=== PATIENT | female | born 1955 | race Caucasian/White ===

== ENCOUNTER 2020-07-16 14:34 | Outpatient (REF) | payer MEDICARE, OTHER, SELFPAY | END 2020-07-16 14:35 | disposition home or self-care (01) | LOC: HO.LNP 14:34 | PROVIDERS: Visit Provider Otolaryngology | DX: B37.0 Candidal stomatitis (principal) | CPT/HCPCS: 87102 ==

== ENCOUNTER 2020-07-25 09:20 | Outpatient (REF) | payer MEDICARE, OTHER, SELFPAY ==
[2020-07-25 10:45] LABS: Glucose Urine UA NEG (NEG); Leukocyte Esterase Urine 2+ (NEG); Nitrite Urine NEG (NEG); PH 6.5 (5.0-8.0); Specific Gravity - Urine 1.015 (1.005-1.025); Urine Blood NEG (NEG); Urine Ketones NEG (NEG); Urine Protein NEG (NEG-TRACE)
[2020-07-25 10:47] LABS: Appearance Urine HAZY; Color Urine YELLOW
[2020-07-25 10:59] LABS: Bacteria Urine TRACE /LPF; RBC Urine 0 /HPF (0); Squamous Epithelial Cell Urine 1+ /LPF
[2020-07-25 11:05] LABS: Alanine Aminotransferase 13 U/L (0-31); Albumin Level 4.1 g/dL (3.5-5.0); Alkaline Phosphatase 109 U/L (39-117); Anion Gap 11 (12-20); Aspartate Amino Transferase 18 U/L (5-31); Bilirubin Total 0.6 mg/dL (0.0-1.0); Blood Urea Nitrogen 18 mg/dL (9-16); Calcium 9.4 mg/dL (8.4-10.2); Carbon Dioxide 28 mmol/L (22-29); Chloride 104 mmol/L (96-108); Cholesterol 221 mg/dL; Estimated Glomerular Filt Rate 48; Glucose Random 95 mg/dL (60-115); Potassium 4.6 mmol/l (3.3-5.1); Sodium 138 mmol/L (135-145)
== END 2020-07-25 09:21 | disposition home or self-care (01) ==
LOC: HO.10HDL 09:20
PROVIDERS: Visit Provider Internal Medicine
DX: N18.9 Chronic kidney disease, unspecified (principal); K21.9 Gastro-esophageal reflux disease without esophagitis; M54.9 Dorsalgia, unspecified
CPT/HCPCS: 80053; 81001; 82465

== ENCOUNTER 2020-08-02 09:39 | Outpatient (REF) | payer MEDICARE, OTHER, SELFPAY ==
[2020-08-02 10:57] LABS: Glucose Urine UA NEG (NEG); Leukocyte Esterase Urine TRACE (NEG); Nitrite Urine NEG (NEG); PH 6.5 (5.0-8.0); Urine Blood NEG (NEG); Urine Ketones NEG (NEG); Urine Protein NEG (NEG-TRACE)
[2020-08-02 11:00] LABS: Appearance Urine CLEAR; Color Urine YELLOW
[2020-08-02 11:23] LABS: RBC Urine 0 /HPF (0); WBC Urine 0-2 /HPF (0-4)
[2020-08-02 11:24] LABS: Squamous Epithelial Cell Urine 1+ /LPF
== END 2020-08-02 09:40 | disposition home or self-care (01) ==
LOC: HO.10HDL 09:39
PROVIDERS: PCP Internal Medicine; Visit Provider Internal Medicine
DX: R30.0 Dysuria (principal)
CPT/HCPCS: 81001; 81003; 87086

== ENCOUNTER → 2020-08-14 11:08 | Outpatient (BNVA) | payer MEDICARE, OTHER, SELFPAY | PROVIDERS: PCP Internal Medicine; Referring Provider Internal Medicine; Visit Provider Obstetrics & Gynecology | DX: N81.4 Uterovaginal prolapse, unspecified (principal) | CPT/HCPCS: 99212 ==

== ENCOUNTER 2020-08-22 15:34 | Outpatient (REF) | payer MEDICARE, OTHER, SELFPAY | END 2020-08-22 15:35 | disposition home or self-care (01) | LOC: HO.LAB 15:34 | PROVIDERS: Visit Provider Internal Medicine | DX: Z20.828 Contact with and (suspected) exposure to other viral communicable diseases (principal) | CPT/HCPCS: C9803; U0003 ==

== ENCOUNTER 2020-09-03 09:02 | Outpatient (REF) | payer MEDICARE, OTHER, SELFPAY ==
[2020-09-03 10:44] LABS: Cholesterol 223 mg/dL; HDL Cholesterol 86 mg/dL; LDL Cholesterol Calculated 120 mg/dl; Triglycerides 85 mg/dL
== END 2020-09-03 09:03 | disposition home or self-care (01) ==
LOC: HO.10HDL 09:02
PROVIDERS: Visit Provider Internal Medicine
DX: E78.00 Pure hypercholesterolemia, unspecified (principal); N18.9 Chronic kidney disease, unspecified
CPT/HCPCS: 80061

== ENCOUNTER → 2020-09-16 10:16 | Outpatient (BNV) | payer MEDICARE, OTHER, SELFPAY | PROVIDERS: PCP Internal Medicine; Visit Provider Internal Medicine | DX: Z86.000 Personal history of in-situ neoplasm of breast (principal); Z85.528 Personal history of other malignant neoplasm of kidney; K76.89 Other specified diseases of liver | CPT/HCPCS: 99213; 99214 ==

== ENCOUNTER 2020-09-17 07:56 | Outpatient (REF) | payer MEDICARE, OTHER, SELFPAY | END 2020-09-17 07:57 | disposition home or self-care (01) | LOC: HO.LAB 07:56 | PROVIDERS: Visit Provider Internal Medicine | DX: Z20.828 Contact with and (suspected) exposure to other viral communicable diseases (principal) | CPT/HCPCS: C9803; U0003 ==

== ENCOUNTER → 2020-09-24 10:02 | Outpatient (BNVA) | payer MEDICARE, OTHER, SELFPAY | PROVIDERS: PCP Internal Medicine; Referring Provider Internal Medicine; Visit Provider Surgery | DX: D05.02 Lobular carcinoma in situ of left breast (principal); M79.89 Other specified soft tissue disorders | CPT/HCPCS: 99212 ==

== ENCOUNTER 2020-09-27 11:01 | Outpatient (REF) | payer MEDICARE, OTHER, SELFPAY ==
--- NOTE | 2020-09-27 | MM_ITS ---
EXAMINATION: MM SCREENING DIGITAL BREAST TOMOSYNTHESIS, BILATERAL CLINICAL INFORMATION: Screening. Asymptomatic. The lifetime risk of breast cancer based on the Tyrer-Cuzick Model is 40%. COMPARISON: Mammography: 09/18/2019, 09/12/2018, 09/10/2017, 09/07/2016; MRI breasts 03/28/2020. TECHNIQUE: Digital breast tomosynthesis is performed in both the craniocaudal and mediolateral oblique views along with computer-aided detection (CAD). Synthesized 2D images are generated from the tomosynthesis. FINDINGS: The breasts are heterogeneously dense, which may obscure small masses (ACR BI-RADS breast composition Category c). There are no significant masses, abnormal calcifications, or other abnormalities. Parenchymal pattern is similar to prior studies. Again, there is some subtle scarring posterior upper outer left breast. No significant changes. MM/MM tomosynthesis screening BI IMPRESSION: No significant changes from prior studies. ASSESSMENT: BI-RADS 2: Benign RECOMMENDATION: 1. Routine annual mammography screening. 2. Additional annual high risk adjunct screening with MRI as clinical risk factors warrant. This patient's information was entered into a reminder system with a target due date for their next mammogram.
== END 2020-09-27 11:02 | disposition home or self-care (01) ==
LOC: HO.MAMMO 11:01
PROVIDERS: PCP Internal Medicine; Visit Provider Internal Medicine
DX: Z12.31 Encounter for screening mammogram for malignant neoplasm of breast (principal)
CPT/HCPCS: 77063; 77067

== ENCOUNTER 2020-09-30 08:28 | Outpatient (REF) | payer MEDICARE, OTHER, SELFPAY | END 2020-09-30 08:29 | disposition home or self-care (01) | LOC: HO.LAB 08:28 | PROVIDERS: PCP Internal Medicine; Visit Provider Internal Medicine | DX: Z20.828 Contact with and (suspected) exposure to other viral communicable diseases (principal) | CPT/HCPCS: C9803; U0003 ==

== ENCOUNTER 2020-11-19 07:31 | Outpatient (REF) | payer MEDICARE, OTHER, SELFPAY | END 2020-11-19 07:32 | disposition home or self-care (01) | LOC: HO.LAB 07:31 | PROVIDERS: Visit Provider Internal Medicine | DX: Z20.822 Contact with and (suspected) exposure to COVID-19 (principal) | CPT/HCPCS: 36415; C9803; U0003; U0005 ==

== ENCOUNTER 2021-01-14 10:40 | Outpatient (REF) | payer MEDICARE, OTHER, SELFPAY ==
[2021-01-14 14:14] LABS: MANUAL DIFF FLAG NO
[2021-01-14 14:30] LABS: Basophils Absolute Auto 0.1 X10*3/uL (0.0-0.2); Basophils Percent Auto 0.7 % (0-2); Eosinophils Absolute Auto 0.2 X10*3/uL (0.0-0.4); Eosinophils Percent Auto 1.7 % (0-4); Hematocrit 42.6 % (37-47); Hemoglobin 13.6 g/dl (12.0-16.0); Imm Gran Abs Auto 0.09 X10*3/uL (0.00-0.03); Lymphocytes Absolute Auto 2.6 X10*3/uL (1.2-4.9); Lymphocytes Percent Auto 30.2 % (20-40); Mean Corpuscular HGB Conc 31.9 g/dl (31.0-35.0); Mean Corpuscular Hemoglobin 29.3 pg (27.0-33.0); Mean Corpuscular Volume 91.8 fL (80-98); Mean Platelet Volume 9.9 fL (9.4-12.3); Monocytes Absolute Auto 0.6 X10*3/uL (0.1-1.2); Monocytes Percent Auto 7.1 % (2-11); Neutrophils Absolute Auto 5.2 X10*3/uL (2.0-8.3); Neutrophils Percent Auto 59.3 % (45-73); Platelet Count 420 X10*3/uL (160-400); Red Blood Count 4.64 X10*6/uL (4.20-5.50); White Blood Count 8.7 X10*3/uL (4.8-10.8)
[2021-01-14 14:41] LABS: Alanine Aminotransferase 13 U/L (0-31); Albumin Level 3.9 g/dL (3.5-5.0); Alkaline Phosphatase 91 U/L (39-117); Anion Gap 13 (12-20); Aspartate Amino Transferase 15 U/L (5-31); Bilirubin Total 0.8 mg/dL (0.0-1.0); Blood Urea Nitrogen 14 mg/dL (9-16); C Reactive Protein 0.06 mg/dL (< or = 0.50); Calcium 9.6 mg/dL (8.4-10.2); Carbon Dioxide 26 mmol/L (22-29); Chloride 110 mmol/L (96-108); Estimated Glomerular Filt Rate 46; Glucose Random 86 mg/dL (60-115); Potassium 4.7 mmol/L (3.3-5.1); Sodium 144 mmol/L (135-145); Total Protein 6.7 g/dL (6.5-8.0)
[2021-01-14 15:02] LABS: Vitamin D 25-OH Total 37.8 ng/mL (>30)
[2021-01-14 16:45] LABS: Vitamin B12 607 pg/mL (200-900)
== END 2021-01-14 10:41 | disposition home or self-care (01) ==
LOC: HO.10HDL 10:40
PROVIDERS: Visit Provider Internal Medicine
DX: N18.9 Chronic kidney disease, unspecified (principal); R53.83 Other fatigue; M54.9 Dorsalgia, unspecified
CPT/HCPCS: 36415; 80053; 82306; 82607; 85025; 86140

== ENCOUNTER → 2021-01-22 14:52 | Outpatient (BNVA) | payer MEDICARE, OTHER, SELFPAY | PROVIDERS: PCP Internal Medicine; Visit Provider Surgery | DX: K43.2 Incisional hernia without obstruction or gangrene (principal) | CPT/HCPCS: 99212 ==

== ENCOUNTER 2021-02-07 13:11 | Outpatient (REF) | payer MEDICARE, OTHER, SELFPAY ==
--- NOTE | ~2021-02-07 | CT_ITS ---
EXAMINATION: CT ABDOMEN AND PELVIS WITHOUT CONTRAST CLINICAL INFORMATION: Incisional hernia COMPARISON: Previous CT of the abdomen and pelvis January 2010, CT of the pelvis January 2017, MRI of the abdomen March 2018 and abdominal ultrasound October 2015 TECHNIQUE: Multidetector volumetric imaging was performed from the superior aspect of the liver through the pubic symphysis. Sagittal and coronal reformatted images were obtained on the technologist's workstation. This CT examination was performed using dose optimization techniques as appropriate, variously including the following: *Automated exposure control *Adjustment of mA and/or kV according to patient size (this includes techniques or standardized protocols for targeted exams where dose is matched to indication/reason for exam; i.e. extremities or head) *Use of iterative reconstruction technique DLP: 506 mGy-cm FINDINGS: LUNG BASES: The visualized lung bases are unremarkable. LIVER, GALLBLADDER, AND BILIARY TREE: The liver is normal in size, shape, and attenuation. No focal hepatic lesion or biliary ductal dilatation is present. The gallbladder is unremarkable with no evidence of radiopaque gallstones, gallbladder wall thickening, or obvious pericholecystic inflammatory changes. PANCREAS: Unremarkable. SPLEEN: Unremarkable. ADRENAL GLANDS: Unremarkable. KIDNEYS AND URETERS: The left kidney has been removed. The right kidney is normal appearing. BLADDER: Unremarkable. GASTROINTESTINAL TRACT: There is diverticulosis of the colon. There is a left lateral abdominal wall or spigelian hernia containing colon. Small and large bowel is otherwise unremarkable. The appendix is is not identified with certainty. There are no inflammatory changes seen in the right lower quadrant. There is an esophageal hernia. ABDOMINAL WALL: There is a left lateral abdominal wall or spigelian hernia containing left colon. There is no evidence of obstruction. There is a small umbilical hernia containing fat. LYMPH NODES: Normal. VASCULAR: Unremarkable. PELVIC VISCERA: The endometrium appears slightly thickened for a postmenopausal patient measuring 1 cm. This is significantly improved from previous CT scan May 2017 when this measured approximately 3.5 cm. This could be better assessed with ultrasound if clinically indicated. OSSEOUS STRUCTURES: There are mild degenerative changes of the spine. CT/CT abdomen pelvis wo con IMPRESSION: Left lateral abdominal wall or spigelian hernia containing left colon. No evidence of obstruction. Diverticulosis of the colon. Small umbilical hernia containing fat. Interval decrease in endometrial thickening compared to previous pelvic CT from 2017. Post left nephrectomy. Small esophageal hernia.
== END 2021-02-07 13:12 | disposition home or self-care (01) ==
LOC: HO.CT 13:11
PROVIDERS: Visit Provider Surgery
DX: K43.2 Incisional hernia without obstruction or gangrene (principal)
CPT/HCPCS: 74176

== ENCOUNTER → 2021-02-20 15:29 | Outpatient (BNVA) | payer MEDICARE, OTHER, SELFPAY | PROVIDERS: PCP Internal Medicine; Visit Provider Surgery | DX: K43.2 Incisional hernia without obstruction or gangrene (principal) | CPT/HCPCS: 99212 ==

== ENCOUNTER 2021-04-24 10:51 | Outpatient (REF) | payer MEDICARE, OTHER, SELFPAY ==
[2021-04-24 13:58] LABS: Blood Urea Nitrogen 13 mg/dL (9-16); Estimated Glomerular Filt Rate 45
== END 2021-04-24 10:52 | disposition home or self-care (01) ==
LOC: HO.10HDL 10:51
PROVIDERS: Visit Provider Surgery
DX: C50.919 Malignant neoplasm of unspecified site of unspecified female breast (principal)
CPT/HCPCS: 36415; 82565; 84520

== ENCOUNTER 2021-04-30 09:50 | Outpatient (REF) | payer MEDICARE, OTHER, SELFPAY ==
--- NOTE | ~2021-04-30 | MR_ITS ---
EXAMINATION: MR BREAST WITHOUT AND WITH CONTRAST, BILATERAL CLINICAL INFORMATION: 65-year-old for high-risk screening family history maternal aunt, lifetime risk 40%, previous high-risk lesion LCIS status post excision left breast. COMPARISON: MRI 03/28/2020, 01/31/2019 and 01/05/2018. Correlation to mammogram of 09/27/2020. TECHNIQUE: Imaging was performed with a dedicated breast coil. Prior to the administration of contrast, bilateral axial T1 and bilateral axial T2 weighted sequences were obtained. After the uneventful administration of?6.5 mL of Gadavist, dynamic contrast-enhanced VIBRANT series through the breasts in the axial plane were performed. Subtracted images were performed and reviewed. A delayed sagittal sequence through both breasts was acquired. Additionally, CAD post-processing, including maximum intensity projections, 3-D reconstructions and kinetic analysis, were performed an independent workstation and reviewed by the interpreting radiologist is a portion of this exam. FINDINGS: The patient's fibroglandular tissue demonstrates significant background enhancement. LEFT BREAST: There is motion artifact which decreases the overall sensitivity of this study. There are multiple dilated ductal structures consistent with duct ectasia. These were present on prior examinations and are unchanged. There are no areas of mass or non-mass enhancement suspicious of malignancy. There is architectural distortion from prior excision upper outer quadrant. There are no new areas of mass or non-mass enhancement suspicious of malignancy. There are no additional findings on T2-weighted imaging or kinetic curve analysis. RIGHT BREAST: Similar to the contralateral breast, motion artifact decreases the overall sensitivity of this study. There are multiple dilated ductal structures consistent with duct ectasia. There are no areas of mass or non-mass enhancement suspicious of malignancy. There are no secondary signs of malignancy. There are no additional findings on T2-weighted imaging or kinetic curve analysis. There is no suspicious internal mammary chain or axillary adenopathy. Limited views of the chest and abdomen are unremarkable. MR/MR breast BI wo/w con IMPRESSION: Bilateral duct ectasia. No new MR findings suspicious of malignancy. ASSESSMENT: LEFT BREAST: BI-RADS 2, benign. RIGHT BREAST: BI-RADS 2, benign. RECOMMENDATIONS: Routine mammographic imaging as per most recent study and MRI as per high-risk protocol.
== END 2021-04-30 09:51 | disposition home or self-care (01) ==
LOC: HO.MRI 09:50
PROVIDERS: PCP Internal Medicine; Visit Provider Surgery
DX: C50.919 Malignant neoplasm of unspecified site of unspecified female breast (principal)
CPT/HCPCS: 77049; A9585

== ENCOUNTER → 2021-05-07 13:00 | Outpatient (BNVA) | payer MEDICARE, OTHER, SELFPAY | PROVIDERS: PCP Internal Medicine; Visit Provider Orthopaedic Surgery | DX: M18.12 Unilateral primary osteoarthritis of first carpometacarpal joint, left hand (principal); M66.242 Spontaneous rupture of extensor tendons, left hand; M66.241 Spontaneous rupture of extensor tendons, right hand | CPT/HCPCS: 20600; 99202; J1020 ==

== ENCOUNTER 2021-05-14 10:03 | Outpatient (REF) | payer MEDICARE, OTHER, SELFPAY ==
[2021-05-14 14:20] LABS: C Reactive Protein 0.05 mg/dL (< or = 0.50); Rheumatoid Factor < 15.0 IU/mL (<15.0)
[2021-05-16 13:11] LABS: Anti Nuclear Antibody Screen NEGATIVE (NEGATIVE)
== END 2021-05-14 10:04 | disposition home or self-care (01) ==
LOC: HO.10HDL 10:03
PROVIDERS: Absent Provider Orthopaedic Surgery; PCP Internal Medicine; Visit Provider Internal Medicine
DX: M79.643 Pain in unspecified hand (principal)
CPT/HCPCS: 36415; 86038; 86039; 86140; 86431

== ENCOUNTER 2021-08-12 08:42 | Outpatient (REF) | payer MEDICARE, OTHER, SELFPAY ==
[2021-08-12 10:07] LABS: MANUAL DIFF FLAG NO
[2021-08-12 10:11] LABS: Basophils Absolute Auto 0.1 X10*3/uL (0.0-0.2); Basophils Percent Auto 0.6 % (0-2); Eosinophils Absolute Auto 0.3 X10*3/uL (0.0-0.4); Eosinophils Percent Auto 3.1 % (0-4); Hemoglobin 13.4 g/dl (12.0-16.0); Imm Gran Abs Auto 0.06 X10*3/uL (0.00-0.03); Imm Gran Pct Auto 0.7 % (0.0-0.4); Lymphocytes Absolute Auto 2.9 X10*3/uL (1.2-4.9); Lymphocytes Percent Auto 35.3 % (20-40); Mean Corpuscular HGB Conc 31.9 g/dl (31.0-35.0); Mean Corpuscular Hemoglobin 29.1 pg (27.0-33.0); Mean Corpuscular Volume 91.3 fL (80.0-98.0); Mean Platelet Volume 9.7 fL (9.4-12.3); Monocytes Absolute Auto 0.6 X10*3/uL (0.1-1.2); Monocytes Percent Auto 7.8 % (2-11); Neutrophils Absolute Auto 4.26 x10*3/uL (2.0-8.3); Neutrophils Percent Auto 52.5 % (45-73); Platelet Count 385 X10*3/uL (160-400); Red Cell Distribution Width 12.6 % (11.0-16.0); White Blood Count 8.1 X10*3/uL (4.8-10.8)
[2021-08-12 10:38] LABS: Alanine Aminotransferase 16 U/L (0-31); Alkaline Phosphatase 105 U/L (39-117); Anion Gap 11 (12-20); Aspartate Amino Transferase 20 U/L (5-31); Bilirubin Total 0.7 mg/dL (0.0-1.0); Blood Urea Nitrogen 16 mg/dL (9-16); Calcium 9.6 mg/dL (8.4-10.2); Carbon Dioxide 30 mmol/L (22-29); Chloride 108 mmol/L (96-108); Cholesterol 236 mg/dL; Estimated Glomerular Filt Rate 44; Glucose Fasting 90 mg/dL (60-99); HDL Cholesterol 77 mg/dL; LDL Cholesterol Calculated 139 mg/dl; Potassium 4.8 mmol/L (3.3-5.1); Sodium 144 mmol/L (135-145); Total Protein 6.8 g/dL (6.5-8.0); Triglycerides 101 mg/dL
== END 2021-08-12 08:43 | disposition home or self-care (01) ==
LOC: HO.10HDL 08:42
PROVIDERS: Visit Provider Internal Medicine
DX: I10 Essential (primary) hypertension (principal); E78.00 Pure hypercholesterolemia, unspecified; K21.9 Gastro-esophageal reflux disease without esophagitis
CPT/HCPCS: 36415; 80053; 80061; 85025

== ENCOUNTER 2021-09-02 09:22 | Outpatient (REF) | payer MEDICARE, OTHER, SELFPAY ==
--- NOTE | ~2021-09-02 | XR_ITS ---
EXAMINATION: XR HAND, LEFT CLINICAL INFORMATION: Left hand pain COMPARISON: 10/16/2019 TECHNIQUE: PA, lateral, and oblique views of the left hand. FINDINGS: No acute abnormality compared to 10/16/2019. There is 0.5 cm of ulna negative variance. Carpal bones are intact and have normal alignment. At the first carpometacarpal joint, there are findings of chronic loss of joint space, subarticular sclerosis, subarticular cystic change and osteophyte formation. There is chronic dorsal, radial subluxation of the thumb metacarpal at this degenerated joint. No acute fractures. There appears to be chronic flexion of the proximal interphalangeal joint and extension of the MCP joint of the fifth digit. No erosions or periostitis. XR/XR hand LT min 3V IMPRESSION: Chronic, severe osteoarthritis of the first carpometacarpal joint.
== END 2021-09-02 09:23 | disposition home or self-care (01) ==
LOC: HO.HOSX 09:22
PROVIDERS: Visit Provider Orthopaedic Surgery
DX: M79.642 Pain in left hand (principal); M18.12 Unilateral primary osteoarthritis of first carpometacarpal joint, left hand; M66.241 Spontaneous rupture of extensor tendons, right hand; M66.242 Spontaneous rupture of extensor tendons, left hand
CPT/HCPCS: 73130; 99212; J1020

== ENCOUNTER 2021-09-29 10:08 | Outpatient (REF) | payer MEDICARE, OTHER, SELFPAY ==
--- NOTE | ~2021-09-29 | MM_ITS ---
EXAMINATION: MM SCREENING DIGITAL BREAST TOMOSYNTHESIS, BILATERAL CLINICAL INFORMATION: Screening. Asymptomatic. Prior history left breast LCIS, status post excision 05/11/2014. The lifetime risk of breast cancer based on the Tyrer-Cuzick Model is 38%. COMPARISON: Mammography: 09/27/2020, 09/18/2019, 09/12/2018; MR breasts 04/30/2021. TECHNIQUE: Digital breast tomosynthesis is performed in both the craniocaudal and mediolateral oblique views along with computer-aided detection (CAD). Synthesized 2D images are generated from the tomosynthesis. FINDINGS: The breasts are heterogeneously dense, which may obscure small masses (ACR BI-RADS breast composition Category c). Parenchymal pattern is similar to prior studies. There is bilateral duct ectasia, greater retroareolar right breast. Some old postsurgical scarring again seen posterior central upper left breast. Neither breast shows significant mass or architectural abnormality or abnormal calcifications. No significant changes from prior studies. MM/MM tomosynthesis screening BI IMPRESSION: No significant changes from prior exams. ASSESSMENT: BI-RADS 2: Benign RECOMMENDATION: 1. Routine annual mammography screening. 2. The lifetime risk of breast cancer based on the Tyrer-Cuzick Model is 38%. Additional annual adjunct screening with breast MRI may be of benefit in women with a risk score of 20% or greater. This patient's information was entered into a reminder system with a target due date for their next mammogram.
== END 2021-09-29 10:09 | disposition home or self-care (01) ==
LOC: HO.MAMMO 10:08
PROVIDERS: Visit Provider Internal Medicine
DX: Z12.31 Encounter for screening mammogram for malignant neoplasm of breast (principal)
CPT/HCPCS: 77063; 77067

== ENCOUNTER 2021-10-23 09:48 | Outpatient (REF) | payer MEDICARE, OTHER, SELFPAY ==
[2021-10-28 04:51] LABS: HPV mRNA E6/E7 rflx Not Detected (Not Detected)
== END 2021-10-23 09:49 | disposition home or self-care (01) ==
LOC: HO.LAB 09:48
PROVIDERS: PCP Internal Medicine; Visit Provider Obstetrics & Gynecology
DX: Z01.411 Encounter for gynecological examination (general) (routine) with abnormal findings (principal); Z11.51 Encounter for screening for human papillomavirus (HPV); N81.4 Uterovaginal prolapse, unspecified
CPT/HCPCS: 87624; 88142

== ENCOUNTER 2021-12-03 11:34 | Outpatient (REF) | payer MEDICARE, OTHER, SELFPAY ==
[2021-12-03 13:57] LABS: MANUAL DIFF FLAG NO
[2021-12-03 14:00] LABS: Basophils Absolute Auto 0.1 X10*3/uL (0.0-0.2); Basophils Percent Auto 0.8 % (0-2); Eosinophils Absolute Auto 0.2 X10*3/uL (0.0-0.4); Eosinophils Percent Auto 2.4 % (0-4); Hematocrit 42.2 % (37.0-47.0); Hemoglobin 13.4 g/dl (12.0-16.0); Imm Gran Abs Auto 0.04 X10*3/uL (0.00-0.03); Imm Gran Pct Auto 0.6 % (0.0-0.4); Lymphocytes Percent Auto 28.7 % (20-40); Mean Corpuscular HGB Conc 31.8 g/dl (31.0-35.0); Mean Corpuscular Hemoglobin 28.8 pg (27.0-33.0); Mean Corpuscular Volume 90.6 fL (80.0-98.0); Monocytes Absolute Auto 0.6 X10*3/uL (0.1-1.2); Monocytes Percent Auto 8.2 % (2-11); Neutrophils Absolute Auto 4.2 x10*3/uL (2.0-8.3); Neutrophils Percent Auto 59.3 % (45-73); Platelet Count 440 X10*3/uL (160-400); Red Blood Count 4.66 X10*6/uL (4.20-5.50); Red Cell Distribution Width 12.8 % (11.0-16.0); White Blood Count 7.1 X10*3/uL (4.8-10.8)
[2021-12-03 14:10] LABS: Appearance Urine HAZY; Color Urine YELLOW; Glucose Urine UA NEG (NEG); Leukocyte Esterase Urine TRACE (NEG); Nitrite Urine NEG (NEG); UACC Culture Trigger YES; Urine Blood NEG (NEG); Urine Ketones NEG (NEG); Urine Protein NEG (NEG-TRACE)
[2021-12-03 14:28] LABS: Alanine Aminotransferase 10 U/L (0-31); Alkaline Phosphatase 92 U/L (39-117); Anion Gap 14 (12-20); Aspartate Amino Transferase 18 U/L (5-31); Bilirubin Total 1.3 mg/dL (0.0-1.0); Blood Urea Nitrogen 10 mg/dL (9-16); C Reactive Protein 0.06 mg/dL (< or = 0.50); Calcium 10.3 mg/dL (8.4-10.2); Carbon Dioxide 27 mmol/L (22-29); Chloride 104 mmol/L (96-108); Estimated Glomerular Filt Rate 42; Glucose Random 85 mg/dL (60-115); Potassium 5.2 mmol/L (3.3-5.1); Sodium 140 mmol/L (135-145); Total Protein 6.9 g/dL (6.5-8.0)
[2021-12-03 14:42] LABS: Renal Epithelial Cells Urine 1+ /LPF; Squamous Epithelial Cell Urine TRACE /LPF
[2021-12-03 14:43] LABS: RBC Urine 0 /HPF (0)
== END 2021-12-03 11:35 | disposition home or self-care (01) ==
LOC: HO.10HDL 11:34
PROVIDERS: Visit Provider Internal Medicine
DX: N18.9 Chronic kidney disease, unspecified (principal); M54.9 Dorsalgia, unspecified; K58.9 Irritable bowel syndrome, unspecified
CPT/HCPCS: 36415; 80053; 81001; 81003; 85025; 86140; 87086

== ENCOUNTER 2021-12-15 08:21 | Outpatient (REF) | payer MEDICARE, OTHER, SELFPAY | END 2021-12-15 08:22 | disposition home or self-care (01) | LOC: HO.HMGCX 08:21 | PROVIDERS: PCP Internal Medicine; Visit Provider Internal Medicine | DX: Z13.89 Encounter for screening for other disorder (principal) ==

== ENCOUNTER → 2021-12-17 12:39 | Outpatient (BNVA) | payer MEDICARE, OTHER, SELFPAY | PROVIDERS: PCP Internal Medicine; Visit Provider Orthopaedic Surgery | DX: M66.241 Spontaneous rupture of extensor tendons, right hand (principal); M66.242 Spontaneous rupture of extensor tendons, left hand; M18.12 Unilateral primary osteoarthritis of first carpometacarpal joint, left hand | CPT/HCPCS: 99212; J1020 ==

== ENCOUNTER 2021-12-22 09:40 | Outpatient (REF) | payer MEDICARE, OTHER, SELFPAY | END 2021-12-22 09:41 | disposition home or self-care (01) | LOC: HO.LAB 09:40 | PROVIDERS: PCP Internal Medicine; Visit Provider Obstetrics & Gynecology | DX: R87.615 Unsatisfactory cytologic smear of cervix (principal) | CPT/HCPCS: 88142; 99212 ==

== ENCOUNTER 2022-01-02 08:46 | Outpatient (REF) | payer MEDICARE, OTHER, SELFPAY ==
--- NOTE | ~2022-01-02 | US_ITS ---
EXAMINATION: US ABDOMEN COMPLETE CLINICAL INFORMATION: Low back pain. History of cyst. CRI. COMPARISON: CT abdomen and pelvis 02/07/2021. MRI abdomen 06/19/2021. Ultrasound abdomen 11/08/2015 and 07/12/2012. TECHNIQUE: Real-time imaging of the abdominal viscera. FINDINGS: PANCREAS: Normal. ABDOMINAL AORTA: The proximal, mid, and distal segments are normal in caliber. INFERIOR VENA CAVA: Visualized portions are normal. LIVER: Normal. The liver is normal in size. The liver contour is normal. Parenchymal echogenicity is normal. No focal hepatic lesion. There is no intrahepatic biliary duct dilatation seen. GALLBLADDER: The gallbladder is physiologically distended. There is a small gallstone in the gallbladder. Gallbladder wall is normal. There is no pericholecystic fluid. COMMON BILE DUCT: Normal in caliber measuring 0.4 cm in diameter. RIGHT KIDNEY: Normal. No hydronephrosis. No renal calculi or focal parenchymal lesions. The kidney measures 10.8 cm in maximum dimension. LEFT KIDNEY: Surgically absent. SPLEEN: Normal. The spleen measures 8.3 cm in maximum dimension. FREE FLUID: None. US/US abdomen complete IMPRESSION: Normal-appearing right kidney. Gallstone.
== END 2022-01-02 08:47 | disposition home or self-care (01) ==
LOC: HO.HMGCX 08:46
PROVIDERS: Visit Provider Internal Medicine
DX: M54.50 Low back pain, unspecified (principal)
CPT/HCPCS: 76700

== ENCOUNTER → 2022-01-05 09:04 | Outpatient (BNVA) | payer MEDICARE, OTHER, SELFPAY | PROVIDERS: PCP Internal Medicine; Visit Provider Internal Medicine | DX: M47.816 Spondylosis without myelopathy or radiculopathy, lumbar region (principal); M47.812 Spondylosis without myelopathy or radiculopathy, cervical region; M79.18 Myalgia, other site; M19.90 Unspecified osteoarthritis, unspecified site | CPT/HCPCS: 99202 ==

== ENCOUNTER 2022-01-19 11:49 | Outpatient (REF) | payer MEDICARE, OTHER, SELFPAY | END 2022-01-19 11:50 | disposition home or self-care (01) | LOC: HO.LAB 11:49 | PROVIDERS: PCP Internal Medicine; Visit Provider Obstetrics & Gynecology | DX: R87.615 Unsatisfactory cytologic smear of cervix (principal); R68.81 Early satiety | CPT/HCPCS: 88142; 99212 ==

== ENCOUNTER 2022-02-02 09:45 | Outpatient (REF) | payer MEDICARE, OTHER, SELFPAY ==
--- NOTE | ~2022-02-02 | US_ITS ---
EXAMINATION: US PELVIS CLINICAL INFORMATION: Early satiety. Pelvic discomfort. COMPARISON: None TECHNIQUE: Ultrasound of the pelvis is performed using both transabdominal and transvaginal transducers along with Doppler. Transvaginal imaging is performed due to inadequate visualization transabdominally. FINDINGS: The uterus is retroverted and measures 6.1 x 4 x 4.8 cm in dimension. No focal uterine lesion is seen. The endometrium is thickened for postmenopausal patient measuring 0.9 cm. The endometrium is heterogeneous appearing with multiple small cystic areas. The right ovary is normal and measures 2.5 x 1.8 x 2.1 cm. The left ovary has been removed. There is no fluid in the pelvis. US/US pelvic and transvaginal IMPRESSION: Thickened heterogeneous endometrium measuring 0.9 cm with multiple small cystic areas.
== END 2022-02-02 09:46 | disposition home or self-care (01) ==
LOC: HO.HMGCX 09:45
PROVIDERS: PCP Internal Medicine; Visit Provider Obstetrics & Gynecology
DX: R68.81 Early satiety (principal)
CPT/HCPCS: 76830; 76856

== ENCOUNTER → 2022-02-16 15:03 | Outpatient (BNVA) | payer MEDICARE, OTHER, SELFPAY | PROVIDERS: Visit Provider Obstetrics & Gynecology | DX: R68.81 Early satiety (principal) | CPT/HCPCS: Q3014 ==

== ENCOUNTER 2022-02-25 06:08 | Outpatient (REF) | payer MEDICARE, OTHER, SELFPAY ==
--- NOTE | ~2022-02-25 | FL_ITS ---
EXAMINATION: XR FLUOROSCOPY WITH IMAGES CLINICAL INFORMATION: Spondylosis without myelopathy COMPARISON: None. TECHNIQUE: Fluoroscopy performed by Jacquie Morataya. Fluoroscopy time: 0.2 minutes DAP: 0.742 Gycm2 Images: 2 FINDINGS: There is needle positioned adjacent to left L4, L5 and S1 pedicles with contrast opacifying the soft tissues. Visualized bones are grossly unremarkable FL/FL guidance in treatment room IMPRESSION: Fluoroscopy was provided to referring nurse practitioner for pain management.
== END 2022-02-25 06:09 | disposition home or self-care (01) ==
LOC: HO.RADIR 06:08
PROVIDERS: Visit Provider Internal Medicine
DX: M47.816 Spondylosis without myelopathy or radiculopathy, lumbar region (principal)
CPT/HCPCS: 64493; 64494; J2795; Q9967

== ENCOUNTER → 2022-03-02 11:01 | Outpatient (BNVA) | payer MEDICARE, OTHER, SELFPAY | PROVIDERS: PCP Internal Medicine; Visit Provider Internal Medicine | DX: M47.816 Spondylosis without myelopathy or radiculopathy, lumbar region (principal) | CPT/HCPCS: 99212 ==

== ENCOUNTER 2022-05-22 10:00 | Outpatient (RCR) | payer MEDICARE, OTHER, SELFPAY ==
[2022-03-25 13:54] VITALS: BP 131/62; PULSE 68; O2SAT 97
--- NOTE | 2022-03-25 15:46 | MHC.PT.EP ---
[facility] [place] Office [place] Office [place] Office [address] Chanell Leija [address] [phone] F: [phone] F: [phone] F: [phone] F: [phone] Physical Therapy Plan of Care Date of Evaluation: Date of Surgery: Diagnosis: BACK (LUMBAR SPONDYLOSIS) AND NECK PAIN Assessment: 66 YO FEMALE REF TO PT FOR NECK AND LBP x 2 YRS- OF IMPORTANCE SHE HAD A RECENT Left L3-L4-L5 Diagnostic MBBs W SOME RELIEF. SIGNIFICANT MED H/O-> LEFT NEPHRECTOMY 2018 DUE TO CA, (+) UTERINE AND VAGINAL PROLAPSE. OBJECTIVE FINDINGS: DECR POSTURE, LIMITED ROM IN TRUNK/ CERV/ HIPS; DECR STRENGTH IN PROX HIPS/ GLUTES/ABDOM; (+) SCAR TISSUE RESTRICTION LEFT LLQ; (+) PELVIC ASYMM, INCR TOSSUE TENSION RAEANN UT/ THORACOLUMB PS MM; AND PAIN RAEANN CERV/ LB. FUNCTIONALLY, Pt REUIRES A 1 HOUR SUPINE LYING SESSION DAILY, DECR STAND > 30 MIN, SITTING, SLEEPING- SHE HAS PAIN ALL THE TIME, HOWEVER THE INTENSITY VARIES. Pt WOULD BENEFIT FROM PT TO ADDRESS THE ABOVE FINDINGS, PAIN AND SOFT TISSUE MGMT, AND DEV A PROGR HEP/ SELF-SX MGMT PROGRAM TO ENABLE HER TO MPROVE HER FUNCT MOB MARIA E. Frequency and Duration: The patient will be seen 2 x WK x 8 WKS Short Term Goals: *Pt'S NECK AND LBP DECR TO 3-4/10 IN 2 WKS *Pt DEMON WFL AROM IN CERV AND RAEANN HIP ROTAT/ TRUNK IN 2 WKS * Pt DEMON PROPER FUNCT SQUAT AND POSTURAL SELF-CORRECT TECHN IN 2 WKS * Pt DEMON EFFICIENT ABDOM MM ACTIV W ADL SIMUL AND EXER IN 2 WKS Rv Servicer Goals: *Pt SIMUL 3:3 ADLs / WORK TASKS W PROPER MECHANICS IN 4 WKS *Pt DEMON IMPROVED CORE STAB/ STRENGTH EVIDENT IN IMPROVED OSWESTRY SCORE BY 3-5 POINTS (7/50 AT EVAL) IN 8 WKS *Pt INDEP W HEP, PROGRESSIVE STRENGTHENING, AND SELF-SX MGMT STRATEGIES IN 8 WKS Treatment Plan: Modalities to reduce pain, spasms and effusion. Manual therapy to restore motion and function. Therapeutic exercise to improve strength and flexibility. Neuromuscular re-education for posture and balance. Therapeutic activities to return to functional activities of daily living. Electronically signed by: Jemma Santiago PT Please sign and return to therapist. Thank you for your referral.
--- NOTE | 2022-05-22 10:43 | MHC.PT.DC ---
[facility] [place] Office [place] Office [place] Office [address] Chanell Leija [address] [phone] F: [phone] F: [phone] F: [phone] F: [phone] Physical Therapy Discharge Report Diagnosis: BACK (LUMBAR SPONDYLOSIS) AND NECK PAIN Date of Surgery: Date of Evaluation: 03/25/22 Date of Discharge: 05/22/22 Treatments to Date: 12 Cancellations to Date: No Shows to Date: Discharge Status: Achieved Goals Improved Function Independent with HEP Discharge Summary: Pt HAS PROGRESSED VERY WELL IN PT- SHE HAS MET HER PT GOALS, ULTIMATELY THAT SHE IS INDEP W SELF-SX MGMT TECHN AND HAS BEEN ABLE TO RESUME THE ACTIVITIES SHE ENJOYS. HER OVERALL PAIN HAS RELATIVELY RESOLVED, ALTHOUGH, SHE PRESENTED TODAY W MORE LOCALIZED UPPER TRAP MUSCLE SORENESS. HER CURRENT OSWESTRY SCORE IS 7/50 AND AT EVAL 18/50.Pt IS INDEP AND COMPLIANT W HER PROGRESSIVE HEP AND IS READY FOR D/C AT THIS TIME. Electronically signed by: Jemma Santiago,PT Please sign and return to therapist. Thank you for your referral.
== END 2022-05-22 10:43 | disposition home or self-care (01) ==
LOC: HO.PT 10:00
PROVIDERS: PCP Internal Medicine; Visit Provider Internal Medicine
DX: M54.50 Low back pain, unspecified (principal); M54.2 Cervicalgia
CPT/HCPCS: 97110; 97112; 97140; 97162

== ENCOUNTER → 2022-07-29 12:50 | Outpatient (BNVA) | payer MEDICARE, OTHER, SELFPAY | PROVIDERS: PCP Internal Medicine; Visit Provider Orthopaedic Surgery | DX: M66.241 Spontaneous rupture of extensor tendons, right hand (principal); M66.242 Spontaneous rupture of extensor tendons, left hand; M18.12 Unilateral primary osteoarthritis of first carpometacarpal joint, left hand | CPT/HCPCS: 20600; 99212; J1020 ==

== ENCOUNTER → 2022-08-17 10:55 | Outpatient (BNVA) | payer MEDICARE, OTHER, SELFPAY | PROVIDERS: PCP Internal Medicine; Referring Provider Internal Medicine; Visit Provider Surgery | DX: Z86.000 Personal history of in-situ neoplasm of breast (principal); Z80.42 Family history of malignant neoplasm of prostate | CPT/HCPCS: 99212 ==

== ENCOUNTER 2022-09-15 12:07 | Outpatient (REF) | payer MEDICARE, OTHER, SELFPAY ==
[2022-09-15 14:32] LABS: Anion Gap 11 (12-20); Blood Urea Nitrogen 15 mg/dL (9-16); Calcium 10.2 mg/dL (8.4-10.2); Carbon Dioxide 28 mmol/L (22-29); Chloride 107 mmol/L (96-108); Estimated Glomerular Filt Rate 49; Glucose Random 93 mg/dL (60-115); Potassium 4.9 mmol/L (3.3-5.1); Sodium 141 mmol/L (135-145)
[2022-09-17 14:14] LABS: Calcium (PTHI) 10.3 mg/dL (8.6-10.4); PTHI 57 pg/mL (16-77)
== END 2022-09-15 12:08 | disposition home or self-care (01) ==
LOC: HO.10HDL 12:07
PROVIDERS: Visit Provider Internal Medicine Hypertension Specialist
DX: N18.31 Chronic kidney disease, stage 3a (principal); Z90.5 Acquired absence of kidney
CPT/HCPCS: 36415; 80048; 83970

== ENCOUNTER 2022-09-15 14:00 | Outpatient (RCR) | payer MEDICARE, OTHER, SELFPAY ==
--- NOTE | 2022-09-09 13:41 | MHC.PT.EP ---
[facility] [place] Office [place] Office [place] Office [address] [phone] F: [phone] F: [phone] F: [phone] F: [phone] Physical Therapy Plan of Care Date of Evaluation: Date of Surgery: Diagnosis: SACROCOCCYGEAL DISORDER Assessment: 66 YO FEMALE REF TO PT FOR EXACERBATION OF HER LB/ SACROILIAL PAIN x 2 MONTHS. Pt HAD BEEN RECENTLY D/C FROM PT IN 05/2022. Pt STATED SHE IS SCHED FOR A HYSTERECTOMY AND BLADDER SUSPENSION IN 11/2022 DUE TO PROLAPSE. Pt HAS LIMITED TRUNK AND Lt HIP ROM, WEAK LUMBOPELVIC REGION, (+) TISSUE TENSION IN RAEANN LS REGION AND TTP Rt > Lt SI Jt. FUNCTIONALLY, Pt IS LIMITED WITH BENDING, SQUATTING, FITNESS WALKING, AND PERFORMING HER OVERALL DAILY TASKS DUE TO PAIN, WHICH IS IN VARYING DEGREES, BUT, CONSTANT. Pt WOULD BENEFIT FROM A TRIAL OF PT TO ADDRESS THESE SXS, IMPROVE BODY MECH AWARENESS AND CARRYOVER TO REDUCE LUMBOPELVIC STRESS, MODIFY HEP, AND REDUCE PAIN / IMPROVE ACTIVITY MARIA E. Frequency and Duration: The patient will be seen 2 x WK x 8 WKS Short Term Goals: *INCREASE HIP ROTAT AND EXTEN STRENGTH RAEANN * DECR LBP/ SI Jt SXS TO 2-3/10 *Pt DEMON INDEP SELF-CORRECT POSTURE/ BODY MECH-> FUNCTIONAL SQUAT *ADDRESS LUMBOPELVIC STABILITY FOR IMPROVED SACROILIAL SYMMETRY Analytical Tech Goals: *Pt DEMON APPROP MECH W 3:3 SIMUL ADLs *Pt INDEP W PROGR HEP AND SELF-SX MGMT TECH *Pt RESUME REG ADLs/ FITNESS WALKING EVIDENT W IMPROVED OSWESTRY SCORE (19/50 AT EVAL) Treatment Plan: Modalities to reduce pain, spasms and effusion. Manual therapy to restore motion and function. Therapeutic exercise to improve strength and flexibility. Neuromuscular re-education for posture and balance. Therapeutic activities to return to functional activities of daily living. Electronically signed by: BETTIE DUBOSE,PT Please sign and return to therapist. Thank you for your referral.
--- NOTE | 2022-10-22 11:09 | MHC.PT.DC ---
[facility] [place] Office [place] Office [place] Office [address] Chanell Leija 140 [facility] [phone] F: [phone] F: [phone] F: [phone] F: [phone] Physical Therapy Discharge Report Diagnosis: SACROCOCCYGEAL DISORDER Date of Surgery: Date of Evaluation: 09/09/22 Date of Discharge: 09/30/22 Treatments to Date: 3 Cancellations to Date: 1 No Shows to Date: 0 Discharge Status: Achieved Goals Improved Function Independent with HEP Discharge Summary: Pt RESPONDED WELL TO PT FOR HER SACROILIAC PAIN- SHE HAS IMPROVED POSTURAL/ BODY MECH AWARENESS WELL A THOROUGH AND PROGRESSIVE HEP. HER PAIN HAS DECREASED IN INTENSITY WELL FREQUENCY/ DURATION. SHE CANC HER LAST SCHED PT APPT AND , THERFORE, A FORMAL RE-ASSESSMENT WAS NOT PERFORMED. Electronically signed by: Jemma Santiago,PT Please sign and return to therapist. Thank you for your referral.
== END 2022-10-22 11:10 | disposition home or self-care (01) ==
LOC: HO.PT 14:00
PROVIDERS: PCP Internal Medicine; Visit Provider Internal Medicine
DX: M53.3 Sacrococcygeal disorders, not elsewhere classified (principal)
CPT/HCPCS: 97110; 97112; 97140; 97163

== ENCOUNTER 2022-09-16 11:39 | Outpatient (REF) | payer MEDICARE, OTHER, SELFPAY ==
[2022-09-16 13:45] LABS: Appearance Urine Clear; Color Urine Yellow; Glucose Urine UA Negative (Negative); Leukocyte Esterase Urine Negative (Negative); Nitrite Urine Negative (Negative); PH 6.5 (5.0-9.0); Specific Gravity - Urine 1.015 (1.005-1.025); Urine Blood Negative (Negative); Urine Ketones Negative (Negative); Urine Protein Negative (Neg-Trace)
[2022-09-16 13:50] LABS: Bacteria Urine None Seen (None Seen); Hyaline Casts Urine 0-2 /LPF (0-2); RBC Urine 0-2 /HPF (0-2); Squamous Epithelial Cell Urine 0-2 /HPF (0-2); WBC Urine 0-5 /HPF (0-5)
[2022-09-16 14:27] LABS: Creatinine Urine 90.87 mg/dL; Total Protein Urine Random < 7 mg/dL (<12)
== END 2022-09-16 11:40 | disposition home or self-care (01) ==
LOC: HO.10HDLNP 11:39
PROVIDERS: Visit Provider Internal Medicine Hypertension Specialist
DX: C50.919 Malignant neoplasm of unspecified site of unspecified female breast (principal)
CPT/HCPCS: 81001; 84156

== ENCOUNTER 2022-09-30 10:38 | Outpatient (REF) | payer MEDICARE, OTHER, SELFPAY ==
--- NOTE | ~2022-09-30 | MM_ITS ---
EXAMINATION: MM SCREENING DIGITAL BREAST TOMOSYNTHESIS, BILATERAL CLINICAL INFORMATION: Screening. Asymptomatic. History left LCIS status post excision 2013. TC score 37%. COMPARISON: Mammography: 09/29/2021, 09/27/2020, 09/18/2019, 09/12/2018 TECHNIQUE: Digital breast tomosynthesis is performed in both the craniocaudal and mediolateral oblique views along with computer-aided detection (CAD). Synthesized 2D images are generated from the tomosynthesis. FINDINGS: The breasts are heterogeneously dense, which may obscure small masses (ACR BI-RADS breast composition Category c). There are no significant masses, abnormal calcifications, or other abnormalities. Parenchymal pattern is similar to prior studies. No developing density or architectural abnormality. Minor postsurgical scarring again noted upper outer left breast. Some mild right retroareolar duct ectasia is stable. The axilla and skin contours are unremarkable. MM/MM tomosynthesis screening BI IMPRESSION: No mammographic evidence of malignancy. ASSESSMENT: BI-RADS 2: Benign RECOMMENDATION: -Routine annual mammography screening. -Additional annual adjunct screening with breast MRI may be of benefit in women with prior history LCIS and dense breast parenchymal pattern. This patient's information was entered into a reminder system with a target due date for their next mammogram.
== END 2022-09-30 10:39 | disposition home or self-care (01) ==
LOC: HO.MAMMO 10:38
PROVIDERS: PCP Internal Medicine; Visit Provider Internal Medicine
DX: Z12.31 Encounter for screening mammogram for malignant neoplasm of breast (principal)
CPT/HCPCS: 77063; 77067

== ENCOUNTER → 2022-10-15 08:55 | Outpatient (BNVA) | payer MEDICARE, OTHER, SELFPAY | PROVIDERS: PCP Internal Medicine; Visit Provider Surgery | DX: D05.02 Lobular carcinoma in situ of left breast (principal); M79.7 Fibromyalgia; M19.90 Unspecified osteoarthritis, unspecified site | CPT/HCPCS: 99212 ==

== ENCOUNTER 2022-10-21 06:05 | Outpatient (REF) | payer MEDICARE, OTHER, SELFPAY ==
--- NOTE | ~2022-10-21 | FL_ITS ---
EXAMINATION: XR FLUOROSCOPY WITH IMAGES CLINICAL INFORMATION: M47.816 - Spondylosis without myelopathy or radiculopathy, lumbar region COMPARISON: None. TECHNIQUE: Fluoroscopy Supervised By: Dr. Daquan Hein. Fluoroscopy Time: 0.1 minutes. Cumulative Dose: 1.37 mGy. DAP: 0.236 Gycm2. Images: 2. FINDINGS: There are spinal needles overlying the outer right L3, L4, and L5 neural foramen. There is contrast seen in the respective nerve sheaths. Some early transforaminal epidural extension is suggested. No visible vascular communication. FL/FL guidance in treatment room IMPRESSION: Fluoroscopy for pain management procedures.
== END 2022-10-21 06:06 | disposition home or self-care (01) ==
LOC: CF 06:05
PROVIDERS: Visit Provider Internal Medicine
DX: M47.816 Spondylosis without myelopathy or radiculopathy, lumbar region (principal)
CPT/HCPCS: 64493; 64494

== ENCOUNTER → 2022-10-23 09:07 | Outpatient (BNVA) | payer MEDICARE, OTHER, SELFPAY | PROVIDERS: PCP Internal Medicine; Visit Provider Internal Medicine | DX: M47.812 Spondylosis without myelopathy or radiculopathy, cervical region (principal); M47.816 Spondylosis without myelopathy or radiculopathy, lumbar region; Z98.890 Other specified postprocedural states | CPT/HCPCS: Q3014 ==

== ENCOUNTER 2022-10-30 09:08 | Outpatient (REF) | payer MEDICARE, OTHER, SELFPAY ==
[2022-10-30 10:25] LABS: MANUAL DIFF FLAG NO
[2022-10-30 10:43] LABS: Basophils Percent Auto 0.6 % (0-2); Eosinophils Absolute Auto 0.2 X10*3/uL (0.0-0.4); Eosinophils Percent Auto 2.2 % (0-4); Hematocrit 41.8 % (37.0-47.0); Hemoglobin 13.5 g/dl (12.0-16.0); Imm Gran Abs Auto 0.04 X10*3/uL (0.00-0.03); Imm Gran Pct Auto 0.6 % (0.0-0.4); Lymphocytes Absolute Auto 1.8 X10*3/uL (1.2-4.9); Mean Corpuscular HGB Conc 32.3 g/dl (31.0-35.0); Mean Corpuscular Hemoglobin 29.6 pg (27.0-33.0); Mean Corpuscular Volume 91.7 fL (80.0-98.0); Mean Platelet Volume 9.7 fL (9.4-12.3); Monocytes Absolute Auto 0.5 X10*3/uL (0.1-1.2); Neutrophils Absolute Auto 4.2 x10*3/uL (2.0-8.3); Neutrophils Percent Auto 62.6 % (45-73); Platelet Count 438 X10*3/uL (160-400); Red Blood Count 4.56 X10*6/uL (4.20-5.50); Red Cell Distribution Width 12.7 % (11.0-16.0); White Blood Count 6.8 X10*3/uL (4.8-10.8)
[2022-10-30 11:15] LABS: Anion Gap 12 (12-20); Blood Urea Nitrogen 14 mg/dL (9-16); Calcium 10.2 mg/dL (8.4-10.2); Carbon Dioxide 28 mmol/L (22-29); Chloride 107 mmol/L (96-108); Estimated Glomerular Filt Rate 45; Glucose Random 86 mg/dL (60-115); Potassium 4.8 mmol/L (3.3-5.1); Sodium 142 mmol/L (135-145)
== END 2022-10-30 09:09 | disposition home or self-care (01) ==
LOC: HO.10HDL 09:08
PROVIDERS: Visit Provider Internal Medicine
DX: I12.9 Hypertensive chronic kidney disease with stage 1 through stage 4 chronic kidney disease, or unspecified chronic kidney disease (principal); N18.9 Chronic kidney disease, unspecified
CPT/HCPCS: 36415; 80048; 85025

== ENCOUNTER → 2023-01-19 09:24 | Outpatient (BNVA) | payer MEDICARE, OTHER, SELFPAY | PROVIDERS: PCP Internal Medicine; Visit Provider Orthopaedic Surgery | DX: M66.241 Spontaneous rupture of extensor tendons, right hand (principal); M66.242 Spontaneous rupture of extensor tendons, left hand; M18.12 Unilateral primary osteoarthritis of first carpometacarpal joint, left hand | CPT/HCPCS: 20600; 20605; 99212; J1020 ==

== ENCOUNTER → 2023-03-02 07:48 | Outpatient (REF) | payer MEDICARE, OTHER, SELFPAY ==
--- NOTE | ~2023-03-02 | NM_ITS ---
Myocardial perfusion study Indication: Palpitations and atypical chest discomfort to evaluate for myocardial ischemia Technique: The patient was brought in for a Lexiscan perfusion study on 03/02/2023. Patient performed low-level exercise and was injected 0.4 mg of Lexiscan intravenously. Within a minute of injection, 25 mCi of sestamibi was given intravenously. Images were obtained using the SPECT gamma camera interlaced with the gating device. Images were obtained in supine position. Resting perfusion study was performed on 03/03/2023. Patient was administered 25 mCi of sestamibi intravenously at rest. Images were then obtained in supine position. Images obtained with and without CT attenuation. Total DLP 98 mGy-cm. Images were processed with the software and compared side to side in short axis, horizontal long axis and vertical long axis views. Findings: The stress perfusion study showed non attenuated images show normal uptake of radiotracer in all segments according. Attenuation corrected images show minimal thinning in the apex of the LV myocardium.. The gated study shows normal LV systolic function with calculated LVEF of 75%. LV cavity is normal in size. The gated study shows normal systolic wall thickening and contraction of segments. Resting study shows no change in perfusion pattern compared to stress perfusion study. Gating at rest reveals normal systolic wall motion with ejection fraction at 70%. The findings are consistent with normal myocardial perfusion. NM/NM carlos perf SPECT rest & str Impression: 1. Myocardial perfusion imaging study shows normal myocardial perfusion 2. Gated LVEF is 70% 3. Transient ischemic dilatation not present EKG is nondiagnostic for ischemia
--- NOTE | 2023-03-02 07:55 | CA_ITS ---
Acquisition Time: 2023-03-02 07:57:04 Total Exercise Time: 00:03:00 Test Indications: Abnormal ECG Medications: PROPRANOLOL ALBUTEROL OMEPRAZOLE SIMVASTATIN TRAMADOL CLARITIN Protocol: EFRAÍN Max HR: 173 BPM 113% of Pred: 152 BPM Max BP: 162/094 mmHG Max Work Load: 4.6 METS PT EXERCISED ON STD EFRAÍN PROTOCOL FOR 3 MIN THRU STAGE 1. MAX [id number]%MAX. SOME SOB, NO CP. 1MMST DEP DIFUSELY. INCREASED HR RESPONSE. CLINICALLY AND ELEC EQUIVOCAL. AWAIT SCAN RESULTS. Referred By: Regino Coe Overread By: MINDI COE MD
== END ==
LOC: HO.CARD 07:48
PROVIDERS: PCP Internal Medicine; Visit Provider Internal Medicine
DX: R06.02 Shortness of breath (principal); R00.2 Palpitations
CPT/HCPCS: 78452; 93017; A9500

== ENCOUNTER 2023-04-09 11:50 | Outpatient (REF) | payer MEDICARE, OTHER, SELFPAY | END 2023-04-09 11:51 | disposition home or self-care (01) | LOC: HO.HOSX 11:50 | PROVIDERS: PCP Internal Medicine; Visit Provider Orthopaedic Surgery | DX: M75.52 Bursitis of left shoulder (principal) | CPT/HCPCS: 20610; 73030; 99212; J1100 ==

== ENCOUNTER 2023-04-12 14:09 | Outpatient (REF) | payer MEDICARE, OTHER, SELFPAY | END 2023-04-12 14:10 | disposition home or self-care (01) | LOC: HO.MRI 14:09 | PROVIDERS: PCP Internal Medicine; Visit Provider Surgery | DX: Z86.000 Personal history of in-situ neoplasm of breast (principal) | CPT/HCPCS: 77049; A9585 ==

== ENCOUNTER 2023-04-21 09:48 | Outpatient (AMB) | payer MEDICARE, OTHER, SELFPAY ==
[2023-04-21 09:53] VITALS: BP 120/57; PULSE 74; BMI 25.0
--- NOTE | 2023-04-21 09:53 | A.OFFVIS_ITS ---
Intake Vital Signs 04/21/23 09:53 Height 5 ft 3 in Weight 141 lb BMI 25.0 BP 120/57 L Blood Pressure Location Rt brachial Position Sitting Pulse 74 Intake Visit Reasons: Breast exam, 6 month follow up and MRI results Intake Note: This patient presents for a six month follow-up breast examination assessment. Patient denies breast complaints at this time. 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 Accompanied by: Self / Same As Patient Allergies fentanyl [FENTANYL] Allergy (Severe, Verified 04/21/23 09:54) SEVERE VOMITING, severe headache, vomiting sulfamethoxazole [From BACTRIM] Allergy (Severe, Verified 04/21/23 09:54) CANNOT TAKE-ONLY HAS ONE KIDNEY trimethoprim [From BACTRIM] Allergy (Severe, Verified 04/21/23 09:54) CANNOT TAKE-ONLY HAS ONE KIDNEY azithromycin [AZITHROMYCIN] Allergy (Intermediate, Verified 04/21/23 09:54) DIARRHEA Medication List - Last Reconciled 04/21/23 by Regino Pierce MD albuterol sulfate 90 mcg/actuation 2 puffs PO DAILY PRN calcium carbonate-vitamin D3 500 mg-3.125 mcg (125 unit) 1 tab PO DAILY kirwhbibqofb-zvefnfyx-ffeahw 1 tab PO DAILY omeprazole magnesium (Prilosec OTC) 20 mg PO DAILY polyethylene glycol 3350 (Miralax) 17 grams PO DAILY propranolol 10 mg PO DAILY psyllium husk (Metamucil) 0.4 grams PO DAILY simvastatin 20 mg PO BEDTIME tramadol 50 mg PO BID PRN HPI Breast exam, 6 month follow up and MRI results HPI Details She is here because of her history of LCIS. She denies any palpable breast masses or nipple or skin changes. She says that she had repair of a prolapsed uterus and bladder last November 2022 in [facility] and had ended with complications of a ureteral injury requiring stenting, and a hematoma. She says she had to udenrgo 3 procedures in 2 days then. She says she feels her symptoms of urinary urgency have worsened since then., She also wants me to check on her hernia on the left lower abdomen. 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 She had repair of this hernia with Dr. Granda but this had recurred. 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 Migraines Osteoarthritis Prolapse of uterus Vaginal prolapse Ventral hernia Surgical History H/O kidney removal History of ankle surgery (~2003) History of breast biopsy (~05/11/14) History of breast surgery History of incisional hernia repair (~11/29/19) History of nephrectomy, left (~06/2018) History of removal of cyst (~1972) History of tonsillectomy and adenoidectomy Hx of tonsillectomy S/P removal of left ovary (~1978) Status post biopsy of kidney (~04/2018) Family History Father Stomach cancer Prostate cancer High cholesterol Sister Stroke Mother High cholesterol CLL (chronic lymphocytic leukemia) Maternal Aunt Breast cancer Social History Household Members: Spouse Housing: House Alcohol intake: current Alcohol intake frequency: holidays/special occasions only Patient Tobacco Use Status: Never used Tobacco Advance Directives Date on File: 07/25/20 service: No Current occupational status: 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 Sexual orientation: Straight/Heterosexual Gender identity: Female Female Reproductive History Menstrual Age of Menarche: 10 Review of Systems Const Denies chills and Denies fever(s) Card Denies chest pain, Denies dyspnea and Denies dyspnea on exertion Resp Denies cough, Denies dyspnea and Denies dyspnea on exertion GI Denies hematochezia and Denies change in bowel habits Denies hematuria and Reports urinary urgency Musc Denies back pain and Denies limited range of motion Neuro Denies focal weakness and Denies convulsions Psych Denies depression and Denies mood swings Physical Exam Vital Signs: Last Vital Signs Pulse 74 04/21/23 09:53 BP 120/57 L 04/21/23 09:53 BMI result Body Mass Index 25.0 Const General: comfortable and no acute distress Chest Other: No palpable breast masses, no nipple or skin changes, no axillary lymphadenopathy Resp Effort & Inspection: normal respiratory effort Cardio Rate: regular rate GI Other: Vague hernia on the left lower quadrant Valsalva, difficult to define margins Palpation (GI): Soft to palpation, not firm, nontender and no guarding Assessment & Plan Assessment & Plan (1) 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 Her MRI from last week does not suggest any breast lesion. She is to continue close surveillance with imaging studies. She is sheduled to have a mammogram in 6 months and I can see her to discuss the findings then. (2) Ventral hernia: Code(s): K43.9 - Ventral hernia without obstruction or gangrene Plan: She describes this hernia on the left lower abdomen from her previous nephrectomy. She had undergone repair of this hernia in the past with Dr. Mock. I will schedule her for a repeat CT to redefine extent of her hernia and guide approach. I will see her again to discuss findings and reviewed with her the technique of the surgery for repair. 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
== END 2023-04-21 10:26 | disposition home or self-care (01) ==
PROVIDERS: PCP Internal Medicine; Visit Provider Surgery
DX: Z86.000 Personal history of in-situ neoplasm of breast (principal); K43.9 Ventral hernia without obstruction or gangrene
CPT/HCPCS: 99214

== ENCOUNTER → 2023-04-21 09:48 | Outpatient (BNVA) | payer MEDICARE, OTHER, SELFPAY | PROVIDERS: PCP Internal Medicine; Visit Provider Surgery | DX: K43.9 Ventral hernia without obstruction or gangrene (principal); Z86.000 Personal history of in-situ neoplasm of breast | CPT/HCPCS: 99212 ==

== ENCOUNTER 2023-05-01 10:54 | Emergency (ER) | payer MEDICARE, OTHER, SELFPAY ==
[2023-05-01 11:07] VITALS: BP 140/70; PULSE 76; RESP 16; TEMP 36.5; O2SAT 97; BMI 26.0
--- NOTE | 2023-05-01 11:22 | ED.GENADULT ---
HPI - General Adult General Chief complaint: Wound/Laceration Stated complaint: laceration l middle finger at home Time Seen by Provider: 05/01/23 11:12 Source: patient Mode of arrival: ambulatory Limitations: no limitations History of Present Illness HPI narrative: Patient is a 67-year-old gkcdi-vqjv-dibiitca female presenting to the emergency department with laceration to left 3rd finger. Patient states that she was trimming a plant with hand-held clippers when she accidentally clipped her left 3rd finger. She reports laceration to the palmar aspect of distal tip of her 3rd finger with bleeding. She denies any numbness or tingling. She denies any decreased range of motion. She states that her tetanus is not up-to-date. MD complaint: Left finger laceration Onset (ago): minute(s) Location: left and upper extremity Radiation: non-radiation Severity: moderate Quality: burning Pain Consistency: constant Relieving factors: rest Exacerbating factors: movement Associated symptoms: denies other symptoms Treatments prior to arrival: other (Band-Aids) Related Data Home Medications Medication Instructions Recorded Confirmed albuterol sulfate 90 mcg/actuation 2 puff PO DAILY PRN Wheezing 08/14/20 04/21/23 aerosol inhaler propranolol 10 mg tablet 10 mg PO DAILY 08/14/20 04/21/23 simvastatin 20 mg tablet 20 mg PO BEDTIME 08/14/20 04/21/23 tramadol 50 mg tablet 50 mg PO BID PRN Moderate Pain 08/14/20 04/21/23 (Scale Score 5-6) calcium carbonate 500 mg-vitamin 1 tab PO DAILY 09/16/20 04/21/23 D3 3.125 mcg (125 unit) tablet kuootboslhym-vgmxibrm-hckrpf tablet 1 tab PO DAILY 09/16/20 04/21/23 omeprazole magnesium 20 mg 20 mg PO DAILY 09/16/20 04/21/23 tablet,delayed release (Prilosec OTC) polyethylene glycol 3350 17 gram 17 g PO DAILY 01/22/21 04/21/23 oral powder packet (Miralax) psyllium husk 0.4 gram capsule 0.4 g PO DAILY 01/22/21 04/21/23 (Metamucil) Allergies Allergy/AdvReac Type Severity Reaction Status Date / Time fentanyl [FENTANYL] Allergy Severe SEVERE Verified 04/21/23 09:54 VOMITING, severe headache, vomiting sulfamethoxazole Allergy Severe CANNOT Verified 04/21/23 09:54 [From BACTRIM] TAKE-ONLY HAS ONE KIDNEY trimethoprim [From BACTRIM] Allergy Severe CANNOT Verified 04/21/23 09:54 TAKE-ONLY HAS ONE KIDNEY azithromycin [AZITHROMYCIN] Allergy Intermediate DIARRHEA Verified 04/21/23 09:54 Review of Systems Review of Systems: As per HPI. 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 Migraines Osteoarthritis Prolapse of uterus Vaginal prolapse Ventral hernia Surgical History H/O kidney removal History of ankle surgery (~2003) History of breast biopsy (~05/11/14) History of breast surgery History of incisional hernia repair (~11/29/19) History of nephrectomy, left (~06/2018) History of removal of cyst (~1972) History of tonsillectomy and adenoidectomy Hx of tonsillectomy S/P removal of left ovary (~1978) Status post biopsy of kidney (~04/2018) Family History Family History Father Stomach cancer Prostate cancer High cholesterol Sister Stroke Mother High cholesterol CLL (chronic lymphocytic leukemia) Maternal Aunt Breast cancer Social History Social History Household Members: Spouse Housing: House Alcohol intake: current Alcohol intake frequency: holidays/special occasions only Patient Tobacco Use Status: Never used Tobacco Smoked in Last 30 Days: No Use of substances other than those prescribed or required for medical reasons: No Advance Directives: Yes Advance Directives on File: Yes Advance Directives Date on File: 07/25/20 service: No Current occupational status: 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 Blood pressure normal. Heart rate normal. Respiratory rate normal. Temperature normal. Oxygen saturation normal. Const General: cooperative, healthy appearing and no acute distress Orientation/consciousness: oriented to person, oriented to place, oriented to time and patient oriented x3 Limitations: no limitations HENNC Head: Yes normocephalic and Yes atraumatic Ears: external ears normal General nose exam: Normal external nose present Face and sinus: Yes face symmetric Mouth: oropharynx normal and moist mucous membranes Throat: Yes uvula midline Eyes Pupils: Equal, round and reactive pupils present Neck Neck: Yes normal visual inspection and Yes supple Resp Effort & Inspection: normal respiratory effort and able to speak in complete sentences Auscultation: clear to auscultation bilaterally Cardio Rate: regular rate Rhythm: regular rhythm Heart sounds: S1 normal heart sound present and S2 normal heart sound present GI Palpation (GI): Soft to palpation and nontender Auscultation: normoactive bowel sounds General: Yes no CVA tenderness Back/Spine/Pelvis Back: no CVA tenderness Skin General skin exam: elasticity normal and turgor normal Trauma: laceration left palmar 3rd finger linear and superficial Neuro General: oriented to person, oriented to place, oriented to time, patient oriented x3, moves all extremities, no focal motor deficits and CN's II-XI intact bilaterally Cranial nerves: Yes Equal, round and reactive pupils present Cognition (Neuro): normal cognition Extrem General: Yes full ROM, Yes no pedal edema and Yes no calf tenderness Left upper extremity: hand Details: neuromotor exam normal, neurosensory exam normal, normal ROM of fingers and laceration 3rd digit palmar aspect distal Details: linear and superficial Psych Mental Status: mental status grossly normal Affect: normal affect Thought process: Normal thought process present Medications Administered Discontinued Medications Generic Name Dose Route Start Last Admin Trade Name Freq PRN Reason Stop Dose Admin Diphtheria/Tetanus/Acell Pertussis 0.5 ml 05/01/23 11:31 05/01/23 11:48 Diphth,Pertus(Acell),Tet Adult 0.5 Ml Syringe IM 05/01/23 11:32 0.5 ml .ONCE ONE Administration Lidocaine HCl 5 ml 05/01/23 11:31 05/01/23 12:16 Lidocaine Hcl 1 % Mpf 5 Ml Vial INFILTRATI 05/01/23 11:32 5 ml ONCE ONE Administration Ondansetron HCl 4 mg 05/01/23 12:12 05/01/23 12:16 Ondansetron Odt 4 Mg Tab.Yareddis TRANSLINGU 05/01/23 12:13 4 mg ONCE ONE Administration Procedures Laceration Laceration 1: Site: hand Side (If applicable): left Size (cm): 1.5 Description: linear and clean Depth: simple, single layer Local Anesthetic: lidocaine 1% Amount of anesthesia used (mL): 1 Pre-repair: wound explored and irrigated extensively Skin layer closed with: other (prolene) Size (cm): 5-0 Number of sutures: 5 Technique: simple, interrupted Medical Decision Making Medical Decision Making MDM Narrative: Patient is a 67-year-old mhcxk-tmuy-oergqeha female presenting to the emergency department with laceration to left 3rd finger. On exam patient is awake, A+Ox3, VS WNL, afebrile, normal neurological exam without focal deficits, 1.5cm laceration to palmar aspect of distal tip of left 3rd finger with minor bleeding, full range of motion to all fingers of left hand, 5/5 strength, no sensory deficit. No concern for tendon or ligamentous injury. Tdap updated at today's visit. Laceration repaired as per procedure note. Patient tolerated well. Instructed patient to keep initial dressing on, clean, and dry for the 1st 24 hours, then change dressing daily and assess for signs of infection. Return precautions discussed at bedside. Patient to have sutures removed in 10-14 days. Instructed patient to follow-up with PCP. Patient verbalized understanding and agreement with plan. Differential Diagnosis Differential Diagnoses: The differential diagnosis associated with the presentation includes Left 3rd finger laceration External Record Review External record reviewed: Inpatient record, Office record and Outpatient record Prescription Management I considered prescription management with: Other (Tdap) Discharge Plan Discharge Clinical Impression: Laceration of finger of left hand Qualifiers: Encounter type: initial encounter Finger: middle finger Damage to nail status: without damage Foreign body presence: without foreign body Qualified Code(s): S61.213A - Laceration without foreign body of left middle finger without damage to nail, initial encounter Patient Disposition: Home, Self-Care Instructions: Laceration (DC), Finger Laceration (ED), Diphtheria/Acellular Pertussis/Tetanus Vaccine (By injection) Additional Instructions: You have been evaluated in the emergency department today for a laceration to your left 3rd finger. Your laceration was repaired in the emergency department with sutures. Please keep the area surrounding the laceration clean and dry and keep dressing in place for the next 24 hours. After that please change the dressing and assess the wound daily. Do not submerge your hand in water until laceration is fully healed (no dishwashing, swimming, baths, etc). Keep the area out of direct sunlight for the next 6 months to help prevent scarring. You should have the sutures removed in 10-14 days. If you develop fever, redness, swelling at the site of your laceration, or thick yellow drainage please come back to the ER for a wound check. Prescriptions: No Action Centrum Silver Tablet 1 tab PO DAILY omeprazole magnesium [Prilosec OTC] 20 mg Tablet,Delayed Release (Dr/Ec) 20 mg PO DAILY calcium carbonate-vitamin D3 [Calcium 500 + D (D3)] 500 mg(1,250mg) -125 unit Tablet 1 tab PO DAILY polyethylene glycol 3350 [Miralax] 17 gram powder in packet 17 g PO DAILY psyllium husk [Metamucil] 0.4 gram capsule 0.4 g PO DAILY tramadol 50 mg tablet 50 mg PO BID PRN (Reason: Moderate Pain (Scale Score 5-6)) simvastatin 20 mg tablet 20 mg PO BEDTIME propranolol 10 mg tablet 10 mg PO DAILY albuterol sulfate 90 mcg/actuation HFA aerosol inhaler 2 puff PO DAILY PRN (Reason: Wheezing)
[2023-05-01] MEDS: Diphth,Pertus(ACell),Tet Adult 0.5 ML SYRINGE IM (11:48)
[2023-05-01] MEDS: Lidocaine HCl 1 % MPF 5 ML VIAL INFILTRATI (12:16)
[2023-05-01] MEDS: Ondansetron ODT 4 MG TAB.RAPDIS TRANSLINGU (12:16)
[2023-05-01 12:47] VITALS: BP 148/74; PULSE 57; RESP 16; TEMP 37.2; O2SAT 95
== END 2023-05-01 12:50 | disposition home or self-care (01) ==
PROVIDERS: Emergency Provider Emergency Medicine; PCP Internal Medicine
DX: S61.213A Laceration without foreign body of left middle finger without damage to nail, initial encounter (principal); W27.8XXA Contact with other nonpowered hand tool, initial encounter; Y93.9 Activity, unspecified; Y92.9 Unspecified place or not applicable; Y99.9 Unspecified external cause status; Z23 Encounter for immunization
CPT/HCPCS: 12001; 90471; 90715; 99284

== ENCOUNTER 2023-05-06 10:38 | Outpatient (AMB) | payer MEDICARE, OTHER, SELFPAY ==
[2023-05-06 10:50] VITALS: BP 120/72; BMI 25.0
--- NOTE | 2023-05-06 10:50 | MHC.OFFVIS ---
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 Required: No Information Interpreted: non-clinical & clinical Gas Controller: Gas Controller Present (Elva) Allergies fentanyl [FENTANYL] Allergy (Severe, Verified 05/06/23 10:54) SEVERE VOMITING, severe headache, vomiting sulfamethoxazole [From BACTRIM] Allergy (Severe, Verified 05/06/23 10:54) CANNOT TAKE-ONLY HAS ONE KIDNEY trimethoprim [From BACTRIM] Allergy (Severe, Verified 05/06/23 10:54) CANNOT TAKE-ONLY HAS ONE KIDNEY azithromycin [AZITHROMYCIN] Allergy (Intermediate, Verified 05/06/23 10:54) DIARRHEA Is last menstrual period known: No Post menopausal: Yes HPI HPI Comments History of Present Illness Details Presenting for annual exam. No complaints. Last Pap/HPV was negative in 01/30 Last Mammogram was BI-RADS 2 in 10/01 TC life time breast cancer risk 37%, MRI of bilateral breast were negative, the patient is being followed up by Dr. 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 Migraines Osteoarthritis Prolapse of uterus Vaginal prolapse Ventral hernia Surgical History (Updated 05/06/23 @ 11:27 by Juan Valero MD) H/O kidney removal H/O vaginal hysterectomy History of ankle surgery (~2003) History of breast biopsy (~05/11/14) History of breast surgery History of incisional hernia repair (~11/29/19) History of nephrectomy, left (~06/2018) History of removal of cyst (~1972) History of tonsillectomy and adenoidectomy Hx of tonsillectomy S/P removal of left ovary (~1978) Status post biopsy of kidney (~04/2018) Family History Father Stomach cancer Prostate cancer High cholesterol Sister Stroke Mother High cholesterol CLL (chronic lymphocytic leukemia) Maternal Aunt Breast cancer Social History Household Members: Spouse Housing: House Alcohol intake: current Alcohol intake frequency: holidays/special occasions only Patient Tobacco Use Status: Never used Tobacco Advance Directives Date on File: 07/25/20 service: No Current occupational status: 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 Sexual orientation: Straight/Heterosexual Gender identity: Female Female Reproductive History Menstrual Age of Menarche: 10 control method: none Total pregnancies: 2 Full term: 2 Number of Living Children: 2 Date of last pap smear: 01/20/22 (negative) Date of Mammogram: 09/30/22 Review of Systems Const All systems reviewed & are unremarkable except as noted in HPI and below Card Reports as per HPI and Reports no additional complaints Resp Reports as per HPI and Reports no additional complaints GI Reports as per HPI and Reports no additional complaints Reports as per HPI Physical Exam Vital Signs: Last Vital Signs BP 120/72 05/06/23 10:50 BMI result Body Mass Index 25.0 Const General: cooperative, healthy appearing and comfortable General: Yes bladder normal to palpation External Female Exam: No lesion Speculum Exam - Vagina: normal appearance of the vagina, normal vaginal discharge and not erythematous Speculum Exam - Cervix: Cervix absent Bimanual exam- vagina & uterus: bladder normal to palpation and uterus absent Bimanual Exam- Adnexa, other: Other (No masses detected) Assessment & Plan Assessment & Plan (1) Well woman exam: Code(s): Z01.419 - Encounter for gynecological examination (general) (routine) without abnormal findings Plan: Co testing not indicated since the patient 's age is above 65 with no history of abnormal Pap smears last 25 years and status post hysterectomy. Counseled the patient about the recommended dietary allowance of 1200 mg of Calcium & 800 IU of vitamin D. Mammogram scheduled for 10/02 and the patient is up-to-date with her screening colonoscopy done. Will order DEXA scan . The patient was instructed to perform monthly self-breast exams and to schedule a 2 week DEXA scan follow-up appointment and an annual exam in a year; all questions answered and the patient verbalized understanding. (2) Menopause: Code(s): Z78.0 - Asymptomatic menopausal state Orders: Orders XR DEXA axial skeleton Today Z78.0 - Asymptomatic menopausal state Coding Level of Care Code Est Pt Prev Care >65y(23240) Diagnoses Well woman exam Z01.419 Menopause Z78.0
== END 2023-05-06 11:29 | disposition home or self-care (01) ==
LOC: HO.HWS 10:38
PROVIDERS: PCP Internal Medicine; Visit Provider Obstetrics & Gynecology
DX: Z01.419 Encounter for gynecological examination (general) (routine) without abnormal findings (principal); Z78.0 Asymptomatic menopausal state
CPT/HCPCS: 99397

== ENCOUNTER → 2023-05-06 10:38 | Outpatient (BNVA) | payer MEDICARE, OTHER, SELFPAY | PROVIDERS: PCP Internal Medicine; Visit Provider Obstetrics & Gynecology ==

== ENCOUNTER 2023-05-17 08:10 | Outpatient (REF) | payer MEDICARE, OTHER, SELFPAY ==
--- NOTE | ~2023-05-17 | CT_ITS ---
EXAMINATION: CT ABDOMEN AND PELVIS WITHOUT CONTRAST CLINICAL INFORMATION: Ventral hernia without gangrene or obstruction. COMPARISON: CT abdomen and pelvis 02/07/2021. TECHNIQUE: Multidetector volumetric imaging was performed from the superior aspect of the liver through the pubic symphysis. Oral contrast was administered. Sagittal and coronal reformatted images were obtained on the technologist's workstation. This CT examination was performed using dose optimization techniques as appropriate, variously including the following: *Automated exposure control *Adjustment of mA and/or kV according to patient size (this includes techniques or standardized protocols for targeted exams where dose is matched to indication/reason for exam; i.e. extremities or head) *Use of iterative reconstruction technique DLP: 419.00 mGy-cm FINDINGS: LUNG BASES: The visualized lung bases are unremarkable. LIVER, GALLBLADDER, AND BILIARY TREE: The liver is normal in size, shape, and attenuation. No focal hepatic lesion or biliary ductal dilatation is present. The gallbladder is unremarkable with no evidence of radiopaque gallstones, gallbladder wall thickening, or obvious pericholecystic inflammatory changes. PANCREAS: Unremarkable. SPLEEN: Unremarkable. ADRENAL GLANDS: Unremarkable. KIDNEYS AND URETERS: The left kidney is absent. The right kidney is unremarkable. BLADDER: Unremarkable. GASTROINTESTINAL TRACT: Small to moderate-sized hiatal hernia is present. The small and large bowel are unremarkable. The appendix is unremarkable. ABDOMINAL WALL: There is a tiny periumbilical hernia seen containing only fat with the mouth of about 0.4 cm. Immediately above this is an additional small ventral hernia seen containing only fat. At the time of the prior study, there was a left anterolateral abdominal/pelvic wall spigelian-type hernia seen which contained a loop of colon. This is barely apparent on the current study. Has this been repaired? Please correlate with any surgical history. LYMPH NODES: No retroperitoneal lymphadenopathy. VASCULAR: Unremarkable. PELVIC VISCERA: Patient has apparently undergone a hysterectomy since the prior study as the uterus is no longer seen. An abnormal adnexal mass or free fluid is not present. OSSEOUS STRUCTURES: Degenerative changes are present in the spine most marked at L2 through L4. No bony destructive lesions. CT/CT abdomen pelvis wo IV con IMPRESSION: 1. There are 2 small ventral hernias seen containing only fat. 2. Previously seen left-sided Spigelian hernia is barely apparent on the current study. 3. Other incidental findings as described above including hiatal hernia, left nephrectomy, hysterectomy and degenerative changes in the spine. Fleischner guidelines were followed.
[2023-05-17] MEDS: Barium Sulfate Oral (Vanilla) 450 ML ORAL.SUSP PO ×2 (10:32→10:38)
== END 2023-05-17 08:11 | disposition home or self-care (01) ==
LOC: HO.CT 08:10
PROVIDERS: PCP Internal Medicine; Visit Provider Surgery
DX: K43.9 Ventral hernia without obstruction or gangrene (principal)
CPT/HCPCS: 74176

== ENCOUNTER 2023-05-24 08:53 | Outpatient (AMB) | payer MEDICARE, OTHER, SELFPAY ==
--- NOTE | 2023-05-24 09:03 | A.OFFVIS_ITS ---
Intake Vital Signs 05/24/23 09:07 Height 5 ft 3 in Weight 140 lb BMI 24.8 BP 126/63 Blood Pressure Location Rt brachial Position Sitting Pulse 89 Intake Visit Reasons: ventral hernia, CT results Intake Note: This patient presents for a follow-up assessment for Ct-Scan results. Patient c/o; reports no changes or concerns at this time. Color Finisher Required: No Accompanied by: Self / Same As Patient Allergies fentanyl [FENTANYL] Allergy (Severe, Verified 05/24/23 09:08) SEVERE VOMITING, severe headache, vomiting sulfamethoxazole [From BACTRIM] Allergy (Severe, Verified 05/24/23 09:08) CANNOT TAKE-ONLY HAS ONE KIDNEY trimethoprim [From BACTRIM] Allergy (Severe, Verified 05/24/23 09:08) CANNOT TAKE-ONLY HAS ONE KIDNEY azithromycin [AZITHROMYCIN] Allergy (Intermediate, Verified 05/24/23 09:08) DIARRHEA Medication List - Last Reconciled 05/24/23 by Regino Pierce MD albuterol sulfate 90 mcg/actuation 2 puffs PO DAILY PRN calcium carbonate-vitamin D3 500 mg-3.125 mcg (125 unit) 1 tab PO DAILY ynfcjsiosito-vannketh-wzfswa 1 tab PO DAILY omeprazole magnesium (Prilosec OTC) 20 mg PO DAILY polyethylene glycol 3350 (Miralax) 17 grams PO DAILY propranolol 10 mg PO DAILY psyllium husk (Metamucil) 0.4 grams PO DAILY simvastatin 20 mg PO BEDTIME tramadol 50 mg PO BID PRN HPI ventral hernia, CT results HPI Details 67-year-old female here for follow-up for her incisional hernia. She says that she had repair of a prolapsed uterus and bladder last November 2022 in [facility] and had ended with complications of a ureteral injury requiring stenting, and a hematoma. She says she had to undergo 3 procedures in 2 days then. She says she feels her symptoms of urinary urgency have worsened since then. She also wants me to check on her hernia on the left lower abdomen. 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 She had repair of this hernia with Dr. Mock but this had recurred. ?She describes some discomfort with this. She says she is wanting this repaired. I had sent her for a CT scan to image this and she is here to discuss the findings. 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 Migraines Osteoarthritis Prolapse of uterus Vaginal prolapse Ventral hernia Surgical History H/O kidney removal H/O vaginal hysterectomy History of ankle surgery (~2003) History of breast biopsy (~05/11/14) History of breast surgery History of incisional hernia repair (~11/29/19) History of nephrectomy, left (~06/2018) History of removal of cyst (~1972) History of tonsillectomy and adenoidectomy Hx of tonsillectomy S/P removal of left ovary (~1978) Status post biopsy of kidney (~04/2018) Family History Father Stomach cancer Prostate cancer High cholesterol Sister Stroke Mother High cholesterol CLL (chronic lymphocytic leukemia) Maternal Aunt Breast cancer Social History Household Members: Spouse Housing: House Alcohol intake: current Alcohol intake frequency: holidays/special occasions only Patient Tobacco Use Status: Never used Tobacco Advance Directives Date on File: 07/25/20 service: No Current occupational status: 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 Sexual orientation: Straight/Heterosexual Gender identity: Female Female Reproductive History Menstrual Age of Menarche: 10 Review of Systems Const Denies chills and Denies fever(s) Card Denies chest pain, Denies dyspnea and Denies dyspnea on exertion Resp Denies cough, Denies dyspnea and Denies dyspnea on exertion GI Denies hematochezia and Denies change in bowel habits Denies hematuria Musc Denies back pain and Denies limited range of motion Neuro Denies focal weakness and Denies convulsions Psych Denies depression and Denies mood swings Physical Exam Vital Signs: Last Vital Signs Pulse 89 05/24/23 09:07 BP 126/63 05/24/23 09:07 BMI result Body Mass Index 24.8 Const General: comfortable and no acute distress Orientation/consciousness: patient oriented x3 Neck Neck: Yes no lymphadenopathy Resp Auscultation: clear to auscultation bilaterally Cardio Rhythm: regular rhythm GI Other: Palpable hernia on the left lower quadrant near the anterior superior iliac spine, about 4 cm in diameter, reducible; unable to palpate for the epigastric hernia Palpation (GI): Soft to palpation, nontender and no guarding Neuro General: patient oriented x3 Assessment & Plan Assessment & Plan (1) Incisional hernia: Code(s): K43.2 - Incisional hernia without obstruction or gangrene Plan: She has an incisional hernia on a previous nephrectomy site on the left lower quadrant. She wants this repaired. This is seen on old CT scan from 2020. This is not obvious on her CAT scan from last month. This hernia on the left lower quadrant is about 4 cm in widest dimension. I explained the technique of repair and we will do this laparoscopically and with a mesh although there is always a chance of converting to an open. I discussed the technique of this procedure. I reviewed the risks including but not limited to bleeding, infections, bowel injury, recurrence, postop pain, as well as the benefits and alternatives. Her CAT scan also shows a small supraumbilical hernia but this is nonpalpable. On the CT scan this is about 1.9 cm in diameter. This is fat containing. I review her old films with the radiologist and I will plan on repairing this as well at the same time. Coding Level of Care Code Est Pt Level 4 (22517) Diagnoses Incisional hernia K43.2
[2023-05-24 09:07] VITALS: BP 126/63; PULSE 89; BMI 24.8
== END 2023-05-24 09:24 | disposition home or self-care (01) ==
PROVIDERS: PCP Internal Medicine; Visit Provider Surgery
DX: K43.2 Incisional hernia without obstruction or gangrene (principal)
CPT/HCPCS: 99214

== ENCOUNTER → 2023-05-24 08:53 | Outpatient (BNVA) | payer MEDICARE, OTHER, SELFPAY | PROVIDERS: PCP Internal Medicine; Visit Provider Surgery | DX: K43.2 Incisional hernia without obstruction or gangrene (principal); Z85.528 Personal history of other malignant neoplasm of kidney; Z85.3 Personal history of malignant neoplasm of breast; Z90.721 Acquired absence of ovaries, unilateral; Z80.42 Family history of malignant neoplasm of prostate; Z90.5 Acquired absence of kidney | CPT/HCPCS: 99212 ==

== ENCOUNTER 2023-07-07 09:00 | Outpatient (RCR) | payer MEDICARE, OTHER, SELFPAY ==
--- NOTE | 2023-06-09 10:12 | MHC.PT.EP ---
[facility] [place] Office [place] Office [place] Office [address] Chanell Leija [address] [phone] F: [phone] F: [phone] F: [phone] F: [phone] Physical Therapy Plan of Care Date of Evaluation: Date of Surgery: NA Diagnosis: L SI joint dysfunction Assessment: Rebekah is a 67 year old female who is referred to PT for L SI joint dysfunction . She has been to PT 2 times last year for this and felt better however her symptoms returned back about 7 months back. Her symptoms seem to have returned after bladder repair surgery and hysterectomy in Oct 2022. On PT examination she presents with TTP over L SIJ, 7/10 pain over L SI with sleeping, standing, and prolonged sitting, decreased trunk ROM, decreased muscle strength, altered SI symmetry, altered posture and gait. She lives with her and is independent with all ADLS but modifies them due to pain. She would benefit from skilled PT to address the aforementioned impairments and improve tolerance to functional activities. Frequency and Duration: The patient will be seen 2/week for 5 weeks Short Term Goals: 1. Pt will have 50% decrease in pain which will enable her to sleep through the night in 2 weeks. 2. Pt will be able to move her trunk through all plane of motion without pain which will enable her to perform ADLS without modifications in 3 weeks. [facility] Goals: 1. Pt will demonstrate an increase in muscle strength by 1 grade which will enable to stand, walk and tolerate prolonged sitting without pain in 5 weeks. 2. Pt will be independent with [facility] for symptom management and maintenance following d.c in 5.weeks. Treatment Plan: Modalities to reduce pain, spasms and effusion. Manual therapy to restore motion and function. Therapeutic exercise to improve strength and flexibility. Neuromuscular re-education for posture and balance. Therapeutic activities to return to functional activities of daily living. Electronically signed by: Romina Young PT DPT Please sign and return to therapist. Thank you for your referral.
--- NOTE | 2023-07-09 15:14 | MHC.PT.DC ---
[facility] [place] Office [place] Office [place] Office [address] Chanell Leija [address] [phone] F: [phone] F: [phone] F: [phone] F: [phone] Physical Therapy Discharge Report Diagnosis: L SI joint dysfunction Date of Surgery: NA Date of Evaluation: 06/09/23 Date of Discharge: 07/09/23 Treatments to Date: 7 Cancellations to Date: 0 No Shows to Date: Discharge Status: Achieved Goals Improved Function Independent with HEP Discharge Summary: Rebekah arrived stating she is feeling good. She has completed 7 PT visits and has achieved all goals set for her. She is independent with her HEP as well. She is therefore being d/c from PT today. Rebekah was in agreement with the plan. I reviewed all HEP with her today. Electronically signed by: Romina Young, PT DPT Please sign and return to therapist. Thank you for your referral.
== END 2023-07-09 15:15 | disposition home or self-care (01) ==
LOC: HO.PT 09:00
PROVIDERS: PCP Internal Medicine; Visit Provider Internal Medicine
DX: M99.04 Segmental and somatic dysfunction of sacral region (principal)
CPT/HCPCS: 97110; 97112; 97140; 97161; 97530

== ENCOUNTER 2023-07-15 11:22 | Outpatient (AMB) | payer MEDICARE, OTHER, SELFPAY ==
--- NOTE | 2023-07-15 11:40 | MHC.OFFVIS ---
Intake Intake Visit Reasons: OV - Left Shoulder Bursitis - Injected 04/09/23 Intake Note: Rebekah is a 67 year old right hand dominant female who presents today for a follow up of her left shoulder pain. This pain has been present since about mid February of 2023 after moving furniture. At her last appointment on 04/09/23, she received an injection for left shoulder bursitis. She reports it did not help. Allergies fentanyl [FENTANYL] Allergy (Severe, Verified 07/15/23 11:41) SEVERE VOMITING, severe headache, vomiting sulfamethoxazole [From BACTRIM] Allergy (Severe, Verified 07/15/23 11:41) CANNOT TAKE-ONLY HAS ONE KIDNEY trimethoprim [From BACTRIM] Allergy (Severe, Verified 07/15/23 11:41) CANNOT TAKE-ONLY HAS ONE KIDNEY azithromycin [AZITHROMYCIN] Allergy (Intermediate, Verified 07/15/23 11:41) DIARRHEA Medication List - Last Reconciled 07/15/23 by Yue Polanco RN albuterol sulfate 90 mcg/actuation 2 puffs PO DAILY PRN calcium carbonate-vitamin D3 500 mg-3.125 mcg (125 unit) 1 tab PO DAILY hqrjwijwvjcy-bmojomri-rvjzft 1 tab PO DAILY omeprazole magnesium (Prilosec OTC) 20 mg PO DAILY polyethylene glycol 3350 (Miralax) 17 grams PO DAILY propranolol 10 mg PO DAILY psyllium husk (Metamucil) 0.4 grams PO DAILY simvastatin 20 mg PO BEDTIME tramadol 50 mg PO BID PRN HPI OV - Left Shoulder Bursitis - Injected 04/09/23 HPI Details Rebekah is a 67 year old woman who returns to discuss her left shoulder bursitis. She was last seen, and injected, on 04/09/23, with short-term relief. She continues to complain of pain with daily activity, worse with overhead activity and at night. She says her pain has been radiating into her neck now. She has been performing exercises at home and taking Gabapentin for pain relief. She has a hx of Kidney cancer, which has been removed, but she is scheduled for a hernia repair on 08/03/23. 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 Migraines Osteoarthritis Prolapse of uterus Vaginal prolapse Ventral hernia Surgical History H/O kidney removal H/O vaginal hysterectomy History of ankle surgery (~2003) History of breast biopsy (~05/11/14) History of breast surgery History of incisional hernia repair (~11/29/19) History of nephrectomy, left (~06/2018) History of removal of cyst (~1972) History of tonsillectomy and adenoidectomy Hx of tonsillectomy S/P removal of left ovary (~1978) Status post biopsy of kidney (~04/2018) Family History Father Stomach cancer Prostate cancer High cholesterol Sister Stroke Mother High cholesterol CLL (chronic lymphocytic leukemia) Maternal Aunt Breast cancer Social History Household Members: Spouse Housing: House Alcohol intake: current Alcohol intake frequency: holidays/special occasions only Patient Tobacco Use Status: Never used Tobacco Advance Directives Date on File: 07/25/20 service: No Current occupational status: 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 Sexual orientation: Straight/Heterosexual Gender identity: Female Female Reproductive History Menstrual Age of Menarche: 10 Review of Systems Const All systems reviewed & are unremarkable except as noted in HPI and below Physical Exam Const General: no acute distress, alert and awake Orientation/consciousness: patient oriented x3 HEENT Head: Yes normocephalic and Yes atraumatic Eyes EOM: EOMs intact bilaterally Resp Effort & Inspection: normal respiratory effort and able to speak in complete sentences Cardio Jugular venous distension: no JVD Skin General skin exam: turgor normal Rashes: no rashes Neuro General: patient oriented x3 Extrem Other: Left Shoulder: 90/130/45/L5 + H/N - empty can Psych Appearance: grossly normal Affect: normal affect Attitude: cooperative Assessment & Plan Assessment & Plan (1) Bursitis of left shoulder: Code(s): M75.52 - Bursitis of left shoulder Plan: This is a 67 year old woman with left shoulder bursitis. She has pain with daily activity, worse with overhead activity and at night. She found some relief from at-home exercises and her previous injection on 04/09/23 helped for a day or two. I discussed her diagnosis and treatment options. I ordered formal PT to begin when she recovers from her hernia repair surgery on 08/03/23, and she will perform at-home exercises prior to beginning PT. She can follow up prn. If her symptoms persist or worsen I would consider an MRI as the next step. Plan Scribed for Ric De Guzman MD by Solo Malin, medical writer, on 07/15/23 at 11:50 AM, EST. Coding Level of Care Code Est Pt Level 4 (99648) Diagnoses Bursitis of left shoulder M75.52
== END 2023-07-15 11:49 | disposition home or self-care (01) ==
PROVIDERS: PCP Internal Medicine; Visit Provider Orthopaedic Surgery
DX: M75.52 Bursitis of left shoulder (principal)
CPT/HCPCS: 99213

== ENCOUNTER → 2023-07-15 11:22 | Outpatient (BNVA) | payer MEDICARE, OTHER, SELFPAY | PROVIDERS: PCP Internal Medicine; Visit Provider Orthopaedic Surgery | DX: M75.52 Bursitis of left shoulder (principal) | CPT/HCPCS: 99212 ==

== ENCOUNTER 2023-08-02 10:00 | Outpatient (RCR) | payer MEDICARE, OTHER, SELFPAY | END 2023-09-30 14:08 | disposition home or self-care (01) | LOC: HO.PT 10:00 | PROVIDERS: PCP Internal Medicine; Visit Provider Physician Assistant Surgical | DX: N39.41 Urge incontinence (principal) | CPT/HCPCS: 97110; 97112; 97140; 97161 ==

== ENCOUNTER 2023-08-03 06:02 | Day surgery (SDC) | payer MEDICARE, OTHER, SELFPAY ==
[2023-07-29 10:53] VITALS: BMI 24.8
[2023-08-03] VITALS (9 sets, daily range): BP systolic 145–167; BP diastolic 63–76; PULSE 53–76; RESP 16–18; TEMP 36.6; O2SAT 95–100
[2023-08-03] MEDS: Lactated Ringers 1,000 ML 100 ML IVCONT (06:40)
[2023-08-03 06:44] LABS: Anion Gap 14 (12-20); Blood Urea Nitrogen 11 mg/dL (9-16); Calcium 9.7 mg/dL (8.4-10.2); Carbon Dioxide 24 mmol/L (22-29); Chloride 108 mmol/L (96-108); Creatinine Clr Calc Pharmacy 43.9; Estimated Glomerular Filt Rate 49; Glucose Fasting 85 mg/dL (60-99); Potassium 3.8 mmol/L (3.3-5.1); Sodium 142 mmol/L (135-145)
[2023-08-03 06:46] LABS: Hematocrit 42.2 % (37.0-47.0); Hemoglobin 13.5 g/dl (12.0-16.0); Mean Corpuscular Hemoglobin 29.2 pg (27.0-33.0); Mean Corpuscular Volume 91.1 fL (80.0-98.0); Mean Platelet Volume 9.3 fL (9.4-12.3); Platelet Count 396 X10*3/uL (160-400); Red Blood Count 4.63 X10*6/uL (4.20-5.50); Red Cell Distribution Width 12.5 % (11.0-16.0); White Blood Count 7.6 X10*3/uL (4.8-10.8)
--- NOTE | 2023-08-03 07:20 | HO.ANESPROP2 ---
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 (Acute) Early satiety (Acute) Unsatisfactory cervical Papanicolaou smear (Acute) Cervical myofascial pain syndrome (Acute) Cervical spondylosis (Acute) Lumbar spondylosis (Acute) Osteoarthritis (Acute) Unsatisfactory cervical Papanicolaou smear (Acute) Prolapse of uterus (Acute) Vaginal prolapse (Acute) Encounter for annual routine gynecological examination (Acute) Nontraumatic subluxation of extensor tendon at metacarpophalangeal joint of right hand (Acute) Nontraumatic subluxation of extensor tendon at metacarpophalangeal joint of left hand (Acute) Arthritis of carpometacarpal (CMC) joint of left thumb (Acute) Incisional hernia (Acute) Mass of soft tissue of hip (Acute) Cystocele with uterine prolapse (Acute) Breast CA (Chronic) Past Medical History Medical History Ventral hernia Family history of prostate cancer 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 Prolapse of uterus Vaginal prolapse Incisional hernia 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 History of kidney cancer Chronic kidney disease Migraines Osteoarthritis Fibromyalgia Hypercholesteremia Family History Family History Father Stomach cancer Prostate cancer High cholesterol Sister Stroke Mother High cholesterol CLL (chronic lymphocytic leukemia) Maternal Aunt Breast cancer Surgical History Surgical History H/O vaginal hysterectomy History of incisional hernia repair (~11/29/19) History of nephrectomy, left (~06/2018) Status post biopsy of kidney (~04/2018) History of breast biopsy (~05/11/14) History of tonsillectomy and adenoidectomy S/P removal of left ovary (~1978) History of removal of cyst (~1972) History of ankle surgery (~2003) H/O kidney removal History of breast surgery Hx of tonsillectomy Social History Social History Household Members: Spouse Housing: House Alcohol intake: current Alcohol intake frequency: holidays/special occasions only Patient Tobacco Use Status: Never used Tobacco Have you been hit, kicked, punched, or otherwise hurt by someone within the past year? 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 Sexual orientation: Straight/Heterosexual Gender identity: Female Meds Allergies Allergy/AdvReac Type Severity Reaction Status Date / Time fentanyl [FENTANYL] Allergy Severe SEVERE Verified 07/15/23 11:41 VOMITING, severe headache, vomiting sulfamethoxazole Allergy Severe CANNOT Verified 07/15/23 11:41 [From BACTRIM] TAKE-ONLY HAS ONE KIDNEY trimethoprim [From BACTRIM] Allergy Severe CANNOT Verified 07/15/23 11:41 TAKE-ONLY HAS ONE KIDNEY azithromycin [AZITHROMYCIN] Allergy Intermediate DIARRHEA Verified 07/15/23 11:41 Home Medications Medication Instructions Recorded Confirmed Last Taken Type albuterol sulfate 90 mcg/actuation 2 puff PO DAILY PRN Wheezing 08/14/20 07/29/23 Unknown History aerosol inhaler propranolol 10 mg tablet 10 mg PO DAILY 08/14/20 07/29/23 08/03/23 History simvastatin 20 mg tablet 20 mg PO BEDTIME 08/14/20 07/29/23 Unknown History tramadol 50 mg tablet 50 mg PO BID PRN Moderate Pain 08/14/20 07/29/23 Unknown History (Scale Score 5-6) calcium carbonate 500 mg-vitamin 1 tab PO DAILY 09/16/20 07/29/23 Unknown History D3 3.125 mcg (125 unit) tablet ylbkpqyansyg-bbqxvqpq-atgzyy tablet 1 tab PO DAILY 09/16/20 07/29/23 Unknown History omeprazole magnesium 20 mg 20 mg PO DAILY 09/16/20 07/29/23 08/03/23 History tablet,delayed release (Prilosec OTC) polyethylene glycol 3350 17 gram 17 g PO DAILY 01/22/21 07/29/23 Unknown History oral powder packet (Miralax) psyllium husk 0.4 gram capsule 0.4 g PO DAILY 01/22/21 07/29/23 Unknown History (Metamucil) Exam Exam Date and Time: August 02, 2023 0934 Height,Weight and Vital Signs: Height 5 ft 3 in Weight 63.503 kg Narrative Narrative: EKG 02/2023 SR @ 63 Ischemic changes noted NM carlos perf SPECT rest & str 02/2023 Impression: 1. Myocardial perfusion imaging study shows normal myocardial perfusion 2. Gated LVEF is 70% 3. 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 History of kidney cancer Chronic kidney disease Migraines Osteoarthritis Fibromyalgia Hypercholesteremia Family History Family History Father Stomach cancer Prostate cancer High cholesterol Sister Stroke Mother High cholesterol CLL (chronic lymphocytic leukemia) Maternal Aunt Breast cancer Family history of problems with anesthesia: No Surgical History Surgical History H/O vaginal hysterectomy History of incisional hernia repair (~11/29/19) History of nephrectomy, left (~06/2018) Status post biopsy of kidney (~04/2018) History of breast biopsy (~05/11/14) History of tonsillectomy and adenoidectomy S/P removal of left ovary (~1978) History of removal of cyst (~1972) History of ankle surgery (~2003) H/O kidney removal History of breast surgery Hx of tonsillectomy History of Problems with Anesthesia: No Social History Social History Household Members: Spouse Housing: House Alcohol intake: current Alcohol intake frequency: holidays/special occasions only Patient Tobacco Use Status: Never used Tobacco Have you been hit, kicked, punched, or otherwise hurt by someone within the past year? 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 Sexual orientation: Straight/Heterosexual Gender identity: Female Meds Allergies Allergy/AdvReac Type Severity Reaction Status Date / Time fentanyl [FENTANYL] Allergy Severe SEVERE Verified 07/15/23 11:41 VOMITING, severe headache, vomiting sulfamethoxazole Allergy Severe CANNOT Verified 07/15/23 11:41 [From BACTRIM] TAKE-ONLY HAS ONE KIDNEY trimethoprim [From BACTRIM] Allergy Severe CANNOT Verified 07/15/23 11:41 TAKE-ONLY HAS ONE KIDNEY azithromycin [AZITHROMYCIN] Allergy Intermediate DIARRHEA Verified 07/15/23 11:41 Home Medications Medication Instructions Recorded Confirmed Last Taken Type albuterol sulfate 90 mcg/actuation 2 puff PO DAILY PRN Wheezing 08/14/20 07/29/23 Unknown History aerosol inhaler propranolol 10 mg tablet 10 mg PO DAILY 08/14/20 07/29/23 08/03/23 History simvastatin 20 mg tablet 20 mg PO BEDTIME 08/14/20 07/29/23 Unknown History tramadol 50 mg tablet 50 mg PO BID PRN Moderate Pain 08/14/20 07/29/23 Unknown History (Scale Score 5-6) calcium carbonate 500 mg-vitamin 1 tab PO DAILY 09/16/20 07/29/23 Unknown History D3 3.125 mcg (125 unit) tablet bufnyyaxxdpi-hxuumkua-sgabsy tablet 1 tab PO DAILY 09/16/20 07/29/23 Unknown History omeprazole magnesium 20 mg 20 mg PO DAILY 09/16/20 07/29/23 08/03/23 History tablet,delayed release (Prilosec OTC) polyethylene glycol 3350 17 gram 17 g PO DAILY 01/22/21 07/29/23 Unknown History oral powder packet (Miralax) psyllium husk 0.4 gram capsule 0.4 g PO DAILY 01/22/21 07/29/23 Unknown History (Metamucil) Exam Exam Date and Time: August 03, 2023717 Height,Weight and Vital Signs: Height 5 ft 3 in Weight 63.503 kg Vital Signs Temperature 97.9 F 08/03/23 06:34 Pulse Rate 72 08/03/23 06:34 Respiratory Rate 18 08/03/23 06:34 Blood Pressure 150/76 H 08/03/23 06:34 Pulse Oximetry 100 08/03/23 06:34 Oxygen Delivery Method Room Air 08/03/23 06:34 Temperature 97.9 F 08/03/23 06:34 Pulse Rate 72 08/03/23 06:34 Respiratory Rate 18 08/03/23 06:34 Blood Pressure 150/76 H 08/03/23 06:34 Pulse Oximetry 100 08/03/23 06:34 Oxygen Delivery Method Room Air 08/03/23 06:34 Airway Mallampati Class: I TM Dist: >3cm Neck ROM: Full Loose/Missing/Broken Teeth: No Heart: S1S2 Lungs: CTAB Assessment and Plan Assessment Anesthesia Assessment: Anesthesia Plan Discussed and Chart Reviewed Final Anesthetic Review Family History of Problems with Anesthesia: No History of Problems with Anesthesia: No NPO: Yes ASA Class: II Final Preanesthetic Review: No Changes in Pt Med Stat, Meds/Allgs Chart Reviewed, Consent Obtained/Reviewed and Anes Risks/Benef Reviewed Patient Risk: Low Procedure Risk: Low Anesthetic Plan Anesthetic Plan: GA and Agree w/ Assess. and Plan Disposition: Standard PACU
--- NOTE | 2023-08-03 07:32 | P.HPSUR_ITS ---
Pre-Procedural Eval Section A Date of Service: 08/03/23 Section B Chief Complaint: Incisional hernia without obstruction or gangrene Details of Present Illness: has had recurrent hernia on LLQ from previous nephrectomy Relevant Social History: None Present Medications: see Short Stay Collaborative assessment Medical History: Significant History (HX of LCIS, OA, myofascial pain syndrome) Allergies: Allergies Allergy/AdvReac Type Severity Reaction Status Date / Time fentanyl [FENTANYL] Allergy Severe SEVERE Verified 07/15/23 11:41 VOMITING, severe headache, vomiting sulfamethoxazole Allergy Severe CANNOT Verified 07/15/23 11:41 [From BACTRIM] TAKE-ONLY HAS ONE KIDNEY trimethoprim [From BACTRIM] Allergy Severe CANNOT Verified 07/15/23 11:41 TAKE-ONLY HAS ONE KIDNEY azithromycin [AZITHROMYCIN] Allergy Intermediate DIARRHEA Verified 07/15/23 11:41 Review of Systems Sugical H&P ROS: Negative: Constitution, Cardiovascular, Respiratory, Neurological, Psychiatric, Hem-Onc, Allergic/Immunologic, Gastrointestinal, G enitourinary, Musculoskeletal, Integumentary, Endocrine and Eyes/Ears/Nose/Throat Exam Surgical H&P Exam: Normal: HEENT, Normal: Heart, Normal: Lungs, Normal: Extremities, Normal: Skin and Normal: Neurological and Significant Findings: Abdomen (LLQ hernia) Plan Diagnosis/Plan: Unchanged I have reviewed the history and physical and performed a pertinent physical examination on my patient. No changes have occurred unless specified. Time Spent With Patient Time: Total time managing care of this patient today ____ minutes.
--- NOTE | 2023-08-03 09:20 | P.OP_ITS ---
Operative Note Operative Note Date of Service: 08/03/23 Narrative: Preop diagnosis: Recurrent incisional hernia, left lower quadrant Postop diagnosis: The same Procedure: Laparoscopic repair of a recurrent incisional hernia on the left lower quadrant using Echo mesh with extensive lysis of adhesions Surgeon: Regino Pierce MD commercial lending assistant: KEANU Hoffmann The patient is a 67 year old female with note of recurrent hernia on the left lower quadrant. She had a previous laparoscopic assisted left nephrectomy and had a repair of a hernia on this area using a Ventralex mesh with Dr. Mock in 2019. However, this had recurred. I have reviewed her CAT scan. This showed hernia with note of a sigmoid loop within the defect. She understood the technique of the planned procedure As well as the risks, benefits, and alternatives. She was brought to the operating room. She was placed supine under general anesthesia via a tube. The abdomen was prepped and draped in the usual sterile fashion. The had been tucked on the right side. A surgical time-out was done. The patient received cefazolin 2 g IV preoperatively I made my incision for the initial port site on the epigastric area using blade 15. This carried down through the full-thickness of the skin subcutaneous fat down to the fascia. The fascia was incised. The peritoneum was entered. Through this incision a Damián port was introduced. Pneumoperitoneum was introduced to a pressure of 15 mm hg. From here on, the rest of the procedure was done under vision with the laparoscope. With laparoscopic visualization using a 30 degree 10 mm scope, I proceeded to insert two 5 mm ports on the right Side of the abdomen. the patient was placed any side down and head-down position. Graspers were placed through these working ports. Laparoscopic examination showed a loop of sigmoid that was actually adherent to the fascial edges of the hernia defect on the left lower quadrant. I had to do careful and extensive lysis of adhesions using the [place] LigaSure as well as laparoscopic scissors. We a long time with this until were able to completely separate the loop of avoid from the fascial edges and reduced this completely. I examined the loop of sigmoid there was no bowel injury seen. I measured the fascial defect. This was about 5 cm in diameter I then proceeded to insert a 10 x 15 echo mesh through the epigastric port into the peritoneum. We reinserted the port with laparoscopic visualization, I unrolled the mesh with the both side and the balloon side facing the bowel. I pulled up the mesh using a suture passer through the defect. We inflated the balloon. The position this to cover the entire defect with adequate overlap. I then used the absorbable tackers to secure this mesh circumferentially. We avoided the femoral vessels when applying that tacks. as this was adjacent to the defect. We made sure that we were not on the bladder as well. We then desufflated the balloon and pulled this out through the plastic port . I examined the repair. This appeared to be well secured and with good overlap. I examined all 4 quadrants. There was no evidence of any bowel injury or any other pathology. There was no obvious hernia in the umbilicus I then desufflated and will all ports. There was note of good hemostasis in the peritoneum prior to removal of the ports I closed the fascia of the epigastric port site with a [id number] Polysorb 0 stitch. Skin closure was achieved on all incisions with the 4-0 subcuticular running sutures. All incisions were infiltrated with Marcaine 0.5% for postop THERESA. Dressings were applied. The procedure was completed. The patient tolerated the procedure well. There were no immediate complications. Initial andfinal counts of sponges and instruments were correct. Estimated blood loss was less than 10 cc. The patient was extubated without difficulty in the operating room and transferred to the recovery room with stable vital signs. The Suarez catheter catheter was removed. Urine output was clear throughout.
[2023-08-03] MEDS: oxyCODONE HCl Immed Release 5 MG TABLET 10 MG PO (10:40)
== END 2023-08-03 11:44 | disposition home or self-care (01) ==
PROVIDERS: Nurse Practitioner; PCP Internal Medicine; Visit Provider Surgery
PROC: (CPT 49650; principal; 2023-08-03 07:30)
DX: K43.2 Incisional hernia without obstruction or gangrene (principal); K66.0 Peritoneal adhesions (postprocedural) (postinfection); N18.9 Chronic kidney disease, unspecified; Z85.528 Personal history of other malignant neoplasm of kidney; Z90.5 Acquired absence of kidney; Z98.890 Other specified postprocedural states; Z79.899 Other long term (current) drug therapy; Z88.1 Allergy status to other antibiotic agents; Z88.2 Allergy status to sulfonamides; Z88.5 Allergy status to narcotic agent
CPT/HCPCS: 49615; 49329; 36415; 80048; 85027; C1713; C1727; C1781; J0131; J0690; J1170; J2250; J2795

== ENCOUNTER → 2023-08-03 06:02 | Outpatient (BNV) | payer MEDICARE, OTHER, SELFPAY | PROVIDERS: PCP Internal Medicine; Visit Provider Surgery | DX: K43.2 Incisional hernia without obstruction or gangrene (principal) | CPT/HCPCS: 49616 ==

== ENCOUNTER 2023-08-12 08:54 | Outpatient (AMB) | payer MEDICARE, OTHER, SELFPAY ==
--- NOTE | 2023-08-12 08:55 | A.OFFVIS_ITS ---
Intake Vital Signs 08/12/23 09:01 Weight 142 lb BP 145/66 H Blood Pressure Location Rt brachial Position Sitting Pulse 108 H Intake Visit Reasons: S/P Lt lower quad. incisional Intake Note: This patient presents for a post-op assessment status post Laparoscopic repair of a recurrent incisional hernia on the left lower quadrant using Echo mesh with extensive lysis of adhesions. Patient c/o ; reports occasional sharp abdominal pain, reports changes in bowel habits, reports taking several stool softener and laxatives and not effective. Raw Sampler Required: No Accompanied by: Self / Same As Patient Allergies fentanyl [FENTANYL] Allergy (Severe, Verified 08/12/23 09:00) SEVERE VOMITING, severe headache, vomiting sulfamethoxazole [From BACTRIM] Allergy (Severe, Verified 08/12/23 09:00) CANNOT TAKE-ONLY HAS ONE KIDNEY trimethoprim [From BACTRIM] Allergy (Severe, Verified 08/12/23 09:00) CANNOT TAKE-ONLY HAS ONE KIDNEY azithromycin [AZITHROMYCIN] Allergy (Intermediate, Verified 08/12/23 09:00) DIARRHEA Medication List - Last Reconciled 08/12/23 by Regino Pierce MD albuterol sulfate 90 mcg/actuation 2 puffs PO DAILY PRN calcium carbonate-vitamin D3 500 mg-3.125 mcg (125 unit) 1 tab PO DAILY sjscgcolfmow-[id number]-ozysnn 1 tab PO DAILY omeprazole magnesium (Prilosec OTC) 20 mg PO DAILY oxycodone-acetaminophen 5-325 mg (Percocet) 1 tab PO Q4-6H PRN polyethylene glycol 3350 (Miralax) 17 grams PO DAILY propranolol 10 mg PO DAILY psyllium husk (Metamucil) 0.4 grams PO DAILY simvastatin 20 mg PO BEDTIME tramadol 50 mg PO BID PRN HPI S/P Lt lower quad. incisional HPI Details She underwent laparoscopic repair of a recurrent incisional hernia left lower quadrant with Echo mesh last 08/03/2023. She is here for a postop visit . She says she is doing well. She has minimal pain. She is ambulating without difficulty. She does complain of some constipation. 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 History of kidney cancer Chronic kidney disease Migraines Osteoarthritis Fibromyalgia Hypercholesteremia Surgical History (Updated 08/10/23 @ 08:27 by JOY Dailey) Hx of surgical procedure (~08/03/23) H/O vaginal hysterectomy History of incisional hernia repair (~11/29/19) History of nephrectomy, left (~06/2018) Status post biopsy of kidney (~04/2018) History of breast biopsy (~05/11/14) History of tonsillectomy and adenoidectomy S/P removal of left ovary (~1978) History of removal of cyst (~1972) History of ankle surgery (~2003) H/O kidney removal History of breast surgery Hx of tonsillectomy Family History Father Stomach cancer Prostate cancer High cholesterol Sister Stroke Mother High cholesterol CLL (chronic lymphocytic leukemia) Maternal Aunt Breast cancer Social History Household Members: Spouse Housing: House Alcohol intake: current Alcohol intake frequency: holidays/special occasions only Patient Tobacco Use Status: Never used Tobacco Advance Directives Date on File: 07/25/20 service: No Current occupational status: 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 Sexual orientation: Straight/Heterosexual Gender identity: Female Female Reproductive History Menstrual Age of Menarche: 10 Physical Exam Vital Signs: Last Vital Signs Pulse 108 H 08/12/23 09:01 BP 145/66 H 08/12/23 09:01 Const General: comfortable and no acute distress Resp Effort & Inspection: normal respiratory effort GI Other: All incisions are well healed, repair site on the left lower quadrant is intact Palpation (GI): Soft to palpation, not firm and no guarding Assessment & Plan Assessment & Plan (1) Incisional hernia: Code(s): K43.2 - Incisional hernia without obstruction or gangrene Plan: Status post laparoscopic repair with Echo mesh. She is doing well postoperatively. All incisions are well healed. The repair site is intact I advised her to avoid lifting more than 20 lb for at least month. She is encouraged to ambulate . I also told her she can increase her Colace and Metamucil to twice a day for constipation She says she is scheduled to see me in October for her history of breast cancer. Plan es. Coding Level of Care Code Global (87857) Diagnoses Incisional hernia K43.2
[2023-08-12 09:01] VITALS: BP 145/66; PULSE 108
== END 2023-08-12 09:10 | disposition home or self-care (01) ==
PROVIDERS: PCP Internal Medicine; Visit Provider Surgery
DX: K43.2 Incisional hernia without obstruction or gangrene (principal); Z09 Encounter for follow-up examination after completed treatment for conditions other than malignant neoplasm
CPT/HCPCS: 99212

== ENCOUNTER → 2023-08-12 08:54 | Outpatient (BNVA) | payer MEDICARE, OTHER, SELFPAY | PROVIDERS: PCP Internal Medicine; Visit Provider Surgery | DX: K43.2 Incisional hernia without obstruction or gangrene (principal) | CPT/HCPCS: 99212 ==

== ENCOUNTER 2023-08-26 10:46 | Outpatient (REF) | payer MEDICARE, OTHER, SELFPAY ==
[2023-08-26 11:02] LABS: IDNOW Serial# 08D9AD1C; Strep A Nucleic Acid Negative (Negative)
== END 2023-08-26 10:47 | disposition home or self-care (01) ==
LOC: HO.LNP 10:46
PROVIDERS: Visit Provider Internal Medicine
DX: J02.9 Acute pharyngitis, unspecified (principal)
CPT/HCPCS: 87651

== ENCOUNTER 2023-08-31 10:29 | Outpatient (REF) | payer MEDICARE, OTHER, SELFPAY ==
[2023-08-31 11:48] LABS: Influenza A PCR NEGATIVE (Negative); Influenza B PCR NEGATIVE (Negative); Resp Syncy Virus RNA Qual PCR NEGATIVE (Negative); SARS COV2 PCR INHOUSE NEGATIVE (Negative)
== END 2023-08-31 10:30 | disposition home or self-care (01) ==
LOC: HO.LNP 10:29
PROVIDERS: Visit Provider Internal Medicine
DX: Z11.52 Encounter for screening for COVID-19 (principal); R05.9 Cough, unspecified; Z20.822 Contact with and (suspected) exposure to COVID-19; J02.9 Acute pharyngitis, unspecified
CPT/HCPCS: 0241U

== ENCOUNTER 2023-09-07 09:03 | Outpatient (REF) | payer MEDICARE, OTHER, SELFPAY ==
--- NOTE | ~2023-09-07 | XR_ITS ---
EXAMINATION: XR CHEST CLINICAL INFORMATION: Cough COMPARISON: Chest radiographs May 23, 2020 TECHNIQUE: 2 views of the chest were obtained. FINDINGS: There is no gross pneumothorax. Heart size is normal. Degenerative changes in the thoracic spine. Pleural effusion. No focal consolidation to suggest pneumonia. XR/XR chest 2V IMPRESSION: No evidence of pneumonia
== END 2023-09-07 09:04 | disposition home or self-care (01) ==
LOC: HO.XRAY 09:03
PROVIDERS: PCP Internal Medicine; Visit Provider Internal Medicine
DX: R05.9 Cough, unspecified (principal)
CPT/HCPCS: 71046

== ENCOUNTER 2023-09-13 08:50 | Outpatient (REF) | payer MEDICARE, OTHER, SELFPAY ==
[2023-09-13 10:43] LABS: Anion Gap 12 (12-20); Blood Urea Nitrogen 13 mg/dL (9-16); Calcium 9.8 mg/dL (8.4-10.2); Carbon Dioxide 25 mmol/L (22-29); Chloride 108 mmol/L (96-108); Estimated Glomerular Filt Rate 44; Glucose Random 119 mg/dL (60-115); Potassium 3.7 mmol/L (3.3-5.1); Sodium 141 mmol/L (135-145)
== END 2023-09-13 08:51 | disposition home or self-care (01) ==
LOC: HO.10HDL 08:50
PROVIDERS: Visit Provider Internal Medicine Hypertension Specialist
DX: N18.30 Chronic kidney disease, stage 3 unspecified (principal)
CPT/HCPCS: 36415; 80048

== ENCOUNTER 2023-09-16 10:41 | Outpatient (AMB) | payer MEDICARE, OTHER, SELFPAY ==
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
[2023-09-16 10:47] VITALS: BP 114/72; PULSE 79; O2SAT 99; BMI 24.6
== END 2023-09-16 11:18 | disposition home or self-care (01) ==
PROVIDERS: PCP Internal Medicine; Visit Provider Internal Medicine Hypertension Specialist
DX: N18.9 Chronic kidney disease, unspecified (principal); Z90.5 Acquired absence of kidney
CPT/HCPCS: 99214

== ENCOUNTER → 2023-09-16 10:41 | Outpatient (BNVA) | payer MEDICARE, OTHER, SELFPAY | PROVIDERS: PCP Internal Medicine; Visit Provider Internal Medicine Hypertension Specialist | DX: N18.9 Chronic kidney disease, unspecified (principal); Z90.5 Acquired absence of kidney | CPT/HCPCS: 99212 ==

== ENCOUNTER 2023-11-18 09:01 | Outpatient (REF) | payer MEDICARE, OTHER, SELFPAY ==
--- NOTE | ~2023-11-18 | MM_ITS ---
EXAMINATION: BONE DENSITOMETRY CLINICAL INDICATION: Asymptomatic menopausal state. COMPARISON: Previous BD dated 02/27/2016 and baseline BD dated 10/09/2010. TECHNIQUE: Using a [employer] DXA System (software version: 13.1) manufactured by [employer], dual-energy x-ray absorptiometry was performed of the lumbar spine and left hip. The images are of good technical quality. Summary results are attached. FINDINGS: AP SPINE L1-L4: Current: BMD 0.912 g/cm2, Z-score -0.5, T-score -2.2, osteopenia, 11.0% decrease from previous, 8.2% decrease from baseline (<5% change is not significant). Prior: BMD 1.025 g/cm2. Baseline: BMD 0.993 g/cm2. LEFT FEMUR, NECK: Current: BMD 0.710 g/cm2, Z-score -0.7, T-score -2.4, osteopenia. Prior: BMD 0.795 g/cm2. Baseline: BMD 0.793 g/cm2. LEFT FEMUR, TOTAL: Current: BMD 0.710 g/cm2, Z-score -0.9, T-score -2.4, osteopenia, 9.1% decrease from previous, 11.4% decrease from baseline (<5% change is not significant). Prior: BMD 0.781 g/cm2. Baseline: BMD 0.801 g/cm2. IDENTIFIED RISK FACTORS: Kidney disease. Height loss. Parental hip fracture. Menopause. Hysterectomy. Left oophorectomy. HISTORY OF FRACTURE: Other (ankle). MEDICATIONS: Calcium supplement or multivitamin. Vitamin D. MM/XR DEXA axial skeleton IMPRESSION: 1. DIAGNOSIS: Osteopenia based on the lowest T-score value of -2.4 in the femoral neck and total femur applying World Health Organization criteria. 2. 10-YEAR FRACTURE RISK PREDICTION, FRAX: Major osteoporotic fracture (clinical spine, forearm, hip or shoulder) 33.9%. Hip fracture 8.9%. 3. Treatment Recommendations: NOF guidelines recommend consideration for treatment in postmenopausal women and men age 50 and older presenting with the following: -A hip or vertebral (clinical or morphometric) fracture. -T-score less than or equal to -2.5 at the femoral neck or spine after appropriate evaluation to exclude secondary causes. -Low bone mass at the hip or spine and a 10-year fracture probability by FRAX of greater than or equal to 3% for hip fracture or greater than or equal to 20% for major osteoporotic fracture based on the [place] adapted WHO algorithm. 4. Other Recommendations: All treatment decisions require clinical judgment and consideration of individual patient factors, including patient preferences, comorbidities, previous drug use, risk factors not captured in the FRAX model (e.g. frailty, falls, vitamin D deficiency, increased bone turnover, interval significant decline in bone density) and possible under or overestimation of fracture risk by FRAX. Additional medical evaluation for secondary cause of low bone mineral density may be appropriate. FUTURE SCAN RECOMMENDATION: People with diagnosed cases of osteoporosis or at high risk for fracture should have regular bone mineral density tests. For patients eligible for Medicare, routine testing is allowed once every 2 years. The testing frequency can be increased to one year for patients who have rapidly progressing disease, those who are receiving or discontinuing medical therapy to restore bone mass, or have additional risk factors.
--- NOTE | ~2023-11-18 | MM_ITS ---
EXAMINATION: MM SCREENING DIGITAL BREAST TOMOSYNTHESIS, BILATERAL CLINICAL INFORMATION: Screening. Asymptomatic. The patient is status post prior surgery in 2014 for lobular carcinoma in situ of the left breast. COMPARISON: Mammography: This study is compared with prior exams dating back to 2019. TECHNIQUE: Digital breast tomosynthesis is performed in both the craniocaudal and mediolateral oblique views along with computer-aided detection (CAD). Synthesized 2D images are generated from the tomosynthesis. FINDINGS: The breasts are heterogeneously dense, which may obscure small masses (ACR BI-RADS breast composition Category c). There are no significant masses, abnormal calcifications, or other abnormalities. There is minor architectural change in the upper outer quadrant of the left breast from prior surgery. Few, coarse benign calcifications are present in each breast. MM/MM tomosynthesis screening BI IMPRESSION: No mammographic evidence of malignancy. ASSESSMENT: BI-RADS BI-RADS 2 - Benign Findings RECOMMENDATION: Routine annual mammography screening. 1 year F/U This examination should not preclude the clinical evaluation of a suspicious palpable abnormality. This patient's information was entered into a reminder system with a target due date for their next mammogram.
== END 2023-11-18 09:02 | disposition home or self-care (01) ==
LOC: HO.MAMMO 09:01
PROVIDERS: PCP Internal Medicine; Visit Provider Obstetrics & Gynecology
DX: Z12.31 Encounter for screening mammogram for malignant neoplasm of breast (principal); Z13.820 Encounter for screening for osteoporosis; Z78.0 Asymptomatic menopausal state
CPT/HCPCS: 77063; 77067; 77080

== ENCOUNTER → 2023-11-18 09:30 | Outpatient (BNV) | payer MEDICARE, OTHER, SELFPAY | PROVIDERS: PCP Internal Medicine; Visit Provider Radiology Diagnostic Radiology | DX: Z12.31 Encounter for screening mammogram for malignant neoplasm of breast (principal) | CPT/HCPCS: 77063; 77067 ==

== ENCOUNTER 2023-11-22 13:21 | Outpatient (AMB) | payer MEDICARE, OTHER, SELFPAY ==
[2023-11-22 13:29] VITALS: BP 122/70; BMI 24.4
--- NOTE | 2023-11-22 13:29 | MHC.OFFVIS ---
Intake Vital Signs 11/22/23 13:29 Height 5 ft 3 in Weight 138 lb BMI 24.4 BP 122/70 Intake Visit Reasons: Dexa Results Information Interpreted: clinical only Allergies fentanyl [FENTANYL] Allergy (Severe, Verified 11/22/23 13:31) SEVERE VOMITING, severe headache, vomiting sulfamethoxazole [From BACTRIM] Allergy (Severe, Verified 11/22/23 13:31) CANNOT TAKE-ONLY HAS ONE KIDNEY trimethoprim [From BACTRIM] Allergy (Severe, Verified 11/22/23 13:31) CANNOT TAKE-ONLY HAS ONE KIDNEY azithromycin [AZITHROMYCIN] Allergy (Intermediate, Verified 11/22/23 13:31) DIARRHEA Is last menstrual period known: No Post menopausal: Yes Do you need a note to return to daycare/school/sports/work: No HPI HPI Comments History of Present Illness Details The patient is presenting for follow up regarding DEXA scan results. T score @ spine and femoral Neck respectively were=-2.2 /-2.4 and 10 year FRAX risk = 33.9/8.9 % for severe osteoporosis and fracture. 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 History of kidney cancer Chronic kidney disease Migraines Osteoarthritis Fibromyalgia Hypercholesteremia Surgical History H/O hysterectomy for benign disease Hx of surgical procedure (~08/03/23) H/O vaginal hysterectomy History of incisional hernia repair (~11/29/19) History of nephrectomy, left (~06/2018) Status post biopsy of kidney (~04/2018) History of breast biopsy (~05/11/14) History of tonsillectomy and adenoidectomy S/P removal of left ovary (~1978) History of removal of cyst (~1972) History of ankle surgery (~2003) H/O kidney removal History of breast surgery Hx of tonsillectomy Family History Father Stomach cancer Prostate cancer High cholesterol Sister Stroke Mother High cholesterol CLL (chronic lymphocytic leukemia) Maternal Aunt Breast cancer Social History Household Members: Spouse Housing: House Alcohol intake: current Alcohol intake frequency: holidays/special occasions only Patient Tobacco Use Status: Never used Tobacco Advance Directives Date on File: 07/25/20 service: No Current occupational status: 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 Sexual orientation: Straight/Heterosexual Gender identity: Female Female Reproductive History Menstrual Age of Menarche: 10 Total pregnancies: 2 Full term: 2 Date of last pap smear: 01/22/22 (negative) History of abnormal pap smear: Yes (per patient 2009 [email or web address]) Review of Systems Const All systems reviewed & are unremarkable except as noted in HPI and below Reports as per HPI and Reports no additional complaints GI Reports no additional complaints Reports no additional complaints Physical Exam Vital Signs: Last Vital Signs BP 122/70 11/22/23 13:29 BMI result Body Mass Index 24.4 Assessment & Plan Assessment & Plan (1) At high risk for fracture: Code(s): Z91.89 - Other specified personal risk factors, not elsewhere classified Plan: Discussed with the patient the DEXA results and FRAX risk. Discussed with the patient all the options for therapeutic treatment including mechanism of actions, risks and benefits of Bisphosphonates (benefits=osteoporosis prevention; Risks=GERD, osteonecrosis of jaw), Raloxifene, (benefits=osteoporosis prevention and breast ca risk reduction; Risks=DVT), Forteo. The patient decided to go ahead with Fosamax so instructions given to the pt on how to take the med: NPO x 30 minutes, large amount of water , stay upright x 30 minutes, inform her dentist of alendronate intake in case invasive dental work. Also Caltrate+D 600 mg x2/day was recommended to the patient. Medications: New alendronate 70 mg PO QWEEK 14 tabs 3RF Coding Level of Care Code Est Pt Level 3 (42952) Diagnoses At high risk for fracture Z91.89
== END 2023-11-22 14:29 | disposition home or self-care (01) ==
LOC: HO.HWS 13:21
PROVIDERS: PCP Internal Medicine; Visit Provider Obstetrics & Gynecology
DX: Z91.89 Other specified personal risk factors, not elsewhere classified (principal)
CPT/HCPCS: 99213

== ENCOUNTER → 2023-11-22 13:21 | Outpatient (BNVA) | payer MEDICARE, OTHER, SELFPAY | PROVIDERS: PCP Internal Medicine; Visit Provider Obstetrics & Gynecology | DX: Z91.89 Other specified personal risk factors, not elsewhere classified (principal) | CPT/HCPCS: 99212 ==

== ENCOUNTER 2023-12-02 09:23 | Outpatient (AMB) | payer MEDICARE, OTHER, SELFPAY ==
--- NOTE | 2023-12-02 09:26 | MHC.OFFVIS ---
Intake Vital Signs 12/02/23 09:31 Height 5 ft 3 in Weight 139 lb BMI 24.6 BP 128/62 Blood Pressure Location Rt brachial Position Sitting Pulse 78 Intake Visit Reasons: 6m breast exam Intake Note: This patient presents for a six month breast examination assessment. Patient c/o; reports no breast complaints at this time, reports Hx of hernia repair; c/o abdominal pain. Ferris Wheel Attendant Required: No Accompanied by: Self / Same As Patient Allergies fentanyl [FENTANYL] Allergy (Severe, Verified 12/02/23 09:32) SEVERE VOMITING, severe headache, vomiting sulfamethoxazole [From BACTRIM] Allergy (Severe, Verified 12/02/23 09:32) CANNOT TAKE-ONLY HAS ONE KIDNEY trimethoprim [From BACTRIM] Allergy (Severe, Verified 12/02/23 09:32) CANNOT TAKE-ONLY HAS ONE KIDNEY azithromycin [AZITHROMYCIN] Allergy (Intermediate, Verified 12/02/23 09:32) DIARRHEA Medication List - Last Reconciled 12/02/23 by Regino Pierce MD albuterol sulfate 90 mcg/actuation 2 puffs PO DAILY PRN alendronate 70 mg PO QWEEK calcium carbonate-vitamin D3 500 mg-3.125 mcg (125 unit) 1 tab PO DAILY jfzupcwvnkmm-xjafvprn-tphrnb 1 tab PO DAILY omeprazole magnesium (Prilosec OTC) 20 mg PO DAILY polyethylene glycol 3350 (Miralax) 17 grams PO DAILY propranolol 10 mg PO DAILY psyllium husk (Metamucil) 0.4 grams PO DAILY simvastatin 20 mg PO BEDTIME tramadol 50 mg PO BID PRN HPI 6m breast exam HPI Details She is here for a history of LCIS of the right breast. She denies any palpable breast masses. She feels well overall. She had a mammogram last 11/18/2023 and this was unremarkable. She had completed a 5 year course of letrozole in 2019. She continues to follow with Dr. Dillard. 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 History of kidney cancer Chronic kidney disease Migraines Osteoarthritis Fibromyalgia Hypercholesteremia Surgical History H/O hysterectomy for benign disease Hx of surgical procedure (~08/03/23) H/O vaginal hysterectomy History of incisional hernia repair (~11/29/19) History of nephrectomy, left (~06/2018) Status post biopsy of kidney (~04/2018) History of breast biopsy (~05/11/14) History of tonsillectomy and adenoidectomy S/P removal of left ovary (~1978) History of removal of cyst (~1972) History of ankle surgery (~2003) H/O kidney removal History of breast surgery Hx of tonsillectomy Family History Father Stomach cancer Prostate cancer High cholesterol Sister Stroke Mother High cholesterol CLL (chronic lymphocytic leukemia) Maternal Aunt Breast cancer Social History Household Members: Spouse Housing: House Alcohol intake: current Alcohol intake frequency: holidays/special occasions only Patient Tobacco Use Status: Never used Tobacco Advance Directives Date on File: 07/25/20 service: No Current occupational status: 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 Sexual orientation: Straight/Heterosexual Gender identity: Female Female Reproductive History Menstrual Age of Menarche: 10 Review of Systems Const Denies chills and Denies fever(s) ENT Details: Loss of hearing the left Card Denies chest pain, Denies dyspnea and Denies dyspnea on exertion Resp Denies cough, Denies dyspnea and Denies dyspnea on exertion GI Denies hematochezia and Denies change in bowel habits Denies hematuria Musc Denies back pain and Denies limited range of motion Neuro Denies focal weakness and Denies convulsions Psych Denies depression and Denies mood swings Physical Exam Vital Signs: Last Vital Signs Pulse 78 12/02/23 09:31 BP 128/62 12/02/23 09:31 BMI result Body Mass Index 24.6 Const General: comfortable and no acute distress Orientation/consciousness: patient oriented x3 Neck Neck: Yes no lymphadenopathy Chest Other: No palpable breast masses, no nipple or skin changes, no axillary lymphadenopathy Resp Auscultation: clear to auscultation bilaterally Cardio Rhythm: regular rhythm GI Palpation (GI): Soft to palpation, nontender and no guarding Neuro General: patient oriented x3 Assessment & Plan Assessment & Plan (1) 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 I have reviewed her mammogram from this month and this is unremarkable I reminded her to continue with regular screening mammograms. I will see her again next year after her next mammogram. She is to continue to follow with Dr. Dillard as well. 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
[2023-12-02 09:31] VITALS: BP 128/62; PULSE 78; BMI 24.6
== END 2023-12-02 09:53 | disposition home or self-care (01) ==
PROVIDERS: PCP Internal Medicine; Visit Provider Surgery
DX: Z86.000 Personal history of in-situ neoplasm of breast (principal)
CPT/HCPCS: 99213

== ENCOUNTER → 2023-12-02 09:23 | Outpatient (BNVA) | payer MEDICARE, OTHER, SELFPAY | PROVIDERS: PCP Internal Medicine; Visit Provider Surgery | DX: Z86.000 Personal history of in-situ neoplasm of breast (principal) | CPT/HCPCS: 99212 ==

== ENCOUNTER 2023-12-04 09:46 | Outpatient (REF) | payer MEDICARE, OTHER, SELFPAY ==
--- NOTE | ~2023-12-04 | XR_ITS ---
EXAMINATION: XR cervical spine CLINICAL INFORMATION: Pain COMPARISON: Cervical spine radiographs 10/16/2019 TECHNIQUE: 6 views of the cervical spine were obtained. FINDINGS: The cervical spine is visualized to the level of C7-T1 on the lateral view. Minimal anterolisthesis of C4 on C5 similar to prior. Reversal of the usual cervical spine lordosis. Vertebral body heights are maintained. Lateral masses of C1 are well aligned on C2. Visualized portion of the dens is intact. Moderate degenerative disc disease at 5 C6 and C6-C7, manifested by disc space height and anterior disc osteophyte complexes with multilevel facet arthropathy similar to prior. Mild bilateral multilevel neural foraminal narrowing on the left slightly progressed from prior. No prevertebral soft tissue swelling. XR/XR cervical spine 4V IMPRESSION: 1. Moderate spondylosis of the cervical spine, as above detailed, similar to prior. 2. Mild bilateral neural foraminal narrowing, slightly progressed from prior on the left. 3. Reversal of the usual cervical spine lordosis. 4. Minimal anterolisthesis of C4 on C5 similar to prior.
== END 2023-12-04 09:47 | disposition home or self-care (01) ==
LOC: HO.XRAY 09:46
PROVIDERS: PCP Internal Medicine; Visit Provider Internal Medicine
DX: M54.2 Cervicalgia (principal)
CPT/HCPCS: 72050

== ENCOUNTER 2024-01-10 10:52 | Outpatient (REF) | payer MEDICARE, OTHER, SELFPAY ==
[2024-01-11 19:39] LABS: Immunoglobulin A 150 mg/dL (70-320)
[2024-01-11 20:02] LABS: Gliadin Deamidated IgA Ab 1.4 U/mL; Gliadin Deamidated IgG Ab <1.0 U/mL
[2024-01-12 12:24] LABS: Transglutaminase Ab IgG <1.0 U/mL; Transglutaminase IgA <1.0 U/mL
[2024-01-13 13:53] LABS: Endomysial IgA Antibody Negative (Negative)
== END 2024-01-10 10:53 | disposition home or self-care (01) ==
LOC: HO.LAB 10:52
PROVIDERS: PCP Internal Medicine; Visit Provider Internal Medicine
DX: K58.1 Irritable bowel syndrome with constipation (principal)
CPT/HCPCS: 36415; 82784; 86231; 86258; 86364

== ENCOUNTER 2024-02-22 08:42 | Outpatient (AMB) | payer MEDICARE, OTHER, SELFPAY ==
[2024-02-22 08:44] VITALS: BMI 24.6
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
== END 2024-02-22 09:21 | disposition home or self-care (01) ==
PROVIDERS: PCP Internal Medicine; Visit Provider Orthopaedic Surgery
DX: M18.12 Unilateral primary osteoarthritis of first carpometacarpal joint, left hand (principal); M66.241 Spontaneous rupture of extensor tendons, right hand; M66.242 Spontaneous rupture of extensor tendons, left hand
CPT/HCPCS: 20600; 99213

== ENCOUNTER → 2024-02-22 08:42 | Outpatient (BNVA) | payer MEDICARE, OTHER, SELFPAY | PROVIDERS: PCP Internal Medicine; Visit Provider Orthopaedic Surgery | DX: M18.12 Unilateral primary osteoarthritis of first carpometacarpal joint, left hand (principal); M66.241 Spontaneous rupture of extensor tendons, right hand; M66.242 Spontaneous rupture of extensor tendons, left hand | CPT/HCPCS: 20600; 99212; J1010 ==

== ENCOUNTER 2024-02-23 09:00 | Outpatient (RCR) | payer OTHER, MEDICARE, SELFPAY | END 2024-04-05 15:09 | disposition home or self-care (01) | LOC: HO.PT 09:00 | PROVIDERS: PCP Internal Medicine; Visit Provider Internal Medicine | DX: M54.2 Cervicalgia (principal) | CPT/HCPCS: 97110; 97140; 97161 ==

== ENCOUNTER 2024-03-22 13:41 | Outpatient (REF) | payer MEDICARE, OTHER, SELFPAY ==
[2024-03-22 13:58] LABS: MANUAL DIFF FLAG NO
[2024-03-22 14:51] LABS: Basophils Absolute Auto 0.1 X10*3/uL (0.0-0.2); Basophils Percent Auto 0.6 % (0-2); Eosinophils Absolute Auto 0.1 X10*3/uL (0.0-0.4); Eosinophils Percent Auto 1.7 % (0-4); Hematocrit 42.4 % (37.0-47.0); Hemoglobin 13.8 g/dl (12.0-16.0); Imm Gran Abs Auto 0.04 X10*3/uL (0.00-0.03); Imm Gran Pct Auto 0.5 % (0.0-0.4); Lymphocytes Absolute Auto 1.7 X10*3/uL (1.2-4.9); Lymphocytes Percent Auto 19.8 % (20-40); Mean Corpuscular HGB Conc 32.5 g/dl (31.0-35.0); Mean Corpuscular Hemoglobin 29.5 pg (27.0-33.0); Mean Corpuscular Volume 90.6 fL (80.0-98.0); Mean Platelet Volume 9.4 fL (9.4-12.3); Monocytes Absolute Auto 0.5 X10*3/uL (0.1-1.2); Monocytes Percent Auto 6.3 % (2-11); Neutrophils Percent Auto 71.1 % (45-73); Platelet Count 389 X10*3/uL (160-400); Red Blood Count 4.68 X10*6/uL (4.20-5.50); White Blood Count 8.4 X10*3/uL (4.8-10.8)
[2024-03-22 15:29] LABS: Alanine Aminotransferase 16 U/L (0-31); Alkaline Phosphatase 73 U/L (39-117); Anion Gap 10 (12-20); Aspartate Amino Transferase 22 U/L (5-31); Bilirubin Total 0.8 mg/dL (0.0-1.0); Blood Urea Nitrogen 10 mg/dL (9-16); C Reactive Protein < 0.10 mg/dL (< or = 0.50); Calcium 9.8 mg/dL (8.4-10.2); Carbon Dioxide 29 mmol/L (22-29); Chloride 108 mmol/L (96-108); Estimated Glomerular Filt Rate 42; Glucose Random 115 mg/dL (60-115); Lipase 62 U/L (8-78); Potassium 4.1 mmol/L (3.3-5.1); Sodium 143 mmol/L (135-145); Total Protein 7.2 g/dL (6.5-8.0)
[2024-03-22 15:51] LABS: Vitamin B12 869 pg/mL (200-900)
== END 2024-03-22 13:42 | disposition home or self-care (01) ==
LOC: HO.LAB 13:41
PROVIDERS: PCP Internal Medicine; Visit Provider Internal Medicine
DX: M54.9 Dorsalgia, unspecified (principal); K21.9 Gastro-esophageal reflux disease without esophagitis; R10.9 Unspecified abdominal pain
CPT/HCPCS: 36415; 80053; 82550; 82607; 83690; 85025; 86140

== ENCOUNTER 2024-03-23 12:11 | Outpatient (REF) | payer MEDICARE, OTHER, SELFPAY | END 2024-03-23 12:12 | disposition home or self-care (01) | LOC: HO.LAB 12:11 | PROVIDERS: PCP Internal Medicine; Visit Provider Internal Medicine | DX: Z13.89 Encounter for screening for other disorder (principal) ==

== ENCOUNTER 2024-03-24 11:07 | Outpatient (REF) | payer MEDICARE, OTHER, SELFPAY ==
[2024-03-24 11:16] LABS: Appearance Urine Clear; Color Urine Yellow; Glucose Urine UA Negative (Negative); Leukocyte Esterase Urine Trace (Negative); Nitrite Urine Negative (Negative); UMIC TRIGGER UA YES; Urine Blood Negative (Negative); Urine Ketones Negative (Negative); Urine Protein Negative (Neg-Trace)
[2024-03-24 11:19] LABS: Bacteria Urine None Seen (None Seen); Hyaline Casts Urine 0-2 /LPF (0-2); RBC Urine 0-2 /HPF (0-2); Squamous Epithelial Cell Urine 0-2 /HPF (0-2); WBC Urine 0-5 /HPF (0-5)
[2024-03-24 11:54] LABS: Creatinine Urine 79.13 mg/dL; Total Protein Urine Random < 7 mg/dL (<12)
== END 2024-03-24 11:08 | disposition home or self-care (01) ==
LOC: HO.LNP 11:07
PROVIDERS: Visit Provider Internal Medicine Hypertension Specialist
DX: N18.30 Chronic kidney disease, stage 3 unspecified (principal)
CPT/HCPCS: 81001; 82570; 84156

== ENCOUNTER 2024-05-24 09:45 | Outpatient (AMB) | payer MEDICARE, OTHER, SELFPAY ==
--- NOTE | 2024-05-24 09:49 | A.OFFVIS_ITS ---
Vital Signs 05/24/24 09:50 Height 5 ft 3 in Weight 142 lb BMI 25.2 BP 136/61 Blood Pressure Location Rt brachial Position Sitting Pulse 86 Intake Visit Reasons: s/p hernia repair pain Intake Note: This patient presents for incisional pain, Hx Laparoscopic repair of a recurrent incisional hernia on the left lower quadrant using Echo mesh with extensive lysis of adhesions. Pt c/o; reports bulge, reports pulling sensation. 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 Required: No Accompanied by: Self / Same As Patient Allergies fentanyl [FENTANYL] Allergy (Severe, Verified 05/24/24 09:56) SEVERE VOMITING, severe headache, vomiting sulfamethoxazole [From BACTRIM] Allergy (Severe, Verified 05/24/24 09:56) CANNOT TAKE-ONLY HAS ONE KIDNEY trimethoprim [From BACTRIM] Allergy (Severe, Verified 05/24/24 09:56) CANNOT TAKE-ONLY HAS ONE KIDNEY azithromycin [AZITHROMYCIN] Allergy (Intermediate, Verified 05/24/24 09:56) DIARRHEA Medication List - Last Reconciled 05/24/24 by Regino Pierce MD albuterol sulfate 90 mcg/actuation 2 puffs PO DAILY PRN alendronate 70 mg PO QWEEK calcium carbonate-vitamin D3 500 mg-3.125 mcg (125 unit) 1 tab PO DAILY [id number]-dxdmlosd-wrgowb 1 tab PO DAILY omeprazole magnesium (Prilosec OTC) 20 mg PO DAILY polyethylene glycol 3350 (Miralax) 17 grams PO DAILY propranolol 10 mg PO DAILY psyllium husk (Metamucil) 0.4 grams PO DAILY simvastatin 20 mg PO BEDTIME tramadol 50 mg PO BID PRN HPI HPI s/p hernia repair pain: Details: She had undergone laparoscopic repair of a recurrent incisional hernia left lower quadrant last year. She wanted her abdomen checked because of her multiple GI complaints. She says she has bloating all the time and has this vague pain all over her abdomen periodically. She denies any palpable mass on the previous hernia repair site. She describes some constipation as well and irregular bowel habits. She is being seen by the compressed yeast supervisor. 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 History of kidney cancer Chronic kidney disease Migraines Osteoarthritis Fibromyalgia Hypercholesteremia Surgical History (Updated 05/24/24 @ 10:05 by Regino Pierce MD) History of hernia repair H/O hysterectomy for benign disease Hx of surgical procedure (~08/03/23) H/O vaginal hysterectomy History of incisional hernia repair (~11/29/19) History of nephrectomy, left (~06/2018) Status post biopsy of kidney (~04/2018) History of breast biopsy (~05/11/14) History of tonsillectomy and adenoidectomy S/P removal of left ovary (~1978) History of removal of cyst (~1972) History of ankle surgery (~2003) H/O kidney removal History of breast surgery Hx of tonsillectomy Family History Father Stomach cancer Prostate cancer High cholesterol Sister Stroke Mother High cholesterol CLL (chronic lymphocytic leukemia) Maternal Aunt Breast cancer Social History Household Members: Spouse Housing: House Alcohol intake: current Alcohol intake frequency: holidays/special occasions only Patient Tobacco Use Status: Never used Tobacco Advance Directives Date on File: 07/25/20 service: No Current occupational status: 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 Sexual orientation: Straight/Heterosexual Gender identity: Female Female Reproductive History Menstrual Age of Menarche: 10 Review of Systems Const Denies chills and Denies fever(s) Card Denies chest pain, Denies dyspnea and Denies dyspnea on exertion Resp Denies cough, Denies dyspnea and Denies dyspnea on exertion GI Denies hematochezia and Denies change in bowel habits Denies hematuria Musc Denies back pain and Denies limited range of motion Neuro Denies focal weakness and Denies convulsions Psych Denies depression and Denies mood swings Physical Exam Vital Signs: Last Vital Signs Pulse 86 05/24/24 09:50 BP 136/61 05/24/24 09:50 BMI result Body Mass Index 25.2 Const General: comfortable and no acute distress Resp Effort & Inspection: normal respiratory effort GI Other: No palpable recurrent hernia on the repair site on the left lower quadrant, no palpable mass Palpation (GI): Soft to palpation, not firm, nontender and no guarding Assessment & Plan Assessment & Plan (1) History of hernia repair: Code(s): Z98.890 - Other specified postprocedural states; Z87.19 - Personal history of other diseases of the digestive system Category: Surgical Plan: She wanted her hernia repair site examined as she has had multiple GI complaints including bloating, diffuse pain and irregular bowel habits Current exam does not reveal any obvious recurrent hernia. The repair site appears to be intact. Abdomen soft and benign She is scheduled to have an MRI done in August 2024 a surveillance for her previous history of renal cancer. I told her that if there is any significant finding for the abdomen, she can always come back to the office. 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 However, the MRI machine is being updated here in [facility] and should be up and running so while next month. I reminded her to call the office if she has problems with scheduling this. 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
[2024-05-24 09:50] VITALS: BP 136/61; PULSE 86; BMI 25.2
== END 2024-05-24 10:03 | disposition home or self-care (01) ==
PROVIDERS: PCP Internal Medicine; Visit Provider Surgery
DX: R10.9 Unspecified abdominal pain (principal); Z98.890 Other specified postprocedural states; Z86.000 Personal history of in-situ neoplasm of breast
CPT/HCPCS: 99213

== ENCOUNTER → 2024-05-24 09:45 | Outpatient (BNVA) | payer MEDICARE, OTHER, SELFPAY | PROVIDERS: PCP Internal Medicine; Visit Provider Surgery | DX: Z09 Encounter for follow-up examination after completed treatment for conditions other than malignant neoplasm (principal); Z87.19 Personal history of other diseases of the digestive system; Z86.000 Personal history of in-situ neoplasm of breast | CPT/HCPCS: 99212 ==

== ENCOUNTER 2024-05-30 08:31 | Outpatient (REF) | payer MEDICARE, OTHER, SELFPAY ==
[2024-05-30 10:32] LABS: MANUAL DIFF FLAG NO
[2024-05-30 10:34] LABS: Basophils Absolute Auto 0.1 X10*3/uL (0.0-0.2); Basophils Percent Auto 0.9 % (0-2); Eosinophils Absolute Auto 0.2 X10*3/uL (0.0-0.4); Eosinophils Percent Auto 3.4 % (0-4); Hemoglobin 13.9 g/dl (12.0-16.0); Imm Gran Abs Auto 0.02 X10*3/uL (0.00-0.03); Imm Gran Pct Auto 0.3 % (0.0-0.4); Lymphocytes Absolute Auto 2.2 X10*3/uL (1.2-4.9); Mean Corpuscular HGB Conc 32.3 g/dl (31.0-35.0); Mean Corpuscular Hemoglobin 29.8 pg (27.0-33.0); Mean Corpuscular Volume 92.1 fL (80.0-98.0); Mean Platelet Volume 9.2 fL (9.4-12.3); Monocytes Absolute Auto 0.6 X10*3/uL (0.1-1.2); Monocytes Percent Auto 8.8 % (2-11); Neutrophils Absolute Auto 3.4 x10*3/uL (2.0-8.3); Neutrophils Percent Auto 52.6 % (45-73); Platelet Count 378 X10*3/uL (160-400); Red Blood Count 4.67 X10*6/uL (4.20-5.50); Red Cell Distribution Width 13.2 % (11.0-16.0); White Blood Count 6.5 X10*3/uL (4.8-10.8)
[2024-05-30 11:10] LABS: Alanine Aminotransferase 17 U/L (0-31); Albumin Level 4.1 g/dL (3.5-5.0); Alkaline Phosphatase 67 U/L (39-117); Anion Gap 11 (12-20); Aspartate Amino Transferase 20 U/L (5-31); Bilirubin Total 0.6 mg/dL (0.0-1.0); Blood Urea Nitrogen 14 mg/dL (9-16); Calcium 9.6 mg/dL (8.4-10.2); Carbon Dioxide 27 mmol/L (22-29); Chloride 109 mmol/L (96-108); Cholesterol 261 mg/dL (<200); Estimated Glomerular Filt Rate 49; Glucose Fasting 102 mg/dL (60-99); HDL Cholesterol 89 mg/dL (>40); LDL Cholesterol Calculated 146 mg/dL (<100); Potassium 4.4 mmol/L (3.3-5.1); Sodium 143 mmol/L (135-145); Total Protein 7.2 g/dL (6.5-8.0); Triglycerides 133 mg/dL (<150)
== END 2024-05-30 08:32 | disposition home or self-care (01) ==
LOC: HO.10HDL 08:31
PROVIDERS: Visit Provider Internal Medicine
DX: E78.00 Pure hypercholesterolemia, unspecified (principal); K58.9 Irritable bowel syndrome, unspecified; K21.9 Gastro-esophageal reflux disease without esophagitis
CPT/HCPCS: 36415; 80053; 80061; 85025

== ENCOUNTER 2024-06-25 22:04 | Emergency (ER) | payer MEDICARE, OTHER, SELFPAY ==
--- NOTE | ~2024-06-25 | CT_ITS ---
EXAMINATION: CT ABDOMEN AND PELVIS WITHOUT CONTRAST CLINICAL INFORMATION: Left-sided pain COMPARISON: 05/17/2023 TECHNIQUE: Multidetector volumetric imaging was performed from the superior aspect of the liver through the pubic symphysis. Sagittal and coronal reformatted images were obtained on the technologist's workstation. This CT examination was performed using dose optimization techniques as appropriate, variously including the following: *Automated exposure control *Adjustment of mA and/or kV according to patient size (this includes techniques or standardized protocols for targeted exams where dose is matched to indication/reason for exam; i.e. extremities or head) *Use of iterative reconstruction technique DLP: 482 mGy-cm FINDINGS: LUNG BASES: Minimal dependent atelectasis. LIVER, GALLBLADDER, AND BILIARY TREE: The liver is normal in size, shape, and attenuation. No focal hepatic lesion or biliary ductal dilatation is identified on this noncontrast exam. Small gallstone noted towards the fundus. No appreciable gallbladder wall thickening or surrounding inflammation. PANCREAS: Unremarkable. SPLEEN: Unremarkable. ADRENAL GLANDS: Unremarkable. KIDNEYS AND URETERS: The left kidney is absent. There is mild fullness of the right renal pelvis with no obstructing calculus seen. There is a 3 mm calculus in the mid right kidney. BLADDER: Unremarkable. GASTROINTESTINAL TRACT: Small hiatal hernia. There is suspected mild mural prominence of a few proximal small bowel loops in the left abdomen with mild adjacent mesenteric stranding; enteritis is a possibility. There is colonic diverticulosis without convincing diverticulitis. No evidence of bowel obstruction or significant wall thickening. No free fluid or free air is seen. ABDOMINAL WALL: No significant hernia is appreciated. LYMPH NODES: Normal. VASCULAR: Unremarkable. PELVIC VISCERA: Patient is status post hysterectomy. OSSEOUS STRUCTURES: Multilevel disc space narrowing in the spine and scattered endplate osteophytes. CT/CT abdomen pelvis wo IV con IMPRESSION: 1. Suspected mild mural prominence of a few proximal small bowel loops in the left abdomen with mild adjacent stranding; enteritis is a possibility. 2. Colonic diverticulosis without convincing diverticulitis. 3. Cholelithiasis. 4. Absent left kidney. Mild fullness of the right renal pelvis with no obstructing calculus seen. 5. Small hiatal hernia. Electronically signed by: Zelalem Khan MD 06/26/2024 01:38 AM EDT RP
[2024-06-25 22:10] VITALS: BP 146/86; PULSE 87; RESP 18; TEMP 36.8; O2SAT 95; BMI 25.2
[2024-06-25 22:46] LABS: MANUAL DIFF FLAG NO
[2024-06-25 22:48] LABS: Basophils Absolute Auto 0.1 X10*3/uL (0.0-0.2); Basophils Percent Auto 0.4 % (0-2); Eosinophils Absolute Auto 0.2 X10*3/uL (0.0-0.4); Eosinophils Percent Auto 1.2 % (0-4); Hematocrit 39.7 % (37.0-47.0); Hemoglobin 13.1 g/dl (12.0-16.0); Imm Gran Abs Auto 0.12 X10*3/uL (0.00-0.03); Imm Gran Pct Auto 0.9 % (0.0-0.4); Lymphocytes Absolute Auto 2.6 X10*3/uL (1.2-4.9); Lymphocytes Percent Auto 19.6 % (20-40); Mean Corpuscular Hemoglobin 29.5 pg (27.0-33.0); Mean Corpuscular Volume 89.4 fL (80.0-98.0); Mean Platelet Volume 8.8 fL (9.4-12.3); Monocytes Absolute Auto 1.1 X10*3/uL (0.1-1.2); Monocytes Percent Auto 7.9 % (2-11); Neutrophils Absolute Auto 9.3 x10*3/uL (2.0-8.3); Platelet Count 443 X10*3/uL (160-400); Red Blood Count 4.44 X10*6/uL (4.20-5.50); Red Cell Distribution Width 12.6 % (11.0-16.0); White Blood Count 13.3 X10*3/uL (4.8-10.8)
[2024-06-25 23:03] LABS: Alanine Aminotransferase 19 U/L (0-31); Alkaline Phosphatase 74 U/L (39-117); Anion Gap 14 (12-20); Aspartate Amino Transferase 22 U/L (5-31); Bilirubin Direct 0.1 mg/dL (0.0-0.5); Bilirubin Total 0.6 mg/dL (0.0-1.0); Blood Urea Nitrogen 11 mg/dL (9-16); Carbon Dioxide 26 mmol/L (22-29); Chloride 108 mmol/L (96-108); Creatinine Clr Calc Pharmacy 40.6; Estimated Glomerular Filt Rate 45; Glucose Random 110 mg/dL (60-115); Lipase 85 U/L (8-78); Potassium 4.7 mmol/L (3.3-5.1); Sodium 143 mmol/L (135-145); Total Protein 6.9 g/dL (6.5-8.0)
--- NOTE | 2024-06-25 23:11 | ED.ABDPAIN ---
HPI - Abdominal Pain General Chief Complaint: Abdominal Pain Stated Complaint: L side pain Time Seen by Provider: 06/25/24 23:10 Source: patient Mode of arrival: ambulatory Limitations: no limitations History of Present Illness ED Provider: Rosa M MEI HPI narrative: This is a 68-year-old female history of CKD, renal cell carcinoma status post left-sided nephrectomy, breast cancer, osteoarthritis, vaginal prolapse, incisional hernia Related Data Home Medications ?Medication ?Instructions ?Recorded ?Confirmed albuterol sulfate 90 mcg/actuation 2 puff PO DAILY PRN Wheezing 08/14/20 05/24/24 aerosol inhaler propranolol 10 mg tablet 10 mg PO DAILY 08/14/20 05/24/24 simvastatin 20 mg tablet 20 mg PO BEDTIME 08/14/20 05/24/24 tramadol 50 mg tablet 50 mg PO BID PRN Moderate Pain 08/14/20 05/24/24 (Scale Score 5-6) calcium carbonate 500 mg-vitamin 1 tab PO DAILY 09/16/20 05/24/24 D3 3.125 mcg (125 unit) tablet gqmzuokbzkmz-xgwqhblw-pelbtg tablet 1 tab PO DAILY 09/16/20 05/24/24 omeprazole magnesium 20 mg 20 mg PO DAILY 09/16/20 05/24/24 tablet,delayed release (Prilosec OTC) polyethylene glycol 3350 17 gram 17 g PO DAILY 01/22/21 05/24/24 oral powder packet (Miralax) psyllium husk 0.4 gram capsule 0.4 g PO DAILY 01/22/21 05/24/24 (Metamucil) atorvastatin 20 mg tablet (Lipitor) 20 mg PO DAILY 06/07/24 Previous Rx's ?Medication ?Instructions ?Recorded alendronate 70 mg tablet 70 mg PO QWEEK #14 tabs 05/22/24 Allergies Allergy/AdvReac Type Severity Reaction Status Date / Time fentanyl [FENTANYL] Allergy Severe SEVERE Verified 06/25/24 22:12 VOMITING, severe headache, vomiting sulfamethoxazole Allergy Severe CANNOT Verified 06/25/24 22:12 [From BACTRIM] TAKE-ONLY HAS ONE KIDNEY trimethoprim [From BACTRIM] Allergy Severe CANNOT Verified 06/25/24 22:12 TAKE-ONLY HAS ONE KIDNEY azithromycin [AZITHROMYCIN] Allergy Intermediate DIARRHEA Verified 06/25/24 22:12 Review of Systems Review of Systems Yes all other systems are reviewed and are negative [facility] Past Medical History Attestation statement: The following information was validated with the patient. 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 History of kidney cancer Chronic kidney disease Migraines Osteoarthritis Fibromyalgia Hypercholesteremia Surgical History History of hernia repair H/O hysterectomy for benign disease Hx of surgical procedure (~08/03/23) H/O vaginal hysterectomy History of incisional hernia repair (~11/29/19) History of nephrectomy, left (~06/2018) Status post biopsy of kidney (~04/2018) History of breast biopsy (~05/11/14) History of tonsillectomy and adenoidectomy S/P removal of left ovary (~1978) History of removal of cyst (~1972) History of ankle surgery (~2003) H/O kidney removal History of breast surgery Hx of tonsillectomy Family History Family History Father Stomach cancer Prostate cancer High cholesterol Sister Stroke Mother High cholesterol CLL (chronic lymphocytic leukemia) Maternal Aunt Breast cancer Social History Social History Household Members: Spouse Housing: House Alcohol intake: current Alcohol intake frequency: holidays/special occasions only Patient Tobacco Use Status: Never used Tobacco Advance Directives: Yes Advance Directives on File: Yes Advance Directives Date on File: 07/25/20 Do you have a plan to hurt others: No Plan service: No Current occupational status: 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 Oriented X3.? No acute distress.? Head: Normocephalic, atraumatic, no step-offs or deformities Eyes: Pupils equal, round and reactive to light.? Neck: Normal inspection.? Neck supple.? CVS: Normal heart rate and rhythm.? Pulses normal.? Respiratory: No respiratory distress.? Breath sounds normal.? Abdomen: Soft and nontender.? Skin: Skin warm and dry.? Normal skin color.? Normal skin turgor.? Extremities: No lower extremity edema.? No calf ttp. 5/5 strength to bilateral upper and lower extremities Neuro: Oriented X 3.? No motor deficit.? No sensory deficit. CN 2-12 intact Course Reevaluation(s) Reevaluation #1: CBC with leukocytosis no left shift. Chemistry no acute findings needing intervention. Patient has mild elevation in lipase however not meeting criteria for pancreatitis. Time: 23:16 Reevaluation #2: Sign out to Dr. James Time: 00:39 Medical Decision Making Medical Decision Making [facility] Narrative: 1114 68-year-old female presents with concerns of left-sided abdominal pain that started earlier today also reporting associated increased urination. Physical exam mild discomfort to the entire left side of abdomen. Normoactive bowel sounds. History and physical exam concerning for viral illness versus diverticulitis versus urinary infection versus cystitis. Will rule out metabolic derangements. Unlikely acute abdomen, appendicitis, cholecystitis, cholangitis, pancreatitis, obstruction. Plan labs, imaging, urine Differential Diagnosis Differential Diagnoses: The differential diagnosis associated with the presentation includes History and physical exam concerning for viral illness versus diverticulitis versus urinary infection versus cystitis. Will rule out metabolic derangements. Unlikely acute abdomen, appendicitis, cholecystitis, cholangitis, pancreatitis, obstruction. Admission/Observation Consideration of admission/observation: Escalation of care including admission/observation considered No indication Lab Data [facility] Lab Attestation statement: I reviewed the patient's lab results. 06/25/24 22:38 06/25/24 22:38 Labs: Lab Results 06/25/24 Range/Units 22:38 WBC 13.3 H (4.8-10.8) X10*3/uL RBC 4.44 (4.20-5.50) X10*6/uL Hgb 13.1 (12.0-16.0) g/dl Hct 39.7 (37.0-47.0) % MCV 89.4 (80.0-98.0) fL MCH 29.5 (27.0-33.0) pg MCHC 33.0 (31.0-35.0) g/dl RDW 12.6 (11.0-16.0) % Plt Count 443 H (160-400) X10*3/uL MPV 8.8 L (9.4-12.3) fL Immature Gran % (Auto) 0.9 H (0.0-0.4) % Neut % (Auto) 70.0 (45-73) % Lymph % (Auto) 19.6 L (20-40) % Refugio % (Auto) 7.9 (2-11) % Eos % (Auto) 1.2 (0-4) % Baso % (Auto) 0.4 (0-2) % Lymph # (Auto) 2.6 (1.2-4.9) X10*3/uL Refugio # (Auto) 1.1 (0.1-1.2) X10*3/uL Eos # (Auto) 0.2 (0.0-0.4) X10*3/uL Baso # (Auto) 0.1 (0.0-0.2) X10*3/uL Abs Immat Gran (auto) 0.12 H (0.00-0.03) X10*3/uL Absolute Neuts (auto) 9.3 H (2.0-8.3) x10*3/uL Absolute Nucleated RBC 0.000 (0.0-0.012) X10*3/uL Nucleated RBC % (auto) 0.0 (0.0-0.2) /100WBC Sodium 143 (135-145) mmol/L Potassium 4.7 (3.3-5.1) mmol/L Chloride 108 (96-108) mmol/L Carbon Dioxide 26 (22-29) mmol/L Anion Gap 14 (12-20) BUN 11 (9-16) mg/dL Creatinine 1.18 (0.5-1.4) mg/dL Estim Creat Clear Calc 40.6 Estimated GFR 45 Random Glucose 110 (60-115) mg/dL Calcium 10.0 (8.4-10.2) mg/dL Total Bilirubin 0.6 (0.0-1.0) mg/dL Direct Bilirubin 0.1 (0.0-0.5) mg/dL AST 22 (5-31) U/L ALT 19 (0-31) U/L Alkaline Phosphatase 74 (39-117) U/L Total Protein 6.9 (6.5-8.0) g/dL Albumin 4.0 (3.5-5.0) g/dL Lipase 85 H (8-78) U/L Independent Interpretation I performed an independent interpretation of an: CT Scan Radiology Impression Discussion of test interpretation with radiology: I have reviewed the radiologist's reading. External Record Review External record reviewed: Inpatient record, Office record, Outpatient record, Prior outpatient labs, Prior outpatient radiology, Primary care record and Outside ED record Chronic Conditions Patient?s care impacted by: Cancer and Other (Osteoarthritis) Medications Administered Generic Name Dose Route Start Last Admin Trade Name Freq PRN Reason Stop Dose Admin Sodium Chloride 1,000 mls @ 999 mls/hr 06/26/24 00:30 06/26/24 00:33 Ns IV 06/26/24 01:30 999 mls/hr .Q1H1M ZAHRA Administration Discontinued Medications Generic Name Dose Route Start Last Admin Trade Name Freq PRN Reason Stop Dose Admin Morphine Sulfate 4 mg 06/25/24 23:26 06/26/24 00:21 Morphine Sulfate 4 Mg/Ml Cartridge IVPUSH 06/25/24 23:27 4 mg ONCE ONE Administration Protocol Ondansetron HCl 4 mg 06/25/24 23:26 06/26/24 00:21 Ondansetron Hcl 4 Mg/2 Ml Vial IVPUSH 06/25/24 23:27 4 mg ONCE ONE Administration Discharge Plan Discharge Clinical Impression: Abdominal pain Prescriptions: No Action alendronate 70 mg tablet 70 mg PO QWEEK Qty: 14 3RF atorvastatin [Lipitor] 20 mg tablet 20 mg PO DAILY Centrum Silver Tablet 1 tab PO DAILY omeprazole magnesium [Prilosec OTC] 20 mg Tablet,Delayed Release (Dr/Ec) 20 mg PO DAILY calcium carbonate-vitamin D3 [Calcium 500 + D (D3)] 500 mg(1,250mg) -125 unit Tablet 1 tab PO DAILY polyethylene glycol 3350 [Miralax] 17 gram powder in packet 17 g PO DAILY psyllium husk [Metamucil] 0.4 gram capsule 0.4 g PO DAILY tramadol 50 mg tablet 50 mg PO BID PRN (Reason: Moderate Pain (Scale Score 5-6)) simvastatin 20 mg tablet 20 mg PO BEDTIME propranolol 10 mg tablet 10 mg PO DAILY albuterol sulfate 90 mcg/actuation HFA aerosol inhaler 2 puff PO DAILY PRN (Reason: Wheezing) Print Language: Indian
[2024-06-25 23:48] VITALS: BP 145/97; PULSE 76; RESP 16; TEMP 36.9; O2SAT 98
[2024-06-26] MEDS: Morphine Sulfate 4 MG/ML CARTRIDGE IVPUSH ×2 (00:21→02:10)
[2024-06-26] MEDS: ondansetron HCL 4 MG/2 ML VIAL IVPUSH (00:21)
[2024-06-26] MEDS: 0.9 % Sodium Chloride 1,000 ML 999 ML IV (00:33)
[2024-06-26 01:34] VITALS: BP 159/75; PULSE 94; RESP 16; TEMP 36.8; O2SAT 95
[2024-06-26 01:48] LABS: Appearance Urine Clear; Color Urine Yellow; Glucose Urine UA Negative (Negative); Leukocyte Esterase Urine Trace (Negative); Nitrite Urine Negative (Negative); UMIC TRIGGER UACC YES; Urine Blood Negative (Negative); Urine Ketones Negative (Negative); Urine Protein Negative (Neg-Trace)
[2024-06-26 01:51] LABS: Bacteria Urine None Seen (None Seen); Hyaline Casts Urine 0-2 /LPF (0-2); RBC Urine 0-2 /HPF (0-2); Squamous Epithelial Cell Urine 0-2 /HPF (0-2); WBC Urine 0-5 /HPF (0-5)
[2024-06-26] MEDS: cefuroxime axetiL 500 MG TABLET PO (02:10)
[2024-06-26] MEDS: metroNIDAZOLE 500 MG TABLET PO (02:10)
[2024-06-26 02:15] VITALS: BP 159/75; PULSE 94; RESP 16; TEMP 36.8; O2SAT 95
== END 2024-06-26 02:15 | disposition home or self-care (01) ==
PROVIDERS: Emergency Medicine Emergency Medical Services; Emergency Provider Internal Medicine; PCP Internal Medicine
DX: R10.30 Lower abdominal pain, unspecified (principal); R35.0 Frequency of micturition; Z79.899 Other long term (current) drug therapy
CPT/HCPCS: 36415; 74176; 80048; 80076; 81001; 83690; 85025; 96374; 96375; 96376; 99284; J2270; J2405

== ENCOUNTER 2024-07-06 11:49 | Outpatient (REF) | payer MEDICARE, OTHER, SELFPAY ==
[2024-07-06 12:06] LABS: MANUAL DIFF FLAG NO
[2024-07-06 12:24] LABS: Basophils Percent Auto 0.4 % (0-2); Eosinophils Absolute Auto 0.2 X10*3/uL (0.0-0.4); Eosinophils Percent Auto 2.1 % (0-4); Hematocrit 42.9 % (37.0-47.0); Hemoglobin 13.8 g/dl (12.0-16.0); Imm Gran Abs Auto 0.03 X10*3/uL (0.00-0.03); Imm Gran Pct Auto 0.4 % (0.0-0.4); Lymphocytes Absolute Auto 1.9 X10*3/uL (1.2-4.9); Lymphocytes Percent Auto 25.8 % (20-40); Mean Corpuscular HGB Conc 32.2 g/dl (31.0-35.0); Mean Corpuscular Hemoglobin 29.6 pg (27.0-33.0); Mean Corpuscular Volume 91.9 fL (80.0-98.0); Mean Platelet Volume 9.4 fL (9.4-12.3); Monocytes Absolute Auto 0.6 X10*3/uL (0.1-1.2); Monocytes Percent Auto 8.7 % (2-11); Neutrophils Absolute Auto 4.5 x10*3/uL (2.0-8.3); Neutrophils Percent Auto 62.6 % (45-73); Platelet Count 528 X10*3/uL (160-400); Red Blood Count 4.67 X10*6/uL (4.20-5.50); Red Cell Distribution Width 13.5 % (11.0-16.0); White Blood Count 7.2 X10*3/uL (4.8-10.8)
[2024-07-06 12:57] LABS: C Reactive Protein < 0.10 mg/dL (< or = 0.50)
[2024-07-06 13:03] LABS: Erythrocyte Sedimentation Rate 8 MM/HR (0-20)
== END 2024-07-06 11:50 | disposition home or self-care (01) ==
LOC: HO.LAB 11:49
PROVIDERS: PCP Internal Medicine; Visit Provider Internal Medicine
DX: R19.7 Diarrhea, unspecified (principal)
CPT/HCPCS: 36415; 85025; 85652; 86140

== ENCOUNTER 2024-07-07 17:43 | Outpatient (REF) | payer MEDICARE, OTHER, SELFPAY ==
[2024-07-07 18:44] LABS: CDiff Gene PCR NEGATIVE (Negative)
[2024-07-07 18:47] LABS: Leukocytes Stool Qualitative NEGATIVE (NEGATIVE)
[2024-07-08 09:08] LABS: Adenovirus F 40/41 Not Detected (Not Detect.); Astrovirus Not Detected (Not Detect.); Campylobacter Not Detected (Not Detect.); Cryptosporidium Not Detected (Not Detect.); Cyclospora cayetanensis Not Detected (Not Detect.); E. coli EAEC Not Detected (Not Detect.); E. coli EPEC Not Detected (Not Detect.); E. coli ETEC Not Detected (Not Detect.); E. coli STEC Not Detected (Not Detect.); Entamoeba histolytica Not Detected (Not Detect.); Giardia lamblia Not Detected (Not Detect.); Norovirus GI/GII Not Detected (Not Detect.); Plesiomonas shigelloides Not Detected (Not Detect.); Rotavirus A Not Detected (Not Detect.); Salmonella Not Detected (Not Detect.); Sapovirus Not Detected (Not Detect.); Shigella sp./EIEC Not Detected (Not Detect.); Vibrio Not Detected (Not Detect.); Vibrio Cholerae Not Detected (Not Detect.); Yersinia enterocolitica Not Detected (Not Detect.)
[2024-07-14 21:08] LABS: Calprotectin, Fecal 10 mcg/g
== END 2024-07-07 17:44 | disposition home or self-care (01) ==
LOC: HO.LNP 17:43
PROVIDERS: Visit Provider Internal Medicine
DX: R19.7 Diarrhea, unspecified (principal)
CPT/HCPCS: 83993; 87493; 87507; 89055

== ENCOUNTER 2024-07-24 09:51 | Outpatient (REF) | payer MEDICARE, OTHER, SELFPAY ==
[2024-07-24 10:02] LABS: MANUAL DIFF FLAG NO
[2024-07-24 11:02] LABS: Basophils Absolute Auto 0.1 X10*3/uL (0.0-0.2); Basophils Percent Auto 0.7 % (0-2); Eosinophils Absolute Auto 0.2 X10*3/uL (0.0-0.4); Eosinophils Percent Auto 3.2 % (0-4); Hemoglobin 14.1 g/dl (12.0-16.0); Imm Gran Abs Auto 0.06 X10*3/uL (0.00-0.03); Imm Gran Pct Auto 0.8 % (0.0-0.4); Lymphocytes Absolute Auto 2.1 X10*3/uL (1.2-4.9); Lymphocytes Percent Auto 29.7 % (20-40); Mean Corpuscular Hemoglobin 29.9 pg (27.0-33.0); Mean Corpuscular Volume 93.2 fL (80.0-98.0); Mean Platelet Volume 9.8 fL (9.4-12.3); Monocytes Absolute Auto 0.6 X10*3/uL (0.1-1.2); Monocytes Percent Auto 8.4 % (2-11); Neutrophils Absolute Auto 4.1 x10*3/uL (2.0-8.3); Neutrophils Percent Auto 57.2 % (45-73); Platelet Count 380 X10*3/uL (160-400); Red Blood Count 4.72 X10*6/uL (4.20-5.50); Red Cell Distribution Width 13.1 % (11.0-16.0); White Blood Count 7.1 X10*3/uL (4.8-10.8)
== END 2024-07-24 09:52 | disposition home or self-care (01) ==
LOC: HO.LAB 09:51
PROVIDERS: PCP Internal Medicine; Visit Provider Internal Medicine
DX: R19.7 Diarrhea, unspecified (principal); D75.839 Thrombocytosis, unspecified
CPT/HCPCS: 36415; 85025

== ENCOUNTER → 2024-07-26 08:52 | Outpatient (BNV) | payer MEDICARE, OTHER, SELFPAY | PROVIDERS: PCP Internal Medicine; Visit Provider Internal Medicine | DX: Z85.3 Personal history of malignant neoplasm of breast (principal) | CPT/HCPCS: 77049 ==

== ENCOUNTER 2024-07-26 08:56 | Outpatient (REF) | payer MEDICARE, OTHER, SELFPAY ==
--- NOTE | ~2024-07-26 | MR_ITS ---
EXAMINATION: MR BREAST WITHOUT AND WITH CONTRAST, BILATERAL CLINICAL INFORMATION: High risk MRI screening surveillance. History of left breast LCIS status post excision 2013. COMPARISON: MRI April 2023 mammogram November 2023. TECHNIQUE: MR imaging of the breast was performed using T1, T2 and fat saturation techniques. Dynamic multiphase imaging was also performed after administration of intravenous gadolinium contrast agent. FINDINGS: There is heterogeneous fibroglandular breast tissue with moderate background enhancement with scattered enhancing foci bilaterally. LEFT BREAST: No suspicious mass or nonmass enhancement. No axillary or internal mammary adenopathy. RIGHT BREAST: No suspicious mass or nonmass enhancement. No axillary or internal mammary adenopathy. Other: Limited views of the chest and abdomen demonstrate a centimeter T2 hyperintense oval lesion in the left lobe of the liver seen on series 3 image 68/68 this is difficult to characterize and is only seen on one image. MR/MR breast BI wo/w con IMPRESSION: 1. No MRI evidence of malignancy bilateral breast. 2. 1 cm T2 hyperintense lesion in the left lobe of liver difficult to evaluate and not optimally timed for contrast in the liver. If clinically significant cross-sectional imaging or ultrasound could be considered for further evaluation. ASSESSMENT: LEFT BREAST: BI-RADS 2 benign. RIGHT BREAST: BI-RADS 1-Negative RECOMMENDATIONS: Recommend yearly MRI screening surveillance. Electronically signed by: Rachel Moss DO 08/18/2024 12:00 PM DERKE
[2024-07-26] MEDS: gadobutroL 7.5 ML VIAL IVPUSH (10:15)
== END 2024-07-26 08:57 | disposition home or self-care (01) ==
LOC: HO.MRI 08:56
PROVIDERS: PCP Internal Medicine; Visit Provider Surgery
DX: C50.919 Malignant neoplasm of unspecified site of unspecified female breast (principal)
CPT/HCPCS: 77049; A9585

== ENCOUNTER 2024-09-13 12:34 | Outpatient (AMB) | payer MEDICARE, OTHER, SELFPAY ==
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
[2024-09-13 12:46] VITALS: BMI 25.2
--- OUTSIDE RECORDS SUMMARY | 2024-09-19 18:45 | XMS_ITS ---
Author Organization [facility] Address [address] [place] [address] Care Team Providers Care Garment Alteration Examiner Name Role Phone Regino Coleman MD Primary Care Provider Unavaila Aye Chandler Unavailable [phone] REASON FOR VISIT Reschedule Encounters Encounter Location Date Provider Diagnosis [address] [address] 06/30/2024 Aye Bliss Plan Of Treatment Next Appt Details Provider Name:Aye Bliss , 12/11/2024 08:15:00 AM, [address] [place], [address], Progress Notes * Alexander HAHNeDOB: [birth year] (68 yo F)Acc No.[id number]:06/30/2024 Patient:?Rebekah Hahn :1955???Age:68 Y???Sex:Female Address:[address] [place] [address], [phone] * true * Date:? Generated for Printi ng/Famanjulag/eTransmitting on:?09/19/2024 06:45 PM EST
--- OUTSIDE RECORDS SUMMARY | 2024-09-19 18:45 | XMS_ITS ---
Author Organization [facility] Address [address] [place] [id number] Care Team Providers Care Specialty Molder Name Role Phone Regino Coleman MD Primary Care Provider Unavaila Aye Chandler [phone] Encounters Encounter Location Date Provider Diagnosis [address] [address] 07/03/2024 Aye Bliss Plan Of Treatment Next Appt Details Provider Name:Aye Bliss , 12/11/2024 08:15:00 AM, [address] [place] [address], [phone], Progress Notes * Alexander HAHNeDOB: [birth year] (68 yo F)Acc No.[id number]:07/03/2024 Progress Note Patient:?Rebekah HAHN Provider:?Aye Bliss DPM :1955???Age:68 Y???Sex:Female D ate:07/03/2024 Address:[address] [place] [address] [id number] Pcp:Regino Coleman MD Subjective: * Chief Complaints: * ??? * Medical History:? Objective: * Vitals:? Assessment: Plan: * Treatment: * Images: * The named appointment provid er may or may not be the originator of this progress note, and it is not deemed complete until electronically signed by the appointment provider. Sign off status: Pending * Provider:Karen Bliss DPM Date:?2023 Generated for Chandler bentley/Brennon/Nirav on:?09/19/2024 06:45 PM EST
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
--- OUTSIDE RECORDS SUMMARY | 2024-09-19 18:45 | XMS_ITS ---
[facility] Address [address] [place] [address] Care Team Providers Care Medicinal Chemist Name Role Phone Regino Coleman MD Primary Care Provider Unavaila ble Black, Aye Unavailable [phone] Allergies Allergen (clinical drug ingredient) Drug/Non Drug Allergy documented on EMR Reaction Allergy Type Onset Date Status fentanyl Fentanyl Unknown Drug Allergy Active REASON FOR VISIT Foot pain Medications Medication SIG (Take, Route, Frequency, Duration) Notes Start Date End Date Status Meloxicam 15 MG 1 tablet Orally Once a day for 30 Not-Taking Amitriptyline HCl No t-Taking Lyrica 100 MG 1 capsule Orally Twice a day Not-Taking Tamoxifen Citrate No t-Taking Fluoxetine Not-Takin g Naproxen 500 MG 1 tablet as needed Orally every 12 hrs Not-Taking Gabapentin Not-Takin g Letrozole 2.5 MG Orally Not -Taking Ammonium Lactate 12 % 1 application Externally Twice a day for 30 days Active Topiramate once a day Not-Taki ng Centrum Active Inderal XL Active traMADol HCl 2x a day prn Acti ve Simvastatin 20 MG 1 tablet in the evening Orally Once a day for 30 day(s) Active Flonase 50 MCG/ACT 1 spray in each nostril Nasally Once a day for 30 day(s) Active Vitamin D3 Active Calcium Active Social History Tobacco Use: Social History Observation [...] Are you an other tobacco user? No Vital Signs Height 5ft3in in 08/17/2024 Weight 138 lbs 08/17/2024 BMI 24.44 kg/m2 08/17/2024 Procedures Procedure Date Ordered Date Performed Result Body Sit e , D0649-MXMPB/INJECT, JOINT/BURSA 08/17/2024 N/A Encounters Encounter Location Date Provider Diagnosis [facility] [address] [place] [address] 08/17/2024 Aye Bliss Primary osteoarthritis, left ankle and foot M19.072 ; Joint pain M25.50 ; Neuralgia and neuritis, unspecified M79.2 ; Hypertrophy of bone, 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 and Pain in left foot M79.672 Assessments Encounter Date Diagnosis (ICD Code) Assessment Notes Treatment Notes Treatment Clinical Notes Section Notes 08/17/2024 Primary osteoarthritis, left ankle and foot (ICD-10 - M19.072) 08/17/2024 Joint pain (ICD-10 - M25.50) 08/17/2024 Neuralgia and neuritis, unspecified (ICD-10 - M79.2) 08/17/2024 Hypertrophy of bone, left ankle and foot (ICD-10 - M89.372) 08/17/2024 Pain in left foot (ICD-10 - M79.672) Plan Of Treatment Pending Test Test Name Order Date , Z0768-IAIZZ/INJECT, JOINT/BURSA 1 10/17/2023 Next Appt Details Follow Up: 4 Months, Reason: Provider Name:Aye Miranda Izaiah , 12/11/2024 08:15:00 AM, [address] [place], [address], Procedure Notes * Category Sub-Category Detail Notes Injection Sm. Joint, Bursa , J0702 In jection sm/med joint bursa/capsule 1cc 1% Xylo.pl + 3mg Celestone utilizing aseptic technique. Post injection instructions reviewed and dispensed , LEFT, I explained that a steroid and local anesthetic injection usually decreases pain and inflammation. I explained the possible complications including but not limited to signs/symptoms of steroid flare, infection, atrophy, discoloration of skin, additional injections may be necessary, change/deviation in toe position. Home Care Instructons: Rest 12-24hrs, Ice 15-20 mins. 3-4 x/24hrs Progress Notes * Ashvin HAHNOB: [birth year] (68 yo F)Acc No.[id number]:08/17/2024 Progress Note Patient:?Rebekah Hahn Provider:?Aye Bliss DPM :1955???Age:68 Y???Sex:Female D ate:08/17/2024 Address:[address] [place], [place] [address] Pcp:Regino Coleman MD Subjective: * Chief Complaints: * ???Foot pain * HPI: ???Foot Pain:?Nature:?aching, tenderness.?Location:?Top, Forefoot, Midfoot, LEFT and most recently inside midfoot left.?Duration:?several years.?Onset:?gradual.?Course:?, worse.?Aggravated:?standing walking any pressure.?Treatments:?innersoles,and biofreeze ,injection therapy,Vionic. , patient states previous conservative therapy has not provided acceptable relief.?Severity/Quality:?moderate.? * ROS:?General/Constitutional:?Nausea?denies.?Vomiting?denies.?Hunger Thirst?denies.?Loss appetite?denies, denies.?Chills?denies, denies.?Fatigue?denies.?Fever?denies, denies.?Night Sweats?admits.?Unexplained weight loss?denies.?Unexplained weight gain?denies.?Ophthalmologic:?Blurred vision?denies.?Red eye?denies.?HEENTM:?Dentures?denies.?Dizziness?denies.?Glasses/contacts?admits.?Retinopathy?de nies.?Blurred/double vision?denies.?TMJ?denies.?Discharge/drainage?denies.?Implants?denies.?Sore throat?denies.?Dental implants?denies.?Hard of hearing ?denies.?Difficulty chewing/swallowing/speaking?denies.?Nose bleeds?denies.?Sore mouth?denies, denies.?Swollen glands?denies.?Respiratory:?On Oxygen?denies.?Pneumonia/pleurisy?denies.?Bronchitis?denies.?Emphysema?denies.?C oughing?denies, denies.?Cough blood?denies.?Shortness of breath?denies, denies.?Wheezing?denies, denies.?Cardiovascular:?Pacemaker?denies.?MVP?admits.?WPW?denies.?CHF?denies.?Heart attack?denies.?Septal defect?denies.?Rapid beat?denies.?Chest pain ?denies, denies.?Atrial Fib.?denies, denies.?Murmur/Palpitations?denies.?Gastrointestinal:?Hemorrhoids?denies.?Stomach/Abdominal pain?denies, denies.?Dark blood stool?denies.?Irritable bowel ?denies.?Constipation?denies.?Diarrhea?denies, denies.?Vomiting?denies.?Hematology:?Swelling?admits.?Clots?denies.?Varicose Veins?denies.?Bruising?denies.?Bleeding problem?denies.?Genitourinary:?Blood urine?denies, denies.?Frequent/Painfu/urination/bladder control?denies, denies.?Kidney stones?denies.?Infection (UTI)?denies.?Nephropathy?denies.?sex trans dis (STD)?denies.?Prostate?denies.?Musculoskeletal:?Hammertoes?denies.?Bunions?admits.?Back Pain?denies.?Muscle Cramps/ Resting?denies.?Muscle cramps / walking?denies.?Generalized aches and pains?admits.?Painful joints?denies.?Swollen joints?denies.?Weakness?denies.?Podiatric:?Comments?See HPI for comments.?Integ.:?Marques?denies.?Scars?denies.?Corns/calluses?denies.?Ingrown nails?denies.?Painful nails?denies.?Open Sores?denies.?Itching?denies.?Rashes?denies, denies.?Neurologic:?Difficulty sleeping?admits.?Brain disorder?denies.?Numbness?denies.?Balance trouble?denies.?Confusion?denies, denies.?Fainting/blackouts?denies.?Headache?denies.?Tingling?denies.?Tremors?den ies.? * Medical History:? * Surgical History:?ovarian liz rgery lumpectomy ankle surgery colonoscopy 08/2017left kidney removed 06/16/18Incisional Hernia repair-daystay 11/29/2019hysterectomy, bladder 11/18/22Hernia Surgery 08/03/23 * Hospitalization/Major Diagno stic Procedure:?[facility] [place] for a day bad reaction to fentanyl when colonoscopy was done 08/2017 * Family History:?Mother: praveen mitchell.?Father: , diagnosed with Other malignant neoplasm of unspecified site.?Paternal aunt: cancer.? * Social History:?Tobacco Use:?Tobacco Use/Smoking?Are you a:?nonsmoker ?Additional Findings: Tobacco Non-User?Current non-smoker ?Tobacco use other than smoking?Are you an other tobacco user??No ???Drugs/Alcohol:?Drugs?Have you used drugs other than those for medical reasons in the past 12 months??No ?Alcohol Screen?Did you have a drink containing alcohol in the past year??Yes ?How often did you have a drink containing alcohol in the past year??Monthly or less (1 point) ?Points?1 ?Interpretation?Negative ???Miscellaneous:?Caffeine: yes, 1 cups per day. ?Children: yes, 2. ?Exercise: yes, occasional, , walking, water aerobics. ?Marital status: . 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 * Medications:?TakingVitamin D 3 Calcium Centrum Simvastatin 20 MG Tablet 1 tablet in the evening Orally Once a dayFlonase 50 MCG/ACT Suspension 1 spray in each nostril Nasally Once a dayInderal XL traMADol HCl 2x a day prnAmmonium Lactate 12 % Cream 1 application Externally Twice a dayTaking Vitamin D3 Taking Calcium Taking Centrum Taking Simvastatin 20 MG Tablet 1 tablet in the evening Orally Once a dayTaking Flonase 50 MCG/ACT Suspension 1 spray in each nostril Nasally Once a dayTaking Inderal XL Taking traMADol HCl 2x a day prnTaking Ammonium Lactate 12 % Cream 1 application Externally Twice a dayNot-Taking/PRNTopiramate , Notes: once a dayGabapentin Letrozole 2.5 MG Tablet Orally Naproxen 500 MG Tablet 1 tablet as needed Orally every 12 hrsAmitriptyline HCl Meloxicam 15 MG Tablet 1 tablet Orally Once a dayTamoxifen Citrate Fluoxetine Lyrica 100 MG Capsule 1 capsule Orally Twice a dayMedication List reviewed and reconciled with the patientNot-Taking/PRN Topiramate , Notes: once a dayNot-Taking/PRN Gabapentin Not-Taking/PRN Letrozole 2.5 MG Tablet Orally Not-Taking/PRN Naproxen 500 MG Tablet 1 tablet as needed Orally every 12 hrsNot-Taking/PRN Amitriptyline HCl Not-Taking/PRN Meloxicam 15 MG Tablet 1 tablet Orally Once a dayNot-Taking/PRN Tamoxifen Citrate Not-Taking/PRN Fluoxetine Not-Taking/PRN Lyrica 100 MG Capsule 1 capsule Orally Twice a dayMedication List reviewed and reconciled with the patient * Allergies:?Fentanylyes[Aller gies Verified] Objective: * Vitals:?Ht: 5ft3in, Wt:138, BMI:24.44, Shoe size:6.5-7, Ht-cm: 160.02 cm, Wt-k.6 kg. * Examination: ???Orthopedic: ?FOOT MORPHOLOGY:?exostosis, midfoot,?Pain on palpation Left edema noted and no erythema POP , , Prominent, painful 1st Met-Cuneiform joint WITH inflammation and POP.?Neurological: ?SENSORY:?pt relates increased?hyperesthesia, increased shooting sensation, midfoot, Neurological exam demonstrates, reduced sharp/dull pin prick discrimination , reduced vibration sensation, 5.07 monofilament test performed at plantar aspects of 5 varied sites per foot shows sensation, reduced , at Forefoot right, , burning, pins and needles sensation?.? Assessment: * Assessment: 1.?Primary osteoarthritis, l eft ankle and foot - M19.072?2.?Neuralgia and neuritis, unspecified - M79.2?3.?Joint pain - M25.50 (Primary)?4.?Hypertrophy of bone, left ankle and foot - M89.372?5.?Pain in left foot - M79.672, Chronic problem, Worse (4)? Plan: * Treatment: * Procedures:?Injection:?Sm. Joint, Bursa?, J07 Injection sm/med joint bursa/capsule 1cc 1% Xylo.pl + 3mg Celestone utilizing aseptic technique. Post injection instructions reviewed and dispensed , LEFT, I explained that a steroid and local anesthetic injection usually decreases pain and inflammation. I explained the possible complications including but not limited to signs/symptoms of steroid flare, infection, atrophy, discoloration of skin, additional injections may be necessary, change/deviation in toe position. Home Care Instructons: Rest 12-24hrs, Ice 15- 20 mins. 3-4 x/24hrs.? * Procedure Codes:?J0702 INJ B ETAMETHSN ACTAT&SOD [id number] DRAIN/INJECT, JOINT/BURSA, Modifiers: XS * Follow Up:?4 Months * Images: * Sign off status: Completed true * Provider:?Aye Bliss DPM Date:?2023 Generated for Chandler bentley/Brennon/Nirav on:?09/19/2024 06:45 PM EST History and Physical Notes * HPI (History of Present Illness) Category Sub-Category Detail Notes Category Not es Foot Pain Nature: aching, tenderness Location: Top, Forefoot, Midfo ot, LEFT and most recently inside midfoot left Duration: several years Onset: gradual Course: , worse Aggravated: standing walking any pressure Treatments: innersoles,and biofr eeze ,injection therapy,Vionic. , patient states previous conservative therapy has not provided acceptable relief Severity/Quality: moderate Examination Category Sub-Category Detail Notes Category Not es Heel Pain INSPECTION REVEALS: Neurological SENSORY: pt relates incre ased hyperesthesia, increased shooting sensation, midfoot, Neurological exam demonstrates, reduced sharp/dull pin prick discrimination , reduced vibration sensation, 5.07 monofilament test performed at plantar aspects of 5 varied sites per foot shows sensation, reduced , at Forefoot right, , burning, pins and needles sensation Orthopedic FOOT MORPHOLOGY: exostosis, midf oot, Pain on palpation Left edema noted and no erythema POP , , Prominent, painful 1st Met-Cuneiform joint WITH inflammation and POP Heel Pain INSPECTION:
--- OUTSIDE RECORDS SUMMARY | 2024-09-19 18:46 | XMS_ITS ---
Author Organization [facility] Address [address] [place] [address] Care Team Providers Care Record Clerk Name Role Phone Regino Coleman MD Primary Care Provider Amilcar Jo [phone] RESULTS Component Value Reference Range Notes Calprotectin, Fecal Reviewed date:07/21/2024 12:26:40 PM Interpretation: Performing Lab:[facility], [address] [place] [id number] Notes/Report: Calprotectin, Fecal 10 Reference Range: <50 Normal 50-120 Borderline >120 Elevated Calprotectin in Crohn's disease and ulcerative colitis can be five to several thousand times above the reference population (50 mcg/g or less). Levels are usually 50 mcg/g or less in healthy patients and with irritable bowel syndrome. Repeat testing in 4-6 weeks is suggested for borderline values. THIS TEST WAS PERFORMED AT: [employer] [address] [place] [address] RAFFY WITT MD,PHD,[facility]RA GI PANEL Reviewed date:07/08/2024 08:13:38 PM Interpretation: Performing Lab:[facility], [address] [place] [phone] Notes/Report: Campylobacter Not Detected Not Detect. Plesiomonas shigelloides Not Detected Not Detect. Salmonella Not Detected Not Detect. Vibrio Not Detected Not Detect. Vibrio Cholerae Not Detected Not Detect. Yersinia enterocolitica Not Detected Not Detect. E. coli EAEC Not Detected Not Detect. E. coli EPEC Not Detected Not Detect. E. coli ETEC Not Detected Not Detect. E. coli STEC Not Detected Not Detect. E. coli O157 Not applicable Not Detect. E. coli containing the O157 antigen are a subset of Shiga-like toxin-producing E. coli (STEC). Shigella sp./EIEC Not Detected Not Detect. Cryptosporidium Not Detected Not Detect. Cyclospora cayetanensis Not Detected Not Detect. Entamoeba histolytica Not Detected Not Detect. Giardia lamblia Not Detected Not Detect. Adenovirus F 40/41 Not Detected Not Detect. Astrovirus Not Detected Not Detect. Norovirus GI/GII Not Detected Not Detect. Rotavirus A Not Detected Not Detect. Sapovirus Not Detected Not Detect. All results must be correlated with clinical findings. Negative results do not exclude the possibility of gastrointestinal infection and should not be used as the sole basis for diagnosis, treatment, or other management decisions. Virus, bacteria, and parasite nucleic acid may persist in vivo independently of organism viability. Additionally, some organisms may be carried symptomatically. Detection of organism targets does not imply that the corresponding organisms are infectious or are the causative agents for clinical symptoms. There is a risk of false negative values due to the presence of sequence variants in the gene targets of the assay, amplification inhibitors in specimens, or inadequate numbers of organisms for amplification. The identification of several diarrheagenic E. coli pathotypes has historically relied upon phenotypic characteristics. This panel targets genetic determinants characteristic of most pathogenic strains, but may not detect all strains having phenotypic characteristics of a pathotype. The performance of this test has not been established for monitoring treatment of infection with any of the panel organisms. This assay is performed by Multiplexed PCR, utilizing the [employer] Array. REASON FOR VISIT still having symptoms PROBLEMS Problem Type ICD Code Onset Dates Problem Status W/U Status Risk SNOMED Code Notes Problem Diarrhea (R19.7) Active confirmed Diarrhea ([id number]) Encounters Encounter Location Date Provider Diagnosis [facility] [address] [place] [address] 07/05/2024 Amilcar Sosa Diarrhea R19.7 ASSESSMENTS Encounter Date Diagnosis Assessment Notes Treatment Notes Treatment Clinical Notes 07/05/2024 Diarrhea (ICD-10 - R19.7) PLAN OF TREATMENT Pending Test Test Name Order Date CRP 07/05/2024 CBC w DIFF 07/05/2024 SED RATE (ESR) 07/05/2024 STOOL WBC 07/05/2024 C DIFFICILE RFLX PCR 07/05/2024 Next Appt Details Provider Name:Amilcar Sosa , 09/28/2024 09:20:00 AM, [address] [place] [address], [address], [place], [address],
--- OUTSIDE RECORDS SUMMARY | 2024-09-19 18:46 | XMS_ITS ---
Author Organization [facility] Address [address] [place] [address] Care Team Providers Care Hatchery Employee Name Role Phone Regino Coleman MD Primary Care Provider Amilcar Jo [phone] REASON FOR VISIT results PROBLEMS Problem Type ICD Code Onset Dates Problem Status W/U Status Risk SNOMED Code Notes Problem Thrombocytosis, unspecified (D75.839) Active confirmed Thrombocytosis (disorder) (7958200) Encounters Encounter Location Date Provider Diagnosis [facility] [address] [place] [address] 07/10/2024 Amilcar Sosa Diarrhea R19.7 and Thrombocytosis, unspecified D75.839 ASSESSMENTS Encounter Date Diagnosis Assessment Notes Treatment Notes Treatment Clinical Notes 07/10/2024 Diarrhea (ICD-10 - R19.7) 07/10/2024 Thrombocytosis, unspecified (ICD-10 - D75.839) PLAN OF TREATMENT Pending Test Test Name Order Date CBC w DIFF 07/10/2024 Next Appt Details Provider Name:Amilcar Sosa , 09/28/2024 09:20:00 AM, [address] [facility] [address], [address], [place], [address],
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
--- OUTSIDE RECORDS SUMMARY | 2024-09-19 18:46 | XMS_ITS ---
Author Organization [facility] Address [address] [place] [address] Care Team Providers Care Forensic Anthropologist Name Role Phone Regino Coleman MD Primary Care Provider Amilcar Jo [phone] Encounters Encounter Location Date Provider Diagnosis [facility] [address] [place] [address] 07/20/2024 Amilcar Sosa PLAN OF TREATMENT Next Appt Details Provider Name:Amilcar Sosa , 09/28/2024 09:20:00 AM, [address], [address], [place], [address],
== END 2024-09-13 13:57 | disposition home or self-care (01) ==
PROVIDERS: PCP Internal Medicine; Visit Provider Orthopaedic Surgery
DX: M18.12 Unilateral primary osteoarthritis of first carpometacarpal joint, left hand (principal); M66.241 Spontaneous rupture of extensor tendons, right hand; M66.242 Spontaneous rupture of extensor tendons, left hand
CPT/HCPCS: 20600; 99213

== ENCOUNTER → 2024-09-13 12:34 | Outpatient (BNVA) | payer MEDICARE, OTHER, SELFPAY | PROVIDERS: PCP Internal Medicine; Visit Provider Orthopaedic Surgery | DX: M18.12 Unilateral primary osteoarthritis of first carpometacarpal joint, left hand (principal); M66.241 Spontaneous rupture of extensor tendons, right hand; M66.242 Spontaneous rupture of extensor tendons, left hand | CPT/HCPCS: 20600; 99212; J1010; J2003 ==

== ENCOUNTER 2024-09-21 14:18 | Outpatient (AMB) | payer MEDICARE, OTHER, SELFPAY ==
--- OUTSIDE RECORDS SUMMARY | 2024-09-21 14:20 | XMS_ITS ---
Author Organization [facility] Address [address] [place] [address] Care Team Providers Care Commercial Real Estate Paralegal Name Role Phone Regino Coleman MD Primary Care Provider Unavaila ble Black, Aye Unavailable [phone] Allergies Allergen (clinical drug ingredient) Drug/Non Drug [...] Date Performed Result Body Sit e , K3260-MCTBV/INJECT, JOINT/BURSA 08/17/2024 N/A Encounters Encounter Location Date Provider Diagnosis [facility] [address] [place] [address] 08/17/2024 Aye Bliss Primary osteoarthritis, left ankle [...] Pending Test Test Name Order Date , G4381-NNIOF/INJECT, JOINT/BURSA 1 10/17/2023 Next Appt Details Follow Up: 4 Months, Reason: Provider Name:Aye Miranda Izaiah , 12/11/2024 08:15:00 AM, [address] [place], [address], Procedure Notes * Category Sub-Category Detail Notes [...] * Ashvin HAHNOB: [birth year] (68 yo F)Acc No.[id number]:08/17/2024 Progress Note Patient:?Rebekah Hahn Provider:?Aye Bliss DPM :1955???Age:68 Y???Sex:Female D ate:08/17/2024 Address:[address] [place], [place] [address] Pcp:Regino Coleman MD Subjective: * Chief Complaints: [...] 11/18/22Hernia Surgery 08/03/23 * Hospitalization/Major Diagno stic Procedure:?[facility] for a day bad reaction to fentanyl [...] * Procedure Codes:?J0702 INJ B ETAMETHSN ACTAT&SOD [id number] DRAIN/INJECT, JOINT/BURSA, Modifiers: XS * Follow Up:?4 Months * Images: * Sign off status: Completed true * Provider:?Aye Bliss DPM Date:?2023 Generated for Chandler bentley/Brennon/Nirav on:?09/21/2024 02:20 PM EST History and Physical Notes * [...]
--- OUTSIDE RECORDS SUMMARY | 2024-09-21 14:20 | XMS_ITS ---
Author Organization [facility] Address [address] [place] [address] Care Team Providers Care Flight Information Expediter Name Role Phone Regino Coleman MD Primary Care Provider Unavaila Aye Chandler [phone] Encounters Encounter Location Date Provider Diagnosis [address] [address] 07/03/2024 Aye Bliss Plan Of Treatment Next Appt Details Provider Name:Aye Bliss , 12/11/2024 08:15:00 AM, [address] [place] [address], [phone], Progress Notes * Alexander HAHNeDOB: [birth year] (68 yo F)Acc No.[id number]:07/03/2024 Progress Note Patient:?Rebekah HAHN Provider:?Aye Bliss DPM :1955???Age:68 Y???Sex:Female D ate:07/03/2024 Address:[address] [place] [address] [place], [phone] Pcp:Regino Coleman MD Subjective: * Chief Complaints: [...]
--- OUTSIDE RECORDS SUMMARY | 2024-09-21 14:21 | XMS_ITS ---
Author Organization [facility] Address [address] [place] [address] Care Team Providers Care Boiler House Supervisor Name Role Phone Regino Coleman MD Primary Care Provider Amilcar Jo [phone] RESULTS Component Value Reference Range Notes Calprotectin, Fecal Reviewed date:07/21/2024 12:26:40 PM Interpretation: Performing Lab:[facility], [address] [place] [phone] Notes/Report: Calprotectin, Fecal 10 Reference Range: <50 [...] borderline values. THIS TEST WAS PERFORMED AT: [facility] [address] [place] [address] RAFFY WITT MD,PHD,CHITRA GI PANEL Reviewed date:07/08/2024 08:13:38 PM Interpretation: Performing Lab:[facility], [address] [place] [phone] Notes/Report: Campylobacter Not Detected Not Detect. Plesiomonas [...] is performed by Multiplexed PCR, utilizing the [employer] Array. REASON FOR VISIT still having symptoms PROBLEMS Problem Type ICD Code Onset Dates Problem Status W/U Status Risk SNOMED Code Notes Problem Diarrhea (R19.7) Active confirmed Diarrhea (90715895) Encounters Encounter Location Date Provider Diagnosis [facility] [address] [place] [address] 07/05/2024 Amilcar Sosa Diarrhea R19.7 ASSESSMENTS Encounter Date Diagnosis Assessment Notes Treatment Notes Treatment Clinical Notes 07/05/2024 Diarrhea (ICD-10 - R19.7) PLAN OF TREATMENT Pending Test Test Name Order Date CRP 07/05/2024 CBC w DIFF 07/05/2024 SED RATE (ESR) 07/05/2024 STOOL WBC 07/05/2024 C DIFFICILE RFLX PCR 07/05/2024 Next Appt Details Provider Name:Amilcar Sosa , 09/28/2024 09:20:00 AM, [address] [place] [address], [address], [place], [address],
--- OUTSIDE RECORDS SUMMARY | 2024-09-21 14:21 | XMS_ITS ---
Author Organization [facility] Address [address] [place] [address] Care Team Providers Care Cyber Intel Planner Name Role Phone Regino Coleman MD Primary Care Provider Amilcar Jo [phone] REASON FOR VISIT results PROBLEMS Problem Type ICD Code Onset Dates Problem Status W/U Status Risk SNOMED Code Notes Problem Thrombocytosis, unspecified (D75.839) Active confirmed Thrombocytosis (disorder) (9775351) Encounters Encounter Location Date Provider Diagnosis [facility] [address] [place] [address] 07/10/2024 Amilcar Sosa Diarrhea R19.7 and Thrombocytosis, unspecified D75.839 ASSESSMENTS Encounter Date Diagnosis Assessment Notes Treatment Notes Treatment Clinical Notes 07/10/2024 Diarrhea (ICD-10 - R19.7) 07/10/2024 Thrombocytosis, unspecified (ICD-10 - D75.839) PLAN OF TREATMENT Pending Test Test Name Order Date CBC w DIFF 07/10/2024 Next Appt Details Provider Name:Amilcar Sosa , 09/28/2024 09:20:00 AM, [address] [facility], [address], [place], [address],
--- OUTSIDE RECORDS SUMMARY | 2024-09-21 14:21 | XMS_ITS | Patient Health Record ---
Author Organization [facility] Address [address] [place] [address] Care Team Providers Care Machine Assembler Supervisor Name Role Phone Regino Coleman MD Primary Care Provider Amilcar Jo [phone] ALLERGIES No Known Allergies RESULTS Component Value Reference Range Notes Immunoglobulin A Reviewed date:01/14/2024 07:20:36 PM Interpretation: Performing Lab:[facility], [address] [place] [phone] Notes/Report: Immunoglobulin A 150 70-320 mg/dL THIS TEST WAS PERFORMED AT: [facility] [employer] [address] [place] [phone] MARI MILLS MD Transglutaminase Ab IgG Reviewed date:01/14/2024 07:20:43 PM Interpretation: Performing Lab:[facility], [address] [place] [phone] Notes/Report: Transglutaminase Ab IgG <1.0 Value Interpretation ----- <15.0 Antibody not detected > or = 15.0 Antibody detected THIS TEST WAS PERFORMED AT: [facility] [address] [place] [phone] MARI MILLS MD Transglutaminase IgA Reviewed date:01/14/2024 07:20:56 PM Interpretation: Performing Lab:[facility], [address] [place] [phone] Notes/Report: Transglutaminase IgA <1.0 Value Interpretation ----- <15.0 Antibody not detected > or = 15.0 Antibody detected THIS TEST WAS PERFORMED AT: [employer] [address] [place] [phone] MARI MILLS MD Gliadin Ab Panel Reviewed date:01/14/2024 07:21:04 PM Interpretation: Performing Lab:[facility], [address] [place] [phone] Notes/Report: Gliadin Deamidated IgA Ab 1.4 Value Interpretation ----- <15.0 Antibody not detected > or = 15.0 Antibody detected Gliadin Deamidated IgG Ab <1.0 Value Interpretation ----- <15.0 Antibody not detected > or = 15.0 Antibody detected THIS TEST WAS PERFORMED AT: [employer] [address] [place] [phone] MARI MILLS MD Endomysial IgA rflx Titer Reviewed date:01/25/2024 12:44:42 PM Interpretation: Performing Lab:[facility], [address] [place] [phone] Notes/Report: Endomysial IgA Antibody Negative Negative THIS TEST WAS PERFORMED AT: [employer] [address] [place] [address] AURORA FORD MD,PHD Endomysial Titer TNP Calprotectin, Fecal Reviewed date:07/21/2024 12:26:40 PM Interpretation: Performing Lab:[facility], [address] [place] [phone] Notes/Report: Calprotectin, Fecal 10 Reference Range: <50 [...] borderline values. THIS TEST WAS PERFORMED AT: [employer] [address] [place] [address] RAFFY WITT MD,PHD,CHITRA GI PANEL Reviewed date:07/08/2024 08:13:38 PM Interpretation: Performing Lab:[facility], [address] [place] [phone] Notes/Report: Campylobacter Not Detected Not Detect. Plesiomonas [...] is performed by Multiplexed PCR, utilizing the [employer] Array. Complete Blood Count Auto Di ff Reviewed date:07/06/2024 12:32:00 PM Interpretation: Performing Lab:[facility], [address] [place] [phone] Notes/Report: White Blood Count 7.2 4.8-10.8 X10*3/uL [...] te Reviewed date:07/06/2024 04:52:01 PM Interpretation: Performing Lab:[facility], [address] [place] [phone] Notes/Report: Erythrocyte Sedimentation Rate 8 0-20 MM/HR Patients with polycythemia and many hemoglobin abnormalities may have depressed sed rates whereas patients with anemia may have elevated sed rates. C Reactive Protein Reviewed date:07/06/2024 04:51:54 PM Interpretation: Performing Lab:[facility], [address] [place] [phone] Notes/Report: C Reactive Protein < 0.10 < or = 0.50 mg/dL Leukocytes Stool Qualitative Reviewed date:07/08/2024 08:12:59 PM Interpretation: Performing Lab:[facility], [address] [place] [phone] Notes/Report: Leukocytes Stool Qualitative NEGATIVE NEGATIVE CDiff Gene PCR Reviewed date:07/08/2024 08:12:52 PM Interpretation: Performing Lab:[facility], [address] [place] [phone] Notes/Report: CDiff Gene PCR NEGATIVE Negative If C. difficile strongly suspected despite one negative test, a second test may be sent vs. empiric treatment for C. difficile infection. Complete Blood Count Auto Di ff Reviewed date:08/01/2024 12:13:53 PM Interpretation: Performing Lab:[facility], [address] [place] [phone] Notes/Report: White Blood Count 7.1 4.8-10.8 X10*3/uL [...] esophagitis presence not specified (K21.9) Active confirmed 620011366 Problem Encounter for screening for malignant neoplasm of colon (Z12.11) Active confirmed 180357916 Problem Encounter for screening for malignant neoplasm of rectum (Z12.12) Active confirmed Screening for malignant neoplasm of rectum (414561264) Problem Constipation, unspecified constipation type (K59.00) Active confirmed 80712001 Problem Blood in stool (K92.1) Active confirmed 36660997 Problem Gastroesophageal reflux disease without esophagitis (K21.9) Active confirmed 310626768 Problem Abdominal pain, left lower quadrant (R10.32) Active confirmed 463932548 Problem Irritable bowel syndrome with constipation (K58.1) Active confirmed Irritable bowel syndrome characterized by constipation (542421186) Problem 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) Active confirmed Pancreatic cyst (07086579) Problem Diarrhea (R19.7) Active confirmed Diarr hea (50243760) Problem Thrombocytosis, unspecified (D75.839) Active confirmed Thrombocytosis (disorder) (6772442) VITAL SIGNS Blood pressure diastolic 00 mm Hg 01/04/2024 Height 64 in 01/04/2024 Blood pressure systolic 00 mm Hg 01/04/2024 Weight 136 lbs 01/04/2024 BMI 23.34 kg/m2 01/04/2024 Encounters Encounter Location Date Provider Diagnosis [facility] [address] [place] [address] 01/04/2024 Amilcar Sosa Constipation, unspecified constipation type K59.00 ; Irritable bowel syndrome with constipation K58.1 ; Encounter for screening for malignant neoplasm of colon Z12.11 and Pancreatic cyst K86.2 [facility] [address] [place] [address] 01/04/2024 Amilcar Sosa [facility] [address] [place] [address] 06/28/2024 Amilcar Sosa [facility] [address] [place] [address] 07/05/2024 Amilcar Sosa Diarrhea R19.7 [facility] [address] [place] [address] 07/10/2024 Amilcar Sosa Diarrhea R19.7 and Thrombocytosis, unspecified D75.839 [facility] [address] [place] [address] 07/20/2024 Amilcar oSsa ASSESSMENTS Encounter Date Diagnosis Assessment Notes Treatment [...] of your next pancreas MRI in the fall PLAN OF TREATMENT Pending Test Test Name Order Date CRP 07/05/2024 CBC w DIFF 07/10/2024 CBC w DIFF 07/05/2024 SED RATE (ESR) 07/05/2024 CELIAC PANEL #10 01/04/2024 STOOL WBC 07/05/2024 C DIFFICILE RFLX PCR 07/05/2024 Future Test Test Name Order Date UPPER GI ENDOSCOPY 07/24/2016 COLONOSCOPY 05/25/2017 Next Appt Details Provider Name:Amilcar Sosa , 09/28/2024 09:20:00 AM, [address] [place] [address], [address], [place], [address], Insurance Providers Payer Name Payer Address Payer Phone Subscriber Number Group Number Insured Name Patient Relationship to Insured Coverage Start Date Coverage End Date MEDICARE OF [place] [address] [facility] [place] [id number] [phone] [id number] CORDELL ORDAZ Self - patient is the insured [employer] ([employer]) [address] [place] [address] [id number] CORDELL ORDAZ Self - patient is the insured MEDICAL (GENERAL) HISTORY Medical History History ICD Code Screening colonoscopy 05-24-2009--negativ e EGD 01-05-2002 and in 11/2016--small HH, n o esophagitis, no Hernandes's Asthma--presently asymptomatic 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 Dillard Mitral valve prolapse Lyme's disease/Fibromyalgia--Amitryptile ne and Gabapentin Migraines-on Propranolol Hyperlipidemia Arthritis in left foot--Meloxicam/Cortis one injections Denies [place],DM,CVA,renal disease Renal cancer with surgery in 06/2018 [...] polyps Left kidney removed for cancer at [facility] by Dr. Corrales 06/2018 Partial hysterectomy and linnea dder suspension with complications of the right ureteral injury that needed stenting, then repeat laparoscopy for internal bleeding 11/18/2022 Incisional hernia repair x 2 in 2020 and 07/2023
--- OUTSIDE RECORDS SUMMARY | 2024-09-21 14:21 | XMS_ITS ---
Author Organization [facility] Address [address] [place] [address] Care Team Providers Care Pan Devulcanizer Helper Name Role Phone Regino Coleman MD Primary Care Provider Amilcar Jo [phone] Encounters Encounter Location Date Provider Diagnosis [facility] [address] [place] [address] 07/20/2024 Amilcar Sosa PLAN OF TREATMENT Next Appt Details Provider Name:Amilcar Sosa , 09/28/2024 09:20:00 AM, [address], [address], [place], [address],
--- OUTSIDE RECORDS SUMMARY | 2024-09-21 14:21 | XMS_ITS | Patient Health Record ---
[facility] Organization [facility] Address [address] [place] [address] Care Team Providers Care Steel Inspector Name Role Phone Regino Coleman MD Primary Care Provider Unavaila ble Black, Aye Unavailable [phone] Allergies Allergen (clinical drug ingredient) Drug/Non Drug [...] Status Risk Notes Problem Acquired hallux valgus (90045604) Hallux valgus (acquired), left foot (M20.12) Active confirmed Problem Plantar wart (88293689) Plantar wart (B07.0) Active confirmed Problem Localized, primary osteoarthritis of the ankle and/or foot (280989140) Primary osteoarthrit is, left ankle and foot (M19.072) Active confirmed Problem Acquired hallux valgus (31935393) Hallux valgus (acquired), right foot (M20.11) Active confirmed Problem Acquired hallux valgus (13998436) Hallux valgus (acquired), left foot (M20.12) Active confirmed Problem Acquired hammer toe of right foot (7247065214707436) Other hammer toe(s) (acquired), right foot (M20.41) Active confirmed Vital Signs Height 5ft3in in 08/17/2024 Weight 138 lbs 08/17/2024 BMI 24.44 kg/m2 08/17/2024 Procedures Procedure Date Ordered Date Performed Result Body Sit e , M6137-YHOFD/INJECT, JOINT/BURSA 11/01/2023 N/A , L2442-AIKTD/INJECT, JOINT/BURSA 02/28/2024 N/A , V4952-PAYLS/INJECT, JOINT/BURSA 08/17/2024 N/A Encounters Encounter Location Date Provider Diagnosis [facility] [address] [place] [address] 11/01/2023 Ayestephen Bliss Primary osteoarthritis, left ankle and foot M19.072 ; Joint pain M25.50 ; Neuralgia and neuritis, unspecified M79.2 ; Hypertrophy of bone, 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 ; Pain in left foot M79.672 ; Bunionette of left foot M21.622 and Xerosis of skin L85.[address] [address] 02/28/2024 Aye Bliss Primary osteoarthritis, left ankle and foot M19.072 ; Joint pain M25.50 ; Neuralgia and neuritis, unspecified M79.2 ; Hypertrophy of bone, 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 ; Pain in left foot M79.672 ; Bunionette of left foot M21.622 and Xerosis of skin L85.[address] [address] 08/17/2024 Aye Black Primary osteoarthritis, left ankle and foot M19.072 ; Joint pain M25.50 ; Neuralgia and neuritis, unspecified M79.2 ; Hypertrophy of bone, 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 and Pain in left foot M79.[address] [address] 06/30/2024 Aye Black Assessments Encounter Date Diagnosis [...] X ray : Foot, right 3V 04/24/2013 60333-Xgvs Destruction, 1-14 02/08/2023 66042-Hkpf Destruction, 1-14 12/08/2021 42962, A9116-LKMHK/INJECT, JOINT/BURSA 0 04/06/2022 34352, S0064-YTEFU/INJECT, JOINT/BURSA 1 61688, V6007-WGARK/INJECT, JOINT/BURSA 0 02/08/2023 33763, Y0786-VAVFW/INJECT, JOINT/BURSA 1 11/02/2019 58611, Z1972-AKFZT/INJECT, JOINT/BURSA 0 01/02/2021 25581, L6142-XRNSH/INJECT, JOINT/BURSA 0 05/05/2021 95019, J3028-QJFPN/INJECT, JOINT/BURSA 1 57843, J0222-OWDTQ/INJECT, JOINT/BURSA 0 12/08/2021 19580, L3927-NPSLT/INJECT, JOINT/BURSA 0 04/08/2016 95854, P9768-DGPVY/INJECT, JOINT/BURSA 0 11/02/2016 20719, Q3222-LKUDN/INJECT, JOINT/BURSA 0 01/26/201752953, H3918-EBJMY/INJECT, JOINT/BURSA 1 11/24/201612212, W2336-DWCFO/INJECT, JOINT/BURSA 0 12/10/2017 33429, V1693-HWEZD/INJECT, JOINT/BURSA 0 03/14/2018 83978, U0582-XIWBT/INJECT, JOINT/BURSA 1 10/29/2017 57054, O8663-YMXWE/INJECT, JOINT/BURSA 0 12/19/2018 52825, I0828-AJTYQ/INJECT, JOINT/BURSA 0 04/20/201992781, U6833-DIYPB/INJECT, JOINT/BURSA 1 10/24/2018, Y7725-QSHWL/INJECT, JOINT/BURSA 0 01/01/2020 60957, M0607-LAQQP/INJECT, JOINT/BURSA 0 06/21/202308869, Y7449-XIRVA/INJECT, JOINT/BURSA 0 11/01/202308791, R1988-PCFTD/INJECT, JOINT/BURSA 0 02/28/202487190, N2126-OGLXB/INJECT, JOINT/BURSA 1 10/17/202386417,A0034-NXX TENDON SHEATH/LIGAMENT 0 05/02/2020 Next Appt Details Provider Name:Aye Bliss , 12/11/2024 08:15:00 AM, [address] [place] [address], [phone], Insurance Providers Payer Name Payer Address Payer Phone Subscriber Number Group Number Insured Name Patient Relationship to Insured Coverage Start Date Coverage End Date Medicare National Govt [facility] [address] [place] [place] [address] [id number] Rebekah Suh Self - patient is the insured [facility] [employer] [address] [place], [place] [id number] Rebekah Suh Self - patient is [...]
--- OUTSIDE RECORDS SUMMARY | 2024-09-21 14:21 | XMS_ITS ---
Author Organization [facility] Address [address] [place] [address] Care Team Providers Care Wood And Hardware Outfitter Name Role Phone Regino Coleman MD Primary Care Provider Unavaila ble Aye Bliss Unavailable [phone] REASON FOR VISIT Reschedule Encounters Encounter Location Date Provider Diagnosis [address] [address] 06/30/2024 Aye Bliss Plan Of Treatment Next Appt Details Provider Name:Aye Bliss , 12/11/2024 08:15:00 AM, [address] [place], [address], Progress Notes * Alexander HAHNeDOB: [birth year] (68 yo F)Acc No.[id number]:06/30/2024 Patient:?Rebekah Hahn :1955???Age:68 Y???Sex:Female Address:[address] [place] [address], [address] * true * Date:? Generated for Printi ng/Famanjulag/eTransmitting on:?09/21/2024 02:20 PM EST
--- NOTE | 2024-09-21 14:24 | A.OFFVIS_ITS ---
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/do not reschedule Metal Model Builder Required: No Information Interpreted: non-clinical & clinical Clinical Resource Coordinator: Clinical Resource Coordinator Present (Elva Beckford OJY) Accompanied by: Self / Same As Patient Allergies fentanyl [FENTANYL] Allergy (Severe, Verified 09/21/24 14:38) SEVERE VOMITING, severe headache, vomiting sulfamethoxazole [From BACTRIM] Allergy (Severe, Verified 09/21/24 14:38) CANNOT TAKE-ONLY HAS ONE KIDNEY trimethoprim [From BACTRIM] Allergy (Severe, Verified 09/21/24 14:38) CANNOT TAKE-ONLY HAS ONE KIDNEY azithromycin [AZITHROMYCIN] Allergy (Intermediate, Verified 09/21/24 14:38) DIARRHEA Post menopausal: Yes HPI Comments Details: Presenting for annual exam. No complaints. 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 History of kidney cancer Chronic kidney disease Migraines Osteoarthritis Fibromyalgia Hypercholesteremia Surgical History History of hernia repair H/O hysterectomy for benign disease Hx of surgical procedure (~08/03/23) H/O vaginal hysterectomy History of incisional hernia repair (~11/29/19) History of nephrectomy, left (~06/2018) Status post biopsy of kidney (~04/2018) History of breast biopsy (~05/11/14) History of tonsillectomy and adenoidectomy S/P removal of left ovary (~1978) History of removal of cyst (~1972) History of ankle surgery (~2003) H/O kidney removal History of breast surgery Hx of tonsillectomy Family History Father Stomach cancer Prostate cancer High cholesterol Sister Stroke Mother High cholesterol CLL (chronic lymphocytic leukemia) Maternal Aunt Breast cancer Social History Household Members: Spouse Housing: House Alcohol intake: current Alcohol intake frequency: holidays/special occasions only Patient Tobacco Use Status: Never used Tobacco Advance Directives Date on File: 07/25/20 service: No Current occupational status: 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 Sexual orientation: Straight/Heterosexual Gender identity: Female Female Reproductive History Menstrual Age of Menarche: 10 Date of Mammogram: 11/18/23 Review of Systems Const All systems reviewed & are unremarkable except as noted in HPI and below Card Reports as per HPI Resp Reports as per HPI GI Reports as per HPI and Reports no additional complaints Reports as per HPI Physical Exam Vital Signs: Last Vital Signs BP 122/76 09/21/24 14:26 BMI result Body Mass Index 23.7 Const General: cooperative, healthy appearing and comfortable Chest Chest palpation & inspection: normal inspection of the chest and normal palpation of entire chest wall Breast/axilla inspection: normal inspection of the breasts and normal inspection of the axillae Breast/axilla palpation: normal palpation of the breasts, normal palpation of the axillae and no axillary lymphadenopathy Resp Effort & Inspection: normal respiratory effort Auscultation: clear to auscultation bilaterally Percussion: percussion normal Cardio Palpation: normal PMI Rate: regular rate Rhythm: regular rhythm Heart sounds: no murmurs and no rubs Peripheral pulses: Peripheral pulses 2+ throughout GI Inspection: Yes normal to inspection Palpation (GI): Soft to palpation, nontender, no guarding, not rigid and No hepatosplenomegaly present Percussion: Yes normal to percussion Auscultation: normal bowel sounds Rectal Exam - Female: deferred General: Yes bladder normal to palpation External Female Exam: No lesion Speculum Exam - Vagina: normal appearance of the vagina, normal palpation, normal vaginal discharge and not erythematous Speculum Exam - Cervix: normal appearance of the cervix and normal palpation Bimanual exam- vagina & uterus: normal bimanual exam, normal palpation, uterine size normal, bladder normal to palpation, consistency normal and normal palpation Bimanual Exam- Adnexa, other: normal adnexae, no masses and no tenderness Assessment & Plan Assessment & Plan (1) Well woman exam: Code(s): Z01.419 - Encounter for gynecological examination (general) (routine) without abnormal findings Category: Medical Plan: Co testing not indicated since the patient 's age is above 65 with no history of abnormal Pap smears last 25 years. Counseled the patient about the recommended dietary allowance of 1200 mg of Calcium & 800 IU of vitamin D. Instructions given to patient to schedule next screening Mammogram in 12/05. Bilateral breasts MRI ordered for 08/04, and to follow up with Dr. Pierce for high-risk breast cancer status The patient was instructed to perform monthly self-breast exams and to schedule a 2 week DEXA scan follow-up appointment and an annual exam in a year; All questions answered and the patient verbalized understanding. Coding Level of Care Code Est Pt Prev Care >65y(28292) Diagnoses Well woman exam Z01.419
[2024-09-21 14:26] VITALS: BP 122/76; BMI 23.7
== END 2024-09-21 15:21 | disposition home or self-care (01) ==
LOC: HO.HWS 14:18
PROVIDERS: PCP Internal Medicine; Visit Provider Obstetrics & Gynecology
DX: Z01.419 Encounter for gynecological examination (general) (routine) without abnormal findings (principal)
CPT/HCPCS: G0101

== ENCOUNTER 2024-09-21 15:06 | Outpatient (REF) | payer MEDICARE, OTHER, SELFPAY ==
[2024-09-21 16:31] LABS: Anion Gap 15 (12-20); Blood Urea Nitrogen 12 mg/dL (9-16); Calcium 9.9 mg/dL (8.4-10.2); Carbon Dioxide 27 mmol/L (22-29); Chloride 108 mmol/L (96-108); Estimated Glomerular Filt Rate 45; Potassium 4.6 mmol/L (3.3-5.1); Sodium 145 mmol/L (135-145)
== END 2024-09-21 15:07 | disposition home or self-care (01) ==
LOC: HO.LAB 15:06
PROVIDERS: PCP Internal Medicine; Visit Provider Internal Medicine Hypertension Specialist
DX: Z01.419 Encounter for gynecological examination (general) (routine) without abnormal findings (principal); N18.30 Chronic kidney disease, stage 3 unspecified
CPT/HCPCS: 36415; 80051; 82310; 82565; 84520; G0101

== ENCOUNTER 2024-09-25 09:50 | Outpatient (AMB) | payer MEDICARE, OTHER, SELFPAY ==
--- OUTSIDE RECORDS SUMMARY | 2024-09-25 09:53 | XMS_ITS ---
Author [facility] Address [address] [place] [address] Care Team Providers Care Gun Tester Name Role Phone Regino Coleman MD Primary Care Provider Unavaila ble Black, Aye Unavailable [phone] Allergies Allergen (clinical drug ingredient) Drug/Non Drug [...] Date Performed Result Body Sit e , A9416-NHCXI/INJECT, JOINT/BURSA 08/17/2024 N/A Encounters Encounter Location Date Provider Diagnosis [facility] [address] [place] [address] 08/17/2024 Aye Bliss Primary osteoarthritis, left ankle [...] Pending Test Test Name Order Date , M2452-VZPTE/INJECT, JOINT/BURSA 1 10/17/2023 Next Appt Details Follow Up: 4 Months, Reason: Provider Name:Aye Miranda Izaiah , 12/11/2024 08:15:00 AM, [address] [place], [address], Procedure Notes * Category Sub-Category Detail Notes [...] * Ashvin HAHNOB: [birth year] (68 yo F)Acc No.[id number]:08/17/2024 Progress Note Patient:?Rebekah Hahn Provider:?Aye Bliss DPM :1955???Age:68 Y???Sex:Female D ate:08/17/2024 Address:[address] [place], [place] [address] Pcp:Regino Coleman MD Subjective: * Chief Complaints: [...] 11/18/22Hernia Surgery 08/03/23 * Hospitalization/Major Diagno stic Procedure:?[facility] for a day bad [...] * Procedure Codes:?J0702 INJ B ETAMETHSN ACTAT&SOD [id number] DRAIN/INJECT, JOINT/BURSA, Modifiers: XS * Follow Up:?4 Months * Images: * Sign off status: Completed true * Provider:?Aye Bliss DPM Date:?2023 Generated for Chandler bentley/Brennon/Nirav on:?09/25/2024 09:52 AM EST History and Physical Notes * HPI [...]
--- OUTSIDE RECORDS SUMMARY | 2024-09-25 09:53 | XMS_ITS | Patient Health Record ---
Author Organization [facility] Address [address] [place] [address] Care Team Providers Care Gun Tester Name Role Phone Regino Coleman MD Primary Care Provider Unavaila ble Black, Aye Unavailable [phone] Allergies Allergen (clinical drug ingredient) Drug/Non Drug [...] Status Risk Notes Problem Acquired hallux valgus (69648970) Hallux valgus (acquired), left foot (M20.12) Active confirmed Problem Plantar wart (45950847) Plantar wart (B07.0) Active confirmed Problem Localized, primary osteoarthritis of the ankle and/or foot (425931588) Primary osteoarthrit is, left ankle and foot (M19.072) Active confirmed Problem Acquired hallux valgus (34566810) Hallux valgus (acquired), right foot (M20.11) Active confirmed Problem Acquired hallux valgus (57714748) Hallux valgus (acquired), left foot (M20.12) Active confirmed Problem Acquired hammer toe of right foot (6763758814243057) Other hammer toe(s) (acquired), right foot (M20.41) Active confirmed Vital Signs Height 5ft3in in 08/17/2024 Weight 138 lbs 08/17/2024 BMI 24.44 kg/m2 08/17/2024 Procedures Procedure Date Ordered Date Performed Result Body Sit e , K6534-AXIRI/INJECT, JOINT/BURSA 11/01/2023 N/A , Z3244-MXCLC/INJECT, JOINT/BURSA 02/28/2024 N/A , V1923-FLTAP/INJECT, JOINT/BURSA 08/17/2024 N/A Encounters Encounter Location Date Provider Diagnosis [facility] [address] [place] [address] 11/01/2023 Ayestephen Bliss Primary osteoarthritis, left ankle and foot M19.072 ; Joint pain M25.50 ; Neuralgia and neuritis, unspecified M79.2 ; Hypertrophy of bone, 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 ; Pain in left foot M79.672 ; Bunionette of left foot M21.622 and Xerosis of skin L85.[address] [address] 02/28/2024 Aye Bliss Primary osteoarthritis, left ankle and foot M19.072 ; Joint pain M25.50 ; Neuralgia and neuritis, unspecified M79.2 ; Hypertrophy of bone, 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 ; Pain in left foot M79.672 ; Bunionette of left foot M21.622 and Xerosis of skin L85.[address] [address] 08/17/2024 Aye Black Primary osteoarthritis, left ankle and foot M19.072 ; Joint pain M25.50 ; Neuralgia and neuritis, unspecified M79.2 ; Hypertrophy of bone, 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 and Pain in left foot M79.[address] [address] 06/30/2024 Aye Black Assessments Encounter Date Diagnosis [...] X ray : Foot, right 3V 04/24/2013 02823-Jcoo Destruction, 1-14 02/08/2023 37799-Wenp Destruction, 1-14 12/08/2021 33612, J3538-JHNRM/INJECT, JOINT/BURSA 0 04/06/2022 94821, X1599-RISTW/INJECT, JOINT/BURSA 1 40718, O8789-EHJQQ/INJECT, JOINT/BURSA 0 02/08/2023 64127, Z7374-JSAXG/INJECT, JOINT/BURSA 1 11/02/2019 68758, K6732-UVUJL/INJECT, JOINT/BURSA 0 01/02/2021 58826, B4030-KRKUV/INJECT, JOINT/BURSA 0 05/05/2021 98792, U4592-LMZGC/INJECT, JOINT/BURSA 1 86451, T5260-OFYLB/INJECT, JOINT/BURSA 0 12/08/2021 60119, T3096-WKQJX/INJECT, JOINT/BURSA 0 04/08/2016 71438, J8450-MCUOS/INJECT, JOINT/BURSA 0 11/02/2016 11840, Q8745-YCPFO/INJECT, JOINT/BURSA 0 01/26/201716529, M4565-GEQVJ/INJECT, JOINT/BURSA 1 11/24/201638633, B9996-ZQNCO/INJECT, JOINT/BURSA 0 12/10/2017 44936, D1786-LIKRW/INJECT, JOINT/BURSA 0 03/14/2018 72398, T8940-JVTCE/INJECT, JOINT/BURSA 1 10/29/2017 21801, D6486-QTYCW/INJECT, JOINT/BURSA 0 12/19/2018 45147, K7091-CYIAD/INJECT, JOINT/BURSA 0 04/20/201979336, V4355-SUNPL/INJECT, JOINT/BURSA 1 10/24/2018, A9192-XHJTL/INJECT, JOINT/BURSA 0 01/01/2020 86270, A8324-EXCFX/INJECT, JOINT/BURSA 0 06/21/202351714, T2154-GKKEO/INJECT, JOINT/BURSA 0 11/01/202395798, B9729-GYPQG/INJECT, JOINT/BURSA 0 02/28/202404927, M4756-CRBES/INJECT, JOINT/BURSA 1 10/17/202357383,U5732-YSM TENDON SHEATH/LIGAMENT 0 05/02/2020 Next Appt Details Provider Name:Aye Bliss , 12/11/2024 08:15:00 AM, [address] [place] [address], [phone], Insurance Providers Payer Name Payer Address Payer Phone Subscriber Number Group Number Insured Name Patient Relationship to Insured Coverage Start Date Coverage End Date Medicare National Govt [employer] [address] [place] [address] [id number] Rebekah Suh Self - patient is the insured [facility] [address] [place], [place] [address] [id number] Rebekah Suh Self - patient is [...]
--- OUTSIDE RECORDS SUMMARY | 2024-09-25 09:53 | XMS_ITS ---
Author Organization [facility] Address [address] [place] [address] Care Team Providers Care Grain Commodity Manager Name Role Phone Regino Coleman MD Primary Care Provider Unavaila Aye Chandler Unavailable [phone] REASON FOR VISIT Reschedule Encounters Encounter Location Date Provider Diagnosis [address] [address] 06/30/2024 Aye Bliss Plan Of Treatment Next Appt Details Provider Name:Aye Bliss , 12/11/2024 08:15:00 AM, [address] [place], [address], Progress Notes * Alexander HAHNeDOB: [birth year] (68 yo F)Acc No.[id number]:06/30[birth year]2024 Patient:?Rebekah Hahn :1955???Age:68 Y???Sex:Female Address:[address] [place] [address], [address] * true * Date:? Generated for Printi ng/Famanjulag/eTransmitting on:?09/25/2024 09:53 AM EST
--- OUTSIDE RECORDS SUMMARY | 2024-09-25 09:53 | XMS_ITS ---
Author Organization [facility] Address [address] [place] [address] Care Team Providers Care Head Grower Name Role Phone Regino Coleman MD Primary Care Provider Unavaila Aye Chandler [phone] Encounters Encounter Location Date Provider Diagnosis [address] [address] 07/03/2024 Aye Bliss Plan Of Treatment Next Appt Details Provider Name:Aye Bliss , 12/11/2024 08:15:00 AM, [address] [place] [address], [address], Progress Notes * Alexander HAHNeDOB: [birth year] (68 yo F)Acc No.[id number]:07/03/2024 Progress Note Patient:?Rebekah HAHN Provider:?Aye Bliss DPM :1955???Age:68 Y???Sex:Female D ate:07/03/2024 Address:[address] [place] [address] [phone] Pcp:Regino Coleman MD Subjective: * Chief Complaints: [...] DPM Date:?2023 Generated for Chandler bentley/Brennon/Nirav on:?09/25/2024 09:53 AM EST
--- OUTSIDE RECORDS SUMMARY | 2024-09-25 09:54 | XMS_ITS ---
Author Organization [facility] Address [address] [place] [address] Care Team Providers Care Director Of Clinical Services Name Role Phone Regino Coleman MD Primary Care Provider Amilcar Jo [phone] Encounters Encounter Location Date Provider Diagnosis [facility] [address] [place] [address] 07/20/2024 Amilcar Sosa PLAN OF TREATMENT Next Appt Details Provider Name:Amilcar Sosa , 09/28/2024 09:20:00 AM, [address], [address], [place], [address],
--- OUTSIDE RECORDS SUMMARY | 2024-09-25 09:54 | XMS_ITS ---
Author Organization [facility] Address [address] [place] [address] Care Team Providers Care Avionics Shop Supervisor Name Role Phone Regino Coleman MD Primary Care Provider Amilcar Jo [phone] REASON FOR VISIT results PROBLEMS Problem Type ICD Code Onset Dates Problem Status W/U Status Risk SNOMED Code Notes Problem Thrombocytosis, unspecified (D75.839) Active confirmed Thrombocytosis (disorder) (2492523) Encounters Encounter Location Date Provider Diagnosis [facility] [address] [place] [address] 07/10/2024 Amilcar Sosa Diarrhea R19.7 and Thrombocytosis, unspecified D75.839 ASSESSMENTS Encounter Date Diagnosis Assessment Notes Treatment Notes Treatment Clinical Notes 07/10/2024 Diarrhea (ICD-10 - R19.7) 07/10/2024 Thrombocytosis, unspecified (ICD-10 - D75.839) PLAN OF TREATMENT Pending Test Test Name Order Date CBC w DIFF 07/10/2024 Next Appt Details Provider Name:Amilcar Sosa , 09/28/2024 09:20:00 AM, [address] [facility], [address], [place], [address],
--- OUTSIDE RECORDS SUMMARY | 2024-09-25 09:54 | XMS_ITS | Patient Health Record ---
Author Organization [facility] Address [address] [place] [address] Care Team Providers Care Asbestos Wire Finisher Name Role Phone Regino Coleman MD Primary Care Provider Amilcar Jo [phone] ALLERGIES No Known Allergies RESULTS Component Value Reference Range Notes Immunoglobulin A Reviewed date:01/14/2024 07:20:36 PM Interpretation: Performing Lab:[facility], [address] [place] [phone] Notes/Report: Immunoglobulin A 150 70-320 mg/dL THIS TEST WAS PERFORMED AT: [facility] [address] [place] [phone] MARI MILLS MD Transglutaminase Ab IgG Reviewed date:01/14/2024 07:20:43 PM Interpretation: Performing Lab:[facility], [address] [place] [phone] Notes/Report: Transglutaminase Ab IgG <1.0 Value Interpretation ----- <15.0 Antibody not detected > or = 15.0 Antibody detected THIS TEST WAS PERFORMED AT: [facility] [address] [place] [phone] MARI MILLS MD Transglutaminase IgA Reviewed date:01/14/2024 07:20:56 PM Interpretation: Performing Lab:[facility], [address] [place] [phone] Notes/Report: Transglutaminase IgA <1.0 Value Interpretation ----- <15.0 Antibody not detected > or = 15.0 Antibody detected THIS TEST WAS PERFORMED AT: [facility] [address] [place] [phone] MARI MILLS MD Gliadin Ab Panel Reviewed date:01/14/2024 07:21:04 PM Interpretation: Performing Lab:[facility], [address] [place] [phone] Notes/Report: Gliadin Deamidated IgA Ab 1.4 Value Interpretation ----- <15.0 Antibody not detected > or = 15.0 Antibody detected Gliadin Deamidated IgG Ab <1.0 Value Interpretation ----- <15.0 Antibody not detected > or = 15.0 Antibody detected THIS TEST WAS PERFORMED AT: [facility] [address] [place] [phone] MARI MILLS MD Endomysial IgA rflx Titer Reviewed date:01/25/2024 12:44:42 PM Interpretation: Performing Lab:[facility], [address] [place] [phone] Notes/Report: Endomysial IgA Antibody Negative Negative THIS TEST WAS PERFORMED AT: [employer]/[facility] [address] [place] [address] AURORA FORD MD,PHD Endomysial Titer TNP Calprotectin, Fecal Reviewed date:07/21/2024 12:26:40 PM Interpretation: Performing Lab:[facility], [address] [place] [phone] Notes/Report: Calprotectin, Fecal 10 Reference Range: <50 [...] borderline values. THIS TEST WAS PERFORMED AT: [employer]/[facility] [address] [place] [address] RAFFY WITT MD,PHD,CHITRA GI PANEL Reviewed date:07/08/2024 08:13:38 PM Interpretation: Performing Lab:[facility], [address] [place] [phone] Notes/Report: Campylobacter Not Detected Not Detect. Plesiomonas [...] is performed by Multiplexed PCR, utilizing the [employer] Array. Complete Blood Count Auto Di ff Reviewed date:07/06/2024 12:32:00 PM Interpretation: Performing Lab:[facility], [address] [place] [phone] Notes/Report: White Blood Count 7.2 4.8-10.8 X10*3/uL [...] te Reviewed date:07/06/2024 04:52:01 PM Interpretation: Performing Lab:[facility], [address] [place] [phone] Notes/Report: Erythrocyte Sedimentation Rate 8 0-20 MM/HR Patients with polycythemia and many hemoglobin abnormalities may have depressed sed rates whereas patients with anemia may have elevated sed rates. C Reactive Protein Reviewed date:07/06/2024 04:51:54 PM Interpretation: Performing Lab:[facility], [address] [place] [phone] Notes/Report: C Reactive Protein < 0.10 < or = 0.50 mg/dL Leukocytes Stool Qualitative Reviewed date:07/08/2024 08:12:59 PM Interpretation: Performing Lab:[facility], [address] [place] [phone] Notes/Report: Leukocytes Stool Qualitative NEGATIVE NEGATIVE CDiff Gene PCR Reviewed date:07/08/2024 08:12:52 PM Interpretation: Performing Lab:[facility], [address] [place] [phone] Notes/Report: CDiff Gene PCR NEGATIVE Negative If C. difficile strongly suspected despite one negative test, a second test may be sent vs. empiric treatment for C. difficile infection. Complete Blood Count Auto Di ff Reviewed date:08/01/2024 12:13:53 PM Interpretation: Performing Lab:[facility], [address] [place] [phone] Notes/Report: White Blood Count 7.1 4.8-10.8 X10*3/uL [...] esophagitis presence not specified (K21.9) Active confirmed 226423358 Problem Encounter for screening for malignant neoplasm of colon (Z12.11) Active confirmed 697013277 Problem Encounter for screening for malignant neoplasm of rectum (Z12.12) Active confirmed Screening for malignant neoplasm of rectum (512892698) Problem Constipation, unspecified constipation type (K59.00) Active confirmed 70688615 Problem Blood in stool (K92.1) Active confirmed 59305440 Problem Gastroesophageal reflux disease without esophagitis (K21.9) Active confirmed 957375142 Problem Abdominal pain, left lower quadrant (R10.32) Active confirmed 510241284 Problem Irritable bowel syndrome with constipation (K58.1) Active confirmed Irritable bowel syndrome characterized by constipation (874740097) Problem 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) Active confirmed Pancreatic cyst (75338309) Problem Diarrhea (R19.7) Active confirmed Diarr hea (82288848) Problem Thrombocytosis, unspecified (D75.839) Active confirmed Thrombocytosis (disorder) (4637267) VITAL SIGNS Blood pressure diastolic 00 mm Hg 01/04/2024 Height 64 in 01/04/2024 Blood pressure systolic 00 mm Hg 01/04/2024 Weight 136 lbs 01/04/2024 BMI 23.34 kg/m2 01/04/2024 Encounters Encounter Location Date Provider Diagnosis [facility] [address] [place] [address] 01/04/2024 Amilcar Sosa Constipation, unspecified constipation type K59.00 ; Irritable bowel syndrome with constipation K58.1 ; Encounter for screening for malignant neoplasm of colon Z12.11 and Pancreatic cyst K86.2 [facility] [address] [place] [address] 01/04/2024 Amilcar Sosa [facility] [address] [place] [address] 06/28/2024 Amilcar Sosa [facility] [address] [place] [address] 07/05/2024 Amilcar Sosa Diarrhea R19.7 [facility] [address] [place] [address] 07/10/2024 Amilcar Sosa Diarrhea R19.7 and Thrombocytosis, unspecified D75.839 [facility] [address] [place] [address] 07/20/2024 Amilcar Sosa ASSESSMENTS Encounter Date Diagnosis [...] Provider Name:Amilcar Sosa , 09/28/2024 09:20:00 AM, [address] [place] [address], [address], [place], [address], Insurance Providers Payer Name Payer Address Payer Phone Subscriber Number Group Number Insured Name Patient Relationship to Insured Coverage Start Date Coverage End Date MEDICARE OF [place] [address] [facility] [place] [id number] CORDELL ORDAZ Self - patient is the insured [employer] ([employer]) [address] [place] [address] [phone] [id number] CORDELL ORDAZ Self - patient is the insured MEDICAL (GENERAL) HISTORY Medical History History ICD Code Screening colonoscopy 05-24-2009--negativ e EGD 01-05-2002 and in 11/2016--small HH, n o esophagitis, no Hernandes's Asthma--presently asymptomatic 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 Dillard Mitral valve prolapse Lyme's disease/Fibromyalgia--Amitryptile ne and Gabapentin Migraines-on Propranolol Hyperlipidemia Arthritis in left foot--Meloxicam/Cortis one injections Denies CO,DM,CVA,renal disease Renal cancer with surgery in 06/2018 [...] polyps Left kidney removed for cancer at [facility] by Dr. Corrales 06/2018 Partial hysterectomy and linnea dder suspension with complications of the right ureteral injury that needed stenting, then repeat laparoscopy for internal bleeding 11/18/2022 Incisional hernia repair x 2 in 2020 and 07/2023
--- OUTSIDE RECORDS SUMMARY | 2024-09-25 09:54 | XMS_ITS ---
Author Organization [facility] Address [address] [place] [address] Care Team Providers Care Presiding Judge Name Role Phone Regino Coleman MD Primary Care Provider Amilcar Jo [phone] RESULTS Component Value Reference Range Notes Calprotectin, Fecal Reviewed date:07/21/2024 12:26:40 PM Interpretation: Performing Lab:[facility], [address] [place] [phone] Notes/Report: Calprotectin, Fecal 10 Reference Range: <50 [...] borderline values. THIS TEST WAS PERFORMED AT: [employer]/[facility] [address] [place] [address] RAFFY WITT MD,PHD,CHITRA GI PANEL Reviewed date:07/08/2024 08:13:38 PM Interpretation: Performing Lab:[facility], [address] [place] [phone] Notes/Report: Campylobacter Not Detected Not Detect. Plesiomonas [...] is performed by Multiplexed PCR, utilizing the [employer] Array. REASON FOR VISIT still having symptoms PROBLEMS Problem Type ICD Code Onset Dates Problem Status W/U Status Risk SNOMED Code Notes Problem Diarrhea (R19.7) Active confirmed Diarrhea (05506849) Encounters Encounter Location Date Provider Diagnosis [facility] [address] [place] [address] 07/05/2024 Amilcar Sosa Diarrhea R19.7 ASSESSMENTS Encounter Date Diagnosis Assessment Notes Treatment Notes Treatment Clinical Notes 07/05/2024 Diarrhea (ICD-10 - R19.7) PLAN OF TREATMENT Pending Test Test Name Order Date CRP 07/05/2024 CBC w DIFF 07/05/2024 SED RATE (ESR) 07/05/2024 STOOL WBC 07/05/2024 C DIFFICILE RFLX PCR 07/05/2024 Next Appt Details Provider Name:Amilcar Sosa , 09/28/2024 09:20:00 AM, [address] [place] [address], [address], [place], [address],
[2024-09-25 10:14] VITALS: BP 126/82; PULSE 82; O2SAT 97; BMI 23.9
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
== END 2024-09-25 10:26 | disposition home or self-care (01) ==
PROVIDERS: PCP Internal Medicine; Visit Provider Internal Medicine Hypertension Specialist
DX: N18.2 Chronic kidney disease, stage 2 (mild) (principal); Z90.5 Acquired absence of kidney
CPT/HCPCS: 99214

== ENCOUNTER → 2024-09-25 09:50 | Outpatient (BNVA) | payer MEDICARE, OTHER, SELFPAY | PROVIDERS: PCP Internal Medicine; Visit Provider Internal Medicine Hypertension Specialist | DX: N18.30 Chronic kidney disease, stage 3 unspecified (principal); Z90.5 Acquired absence of kidney | CPT/HCPCS: 99212 ==

== ENCOUNTER 2024-11-23 13:36 | Outpatient (REF) | payer MEDICARE, OTHER, SELFPAY ==
--- OUTSIDE RECORDS SUMMARY | 2024-11-23 13:45 | XMS_ITS | Encounter Summary ---
Author Organization [facility] Address [address] [place] [address] Phone Care Team Providers Care Cst Name Role Phone Regino Coleman MD Primary Care Provider [phone] Encounter Details Date Type Department Care Team (Late st Contact Info) Description 01/06/2023 Telephone [facility] [address] [place] [address] Ying Medrano Social History Tobacco Use Types Packs/Day Years Used Date Smoking Tobacco: Never Smokeless Tobacco: Never Alcohol Use Standard Drinks/Week Comments Yes 0 (1 standard drink = 0.6 oz pure alcohol) Alcoholic Drinks/day: Occasional social drink Comments Unknown Sex and Gender Information Value Date Recorded Sex Assigned at Not on file Legal Sex Female 4:53 PM EST Gender Identity Not on file Sexual Orientation Not on file documented as of this encounter Miscellaneous Notes * Telephone Encounter - Ying Beltran - 01/08/2023 9:07 AM EDT Called pt, advised I can cx appt w/ [facility] and fax order to [facility] and they will call and book sooner appt. 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 Pls advise if you would like her school supervisor to do US or move forward with the hospital. Her school supervisor does not have a radiology department. * Telephone Encounter - Ying Medrano - 01/06/2023 9:51 AM EDT PT says she has renal ultrasound scheduled for 03/01/23. PT wants to be seen sooner, she is asking for an earlier appointment and is willing to commute to [place] if she can get a sooner appointment. documented in this encounter Plan of Treatment Not on file documented as of this encounter Visit Diagnoses Not on filedocumented in this encounter Care Teams Cst Relationship Specialty Start Date End Date Regino Coleman MD [address] [place] [address] DR[address] [place] PCP - General 10/21/20 documented as of this encounter
--- OUTSIDE RECORDS SUMMARY | 2024-11-23 13:45 | XMS_ITS ---
Author Organization [facility] Address [address] [place] [address] Care Team Providers Care Chiropractic Teacher Name Role Phone Regino Coleman MD Primary Care Provider Unavaila Aye Chandler [phone] Encounters Encounter Location Date Provider Diagnosis [address] [address] 07/03/2024 Aye Bliss Plan Of Treatment Next Appt Details Provider Name:Aye Bliss , 12/11/2024 08:15:00 AM, [address] [place] [address], [address], Progress Notes * Alexander HAHNeDOB: [birth year] (68 yo F)Acc No.[id number]:07/03/2024 Progress Note Patient:?Rebekah HAHN Provider:?Aye Bliss DPM :1955???Age:68 Y???Sex:Female D ate:07/03/2024 Address:[address] [place] [address] [place], [place] Pcp:Regino Coleman MD Subjective: * Chief Complaints: [...] Bliss DPM Date:?2023 Generated for Chandler bentley/Brennon/Nirav on:?11/23/2024 01:45 PM EST
--- OUTSIDE RECORDS SUMMARY | 2024-11-23 13:45 | XMS_ITS ---
Author Organization [facility] Address [address] [place] [address] Care Team Providers Care Associate Professor Of History Name Role Phone Regino Coleman MD Primary Care Provider Amilcar Jo [phone] Encounters Encounter Location Date Provider Diagnosis [facility] [address] [place] [address] 07/20/2024 Amilcar Sosa PLAN OF TREATMENT Next Appt Details Provider Name:Amilcar Sosa , 09/27/2025 09:00:00 AM, [address], [address], [place], [address],
--- OUTSIDE RECORDS SUMMARY | 2024-11-23 13:45 | XMS_ITS | Encounter Summary ---
Author Organization [facility] Address [address] [place] [address] Phone Care Team Providers Care Real Estate Intern Name Role Phone Regino Coleman MD Primary Care Provider [phone] Encounter Details Date Type Department Care Team (Late st Contact Info) Description 11/25/2022 Telephone [facility] [address] [place] [address] Ying Medrano Social History Tobacco [...] * Telephone Encounter - Ying Beltran - 2022 10:14 AM EST Pls advise * Telephone Encounter - Ying Medrano - 11/25/2022 3:43 PM EST This PT called to relay that Dr. Reyes from [facility] had recently put a stent in this PT's urethra from Kidney to bladder. She wanted to relay incase Dr. Rebolledo would like to review what was done. PT also relayed that as of yesterday she has been experiencing back pain which she worries could be kidney related. documented in this encounter Plan of Treatment Not on file documented as of this encounter Visit Diagnoses Not on filedocumented in this encounter Care Teams Real Estate Intern Relationship Specialty Start Date End Date Regino Coleman MD [address] [place] PCP - General 10/21/20 documented as of this encounter
--- OUTSIDE RECORDS SUMMARY | 2024-11-23 13:46 | XMS_ITS ---
Author Organization [facility] Address [address] [place] [address] Care Team Providers Care Cook Helper Juice Name Role Phone Regino Coleman MD Primary Care Provider Unavaila Aye Chandler Unavailable [phone] REASON FOR VISIT Reschedule Encounters Encounter Location Date Provider Diagnosis [address] [address] 06/30/2024 Aye Bliss Plan Of Treatment Next Appt Details Provider Name:Aye Bliss , 12/11/2024 08:15:00 AM, [address] [place], [address], Progress Notes * Alexander HAHNeDOB: [birth year] (68 yo F)Acc No.[id number]:06/30/2024 Patient:?Rebekah Hahn :1955???Age:68 Y???Sex:Female Address:[address] [place] [address], [address] * true * Date:? Generated for Jaii mc/Brennon/eTransmitting on:?11/23/2024 01:45 PM EST
--- OUTSIDE RECORDS SUMMARY | 2024-11-23 13:46 | XMS_ITS ---
Author [facility] Address [address] [place] [address] Care Team Providers Care Fibreglass Lay Up Worker Name Role Phone Regino Coleman MD Primary Care Provider Unavaila ble Black, Aye Unavailable [phone] Allergies Allergen (clinical drug ingredient) Drug/Non Drug [...] Date Performed Result Body Sit e , W0346-IOOUC/INJECT, JOINT/BURSA 08/17/2024 N/A Encounters Encounter Location Date Provider Diagnosis [facility] [place] [address] [place] [address] 08/17/2024 Aye Bliss Primary osteoarthritis, left ankle [...] Pending Test Test Name Order Date , O5244-EDWXI/INJECT, JOINT/BURSA 1 10/17/2023 Next Appt Details Follow Up: 4 Months, Reason: Provider Name:Aye Miranda Izaiah , 12/11/2024 08:15:00 AM, [address] [place], [address], Procedure Notes * Category Sub-Category Detail Notes [...] * Ashvin HAHNOB: [birth year] (68 yo F)Acc No.[id number]:08/17/2024 Progress Note Patient:?Rebekah Hahn Provider:?Aye Bliss DPM :1955???Age:68 Y???Sex:Female D ate:08/17/2024 Address:[address] [place], [place] [address] Pcp:Regino Coleman MD Subjective: * Chief Complaints: [...] 11/18/22Hernia Surgery 08/03/23 * Hospitalization/Major Diagno stic Procedure:?[facility] for a day bad reaction to [...] * Procedure Codes:?J0702 INJ B ETAMETHSN ACTAT&SOD [id number] DRAIN/INJECT, JOINT/BURSA, Modifiers: XS * Follow Up:?4 Months * Images: * Sign off status: Completed true * Provider:?Aye Bliss DPM Date:?2023 Generated for Chandler bentley/Brennon/Nirav on:?11/23/2024 01:46 PM EST History and Physical Notes * [...]
--- OUTSIDE RECORDS SUMMARY | 2024-11-23 13:46 | XMS_ITS | Patient Health Record ---
Author Organization [facility] Address [address] [place] [address] Care Team Providers Care Waste Recycler Name Role Phone Regino Coleman MD Primary Care Provider Unavaila ble Black, Aye Unavailable [phone] Allergies Allergen (clinical drug ingredient) Drug/Non Drug [...] Status Risk Notes Problem Acquired hallux valgus (51695558) Hallux valgus (acquired), left foot (M20.12) Active confirmed Problem Plantar wart (30986595) Plantar wart (B07.0) Active confirmed Problem Localized, primary osteoarthritis of the ankle and/or foot (098364496) Primary osteoarthrit is, left ankle and foot (M19.072) Active confirmed Problem Acquired hallux valgus (14879575) Hallux valgus (acquired), right foot (M20.11) Active confirmed Problem Acquired hallux valgus (17653082) Hallux valgus (acquired), left foot (M20.12) Active confirmed Problem Acquired hammer toe of right foot (8646261625739162) Other hammer toe(s) (acquired), right foot (M20.41) Active confirmed Vital Signs Height 5ft3in in 08/17/2024 Weight 138 lbs 08/17/2024 BMI 24.44 kg/m2 08/17/2024 Procedures Procedure Date Ordered Date Performed Result Body Sit e , C5441-ESCBN/INJECT, JOINT/BURSA 02/28/2024 N/A , N4719-FIACC/INJECT, JOINT/BURSA 08/17/2024 N/A Encounters Encounter Location Date Provider Diagnosis [facility] [place] [address] [place] [address] 02/28/2024 Aye Black Primary osteoarthritis, left ankle and foot M19.072 ; Joint pain M25.50 ; Neuralgia and neuritis, unspecified M79.2 ; Hypertrophy of bone, 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 ; Pain in left foot M79.672 ; Bunionette of left foot M21.622 and Xerosis of skin L85.[address] [facility] [address] 08/17/2024 Aye Bliss Primary osteoarthritis, left ankle and foot M19.072 ; Joint pain M25.50 ; Neuralgia and neuritis, unspecified M79.2 ; Hypertrophy of bone, 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 and Pain in left foot M79.[address] [address] 06/30/2024 Aye Bliss Assessments Encounter Date Diagnosis (ICD Code) Assessment Notes Treatment Notes Treatment Clinical Notes Section Notes 02/28/2024 Primary osteoarthritis, left ankle and foot (ICD-10 - M19.072) 08/17/2024 Primary osteoarthritis, left ankle and foot (ICD-10 - M19.072) 08/17/2024 Neuralgia and neuritis, unspecified (ICD-10 - M79.2) 08/17/2024 Joint pain (ICD-10 - M25.50) 02/28/2024 Neuralgia and neuritis, unspecified (ICD-10 - M79.2) 02/28/2024 Joint pain (ICD-10 - M25.50) 02/28/2024 Hypertrophy of bone, left ankle and foot (ICD-10 - M89.372) 08/17/2024 Hypertrophy of bone, left ankle and foot (ICD-10 - M89.372) 08/17/2024 Pain in left foot (ICD-10 - M79.672) 02/28/2024 Pain in left foot (ICD-10 - M79.672) 02/28/2024 Bunionette of left foot (ICD-10 - M21.622) 02/28/2024 Xerosis of skin (ICD-10 - L85.3) Response to treatment - Improvement Plan Of Treatment Pending Test Test Name Order Date Tc99 3 phase Bone Scan 04/03/2016 X ray : Foot, left 3V 04/24/2013 X ray : Foot, right 3V 04/24/2013 56800-Hpyc Destruction, 1-14 02/08/2023 19683-Kvxt Destruction, 1-14 12/08/2021 08049, I4494-TWTGC/INJECT, JOINT/BURSA 0 04/06/2022 52573, M6350-DUDKI/INJECT, JOINT/BURSA 1 92584, Y3494-CWGXU/INJECT, JOINT/BURSA 0 02/08/2023 79014, N5902-NPXXS/INJECT, JOINT/BURSA 1 11/02/2019 24581, V1608-CZSOF/INJECT, JOINT/BURSA 0 01/02/2021 41030, G8149-EYLUP/INJECT, JOINT/BURSA 0 05/05/2021 54673, Y6347-CNGSK/INJECT, JOINT/BURSA 1 66890, N3537-TEKCY/INJECT, JOINT/BURSA 0 12/08/202149762, Y9956-GMNWO/INJECT, JOINT/BURSA 0 04/08/2016 44603, H3884-JEYCY/INJECT, JOINT/BURSA 0 11/02/2016 12403, E3688-AKNDZ/INJECT, JOINT/BURSA 0 01/26/201769960, F2231-BPJZN/INJECT, JOINT/BURSA 1 11/24/2016 60191, Z4711-MCRMU/INJECT, JOINT/BURSA 0 12/10/2017 54270, W8592-XWSWU/INJECT, JOINT/BURSA 0 03/14/2018 08314, L4618-OAVMK/INJECT, JOINT/BURSA 1 10/29/2017 07073, N0971-ZQVCF/INJECT, JOINT/BURSA 0 12/19/2018 23481, Y4926-GKVYL/INJECT, JOINT/BURSA 0 04/20/201972035, S2290-IIQLX/INJECT, JOINT/BURSA 1 10/24/2018 47796, L2681-CUAYI/INJECT, JOINT/BURSA 0 01/01/2020 46895, S8276-VVTZO/INJECT, JOINT/BURSA 0 06/21/2023 54623, B8704-YVPJA/INJECT, JOINT/BURSA 0 11/01/2023 97138, F0960-ASHYH/INJECT, JOINT/BURSA 0 02/28/2024 87511, P7691-DWTLW/INJECT, JOINT/BURSA 1 10/17/2023 42797,O1544-UMO TENDON SHEATH/LIGAMENT 0 05/02/2020 Next Appt Details Provider Name:Aye Bliss , 12/11/2024 08:15:00 AM, [address] [facility], [place], [address], Insurance Providers Payer Name Payer Address Payer Phone Subscriber Number Group Number Insured Name Patient Relationship to Insured Coverage Start Date Coverage End Date Medicare National Govt [employer] [address] [place] [address] [phone] [id number] Rebekah Suh Self - patient is the insured [employer]) [address] [place] [address] [phone] [id number] Rebekah Suh Self - patient is [...] Hernia Surgery 08/03/23 Hospitalization History Reason Date(Month/Year) [facility] for a day bad reaction to fentanyl w hen colonoscopy was done 08/2017
--- OUTSIDE RECORDS SUMMARY | 2024-11-23 13:46 | XMS_ITS ---
Author Organization [facility] Address [address] [place] [address] Care Team Providers Care Branch Administrator Name Role Phone Regino Coleman MD Primary Care Provider Amilcar Jo Unavailable [phone] ALLERGIES No Known Allergies REASON FOR VISIT Patient presents today for a pancreatic cyst MEDICATIONS Medication SIG (Take, Route, Frequency, Duration) Notes Start Date End Date Status Multivitamin Active Flonase Active Calcium 1200 mg/100D3 Twice a day Active Prilosec 20 MG 2 capsules Orally On ce a day Active traMADol HCl 50 MG TAKE 1 TABLET BY ADITHYA TH TWICE DAILY NEEDED FOR MODERATE PAIN Oral for 15 Active Propranolol HCl 10 MG 1 tablet Orally on ce a day Active Albuterol Sulfate HFA 108 (90 Base) MCG/ACT 1 puff as needed Inhalation every 4 hrs Active MiraLax Active Metamucil Active Alendronate Sodium 70 MG Oral for 84 Active Atorvastatin Calcium 20 MG TAKE 1 TABLET BY MOUTH AT BEDTIME Oral for 90 Active SOCIAL HISTORY Sex Assigned At : Social History Observation Description Sex Assigned At Unknown Alcohol Screen Question Answer Notes Did you have a drink containing alcohol in the p ast year? No Points 0 Interpretation Negative VITAL SIGNS BMI 23.34 kg/m2 09/28/2024 Blood pressure systolic 00 mm Hg 09/28/20 24 Blood pressure diastolic 00 mm Hg 024 Height 64 in 09/28/2024 Weight 136 lbs 09/28/2024 Encounters Encounter Location Date Provider Diagnosis [facility] [address] [place] [address] 09/28/2024 Amilcar Sosa Gastroesophageal ref lux disease, esophagitis presence not specified K21.9 ; Irritable bowel syndrome with constipation K58.1 ; Encounter for screening for malignant neoplasm of colon Z12.11 ; Constipation, unspecified constipation type K59.00 and Pancreatic cyst K86.2 ASSESSMENTS Encounter Date Diagnosis Assessment Notes Treatment Notes Treatment Clinical Notes 09/28/2024 Gastroesophageal reflux disease, esophagitis presence not specified (ICD-10 - K21.9) 09/28/2024 Irritable bowel syndrome with constipation (ICD-10 - K58.1) 09/28/2024 Encounter for screening for malignant neoplasm of colon (ICD-10 - Z12.11) Repeat colonoscopy in 202609/28/2024 Constipation, unspecified constipation type (ICD-10 - K59.00) For the constipation: Increase the Metamucil to 2 pills twice a day with a lot of water. Double up on the Miralax. High fiber diet with a lot of water 09/28/2024 Pancreatic cyst (ICD-10 - K86.2) Need MRI report from [facility] from 06/2024 PLAN OF TREATMENT Treatment Notes Assessment Notes Encounter for screening for malignant neoplasm of colon Repeat colonoscopy in 2026 Constipation, unspecified constipation t ype For the constipation: Increase the Metamucil to 2 pills twice a day with a lot of water. Double up on the Miralax. High fiber diet with a lot of water Pancreatic cyst Need MRI report from [facility] from 06/2024 Next Appt Details Follow Up: 1 Year, Reason: Provider Name:Amilcar Sosa , 09/27/2025 09:00:00 AM, [address] [facility], [address], [place], [address], Progress Notes * Examination Category Sub-Category Detail Notes General Examination GENERAL APPEARANCE: pleasant , well nourished, well developed, in no acute distress HEAD: EYES: sclera non-icteric EARS: NOSE: THROAT: NECK/THYROID: no cervical lymphade nopathy, neck supple HEART: S1, S2 normal CHEST: LUNGS: clear to auscultatio n bilaterally ABDOMEN: normal bowel sounds, no guarding or rigidity, no guarding or rigidity, no masses palpable, soft, nontender, nondistended NEUROLOGIC: alert and oriented SKIN: nonjaundiced, no spi luz angiomata EXTREMITIES: no edema PERIPHERAL PULSES: BACK: BREASTS: MUSCULOSKELETAL: MALE GENITOURINARY: LYMPH NODES: RECTAL EXAM: FEMALE GENITOURINARY: ORAL CAVITY: mucosa moist
--- OUTSIDE RECORDS SUMMARY | 2024-11-23 13:46 | XMS_ITS ---
Author Organization [facility] Address [address] [place] [address] Care Team Providers Care Public Accountant Name Role Phone Regino Coleman MD Primary Care Provider Amilcar Jo Unavailable [phone] REASON FOR VISIT advise her of her gallstones Encounters Encounter Location Date Provider Diagnosis [facility] [address] [place] [address] 09/28/2024 Amilcar Sosa PLAN OF TREATMENT Next Appt Details Provider Name:Amilacr Sosa , 09/27/2025 09:00:00 AM, [address], [address], [place], [address],
--- OUTSIDE RECORDS SUMMARY | 2024-11-23 13:46 | XMS_ITS | Clinical Summary ---
Author Organization [facility] Address [address] [place] [address] Care Team Providers Care Missile Tracking Technician Name Role Phone Regino Coleman MD Primary Care Provider [phone] Allergies Active Allergy Reactions Criticality Noted Date Comments Fentanyl Other (see comments) 05/24/2018 Medications Multiple Vitamin (MULTIVITAMIN ADULT PO) Take 1 capsule by mouth 1 (one) time each day Active acetaminophen (TYLENOL) 325 MG tablet Take 650 mg by mouth every 6 (six) hours if needed 8 Active Calcium Carbonate-Vitam in D (calcium-vitami n D) 500-200 MG-UNIT tablet Take 1 tablet by mouth 1 (one) time each day Active albuterol HFA (PROVENTIL HFA;VENTOLIN HFA) 108 (90 Base) MCG/ACT inhaler Active simvastatin (ZOCOR) 20 MG tablet Take 1 tablet by mouth 1 (one) time each day Active propranolol (INDERAL) 10 MG tablet Take 1 tablet by mouth 1 (one) time each day Active fluticasone (FLONASE) 50 MCG/ACT nasal spray Administer 1 spray into affected nostril(s) daily Active traMADol (ULTRAM) 50 MG tablet Take 50 mg by mouth every 6 (six) hours if needed 2 Active omeprazole OTC (PriLOSEC OTC) 20 MG EC tablet Take 20 mg by mouth 1 (one) time each day 2 Active Active Problems Problem Noted Date Diagnosed Date Total nephrectomy 05/15/2021 Chronic kidney disease stage 3 05/15/2021 Personal history of kidney cancer 06/16/2018 Overview (08/14/2021): Last Assessment & Plan: Assessment: ??Rebekah Hahn is a 64 y.o. female who is 2 years status post a left laparoscopic radical nephrectomy (06/16/18) for the management of pT3a N0 chromophobe renal cell carcinoma. ??She has no evidence of disease recurrence based on surveillance imaging (May 2020 and June 2020). Her renal function is diminished but stable. ?? Plan: ?? 1. We spoke about the results of the surveillance imaging, which demonstrates no evidence of disease recurrence.?? 2. Return in 1 year with repeat surveillance imaging consisting of chest X-ray and MRI abdomen. She will also have her renal function assessed at that time with a basic metabolic panel. Renal mass 05/30/2018 Overview (05/15/2021): Last Assessment & Plan: Assessment: Rebekah Hahn is a 62 y.o. female with a recent diagnosis of a left renal mass concerning for renal cell carcinoma. A renal mass biopsy was equivocal for kidney cancer. The available imaging suggests organ confined disease. She has good performance status and normal renal function. Plan: 1. I spent this consultation with Rebekah Hahn discussing the natural history and management of small renal masses. Based on the imaging characteristics and its size (4.6 cm), there is a 85-90% probability that the mass harbors cancer. The prior renal mass biopsy was interpreted as chromophobe renal cell carcinoma initially though review of the pathology by [facility], Department of Pathology suggests that it may be an oncocytic renal neoplasm. Regardless, I explained that the available imaging shows no concern for locally advanced or metastatic disease. A have recommended a chest X-ray to complete a staging workup. 2. Despite the equivocal diagnosis from the renal mass biopsy, I feel that it is appropriate to discuss intervention for the left renal mass because even if this mass represents a benign oncocytoma, those tumors are associated with malignancy in approximately 5% of cases. We discussed the role and rationale for extirpative surgery, which is the standard of care. With respect to surgery, we discussed the use of a partial and radical nephrectomy, as well as open and minimally invasive approaches. The risks of surgery including bleeding, infection, injury to surrounding structure, failure to cure, renal insufficiency, urinary extravasation, deep venous thrombosis, pulmonary embolism, stroke, heart attack, and loss of life were discussed. Given the highly endophytic nature of the tumor coupled with the very normal appearance of the contralateral kidney, I feel that the elevated risks of a partial nephrectomy do not outweigh the benefits and thus I recommend a laparoscopic left radical nephrectomy for management. 3. I explained that we could proceed with a left laparoscopic radical nephrectomy. The patient is most comfortable proceeding with the above procedure and that will be scheduled on the next available date. Immunizations Name Administration Dates Next Due Maichang SARS-COV-2 12/14/2020 eTect SARS-COV-2 08/06/2021 Pneumococcal Conjugate 13-Valent 12/29/2019 Family History Medical History Relation Comments Cancer Father prostate & gastr ic Relation Status Comments Father Mother Alive Social History Tobacco Use Types Packs/Day Years Used Date Smoking Tobacco: Never Smokeless Tobacco: Never Tobacco Cessation:Counseling Given: Not Answered Alcohol Use Standard Drinks/Week Comments Yes 0 (1 standard drink = 0.6 oz pure alcohol) Alcoholic Drinks/day: Occasional social drink Comments Unknown Sex and Gender Information Value Date Recorded Sex Assigned at Not on file Legal Sex Female 4:53 PM EST Gender Identity Not on file Sexual Orientation Not on file Last Filed Vital Signs Vital Sign Reading Time Taken Comments Blood Pressure 122/80 03/15/2023 2:24 PM EDT Pulse 65 03/15/2023 2:24 PM EDT Temperature - - Respiratory Rate - - Oxygen Saturation 98% 09/14/2022 4:01 PM EST Inhaled Oxygen Concentration - - Weight 62.3 kg (137 lb 6.4 oz) 01/04/2023 3:21 P M EDT Height 160 cm (5' 3 ) 01/04/2023 3:21 PM EDT Body Mass Index 24.34 01/04/2023 3:21 PM EDT Plan of Treatment Health Maintenance Due Date Last Done Comments Breast Cancer Screening 1955 Colorectal Cancer Screening: Annual FOBT 2003 Colorectal Cancer Screening: Colonoscopy 2003 Colorectal Cancer Screening: Sigmoidoscopy 2003 Pneumococcal Vaccine: 65+ Ye ars (2 of 2 - PPSV23 or PCV20) 02/23/2020 12/29/2019 Influenza Vaccine (#1) 2024 Hepatitis B Vaccine Aged Out No longe r eligible based on patient's age to complete this topic Insurance MEDICARE [facility] MEDICARE FOR[facility]LY [facility] Care Teams Missile Tracking Technician Relationship Specialty Start Date End Date Regino Coleman MD [address] [place] PCP - General 10/21/20
== END 2024-11-23 13:37 | disposition home or self-care (01) ==
LOC: HO.MAMMO 13:36
PROVIDERS: PCP Internal Medicine; Visit Provider Internal Medicine
DX: Z12.31 Encounter for screening mammogram for malignant neoplasm of breast (principal)
CPT/HCPCS: 77063; 77067

== ENCOUNTER → 2024-11-23 13:45 | Outpatient (BNV) | payer MEDICARE, OTHER, SELFPAY | PROVIDERS: PCP Internal Medicine; Visit Provider Internal Medicine | DX: Z12.31 Encounter for screening mammogram for malignant neoplasm of breast (principal) | CPT/HCPCS: 77063; 77067 ==

== ENCOUNTER 2024-12-06 09:06 | Outpatient (AMB) | payer MEDICARE, OTHER, SELFPAY ==
--- NOTE | 2024-12-06 09:07 | A.OFFVIS_ITS ---
Vital Signs 12/06/24 09:08 Height 5 ft 3 in Weight 138 lb 8 oz BMI 24.5 BP 141/64 H Blood Pressure Location Rt brachial Position Sitting Pulse 79 Intake Visit Reasons: yearly breast exam Intake Note: This patient presents for yearly breast examination. Pt c/o; report no breast complaints at this time. 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: No Accompanied by: Self / Same As Patient Allergies fentanyl [FENTANYL] Allergy (Severe, Verified 12/06/24 09:14) SEVERE VOMITING, severe headache, vomiting sulfamethoxazole [From BACTRIM] Allergy (Severe, Verified 12/06/24 09:14) CANNOT TAKE-ONLY HAS ONE KIDNEY trimethoprim [From BACTRIM] Allergy (Severe, Verified 12/06/24 09:14) CANNOT TAKE-ONLY HAS ONE KIDNEY azithromycin [AZITHROMYCIN] Allergy (Intermediate, Verified 12/06/24 09:14) DIARRHEA Medication List - Last Reconciled 12/06/24 by Regino Pierce MD albuterol sulfate 90 mcg/actuation 2 puffs PO DAILY PRN alendronate 70 mg PO QWEEK atorvastatin (Lipitor) 20 mg PO DAILY calcium carbonate-vitamin D3 500 mg-3.125 mcg (125 unit) 1 tab PO DAILY cefuroxime axetil 500 mg PO BID 10 days dicyclomine 20 mg PO TID PRN metronidazole 500 mg PO BID 10 days hyllovhwwsse-xmjnifhb-phroto 1 tab PO DAILY omeprazole magnesium (Prilosec OTC) 20 mg PO DAILY polyethylene glycol 3350 (Miralax) 17 grams PO DAILY propranolol 10 mg PO DAILY psyllium husk (Metamucil) 0.4 grams PO DAILY tramadol 50 mg PO BID PRN HPI HPI yearly breast exam: Details: She is here for a history of LCIS of the right breast in 2013. She denies any palpable breast masses. She feels well overall. She had a mammogram last and this was unremarkable. She had completed a 5 year course of letrozole in 2019. She continues to follow with Dr. Dillard. She complains of chronic back pain. She says she is also going to have bladder surgery for prolapse next month. 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 History of kidney cancer Chronic kidney disease Migraines Osteoarthritis Fibromyalgia Hypercholesteremia Surgical History History of hernia repair H/O hysterectomy for benign disease Hx of surgical procedure (~08/03/23) H/O vaginal hysterectomy History of incisional hernia repair (~11/29/19) History of nephrectomy, left (~06/2018) Status post biopsy of kidney (~04/2018) History of breast biopsy (~05/11/14) History of tonsillectomy and adenoidectomy S/P removal of left ovary (~1978) History of removal of cyst (~1972) History of ankle surgery (~2003) H/O kidney removal History of breast surgery Hx of tonsillectomy Family History Father Stomach cancer Prostate cancer High cholesterol Sister Stroke Mother High cholesterol CLL (chronic lymphocytic leukemia) Maternal Aunt Breast cancer Social History Household Members: Spouse Housing: House Alcohol intake: current Alcohol intake frequency: holidays/special occasions only Patient Tobacco Use Status: Never used Tobacco Advance Directives Date on File: 07/25/20 service: No Current occupational status: 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 Sexual orientation: Straight/Heterosexual Gender identity: Female Female Reproductive History Menstrual Age of Menarche: 10 Review of Systems Const Denies chills and Denies fever(s) Card Denies chest pain, Denies dyspnea and Denies dyspnea on exertion Resp Denies cough, Denies dyspnea and Denies dyspnea on exertion GI Denies hematochezia and Denies change in bowel habits Denies hematuria Musc Reports back pain, Reports arthralgias and Denies limited range of motion Neuro Denies focal weakness and Denies convulsions Psych Denies depression and Denies mood swings Physical Exam Vital Signs: Last Vital Signs Pulse 79 12/06/24 09:08 BP 141/64 H 12/06/24 09:08 BMI result Body Mass Index 24.5 Const General: comfortable and no acute distress Orientation/consciousness: patient oriented x3 Neck Neck: Yes no lymphadenopathy Chest Other: No palpable breast masses, no nipple or skin changes, no axillary lymphadenopathy Resp Auscultation: clear to auscultation bilaterally Cardio Rhythm: regular rhythm GI Palpation (GI): Soft to palpation, nontender and no guarding Neuro General: patient oriented x3 Assessment & Plan Assessment & Plan (1) 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 There were no palpable breast masses or any suggestion of axillary lymphadenopathy I have reviewed her mammogram from November 23, 2024. This is unremarkable I reminded her to continue with her MRI alternating with her mammograms every 6 months I will see her in the office in about a year. She can also follow up with me on a p.r.n. basis. 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
[2024-12-06 09:08] VITALS: BP 141/64; PULSE 79; BMI 24.5
--- OUTSIDE RECORDS SUMMARY | 2024-12-06 09:59 | XMS_ITS | Encounter Summary ---
Author Organization [facility] Address [address] [place] [address] Phone Care Team Providers Care Vmware Architect Name Role Phone Regino Coleman MD Primary Care Provider Encounter Details Date Type Department Care Team (Late st Contact Info) Description 11/25/2022 Telephone [facility] [address] [place] [address] Ying Medrano Social History Tobacco [...] called to relay that Dr. Reyes from [facility] had recently put a stent in [...] on filedocumented in this encounter Care Teams Vmware Architect Relationship Specialty Start Date End Date Regino Coleman MD [address] [place] PCP - General 10/21/20 documented as of this encounter
--- OUTSIDE RECORDS SUMMARY | 2024-12-06 09:59 | XMS_ITS | Patient Health Record ---
Author Organization [facility] Address [address] [place] [address] Care Team Providers Care Grip Assembler Name Role Phone Regino Coleman MD Primary Care Provider Amilcar Jo Unavailable [phone] ALLERGIES No Known Allergies RESULTS Component Value Reference Range Notes Calprotectin, Fecal Reviewed date:07/21/2024 12:26:40 PM Interpretation: Performing Lab:[facility], [address] [place] [phone] Notes/Report: Calprotectin, Fecal 10 Reference Range: <50 [...] borderline values. THIS TEST WAS PERFORMED AT: [facility] [address] [place] [address] RAFFY WITT MD,PHD,CHITRA GI PANEL Reviewed date:07/08/2024 08:13:38 PM Interpretation: Performing Lab:[address] [phone] Notes/Report: Campylobacter Not Detected Not Detect. Plesiomonas [...] is performed by Multiplexed PCR, utilizing the [employer] Array. Immunoglobulin A Reviewed date:01/14/2024 07:20:36 PM Interpretation: Performing Lab:[address] [address] Notes/Report: Immunoglobulin A 150 70-320 mg/dL THIS TEST WAS PERFORMED AT: [facility] [address] [place] [phone] MARI MILLS MD Transglutaminase Ab IgG Reviewed date:01/14/2024 07:20:43 PM Interpretation: Performing Lab:[address] [address] Notes/Report: Transglutaminase Ab IgG <1.0 Value Interpretation ----- <15.0 Antibody not detected > or = 15.0 Antibody detected THIS TEST WAS PERFORMED AT: [facility] [address] [place] [phone] MARI MILLS MD Transglutaminase IgA Reviewed date:01/14/2024 07:20:56 PM Interpretation: Performing Lab:[facility], [address] [place] [phone] Notes/Report: Transglutaminase IgA <1.0 Value Interpretation ----- <15.0 Antibody not detected > or = 15.0 Antibody detected THIS TEST WAS PERFORMED AT: [facility] [address] [place] [phone] MARI MILLS MD Gliadin Ab Panel Reviewed date:01/14/2024 07:21:04 PM Interpretation: Performing Lab:[facility], [address] [place] [phone] Notes/Report: Gliadin Deamidated IgA Ab 1.4 Value Interpretation ----- <15.0 Antibody not detected > or = 15.0 Antibody detected Gliadin Deamidated IgG Ab <1.0 Value Interpretation ----- <15.0 Antibody not detected > or = 15.0 Antibody detected THIS TEST WAS PERFORMED AT: [facility] [address] [place] [phone] MARI MILLS MD Endomysial IgA rflx Titer Reviewed date:01/25/2024 12:44:42 PM Interpretation: Performing Lab:[address] [phone] Notes/Report: Endomysial IgA Antibody Negative Negative THIS TEST WAS PERFORMED AT: [facility] [id number] [place] [phone] AURORA FORD MD,PHD Endomysial Titer TNP Complete Blood Count Auto Di ff Reviewed date:07/06/2024 12:32:00 PM Interpretation: Performing Lab:[facility], [address] [place] [phone] Notes/Report: White Blood Count 7.2 4.8-10.8 X10*3/uL [...] te Reviewed date:07/06/2024 04:52:01 PM Interpretation: Performing Lab:[facility], [address] [place] [phone] Notes/Report: Erythrocyte Sedimentation Rate 8 0-20 MM/HR Patients with polycythemia and many hemoglobin abnormalities may have depressed sed rates whereas patients with anemia may have elevated sed rates. C Reactive Protein Reviewed date:07/06/2024 04:51:54 PM Interpretation: Performing Lab:[facility], [address] [place] [phone] Notes/Report: C Reactive Protein < 0.10 < or = 0.50 mg/dL Leukocytes Stool Qualitative Reviewed date:07/08/2024 08:12:59 PM Interpretation: Performing Lab:[facility], [address] [place] [phone] Notes/Report: Leukocytes Stool Qualitative NEGATIVE NEGATIVE CDiff Gene PCR Reviewed date:07/08/2024 08:12:52 PM Interpretation: Performing Lab:[facility], [address] [place] [phone] Notes/Report: CDiff Gene PCR NEGATIVE Negative If C. difficile strongly suspected despite one negative test, a second test may be sent vs. empiric treatment for C. difficile infection. Complete Blood Count Auto Di ff Reviewed date:08/01/2024 12:13:53 PM Interpretation: Performing Lab:[facility], [address] [place] [phone] Notes/Report: White Blood Count 7.1 4.8-10.8 X10*3/uL [...] Calcium 1200 mg/100D3 Twice a day Active Propranolol HCl 10 MG 1 tablet Orally on ce a day Active Albuterol Sulfate HFA 108 (90 Base) MCG/ACT 1 puff as needed Inhalation every 4 hrs Active MiraLax Active Metamucil Active Alendronate Sodium 70 MG Oral for 84 Active Atorvastatin Calcium 20 MG TAKE 1 TABLET BY MOUTH AT BEDTIME Oral for 90 Active Prilosec 20 MG 2 capsules Orally [...] W/U Status Risk SNOMED Code Notes Problem Encounter for screening for malignant neoplasm of colon (Z12.11) Active confirmed 038131263 Problem Diarrhea (R19.7) Active confirmed Diarr hea (58672200) Problem Encounter for screening for malignant neoplasm of rectum (Z12.12) Active confirmed Screening for malignant neoplasm of rectum (256183172) Problem Blood in stool (K92.1) Active confirmed 87274060 Problem Gastroesophageal reflux disease without esophagitis (K21.9) Active confirmed 090698006 Problem Gastroesophageal reflux disease, esophagitis presence not specified (K21.9) Active confirmed 043897097 Problem 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) Active confirmed Pancreatic cyst (48219934) Problem Constipation, unspecified constipation type (K59.00) Active confirmed 37404533 Problem Abdominal pain, left lower quadrant (R10.32) Active confirmed 946668063 Problem Irritable bowel syndrome with constipation (K58.1) Active confirmed Irritable bowel syndrome characterized by constipation (863153861) Problem Thrombocytosis, unspecified (D75.839) Active confirmed Thrombocytosis (disorder) (1660581) VITAL SIGNS Blood pressure diastolic 00 mm Hg 09/28/2024 Height 64 in 09/28/2024 Blood pressure systolic 00 mm Hg 09/28/2024 Weight 136 lbs 09/28/2024 BMI 23.34 kg/m2 09/28/2024 Encounters Encounter Location Date Provider Diagnosis [facility] [address] [place] [phone] 01/04/2024 Amilcar Sosa Constipation, unspec ified constipation type K59.00 ; Irritable bowel syndrome with constipation K58.1 ; Encounter for screening for malignant neoplasm of colon Z12.11 and Pancreatic cyst K86.2 [facility] [address] [place] [address] 09/28/2024 Amilcar Sosa Gastroesophageal ref lux disease, esophagitis presence not specified K21.9 ; Irritable bowel syndrome with constipation K58.1 ; Encounter for screening for malignant neoplasm of colon Z12.11 ; Constipation, unspecified constipation type K59.00 and Pancreatic cyst K86.2 [facility] [address] [place] [address] 09/28/2024 Amilcar Sosa [facility] [address] [place] [address] 01/04/2024 Amilcar Sosa [facility] [address] [place] [address] 06/28/2024 Amilcar Sosa [facility] [address] [place] [address] 07/05/2024 Amilcar Sosa Diarrhea R19.7 [facility] [address] [place] [address] 07/10/2024 Amilcar Sosa Diarrhea R19.7 and Thrombocytosis, unspecified D75.839 [facility] [address] [place] [address] 07/20/2024 Amilcar Sosa ASSESSMENTS Encounter Date Diagnosis [...] syndrome with constipation (ICD-10 - K58.1) 09/28/2024 Gastroesophageal reflux disease, esophagitis presence not specified (ICD-10 - K21.9) 09/28/2024 Irritable bowel syndrome with constipation (ICD-10 - K58.1) 07/05/2024 Diarrhea (ICD-10 - R19.7) 07/10/2024 Diarrhea (ICD-10 - R19.7) 07/10/2024 Thrombocytosis, unspecified (ICD-10 - D75.839) 01/04/2024 Encounter for screening for malignant neoplasm of colon (ICD-10 - Z12.11) Colonoscopy in 202609/28/2024 Encounter for screening for malignant neoplasm of colon (ICD-10 - Z12.11) Repeat colonoscopy in 202601/04/2024 Pancreatic cyst (ICD-10 - K86.2) Have them send me a copy of your next pancreas MRI in the Fall of 202309/28/2024 Constipation, unspecified constipation type (ICD-10 - K59.00) For the constipation: Increase the Metamucil to 2 pills twice a day with a lot of water. Double up on the Miralax. High fiber diet with a lot of water 09/28/2024 Pancreatic cyst (ICD-10 - K86.2) Need MRI report from [facility] from 06/2024 PLAN OF TREATMENT Pending Test Test Name Order Date CRP 07/05/2024 CBC w DIFF 07/10/2024 CBC w DIFF 07/05/2024 SED RATE (ESR) 07/05/2024 CELIAC PANEL #10 01/04/2024 STOOL WBC 07/05/2024 C DIFFICILE RFLX PCR 07/05/2024 Future Test Test Name Order Date UPPER GI ENDOSCOPY 07/24/2016 COLONOSCOPY 05/25/2017 Next Appt Details Provider Name:Amilcar Sosa , 09/27/2025 09:00:00 AM, [address], [address], [place], [address], Insurance Providers Payer Name Payer Address Payer Phone Subscriber Number Group Number Insured Name Patient Relationship to Insured Coverage Start Date Coverage End Date MED[place]ARE [place] [address] [place] [address] [id number] CORDELL ORDAZ Self - patient is the insured [employer] (Interventional Spine) [address] [place] [id number] CORDELL ORDAZ Self - patient is the insured MEDICAL (GENERAL) HISTORY Medical History History ICD Code Screening colonoscopy 05-24-2009--negativ e EGD 01-05-2002 and in 11/2016--small HH, n o esophagitis, no Hernandes's Asthma--presently asymptomatic 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 Dillard Mitral valve prolapse Lyme's disease/Fibromyalgia--Amitryptile ne and Gabapentin Migraines-on Propranolol Hyperlipidemia Arthritis in left foot--Meloxicam/Cortis one injections Denies SC,DM,CVA,renal disease Renal cancer with surgery in 06/2018 [...] polyps Left kidney removed for cancer at [facility] by Dr. Corrales 06/2018 Partial hysterectomy and linnea dder suspension with complications of the right ureteral injury that needed stenting, then repeat laparoscopy for internal bleeding 11/18/2022 Incisional hernia repair x 2 in 2020 and 07/2023
--- OUTSIDE RECORDS SUMMARY | 2024-12-06 09:59 | XMS_ITS | Encounter Summary ---
Author Organization [facility] Address [address] [place] [address] Phone Care Team Providers Care Portal Architect Name Role Phone Regino Coleman MD Primary Care Provider [phone] Encounter Details Date Type Department Care Team (Late st Contact Info) Description 01/06/2023 Telephone [facility] [address] [place] [address] Ying Medrano Social History Tobacco [...] appt w/ [facility] and [place] [facility] [place] and book sooner appt. Pt stated that she is going to see her hay sorter in 2 weeks and her MD stated she will do th US in office. Pls advise if you would like her hay sorter to do US or move forward with the hospital. Her hay sorter does not have a radiology department. * Telephone Encounter - Ying Medrano - 01/06/2023 9:51 AM EDT PT says she has renal ultrasound scheduled for 03/01/23. PT wants to be seen sooner, she is asking for an earlier appointment and is willing to commute to [place] if she can get a sooner appointment. documented in this encounter Plan of Treatment Not on file documented as of this encounter Visit Diagnoses Not on filedocumented in this encounter Care Teams Portal Architect Relationship Specialty Start Date End Date Regino Coleman MD [address] [place] [address] DRIVE [address] [place] PCP - General 10/21/20 documented as of this encounter
--- OUTSIDE RECORDS SUMMARY | 2024-12-06 10:00 | XMS_ITS ---
Author Organization [facility] Address [address] [place] [address] Care Team Providers Care Bss Solution Architect Name Role Phone Regino Coleman MD Primary Care Provider Unavaila ble Black, Aye Unavailable [phone] Allergies Allergen (clinical drug ingredient) Drug/Non Drug [...] Date Performed Result Body Sit e , L0989-NXZGP/INJECT, JOINT/BURSA 08/17/2024 N/A Encounters Encounter Location Date Provider Diagnosis [facility] [address] [place] [address] 08/17/2024 Aye Bliss Primary osteoarthritis, left ankle [...] Pending Test Test Name Order Date , L6722-NKVJP/INJECT, JOINT/BURSA 1 10/17/2023 Next Appt Details Follow Up: 4 Months, Reason: Provider Name:Aye Miranda Izaiah , 12/11/2024 08:15:00 AM, [address] [place], [address], Procedure Notes * Category Sub-Category Detail Notes [...] * Ashvin HAHNOB: [birth year] (68 yo F)Acc No.[id number]:08/17/2024 Progress Note Patient:?Rebekah Hahn Provider:?Aye Bliss DPM :1955???Age:68 Y???Sex:Female D ate:08/17/2024 Address:[address] [place], [place] [address] Pcp:Regino Coleman MD Subjective: * Chief Complaints: [...] 11/18/22Hernia Surgery 08/03/23 * Hospitalization/Major Diagno stic [place] [place] to fentanyl [...] * Procedure Codes:?J0702 INJ B ETAMETHSN ACTAT&SOD [id number] DRAIN/INJECT, JOINT/BURSA, Modifiers: XS * Follow Up:?4 Months * Images: * Sign off status: Completed true * Provider:?Aye Bliss DPM Date:?2023 Generated for Chandler bentley/Brennon/Nirav on:?12/06/2024 10:00 AM EST History and Physical Notes * [...]
--- OUTSIDE RECORDS SUMMARY | 2024-12-06 10:00 | XMS_ITS ---
Author Organization [facility] Address [address] [place] [address] Care Team Providers Care Director Inbound Sales Name Role Phone Regino Coleman MD Primary Care Provider Amilcar Jo Unavailable [phone] REASON FOR VISIT advise her of her gallstones Encounters Encounter Location Date Provider Diagnosis [facility] [address] [place] [address] 09/28/2024 Amilcar Sosa PLAN OF TREATMENT Next Appt Details Provider Name:Amilcar Sosa , 09/27/2025 09:00:00 AM, [address], [address], [place], [address],
--- OUTSIDE RECORDS SUMMARY | 2024-12-06 10:00 | XMS_ITS ---
Author Organization [facility] Address [address] [place] [address] Care Team Providers Care Cylinder Honer Name Role Phone Regino Coleman MD Primary Care Provider Unavaila Aye Chandler [phone] Encounters Encounter Location Date Provider Diagnosis [address] [address] 07/03/2024 Aye Bliss Plan Of Treatment Next Appt Details Provider Name:Aye Bliss , 12/11/2024 08:15:00 AM, [address] [place] [address], [phone], Progress Notes * Alexander HAHNeDOB: [birth year] (69 yo F)Acc No.[id number]:07/03/2024 Progress Note Patient:?Rebekah HAHN Provider:?Aye Bliss DPM :1955???Age:68 Y???Sex:Female D ate:07/03/2024 Address:[address] [place] [address] [place], [phone] Pcp:Regino Coleman MD Subjective: * Chief Complaints: [...] DPM Date:?2023 Generated for Chandler bentley/Brennon/Nirav on:?12/06/2024 09:59 AM EST
--- OUTSIDE RECORDS SUMMARY | 2024-12-06 10:00 | XMS_ITS ---
Author Organization [facility] Address [address] [place] [address] Care Team Providers Care Form Setter/Driver Name Role Phone Regino Coleman MD Primary Care Provider Amilcar Jo [phone] Encounters Encounter Location Date Provider Diagnosis [facility] [address] [place] [address] 07/20/2024 Amilcar Sosa PLAN OF TREATMENT Next Appt Details Provider Name:Amilcar Sosa , 09/27/2025 09:00:00 AM, [address], [address], [place], [address],
--- OUTSIDE RECORDS SUMMARY | 2024-12-06 10:00 | XMS_ITS | Clinical Summary ---
Author Organization [facility] Facility Address [address] [place] [address] Care Team Providers Care Seeing Eye Dog Trainer Name Role Phone Regino Coleman MD Primary Care Provider Allergies Active Allergy Reactions Criticality Noted Date [...] of the pathology by [facility], Department of Pathology suggests that it may [...] date. Immunizations Name Administration Dates Next Due Floqq SARS-COV-2 12/14/2020 [employer] SARS-COV-2 08/06/2021 Pneumococcal Conjugate 13-Valent 12/29/2019 Family [...] age to complete this topic Insurance MEDICARE [employer] MEDICARE [employer] Care Teams Seeing Eye Dog Trainer Relationship Specialty Start Date End Date Regino Coleman MD [address] [place] PCP - General 10/21/20
--- OUTSIDE RECORDS SUMMARY | 2024-12-06 10:00 | XMS_ITS | Patient Health Record ---
[facility] Organization [facility] Address [address] [facility] [place] [address] Care Team Providers Care Compressor House Operator Name Role Phone Regino Coleman MD Primary Care Provider Unavaila ble Black, Aye Unavailable [phone] Allergies Allergen (clinical drug ingredient) Drug/Non Drug [...] Status Risk Notes Problem Acquired hallux valgus (34085180) Hallux valgus (acquired), left foot (M20.12) Active confirmed Problem Plantar wart (45141655) Plantar wart (B07.0) Active confirmed Problem Localized, primary osteoarthritis of the ankle and/or foot (270448375) Primary osteoarthrit is, left ankle and foot (M19.072) Active confirmed Problem Acquired hallux valgus (34773933) Hallux valgus (acquired), right foot (M20.11) Active confirmed Problem Acquired hallux valgus (16128774) Hallux valgus (acquired), left foot (M20.12) Active confirmed Problem Acquired hammer toe of right foot (7240189473087098) Other hammer toe(s) (acquired), right foot (M20.41) Active confirmed Vital Signs Height 5ft3in in 08/17/2024 Weight 138 lbs 08/17/2024 BMI 24.44 kg/m2 08/17/2024 Procedures Procedure Date Ordered Date Performed Result Body Sit e , Z8309-YAHCX/INJECT, JOINT/BURSA 02/28/2024 N/A , R5683-BIKDK/INJECT, JOINT/BURSA 08/17/2024 N/A Encounters Encounter Location Date Provider Diagnosis [facility] [place] [address] [place] [address] 02/28/2024 Aye Black Primary osteoarthritis, left ankle and foot M19.072 ; Joint pain M25.50 ; Neuralgia and neuritis, unspecified M79.2 ; Hypertrophy of bone, 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 ; Pain in left foot M79.672 ; Bunionette of left foot M21.622 and Xerosis of skin L85.[address] [facility] [address] 08/17/2024 Aye Bliss Primary osteoarthritis, left ankle and foot M19.072 ; Joint pain M25.50 ; Neuralgia and neuritis, unspecified M79.2 ; Hypertrophy of bone, 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 and Pain in left foot M79.[address] [address] 06/30/2024 Aye Bliss Assessments Encounter Date Diagnosis [...] X ray : Foot, right 3V 04/24/2013 86030-Rcfe Destruction, 1-14 02/08/2023 77152-Kjnl Destruction, 1-14 12/08/2021 79492, R8064-LSCWX/INJECT, JOINT/BURSA 0 04/06/2022 90182, B4549-BSYRL/INJECT, JOINT/BURSA 1 86486, I0441-LGFFB/INJECT, JOINT/BURSA 0 02/08/2023 84031, N2873-HVLJQ/INJECT, JOINT/BURSA 1 11/02/2019 10946, K5271-ZKTQR/INJECT, JOINT/BURSA 0 01/02/2021 63261, H0565-MBTSQ/INJECT, JOINT/BURSA 0 05/05/2021 90065, V6459-AYJTJ/INJECT, JOINT/BURSA 1 00623, J6786-NMYHD/INJECT, JOINT/BURSA 0 12/08/202191644, V7315-SAGKQ/INJECT, JOINT/BURSA 0 04/08/2016 83249, S3093-LOEWR/INJECT, JOINT/BURSA 0 11/02/2016 33262, A6932-ARTOU/INJECT, JOINT/BURSA 0 01/26/201786729, F3347-VDYKG/INJECT, JOINT/BURSA 1 11/24/2016 17926, U0416-FGPHG/INJECT, JOINT/BURSA 0 12/10/2017 07095, E0025-NRATY/INJECT, JOINT/BURSA 0 03/14/2018 82404, W6985-IBXMH/INJECT, JOINT/BURSA 1 10/29/2017 45684, Q2803-SIUST/INJECT, JOINT/BURSA 0 12/19/2018 26088, M4357-IQUVI/INJECT, JOINT/BURSA 0 04/20/201960908, A2719-XTAAF/INJECT, JOINT/BURSA 1 10/24/2018 42559, W0254-XKTVY/INJECT, JOINT/BURSA 0 01/01/2020 52518, D5883-IMGZM/INJECT, JOINT/BURSA 0 06/21/2023 12341, M3161-FMWZK/INJECT, JOINT/BURSA 0 11/01/2023 47501, O5326-DZNAP/INJECT, JOINT/BURSA 0 02/28/2024 78968, L7718-JKXBO/INJECT, JOINT/BURSA 1 10/17/2023 83766,E2615-YMS TENDON SHEATH/LIGAMENT 0 05/02/2020 Next Appt Details Provider Name:Aye Bliss , 12/11/2024 08:15:00 AM, [address] [facility], [place], [address], Insurance Providers Payer Name Payer Address Payer Phone Subscriber Number Group Number Insured Name Patient Relationship to Insured Coverage Start Date Coverage End Date Medicare National Govt [employer] [address] [place] [address] [phone] [id number] Rebekah Suh Self - patient is the insured [id number] (Curio) [address] [place] [address] [id number] Rebekah Suh Self - patient is [...] Hernia Surgery 08/03/23 Hospitalization History Reason Date(Month/Year) [facility] [place] for a day bad reaction to fentanyl w hen colonoscopy was done 08/2017
--- OUTSIDE RECORDS SUMMARY | 2024-12-06 10:00 | XMS_ITS ---
Author Organization [facility] Address [address] [place] [address] Care Team Providers Care Budget Coordinator Name Role Phone Regino Coleman MD Primary Care Provider Unavaila Aye Chandler Unavailable [phone] REASON FOR VISIT Reschedule Encounters Encounter Location Date Provider Diagnosis [address] [address] 06/30/2024 Aye Bliss Plan Of Treatment Next Appt Details Provider Name:Aye Bliss , 12/11/2024 08:15:00 AM, [address] [place], [address], Progress Notes * Alexander HAHNeDOB: [birth year] (68 yo F)Acc No.[id number]:06/30/2024 Patient:?Rebekah Hahn :1955???Age:68 Y???Sex:Female Address:[address] [place] [address], [address] * true * Date:? Generated for Printi ng/Famanjulag/eTransmitting on:?12/06/2024 09:59 AM EST
--- OUTSIDE RECORDS SUMMARY | 2024-12-06 10:00 | XMS_ITS ---
Author Organization [facility] Address [address] [place] [address] Care Team Providers Care Parking Station Attendant Name Role Phone Regino Coleman MD Primary Care Provider Amilcar Jo Unavailable [phone] ALLERGIES No Known Allergies REASON FOR VISIT [...] No Points 0 Interpretation Negative VITAL SIGNS Blood pressure systolic 00 mm Hg 09/28/20 24 Blood pressure diastolic 00 mm Hg 024 Height 64 in 09/28/2024 Weight 136 lbs 09/28/2024 BMI 23.34 kg/m2 09/28/2024 Encounters Encounter Location Date Provider Diagnosis [facility] [address] [place] [address] 09/28/2024 Amilcar Sosa Gastroesophageal ref lux disease, [...] (ICD-10 - K86.2) Need MRI report from [facility] from 06/2024 PLAN OF TREATMENT Treatment Notes Assessment Notes Encounter for screening for malignant neoplasm of colon Repeat colonoscopy in 2026 Constipation, unspecified constipation t ype For the constipation: Increase the Metamucil to 2 pills twice a day with a lot of water. Double up on the Miralax. High fiber diet with a lot of water Pancreatic cyst Need MRI report from [facility] from 06/2024 Next Appt Details Follow Up: 1 Year, Reason: Provider Name:Amilcar Soas , 09/27/2025 09:00:00 AM, [address] [facility], [address], [place], [address], Progress Notes * Examination Category Sub-Category Detail [...]
== END 2024-12-06 09:29 | disposition home or self-care (01) ==
PROVIDERS: PCP Internal Medicine; Visit Provider Surgery
DX: Z86.000 Personal history of in-situ neoplasm of breast (principal)
CPT/HCPCS: 99213; G2211

== ENCOUNTER → 2024-12-06 09:06 | Outpatient (BNVA) | payer MEDICARE, OTHER, SELFPAY | PROVIDERS: PCP Internal Medicine; Visit Provider Surgery | DX: Z86.000 Personal history of in-situ neoplasm of breast (principal) | CPT/HCPCS: 99212 ==

== ENCOUNTER 2024-12-08 08:31 | Outpatient (AMB) | payer MEDICARE, OTHER, SELFPAY ==
--- OUTSIDE RECORDS SUMMARY | 2024-12-08 08:41 | XMS_ITS | Encounter Summary ---
Author Organization [facility] Address [address] [place] [address] Phone Care Team Providers Care Cutter Operator Brick Name Role Phone Regino Coleman MD Primary Care Provider [phone] Encounter Details Date Type Department Care Team (Late st Contact Info) Description 11/25/2022 Telephone [facility] [address] [place] [address] Ying Medrano Social History Tobacco [...] called to relay that Dr. Reyes from [facility] had recently put a stent in [...] on filedocumented in this encounter Care Teams Cutter Operator Brick Relationship Specialty Start Date End Date Regino Coleman MD [address] [place] PCP - General 10/21/20 documented as of this encounter
--- OUTSIDE RECORDS SUMMARY | 2024-12-08 08:41 | XMS_ITS | Encounter Summary ---
Author Organization [facility] Address [address] [place] [address] Phone Care Team Providers Care Dispatcher Service Chief Name Role Phone Regino Coleman MD Primary Care Provider [phone] Encounter Details Date Type Department Care Team (Late st Contact Info) Description 01/06/2023 Telephone [facility] [address] [place] [address] Ying Medrano Social History Tobacco [...] appt w/ [facility] and fax order to [facility] and they will call and book sooner appt. Pt stated that she is going to see her perioperative assistant in 2 weeks and her MD stated she will do th US in office. Pls advise if you would like her perioperative assistant to do US or move forward with the hospital. Her perioperative assistant does not have a radiology department. * Telephone Encounter - Ying Medrano - 01/06/2023 9:51 AM EDT PT says she has renal ultrasound scheduled for 03/01/23. PT wants to be seen sooner, she is asking for an earlier appointment and is willing to commute to [place] if she can get a sooner appointment. documented in this encounter Plan of Treatment Not on file documented as of this encounter Visit Diagnoses Not on filedocumented in this encounter Care Teams Dispatcher Service Chief Relationship Specialty Start Date End Date Regino Coleman MD [address] [place] [address] DRIVE [address] [place] PCP - General 10/21/20 documented as of this encounter
--- OUTSIDE RECORDS SUMMARY | 2024-12-08 08:42 | XMS_ITS ---
Author Organization [facility] Address [address] [place] [address] Care Team Providers Care Field Crop Harvest Contractor Name Role Phone Regino Coleman MD Primary Care Provider Unavaila Aye Chandler Unavailable [phone] REASON FOR VISIT Reschedule Encounters Encounter Location Date Provider Diagnosis [address] [address] 06/30/2024 Aye Bliss Plan Of Treatment Next Appt Details Provider Name:Aye Bliss , 12/11/2024 08:15:00 AM, [address] [place], [address], Progress Notes * Alexander HAHNeDOB: [birth year] (68 yo F)Acc No.[id number]:06/30/2024 Patient:?Rebekah Hahn :1955???Age:68 Y???Sex:Female Address:[address] [place] [address], [address] * true * Date:? Generated for Printi ng/Famanjulag/eTransmitting on:?12/08/2024 08:42 AM EST
--- OUTSIDE RECORDS SUMMARY | 2024-12-08 08:42 | XMS_ITS | Patient Health Record ---
Author Organization [facility] Address [address] [place] [address] Care Team Providers Care Cold Press Operator Name Role Phone Regino Coleman MD Primary Care Provider Amilcar Jo Unavailable [phone] ALLERGIES No Known Allergies RESULTS Component Value Reference Range Notes Calprotectin, Fecal Reviewed date:07/21/2024 12:26:40 PM Interpretation: Performing Lab:[facility], [address] [place] [address] Notes/Report: Calprotectin, Fecal 10 Reference Range: <50 [...] borderline values. THIS TEST WAS PERFORMED AT: [facility] [address] [place] [address] RAFFY WITT MD,PHD,CHITRA GI PANEL Reviewed date:07/08/2024 08:13:38 PM Interpretation: Performing Lab:[address] [address] Notes/Report: Campylobacter Not Detected Not Detect. Plesiomonas [...] is performed by Multiplexed PCR, utilizing the DIY Array. Immunoglobulin A Reviewed date:01/14/2024 07:20:36 PM Interpretation: Performing Lab:[address] [address] Notes/Report: Immunoglobulin A 150 70-320 mg/dL THIS TEST WAS PERFORMED AT: [facility] [address] [place] [address] MARI MILLS MD Transglutaminase Ab IgG Reviewed date:01/14/2024 07:20:43 PM Interpretation: Performing Lab:[address] [address] Notes/Report: Transglutaminase Ab IgG <1.0 Value Interpretation ----- <15.0 Antibody not detected > or = 15.0 Antibody detected THIS TEST WAS PERFORMED AT: [facility] [address] [place] [address] MARI MILLS MD Transglutaminase IgA Reviewed date:01/14/2024 07:20:56 PM Interpretation: Performing Lab:[facility], [address] [place] [address] Notes/Report: Transglutaminase IgA <1.0 Value Interpretation ----- <15.0 Antibody not detected > or = 15.0 Antibody detected THIS TEST WAS PERFORMED AT: [facility] [address] [place] [address] MARI MILLS MD Gliadin Ab Panel Reviewed date:01/14/2024 07:21:04 PM Interpretation: Performing Lab:[facility], [address] [place] [address] Notes/Report: Gliadin Deamidated IgA Ab 1.4 Value Interpretation ----- <15.0 Antibody not detected > or = 15.0 Antibody detected Gliadin Deamidated IgG Ab <1.0 Value Interpretation ----- <15.0 Antibody not detected > or = 15.0 Antibody detected THIS TEST WAS PERFORMED AT: [facility] [address] [place] [address] MARI MILLS MD Endomysial IgA rflx Titer Reviewed date:01/25/2024 12:44:42 PM Interpretation: Performing Lab:[address] [address] Notes/Report: Endomysial IgA Antibody Negative Negative THIS TEST WAS PERFORMED AT: [facility] [id number] [place] [address] AURORA FORD MD,PHD Endomysial Titer TNP Complete Blood Count Auto Di ff Reviewed date:07/06/2024 12:32:00 PM Interpretation: Performing Lab:[facility], [address] [place] [address] Notes/Report: White Blood Count 7.2 4.8-10.8 X10*3/uL [...] te Reviewed date:07/06/2024 04:52:01 PM Interpretation: Performing Lab:[facility], [address] [place] [address] Notes/Report: Erythrocyte Sedimentation Rate 8 0-20 MM/HR Patients with polycythemia and many hemoglobin abnormalities may have depressed sed rates whereas patients with anemia may have elevated sed rates. C Reactive Protein Reviewed date:07/06/2024 04:51:54 PM Interpretation: Performing Lab:[facility], [address] [place] [address] Notes/Report: C Reactive Protein < 0.10 < or = 0.50 mg/dL Leukocytes Stool Qualitative Reviewed date:07/08/2024 08:12:59 PM Interpretation: Performing Lab:[facility], [address] [place] [address] Notes/Report: Leukocytes Stool Qualitative NEGATIVE NEGATIVE CDiff Gene PCR Reviewed date:07/08/2024 08:12:52 PM Interpretation: Performing Lab:[facility], [address] [place] [address] Notes/Report: CDiff Gene PCR NEGATIVE Negative If C. difficile strongly suspected despite one negative test, a second test may be sent vs. empiric treatment for C. difficile infection. Complete Blood Count Auto Di ff Reviewed date:08/01/2024 12:13:53 PM Interpretation: Performing Lab:[facility], [address] [place] [address] Notes/Report: White Blood Count 7.1 4.8-10.8 X10*3/uL [...] malignant neoplasm of colon (Z12.11) Active confirmed 658411628 Problem Diarrhea (R19.7) Active confirmed Diarr hea (81107949) Problem Encounter for screening for malignant neoplasm of rectum (Z12.12) Active confirmed Screening for malignant neoplasm of rectum (408289087) Problem Blood in stool (K92.1) Active confirmed 96211565 Problem Gastroesophageal reflux disease without esophagitis (K21.9) Active confirmed 264949590 Problem Gastroesophageal reflux disease, esophagitis presence not specified (K21.9) Active confirmed 937517607 Problem 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) Active confirmed Pancreatic cyst (15164062) Problem Constipation, unspecified constipation type (K59.00) Active confirmed 15107517 Problem Abdominal pain, left lower quadrant (R10.32) Active confirmed 006471410 Problem Irritable bowel syndrome with constipation (K58.1) Active confirmed Irritable bowel syndrome characterized by constipation (310967520) Problem Thrombocytosis, unspecified (D75.839) Active confirmed Thrombocytosis (disorder) (8944242) VITAL SIGNS Blood pressure diastolic 00 mm Hg 09/28/2024 Height 64 in 09/28/2024 Blood pressure systolic 00 mm Hg 09/28/2024 Weight 136 lbs 09/28/2024 BMI 23.34 kg/m2 09/28/2024 Encounters Encounter Location Date Provider Diagnosis [facility] [address] [place] [address] 01/04/2024 Amilcar Sosa Constipation, unspec ified constipation type K59.00 ; Irritable bowel syndrome with constipation K58.1 ; Encounter for screening for malignant neoplasm of colon Z12.11 and Pancreatic cyst K86.2 [facility] [address] [place] [address] 09/28/2024 Amilcar Sosa Gastroesophageal ref lux disease, esophagitis presence not specified K21.9 ; Irritable bowel syndrome with constipation K58.1 ; Encounter for screening for malignant neoplasm of colon Z12.11 ; Constipation, unspecified constipation type K59.00 and Pancreatic cyst K86.2 [facility] [address] [place] [address] 09/28/2024 Amilcar Sosa [facility] [address] [place] [address] 01/04/2024 Amilcar Sosa [facility] [address] [place] [address] 06/28/2024 Amilcar Sosa [facility] [address] [place] [address] 07/05/2024 Amilcar Sosa Diarrhea R19.7 [facility] [address] [place] [address] 07/10/2024 Amilcar Sosa Diarrhea R19.7 and Thrombocytosis, unspecified D75.839 [facility] [address] [place] [address] 07/20/2024 Amilcar Sosa ASSESSMENTS Encounter Date Diagnosis [...] (ICD-10 - K86.2) Need MRI report from [facility] from 06/2024 PLAN OF TREATMENT Pending Test [...] 09:00:00 AM, [address], [address], [place], [address], Insurance Providers Payer Name Payer Address Payer Phone Subscriber Number Group Number Insured Name Patient Relationship to Insured Coverage Start Date Coverage End Date MEDICARE [place] [address] [place] [address] [id number] CORDELL ORDAZ Self - patient is the insured [employer] ([employer]) [address] [place] [id number] [phone] [id number] CORDELL ORDAZ Self - patient is the insured MEDICAL (GENERAL) HISTORY Medical History History ICD Code Screening colonoscopy 05-24-2009--negativ e EGD 01-05-2002 and in 11/2016--small HH, n o esophagitis, no Hernandes's Asthma--presently asymptomatic 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 Dillard Mitral valve prolapse Lyme's disease/Fibromyalgia--Amitryptile ne and Gabapentin Migraines-on Propranolol Hyperlipidemia Arthritis in left foot--Meloxicam/Cortis one injections Denies ID,DM,CVA,renal disease Renal cancer with surgery in 06/2018 [...] polyps Left kidney removed for cancer at [facility] by Dr. Corrales 06/2018 Partial hysterectomy and linnea dder suspension with complications of the right ureteral injury that needed stenting, then repeat laparoscopy for internal bleeding 11/18/2022 Incisional hernia repair x 2 in 2020 and 07/2023
--- OUTSIDE RECORDS SUMMARY | 2024-12-08 08:42 | XMS_ITS ---
Author Organization [facility] Address [address] [place] [address] Care Team Providers Care Inserting Operator Name Role Phone Regino Coleman MD Primary Care Provider Unavaila Aye Chandler [phone] Encounters Encounter Location Date Provider Diagnosis [address] [address] 07/03/2024 Aye Bliss Plan Of Treatment Next Appt Details Provider Name:Aye Bliss , 12/11/2024 08:15:00 AM, [address] [place] [address], [address], Progress Notes * Alexander HAHNeDOB: [birth year] (69 yo F)Acc No.[id number]:07/03/2024 Progress Note Patient:?Rebekah HAHN Provider:?Aye Bliss DPM :1955???Age:68 Y???Sex:Female D ate:07/03/2024 Address:[address] [place] [address] [place], [place] Pcp:Regino Coleman MD Subjective: * Chief Complaints: [...] Bliss DPM Date:?2023 Generated for Chandler bentley/Brennon/Nirav on:?12/08/2024 08:41 AM EST
--- OUTSIDE RECORDS SUMMARY | 2024-12-08 08:42 | XMS_ITS ---
Author Organization [facility] Address [address] [place] [address] Care Team Providers Care Environmental Engineering Aide Name Role Phone Regino Coleman MD Primary Care Provider Amilcar Jo [phone] Encounters Encounter Location Date Provider Diagnosis [facility] [address] [facility] [address] [place] [address] 07/20/2024 Amilcar Sosa PLAN OF TREATMENT Next Appt Details Provider Name:Amilcar Sosa , 09/27/2025 09:00:00 AM, [address] [facility] [facility], [address], [place], [address],
--- OUTSIDE RECORDS SUMMARY | 2024-12-08 08:42 | XMS_ITS ---
Author Organization [facility] Address [address] [place] [address] Care Team Providers Care Graffiti Cleaner Name Role Phone Regino Coleman MD Primary Care Provider Amilcar Jo Unavailable [phone] ALLERGIES No Known Allergies REASON FOR VISIT [...] 09/28/2024 Encounters Encounter Location Date Provider Diagnosis [facility] [address] [place] [address] 09/28/2024 Amilcar Sosa Gastroesophageal ref lux disease, [...] (ICD-10 - K86.2) Need MRI report from [facility] from 06/2024 PLAN OF TREATMENT Treatment Notes Assessment Notes Encounter for screening for malignant neoplasm of colon Repeat colonoscopy in 2026 Constipation, unspecified constipation t ype For the constipation: Increase the Metamucil to 2 pills twice a day with a lot of water. Double up on the Miralax. High fiber diet with a lot of water Pancreatic cyst Need MRI report from [facility] from 06/2024 Next Appt Details Follow Up: 1 Year, Reason: Provider Name:Amilcar Sosa , 09/27/2025 09:00:00 AM, [address] [facility], [address], [place], [address], Progress Notes * Examination Category Sub-Category Detail [...]
--- OUTSIDE RECORDS SUMMARY | 2024-12-08 08:43 | XMS_ITS | Patient Health Record ---
[facility] Organization [facility] Address [address] [place] [address] Care Team Providers Care Wind Operations Manager Name Role Phone Regino Coleman MD Primary Care Provider Unavaila ble Black, Aye Unavailable [phone] Allergies Allergen (clinical drug ingredient) Drug/Non Drug [...] Status Risk Notes Problem Acquired hallux valgus (38704048) Hallux valgus (acquired), left foot (M20.12) Active confirmed Problem Plantar wart (16072148) Plantar wart (B07.0) Active confirmed Problem Localized, primary osteoarthritis of the ankle and/or foot (527949504) Primary osteoarthrit is, left ankle and foot (M19.072) Active confirmed Problem Acquired hallux valgus (84853251) Hallux valgus (acquired), right foot (M20.11) Active confirmed Problem Acquired hallux valgus (67671140) Hallux valgus (acquired), left foot (M20.12) Active confirmed Problem Acquired hammer toe of right foot (6969364163440068) Other hammer toe(s) (acquired), right foot (M20.41) Active confirmed Vital Signs Height 5ft3in in 08/17/2024 Weight 138 lbs 08/17/2024 BMI 24.44 kg/m2 08/17/2024 Procedures Procedure Date Ordered Date Performed Result Body Sit e , Q3552-DLKMC/INJECT, JOINT/BURSA 02/28/2024 N/A , C1219-GDPTQ/INJECT, JOINT/BURSA 08/17/2024 N/A Encounters Encounter Location Date Provider Diagnosis [facility] [address] [place] [address] 02/28/2024 Aye Black Primary osteoarthritis, left ankle and foot M19.072 ; Joint pain M25.50 ; Neuralgia and neuritis, unspecified M79.2 ; Hypertrophy of bone, 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 ; Pain in left foot M79.672 ; Bunionette of left foot M21.622 and Xerosis of skin L85.[address] [facility] [address] 08/17/2024 Aye Bliss Primary osteoarthritis, left ankle and foot M19.072 ; Joint pain M25.50 ; Neuralgia and neuritis, unspecified M79.2 ; Hypertrophy of bone, 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 and Pain in left foot M79.[address] [address] 06/30/2024 Aye Bliss Assessments Encounter Date Diagnosis [...] X ray : Foot, right 3V 04/24/2013 75115-Pqre Destruction, 1-14 02/08/2023 84178-Iimr Destruction, 1-14 12/08/2021 30767, O3188-RZHMR/INJECT, JOINT/BURSA 0 04/06/2022 10596, S3843-CKEQA/INJECT, JOINT/BURSA 1 81593, F9131-SHBDQ/INJECT, JOINT/BURSA 0 02/08/2023 44196, Z5557-GEHLD/INJECT, JOINT/BURSA 1 11/02/2019 50942, O3391-GKWJH/INJECT, JOINT/BURSA 0 01/02/2021 34546, M5798-QJOTZ/INJECT, JOINT/BURSA 0 05/05/2021 90290, I0645-MHRZJ/INJECT, JOINT/BURSA 1 63292, S9944-IFWAE/INJECT, JOINT/BURSA 0 12/08/202190924, F7291-QRNCL/INJECT, JOINT/BURSA 0 04/08/2016 28500, R6860-NAHXI/INJECT, JOINT/BURSA 0 11/02/2016 28977, S7831-DYASY/INJECT, JOINT/BURSA 0 01/26/201784461, O2215-CGSQE/INJECT, JOINT/BURSA 1 11/24/2016 18546, D3278-KCUVF/INJECT, JOINT/BURSA 0 12/10/2017 83831, S4847-JTCUN/INJECT, JOINT/BURSA 0 03/14/2018 48750, C4151-ZBXEU/INJECT, JOINT/BURSA 1 10/29/2017 81906, G9597-JJWHG/INJECT, JOINT/BURSA 0 12/19/2018 87715, A5785-YFPNY/INJECT, JOINT/BURSA 0 04/20/201951957, G8389-IOEHB/INJECT, JOINT/BURSA 1 10/24/2018 38849, B6032-XUFOK/INJECT, JOINT/BURSA 0 01/01/2020 44595, M4585-JMTSK/INJECT, JOINT/BURSA 0 06/21/2023 15673, P1593-QJYSW/INJECT, JOINT/BURSA 0 11/01/2023 21225, L6865-HKMWI/INJECT, JOINT/BURSA 0 02/28/2024 25209, T6172-LAMUM/INJECT, JOINT/BURSA 1 10/17/2023 33284,H1263-QLE TENDON SHEATH/LIGAMENT 0 05/02/2020 Next Appt Details Provider Name:Aye Bliss , 12/11/2024 08:15:00 AM, [address] [facility], [place], [address], Insurance Providers Payer Name Payer Address Payer Phone Subscriber Number Group Number Insured Name Patient Relationship to Insured Coverage Start Date Coverage End Date Medicare National Govt [employer] [address] [place] [address] [id number] Rebekah Suh Self - patient is the insured [employer] [address] [place] [address] [id number] Rebekah Suh Self - patient is [...] Hernia Surgery 08/03/23 Hospitalization History Reason Date(Month/Year) [facility] for a day bad reaction to fentanyl w hen colonoscopy was done 08/2017
--- OUTSIDE RECORDS SUMMARY | 2024-12-08 08:43 | XMS_ITS ---
Author Organization [facility] Address [address] [place] [address] Care Team Providers Care Auto Parts Handler Name Role Phone Regino Coleman MD Primary Care Provider Amilcar Jo Unavailable [phone] REASON FOR VISIT advise her of her gallstones Encounters Encounter Location Date Provider Diagnosis [facility] [address] [place] [address] 09/28/2024 Amilcar Sosa PLAN OF TREATMENT Next Appt Details Provider Name:Amilcar Sosa , 09/27/2025 09:00:00 AM, [address], [address], [place], [address],
--- OUTSIDE RECORDS SUMMARY | 2024-12-08 08:43 | XMS_ITS ---
Author Organization [facility] Address [address] [place] [address] Care Team Providers Care Document Review Attorney Name Role Phone Regino Coleman MD Primary Care Provider Unavaila ble Black, Aye Unavailable [phone] Allergies Allergen (clinical drug ingredient) Drug/Non Drug [...] Date Performed Result Body Sit e , I4302-GIPPL/INJECT, JOINT/BURSA 08/17/2024 N/A Encounters Encounter Location Date Provider Diagnosis [facility] [address] [place] [address] 08/17/2024 Aye Bliss Primary osteoarthritis, left ankle [...] Pending Test Test Name Order Date , U5834-FYVIF/INJECT, JOINT/BURSA 1 10/17/2023 Next Appt Details Follow Up: 4 Months, Reason: Provider Name:Aye Miranda Izaiah , 12/11/2024 08:15:00 AM, [address] [place], [address], Procedure Notes * Category Sub-Category Detail Notes [...] * Ashvin HAHNOB: [birth year] (68 yo F)Acc No.[id number]:08/17/2024 Progress Note Patient:?Rebekah Hahn Provider:?Aye Bliss DPM :1955???Age:68 Y???Sex:Female D ate:08/17/2024 Address:[address] [place], [place] [address] Pcp:Regino Coleman MD Subjective: * Chief Complaints: [...] 11/18/22Hernia Surgery 08/03/23 * Hospitalization/Major Diagno stic Procedure:[place] [place] bad [place] to fentanyl [...] * Procedure Codes:?J0702 INJ B ETAMETHSN ACTAT&SOD [id number] DRAIN/INJECT, JOINT/BURSA, Modifiers: XS * Follow Up:?4 Months * Images: * Sign off status: Completed true * Provider:?Aye Bliss DPM Date:?2023 Generated for Chandler bentley/Brennon/Nirav on:?12/08/2024 08:42 AM EST History and Physical Notes * [...]
--- OUTSIDE RECORDS SUMMARY | 2024-12-08 08:43 | XMS_ITS | Clinical Summary ---
Author Organization [facility] Address [address] [facility] [address] [place] [address] Care Team Providers Care Line Builder Name Role Phone Regino Coleman MD Primary Care Provider [phone] Allergies Active Allergy Reactions Criticality Noted Date [...] of the pathology by [facility], Department of Pathology suggests that it may [...] date. Immunizations Name Administration Dates Next Due [employer] SARS-COV-2 12/14/2020 Jaunt SARS-COV-2 08/06/2021 Pneumococcal Conjugate 13-Valent 12/29/2019 Family [...] age to complete this topic Insurance MEDICARE [facility] MEDICARE [facility] Care Teams Line Builder Relationship Specialty Start Date End Date Regino Coleman MD [address] [place] PCP - General 10/21/20
--- NOTE | 2024-12-08 09:06 | AM.OFFWIN_ITS ---
Intake Vital Signs 12/08/24 09:08 Weight 132 lb BP 110/70 Blood Pressure Location Lt brachial Position Sitting Pulse 88 Pulse Source Pulse Oximeter Temp 98.7 F Temp Source Oral Pulse Oximetry (%) 97 Oxygen Delivery Method Room Air Intake Visit Reasons: EP Sinus, sore throat Intake Note: Patient here for headache, sore throat,fever that started wednesday. Patient Tobacco Use Status: Never used Tobacco Allergies fentanyl [FENTANYL] Allergy (Severe, Verified 12/08/24 09:09) SEVERE VOMITING, severe headache, vomiting sulfamethoxazole [From BACTRIM] Allergy (Severe, Verified 12/08/24 09:09) CANNOT TAKE-ONLY HAS ONE KIDNEY trimethoprim [From BACTRIM] Allergy (Severe, Verified 12/08/24 09:09) CANNOT TAKE-ONLY HAS ONE KIDNEY azithromycin [AZITHROMYCIN] Allergy (Intermediate, Verified 12/08/24 09:09) DIARRHEA Do you need a note to return to daycare/school/sports/work: No HPI HPI Comments History of Present Illness Details This is a 69-year-old female who presented to the walk-in clinic complaining of viral URI symptoms such as nasal/sinus congestion, sinus pressure/headache, low-grade fevers/chills, and sore throat x2 days. She denies any known sick contacts. She reports some nasal drainage, which is mostly clear to light yellow. She denies any significant otalgia but does report some ear pressure. She also reports a mild dry cough, which started last night. Patient states she feels as though her lymph nodes are swollen. She denies any chest pain or shortness of breath. She denies any abdominal pain or n ausea/vomiting/diarrhea. 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 History of kidney cancer Chronic kidney disease Migraines Osteoarthritis Fibromyalgia Hypercholesteremia Surgical History History of hernia repair H/O hysterectomy for benign disease Hx of surgical procedure (~08/03/23) H/O vaginal hysterectomy History of incisional hernia repair (~11/29/19) History of nephrectomy, left (~06/2018) Status post biopsy of kidney (~04/2018) History of breast biopsy (~05/11/14) History of tonsillectomy and adenoidectomy S/P removal of left ovary (~1978) History of removal of cyst (~1972) History of ankle surgery (~2003) H/O kidney removal History of breast surgery Hx of tonsillectomy Family History Father Stomach cancer Prostate cancer High cholesterol Sister Stroke Mother High cholesterol CLL (chronic lymphocytic leukemia) Maternal Aunt Breast cancer Social History Household Members: Spouse Housing: House Alcohol intake: current Alcohol intake frequency: holidays/special occasions only Patient Tobacco Use Status: Never used Tobacco Advance Directives Date on File: 07/25/20 service: No Current occupational status: 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 Sexual orientation: Straight/Heterosexual Gender identity: Female Female Reproductive History Menstrual Age of Menarche: 10 Review of Systems Const All systems reviewed & are unremarkable except as noted in HPI and below Reports no additional complaints Eyes Reports no additional complaints ENT Reports no additional complaints Card Reports no additional complaints Resp Reports no additional complaints GI Reports no additional complaints Reports no additional complaints Musc Reports no additional complaints Skin/Breast Reports system reviewed and no additional complaints, except as documented Neuro Reports no additional complaints Psych Reports no additional complaints Endo Reports no additional complaints Kel[place]/Lymph Reports no additional complaints Aller/Immun Reports no additional complaints Physical Exam Vital Signs: Last Vital Signs Temp 98.7 F 12/08/24 09:08 Pulse 88 12/08/24 09:08 BP 110/70 12/08/24 09:08 Pulse Ox 97 12/08/24 09:08 Oxygen Delivery Method Room Air 12/08/24 09:08 Const Other: Vital signs reviewed. Constitutional: Non-toxic appearing. No acute distress. Well-developed and well-nourished. HEENT: Normocephalic and atraumatic. PERRL/EOMI. Tympanic membranes without erythema, edema, or bulging bilaterally. External auditory canals without erythema or edema bilaterally. Moist mucous membranes. Mild posterior pharyngeal erythema without exudates, edema, or tonsillar hypertrophy. Skin: Warm and dry. No rashes or lesions noted. Neck: Full and painless range of motion. Boggy anterior cervical lymphadenopathy. Cardio: Regular rate and rhythm. No murmurs, gallops, or rubs. No lower extremity edema. No JVD. Pulmonary: No respiratory distress. No accessory muscle usage. Clear to auscultation bilaterally without wheezing, crackles, or rhonchi. Gastrointestinal: Soft, nontender, and nondistended in all 4 quadrants. Musculoskeletal: Normal range of motion in joints throughout the body. No deformity or other signs of injury. Neuro: Alert and oriented x4. Cranial nerves 2-12 grossly intact. No focal deficits appreciated. Psych: Normal mood and affect. Results AMB Rapid Strep AMB Rapid Strep Negative Last Edit by RODRIGO Grider on 12/08/24 09:17 Results Reviewed Results Reviewed: Laboratory Last Values Strep Scn Rapid Clinic Negative 12/08/24 09:16 Assessment & Plan Assessment & Plan (1) Acute upper respiratory infection, unspecified: Code(s): J06.9 - Acute upper respiratory infection, unspecified (2) Acute viral pharyngitis: Code(s): J02.9 - Acute pharyngitis, unspecified Plan This is a 69-year-old female who presented to the walk-in clinic complaining of viral URI symptoms x2 days. On physical examination, she has mild posterior p haryngeal erythema and boggy anterior cervical lymphadenopathy. A rapid strep test was obtained, which was negative. Patient very likely has an acute viral upper respiratory tract infection and acute viral pharyngitis. COVID/flu/RSV sent. Recommended symptomatic management including rest, increased fluids, tylenol for pain/fever, salt water gargles, and over the counter throat lozenges/decongestants. Patient advised to follow up here or go to the emergency room for worsening/persistent symptoms. Patient verbalized understanding and is agreeable with the plan. Orders: Orders SARS-CoV2/FLU/RSV Today J06.9 - Acute upper respiratory infection, unspecified AMB Rapid Strep Screen Today Z13.9 - Encounter for screening, unspecified Coding Level of Care Code Est Pt Level 3 (31649) Diagnoses Acute upper respiratory infection, unspecified J06.9 Acute viral pharyngitis J02.9
[2024-12-08 09:08] VITALS: BP 110/70; PULSE 88; TEMP 37.1; O2SAT 97
== END 2024-12-08 09:50 | disposition home or self-care (01) ==
PROVIDERS: PCP Internal Medicine; Visit Provider Physician Assistant Medical
DX: J06.9 Acute upper respiratory infection, unspecified (principal); J02.9 Acute pharyngitis, unspecified; Z13.9 Encounter for screening, unspecified

== ENCOUNTER 2024-12-08 13:36 | Outpatient (REF) | payer MEDICARE, OTHER, SELFPAY ==
[2024-12-08 14:19] LABS: Influenza A PCR NEGATIVE (Negative); Influenza B PCR NEGATIVE (Negative); Resp Syncy Virus RNA Qual PCR NEGATIVE (Negative); SARS COV2 PCR INHOUSE NEGATIVE (Negative)
--- OUTSIDE RECORDS SUMMARY | 2024-12-08 15:44 | XMS_ITS | Encounter Summary ---
Author Organization [facility] Address [address] [place] [address] Phone Care Team Providers Care Pbx Manager Name Role Phone Regino Coleman MD Primary Care Provider [phone] Encounter Details Date Type Department Care Team (Late st Contact Info) Description 11/25/2022 Telephone [facility] [address] [place] [address] Ying Medrano Social History Tobacco [...] called to relay that Dr. Reyes from [facility] had recently put a stent in [...] on filedocumented in this encounter Care Teams Pbx Manager Relationship Specialty Start Date End Date Regino Coleman MD [address] [place] PCP - General 10/21/20 documented as of this encounter
--- OUTSIDE RECORDS SUMMARY | 2024-12-08 15:44 | XMS_ITS | Encounter Summary ---
Author Organization [facility] Address [address] [place] [address] Phone Care Team Providers Care Combat Engineer Name Role Phone Regino Coleman MD Primary Care Provider [phone] Encounter Details Date Type Department Care Team (Late st Contact Info) Description 01/06/2023 Telephone [facility] [address] [place] [address] Ying Medrano Social History Tobacco [...] appt w/ [facility] and fax order to [facility] and they will call and book sooner appt. Pt stated that she is going to see her hop sorter in 2 weeks and her MD stated she will do th US in office. Pls advise if you would like her hop sorter to do US or move forward with the hospital. Her hop sorter does not have a radiology department. * Telephone Encounter - Ying Medrano - 01/06/2023 9:51 AM EDT PT says she has renal ultrasound scheduled for 03/01/23. PT wants to be seen sooner, she is asking for an earlier appointment and is willing to commute to [place] if she can get a sooner appointment. documented in this encounter Plan of Treatment Not on file documented as of this encounter Visit Diagnoses Not on filedocumented in this encounter Care Teams Combat Engineer Relationship Specialty Start Date End Date Regino Coleman MD [address] [place] [address] DRIVE [address] [place] PCP - General 10/21/20 documented as of this encounter
--- OUTSIDE RECORDS SUMMARY | 2024-12-08 15:45 | XMS_ITS | Clinical Summary ---
Author Organization [facility] Facility Address [address] [facility] [place] [address] Care Team Providers Care Program Consultant Name Role Phone Regino Coleman MD Primary Care Provider [phone] Allergies Active Allergy Reactions Criticality Noted Date [...] of the pathology by [facility], Department of Pathology suggests that [...] date. Immunizations Name Administration Dates Next Due [employer] SARS-COV-2 12/14/2020 Jackrabbit SARS-COV-2 08/06/2021 Pneumococcal Conjugate 13-Valent 12/29/2019 Family [...] complete this topic Insurance MEDICARE [facility] MEDICARE [facility] Care Teams Program Consultant Relationship Specialty Start Date End Date Regino Coleman MD [address] [place] PCP - General 10/21/20
== END 2024-12-08 13:37 | disposition home or self-care (01) ==
LOC: HO.LNP 13:36
PROVIDERS: PCP Internal Medicine; Visit Provider Physician Assistant Medical
DX: J06.9 Acute upper respiratory infection, unspecified (principal); J02.9 Acute pharyngitis, unspecified
CPT/HCPCS: 0241U; 87880; 99212

== ENCOUNTER 2025-01-24 09:51 | Outpatient (AMB) | payer MEDICARE, OTHER, SELFPAY ==
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
[2025-01-24 10:04] VITALS: BP 120/80; PULSE 74; TEMP 36.3; O2SAT 99; BMI 23.7
--- OUTSIDE RECORDS SUMMARY | 2025-01-24 11:08 | XMS_ITS | Encounter Summary ---
Author Organization [facility] Address [address] [place] [address] Phone Care Team Providers Care Yeast Pusher Name Role Phone Regino Coleman MD Primary Care Provider [phone] Encounter Details Date Type Department Care Team (Late st Contact Info) Description 11/25/2022 Telephone [facility] [address] [place] [address] Ying Medrano Social History Tobacco [...] to relay that Dr. Reyes from [facility] had recently put a stent in [...] on filedocumented in this encounter Care Teams Yeast Pusher Relationship Specialty Start Date End Date Regino Coleman MD [address] [place] PCP - General 10/21/20 documented as of this encounter
--- OUTSIDE RECORDS SUMMARY | 2025-01-24 11:08 | XMS_ITS | Encounter Summary ---
Author Organization [facility] Address [address] [place] [address] Phone Care Team Providers Care Clinical Research Administrator Name Role Phone Regino Coleman MD Primary Care Provider [phone] Encounter Details Date Type Department Care Team (Late st Contact Info) Description 01/06/2023 Telephone [facility] [address] [place] [address] Ying Medrano Social History Tobacco [...] appt w/ [facility] and fax order to [facility] and they will call and book sooner appt. Pt stated that she is going to see her client account assistant in 2 weeks and her MD stated she will do th US in office. Pls advise if you would like her client account assistant to do US or move forward with the hospital. Her client account assistant does not have a radiology department. * Telephone Encounter - Ying Medrano - 01/06/2023 9:51 AM EDT PT says she has renal ultrasound scheduled for 03/01/23. PT wants to be seen sooner, she is asking for an earlier appointment and is willing to commute to [place] if she can get a sooner appointment. documented in this encounter Plan of Treatment Not on file documented as of this encounter Visit Diagnoses Not on filedocumented in this encounter Care Teams Clinical Research Administrator Relationship Specialty Start Date End Date Regino Coleman MD [address] [place] [address] [id number] [place] PCP - General 10/21/20 documented as of this encounter
--- OUTSIDE RECORDS SUMMARY | 2025-01-24 11:08 | XMS_ITS | Patient Health Record ---
Author Organization [facility] Address [address] [place] [address] Care Team Providers Care Software Controls Engineer Name Role Phone Regino Coleman MD Primary Care Provider Amilcar Jo Unavailable [phone] Allergies No Known Allergies Results Component Value Reference Range Notes Calprotectin, Fecal Reviewed date:07/21/2024 12:26:40 PM Interpretation: Performing Lab:[facility], [address] [place] [phone] Notes/Report: Calprotectin, Fecal 10 Reference Range: <50 [...] borderline values. THIS TEST WAS PERFORMED AT: [facility] [address] [place] [address] RAFFY WITT MD,PHD,CHITRA GI PANEL Reviewed date:07/08/2024 08:13:38 PM Interpretation: Performing Lab:[address] [address] Notes/Report: Campylobacter Not Detected Not Detect. Plesiomonas [...] is performed by Multiplexed PCR, utilizing the Vrvana Array. Complete Blood Count Auto Di ff Reviewed date:07/06/2024 12:32:00 PM Interpretation: Performing Lab:[facility], [address] [place] [address] Notes/Report: White Blood Count 7.2 4.8-10.8 X10*3/uL [...] te Reviewed date:07/06/2024 04:52:01 PM Interpretation: Performing Lab:[address] [address] Notes/Report: Erythrocyte Sedimentation Rate 8 0-20 MM/HR Patients with polycythemia and many hemoglobin abnormalities may have depressed sed rates whereas patients with anemia may have elevated sed rates. C Reactive Protein Reviewed date:07/06/2024 04:51:54 PM Interpretation: Performing Lab:[facility], [address] [place] [phone] Notes/Report: C Reactive Protein < 0.10 < or = 0.50 mg/dL Leukocytes Stool Qualitative Reviewed date:07/08/2024 08:12:59 PM Interpretation: Performing Lab:[address] [address] Notes/Report: Leukocytes Stool Qualitative NEGATIVE NEGATIVE CDiff Gene PCR Reviewed date:07/08/2024 08:12:52 PM Interpretation: Performing Lab:[facility], [address] [place] [phone] Notes/Report: CDiff Gene PCR NEGATIVE Negative If C. difficile strongly suspected despite one negative test, a second test may be sent vs. empiric treatment for C. difficile infection. Complete Blood Count Auto Di ff Reviewed date:08/01/2024 12:13:53 PM Interpretation: Performing Lab:[facility], [address] [place] [phone] Notes/Report: White Blood Count 7.1 4.8-10.8 X10*3/uL [...] X10*3/uL NRBC Abs Auto 0.000 0.0-0.012 X10*3/uL Reason For Referral No Information Medications Medication [...] FOR MODERATE PAIN Oral for 15 Active Immunizations Vaccine Route Administration Date Status Comme nts Influenza Unknown 07/11/2021 Administered Social History Alcohol Screen Question Answer Notes Did you have a drink containing alcohol in the p ast year? No Points 0 Interpretation Negative Section Notes: Nonsmoker; no sig alcohol Nonsmoker; no sig alcohol Nonsmoker; no sig alcohol Nonsmoker; no sig alcohol Nonsmoker; no sig alcohol Problems Problem Type SNOMED Code ICD Code Onset Dates Problem Status W/U Status Risk Notes Problem 604776293 Encounter for screening for malignant neoplasm of colon (Z12.11) Active confirmed Problem Diarrhea (33289359) Diarrhea (R19.7) Active confirmed Problem Screening for malignant neoplasm of rectum (218259135) Encounter for screening for malignant neoplasm of rectum (Z12.12) Active confirmed Problem 02595768 Blood in stool (K92.1) Active confirmed Problem 805094815 Gastroesophageal reflux disease without esophagitis (K21.9) Active confirmed Problem 152112477 Gastroesophageal reflux disease, esophagitis presence not specified (K21.9) Active confirmed Problem Pancreatic cyst (41741432) 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) Active confirmed Problem 36181631 Constipation, unspecified constipation type (K59.00) Active confirmed Problem 654289619 Abdominal pain, left lower quadrant (R10.32) Active confirmed Problem Irritable bowel syndrome characterized by constipation (070025083) Irritable bowel syndrome with constipation (K58.1) Active confirmed Problem Thrombocytosis (disorder) (5941916) Thrombocytosis, unspecified (D75.839) Active confirmed Vital Signs Blood pressure diastolic 00 mm Hg 09/28/2024 Height 64 in 09/28/2024 Blood pressure systolic 00 mm Hg 09/28/2024 Weight 136 lbs 09/28/2024 BMI 23.34 kg/m2 09/28/2024 Encounters Encounter Location Date Provider Diagnosis [facility] [address] [place] [address] 09/28/2024 Amilcar Sosa Gastroesophageal ref lux disease, esophagitis presence not specified K21.9 ; Irritable bowel syndrome with constipation K58.1 ; Encounter for screening for malignant neoplasm of colon Z12.11 ; Constipation, unspecified constipation type K59.00 and Pancreatic cyst K86.2 [facility] [address] [place] [address] 09/28/2024 Amilcar Sosa [facility] [address] [place] [address] 06/28/2024 Amilcar Sosa [facility] [address] [place] [address] 07/05/2024 Amilcar Sosa Diarrhea R19.7 [facility] [address] [place] [address] 07/10/2024 Amilcar Sosa Diarrhea R19.7 and Thrombocytosis, unspecified D75.839 [facility] [address] [place] [address] 07/20/2024 Amilcar Sosa Assessments Encounter Date Diagnosis (ICD Code) Assessment Notes Treatment Notes Treatment Clinical Notes Section Notes 09/28/2024 Gastroesophageal reflux disease, esophagitis presence not specified (ICD-10 - K21.9) Overall, Cordell appears well. We did review her history of constipation and irritable bowel syndrome in detail. I advised her that her abdominal discomfort, gas, bloating, and her nausea were related to her several days of not having any bowel movements with associated constipation and then having the subsequent GI symptoms. As such, I recommended using the 2 Metamucil fiber pills twice a day with plenty of water and to use twice as much MiraLax. Hopefully that will allow her to have more frequent and regular bowel movements as opposed to having the current cycle of no bowel movements for several days followed by the day of frequent stools. If her bowel movements become more regular then hopefully her abdominal discomfort and other symptoms would improve as well. I advised her to stay on a high-fiber diet with a lot of water as well. We did review that she'll be due for a followup colonoscopy in 2026 for screening given her negative exam in 2016 and no family history of colon cancer. In regard to the history the incidental pancreatic cyst this seems to be very stable based on her report of the stable MRI in June. I will obtain a copy of the report. I recommended another MRI in that regard in one year as well. If things are stable I will plan to see her in one year for a followup visit. She was advised to contact me prior to that if she has any problems or questions I can be of assistance with. Cordell was comfortable with this plan. Thank you again for allowing me to participate in Cordell's care. I shall continue to keep you advised of her progress. 09/28/2024 Irritable bowel syndrome with constipation (ICD-10 - K58.1) Overall, Cordell appears well. We did review her history of constipation and irritable bowel syndrome in detail. I advised her that her abdominal discomfort, gas, bloating, and her nausea were related to her several days of not having any bowel movements with associated constipation and then having the subsequent GI symptoms. As such, I recommended using the 2 Metamucil fiber pills twice a day with plenty of water and to use twice as much MiraLax. Hopefully that will allow her to have more frequent and regular bowel movements as opposed to having the current cycle of no bowel movements for several days followed by the day of frequent stools. If her bowel movements become more regular then hopefully her abdominal discomfort and other symptoms would improve as well. I advised her to stay on a high-fiber diet with a lot of water as well. We did review that she'll be due for a followup colonoscopy in 2026 for screening given her negative exam in 2016 and no family history of colon cancer. In regard to the history the incidental pancreatic cyst this seems to be very stable based on her report of the stable MRI in June. I will obtain a copy of the report. I recommended another MRI in that regard in one year as well. If things are stable I will plan to see her in one year for a followup visit. She was advised to contact me prior to that if she has any problems or questions I can be of assistance with. Cordell was comfortable with this plan. Thank you again for allowing me to participate in Cordell's care. I shall continue to keep you advised of her progress. 07/05/2024 Diarrhea (ICD-10 - R19.7) 07/10/2024 Diarrhea (ICD-10 - R19.7) 07/10/2024 Thrombocytosis, unspecified (ICD-10 - D75.839) 09/28/2024 Encounter for screening for malignant neoplasm of colon (ICD-10 - Z12.11) Repeat colonoscopy in 2026 Overall, Cordell appears well. We did review her history of constipation and irritable bowel syndrome in detail. I advised her that her abdominal discomfort, gas, bloating, and her nausea were related to her several days of not having any bowel movements with associated constipation and then having the subsequent GI symptoms. As such, I recommended using the 2 Metamucil fiber pills twice a day with plenty of water and to use twice as much MiraLax. Hopefully that will allow her to have more frequent and regular bowel movements as opposed to having the current cycle of no bowel movements for several days followed by the day of frequent stools. If her bowel movements become more regular then hopefully her abdominal discomfort and other symptoms would improve as well. I advised her to stay on a high-fiber diet with a lot of water as well. We did review that she'll be due for a followup colonoscopy in 2026 for screening given her negative exam in 2016 and no family history of colon cancer. In regard to the history the incidental pancreatic cyst this seems to be very stable based on her report of the stable MRI in June. I will obtain a copy of the report. I recommended another MRI in that regard in one year as well. If things are stable I will plan to see her in one year for a followup visit. She was advised to contact me prior to that if she has any problems or questions I can be of assistance with. Cordell was comfortable with this plan. Thank you again for allowing me to participate in Cordell's care. I shall continue to keep you advised of her progress. 09/28/2024 Constipation, unspecified constipation type (ICD-10 - K59.00) For the constipation: Increase the Metamucil to 2 pills twice a day with a lot of water. Double up on the Miralax. High fiber diet with a lot of water Overall, Cordell appears well. We did review her history of constipation and irritable bowel syndrome in detail. I advised her that her abdominal discomfort, gas, bloating, and her nausea were related to her several days of not having any bowel movements with associated constipation and then having the subsequent GI symptoms. As such, I recommended using the 2 Metamucil fiber pills twice a day with plenty of water and to use twice as much MiraLax. Hopefully that will allow her to have more frequent and regular bowel movements as opposed to having the current cycle of no bowel movements for several days followed by the day of frequent stools. If her bowel movements become more regular then hopefully her abdominal discomfort and other symptoms would improve as well. I advised her to stay on a high-fiber diet with a lot of water as well. We did review that she'll be due for a followup colonoscopy in 2026 for screening given her negative exam in 2016 and no family history of colon cancer. In regard to the history the incidental pancreatic cyst this seems to be very stable based on her report of the stable MRI in June. I will obtain a copy of the report. I recommended another MRI in that regard in one year as well. If things are stable I will plan to see her in one year for a followup visit. She was advised to contact me prior to that if she has any problems or questions I can be of assistance with. Cordell was comfortable with this plan. Thank you again for allowing me to participate in Cordell's care. I shall continue to keep you advised of her progress. 09/28/2024 Pancreatic cyst (ICD-10 - K86.2) Need MRI report from [facility] from 06/2024 Overall, Cordell appears well. We did review her history of constipation and irritable bowel syndrome in detail. I advised her that her abdominal discomfort, gas, bloating, and her nausea were related to her several days of not having any bowel movements with associated constipation and then having the subsequent GI symptoms. As such, I recommended using the 2 Metamucil fiber pills twice a day with plenty of water and to use twice as much MiraLax. Hopefully that will allow her to have more frequent and regular bowel movements as opposed to having the current cycle of no bowel movements for several days followed by the day of frequent stools. If her bowel movements become more regular then hopefully her abdominal discomfort and other symptoms would improve as well. I advised her to stay on a high-fiber diet with a lot of water as well. We did review that she'll be due for a followup colonoscopy in 2026 for screening given her negative exam in 2016 and no family history of colon cancer. In regard to the history the incidental pancreatic cyst this seems to be very stable based on her report of the stable MRI in June. I will obtain a copy of the report. I recommended another MRI in that regard in one year as well. If things are stable I will plan to see her in one year for a followup visit. She was advised to contact me prior to that if she has any problems or questions I can be of assistance with. Cordell was comfortable with this plan. Thank you again for allowing me to participate in Cordell's care. I shall continue to keep you advised of her progress. Plan Of Treatment Pending Test Test Name Order Date CRP 07/05/2024 CBC w DIFF 07/10/2024 CBC w DIFF 07/05/2024 SED RATE (ESR) 07/05/2024 CELIAC PANEL #10 01/04/2024 STOOL WBC 07/05/2024 C DIFFICILE RFLX PCR 07/05/2024 Future Test Test Name Order Date UPPER GI ENDOSCOPY 07/24/2016 COLONOSCOPY 05/25/2017 Next Appt Details Provider Name:Amilcar Quintero Sheila , 09/27/2025 09:00:00 AM, [address] [place] [address], [facility] [address], [place], [address], Insurance Providers Payer Name Payer Address Payer Phone Subscriber Number Group Number Insured Name Patient Relationship to Insured Coverage Start Date Coverage End Date MEDICARE OF [place] [address] [place] [address] [id number] CORDELL ORDAZ Self - patient is the insured [employer] ([employer]) [address] [place], [place] [id number] CORDELL ORDAZ Self - patient is the insured Medical (General) History Medical History History ICD Code Screening colonoscopy [...] polyps Left kidney removed for cancer at [facility] by Dr. Corrales 06/2018 Partial hysterectomy and linnea dder suspension with complications of the right ureteral injury that needed stenting, then repeat laparoscopy for internal bleeding 11/18/2022 Incisional hernia repair x 2 in 2020 and 07/2023
--- OUTSIDE RECORDS SUMMARY | 2025-01-24 11:09 | XMS_ITS ---
Author Organization [facility] Address [address] [place] [address] Care Team Providers Care Plant Production Worker Name Role Phone Regino Coleman MD Primary Care Provider Unavaila Aye Chandler Unavailable [phone] REASON FOR VISIT 12/11/24 appt Encounters Encounter Location Date [facility] [address] 12/11/2024 Aye Bliss Plan Of Treatment Next Appt Details Provider Name:Aye Bliss , 02/12/2025 02:45:00 PM, [address] [place], [address], Progress Notes * Alexander HAHNeDOB: [birth year] (69 yo F)Acc No.[id number]:12/11/2024 Patient:?Rebekah HAHN :1955???Age:69 Y???Sex:Female Address:[address] [place] [address], [address] * true * Date:? Generated for Jaii mc/Thierong/eTransmitting on:?01/24/2025 11:09 AM EDT
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
--- OUTSIDE RECORDS SUMMARY | 2025-01-24 11:09 | XMS_ITS ---
Author Organization [facility] Address [address] [place] [address] Care Team Providers Care Manager Heart Failure Name Role Phone Regino Coleman MD Primary Care Provider Amilcar Jo [phone] REASON FOR VISIT advise her of her gallstones Encounters Encounter Location Date Provider Diagnosis [facility] [address] [place] [address] 09/28/2024 Amilcar Sosa Plan Of Treatment Next Appt Details Provider Name:Amilcar Sosa , 09/27/2025 09:00:00 AM, [address], [address], [place], [address], Progress Notes * CORDELL COVARRUBIAS EDOB:[birth year] (69 yo F)Acc No.[id number]:09/28/2024 Patient:?CORDELL COVARRUBIAS :1955???Age:68 Y???Sex:Female Address:[address] [place] [address] * * Date:?
--- OUTSIDE RECORDS SUMMARY | 2025-01-24 11:09 | XMS_ITS ---
Author Organization [facility] Address [address] [place] [address] Care Team Providers Care Utility Aircrewman Name Role Phone Regino Coleman MD Primary Care Provider Amilcar Jo [phone] Allergies No Known Allergies REASON FOR VISIT Patient presents today for a pancreatic cyst Medications Medication SIG (Take, Route, Frequency, Duration) [...] MOUTH AT BEDTIME Oral for 90 Active Social History Alcohol Screen Question Answer Notes Did you have a drink containing alcohol in the p ast year? No Points 0 Interpretation Negative Section Notes: Nonsmoker; no sig alcohol Vital Signs Blood pressure systolic 00 mm Hg 09/28/20 24 Blood pressure diastolic 00 mm Hg 024 Height 64 in 09/28/2024 Weight 136 lbs 09/28/2024 BMI 23.34 kg/m2 09/28/2024 Encounters Encounter Location Date Provider Diagnosis [facility] [address] [place] [address] 09/28/2024 Amilcar Sosa Gastroesophageal ref lux disease, esophagitis presence not specified K21.9 ; Irritable bowel syndrome with constipation K58.1 ; Encounter for screening for malignant neoplasm of colon Z12.11 ; Constipation, unspecified constipation type K59.00 and Pancreatic cyst K86.2 Assessments Encounter Date Diagnosis (ICD Code) Assessment [...] keep you advised of her progress. 09/28/2024 Encounter for screening for malignant neoplasm [...] (ICD-10 - K86.2) Need MRI report from [facility] from 06/2024 Overall, Cordell appears well. [...] advised of her progress. Plan Of Treatment Treatment Notes Assessment Notes Encounter for screening for malignant neoplasm of colon Repeat colonoscopy in 2026 Constipation, unspecified constipation t ype For the constipation: Increase the Metamucil to 2 pills twice a day with a lot of water. Double up on the Miralax. High fiber diet with a lot of water Pancreatic cyst Need MRI report from [facility] from 06/2024 Next Appt Details Follow Up: 1 Year, Reason: Provider Name:Amilcar Sosa , 09/27/2025 09:00:00 AM, [address] [place] [address], [address], [place], [address], Progress Notes * CORDELL COVARRUBIAS EDOB:[birth year] (68 yo F)Acc No.[id number]:09/28/2024 Progress Notes Patient:CORDELL CLARK Provider:?Amilcar Sosa MD :1955???Age:68 Y???Sex:Female D ate:09/28/2024 [facility] Pcp:Regino Coleman MD Subjective: * Chief Complaints: * ???Patient presents today fo r a pancreatic cyst * HPI: ???incontinence:? I saw Cordell in followup today in regard to her underlying history of a small pancreatic cysts consistent with IPMN, as well as her underlying history of irritable bowel syndrome and constipation. ?Since I last saw Cordell in December she has been generally feeling well. A few months ago we had communicated by phone about issues with diarrhea and subsequent constipation. She did have COVID in June that seemed to worsen her irritable bowel syndrome with associated diarrhea. Multiple stool specimens were negative for any sign of infection. Ultimately the diarrhea did improve and she is back to her usual baseline of predominantly constipation. She describes several days without any bowel movements with some associated gas, abdominal cramps, and some distention. She will then have a day of 5 or 6 soft and loose bowel movements. After that she will then have the continuing cycle of the constipation alternating with the days of frequent stools. She has been using 2 Metamucil fiber pills daily along with one half a dose of MiraLax daily. She has not noticed any hematochezia, melena, fevers, significant abdominal pain, nor vomiting. She does have some nausea, particularly in the morning with some associated abdominal bloating and gas. She denies any jaundice or weight loss. ?She does describe that she had a followup MRI of the abdomen in June with her oncologist from [facility]. They advised her that the small pancreatic cyst appeared unchanged and there was no sign of any recurrence of her previous renal cancer. ?She does advise me that she received a prescription for hyoscyamine 0.125 mg tablets from you recently for her abdominal discomfort and cramps. She has not tried it as yet. * ROS:?General/Constitutional:?Change in appetite?denies.?Chills?denies.?Fatigue?denies.?Ophthalmologic:?Comments?all negative.?ENT:?Comments?all negative.?Respiratory:?hemoptysis?denies.?Cough?denies.?Cardiovascular:?Chest pain?denies.?Orthopnea?denies.?Gastrointestinal:?Comments?See HPI for details.?Genitourinary:?Hematuria?denies.?Dysuria?denies.?Incontinence?admits.?Musculoskeletal:?Painful joints?Per [facility].?Weakness?denies.?Skin:?Itching?denies.?Rash?denies.?Neurologic:?Admits?Headache.?Seizures?denies.?Psychiatric:?Comments?all negative.? * Medical History:? * Surgical History:?Tonsillect steve Cyst removed both breasts Broken ankle/beau and screws right Left ovary removed and appy Breast biopsy -2013--breast-left--LCIS Uterine polyps Left kidney removed for cancer at [facility] by Dr. Corrales 06/2018Partial hysterectomy and bladder suspension with complications of the right ureteral injury that needed stenting, then repeat laparoscopy for internal bleeding 11/18/2022Incisional hernia repair x 2 in 2020 and 07/2023 * Hospitalization/Major Diagno stic Procedure:?No Hospitalization History. * Family History:?Father: dece ased, Stomach and prostate cancer.?Mother: 93 yrs.? No hx of colon cancer. * Social History:?Tobacco Use:?Tobacco Use/Smoking?Patient is a: nonsmoker.?Drugs/Alcohol:?Alcohol Screen?Did you have a drink containing alcohol in the past year??No,?Points?0,?Interpretation?Negative.?Miscellaneous:?Caffeine: 1-2 cups per day. Marital status: . 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 ???Nonsmoker; no sig alcohol. * Medications:?TakingMetamucil MiraLax Albuterol Sulfate HFA 108 (90 Base) MCG/ACT Aerosol Solution 1 puff as needed Inhalation every 4 hrsPropranolol HCl 10 MG Tablet 1 tablet Orally once a dayCalcium 1200 mg/100D3 Twice a dayFlonase Multivitamin traMADol HCl 50 MG Tablet TAKE 1 TABLET BY MOUTH TWICE DAILY NEEDED FOR MODERATE PAIN Oral Prilosec 20 MG Capsule Delayed Release 2 capsules Orally Once a dayAtorvastatin Calcium 20 MG Tablet TAKE 1 TABLET BY MOUTH AT BEDTIME Oral Alendronate Sodium 70 MG Tablet Oral Taking Metamucil Taking MiraLax Taking Albuterol Sulfate HFA 108 (90 Base) MCG/ACT Aerosol Solution 1 puff as needed Inhalation every 4 hrsTaking Propranolol HCl 10 MG Tablet 1 tablet Orally once a dayTaking Calcium 1200 mg/100D3 Twice a dayTaking Flonase Taking Multivitamin Taking traMADol HCl 50 MG Tablet TAKE 1 TABLET BY MOUTH TWICE DAILY NEEDED FOR MODERATE PAIN Oral Taking Prilosec 20 MG Capsule Delayed Release 2 capsules Orally Once a dayTaking Atorvastatin Calcium 20 MG Tablet TAKE 1 TABLET BY MOUTH AT BEDTIME Oral Taking Alendronate Sodium 70 MG Tablet Oral DiscontinuedFosamax Cyclobenzaprine HCl Simvastatin 20 MG Tablet 1 tablet in the evening Orally Once a dayMedication List reviewed and reconciled with the patientDiscontinued Fosamax Discontinued Cyclobenzaprine HCl Discontinued Simvastatin 20 MG Tablet 1 tablet in the evening Orally Once a dayMedication List reviewed and reconciled with the patient * Allergies:?N.K.D.A.yes[Aller gies Verified] Objective: * Vitals:?Wt: 136 lbs, Ht: 64 in, BMI:23.34 Index, BP: 00/00 mm Hg. * Examination: ???General Examination: ?GENERAL APPEARANCE:?pleasant, well nourished, well developed, in no acute distress.?EYES:?sclera non-icteric.?ORAL CAVITY:?mucosa moist.?NECK/THYROID:?no cervical lymphadenopathy, neck supple.?SKIN:?nonjaundiced, no spider angiomata.?HEART:?S1, S2 normal.?LUNGS:?clear to auscultation bilaterally.?ABDOMEN:?normal bowel sounds, no guarding or rigidity, no guarding or rigidity, no masses palpable, soft, nontender, nondistended.?EXTREMITIES:?no edema.?NEUROLOGIC:?alert and oriented.? Assessment: * Assessment: 1.?Irritable bowel syndrome with constipation - K58.1 (Primary)?2.?Gastroesophageal reflux disease, esophagitis presence not specified - K21.9?3.?Encounter for screening for malignant neoplasm of colon - Z12.11?4.?Constipation, unspecified constipation type - K59.00?5.?Pancreatic cyst - K86.2? Overall, Cordell appears well . We did review her history of constipation [...] to keep you advised of her progress. Plan: * Treatment: 2.?Constipation, unspecified constipation type? Notes: For the constipation: Increase the Metamucil to 2 pills twice a day with a lot of water. Double up on the Miralax. High fiber diet with a lot of water?? 3.?Pancreatic cyst? Notes: Need MRI report from [facility] from 06/2024?? * Procedure Codes:?3017F COLOR ECTAL CA SCREEN DOC PPY0125M TOBACCO NON-QZRVF1766 BP SCR NOT PRFRM REC REASON NOS * Preventive Medicine:? ??Urinary Incontinence:?Urinary Incontinence?Assessment:?Absent,?Plan of care documented:?Yes,?Type of plan of care:?Lifestyle interventions.? ??Screenings:?Fall Risk Screening?Fall Risk Assessment:?No falls in the past year,?Screening:?No falls in the past year,?Assessment:?Not performed, no reason specified,?Plan of Care:?Not documented, no reason specified.? * Follow Up:?1 Year * * Sign off status: Completed true * Provider:?Amilcar Sosa MD Date:? 024 Generated for Chandler bentley/Brennon/Yaneliitting on:?01/24/2025 11:09 AM EDT History and Physical Notes * HPI (History of Present Illness) Category Sub-Category Detail Notes Category Not es incontinence I saw Cordell in followup today in regard to her underlying history of a small pancreatic cysts consistent with IPMN, as well as her underlying history of irritable bowel syndrome and constipation. Since I last saw Cordell in December she has been generally feeling well. A few months ago we had communicated by phone about issues with diarrhea and subsequent constipation. She did have COVID in June that seemed to worsen her irritable bowel syndrome with associated diarrhea. Multiple stool specimens were negative for any sign of infection. Ultimately the diarrhea did improve and she is back to her usual baseline of predominantly constipation. She describes several days without any bowel movements with some associated gas, abdominal cramps, and some distention. She will then have a day of 5 or 6 soft and loose bowel movements. After that she will then have the continuing cycle of the constipation alternating with the days of frequent stools. She has been using 2 Metamucil fiber pills daily along with one half a dose of MiraLax daily. She has not noticed any hematochezia, melena, fevers, significant abdominal pain, nor vomiting. She does have some nausea, particularly in the morning with some associated abdominal bloating and gas. She denies any jaundice or weight loss. She does describe that she had a followup MRI of the abdomen in June with her oncologist from [facility]. They advised her that the small pancreatic cyst appeared unchanged and there was no sign of any recurrence of her previous renal cancer. She does advise me that she received a prescription for hyoscyamine 0.125 mg tablets from you recently for her abdominal discomfort and cramps. She has not tried it as yet. Examination Category Sub-Category Detail Notes Category Not es General Examination GENERAL APPEARANCE: pleasant , well [...]
--- OUTSIDE RECORDS SUMMARY | 2025-01-24 11:09 | XMS_ITS ---
Author Organization [facility] Address [address] [place] [address] Care Team Providers Care Permit Review Assistant Name Role Phone Regino Coleman MD Primary Care Provider Amilcar Jo [phone] Encounters Encounter Location Date Provider Diagnosis [facility] [address] [place] [address] 07/20/2024 Amilcar Sosa Plan Of Treatment Next Appt Details Provider Name:Amilcar Sosa , 09/27/2025 09:00:00 AM, [address], [address], [place], [address], Progress Notes * CORDELL COVARRUBIAS EDOB:[birth year] (68 yo F)Acc No.[id number]:07/20/2024 Patient:?CORDELL COVARRUBIAS :1955???Age:68 Y???Sex:Female Address:[address] [place] [address] * true * Date:? Generated for Chandler bentley/Brennon/eTransmitting on:?01/24/2025 11:08 AM EDT
--- OUTSIDE RECORDS SUMMARY | 2025-01-24 11:10 | XMS_ITS | Clinical Summary ---
Author Organization [facility] Facility Address [address] [address] [place] [address] Care Team Providers Care Fixed Income Manager Name Role Phone Regino Coleman MD Primary Care Provider [phone] Allergies Active Allergy Reactions Criticality Noted Date [...] of the pathology by [facility], Department of Pathology suggests that it [...] scheduled on the next available date. Immunizations Immunization Administration Dates Next Due [employer] SARS-COV-2 12/14/2020 Lat49 SARS-COV-2 08/06/2021 Pneumococcal Conjugate 13-Valent 12/29/2019 Family [...] Colorectal Cancer Screening: Sigmoidoscopy 2003 Pneumococcal Vaccine: 50+ Ye ars (2 of 2 - PPSV23) 02/23/2020 12/29/2019 Influenza Vaccine (Season Ended) 2025 Pneumococcal Vaccine: Peds ( 0 to 5 Years) and At-Risk Patients (6 to 49 Years) Discontinued 12/29/2019 Hepatitis B Vaccine Aged Out No longe r eligible based on patient's age to complete this topic Insurance Medicare [facility] Medicare [facility], [facility] RICKY ORTIZ [id number] Care Teams Fixed Income Manager Relationship Specialty Start Date End Date Regino Coleman MD [id number] RICKY CARO PCP - General 10/21/20
--- OUTSIDE RECORDS SUMMARY | 2025-01-24 11:10 | XMS_ITS ---
Author Organization [facility] Address [address] [place] [address] Care Team Providers Care Motorman/Woman Name Role Phone Regino Coleman MD Primary Care Provider Unavaila ble Black, Aye Unavailable [phone] Allergies Allergen (clinical drug ingredient) Drug/Non Drug [...] Date Performed Result Body Sit e , Q8043-LAUVO/INJECT, JOINT/BURSA 08/17/2024 N/A Encounters Encounter Location Date Provider Diagnosis [facility] [address] [place] [address] 08/17/2024 Aye Bliss Primary osteoarthritis, left ankle [...] Pending Test Test Name Order Date , M2715-JMLPZ/INJECT, JOINT/BURSA 1 10/17/2023 Next Appt Details Follow Up: 4 Months, Reason: Provider Name:Aye Miranda Izaiah , 02/12/2025 02:45:00 PM, [address] [place], [address], Procedure Notes * Category Sub-Category Detail Notes [...] * Ashvin HAHNOB: [birth year] (68 yo F)Acc No.[id number]:08/17/2024 Progress Note Patient:?Rebekah Hahn Provider:?Aye Bliss DPM :1955???Age:68 Y???Sex:Female D ate:08/17/2024 Address:[address] [place], [place] [address] Pcp:Regino Coleman MD Subjective: * Chief Complaints: [...] 11/18/22Hernia Surgery 08/03/23 * Hospitalization/Major Diagno stic Procedure:?[facility] for a day bad reaction [...] * Procedure Codes:?J0702 INJ B ETAMETHSN ACTAT&SOD PHOSPH-[id number] DRAIN/INJECT, JOINT/BURSA, Modifiers: XS * Follow Up:?4 Months * Images: * Sign off status: Completed true * Provider:?Aye Bliss DPM Date:?2023 Generated for Chandler bentley/rBennon/Nirav on:?01/24/2025 11:09 AM EDT History and Physical [...]
--- OUTSIDE RECORDS SUMMARY | 2025-01-24 11:10 | XMS_ITS | Patient Health Record ---
Author Organization [facility] Address [address] [place] [address] Care Team Providers Care Sap Crm Developer Name Role Phone Regino Coleman MD Primary Care Provider Unavaila ble Black, Aye Unavailable [phone] Allergies Allergen (clinical drug ingredient) Drug/Non Drug Allergy documented on EMR Reaction Allergy Type Onset Date Status fentanyl Fentanyl Unknown Drug Allergy Active Reason For Referral No Information Medications Medication SIG (Take, Route, Frequency, Duration) Notes Start Date End Date Status Vitamin D3 Active Naproxen 500 MG 1 tablet as needed Orally every 12 hrs Not-Taking Letrozole 2.5 MG Orally Not -Taking Gabapentin Not-Takin g Topiramate once a day Not-Taki ng Ammonium Lactate 12 % 1 application Externally Twice a day for 30 days Active traMADol HCl 2x a day prn Acti ve Inderal XL Active Lyrica 100 MG 1 capsule Orally Twice a day Not-Taking Flonase 50 MCG/ACT 1 spray in each nostril Nasally Once a day for 30 day(s) Active Fluoxetine Not-Takin g Simvastatin 20 MG 1 tablet in the evening Orally Once a day for 30 day(s) Active Centrum Active Meloxicam 15 MG 1 tablet Orally Once a day for 30 Not-Taking Calcium Active Amitriptyline HCl No t-Taking Tamoxifen Citrate No t-Taking Immunizations Vaccine Route Administration Date Status Comme [...] ast year? No Points 0 Interpretation Negative Problems Problem Type SNOMED Code ICD Code Onset Dates Problem Status W/U Status Risk Notes Problem Acquired hallux valgus (27962693) Hallux valgus (acquired), left foot (M20.12) Active confirmed Problem Plantar wart (06720386) Plantar wart (B07.0) Active confirmed Problem Localized, primary osteoarthritis of the ankle and/or foot (087289667) Primary osteoarthrit is, left ankle and foot (M19.072) Active confirmed Problem Acquired hallux valgus (91565877) Hallux valgus (acquired), right foot (M20.11) Active confirmed Problem Acquired hallux valgus (41850465) Hallux valgus (acquired), left foot (M20.12) Active confirmed Problem Acquired hammer toe of right foot (5022037988157032) Other hammer toe(s) (acquired), right foot (M20.41) Active confirmed Vital Signs Height 5ft3in in 08/17/2024 Weight 138 lbs 08/17/2024 BMI 24.44 kg/m2 08/17/2024 Procedures Procedure Date Ordered Date Performed Result Body Sit e , C0458-PEYII/INJECT, JOINT/BURSA 02/28/2024 N/A , G7591-QGQEN/INJECT, JOINT/BURSA 08/17/2024 N/A Encounters Encounter Location Date Provider Diagnosis [facility] [address] [address] 02/28/2024 Aye Black Primary osteoarthritis, left ankle and foot M19.072 ; Joint pain M25.50 ; Neuralgia and neuritis, unspecified M79.2 ; Hypertrophy of bone, 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 ; Pain in left foot M79.672 ; Bunionette of left foot M21.622 and Xerosis of skin L85.3 [facility] [address] [address] 08/17/2024 Aye Bliss Primary osteoarthritis, left ankle and foot M19.072 ; Joint pain M25.50 ; Neuralgia and neuritis, unspecified M79.2 ; Hypertrophy of bone, 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 and Pain in left foot M79.672 [facility] [address] [place] [address] 06/30/2024 Ayestephen Bliss [facility] [place] [address] [place] [address] 12/11/2024 Aye Bliss Assessments Encounter Date Diagnosis (ICD [...] X ray : Foot, right 3V 04/24/2013 51334-Wtcz Destruction, 1-14 02/08/2023 94927-Kphv Destruction, 1-14 12/08/2021, F7419-TIXCL/INJECT, JOINT/BURSA 0 04/06/2022 65756, Z3598-JHUAB/INJECT, JOINT/BURSA 1 18979, L6567-MGIRC/INJECT, JOINT/BURSA 0 02/08/2023 75055, S6780-WVCHY/INJECT, JOINT/BURSA 1 11/02/2019 46749, E2469-PSHHV/INJECT, JOINT/BURSA 0 01/02/202199114, Y1381-RQDIY/INJECT, JOINT/BURSA 0 05/05/202110263, S6496-YGTDN/INJECT, JOINT/BURSA 1 , L6109-QKBXM/INJECT, JOINT/BURSA 0 12/08/2021, U9057-DHNEQ/INJECT, JOINT/BURSA 0 04/08/2016 17773, L8173-HUZZR/INJECT, JOINT/BURSA 0 11/02/2016 83576, R1629-WPCNH/INJECT, JOINT/BURSA 0 01/26/2017 21744, M4066-HAHBF/INJECT, JOINT/BURSA 1 11/24/2016 75408, A7713-XGUJG/INJECT, JOINT/BURSA 0 12/10/2017 53848, J7134-QPJUG/INJECT, JOINT/BURSA 0 03/14/2018 14090, G8922-BJQOK/INJECT, JOINT/BURSA 1 10/29/2017 20392, Z0387-IWRCQ/INJECT, JOINT/BURSA 0 12/19/2018 18609, P0512-KGGJC/INJECT, JOINT/BURSA 0 04/20/2019 99270, F7018-PIRWA/INJECT, JOINT/BURSA 1 10/24/2018 96909, O1162-YUXFL/INJECT, JOINT/BURSA 0 01/01/2020 50671, E7015-XRGZS/INJECT, JOINT/BURSA 0 06/21/2023 03168, Y9512-VYWDL/INJECT, JOINT/BURSA 0 11/01/2023 34623, Y2947-FAKMY/INJECT, JOINT/BURSA 0 02/28/2024 81461, C0294-ZYOIC/INJECT, JOINT/BURSA 1 10/17/2023 21135,W1198-SMZ TENDON SHEATH/LIGAMENT 0 05/02/2020 Next Appt Details Provider Name:Aye Bliss , 02/12/2025 02:45:00 PM, [address] [place], [address], Insurance Providers Payer Name Payer Address Payer Phone Subscriber Number Group Number Insured Name Patient Relationship to Insured Coverage Start Date Coverage End Date Medicare [facility] [email or web address] [address] [place] [address] [id number] Rebekah Suh Self - patient is the insured [employer] ([employer]) [address] [place], [place] [id number] [id number] Rebekah Suh Self - patient is [...] Hernia Surgery 08/03/23 Hospitalization History Reason Date(Month/Year) [facility] for a day bad reaction to fentanyl w hen colonoscopy was done 08/2017
== END 2025-01-24 10:35 | disposition home or self-care (01) ==
LOC: HO.HMCHD 09:51
PROVIDERS: PCP Internal Medicine; Visit Provider Internal Medicine
DX: N18.9 Chronic kidney disease, unspecified (principal); M19.90 Unspecified osteoarthritis, unspecified site

== ENCOUNTER 2025-01-24 09:51 | Outpatient (REF) | payer MEDICARE, OTHER, SELFPAY ==
--- NOTE | ~2025-01-24 | XR_ITS ---
EXAMINATION: XR CHEST 2 VIEWS HISTORY: R05.9 - Cough, unspecified COMPARISON: Comparison is made with the prior examination dated 09/07/2023. FINDINGS: PA and lateral views of the chest are submitted. The lungs are expanded and clear. There is no pleural effusion, pneumothorax, or pulmonary vascular congestion. The heart is normal in size. There is mild degenerative disc disease of the spine. XR/XR chest 2V IMPRESSION: No acute cardiopulmonary abnormality. Electronically signed by: Amilcar Pacheco MD 01/25/2025 08:09 AM EDT
--- OUTSIDE RECORDS SUMMARY | 2025-01-24 12:51 | XMS_ITS | Clinical Summary ---
Author Organization [facility] Facility Address [address] [facility] [address] [place] [address] Care Team Providers Care Director Of Promotions Name Role Phone Regino Coleman MD Primary Care Provider [phone] Allergies Active Allergy Reactions Criticality Noted Date [...] of the pathology by [facility], Department of Pathology suggests that [...] date. Immunizations Immunization Administration Dates Next Due [employer] SARS-COV-2 12/14/2020 [employer] SARS-COV-2 08/06/2021 Pneumococcal Conjugate 13-Valent 12/29/2019 Family [...] age to complete this topic Insurance Medicare Count Includes [facility] Medicare Count Includes [facility] RICKY ORTIZ [id number] Care Teams Director Of Promotions Relationship Specialty Start Date End Date Regino Coleman MD [id number] RICKY CARO PCP - General 10/21/20
--- OUTSIDE RECORDS SUMMARY | 2025-01-24 12:51 | XMS_ITS | Encounter Summary ---
Author Organization [facility] Address [address] [place] [address] Phone Care Team Providers Care Sales Representative [employer] Name Role Phone Regino Coleman MD Primary Care Provider [phone] Encounter Details Date Type Department Care Team (Late st Contact Info) Description 01/06/2023 Telephone [facility] [address] [place] [address] Ying Medrano Social History Tobacco [...] appt w/ [facility] and fax order to [facility] and they will call and book sooner appt. Pt stated that she is going to see her manager of distribution in 2 weeks and her MD stated she will do th US in office. Pls advise if you would like her manager of distribution to do US or move forward with the hospital. Her manager of distribution does not have a radiology department. * Telephone Encounter - Ying Medrano - 01/06/2023 9:51 AM EDT PT says she has renal ultrasound scheduled for 03/01/23. PT wants to be seen sooner, she is asking for an earlier appointment and is willing to commute to [place] if she can get a sooner appointment. documented in this encounter Plan of Treatment Not on file documented as of this encounter Visit Diagnoses Not on filedocumented in this encounter Care Teams Sales Representative [employer] Relationship Specialty Start Date End Date Regino Coleman MD [address] [place] [address] DRIVE [id number] VANIA DE PCP - General 10/21/20 documented as of this encounter
--- OUTSIDE RECORDS SUMMARY | 2025-01-24 12:51 | XMS_ITS | Encounter Summary ---
Author Organization [facility] Address [address] [place] [address] Phone Care Team Providers Care Design Teacher Name Role Phone Regino Coleman MD Primary Care Provider [phone] Encounter Details Date Type Department Care Team (Late st Contact Info) Description 11/25/2022 Telephone [facility] [address] [place] [address] Ying Medrano Social History Tobacco [...] called to relay that Dr. Reyes from [facility] had recently put a stent in [...] on filedocumented in this encounter Care Teams Design Teacher Relationship Specialty Start Date End Date Regino Coleman MD [address] [place] PCP - General 10/21/20 documented as of this encounter
[2025-01-24 14:55] LABS: Hematocrit 40.5 % (37.0-47.0); Mean Corpuscular HGB Conc 32.1 g/dl (31.0-35.0); Mean Corpuscular Hemoglobin 29.6 pg (27.0-33.0); Mean Corpuscular Volume 92.3 fL (80.0-98.0); Mean Platelet Volume 9.1 fL (9.4-12.3); Platelet Count 500 X10*3/uL (160-400); Red Blood Count 4.39 X10*6/uL (4.20-5.50); Red Cell Distribution Width 12.5 % (11.0-16.0)
[2025-01-24 16:26] LABS: Alanine Aminotransferase 38 U/L (0-31); Alkaline Phosphatase 92 U/L (39-117); Anion Gap 11 (12-20); Aspartate Amino Transferase 29 U/L (5-31); Bilirubin Direct 0.2 mg/dL (0.0-0.5); Bilirubin Total 0.7 mg/dL (0.0-1.0); Blood Urea Nitrogen 10 mg/dL (9-16); Calcium 9.9 mg/dL (8.4-10.2); Carbon Dioxide 27 mmol/L (22-29); Chloride 110 mmol/L (96-108); Cholesterol 184 mg/dL (<200); Estimated Glomerular Filt Rate 49; Glucose Random 112 mg/dL (60-115); HDL Cholesterol 56 mg/dL (>40); LDL Cholesterol Calculated 83 mg/dL (<100); Potassium 4.9 mmol/L (3.3-5.1); Sodium 143 mmol/L (135-145); Triglycerides 226 mg/dL (<150)
[2025-01-24 16:29] LABS: Erythrocyte Sedimentation Rate 34 MM/HR (0-20)
[2025-01-24 16:44] LABS: Thyroid Stimulating Hormone 1.33 uIU/mL (0.32-4.0)
== END 2025-01-24 09:52 | disposition home or self-care (01) ==
LOC: HO.XRAY 09:51
PROVIDERS: PCP Internal Medicine; Visit Provider Internal Medicine
DX: N18.31 Chronic kidney disease, stage 3a (principal); M19.90 Unspecified osteoarthritis, unspecified site; R05.9 Cough, unspecified; Z85.3 Personal history of malignant neoplasm of breast; Z85.528 Personal history of other malignant neoplasm of kidney; Z13.29 Encounter for screening for other suspected endocrine disorder
CPT/HCPCS: 36415; 71046; 80048; 80061; 80076; 84443; 85027; 85652; 96127; 99202

== ENCOUNTER → 2025-01-24 10:52 | Outpatient (BNV) | payer MEDICARE, OTHER, SELFPAY | PROVIDERS: PCP Internal Medicine; Visit Provider Radiology Diagnostic Radiology | DX: R05.9 Cough, unspecified (principal) | CPT/HCPCS: 71046 ==

== ENCOUNTER 2025-01-25 11:13 | Outpatient (REF) | payer MEDICARE, OTHER, SELFPAY ==
[2025-01-25 11:46] LABS: Appearance Urine Clear; Color Urine Yellow; Glucose Urine UA Negative (Negative); Leukocyte Esterase Urine Moderate (2+) (Negative); Nitrite Urine Negative (Negative); Specific Gravity - Urine 1.015 (1.005-1.025); UMIC TRIGGER UA YES; Urine Blood Moderate (2+) (Negative); Urine Ketones Negative (Negative); Urine Protein Negative (Neg-Trace)
[2025-01-25 11:58] LABS: Bacteria Urine None Seen (None Seen); Hyaline Casts Urine 0-2 /LPF (0-2); WBC Urine >50 /HPF (0-5)
--- OUTSIDE RECORDS SUMMARY | 2025-01-25 13:51 | XMS_ITS | Encounter Summary ---
Author Organization [facility] Address [address] [place] [address] Phone Care Team Providers Care Linux Programmer Name Role Phone Regino Coleman MD Primary Care Provider [phone] Encounter Details Date Type Department Care Team (Late st Contact Info) Description 11/25/2022 Telephone [facility] [address] [place] [address] Ying Medrano Social History Tobacco [...] called to relay that Dr. Reyes from [facility] had recently put a stent in [...] on filedocumented in this encounter Care Teams Linux Programmer Relationship Specialty Start Date End Date Regino Coleman MD [address] [place] PCP - General 10/21/20 documented as of this encounter
--- OUTSIDE RECORDS SUMMARY | 2025-01-25 13:51 | XMS_ITS | Encounter Summary ---
Author Organization [facility] Address [address] [place] [address] Phone Care Team Providers Care Skein Winder Name Role Phone Regino Coleman MD Primary Care Provider [phone] Encounter Details Date Type Department Care Team (Late st Contact Info) Description 01/06/2023 Telephone [facility] [address] [place] [address] Ying Medrano Social History Tobacco [...] appt [facility] and fax order to [facility] and they will call and book sooner appt. Pt stated that she is going to see her casting machine adjuster in 2 weeks and her MD stated she will do th US in office. Pls advise if you would like her casting machine adjuster to do US or move forward with the hospital. Her casting machine adjuster does not have a radiology department. * Telephone Encounter - Ying Medrano - 01/06/2023 9:51 AM EDT PT says she has renal ultrasound scheduled for 03/01/23. PT wants to be seen sooner, she is asking for an earlier appointment and is willing to commute to [place] if she can get a sooner appointment. documented in this encounter Plan of Treatment Not on file documented as of this encounter Visit Diagnoses Not on filedocumented in this encounter Care Teams Skein Winder Relationship Specialty Start Date End Date Regino Coleman MD [address] [place] [address] DRIVE [address] [place] PCP - General 10/21/20 documented as of this encounter
--- OUTSIDE RECORDS SUMMARY | 2025-01-25 13:52 | XMS_ITS ---
Author Organization [facility] Address [address] [place] [address] Care Team Providers Care Education Faculty Member Name Role Phone Regino Coleman MD Primary Care Provider Unavaila ble Black, Aye Unavailable [phone] Allergies Allergen (clinical drug ingredient) Drug/Non Drug [...] Negative Encounters Encounter Location Date Provider Diagnosis [facility] [place] [address] [place] [address] 12/11/2024 Aye Bliss Plan Of Treatment Next Appt Details Provider Name:Aye Bliss , 02/12/2025 02:45:00 PM, [address] [place], [address], Progress Notes * Alexander HAHNHilarioOB: [birth year] (69 yo F)Acc No.[id number]:12/11/2024 Progress Note Patient:?Rebekah HAHN Provider:?Aye Bliss DPM :1955???Age:69 Y???Sex:Female D ate:12/11/2024 Address:[address] [place] [id number] Pcp:Regino Coleman MD Subjective: * Chief Complaints: [...] Bliss DPM Date:?2024 Generated for Chandler bentley/Brennon/Nirav on:?01/25/2025 01:52 PM EDT
--- OUTSIDE RECORDS SUMMARY | 2025-01-25 13:52 | XMS_ITS | Patient Health Record ---
Author Organization [facility] Address [address] [place] [address] Care Team Providers Care Partner Cco Name Role Phone Regino Coleman MD Primary Care Provider Amilcar Jo Unavailable [phone] Allergies No Known Allergies Results Component Value Reference Range Notes Calprotectin, Fecal Reviewed date:07/21/2024 12:26:40 PM Interpretation: Performing Lab:[facility], [address] [place] [phone] Notes/Report: Calprotectin, Fecal 10 Reference Range: <50 [...] borderline values. THIS TEST WAS PERFORMED AT: [facility] [address] [place] [address] RAFFY WITT MD,PHD,CH[facility]RA GI PANEL Reviewed date:07/08/2024 08:13:38 PM Interpretation: Performing Lab:[address] [address] Notes/Report: Campylobacter Not Detected Not Detect. Plesiomonas [...] is performed by Multiplexed PCR, utilizing the MiniMonos Array. Complete Blood Count Auto Di ff Reviewed date:07/06/2024 12:32:00 PM Interpretation: Performing Lab:[facility], [address] [place] [address] Notes/Report: White Blood Count 7.2 4.8-10.8 X10*3/uL [...] te Reviewed date:07/06/2024 04:52:01 PM Interpretation: Performing Lab:[address] [address] Notes/Report: Erythrocyte Sedimentation Rate 8 0-20 MM/HR Patients with polycythemia and many hemoglobin abnormalities may have depressed sed rates whereas patients with anemia may have elevated sed rates. C Reactive Protein Reviewed date:07/06/2024 04:51:54 PM Interpretation: Performing Lab:[facility], [address] [place] [phone] Notes/Report: C Reactive Protein < 0.10 < or = 0.50 mg/dL Leukocytes Stool Qualitative Reviewed date:07/08/2024 08:12:59 PM Interpretation: Performing Lab:[address] [address] Notes/Report: Leukocytes Stool Qualitative NEGATIVE NEGATIVE CDiff Gene PCR Reviewed date:07/08/2024 08:12:52 PM Interpretation: Performing Lab:[facility], [address] [place] [phone] Notes/Report: CDiff Gene PCR NEGATIVE Negative If C. difficile strongly suspected despite one negative test, a second test may be sent vs. empiric treatment for C. difficile infection. Complete Blood Count Auto Di ff Reviewed date:08/01/2024 12:13:53 PM Interpretation: Performing Lab:[facility], [address] [place] [phone] Notes/Report: White Blood Count 7.1 4.8-10.8 X10*3/uL [...] Problem Status W/U Status Risk Notes Problem 397252769 Encounter for screening for malignant neoplasm of colon (Z12.11) Active confirmed Problem Diarrhea (02725089) Diarrhea (R19.7) Active confirmed Problem Screening for malignant neoplasm of rectum (859449808) Encounter for screening for malignant neoplasm of rectum (Z12.12) Active confirmed Problem 86029932 Blood in stool (K92.1) Active confirmed Problem 963411139 Gastroesophageal reflux disease without esophagitis (K21.9) Active confirmed Problem 049506020 Gastroesophageal reflux disease, esophagitis presence not specified (K21.9) Active confirmed Problem Pancreatic cyst (72112506) 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) Active confirmed Problem 14142916 Constipation, unspecified constipation type (K59.00) Active confirmed Problem 634982888 Abdominal pain, left lower quadrant (R10.32) Active confirmed Problem Irritable bowel syndrome characterized by constipation (869997081) Irritable bowel syndrome with constipation (K58.1) Active confirmed Problem Thrombocytosis (disorder) (1455758) Thrombocytosis, unspecified (D75.839) Active confirmed Vital Signs Blood pressure diastolic 00 mm Hg 09/28/2024 Height 64 in 09/28/2024 Blood pressure systolic 00 mm Hg 09/28/2024 Weight 136 lbs 09/28/2024 BMI 23.34 kg/m2 09/28/2024 Encounters Encounter Location Date Provider Diagnosis [facility] [address] [place] [address] 09/28/2024 Amilcar Sosa Gastroesophageal ref lux disease, esophagitis presence not specified K21.9 ; Irritable bowel syndrome with constipation K58.1 ; Encounter for screening for malignant neoplasm of colon Z12.11 ; Constipation, unspecified constipation type K59.00 and Pancreatic cyst K86.2 [facility] [address] [place] [address] 09/28/2024 Amilcar Sosa [facility] [address] [place] [address] 06/28/2024 Amilcar Sosa [facility] [address] [place] [address] 07/05/2024 Amilcar Sosa Diarrhea R19.7 [facility] [address] [place] [address] 07/10/2024 Amilcar Sosa Diarrhea R19.7 and Thrombocytosis, unspecified D75.839 [facility] [address] [place] [address] 07/20/2024 Amilcar Sosa Assessments Encounter Date Diagnosis [...] (ICD-10 - K86.2) Need MRI report from [facility] from 06/2024 Overall, Cordell appears well. [...] 05/25/2017 Next Appt Details Provider Name:Amilcar Quintero hSeila , 09/27/2025 09:00:00 AM, [address] [place] [address], [facility] [address], [place], [address], Insurance Providers Payer Name Payer Address Payer Phone Subscriber Number Group Number Insured Name Patient Relationship to Insured Coverage Start Date Coverage End Date MEDICARE OF [place] [address] [place] [address] [id number] CORDELL ORDAZ Self - patient is the insured [employer] (Schedule Savvy) [address] [place], [place] [address] [id number] CORDELL ORDAZ Self - patient is the insured Medical (General) History Medical History History ICD Code Screening colonoscopy 05-24-2009--negativ e EGD 01-05-2002 and in 11/2016--small HH, n o esophagitis, no Hernandes's Asthma--presently asymptomatic 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 Dillard Mitral valve prolapse Lyme's disease/Fibromyalgia--Amitryptile ne and Gabapentin Migraines-on Propranolol Hyperlipidemia Arthritis in left foot--Meloxicam/Cortis one injections Denies [place],DM,CVA,renal disease Renal cancer with surgery in 06/2018 [...] polyps Left kidney removed for cancer at [facility] by Dr. Corrales 06/2018 Partial hysterectomy and linnea dder suspension with complications of the right ureteral injury that needed stenting, then repeat laparoscopy for internal bleeding 11/18/2022 Incisional hernia repair x 2 in 2020 and 07/2023
--- OUTSIDE RECORDS SUMMARY | 2025-01-25 13:52 | XMS_ITS ---
Author Organization [facility] Address [address] [place] [address] Care Team Providers Care College Tutor Name Role Phone Regino Coleman MD Primary Care Provider Amilcar Jo [phone] Encounters Encounter Location Date Provider Diagnosis [facility] [address] [place] [address] 07/20/2024 Amilcar Sosa Plan Of Treatment Next Appt Details Provider Name:Amilcar Sosa , 09/27/2025 09:00:00 AM, [address], [place], [address], Progress Notes * CORDELL COVARRUBIAS EDOB:[birth year] (68 yo F)Acc No.[id number]:07/20/2024 Patient:?CORDELL COVARRUBIAS :1955???Age:68 Y???Sex:Female Address:[address] [place] [address] * true * Date:? Generated for Chandler bentley/Brennon/eTransmitting on:?01/25/2025 01:52 PM EDT
--- OUTSIDE RECORDS SUMMARY | 2025-01-25 13:53 | XMS_ITS ---
Author Organization [facility] Address [address] [place] [address] Care Team Providers Care Brick Handler Name Role Phone Regino Coleman MD Primary Care Provider Amilcar Jo [phone] Allergies No Known Allergies REASON FOR VISIT [...] 09/28/2024 Encounters Encounter Location Date Provider Diagnosis [facility] [address] [place] [address] 09/28/2024 Amilcar Sosa Gastroesophageal ref lux disease, [...] (ICD-10 - K86.2) Need MRI report from [facility] from 06/2024 Overall, Cordell appears well. [...] water Pancreatic cyst Need MRI report from [facility] from 06/2024 Next Appt Details Follow Up: 1 Year, Reason: Provider Name:Amilcar Sosa , 09/27/2025 09:00:00 AM, [address] [place] [address], [address], [place], [address], Progress Notes * CORDELL COVARRUBIAS EDOB:[birth year] (68 yo F)Acc No.[id number]:09/28/2024 Progress Notes Patient:CORDELL CLARK Provider:?Amilcar Sosa MD :1955???Age:68 Y???Sex:Female D ate:09/28/2024 [facility] Pcp:Regino Coleman MD Subjective: * Chief Complaints: [...] abdomen in June with her oncologist from [facility]. They advised her that the small pancreatic [...] 3.?Pancreatic cyst? Notes: Need MRI report from [facility] from 06/2024?? * Procedure Codes:?3017F COLOR ECTAL CA SCREEN DOC NNT6106B TOBACCO NON-[id number] BP SCR NOT PRFRM REC REASON NOS [...] MD Date:? 024 Generated for Chandler bentley/Brennon/Yaneliitting on:?01/25/2025 01:53 PM EDT History and Physical Notes * HPI [...] abdomen in June with her oncologist from [facility]. They advised her that the small pancreatic [...]
--- OUTSIDE RECORDS SUMMARY | 2025-01-25 13:54 | XMS_ITS ---
Author Organization [facility] Address [address] [place] [address] Care Team Providers Care Log Skidder Name Role Phone Regino Coleman MD Primary Care Provider Amilcar Jo [phone] REASON FOR VISIT advise her of her gallstones Encounters Encounter Location Date Provider Diagnosis [facility] [address] [place] [address] 09/28/2024 Amilcar Sosa Plan Of Treatment Next Appt Details Provider Name:Amilcar Sosa , 09/27/2025 09:00:00 AM, [address], [address], [place], [address], Progress Notes * CORDELL COVARRUBIAS EDOB:[birth year] (69 yo F)Acc No.[id number]:09/28/2024 Patient:?CORDELL COVARRUBIAS :1955???Age:68 Y???Sex:Female Address:[address] [place] [address] * * Date:?
--- OUTSIDE RECORDS SUMMARY | 2025-01-25 13:54 | XMS_ITS | Clinical Summary ---
Author Organization [facility] Address [address] [facility] [address] [place] [address] Care Team Providers Care Rn Clinical Name Role Phone Regino Coleman MD Primary Care Provider [phone] Allergies Active Allergy Reactions Criticality Noted Date [...] of the pathology by [facility], Department of Pathology suggests that it [...] date. Immunizations Immunization Administration Dates Next Due Tiange SARS-COV-2 12/14/2020 Cubicle SARS-COV-2 08/06/2021 Pneumococcal Conjugate 13-Valent 12/29/2019 Family [...] age to complete this topic Insurance Medicare [facility] Medicare [facility] [place] [id number] Care Teams Rn Clinical Relationship Specialty Start Date End Date Regino Coleman MD [address] [place] PCP - General 10/21/20
== END 2025-01-25 11:14 | disposition home or self-care (01) ==
LOC: HO.LNP 11:13
PROVIDERS: Visit Provider Internal Medicine Hypertension Specialist
DX: N18.30 Chronic kidney disease, stage 3 unspecified (principal)
CPT/HCPCS: 81001

== ENCOUNTER 2025-02-27 10:28 | Outpatient (AMB) | payer MEDICARE, OTHER, SELFPAY ==
--- NOTE | 2025-02-27 11:38 | AM.OFFWIN_ITS ---
Intake Vital Signs 02/27/25 11:39 Weight 136 lb BP 130/90 H Blood Pressure Location Rt brachial Position Sitting Pulse 62 Pulse Source Pulse Oximeter Pulse Oximetry (%) 98 Oxygen Delivery Method Room Air Intake Visit Reasons: EP Back pain Intake Note: Patient here for back pain that started yesterday. she states she was gardening yesterday. Patient Tobacco Use Status: Never used Tobacco Allergies fentanyl [FENTANYL] Allergy (Severe, Verified 02/27/25 11:39) SEVERE VOMITING, severe headache, vomiting sulfamethoxazole [From BACTRIM] Allergy (Severe, Verified 02/27/25 11:39) CANNOT TAKE-ONLY HAS ONE KIDNEY trimethoprim [From BACTRIM] Allergy (Severe, Verified 02/27/25 11:39) CANNOT TAKE-ONLY HAS ONE KIDNEY azithromycin [AZITHROMYCIN] Allergy (Intermediate, Verified 02/27/25 11:39) DIARRHEA Do you need a note to return to daycare/school/sports/work: No HPI HPI Comments History of Present Illness Details History of Present Illness - The patient is a 69 year old female pr esenting with acute low back pain. - Onset was the previous day during ernst ening involving sustained kneeling and an upright transition, resulting in sharp pain primarily on the right side. - Pain described as sharp and shooting, with distribution to the right buttocks without leg involvement. - History of slipped discs, reporting in creased severity and pain upon standing. - Current pain management with acetamino phen and tramadol, with historically limited options due to having only one kidney, doesn't use NSAIDS - Previous arthritis treatment ceased po st-nephrectomy; NSAID use contr aindicated. - Ice and heat application utilized with limited symptomatic relief. - no loss of control of bladder or bowel s Physical Exam General: Cooperative, healthy appearing, comfortable, no acute distress and well developed Orientation: Patient oriented x3 Limitations: No limitations Head: Normal to inspection Ears: Hearing grossly normal bilaterally Nose: Normal External nose present Face and sinus: Normal facial exam Eyes: Appearance normal, both eyes and all related structures Neck: Normal visual inspection and Yes full ROM Respiratory: Normal respiratory effort and able to speak in complete sentences Back/spine: no ttp cervical, thoracic or lumbar pain, no ttp right paraspinous into right buttocks Skin: No rashes or lesions noted Neuro: Patient oriented x3 Extremities: Normal to inspection [facility] Medical History Liver mass Ventral hernia Family history of prostate cancer 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 Prolapse of uterus Vaginal prolapse Incisional hernia 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 History of kidney cancer Chronic kidney disease Migraines Osteoarthritis Fibromyalgia Hypercholesteremia Surgical History History of colonoscopy (~08/12/17) History of hernia repair H/O hysterectomy for benign disease Hx of surgical procedure (~08/03/23) H/O vaginal hysterectomy History of incisional hernia repair (~11/29/19) History of nephrectomy, left (~06/2018) Status post biopsy of kidney (~04/2018) History of breast biopsy (~05/11/14) History of tonsillectomy and adenoidectomy S/P removal of left ovary (~1978) History of removal of cyst (~1972) History of ankle surgery (~2003) H/O kidney removal History of breast surgery Hx of tonsillectomy Family History Father Stomach cancer Prostate cancer High cholesterol Sister Stroke Mother High cholesterol CLL (chronic lymphocytic leukemia) Maternal Aunt Breast cancer Social History Household Members: Spouse Housing: House Alcohol intake: current Alcohol intake frequency: holidays/special occasions only Patient Tobacco Use Status: Never used Tobacco e-Cigarette/Vaping Use: Never Used Advance Directives Date on File: 07/25/20 service: No Current occupational status: 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 Sexual orientation: Straight/Heterosexual Gender identity: Female Cognitive needs: No Hearing needs: Yes (bilateral hearing aids) Vision needs: Yes (rx glasses) Female Reproductive History Menstrual Age of Menarche: 10 Review of Systems Const All systems reviewed & are unremarkable except as noted in HPI and below Physical Exam Vital Signs: Last Vital Signs Pulse 62 02/27/25 11:39 BP 130/90 H 02/27/25 11:39 Pulse Ox 98 02/27/25 11:39 Oxygen Delivery Method Room Air 02/27/25 11:39 Assessment & Plan Assessment & Plan (1) Right-sided low back pain with right-sided sciatica: Code(s): M54.41 - Lumbago with sciatica, right side Qualifiers: Chronicity: acute Qualified Code(s): M54.41 - Lumbago with sciatica, right side Plan: Prednisone is prescribed at 50 mg for five days to address inflammation underlying the acute low back pain related to sciatica, considering the patient's contraindication for NSAIDs due to her renal history. Concurrently, a 10 mg muscle relaxant is prescribed to help alleviate possible spasmodic contributions to pain, with instructions to adjust the dosage based on effectiveness. Caution is advised to avoid concurrent use of tramadol with the muscle relaxant due to sedation risks. The patient is counseled to continue acetaminophen, not NSAIDs, and to employ ice and heat therapy for additional symptomatic relief. A follow-up is recommended if symptoms persist, with consideration for physical therapy or further evaluation of her renal condition in collaboration with her florist manager if needed. Any loss of control of bladder or bowels, she was instructed to go to the ED. Patient was informed and verbally consented to the use of an ambient scribe for clinic note documentation during this visit. Medications: New cyclobenzaprine 10 mg (2 x 5 mg) PO Q8H PRN 20 tabs 0RF Muscle Spasm prednisone 50 mg PO QAM 5 tabs 0RF Coding Level of Care Code Est Pt Level 3 (50213) Diagnoses Acute right-sided low back pain with right-sided sciatica M54.41 Chronicity: acute
[2025-02-27 11:39] VITALS: BP 130/90; PULSE 62; O2SAT 98
--- OUTSIDE RECORDS SUMMARY | 2025-02-27 11:40 | XMS_ITS | Encounter Summary ---
Author Organization [facility] Address [address] [place] [address] Phone Care Team Providers Care Store Shopper Name Role Phone Regino Coleman MD Primary Care Provider [phone] Encounter Details Date Type Department Care Team (Late st Contact Info) Description 01/06/2023 Telephone [facility] [address] [place] [address] Ying Medrano Social History Tobacco [...] [facility] and [facility] order to [facility] and they will call and book sooner appt. Pt stated that she is going to see her firearms specialist in 2 weeks and her MD stated she will do th US in office. Pls advise if you would like her firearms specialist to do US or move forward with the hospital. Her firearms specialist does not have a radiology department. * Telephone Encounter - Ying Medrano - 01/06/2023 9:51 AM EDT PT says she has renal ultrasound scheduled for 03/01/23. PT wants to be seen sooner, she is asking for an earlier appointment and is willing to commute to [place] if she can get a sooner appointment. documented in this encounter Plan of Treatment Not on file documented as of this encounter Visit Diagnoses Not on filedocumented in this encounter Care Teams Store Shopper Relationship Specialty Start Date End Date Regino Coleman MD [address] [place] [address] DR[address] [place] PCP - General 10/21/20 documented as of this encounter
--- OUTSIDE RECORDS SUMMARY | 2025-02-27 11:40 | XMS_ITS | Encounter Summary ---
Author Organization [facility] Address [address] [place] [address] Phone Care Team Providers Care Special Class Welder Name Role Phone Regino Coleman MD Primary Care Provider [phone] Encounter Details Date Type Department Care Team (Late st Contact Info) Description 11/25/2022 Telephone [facility] [address] [place] [address] Ying Medrano Social History Tobacco [...] called to relay that Dr. Reyes from [facility] had recently put a stent in [...] on filedocumented in this encounter Care Teams Special Class Welder Relationship Specialty Start Date End Date Regino Coleman MD [address] [place] PCP - General 10/21/20 documented as of this encounter
--- OUTSIDE RECORDS SUMMARY | 2025-02-27 11:41 | XMS_ITS ---
Author Organization [facility] Address [address] [place] [address] Care Team Providers Care Shirt Trimmer Name Role Phone Lennie, Kartik Primary Care Provider Aye Bliss Unavailable [phone] REASON FOR VISIT BUY BIOFREEZE Roll on Encounters Encounter Location Date Provider Diagnosis [address] [address] 02/12/2025 Aye Bliss Plan Of Treatment Next Appt Details Provider Name:Aey Miranda Izaiah , 05/24/2025 10:00:00 AM, [address] [place], [address], Progress Notes * Alexander HAHNeDOB: [birth year] (69 yo F)Acc No.[id number]:02/12/2025 Patient:?Rebekah HAHN :1955???Age:69 Y???Sex:Female Address:[address] [place] [address], [address] * true * Date:? Generated for Printi ng/Faxing/eTransmitting on:?02/27/2025 11:41 AM EDT
--- OUTSIDE RECORDS SUMMARY | 2025-02-27 11:41 | XMS_ITS | Patient Health Record ---
Author Organization [facility] Address [address] [place] [address] Care Team Providers Care Bow Making Machine Operator Name Role Phone DESHAUN OROURKE Primary Care Provider Amilcar Santiago Unavailable [phone] Allergies No Known Allergies Results Component Value Reference Range Notes Calprotectin, Fecal Reviewed date:07/21/2024 12:26:40 PM Interpretation: Performing Lab:[facility], [address] [place] [address] Notes/Report: Calprotectin, Fecal 10 Reference Range: <50 [...] borderline values. THIS TEST WAS PERFORMED AT: [employer]/[facility] [address] [place] [address] RAFFY WITT MD,PHD,CHITRA GI PANEL Reviewed date:07/08/2024 08:13:38 PM Interpretation: Performing Lab:[facility], [address] [place] [address] Notes/Report: Campylobacter Not Detected Not Detect. Plesiomonas [...] is performed by Multiplexed PCR, utilizing the [employer] Array. Complete Blood Count Auto Di ff Reviewed date:07/06/2024 12:32:00 PM Interpretation: Performing Lab:[facility], [address] [place] [address], [place] [address] Notes/Report: White Blood Count 7.2 4.8-10.8 X10*3/uL [...] te Reviewed date:07/06/2024 04:52:01 PM Interpretation: Performing Lab:[address] [address] Notes/Report: Erythrocyte Sedimentation Rate 8 0-20 MM/HR Patients with polycythemia and many hemoglobin abnormalities may have depressed sed rates whereas patients with anemia may have elevated sed rates. C Reactive Protein Reviewed date:07/06/2024 04:51:54 PM Interpretation: Performing Lab:[address] [address] Notes/Report: C Reactive Protein < 0.10 < or = 0.50 mg/dL Leukocytes Stool Qualitative Reviewed date:07/08/2024 08:12:59 PM Interpretation: Performing Lab:[address] [address] Notes/Report: Leukocytes Stool Qualitative NEGATIVE NEGATIVE CDiff Gene PCR Reviewed date:07/08/2024 08:12:52 PM Interpretation: Performing Lab:[facility], [address] [place] [address] Notes/Report: CDiff Gene PCR NEGATIVE Negative If C. difficile strongly suspected despite one negative test, a second test may be sent vs. empiric treatment for C. difficile infection. Complete Blood Count Auto Di ff Reviewed date:08/01/2024 12:13:53 PM Interpretation: Performing Lab:[facility], [address] [place] [address] Notes/Report: White Blood Count 7.1 4.8-10.8 X10*3/uL [...] Problem Status W/U Status Risk Notes Problem 334155246 Encounter for screening for malignant neoplasm of colon (Z12.11) Active confirmed Problem Diarrhea (26634942) Diarrhea (R19.7) Active confirmed Problem Screening for malignant neoplasm of rectum (410188273) Encounter for screening for malignant neoplasm of rectum (Z12.12) Active confirmed Problem 28002378 Blood in stool (K92.1) Active confirmed Problem 634800635 Gastroesophageal reflux disease without esophagitis (K21.9) Active confirmed Problem 799647085 Gastroesophageal reflux disease, esophagitis presence not specified (K21.9) Active confirmed Problem Pancreatic cyst (67080455) 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) Active confirmed Problem 63052231 Constipation, unspecified constipation type (K59.00) Active confirmed Problem 539970431 Abdominal pain, left lower quadrant (R10.32) Active confirmed Problem Irritable bowel syndrome characterized by constipation (387576168) Irritable bowel syndrome with constipation (K58.1) Active confirmed Problem Thrombocytosis (disorder) (3619788) Thrombocytosis, unspecified (D75.839) Active confirmed Vital Signs Blood pressure diastolic 00 mm Hg 09/28/2024 Height 64 in 09/28/2024 Blood pressure systolic 00 mm Hg 09/28/2024 Weight 136 lbs 09/28/2024 BMI 23.34 kg/m2 09/28/2024 Encounters Encounter Location Date Provider Diagnosis [facility] [address] [place] [address] 09/28/2024 Amilcar Sosa Gastroesophageal ref lux disease, esophagitis presence not specified K21.9 ; Irritable bowel syndrome with constipation K58.1 ; Encounter for screening for malignant neoplasm of colon Z12.11 ; Constipation, unspecified constipation type K59.00 and Pancreatic cyst K86.2 [facility] [address] [place] [address] 06/28/2024 Amilcar Sosa [facility] [address] [place] [address] 07/05/2024 Amilcar Sosa Diarrhea R19.7 [facility] [address] [place] [address] 07/10/2024 Amilcar Sosa Diarrhea R19.7 and Thrombocytosis, unspecified D75.839 [facility] [address] [place] [address] 07/20/2024 Amilcar Sosa [facility] [address] [place] [address] 09/28/2024 Amilcar Sosa Assessments Encounter Date Diagnosis (ICD [...] questions I can be of assistance with. Coredll was comfortable with this plan. Thank you [...] (ICD-10 - K86.2) Need MRI report from [facility] from 06/2024 Overall, Cordell appears well. [...] COLONOSCOPY 05/25/2017 Next Appt Details Provider Name:Amilcar Ingrid Sosa , 04/03/2025 02:40:00 PM, [address] [place] [address], [place] [address], [place], [address], Provider Name:Amilcar Quintero Sheila , 09/27/2025 09:00:00 AM, [address] [place] [address], [place] [address], [place], [address], Insurance Providers Payer Name Payer Address Payer Phone Subscriber Number Group Number Insured Name Patient Relationship to Insured Coverage Start Date Coverage End Date MED[place]ARE OF [place] [address] [place] [address] [id number] CORDELL ORDAZ Self - patient is the insured [employer]) [address] [place] [id number] [phone] [id number] CORDELL ORDAZ Self - patient is the insured Medical (General) History Medical History History ICD Code Screening colonoscopy 05-24-2009--negativ e EGD 01-05-2002 and in 11/2016--small HH, n o esophagitis, no Hernandes's Asthma--presently asymptomatic 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 Dillard Mitral valve prolapse Lyme's disease/Fibromyalgia--Amitryptile ne and Gabapentin Migraines-on Propranolol Hyperlipidemia Arthritis in left foot--Meloxicam/Cortis one injections Denies VT,DM,CVA,renal disease Renal cancer with surgery in 06/2018 [...] polyps Left kidney removed for cancer at [facility] by Dr. Corrales 06/2018 Partial hysterectomy and linnea dder suspension with complications of the right ureteral injury that needed stenting, then repeat laparoscopy for internal bleeding 11/18/2022 Incisional hernia repair x 2 in 2020 and 07/2023
--- OUTSIDE RECORDS SUMMARY | 2025-02-27 11:41 | XMS_ITS ---
Author Organization [facility] Address [address] [place] [address] Care Team Providers Care Weaver Tire Cord Name Role Phone DESHAUN OROURKE Primary Care Provider Amilcar Santiago [phone] Encounters Encounter Location Date Provider Diagnosis [facility] [address] [place] [address] 07/20/2024 Amilcar Sosa Plan Of Treatment Next Appt Details Provider Name:Amilcar Sosa , 04/03/2025 02:40:00 PM, [address] [place] [address], [address], [place], [address], Provider Name:Amilcar Sosa , 09/27/2025 09:00:00 AM, [address] [place] [address], [address], [place], [address], Progress Notes * CORDELL COVARRUBIAS EDOB:[birth year] (68 yo F)Acc No.[id number]:07/20/2024 Patient:?CORDELL COVARRUBIAS :1955???Age:68 Y???Sex:Female Address:[address] [place] [address] * true * Date:? Generated for Printi ng/Faxing/eTransmitting on:?02/27/2025 11:40 AM EDT
--- OUTSIDE RECORDS SUMMARY | 2025-02-27 11:41 | XMS_ITS ---
Author Organization [facility] Address [address] [place] [address] Care Team Providers Care Traffic Lieutenant Name Role Phone Jr Hogue Primary Care Provider Black, Aye Unavailable [phone] Allergies Allergen (clinical drug ingredient) Drug/Non Drug [...] Negative Encounters Encounter Location Date Provider Diagnosis [facility] [place] [address] [place] [address] 12/11/2024 Aye Bliss Plan Of Treatment Next Appt Details Provider Name:Aye Bliss , 05/24/2025 10:00:00 AM, [address] [place], [address], Progress Notes * Ashvin HAHNOB: [birth year] (69 yo F)Acc No.[id number]:12/11/2024 Progress Note Patient:Rebekah CLARK Provider:?Aye Bliss DPM :1955???Age:69 Y???Sex:Female D ate:12/11/2024 Address:[address] [place] [address] Pcp:Jr Hogue Subjective: * Chief Complaints: * ??? * [...] -sound affect hearing - Apt with ear Dr. 11/01/23, has hearing aids now. * Social [...] Bliss DPM Date:?2024 Generated for Chandler bentley/Brennon/Nirav on:?02/27/2025 11:41 AM EDT
--- OUTSIDE RECORDS SUMMARY | 2025-02-27 11:41 | XMS_ITS ---
Author Organization [facility] Address [address] [place] [address] Care Team Providers Care Senior Chemist Name Role Phone SHARAD, DESHAUN Primary Care Provider Amilcar Santiago [phone] Allergies No Known Allergies REASON FOR VISIT [...] 09/28/2024 Encounters Encounter Location Date Provider Diagnosis [facility] [address] [place] [address] 09/28/2024 Amilcar Sosa Gastroesophageal ref lux disease, [...] K86.2) Need MRI report from [facility] from 06/2024 Overall, Cordell appears well. [...] cyst Need MRI report from [facility] from 06/2024 Next Appt Details Follow Up: 1 Year, Reason: Provider Name:Amilcar Sosa , 04/03/2025 02:40:00 PM, [address] [place] [address], [address], [place], [address], Provider Name:Amilcar Sosa , 09/27/2025 09:00:00 AM, [address], [address], [place], [address], Progress Notes * CORDELL COVARRUBIAS EDOB:[birth year] (68 yo F)Acc No.[id number]:09/28/2024 Progress Notes Patient:?CORDELL COVARRUBIAS Provider:?Amilcar Sosa MD :1955???Age:68 Y???Sex:Female D ate:09/28/2024 Address: [place] , [place] Pcp:Regino Coleman MD Subjective: * Chief Complaints: [...] abdomen in June with her oncologist from [facility]. They advised her that the small pancreatic [...] Notes: Need MRI report from [facility] from 06/2024?? * Procedure Codes:?3017F COLOR ECTAL CA SCREEN DOC [id number] TOBACCO [id number] BP SCR NOT PRFRM REC REASON NOS [...] Sosa MD Date:? 024 Generated for Chandler bentley/Brennon/Bandarsmitting on:?02/27/2025 11:41 AM EDT History and Physical Notes * [...] abdomen in June with her oncologist from [facility]. They advised her that the small pancreatic [...]
--- OUTSIDE RECORDS SUMMARY | 2025-02-27 11:42 | XMS_ITS ---
[facility] Address [address] [place] [address] Care Team Providers Care [employer] [facility] Labor Name Role Phone Jr Hogue Primary Care Provider Black, Aye Unavailable [phone] Allergies Allergen (clinical drug ingredient) Drug/Non Drug Allergy documented on EMR Reaction Allergy Type Onset Date Status fentanyl Fentanyl Unknown Drug Allergy Active Results Component Value Reference Range Notes X ray : Foot, left 3V Reviewed date:02/12/2025 05:07:58 PM Interpretation:See Examination above Performing Lab: Notes/Report: See Examination above X ray : Foot, right 3V Reviewed date:02/12/2025 05:08:08 PM Interpretation:See Examination above Performing Lab: Notes/Report: See Examination above REASON FOR VISIT Foot pain, Painful Toe(s) Medications Medication SIG (Take, Route, Frequency, Duration) Notes Start Date End Date Status Fluoxetine Not-Takin g Lyrica 100 MG 1 capsule Orally Twice a day Not-Taking Meloxicam 15 MG 1 tablet Orally Once a day for 30 Not-Taking Tamoxifen Citrate No t-Taking Amitriptyline HCl No t-Taking Ammonium Lactate 12 % 1 application Externally Twice a day for 30 days Not-Taking Letrozole 2.5 MG Orally Not -Taking Naproxen 500 MG 1 tablet as needed Orally every 12 hrs Not-Taking Topiramate once a day Not-Taki ng Gabapentin Not-Takin g traMADol HCl 2x a day prn Acti ve Flonase 50 MCG/ACT 1 spray in each nostril Nasally Once a day for 30 day(s) Active Inderal XL Active Centrum Active Simvastatin 20 MG 1 tablet in the evening Orally Once a day for 30 day(s) Not-Taking Atorvastatin Calcium 20 MG 1 tablet Orally Once a day Active Alendronate Sodium 70 MG 1 tablet 30 minutes before the first food, beverage or medicine of the day with plain water Orally Active Medrol nj 4mg as directed orally as directed for 6 days 02/12/2025 Active Vitamin D3 Active Calcium Active Social History Tobacco Use: Social History Observation Description Date Details (start date - stop date) Never Smoker NA - NA Tobacco use other than smoking: Question Answer Notes Are you an other tobacco user? No Tobacco Control (Standard) Question Answer Notes Tobacco use: Nonsmoker Additional Findings: Tobacco non-user Current no nsmoker Problems Problem Type SNOMED Code ICD Code Onset Dates Problem Status W/U Status Risk Notes Problem Localized, primary osteoarthritis of the ankle and/or foot (346443618) Primary osteoarthriti s, left ankle and foot (M19.072) Active confirmed Problem Osteoarthritis of toe joint (921514225) Arthritis of joint of lesser toe, right (M19.071) Active confirmed Vital Signs Blood pressure systolic 120 mm Hg 02/13/20 25 Blood pressure diastolic 74 mm Hg 025 Height 5ft3in in 02/12/2025 Weight 140 lbs 02/12/2025 BMI 24.8 kg/m2 02/12/2025 Encounters Encounter Location Date Provider Diagnosis [facility] [address] [address] 02/12/2025 Aye Black Primary osteoarthrit is, left ankle and foot M19.072 ; Joint pain M25.50 ; Neuralgia and neuritis, unspecified M79.2 ; Hypertrophy of bone, 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 ; Pain in left foot M79.672 ; Pain in right toe(s) M79.674 ; Arthritis of joint of lesser toe, right M19.071 ; Subluxation of metatarsophalangeal joint of toe, initial encounter S93.149A and Other hammer toe(s) (acquired), right foot M20.41 Assessments Encounter Date Diagnosis (ICD Code) Assessment Notes Treatment Notes Treatment Clinical Notes Section Notes 02/12/2025 Primary osteoarthrit is, left ankle and foot (ICD-10 - M19.072) 02/12/2025 Joint pain (ICD-10 - M25.50) 02/12/2025 Neuralgia and neurit is, unspecified (ICD-10 - M79.2) 02/12/2025 Hypertrophy of bone, left ankle and foot (ICD-10 - M89.372) 02/12/2025 Pain in left foot (ICD-10 - M79.672) 02/12/2025 Pain in right toe(s) (ICD-10 - M79.674) 02/12/2025 Arthritis of joint o f lesser toe, right (ICD-10 - M19.071) 02/12/2025 Subluxation of metatarsophalangeal joint of toe, initial encounter (ICD-10 - S93.149A) 02/12/2025 Other hammer toe(s) (acquired), right foot (ICD-10 - M20.41) Plan Of Treatment Medication Medication Name Sig Start Date Stop Date Notes Medrol nj 4mg as directed orally as directed for 6 days 0 02/12/2025 Next Appt Details Follow Up: 4 Months, Reason: Provider Name:Aye Bliss , 05/24/2025 10:00:00 AM, [address] [place] [address], [id number], Progress Notes * Alexander HAHNeDOB: [birth year] (69 yo F)Acc No.[id number]:02/12/2025 Progress Note Patient:?Rebekah HAHN Provider:?Aye Bliss DPM :1955???Age:69 Y???Sex:Female D ate:02/12/2025 Address:[address] [place] [id number] Pcp:Jr Hogue Subjective: * Chief Complaints: * ???Foot painPainful Toe(s) * HPI: ???Foot Pain:?Nature:?aching, tenderness.?Location:?Top, Forefoot, Midfoot, LEFT and most recently inside midfoot left.?Duration:?several years.?Onset:?gradual.?Course:?, recurrent, worse.?Aggravated:?standing walking any pressure.?Treatments:?innersoles,and biofreeze ,injection therapy,Vionic. ,.?Severity/Quality:?moderate.?Misc:?Pt States Last PCP Visit -01/24/2025.?Toe pain:?Nature:?tenderness, aching, swelling.?Location:?Right foot.?Duration:?, several weeks.?Course:?worse.?Aggravated by:?any pressure, shoes.?Treatments:?rest/alter normal daily activity, change in shoes.? * ROS:?General/Constitutional:?Nausea?denies.?Vomiting?denies.?Hunger Thirst?denies.?Loss appetite?denies, denies.?Chills?denies, denies.?Fatigue?denies.?Fever?denies, denies.?Night [...] 06/16/18Incisional Hernia repair-daystay 11/29/2019hysterectomy, bladder 11/18/22Hernia Surgery 08/03/23surgery for bladder prolapse 12/29/24 * Hospitalization/Major Diagno stic Procedure:?[facility] [place] day bad reaction to fentanyl when colonoscopy was done 08/2017 * Family History:?Mother: praveen wagner?Father: , diagnosed with Other malignant neoplasm of unspecified site.?Paternal aunt: cancer.? * Social History:?Tobacco Use:?Tobacco use other than smoking?Are you an other tobacco user??No ?Tobacco Control (Standard)?Tobacco use:?Nonsmoker ?Additional Findings: Tobacco non-user?Current nonsmoker ???Miscellaneous:?Caffeine: yes, 1 cups per day. ?Children: yes, 2. ?Exercise: yes, occasional, , walking, water aerobics. ?Marital status: . 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 * Medications:?TakingAtorvasta tin Calcium 20 MG Tablet 1 tablet Orally Once a day Alendronate Sodium 70 MG Tablet 1 tablet 30 minutes before the first food, beverage or medicine of the day with plain water Orally Vitamin D3 Calcium Centrum Flonase 50 MCG/ACT Suspension 1 spray in each nostril Nasally Once a day Inderal XL traMADol HCl 2x a day prn Taking Atorvastatin Calcium 20 MG Tablet 1 tablet Orally Once a day Taking Alendronate Sodium 70 MG Tablet 1 tablet 30 minutes before the first food, beverage or medicine of the day with plain water Orally Taking Vitamin D3 Taking Calcium Taking Centrum Taking Flonase 50 MCG/ACT Suspension 1 spray in each nostril Nasally Once a day Taking Inderal XL Taking traMADol HCl 2x a day prn Not-Taking/PRNSimvastatin 20 MG Tablet 1 tablet in the evening Orally Once a day Ammonium Lactate 12 % Cream 1 application Externally Twice a day Topiramate , Notes to Pharmacist: once a dayGabapentin Letrozole 2.5 MG Tablet Orally Naproxen 500 MG Tablet 1 tablet as needed Orally every 12 hrs Amitriptyline HCl Meloxicam 15 MG Tablet 1 tablet Orally Once a day Tamoxifen Citrate Fluoxetine Lyrica 100 MG Capsule 1 capsule Orally Twice a day Medication List reviewed and reconciled with the patientNot-Taking/PRN Simvastatin 20 MG Tablet 1 tablet in the evening Orally Once a day Not-Taking/PRN Ammonium Lactate 12 % Cream 1 application Externally Twice a day Not-Taking/PRN Topiramate , Notes to Pharmacist: once a dayNot-Taking/PRN Gabapentin Not-Taking/PRN Letrozole 2.5 MG Tablet Orally Not-Taking/PRN Naproxen 500 MG Tablet 1 tablet as needed Orally every 12 hrs Not-Taking/PRN Amitriptyline HCl Not- Taking/PRN Meloxicam 15 MG Tablet 1 tablet Orally Once a day Not-Taking/PRN Tamoxifen Citrate Not-Taking/PRN Fluoxetine Not-Taking/PRN Lyrica 100 MG Capsule 1 capsule Orally Twice a day Medication List reviewed and reconciled with the patient * Allergies:?Fentanylyes[Aller gies Verified] Objective: * Vitals:?Ht: 5ft3in, Wt:140, BMI:24.8, Shoe size: 6.5-7, BP:120/74mm Hg, Ht-cm: 160.02 cm, Wt-k.5 kg. * Examination: ???General Examination: ?GENERAL APPEARANCE:?Reveals a pleasant, alert, well nourished, well- developed, well hydrated individual, who demonstrates proper attention to hygiene/body habitus, and is in no acute distress, Pt serves as own historian for office visit today.?ORIENTED:?person, place, and time.?Neurological: ?SENSORY:?pt relates cont.?hyperesthesia, increased shooting sensation, midfoot b/l, Neurological exam demonstrates, reduced sharp/dull pin prick discrimination , reduced vibration sensation, 5.07 monofilament test performed at plantar aspects of 5 varied sites per foot shows sensation, reduced , at Forefoot ?, burning, pins and needles sensation.?Orthopedic: ?MUSCLE STRENGTH:?5/5 all groups in a symmetrical fashion, B/L.?FOOT MORPHOLOGY:?exostosis, midfoot,?Pain on palpation Left edema noted and no erythema POP , , Prominent, painful 1st Met-Cuneiform joint WITH inflammation and POP left.?DIGITAL DEFORMITIES:?Digital contracture, PIPJ, 2-5 B/L, incompl-reducible with WB, or to push-up test, no over, nor underlapping, Reveals pain/swelling/enlargement of T6 and T7, Pain on ROM PIPJ T6 and T7.?FOOTWEAR EVALUATION:?good condition.?Vascular: ?DP PULSES (B):?2/4, B/L.?PT PULSES (B):?2/4, B/L.?CAPILLARY FILL TIME:?immediate, all digits, B/L.?TROPHIC CONDITION-TEXTURE/ELASTICITY/TURGOR/HAIR GROWTH (B):?normal, B/L.?TEMPERTURE GRADIENT (C):?normal, warm to cool, proximal to distal, B/L, B/L.?PIGMENTATION:?normal, B/L.?Dermatologic: ?SKIN FINDINGS:?Skin exam reveals normal color, texture, elasticity, and turgor. There are no masses, nor excrescences. The interspaces are clear, B/L.?X-Rays - IMAGING REPORT: ?Clinical Indication(s):? Evaluate Biomechanical Deformity.?Views:?3 views of Foot, AP, LO, LAT, , RIGHTTaken by traineddiatric Yarn Wrapper (SF?).?Findings:?mild generalized decrease in bone density, eburnation dorsal 1st MT/Cun. jt , dorsal degenerative changes of the tarsal joints.?Digits:? show asymmetrical joint space narrowing at the PIPJ consistent with clinical finding of hammertoe deformity,show enlarged/hypertrophied phalangeal head(s) consistent for clinical finding of hammertoe deformity.?Fracture:? Negative fractures identified.? Assessment: * Assessment: 1.?Primary osteoarthritis, l eft ankle and foot - M19.072 (Primary)???Specify :Chronic problem, Worse (4) Rx Management (4)???2.?Joint pain - M25.50???3.?Neuralgia and neuritis, unspecified - M79.2???4.?Hypertrophy of bone, left ankle and foot - M89.372???5.?Pain in left foot - M79.672???6.?Pain in right toe(s) - M79.674???7.?Arthritis of joint of lesser toe, right - M19.071???8.?Subluxation of metatarsophalangeal joint of toe, initial encounter - S93.149A???9.?Other hammer toe(s) (acquired), right foot - M20.41???Specify :Chronic problem, Worse (4)??? Plan: * Treatment: 2.?Pain in left foot?Imaging: X ray : Foot, left 3V (Performed Date - 02/12/2025)?See Examination above 3.?Pain in right toe(s)?Imaging: X ray : Foot, right 3V (Performed Date - 02/12/2025)?See Examination above * Procedure Codes:?60534 X-RAY EXAM OF LEFT FOOT 3V, Modifiers: 26 , OC75025 X-RAY EXAM OF RIGHT FOOT 3V, Modifiers: 26 , RT * Preventive Medicine:? ??Counseling:?Discussion:?-14: Office or other outpatient visit for the evaluation and management of an established patient, which required a medically appropriate history and/or examination and MODERATE level of DECISION MAKING for: 1 OR MORE CHRONIC PROBLEM(S) THATS WORSENING, 2 STABLE CHRONIC PROBLEMS, A NEWLY DIAGNOSED PROBLEM WITH UNCERTAIN PROGNOSIS, AN ACUTE COMPLICATED INJURY WITH MULTIPLE TREATMENT OPTIONS, OR AN ACUTE PROBLEM WITH ACCOMPANYING SYSTEMIC SYMPTOMS, THAT POSE(S) A MODERATE RISK OF MORBIDITY. THIS CONDITION MAY ALSO INCLUDE RX DRUG MANAGEMENT, OR A DECISON FOR MINOR SURGERY. The visit on the day of the encounter encompassed interpreting the data and educating the patient as to the nature of their condition, treatment options available according to their individual PMH, meds, allergies, and overall health/living conditions, as well as any potential risks or complications that may occur from a failure to adhere to, and participate in, the recommended course of therapy. The discussion included a complete verbal, and/or written explanation of the examination results, any x-rays taken, the proposed diagnosis, and outline of the treatment plan. A schedule for future care needs was also explained. The patient verbalized an understanding of the instructions at this time and agreed to be an active participant in their treatment. If the patient should think of any questions or concerns after the visit, I have encouraged the patient to call the office.?Arthritis:?The patient was counseled on the various etiologies for their Arthritis including genetic, history of injury or trauma, abnormal foot biomechanics leading to excessive joint wear, and use/overuse. We discussed the various treatment options from no treatment, to topical analgesics such as Biofreeze gel, Aspercream, Voltaren gel, Lidoderm patches, CBD oils, THC creams, and Custom-compounded topical cream preparations to natural oral products such as Glucosamine Sulfate/Chondroitin/MSM/Collegen to analgesic Tylenol, to anti-inflammatory medications such as Ibuprofen/Naproxen, and the use of oral steroids if needed. Cardiac, Kidney, and GI issues were discussed RE: potential complications of oral anti-inflammatories. We discussed several other treatment options consisting of accom shoes, supportive innersoles, AFO bracing/support, cortisone injection therapy, and surgical resection of the arthritic joint(s) or fusion reconstruction if necessary. We discussed the advantages and disadvantages of conservative (vs) surgical treamtents including pain relief, improved function/activities of daily life, return to exercise to failure, expense, systemic complications, infection, [id number], prolongued postop course. Patient questions re: the various treatment options available, their successes and potential failures, and senior care effects were discussed and the answers were verbally confirmed understood, The Pt. was counseled on the x-rays,treatment options, and the importance of following all homecare instructions, Recommended oral steriod to help with all pain and swelling.?Digital Surgery:?Digital surgery was discussed with the patient, including the risks of surgery(below), vs not having surgery (persistent pain, deformity, risk for skin ulceration/infection, loss of toe), the potential surg complications, the anesthesia, and the usual post-op course. No guarentees were given. We discussed the potential procedure complications including, but not limited to: pain, swelling, bleeding, scarring, numbness, infection, delayed/non healing, floppy/unstable/shorthened toe, recurrence, failure of the procedure, overcorrection leading to plantarflexed/downward positioned toe, recurrence, need for further surgery, as well as the possibility for loss of the toe itself. We discussed the use of local anesthesia, and the usual post-op course for healing. No guarentees were given. The patient verbally indicated a full understanding of the above conversation, and any other of their questions were answered to their satisfaction. Alternatives to the procedure were also discussed, including conservative care. I also discussed the usual post-operative course and gave no guarantees regarding outcome.?Digital Treatment:?HT- I explained to the patient the possible etiologies of Hammertoes, including genetics/foot type/shoegear/activity level/exercise routine and the risks/benefits of all the different treatment options for their pain including: No treatment at all, Rest, Ice, New/supportive/wider/deeper Shoe gear, Digital Padding/Strapping/Taping/Bracing/Gel protective sleeves, Foot/Ankle AFO Bracing, Stretching exercises, Deep Tissue Massage, Arch support/shoe inserts with splay metatarsal padding, and Custom orthoses. I insisted that any digital devices be removed daily and not worn overnight for safety. The patient is to carefully examine the toes daily for any skin irritation while using any splinting or padding device. The advantages and disadvantages of each option were discussed and the patients questions re: shoe gear, padding, custom vs prefabricated inserts, activity level, and consistency in home treatment regimens for optimal success were answered to their verbally confirmed satisfaction, Recomm, rest, ice, proper shoegear, padding, orthotics, anti-inflammatories or tylenol as tolerated, topical analgesics, cortisone injections.? ??Screening/Special Tests:?Fall Risk?Screening:?No falls in the past year ?FALLS: Screening for Future Fall Risk?Have you had any falls with injury in the past year??No * Follow Up:?4 Months * Images: * Sign off status: Completed true * Provider:?Aye Bliss DPM Date:?2024 Generated for Chandler bentley/Brennon/Nirav on:?02/27/2025 11:41 AM EDT History and Physical Notes * HPI (History of Present Illness) Category Sub-Category Detail Notes Category Not es Toe pain Nature: tenderness, aching, swelling Location: Right foot Duration: , several weeks Course: worse Aggravated by: any pressure, shoes Treatments: rest/alter normal da isabel activity, change in shoes Foot Pain Nature: aching, tenderness Location: Top, Forefoot, Midfo ot, LEFT and most recently inside midfoot left Duration: several years Onset: gradual Course: , recurrent, worse Aggravated: standing walking any pressure Treatments: innersoles,and biofr eeze ,injection therapy,Vionic. , Severity/Quality: moderate Misc: Pt States Last PCP V isit -01/24/2025 Examination Category Sub-Category Detail Notes Category Not es Heel Pain INSPECTION REVEALS: Neurological SENSORY: pt relates cont. hyperesthesia, increased shooting sensation, midfoot b/l, Neurological exam demonstrates, reduced sharp/dull pin prick discrimination , reduced vibration sensation, 5.07 monofilament test performed at plantar aspects of 5 varied sites per foot shows sensation, reduced , at Forefoot , burning, pins and needles sensation Dermatologic SKIN FINDINGS: Skin exam reveal s normal color, texture, elasticity, and turgor. There are no masses, nor excrescences. The interspaces are clear, B/L Orthopedic FOOT MORPHOLOGY: exostosis, midf oot, Pain on palpation Left edema noted and no erythema POP , , Prominent, painful 1st Met-Cuneiform joint WITH inflammation and POP left FOOTWEAR EVALUATION: good condition DIGITAL DEFORMITIES: Digital contracture , PIPJ, 2-5 B/L, incompl-reducible with WB, or to push-up test, no over, nor underlapping, Reveals pain/swelling/enlargement of T6 and T7, Pain on ROM PIPJ T6 and T7 MUSCLE STRENGTH: 5/5 all groups in a symmetrical fashion, B/L General Examination GENERAL APPEARANCE: Reveals a pleasant, alert, well nourished, well-developed, well hydrated individual, who demonstrates proper attention to hygiene/body habitus, and is in no acute distress, Pt serves as own historian for office visit today ORIENTED: person, place, and t torrey Vascular DP PULSES (B): 2/4, B/L PT PULSES (B): 2/4, B/L CAPILLARY FILL TIME: immediate, all digi ts, B/L TEMPERTURE GRADIENT (C): normal, warm to cool, proximal to distal, B/L, B/L TROPHIC CONDITION-TEXTURE/ELASTICITY/TURGOR/HAIR GROWTH (B): normal, B/L PIGMENTATION: normal, B/L X-Rays - IMAGING REPORT Findings: mild gen eralized decrease in bone density, eburnation dorsal 1st MT/Cun. jt , dorsal degenerative changes of the tarsal joints Fracture: Negative fractures i dentified Digits: show asymmetrical manjula int space narrowing at the PIPJ consistent with clinical finding of hammertoe deformity,show enlarged/hypertrophied phalangeal head(s) consistent for clinical finding of hammertoe deformity Views: 3 views of Foot, AP, LO, LAT, , RIGHT Taken by trained Podiatric Yarn Wrapper (SF ) Clinical Indication(s): Evaluate Biomech anical Deformity Heel Pain INSPECTION:
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
--- OUTSIDE RECORDS SUMMARY | 2025-02-27 11:42 | XMS_ITS ---
Author Organization [facility] Address [address] [place] [address] Care Team Providers Care Professor Of Practice Name Role Phone SHARAD, DESHAUN Primary Care Provider Amilcar Santiago [phone] REASON FOR VISIT advise her of her gallstones Encounters Encounter Location Date Provider Diagnosis [facility] [address] [place] [address] 09/28/2024 Amilcar Sosa Plan Of Treatment Next Appt Details Provider Name:Amilcar Sosa , 04/03/2025 02:40:00 PM, [address] [place] [address], [address], [place], [address], Provider Name:Amilcar Sosa , 09/27/2025 09:00:00 AM, [address] [place] [address], [address], [place], [address], Progress Notes * CORDELL COVARRUBIAS EDOB:[birth year] (69 yo F)Acc No.[id number]:09/28/2024 Patient:?CORDELL COVARRUBIAS :1955???Age:68 Y???Sex:Female Address:[address] [place] [address] * true * Date:? Generated for Printi ng/Faxing/eTransmitting on:?02/27/2025 11:41 AM EDT
--- OUTSIDE RECORDS SUMMARY | 2025-02-27 11:42 | XMS_ITS | Clinical Summary ---
Author Organization [facility] Address [address] [facility] [place] [address] Care Team Providers Care Crm Marketing Analyst Name Role Phone Regino Coleman MD Primary Care Provider [phone] Allergies Active Allergy Reactions Criticality Noted Date [...] of the pathology by [facility], Department of Pathology suggests that it may [...] date. Immunizations Immunization Administration Dates Next Due PhotoRocket SARS-COV-2 12/14/2020 Cloud Theory SARS-COV-2 08/06/2021 Pneumococcal Conjugate 13-Valent 12/29/2019 Family [...] 50+ Ye ars (2 of 2 - PPSV23, PCV20, or PCV21) 02/23/2020 12/29/2019 Influenza Vaccine (Season Ended) 2025 Pneumococcal Vaccine: Peds ( 0 to 5 Years) and At-Risk Patients (6 to 49 Years) Discontinued 12/29/2019 Hepatitis B Vaccine Aged Out No longe r eligible based on patient's age to complete this topic Insurance Medicare [facility] Medicare [facility] [place] [id number] Care Teams Crm Marketing Analyst Relationship Specialty Start Date End Date Regino Coleman MD [address] [place] [address] [address] [place] PCP - General 10/21/20
== END 2025-02-27 12:20 | disposition home or self-care (01) ==
PROVIDERS: PCP Internal Medicine; Visit Provider Physician Assistant
DX: M54.41 Lumbago with sciatica, right side (principal)

== ENCOUNTER → 2025-02-27 10:28 | Outpatient (BNVA) | payer MEDICARE, OTHER, SELFPAY | PROVIDERS: PCP Internal Medicine; Visit Provider Physician Assistant | DX: M54.41 Lumbago with sciatica, right side (principal) | CPT/HCPCS: 99212 ==

== ENCOUNTER 2025-03-13 15:34 | Outpatient (AMB) | payer MEDICARE, OTHER, SELFPAY ==
--- NOTE | 2025-03-13 16:10 | A.OFFVIS_ITS ---
Intake Visit Reasons: INJ- L basal joint OA, Last Inj 09/13/24 Intake Note: 1-1.5 weeks ago lump, denies injury Allergies fentanyl [FENTANYL] Allergy (Severe, Verified 02/27/25 11:39) SEVERE VOMITING, severe headache, vomiting sulfamethoxazole [From BACTRIM] Allergy (Severe, Verified 02/27/25 11:39) CANNOT TAKE-ONLY HAS ONE KIDNEY trimethoprim [From BACTRIM] Allergy (Severe, Verified 02/27/25 11:39) CANNOT TAKE-ONLY HAS ONE KIDNEY azithromycin [AZITHROMYCIN] Allergy (Intermediate, Verified 02/27/25 11:39) DIARRHEA HPI HPI INJ- L basal joint OA, Last Inj 09/13/24: Details: Rebekah is a 68 year old woman who presents for a repeat steroid injection for her left hand Basal joint arthritis. She has a history of steroid injections, with good relief, and her last injection was on 09/13/24. She would like a repeat injection today. Her chief complaint today is of pain in the dorsal aspect of her hand. She denies any pain today but says it happens often with activities. She also complains of finger stiffness, and she says the crack often . She complains of pain at the base of her left thumb, worse with pinching & gripping activities Her pain overall has started to improve since she stopped gardening and began to use her hand less. She reports worsening clicking of her ring fingers, R>L. She denies any locking. She is scheduled to see Rheumatology at an outside clinic in June, to be assessed for possible RA. 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 History of kidney cancer Chronic kidney disease Migraines Osteoarthritis Fibromyalgia Hypercholesteremia Surgical History (Updated 03/13/25 @ 16:12 by JOY Hensley) History of bladder surgery History of colonoscopy (~08/12/17) History of hernia repair H/O hysterectomy for benign disease Hx of surgical procedure (~08/03/23) H/O vaginal hysterectomy History of incisional hernia repair (~11/29/19) History of nephrectomy, left (~06/2018) Status post biopsy of kidney (~04/2018) History of breast biopsy (~05/11/14) History of tonsillectomy and adenoidectomy S/P removal of left ovary (~1978) History of removal of cyst (~1972) History of ankle surgery (~2003) H/O kidney removal History of breast surgery Hx of tonsillectomy Family History Father Stomach cancer Prostate cancer High cholesterol Sister Stroke Mother High cholesterol CLL (chronic lymphocytic leukemia) Maternal Aunt Breast cancer Social History Household Members: Spouse Housing: House Alcohol intake: current Alcohol intake frequency: holidays/special occasions only Patient Tobacco Use Status: Never used Tobacco e-Cigarette/Vaping Use: Never Used Advance Directives Date on File: 07/25/20 service: No Current occupational status: 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 Sexual orientation: Straight/Heterosexual Gender identity: Female Cognitive needs: No Hearing needs: Yes (bilateral hearing aids) Vision needs: Yes (rx glasses) Female Reproductive History Menstrual Age of Menarche: 10 Physical Exam Const General: comfortable and no acute distress Orientation/consciousness: patient oriented x3 Resp Effort & Inspection: normal respiratory effort GI Palpation (GI): Soft to palpation and nontender Neuro General: patient oriented x3 Extrem Other: Evaluation of Left Upper Extremity: The patient is alert, oriented, and in no acute distress Neuro: Median, Ulnar, Radial nerves motor and sensory intact and sensation is normal to the tips of all digits Vascular: Cap refill brisk ROM: She can make a fist and extend all her digits Positive CMC grind Negative shoulder sign Most TTP over the basal joint No tenderness over the IP joint or MCP joint of the thumb. No tenderness over the A1 manoj No locking or catching No 1st dorsal compartment tenderness. She had a negative Elida test. Regarding the extensor tendons over the left 3rd MCP joint, she did have subluxation of the EDC tendon ulnarly as she brought her finger into a fist which corrected to centralized at full flexion Not painful or tender, and the patient says it is not very bothersome. No tenderness over the a1 manoj No locking or catching Small mass ~3-4mm diameter on the EDC tendon to the left index finger, at about the CMC joints. moves with the tendon, mildly tender, no pain with resisted finger extension Psych Appearance: grossly normal Affect: normal affect Attitude: cooperative Office Procedures AMB Fracture Care Details: No fracture, injection Fracture Billing Code: Fracture Billing Code Assessment & Plan Assessment & Plan (1) Arthritis of carpometacarpal (CMC) joint of left thumb: Code(s): M18.12 - Unilateral primary osteoarthritis of first carpometacarpal joint, left hand Category: Medical (2) Nontraumatic subluxation of extensor tendon at metacarpophalangeal joint of right hand: Code(s): M66.241 - Spontaneous rupture of extensor tendons, right hand Category: Medical (3) Nontraumatic subluxation of extensor tendon at metacarpophalangeal joint of left hand: Code(s): M66.242 - Spontaneous rupture of extensor tendons, left hand Category: Medical Plan Assessment and plan: 1. Left basal joint osteoarthritis, S/P injections Date of Injections: 03/13/25, 09/13/24, 02/22/24, 01/19/23, 07/29/22, 12/17/21, 09/02/21, and 04/30/21 with good results I educated her about this condition Injections appear to be working well overall for her, and she is interested in an injection again today. I discussed activity modification, they should limit or avoid any heavy or repetitive pinching or gripping activities Injection #1 : The risks and benefits of a steroid injection including but not limited to risk of damage to blood vessels, nerve, tendon, infection, skin bleaching, persistent or worsening pain, and failure to improve symptoms were discussed with the patient and they wish to proceed with the steroid injection. Once consent was obtained the skin over the dorsum of the left basal joint was sterilely prepped. The joint was then injected with a combination of 1 mL of (40 mg/ml} Depo-Medrol and 1% plain Lidocaine. The patient appears to have tolerated the procedure well and with no complications. She had good early relief before leaving clinic today. She knows that they may not have another steroid injection into this joint for least 4 months. 2. Ulnar subluxation of the extensor tendon to the left 3rd MCP joint/radial sagittal band insufficiency Not particularly symptomatic at this time. Being managed conservatively 3. Ulnar subluxation of the extensor tendon to the right 3rd MCP joint This also appears to have improved. Not painful or bothering her. Being managed conservatively 4. Left index finger EDC tendon nodule At about the CMC joint, moves with the tendon Mild tenderness, but no pain with resisted index finger extension We will manage this conservatively at this time. Scribed for Mary Boss MD by Solo Malin medical technologist clinical, on 03/13/24 at 4:15 PM, EST. Coding Level of Care Code Est Pt Level 4 (78675) Diagnoses Arthritis of carpometacarpal (CMC) joint of left thumb M18.12 Nontraumatic subluxation of extensor tendon at metacarpophalangeal joint of right hand M66.241 Nontraumatic subluxation of extensor tendon at metacarpophalangeal joint of left hand M66.242 CPT Codes Fracture Care - Fracture Billing Code: Fracture Billing Code ([id number])
--- OUTSIDE RECORDS SUMMARY | 2025-03-13 16:57 | XMS_ITS | Encounter Summary ---
Author Organization [facility] Address [address] [place] [address] Phone Care Team Providers Care Meteorology Instructor Name Role Phone Regino Coleman MD Primary Care Provider [phone] Encounter Details Date Type Department Care Team (Late st Contact Info) Description 11/25/2022 Telephone [facility] [address] [place] [address] Ying Medrano Social History Tobacco [...] called to relay that Dr. Reyes from [facility] had recently put a stent in [...] on filedocumented in this encounter Care Teams Meteorology Instructor Relationship Specialty Start Date End Date Regino Coleman MD [address] [place] PCP - General 10/21/20 documented as of this encounter
== END 2025-03-13 16:28 | disposition home or self-care (01) ==
LOC: HO.HOS 15:35
PROVIDERS: PCP Internal Medicine; Visit Provider Orthopaedic Surgery
DX: M18.12 Unilateral primary osteoarthritis of first carpometacarpal joint, left hand (principal); M66.241 Spontaneous rupture of extensor tendons, right hand; M66.242 Spontaneous rupture of extensor tendons, left hand
CPT/HCPCS: 20600; 99214

== ENCOUNTER → 2025-03-13 15:34 | Outpatient (BNVA) | payer MEDICARE, OTHER, SELFPAY | PROVIDERS: PCP Internal Medicine; Visit Provider Orthopaedic Surgery | DX: M18.12 Unilateral primary osteoarthritis of first carpometacarpal joint, left hand (principal); M66.241 Spontaneous rupture of extensor tendons, right hand; M66.242 Spontaneous rupture of extensor tendons, left hand | CPT/HCPCS: 20600; 99212; J2003 ==

== ENCOUNTER 2025-05-15 13:32 | Outpatient (REF) | payer MEDICARE, OTHER, SELFPAY ==
[2025-05-15 16:51] LABS: Resp Syncy Virus RNA Qual PCR NEGATIVE (Negative); SARS COV2 PCR INHOUSE NEGATIVE (Negative)
== END 2025-05-15 13:33 | disposition home or self-care (01) ==
LOC: HO.LNP 13:32
PROVIDERS: PCP Internal Medicine; Visit Provider Physician Assistant Medical
DX: J32.0 Chronic maxillary sinusitis (principal); R09.89 Other specified symptoms and signs involving the circulatory and respiratory systems; R51.9 Headache, unspecified
CPT/HCPCS: 87637; 99212

== ENCOUNTER 2025-05-15 13:32 | Outpatient (AMB) | payer MEDICARE, OTHER, SELFPAY ==
[2025-05-15 13:57] VITALS: BP 120/68; PULSE 83; TEMP 36.6; O2SAT 97; BMI 24.8
--- NOTE | 2025-05-15 13:57 | AM.OFFWIN_ITS ---
Intake Vital Signs 05/15/25 13:57 Height 5 ft 3 in Weight 140 lb BMI 24.8 BP 120/68 Blood Pressure Location Lt brachial Position Sitting Pulse 83 Pulse Source Pulse Oximeter Temp 97.9 F Temp Source Oral Pulse Oximetry (%) 97 Oxygen Delivery Method Room Air Intake Visit Reasons: EP Sinus congestion Intake Note: presents with sinus pressure. reports h/o sinus infections Patient Tobacco Use Status: Never used Tobacco Allergies fentanyl (FENTANYL) Allergy (Severe, Verified 05/15/25 14:00) SEVERE VOMITING, severe headache, vomiting sulfamethoxazole (From BACTRIM) Allergy (Severe, Verified 05/15/25 14:00) CANNOT TAKE-ONLY HAS ONE KIDNEY trimethoprim (From BACTRIM) Allergy (Severe, Verified 05/15/25 14:00) CANNOT TAKE-ONLY HAS ONE KIDNEY azithromycin (AZITHROMYCIN) Allergy (Intermediate, Verified 05/15/25 14:00) DIARRHEA Do you need a note to return to daycare/school/sports/work: No HPI HPI Comments History of Present Illness Details History of Present Illness - The patient is a 69-year-old female pr esenting with sinus pain and pressure. - She reports frequent sinus infections, with increased sinus pressure and headache starting yesterday. - Sinus pressure is noted above the eye, with headaches sometimes radiating to the face. - No significant nasal discharge, fever, or cough is reported. - History of antibiotic and prednisone u se for sinus infections, with Z-Espinoza being effective. - Daily use of Yvette and Flonase for a llergic rhinitis. - She denies fever, chills, CP, SOB, abd pain, n/v/d, or dizziness. Physical Exam General: Cooperative, healthy appearing, comfortable, no acute distress and well developed Head: Normal to inspection Ears: Hearing grossly normal bilaterally. No tragus or mastoid tenderness noted. Auditory canals clear bilaterally. TM's normal, not bulging. No fluid noted. Nose: Normal external nose present. Moist mucosa. Turbinates normal bilaterally, not boggy. Face and sinus: Tenderness to palpation of the frontal and maxillary sinuses bilaterally. Neck: Normal visual inspection and Yes full ROM. No lymphadenopathy noted. Respiratory: Normal respiratory effort and able to speak in complete sentences. Clear to auscultation bilaterally Cardiovascular: Regular rate and rhythm. Normal S1 and S2 GI: Normal to inspection. Soft to palpation and nontender, nondistended. No guarding noted. 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 History of kidney cancer Chronic kidney disease Migraines Osteoarthritis Fibromyalgia Hypercholesteremia Surgical History (Updated 03/13/25 @ 16:12 by Liz Ibarra [facility]) History of bladder surgery History of colonoscopy (~08/12/17) History of hernia repair H/O hysterectomy for benign disease Hx of surgical procedure (~08/03/23) H/O vaginal hysterectomy History of incisional hernia repair (~11/29/19) History of nephrectomy, left (~06/2018) Status post biopsy of kidney (~04/2018) History of breast biopsy (~05/11/14) History of tonsillectomy and adenoidectomy S/P removal of left ovary (~1978) History of removal of cyst (~1972) History of ankle surgery (~2003) H/O kidney removal History of breast surgery Hx of tonsillectomy Family History Father Stomach cancer Prostate cancer High cholesterol Sister Stroke Mother High cholesterol CLL (chronic lymphocytic leukemia) Maternal Aunt Breast cancer Social History Household Members: Spouse Housing: House Alcohol intake: current Alcohol intake frequency: holidays/special occasions only Patient Tobacco Use Status: Never used Tobacco e-Cigarette/Vaping Use: Never Used Advance Directives Date on File: 07/25/20 service: No Current occupational status: 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 Sexual orientation: Straight/Heterosexual Gender identity: Female Cognitive needs: No Hearing needs: Yes (bilateral hearing aids) Vision needs: Yes (rx glasses) Female Reproductive History Menstrual Age of Menarche: 10 Review of Systems Const All systems reviewed & are unremarkable except as noted in HPI and below Physical Exam Vital Signs: Last Vital Signs Temp 97.9 F 05/15/25 13:57 Pulse 83 05/15/25 13:57 BP 120/68 08/05/25 13:57 Pulse Ox 97 05/15/25 13:57 Oxygen Delivery Method Room Air 05/15/25 13:57 BMI result Body Mass Index 24.8 Assessment & Plan Assessment & Plan (1) Chronic sinusitis: Code(s): J32.9 - Chronic sinusitis, unspecified Qualifiers: Sinusitis location: maxillary Qualified Code(s): J32.0 - Chronic maxillary sinusitis Plan Most likely sinusitis vs allergic rhinitis vs URI vs covid vs flu vs RSV Plan- - will order a resp panel - prednisone burst for 5 days - z-espinoza as directed - tylenol or motrin as needed - follow up with PCP Orders: Orders SARS-CoV2/FLU/RSV Today R09.89 - Other specified symptoms and signs involving the circulatory and respiratory systems Medications: New prednisone 40 mg (2 x 20 mg) PO DAILY 10 tabs 0RF azithromycin For 250 mg dose pack: take 500 mg today (day 1), then 250 mg for 4 days (days 2-5) PO 6 tabs 0RF Coding Level of Care Code Est Pt Level 3 (68499) Diagnoses Chronic maxillary sinusitis J32.0 Sinusitis location: maxillary
--- OUTSIDE RECORDS SUMMARY | 2025-05-15 14:13 | XMS_ITS | Encounter Summary ---
Author Organization [facility] Address [address] [place] [address] Phone Care Team Providers Care Carry All Driver Name Role Phone Regino Coleman MD Primary Care Provider [phone] Encounter Details Date Type Department Care Team (Late st Contact Info) Description 11/25/2022 Telephone [facility] [address] [place] [address] Ying Medrano Social History Tobacco [...] called to relay that Dr. Reyes from [facility] had recently put a stent in [...] on filedocumented in this encounter Care Teams Carry All Driver Relationship Specialty Start Date End Date Regino Coleman MD [address] [place] PCP - General 10/21/20 documented as of this encounter
--- OUTSIDE RECORDS SUMMARY | 2025-05-15 14:13 | XMS_ITS | Patient Health Record ---
Author Organization [facility] Address [address] [place] [address] Care Team Providers Care Negative Turner Name Role Phone DESHAUN OROURKE Primary Care Provider Amilcar Santiago Unavailable [phone] Allergies No Known Allergies Results Component Value Reference Range Notes Calprotectin, Fecal Reviewed date:07/21/2024 12:26:40 PM Interpretation: Performing Lab:[facility], [address] [place] [phone] Notes/Report: Calprotectin, Fecal 10 Reference Range: <50 [...] borderline values. THIS TEST WAS PERFORMED AT: [employer] [address] [place] [address] RAFFY WITT MD,PHD,CHITRA GI PANEL Reviewed date:07/08/2024 08:13:38 PM Interpretation: Performing Lab:[facility], [address] [place] [phone] Notes/Report: Campylobacter Not Detected Not Detect. Plesiomonas [...] is performed by Multiplexed PCR, utilizing the CoupFlip Array. Complete Blood Count Auto Di ff Reviewed date:07/06/2024 12:32:00 PM Interpretation: Performing Lab:[facility], [address] [place] [address], [place] [address] Notes/Report: White Blood Count 7.2 4.8-10.8 X10*3/uL [...] te Reviewed date:07/06/2024 04:52:01 PM Interpretation: Performing Lab:[address] [phone] Notes/Report: Erythrocyte Sedimentation Rate 8 0-20 MM/HR Patients with polycythemia and many hemoglobin abnormalities may have depressed sed rates whereas patients with anemia may have elevated sed rates. C Reactive Protein Reviewed date:07/06/2024 04:51:54 PM Interpretation: Performing Lab:[address] [phone] Notes/Report: C Reactive Protein < 0.10 < or = 0.50 mg/dL Leukocytes Stool Qualitative Reviewed date:07/08/2024 08:12:59 PM Interpretation: Performing Lab:[address] [address] Notes/Report: Leukocytes Stool Qualitative NEGATIVE NEGATIVE CDiff Gene PCR Reviewed date:07/08/2024 08:12:52 PM Interpretation: Performing Lab:[facility], [address] [place] [phone] Notes/Report: CDiff Gene PCR NEGATIVE Negative If C. difficile strongly suspected despite one negative test, a second test may be sent vs. empiric treatment for C. difficile infection. Complete Blood Count Auto Di ff Reviewed date:08/01/2024 12:13:53 PM Interpretation: Performing Lab:[facility], [address] [place] [phone] Notes/Report: White Blood Count 7.1 4.8-10.8 X10*3/uL [...] Status Risk Notes Problem Irritable bowel syndrome (84007165) Irritable bowel syndrome (K58.9) Active confirmed Problem 678917650 Encounter for screening for malignant neoplasm of colon (Z12.11) Active confirmed Problem Diarrhea (49284352) Diarrhea (R19.7) Active con firmed Problem Change in bowel habit (11984176) Change in bowel habits (R19.4) Active confirmed Problem Screening for malignant neoplasm of rectum (305625138) Encounter for screening for malignant neoplasm of rectum (Z12.12) Active confirmed Problem 74609078 Blood in stool (K92.1) Active confirmed Problem 921326973 Gastroesophageal reflux disease without esophagitis (K21.9) Active confirmed Problem 506325785 Gastroesophageal reflux disease, esophagitis presence not specified (K21.9) Active confirmed Problem Pancreatic cyst (98464063) 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) Active confirmed Problem 08447859 Constipation, unspecified constipation type (K59.00) Active confirmed Problem 914308345 Abdominal pain, left lower quadrant (R10.32) Active confirmed Problem Gastroesophageal reflux disease (789107613) GERD (gastroesophageal reflux disease) (K21.9) Active confirmed Problem Irritable bowel syndrome characterized by constipation (087571497) Irritable bowel syndrome with constipation (K58.1) Active confirmed Problem Irritable bowel syndrome (95348616) Irritable bowel syndrome with both constipation and diarrhea (K58.2) Active confirmed Problem Thrombocytosis (disorder) (7516652) Thrombocytosis, unspecified (D75.839) Active confirmed Problem Neoplasm of digestive system (752733221) IPMN (intraductal papillary mucinous neoplasm) (D49.0) Active confirmed Vital Signs Blood pressure diastolic 77 mm Hg 04/03/2025 Height 64 in 04/03/2025 Blood pressure systolic 111 mm Hg 04/03/2025 Weight 136 lbs 04/03/2025 BMI 23.34 kg/m2 04/03/2025 Procedures Procedure Date Ordered Date Performed Result Body Sit e UPPER GI ENDOSCOPY 04/03/2025 N/A COLONOSCOPY 04/03/2025 N/A Encounters Encounter Location Date Provider Diagnosis [facility] [address] [place] [phone] 09/28/2024 Amilcar Sosa Gastroesophageal ref lux disease, esophagitis presence not specified K21.9 ; Irritable bowel syndrome with constipation K58.1 ; Encounter for screening for malignant neoplasm of colon Z12.11 ; Constipation, unspecified constipation type K59.00 and Pancreatic cyst K86.[address] [place] [address] [place] [phone] 04/03/2025 Amilcar Sosa Change in bowel habi ts R19.4 ; Irritable bowel syndrome with both constipation and diarrhea K58.2 ; GERD (gastroesophageal reflux disease) K21.9 and IPMN (intraductal papillary mucinous neoplasm) D49.0 [facility] [address] [place] [phone] 06/28/2024 Amilcar Sosa [facility] [address] [place] [address] 07/05/2024 Amilcar Sosa Diarrhea R19.7 [facility] [address] [place] [address] 07/10/2024 Amilcar Sosa Diarrhea R19.7 and Thrombocytosis, unspecified D75.839 [facility] [address] [place] [address] 07/20/2024 Amilcar Sosa [facility] [address] [place] [address] 09/28/2024 Amilcar Sosa Assessments Encounter Date Diagnosis [...] again for allowing me to participate in Coredll's care. I shall continue to keep you [...] will be having it done up at [facility] as it is ordered by her [place] physicians in regard to the follow-up of [...] will be having it done up at [facility] as it is ordered by her [place] physicians in regard to the follow-up of [...] will be having it done up at [facility] as it is ordered by her [place] physicians in regard to the follow-up of [...] will be having it done up at [facility] as it is ordered by her [place] physicians in regard to the follow-up of [...] (ICD-10 - K86.2) Need MRI report from [facility] from 06/2024 Overall, Cordell appears well. [...] Name:Amilcar Quintero Sheila , 07/04/2025 10:20:00 AM, [address] [place] [address] , [place], [place], [phone], Provider Name:Amilcar Quintero Sheila , 09/27/2025 09:00:00 AM, [address] [place] [address], [address], [place], [address], Insurance Providers Payer Name Payer Address Payer Phone Subscriber Number Group Number Insured Name Patient Relationship to Insured Coverage Start Date Coverage End Date MEDICARE OF [place] [address] [place] [address] [phone] [id number] LENA Wright CORDELL Self - patient is the insured [facility] ([facility] [address] [place] [address] [id number] CORDELL ORDAZ Self - patient is the insured Medical (General) History Medical History History ICD Code Screening colonoscopy 05-24-2009--negativ e EGD 01-05-2002 and in 11/2016--small HH, n o esophagitis, no Hernandes's Asthma--presently asymptomatic 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 Dillard Mitral valve prolapse Lyme's disease/Fibromyalgia--Amitryptile ne and Gabapentin Migraines-on Propranolol Hyperlipidemia Arthritis in left foot--Meloxicam/Cortis one injections Denies NM,DM,CVA,renal disease Renal cancer with surgery in 06/2018 [...] 11/18/2022 Left kidney removed for [facility] at [facility] by Dr. Corrales 06/2018 Uterine polyps Breast biopsy -2013--breast-left--LCIS Left ovary removed and appy Broken ankle/beau and screws right Cyst removed both breasts Tonsillectomy
--- OUTSIDE RECORDS SUMMARY | 2025-05-15 14:13 | XMS_ITS | Encounter Summary ---
Author Organization [facility] Address [address] [place] [address] Phone Care Team Providers Care Utility Porter Name Role Phone Regino Coleman MD Primary Care Provider Fallon Dillard MD Unavailable Jr Hogue MD Primary Care Provid er Encounter Details Date Type Department Care Team (Late st Contact Info) Description 06/16/2018 Procedure Pass [facility] [address] [place] [address] Social History Tobacco Use Types Packs/Day Years [...] st Contact Info) Description 08/15/2024 Procedure Pass [address] [address] 08/06/2025 9:15 AM EDT Appointment [address] [address] Ayaan Corrales MD, [place] [address] [place] [address] [facility] [address] [place] [address] [email or web address] 08/06/2025 10:00 AM EDT Appointment [facility], X-Ray - [address] [address] Ayaan Corrales MD, [place] [address], [facility] [address] [place] [address] [email or web address] documented as of this encounter Visit Diagnoses Not on filedocumented in this encounter Care Teams Utility Porter Relationship Specialty Start Date End Date Regino Coleman MD [address] [place] [id number] PCP - General Internal Medicine 04/29/18 04/04/25 Jr Hogue MD [address] [place] [id number] PCP - General Internal Medicine 04/05/25 Fallon Dillard MD [address] [place] [address] [email or web address] [employer] Systemspromed[facility] def[facility] hospitalEnkari, Ltd[facility] Referring Physician Hematology and Oncology 04/29/18 documented as of this encounter Additional Source Comments The information contained in this document represents components of the legal health record. It is not the complete legal health record.[facility]
== END 2025-05-15 14:49 | disposition home or self-care (01) ==
PROVIDERS: PCP Internal Medicine; Visit Provider Physician Assistant Medical
DX: J32.0 Chronic maxillary sinusitis (principal)

== ENCOUNTER 2025-05-28 13:50 | Outpatient (AMB) | payer MEDICARE, OTHER, SELFPAY ==
--- OUTSIDE RECORDS SUMMARY | 2024-12-11 04:15 | XMS_ITS ---
Author Organization [facility] Address [address] [place] [address] Care Team Providers Care Plastic Mixer Name Role Phone Lennie, Kartik Primary Care Provider [phone] Black, Aye Unavailable [phone] Allergies Allergen (clinical drug ingredient) Drug/Non Drug [...] Negative Encounters Encounter Location Date Provider Diagnosis [facility] [place] [address] [place] [address] 12/11/2024 Aye Bliss Plan Of Treatment Next Appt Details Provider Name:Aye Bliss , 08/27/2025 08:15:00 AM, [address] [place], [address], Progress Notes * Ashvin HAHNOB: [birth year] (69 yo F)Acc No.[id number]:12/11/2024 Progress Note Patient: Rebekah POLO Provider: Alicja Bliss DPM :1955 A ge:69 Y S ex:Female Date:12/11/2024 Address:[address] [place] [address] Pcp:Jr Hogue Subjective: * Chief Complaints: * [...] denies.? C ardiovascular: Pacemaker d enies. M PRIME MINISTER a dmits. W PW d enies. C [...] d enies. P odiatric: Comments S [facility] for comments. I nteg.: Marques d enies. [...] 12/11/2024 Generated for Chandler bentley/Brennon/Nirav on: 0 05/28/2025 02:41 PM EDT
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
[2025-05-28 13:57] VITALS: BP 148/82; PULSE 85; O2SAT 97; BMI 24.4
[2025-05-28 14:20] VITALS: BP 140/80
--- OUTSIDE RECORDS SUMMARY | 2025-05-28 14:41 | XMS_ITS | Encounter Summary ---
Author Organization [facility] Address [address] [place] [address] Phone Care Team Providers Care Real Estate Listing Consultant Name Role Phone Regino Coleman MD Primary Care Provider [phone] Encounter Details Date Type Department Care Team (Late st Contact Info) Description 11/25/2022 Telephone [facility] [address] [place] [address] Ying Medrano Social History Tobacco [...] called to relay that Dr. Reyes from [facility] had recently put a stent in [...] in this encounter Care Teams Real Estate Listing Consultant Relationship Specialty Start Date End Date Regino Coleman MD [address] VIR[place]IERICKY FAUSTIN PCP - General 10/21/20 documented as of this encounter
--- OUTSIDE RECORDS SUMMARY | 2025-05-28 14:41 | XMS_ITS | Encounter Summary ---
Author Organization [facility] Address [address] [place] [address] Phone Care Team Providers Care Grain Elevator Agent Name Role Phone Regino Coleman MD Primary Care Provider Fallon Dillard MD Unavailable [phone] Jr Hogue MD Primary Care Provid er Encounter Details Date Type Department Care Team (Late st Contact Info) Description 06/16/2018 Procedure Pass [facility] Periop [address] [place] [address] Social History Tobacco Use Types Packs/Day Years [...] st Contact Info) Description 08/15/2024 Procedure Pass [address] [address] 08/06/2025 9:15 AM EDT Appointment [address] [address] Ayaan Corrales MD, MS [address] [place] [address] [facility] [address] [place] [address] [email or web address] 08/06/2025 10:00 AM EDT Appointment [facility], X-Ray - [address] [address] Ayaan Corrales MD, MS [address] Oliveira, [facility] [address] [place] [address] [email or web address] documented as of this encounter Visit Diagnoses Not on filedocumented in this encounter Care Teams Grain Elevator Agent Relationship Specialty Start Date End Date Regino Coleman MD [address] [place] [address] PCP - General Internal Medicine 04/29/18 04/04/25 Jr Hogue MD [address] [place] [address] PCP - General Internal Medicine 04/05/25 Fallon Dillard MD [address] [place] [address] [email or web address] Referring Physician Hematology and Oncology 04/29/18 documented as of this encounter Additional Source Comments The information contained in this document represents components of the legal health record. It is not the complete legal health record.[facility]
--- OUTSIDE RECORDS SUMMARY | 2025-05-28 14:41 | XMS_ITS | Patient Health Record ---
Author Organization [facility] Address [address] [place] [address] Care Team Providers Care Wood Piler Name Role Phone DESHAUN OROURKE Primary Care Provider Amilcar Santiago Unavailable [phone] Allergies No Known Allergies Results Component Value Reference Range Notes Calprotectin, Fecal Reviewed date:07/21/2024 12:26:40 PM Interpretation: Performing Lab:[facility], [address] [place] [phone] Notes/Report: Calprotectin, Fecal 10 Reference Range: <50 [...] borderline values. THIS TEST WAS PERFORMED AT: [employer] [address] [place] [address] RAFFY WITT MD,PHD,CHITRA GI PANEL Reviewed date:07/08/2024 08:13:38 PM Interpretation: Performing Lab:[facility], [address] [place] [phone] Notes/Report: Campylobacter Not Detected Not Detect. Plesiomonas [...] is performed by Multiplexed PCR, utilizing the [employer] Array. Complete Blood Count Auto Di ff Reviewed date:07/06/2024 12:32:00 PM Interpretation: Performing Lab:[facility], [address] [place] [address], [place] [address] Notes/Report: White Blood Count 7.2 4.8-10.8 X10*3/uL [...] te Reviewed date:07/06/2024 04:52:01 PM Interpretation: Performing Lab:[address] [address] Notes/Report: Erythrocyte Sedimentation Rate 8 0-20 MM/HR Patients with polycythemia and many hemoglobin abnormalities may have depressed sed rates whereas patients with anemia may have elevated sed rates. C Reactive Protein Reviewed date:07/06/2024 04:51:54 PM Interpretation: Performing Lab:[address] [address] Notes/Report: C Reactive Protein < 0.10 < or = 0.50 mg/dL Leukocytes Stool Qualitative Reviewed date:07/08/2024 08:12:59 PM Interpretation: Performing Lab:[address] [address] Notes/Report: Leukocytes Stool Qualitative NEGATIVE NEGATIVE CDiff Gene PCR Reviewed date:07/08/2024 08:12:52 PM Interpretation: Performing Lab:[facility], [address] [place] [address] Notes/Report: CDiff Gene PCR NEGATIVE Negative If C. difficile strongly suspected despite one negative test, a second test may be sent vs. empiric treatment for C. difficile infection. Complete Blood Count Auto Di ff Reviewed date:08/01/2024 12:13:53 PM Interpretation: Performing Lab:[facility], [address] [place] [address] Notes/Report: White Blood Count 7.1 4.8-10.8 X10*3/uL [...] Status Risk Notes Problem Irritable bowel syndrome (77610055) Irritable bowel syndrome (K58.9) Active confirmed Problem 980415210 Encounter for screening for malignant neoplasm of colon (Z12.11) Active confirmed Problem Diarrhea (20573555) Diarrhea (R19.7) Active con firmed Problem Change in bowel habit (46604939) Change in bowel habits (R19.4) Active confirmed Problem Screening for malignant neoplasm of rectum (019821645) Encounter for screening for malignant neoplasm of rectum (Z12.12) Active confirmed Problem 08791182 Blood in stool (K92.1) Active confirmed Problem 620343041 Gastroesophageal reflux disease without esophagitis (K21.9) Active confirmed Problem 044091409 Gastroesophageal reflux disease, esophagitis presence not specified (K21.9) Active confirmed Problem Pancreatic cyst (19264593) 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) Active confirmed Problem 26686858 Constipation, unspecified constipation type (K59.00) Active confirmed Problem 197807744 Abdominal pain, left lower quadrant (R10.32) Active confirmed Problem Gastroesophageal reflux disease (178093637) GERD (gastroesophageal reflux disease) (K21.9) Active confirmed Problem Irritable bowel syndrome characterized by constipation (287570951) Irritable bowel syndrome with constipation (K58.1) Active confirmed Problem Irritable bowel syndrome (56861251) Irritable bowel syndrome with both constipation and diarrhea (K58.2) Active confirmed Problem Thrombocytosis (disorder) (8413041) Thrombocytosis, unspecified (D75.839) Active confirmed Problem Neoplasm of digestive system (891337829) IPMN (intraductal papillary mucinous neoplasm) (D49.0) Active confirmed Vital Signs Blood pressure diastolic 77 mm Hg 04/03/2025 Height 64 in 04/03/2025 Blood pressure systolic 111 mm Hg 04/03/2025 Weight 136 lbs 04/03/2025 BMI 23.34 kg/m2 04/03/2025 Procedures Procedure Date Ordered Date Performed Result Body Sit e UPPER GI ENDOSCOPY 04/03/2025 N/A COLONOSCOPY 04/03/2025 N/A Encounters Encounter Location Date Provider Diagnosis [facility] [address] [place] [address] 09/28/2024 Amilcar Sosa Gastroesophageal ref lux disease, esophagitis presence not specified K21.9 ; Irritable bowel syndrome with constipation K58.1 ; Encounter for screening for malignant neoplasm of colon Z12.11 ; Constipation, unspecified constipation type K59.00 and Pancreatic cyst K86.[address] [place] [address] [place] [address] 04/03/2025 Amilcar Sosa Change in bowel habi ts R19.4 ; Irritable bowel syndrome with both constipation and diarrhea K58.2 ; GERD (gastroesophageal reflux disease) K21.9 and IPMN (intraductal papillary mucinous neoplasm) D49.0 [facility] [address] [place] [address] 06/28/2024 Amilcar Sosa [facility] [address] [place] [address] 07/05/2024 Amilcar Sosa Diarrhea R19.7 [facility] [address] [place] [address] 07/10/2024 Amilcar Sosa Diarrhea R19.7 and Thrombocytosis, unspecified D75.839 [facility] [address] [place] [address] 07/20/2024 Amilcar Sosa [facility] [address] [place] [address] 09/28/2024 Amilcar Sosa Assessments Encounter Date Diagnosis [...] will be having it done up at [facility] as it is ordered by her [place] physicians in regard to the follow-up of [...] will be having it done up at [facility] as it is ordered by her [place] physicians in regard to the follow-up of [...] will be having it done up at [facility] as it is ordered by her [place] physicians in regard to the follow-up of [...] will be having it done up at [facility] as it is ordered by her [place] physicians in regard to the follow-up of [...] (ICD-10 - K86.2) Need MRI report from [facility] from 06/2024 Overall, Cordell appears well. We [...] Name:Amilcar Quintero Sheila , 07/04/2025 10:20:00 AM, [address] [place] [address] , [place], [place], [phone], Provider Name:Amilcar Quintero Sheila , 09/27/2025 09:00:00 AM, [address] [place] [address], [address], [place], [address], Insurance Providers Payer Name Payer Address Payer Phone Subscriber Number Group Number Insured Name Patient Relationship to Insured Coverage Start Date Coverage End Date MEDICARE OF [place] [address] [place] [address] [id number] LENA Wright CORDELL Self - patient [facility] the insured 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 Dillard Mitral valve prolapse Lyme's disease/Fibromyalgia--Amitryptile ne and Gabapentin Migraines-on Propranolol Hyperlipidemia Arthritis in left foot--Meloxicam/Cortis one injections Denies [place],DM,CVA,renal disease Renal cancer with surgery in 06/2018 [...] 11/18/2022 Left kidney removed for cancer [facility] by Dr. Corrales 06/2018 Uterine polyps Breast biopsy -2013--breast-left--LCIS Left ovary removed and appy Broken ankle/beau and screws right Cyst removed both breasts Tonsillectomy
== END 2025-05-28 14:19 | disposition home or self-care (01) ==
LOC: HO.HKA 13:51
PROVIDERS: PCP Internal Medicine; Visit Provider Internal Medicine Hypertension Specialist
DX: N18.9 Chronic kidney disease, unspecified (principal); Z90.5 Acquired absence of kidney
CPT/HCPCS: 99214

== ENCOUNTER → 2025-05-28 13:50 | Outpatient (BNVA) | payer MEDICARE, OTHER, SELFPAY | PROVIDERS: PCP Internal Medicine; Visit Provider Internal Medicine Hypertension Specialist | DX: N18.9 Chronic kidney disease, unspecified (principal); Z90.5 Acquired absence of kidney; Z85.528 Personal history of other malignant neoplasm of kidney | CPT/HCPCS: 99212 ==

== ENCOUNTER 2025-05-29 08:28 | Outpatient (AMB) | payer MEDICARE, OTHER, SELFPAY ==
--- OUTSIDE RECORDS SUMMARY | 2024-12-11 04:15 | XMS_ITS ---
Author Organization [facility] Address [address] [place] [address] Care Team Providers Care Awning Assembler Name Role Phone Lennie, Kartik Primary Care Provider Black, Aye Unavailable [phone] Allergies Allergen (clinical drug ingredient) Drug/Non Drug [...] Negative Encounters Encounter Location Date Provider Diagnosis [facility] [place] [address] [place] [address] 12/11/2024 Aye Bliss Plan Of Treatment Next Appt Details Provider Name:Aye Bliss , 08/27/2025 08:15:00 AM, [address] [place], [address], Progress Notes * Ashvin HAHNOB: [birth year] (69 yo F)Acc No.[id number]:12/11/2024 Progress Note Patient: Rebekah POLO Provider: Alicja Bliss DPM :1955 A ge:69 Y S ex:Female Date:12/11/2024 Address:[address] [place] [id number] Pcp:Jr Hogue Subjective: * Chief Complaints: * [...] denies.? C ardiovascular: Pacemaker d enies. 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 W PW d enies. C [...] eakness d enies. P odiatric: Comments S [facility] for comments. I nteg.: Marques d enies. [...] 12/11/2024 Generated for Chandler bentley/Brennon/Nirav on: 0 05/29/2025 09:12 AM EDT
[2025-05-29 08:39] VITALS: BMI 24.4
--- NOTE | 2025-05-29 08:39 | A.OFFVIS_ITS ---
Vital Signs 05/29/25 08:39 Height 5 ft 3 in Weight 138 lb BMI 24.4 Intake Visit Reasons: New Prob-Left Hand Pain Intake Note: Rebekah 69 yr old right hand dominant female who is retired, presents today for a new problem visit. States she has a cyst that is growing in her dorsal aspect of wrist. States this is causing her discomfort with certain movements and would like to discuss aspiration vs surgical intervention. Denies numbness, tingling or locking of any finger. Hx of left basal joint O.A injections with Dr Boss. States she is currently taking prednisone for a sinus infection and feels like her wrist pain has improved. Allergies fentanyl (FENTANYL) Allergy (Severe, Verified 05/29/25 08:45) SEVERE VOMITING, severe headache, vomiting sulfamethoxazole (From BACTRIM) Allergy (Severe, Verified 05/29/25 08:45) CANNOT TAKE-ONLY HAS ONE KIDNEY trimethoprim (From BACTRIM) Allergy (Severe, Verified 05/29/25 08:45) CANNOT TAKE-ONLY HAS ONE KIDNEY azithromycin (AZITHROMYCIN) Allergy (Intermediate, Verified 05/29/25 08:45) DIARRHEA HPI HPI New Prob-Left Hand Pain: Details: Rebekah is a 69 year old woman who presents with complaints of a painful left hand mass. She has a history of basal joint injections, with good relief, and her last injection was on 03/13/25. Her chief complaint today is of a painful mass on the dorsal aspect of her hand, involving the extensor tendons to the index and middle fingers at about the CMC joint levels. They were painful, but he since she has started the prednisone they are no longer painful. She is currently taking Prednisone for a sinus infection and she says since she began her overall thumb & hand pain has improved somewhat. She is about to finish her two week course today. She denies any numbness, tingling, locking, or catching She says she was seen by Rheumatology in [place] and says all the tests were negative for RA. She was not happy with her treatment there. 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 History of kidney cancer Chronic kidney disease Migraines Osteoarthritis Fibromyalgia Hypercholesteremia Surgical History History of bladder surgery History of colonoscopy (~08/12/17) History of hernia repair H/O hysterectomy for benign disease Hx of surgical procedure (~08/03/23) H/O vaginal hysterectomy History of incisional hernia repair (~11/29/19) History of nephrectomy, left (~06/2018) Status post biopsy of kidney (~04/2018) History of breast biopsy (~05/11/14) History of tonsillectomy and adenoidectomy S/P removal of left ovary (~1978) History of removal of cyst (~1972) History of ankle surgery (~2003) H/O kidney removal History of breast surgery Hx of tonsillectomy Family History Father Stomach cancer Prostate cancer High cholesterol Sister Stroke Mother High cholesterol CLL (chronic lymphocytic leukemia) Maternal Aunt Breast cancer Social History Household Members: Spouse Housing: House Alcohol intake: current Alcohol intake frequency: holidays/special occasions only Patient Tobacco Use Status: Never used Tobacco e-Cigarette/Vaping Use: Never Used Advance Directives Date on File: 07/25/20 service: No Current occupational status: 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 Sexual orientation: Straight/Heterosexual Gender identity: Female Cognitive needs: No Hearing needs: Yes (bilateral hearing aids) Vision needs: Yes (rx glasses) Female Reproductive History Menstrual Age of Menarche: 10 Physical Exam Vital Signs: BMI result Body Mass Index 24.4 Const General: comfortable and no acute distress Orientation/consciousness: patient oriented x3 Resp Effort & Inspection: normal respiratory effort GI Palpation (GI): Soft to palpation and nontender Neuro General: patient oriented x3 Extrem Other: Evaluation of Left Upper Extremity: The patient is alert, oriented, and in no acute distress Neuro: Median, Ulnar, Radial nerves motor and sensory intact and sensation is normal to the tips of all digits Vascular: Cap refill brisk ROM: She can make a fist and extend all her digits Positive CMC grind Negative shoulder sign Most TTP over the basal joint No tenderness over the IP joint or MCP joint of the thumb. No tenderness over the A1 manoj No locking or catching No 1st dorsal compartment tenderness. She had a negative Elida test. Regarding the extensor tendons over the bilateral 3rd MCP joint, These appear to have normalized and are not subluxating today in clinic Not painful or tender, and the patient says it is not very bothersome. No tenderness over the a1 manoj No locking or catching Small mass ~5-6mm diameter on the EDC tendon to the left index finger, at about the CMC joints. moves with the tendon, no tenderness today, no pain with resisted finger extension Small mass ~7-8mm diameter on the EDC tendon to the left middle finger, at about the CMC joints. moves with the tendon, no tenderness today, no pain with resisted finger extension Psych Appearance: grossly normal Affect: normal affect Attitude: cooperative Assessment & Plan Assessment & Plan (1) Mass of joint of left hand: Code(s): M25.842 - Other specified joint disorders, left hand Category: Medical Plan Assessment and plan: 1. Left middle finger EDC tendon nodule ~7-8mm in diameter At about the CMC joint, moves with the tendon No tenderness today, but no pain with resisted index finger extension We will manage this conservatively at this time. 2. Left index finger EDC tendon nodule ~5-6mm in diameter At about the CMC joint, moves with the tendon No tenderness today, but no pain with resisted index finger extension We will manage this conservatively at this time. Her pain has improved with being on Prednisone I discussed a possible tenosynovectomy in the future, should that become painful We will discuss this at her next appointment, and see how she is doing when off of Prednisone. I recommend she be seen here by Rheumatology to assess for possible inflammatory conditions 3. Left basal joint osteoarthritis, S/P injections Date of Injections: 03/13/25, 09/13/24, 02/22/24, 01/19/23, 07/29/22, 12/17/21, 09/02/21, and 04/30/21 with good results I educated her about this condition Injections appear to be working well overall for her I discussed activity modification, they should limit or avoid any heavy or repetitive pinching or gripping activities 4. Ulnar subluxation of the extensor tendon to the left 3rd MCP joint/radial sagittal band insufficiency This appears to have improved with time. Being managed conservatively 5. Ulnar subluxation of the extensor tendon to the right 3rd MCP joint This also appears to have improved. Not painful or bothering her. Being managed conservatively Scribed for Mary Boss MD by Solo Malin, medical office secretary, on 05/29/25 at 9:00 AM, EST. Orders: Orders XR hand LT min 3V Today M79.642 - Pain in left hand Coding Level of Care Code Est Pt Level 3 (80568) Diagnoses Mass of joint of left hand M25.842
--- OUTSIDE RECORDS SUMMARY | 2025-05-29 09:12 | XMS_ITS | Encounter Summary ---
Author Organization [facility] Address [address] [place] [address] Phone Care Team Providers Care Custom Miller Name Role Phone Regino Coleman MD Primary Care Provider [phone] Encounter Details Date Type Department Care Team (Late st Contact Info) Description 11/25/2022 Telephone [facility] [address] [place] [address] Ying Medrano Social History Tobacco [...] Pls advise * Telephone Encounter - Ying eMdrano - 11/25/2022 3:43 PM EST This PT called to relay that Dr. Reyes from [facility] had recently put a stent in [...] on filedocumented in this encounter Care Teams Custom Miller Relationship Specialty Start Date End Date Regino Coleman MD [address] [place] PCP - General 10/21/20 documented as of this encounter
--- OUTSIDE RECORDS SUMMARY | 2025-05-29 09:12 | XMS_ITS | Encounter Summary ---
Author Organization [facility] Address [address] [place] [address] Phone Care Team Providers Care Back Tender Insulation Board Name Role Phone Regino Coleman MD Primary Care Provider Fallon Dillard MD Unavailable [phone] Jr Hogue MD Primary Care Provid er Encounter Details Date Type Department Care Team (Late st Contact Info) Description 06/16/2018 Procedure Pass [facility] Periop [address] [place] [address] Social History Tobacco Use Types Packs/Day Years [...] st Contact Info) Description 08/15/2024 Procedure Pass [address] [address] 08/06/2025 9:15 AM EDT Appointment [address] [address] Ayaan Corrales MD, MS [address] [place] [address] [facility] [address] [place] [address] [email or web address] 08/06/2025 10:00 AM EDT Appointment [facility], X-Ray - [address] [address] Ayaan Corrales MD, MS [address] Regin[address] Oliveira, [facility] [address] [place] [address] [email or web address] documented as of this encounter Visit Diagnoses Not on filedocumented in this encounter Care Teams Back Tender Insulation Board Relationship Specialty Start Date End Date Regino Coleman MD [address] [place] [address] PCP - General Internal Medicine 04/29/18 04/04/25 Jr Hogue MD [address] [place] [address] PCP - General Internal Medicine 04/05/25 Fallon Dillard MD [address] [place] [address] [email or web address] Referring Physician Hematology and Oncology 04/29/18 documented as of this encounter Additional Source Comments The information contained in this document represents components of the legal health record. It is not the complete legal health record.[facility]
--- OUTSIDE RECORDS SUMMARY | 2025-05-29 09:13 | XMS_ITS | Patient Health Record ---
Author Organization [facility] Address [address] [place] [address] Care Team Providers Care Tree Sapper Name Role Phone DESHAUN OROURKE Primary Care Provider Amilcar Santiago Unavailable [phone] Allergies No Known Allergies Results Component Value Reference Range Notes Calprotectin, Fecal Reviewed date:07/21/2024 12:26:40 PM Interpretation: Performing Lab:[facility], [address] [place] [address] Notes/Report: Calprotectin, Fecal 10 Reference Range: <50 [...] borderline values. THIS TEST WAS PERFORMED AT: [employer] [address] [place] [address] RAFFY WITT MD,PHD,CHITRA GI PANEL Reviewed date:07/08/2024 08:13:38 PM Interpretation: Performing Lab:[facility], [address] [place] [address] Notes/Report: Campylobacter Not Detected Not Detect. Plesiomonas [...] is performed by Multiplexed PCR, utilizing the Set[employer] Array. Complete Blood Count Auto Di ff Reviewed date:07/06/2024 12:32:00 PM Interpretation: Performing Lab:[facility], [address] [place] [address], [place] [address] Notes/Report: White Blood Count 7.2 4.8-10.8 X10*3/uL [...] te Reviewed date:07/06/2024 04:52:01 PM Interpretation: Performing Lab:[address] [address] Notes/Report: Erythrocyte Sedimentation Rate 8 0-20 MM/HR Patients with polycythemia and many hemoglobin abnormalities may have depressed sed rates whereas patients with anemia may have elevated sed rates. C Reactive Protein Reviewed date:07/06/2024 04:51:54 PM Interpretation: Performing Lab:[address] [address] Notes/Report: C Reactive Protein < 0.10 < or = 0.50 mg/dL Leukocytes Stool Qualitative Reviewed date:07/08/2024 08:12:59 PM Interpretation: Performing Lab:[address] [address] Notes/Report: Leukocytes Stool Qualitative NEGATIVE NEGATIVE CDiff Gene PCR Reviewed date:07/08/2024 08:12:52 PM Interpretation: Performing Lab:[facility], [address] [place] [address] Notes/Report: CDiff Gene PCR NEGATIVE Negative If C. difficile strongly suspected despite one negative test, a second test may be sent vs. empiric treatment for C. difficile infection. Complete Blood Count Auto Di ff Reviewed date:08/01/2024 12:13:53 PM Interpretation: Performing Lab:[facility], [address] [place] [address] Notes/Report: White Blood Count 7.1 4.8-10.8 X10*3/uL [...] Status Risk Notes Problem Irritable bowel syndrome (21533955) Irritable bowel syndrome (K58.9) Active confirmed Problem 555971474 Encounter for screening for malignant neoplasm of colon (Z12.11) Active confirmed Problem Diarrhea (64471229) Diarrhea (R19.7) Active con firmed Problem Change in bowel habit (94505256) Change in bowel habits (R19.4) Active confirmed Problem Screening for malignant neoplasm of rectum (539049504) Encounter for screening for malignant neoplasm of rectum (Z12.12) Active confirmed Problem 64726755 Blood in stool (K92.1) Active confirmed Problem 337609043 Gastroesophageal reflux disease without esophagitis (K21.9) Active confirmed Problem 838640063 Gastroesophageal reflux disease, esophagitis presence not specified (K21.9) Active confirmed Problem Pancreatic cyst (77428314) 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) Active confirmed Problem 77013426 Constipation, unspecified constipation type (K59.00) Active confirmed Problem 260345470 Abdominal pain, left lower quadrant (R10.32) Active confirmed Problem Gastroesophageal reflux disease (277441716) GERD (gastroesophageal reflux disease) (K21.9) Active confirmed Problem Irritable bowel syndrome characterized by constipation (889750084) Irritable bowel syndrome with constipation (K58.1) Active confirmed Problem Irritable bowel syndrome (03294510) Irritable bowel syndrome with both constipation and diarrhea (K58.2) Active confirmed Problem Thrombocytosis (disorder) (9439325) Thrombocytosis, unspecified (D75.839) Active confirmed Problem Neoplasm of digestive system (142561509) IPMN (intraductal papillary mucinous neoplasm) (D49.0) Active confirmed Vital Signs Blood pressure diastolic 77 mm Hg 04/03/2025 Height 64 in 04/03/2025 Blood pressure systolic 111 mm Hg 04/03/2025 Weight 136 lbs 04/03/2025 BMI 23.34 kg/m2 04/03/2025 Procedures Procedure Date Ordered Date Performed Result Body Sit e UPPER GI ENDOSCOPY 04/03/2025 N/A COLONOSCOPY 04/03/2025 N/A Encounters Encounter Location Date Provider Diagnosis [facility] [address] [place] [address] 09/28/2024 Amilcar Sosa Gastroesophageal ref lux disease, esophagitis presence not specified K21.9 ; Irritable bowel syndrome with constipation K58.1 ; Encounter for screening for malignant neoplasm of colon Z12.11 ; Constipation, unspecified constipation type K59.00 and Pancreatic cyst K86.[address] [place] [address] [place] [address] 04/03/2025 Amilcar Sosa Change in bowel habi ts R19.4 ; Irritable bowel syndrome with both constipation and diarrhea K58.2 ; GERD (gastroesophageal reflux disease) K21.9 and IPMN (intraductal papillary mucinous neoplasm) D49.0 [facility] [address] [place] [address] 06/28/2024 Amilcar Sosa [facility] [address] [place] [address] 07/05/2024 Amilcar Sosa Diarrhea R19.7 [facility] [address] [place] [address] 07/10/2024 Amilcar Sosa Diarrhea R19.7 and Thrombocytosis, unspecified D75.839 [facility] [address] [place] [address] 07/20/2024 Amilcar Sosa [facility] [address] [place] [address] 09/28/2024 Amilcar Sosa Assessments Encounter Date Diagnosis [...] will be having it done up at [facility] as it is ordered by her [place] [facility] in regard to the follow-up of [...] will be having it done up at [facility] as it is ordered by her [place] [facility] in regard to the follow-up of [...] will be having it done up at [facility] as it is ordered by her [place] [facility] in regard to the follow-up of [...] will be having it done up at [facility] as it is ordered by her [place] [facility] in regard to the follow-up of [...] report from [facility] from 06/2024 Overall, Cordell appears well. We [...] COLONOSCOPY 04/03/2025 CRP 07/05/2024 CBC w DIFF 07/05/2024 CBC w DIFF 07/10/2024 SED RATE (ESR) 07/05/2024 CELIAC PANEL #10 01/04/2024 STOOL WBC 07/05/2024 C DIFFICILE RFLX PCR 07/05/2024 Future Test Test Name Order Date UPPER GI ENDOSCOPY 07/24/2016 COLONOSCOPY 05/25/2017 Next Appt Details Provider Name:Amilcar Quintero Sheila , 07/04/2025 10:20:00 AM, [address] [place] [address] , [place], [place], [id number], Provider Name:Amilcar Quintero Sheila , 09/27/2025 09:00:00 AM, [address] [place] [address], [address], [place], [address], Insurance Providers Payer Name Payer Address Payer Phone Subscriber Number Group Number Insured Name Patient Relationship to Insured Coverage Start Date Coverage End Date MED[place]ARE OF [place] [address] [place] [address] [id number] LENA Wright CORDELL Self - patient is the insured [facility] [employer] ([facility]) [address] [place] [address] [phone] [id number] CORDELL ORDAZ Self - patient is the insured Medical (General) History Medical History History ICD Code Screening colonoscopy 05-24-2009--negativ e EGD 01-05-2002 and in 11/2016--small HH, n o esophagitis, no Hernandes's Asthma--presently asymptomatic 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 Dillard Mitral valve prolapse Lyme's disease/Fibromyalgia--Amitryptile ne and Gabapentin Migraines-on Propranolol Hyperlipidemia Arthritis in left foot--Meloxicam/Cortis one injections Denies [place],DM,CVA,renal disease Renal cancer with surgery in 06/2018 [...] 11/18/2022 [facility] Dr. Corrales 06/2018 Uterine polyps Breast biopsy -2013--breast-left--LCIS Left ovary removed and appy Broken ankle/beau and screws right Cyst removed both breasts Tonsillectomy
== END 2025-05-29 09:24 | disposition home or self-care (01) ==
LOC: HO.HOS 08:29
PROVIDERS: PCP Internal Medicine; Visit Provider Orthopaedic Surgery
DX: M25.842 Other specified joint disorders, left hand (principal)
CPT/HCPCS: 99213

== ENCOUNTER → 2025-05-29 08:31 | Outpatient (BNV) | payer MEDICARE, OTHER, SELFPAY | PROVIDERS: Visit Provider Radiology Diagnostic Radiology | DX: M18.12 Unilateral primary osteoarthritis of first carpometacarpal joint, left hand (principal) | CPT/HCPCS: 73130 ==

== ENCOUNTER 2025-05-29 09:15 | Outpatient (REF) | payer MEDICARE, OTHER, SELFPAY ==
--- OUTSIDE RECORDS SUMMARY | 2024-12-11 04:15 | XMS_ITS ---
Author Organization [facility] Address [address] [place] [address] Care Team Providers Care Dentistry Professor Name Role Phone Lennie, Kartik Primary Care Provider Black, Aye Unavailable [phone] Allergies Allergen (clinical drug ingredient) Drug/Non Drug [...] Negative Encounters Encounter Location Date Provider Diagnosis [facility] [place] [address] [place] [address] 12/11/2024 Aye Bliss Plan Of Treatment Next Appt Details Provider Name:Aye Bliss , 08/27/2025 08:15:00 AM, [address] [place], [address], Progress Notes * Ashvin HAHNOB: [birth year] (69 yo F)Acc No.[id number]:12/11/2024 Progress Note Patient: Rebekah POLO Provider: Alicja Bliss DPM :1955 A ge:69 Y S ex:Female Date:12/11/2024 Address:[address] [place] [address] Pcp:Jr Hogue Subjective: * Chief Complaints: * [...] denies.? C ardiovascular: Pacemaker d enies. 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 W PW d enies. C [...] eakness d enies. P odiatric: Comments S [facility] for comments. I nteg.: Marques d [...] 12/11/2024 Generated for Chandler bentley/Brennon/Nirav on: 0 05/30/2025 09:56 AM EDT
--- NOTE | ~2025-05-29 | XR_ITS ---
EXAMINATION: XR HAND 3 OR MORE VIEWS LEFT HISTORY: M79.642 - Pain in left hand COMPARISON: Comparison is made with the prior examination dated 09/02/2021. FINDINGS: Three views of the left hand are submitted. The bones are osteopenic. There is no fracture or dislocation. There is severe osteoarthritis of the 1st carpometacarpal joint, with joint space narrowing and osteophyte formation. Again seen is ulnar negative variance. The soft tissues are unremarkable. XR/XR hand LT min 3V IMPRESSION: Severe osteoarthritis of the 1st carpometacarpal joint. Electronically signed by: Amilcar Pacheco MD 05/29/2025 08:58 AM EDT
--- OUTSIDE RECORDS SUMMARY | 2025-05-30 09:56 | XMS_ITS | Encounter Summary ---
Author Organization [facility] Address [address] [place] [address] Phone Care Team Providers Care Computer Instructor Name Role Phone Regino Coleman MD Primary Care Provider [phone] Encounter Details Date Type Department Care Team (Late st Contact Info) Description 11/25/2022 Telephone [facility] [address] [place] [address] Ying Medrano Social History Tobacco [...] called to relay that Dr. Reyes from [facility] had recently put a stent in [...] on filedocumented in this encounter Care Teams Computer Instructor Relationship Specialty Start Date End Date Regino Coleman MD [address] [place] PCP - General 10/21/20 documented as of this encounter
--- OUTSIDE RECORDS SUMMARY | 2025-05-30 09:57 | XMS_ITS | Patient Health Record ---
Author Organization [facility] Address [address] [place] [address] Care Team Providers Care African History Professor Name Role Phone DESHAUN OROURKE Primary Care Provider Amilcar Santiago Unavailable [phone] Allergies No Known Allergies Results Component Value Reference Range Notes Calprotectin, Fecal Reviewed date:07/21/2024 12:26:40 PM Interpretation: Performing Lab:[facility], [address] [place] [address] Notes/Report: Calprotectin, Fecal 10 Reference Range: <50 [...] borderline values. THIS TEST WAS PERFORMED AT: [employer] [address] [place] [address] RAFFY WITT MD,PHD,CHITRA GI PANEL Reviewed date:07/08/2024 08:13:38 PM Interpretation: Performing Lab:[facility], [address] [place] [address] Notes/Report: Campylobacter Not Detected Not Detect. Plesiomonas [...] is performed by Multiplexed PCR, utilizing the [employer] Array. Complete Blood Count Auto Di ff Reviewed date:07/06/2024 12:32:00 PM Interpretation: Performing Lab:[facility], [address] [place] [address], [place] [address] Notes/Report: White Blood Count 7.2 4.8-10.8 X10*3/uL [...] te Reviewed date:07/06/2024 04:52:01 PM Interpretation: Performing Lab:[address] [address] Notes/Report: Erythrocyte Sedimentation Rate 8 0-20 MM/HR Patients with polycythemia and many hemoglobin abnormalities may have depressed sed rates whereas patients with anemia may have elevated sed rates. C Reactive Protein Reviewed date:07/06/2024 04:51:54 PM Interpretation: Performing Lab:[address] [address] Notes/Report: C Reactive Protein < 0.10 < or = 0.50 mg/dL Leukocytes Stool Qualitative Reviewed date:07/08/2024 08:12:59 PM Interpretation: Performing Lab:[address] [address] Notes/Report: Leukocytes Stool Qualitative NEGATIVE NEGATIVE CDiff Gene PCR Reviewed date:07/08/2024 08:12:52 PM Interpretation: Performing Lab:[facility], [address] [place] [address] Notes/Report: CDiff Gene PCR NEGATIVE Negative If C. difficile strongly suspected despite one negative test, a second test may be sent vs. empiric treatment for C. difficile infection. Complete Blood Count Auto Di ff Reviewed date:08/01/2024 12:13:53 PM Interpretation: Performing Lab:[facility], [address] [place] [address] Notes/Report: White Blood Count 7.1 4.8-10.8 X10*3/uL [...] Status Risk Notes Problem Irritable bowel syndrome (61336968) Irritable bowel syndrome (K58.9) Active confirmed Problem 102726876 Encounter for screening for malignant neoplasm of colon (Z12.11) Active confirmed Problem Diarrhea (34764492) Diarrhea (R19.7) Active con firmed Problem Change in bowel habit (96354631) Change in bowel habits (R19.4) Active confirmed Problem Screening for malignant neoplasm of rectum (741725918) Encounter for screening for malignant neoplasm of rectum (Z12.12) Active confirmed Problem 26854383 Blood in stool (K92.1) Active confirmed Problem 140188479 Gastroesophageal reflux disease without esophagitis (K21.9) Active confirmed Problem 116015293 Gastroesophageal reflux disease, esophagitis presence not specified (K21.9) Active confirmed Problem Pancreatic cyst (38618758) 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) Active confirmed Problem 04933515 Constipation, unspecified constipation type (K59.00) Active confirmed Problem 412528927 Abdominal pain, left lower quadrant (R10.32) Active confirmed Problem Gastroesophageal reflux disease (232336714) GERD (gastroesophageal reflux disease) (K21.9) Active confirmed Problem Irritable bowel syndrome characterized by constipation (473102427) Irritable bowel syndrome with constipation (K58.1) Active confirmed Problem Irritable bowel syndrome (25389971) Irritable bowel syndrome with both constipation and diarrhea (K58.2) Active confirmed Problem Thrombocytosis (disorder) (2482796) Thrombocytosis, unspecified (D75.839) Active confirmed Problem Neoplasm of digestive system (114680966) IPMN (intraductal papillary mucinous neoplasm) (D49.0) Active confirmed Vital Signs Blood pressure diastolic 77 mm Hg 04/03/2025 Height 64 in 04/03/2025 Blood pressure systolic 111 mm Hg 04/03/2025 Weight 136 lbs 04/03/2025 BMI 23.34 kg/m2 04/03/2025 Procedures Procedure Date Ordered Date Performed Result Body Sit e UPPER GI ENDOSCOPY 04/03/2025 N/A COLONOSCOPY 04/03/2025 N/A Encounters Encounter Location Date Provider Diagnosis [facility] [address] [place] [address] 09/28/2024 Amilcar Sosa Gastroesophageal ref lux disease, esophagitis presence not specified K21.9 ; Irritable bowel syndrome with constipation K58.1 ; Encounter for screening for malignant neoplasm of colon Z12.11 ; Constipation, unspecified constipation type K59.00 and Pancreatic cyst K86.2 [place] [address] [place] [address] 04/03/2025 Amilcar Sosa Change in bowel habi ts R19.4 ; Irritable bowel syndrome with both constipation and diarrhea K58.2 ; GERD (gastroesophageal reflux disease) K21.9 and IPMN (intraductal papillary mucinous neoplasm) D49.0 [facility] [address] [place] [address] 06/28/2024 Amilcar Sosa [facility] [address] [place] [address] 07/05/2024 Amilcar Sosa Diarrhea R19.7 [facility] [address] [place] [address] 07/10/2024 Amilcar Sosa Diarrhea R19.7 and Thrombocytosis, unspecified D75.839 [facility] [address] [place] [address] 07/20/2024 Amilcar Sosa [facility] [address] [place] [address] 09/28/2024 Amilcar Sosa Assessments Encounter Date Diagnosis [...] will be having it done up at [facility] as it is ordered by her [place] [facility] in regard to the follow-up of [...] will be having it done up at [facility] as it is ordered by her [place] [facility] in regard to the follow-up of [...] will be having it done up at [facility] as it is ordered by her [place] [facility] in regard to the follow-up of [...] will be having it done up at [facility] as it is ordered by her [place] [facility] in regard to the follow-up of [...] (ICD-10 - K86.2) Need MRI report from [facility] from 06/2024 Overall, Cordell appears well. We [...] Name:Amilcar Quintero Sheila , 07/04/2025 10:20:00 AM, [address] [place] [address] , [place], [place], [phone], Provider Name:Amilcar Quintero Sheila , 09/27/2025 09:00:00 AM, [address] [place] [address], [address], [place], [address], Insurance Providers Payer Name Payer Address Payer Phone Subscriber Number Group Number Insured Name Patient Relationship to Insured Coverage Start Date Coverage End Date MEDICARE OF [place] [address] [place] [address] [phone] [id number] LENA Wright CORDELL Self - patient is the insured [email or web address] ([facility]) [address] [place] [address] [id number] CORDELL ORDAZ Self - patient is the insured Medical (General) History Medical History History ICD Code Screening colonoscopy 05-24-2009--negativ e EGD 01-05-2002 and in 11/2016--small HH, n o esophagitis, no Hernandes's Asthma--presently asymptomatic 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 Dillard Mitral valve prolapse Lyme's disease/Fibromyalgia--Amitryptile ne and Gabapentin Migraines-on Propranolol Hyperlipidemia Arthritis in left foot--Meloxicam/Cortis one injections Denies [place],DM,CVA,renal disease Renal cancer with surgery in 06/2018 [...] [facility] by Dr. Corrales 06/2018 Uterine polyps Breast biopsy -2013--breast-left--LCIS Left ovary removed and appy Broken ankle/beau and screws right Cyst removed both breasts Tonsillectomy
== END 2025-05-29 09:16 | disposition home or self-care (01) ==
LOC: HO.HOSX 09:15
PROVIDERS: Visit Provider Orthopaedic Surgery
DX: M25.842 Other specified joint disorders, left hand (principal); M79.642 Pain in left hand
CPT/HCPCS: 73130; 99212

== ENCOUNTER 2025-05-29 09:17 | Outpatient (REF) | payer MEDICARE, OTHER, SELFPAY ==
[2025-05-29 10:52] LABS: MANUAL DIFF FLAG NO
[2025-05-29 11:03] LABS: Hematocrit 43.6 % (37.0-47.0); Hemoglobin 14.0 g/dl (12.0-16.0); Imm Gran Abs Auto 0.33 X10*3/uL (0.00-0.03); Imm Gran Pct Auto 1.8 % (0.0-0.4); Lymphocytes Absolute Auto 4.3 X10*3/uL (1.2-4.9); Mean Corpuscular HGB Conc 32.1 g/dl (31.0-35.0); Mean Corpuscular Hemoglobin 29.6 pg (27.0-33.0); Mean Corpuscular Volume 92.2 fL (80.0-98.0); NRBC Abs Auto 0.000 X10*3/uL (0.0-0.012); NRBC Pct Auto 0.0 /100WBC (0.0-0.2); Platelet Count 440 X10*3/uL (160-400); Red Blood Count 4.73 X10*6/uL (4.20-5.50); White Blood Count 18.3 X10*3/uL (4.8-10.8)
[2025-05-29 11:15] LABS: Alanine Aminotransferase 37 U/L (0-31); Albumin Level 4.1 g/dL (3.5-5.0); Alkaline Phosphatase 77 U/L (39-117); Anion Gap 13 (12-20); Aspartate Amino Transferase 28 U/L (5-31); Blood Urea Nitrogen 18 mg/dL (9-16); Calcium 10.0 mg/dL (8.4-10.2); Carbon Dioxide 28 mmol/L (22-29); Chloride 106 mmol/L (96-108); Estimated Glomerular Filt Rate 45; Potassium 4.1 mmol/L (3.3-5.1); Sodium 143 mmol/L (135-145); Total Protein 7.0 g/dL (6.5-8.0)
[2025-05-29 14:31] LABS: Appearance Urine Clear; Glucose Urine UA Negative (Negative); PH 5.5 (5.0-9.0); Specific Gravity - Urine 1.010 (1.005-1.025)
[2025-05-29 14:54] LABS: Total Protein Urine Random < 7 mg/dL (<12)
== END 2025-05-29 09:18 | disposition home or self-care (01) ==
LOC: HO.10HDL 09:17
PROVIDERS: Visit Provider Internal Medicine Hypertension Specialist
DX: N18.9 Chronic kidney disease, unspecified (principal); Z90.5 Acquired absence of kidney
CPT/HCPCS: 36415; 80053; 81003; 82570; 84156; 85025

== ENCOUNTER → 2025-05-30 10:11 | Outpatient (BNV) | payer MEDICARE, OTHER, SELFPAY | PROVIDERS: PCP Internal Medicine; Visit Provider Internal Medicine | DX: Z86.000 Personal history of in-situ neoplasm of breast (principal) | CPT/HCPCS: 77049 ==

== ENCOUNTER 2025-05-30 10:12 | Outpatient (REF) | payer MEDICARE, OTHER, SELFPAY ==
--- NOTE | ~2025-05-30 | MR_ITS ---
EXAMINATION: MR BREAST WITHOUT AND WITH CONTRAST, BILATERAL CLINICAL INFORMATION: 69 Year-old female high risk screening surveillance history of left breast LCIS status post excision. COMPARISON: Comparison is made with relevant prior imaging. Multiple prior MRIs dating back to 2019. TECHNIQUE: MR imaging of the breast was performed using T1, T2 and fat saturated techniques. Dynamic multiphase imaging was also performed after the administration of intravenous gadolinium contrast agent. Computer generated 3D reconstruction and enhancement kinetic analysis was ulitized by the radiologist in the interpretation of this examination. FINDINGS: Breast composition: Heterogeneous fibroglandular breast tissue Background parenchymal enhancement: Moderate background enhancement with bilateral scattered enhancing foci. LEFT BREAST: Postsurgical changes. 4 mm enhancing oval mass lower outer left breast 7 cm from the nipple series 1083 image 89/128 is probably benign background scattered enhancing foci. No other suspicious enhancing masses or areas of non mass enhancement. No axillary or internal mammary adenopathy. RIGHT BREAST: No suspicious enhancing masses or areas of non mass enhancement. No axillary or internal mammary adenopathy. Limited views of the chest and abdomen are unremarkable. MR/MR breast BI wo/w con IMPRESSION: Right: Negative. Left: 4-5 mm enhancing oval foci in the lower outer breast 7 cm from the nipple likely represents normal background enhancement. Recommend 6 month follow-up MRI for further evaluation of stability. ASSESSMENT: LEFT BREAST: BI-RADS 3-Probably Benign RIGHT BREAST: BI-RADS 1-Negative RECOMMENDATIONS: Yearly screening mammography 6 month follow-up breast MRI for further evaluation of stability enhancing foci lower outer left breast. Electronically signed by: Rachel Moss DO 05/31/2025 05:06 PM EDT
== END 2025-05-30 10:13 | disposition home or self-care (01) ==
LOC: HO.MRI 10:12
PROVIDERS: PCP Internal Medicine; Visit Provider Surgery
DX: Z86.000 Personal history of in-situ neoplasm of breast (principal); N63.23 Unspecified lump in the left breast, lower outer quadrant
CPT/HCPCS: 77049; A9585; C8937

== ENCOUNTER 2025-06-04 16:01 | Outpatient (AMB) | payer MEDICARE, OTHER, SELFPAY ==
--- OUTSIDE RECORDS SUMMARY | 2024-12-11 04:15 | XMS_ITS ---
Author Organization [facility] Address [address] [place] [address] Care Team Providers Care Ferry Boat Captain Name Role Phone Lennie, Kartik Primary Care Provider Black, Aye Unavailable [phone] Allergies Allergen (clinical drug ingredient) Drug/Non Drug [...] Negative Encounters Encounter Location Date Provider Diagnosis [facility] [place] [address] [place] [address] 12/11/2024 Aye Bliss Plan Of Treatment Next Appt Details Provider Name:Aye Bliss , 08/27/2025 08:15:00 AM, [address] [place], [address], Progress Notes * Ashvin HAHNOB: [birth year] (69 yo F)Acc No.[id number]:12/11/2024 Progress Note Patient: Rebekah POLO Provider: Alicja Bliss DPM :1955 A ge:69 Y S ex:Female Date:12/11/2024 Address:[address] [place] [address] Pcp:Jr Hogue Subjective: * Chief Complaints: * [...] denies.? C ardiovascular: Pacemaker d enies. 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 W PW d enies. C [...] eakness d enies. P odiatric: Comments S [facility] for comments. I nteg.: Marques d [...] 12/11/2024 Generated for Chandler bentley/Brennon/Nirav on: 0 06/04/2025 05:55 PM EDT
--- NOTE | 2025-06-04 16:03 | MHC.PC.OV ---
Vital Signs 06/04/25 16:05 Height 5 ft 3 in Weight 62.596 kg BMI 24.4 BP 124/96 H Blood Pressure Location Lt brachial Position Sitting Respiration 14 Pulse 80 Pulse Source Pulse Oximeter Temp 98.7 F Pulse Oximetry (%) 99 Oxygen Delivery Method Room Air Intake Visit Reasons: Same Day /Unwell Self Pay Representative Required: No Accompanied by: Self / Same As Patient Allergies fentanyl (FENTANYL) Allergy (Severe, Verified 06/04/25 16:10) SEVERE VOMITING, severe headache, vomiting sulfamethoxazole (From BACTRIM) Allergy (Severe, Verified 06/04/25 16:10) CANNOT TAKE-ONLY HAS ONE KIDNEY trimethoprim (From BACTRIM) Allergy (Severe, Verified 06/04/25 16:10) CANNOT TAKE-ONLY HAS ONE KIDNEY azithromycin (AZITHROMYCIN) Allergy (Intermediate, Verified 06/04/25 16:10) DIARRHEA Medication List - Last Reconciled 06/04/25 by KEANU Foote albuterol sulfate 90 mcg/actuation 2 puffs PO DAILY PRN alendronate 70 mg PO QWEEK amoxicillin-pot clavulanate 875-125 mg 1 tab PO BID atorvastatin (Lipitor) 20 mg PO DAILY calcium carbonate-vitamin D3 500 mg-3.125 mcg (125 unit) 1 tab PO DAILY fluticasone propionate 50 mcg/actuation 1 spray intranasal DAILY PRN empkjwncqbhy-vyxfihtn-jfbzkv 1 tab PO DAILY omeprazole magnesium (Prilosec OTC) 20 mg PO DAILY polyethylene glycol 3350 (Miralax) 17 grams PO DAILY prednisone 40 mg (2 x 20 mg) PO DAILY propranolol 10 mg PO DAILY psyllium husk (Metamucil) 0.4 grams PO DAILY tramadol 50 mg PO BID Tobacco use date assessed: 01/24/25 Dental Screening Dental Screen Date: 01/24/25 HPI HPI Comments History of Present Illness Details 69-year-old female with history of kidney cancer, breast cancer, migraines, hyperlipidemia, fibromyalgia, CKD, osteopenia presents to the office today for evaluation. She reports that she has had an upper respiratory infection ongoing for about 3.5 weeks. She was initially diagnosed with a sinus infection in the 1st week of May and was given prescriptions for prednisone azithromycin. She had still been feeling unwell and was given another course of prednisone and doxycycline. She still continues with pressure in the sinuses as well as a new productive cough with clear sputum production that started this week. She is also having headaches, sore neck, sore throat with painful swallowing, and fatigue. She has not had any fevers. Has had some wheezing but has not had her albuterol inhaler. No shortness a breath or chest pain. Doxycycline was completed 1 week ago. ROS: see hpi EXAM: Constitutional - Awake and Alert, No apparent distress Eyes - PERRL Mouth- mucosal membranes moist. Posterior oropharynx is erythematous without any tonsillar edema or exudates. 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 Prolapse of uterus Vaginal prolapse Incisional hernia 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 History of kidney cancer Chronic kidney disease Migraines Osteoarthritis Fibromyalgia Hypercholesteremia Surgical History History of bladder surgery History of colonoscopy (~08/12/17) History of hernia repair H/O hysterectomy for benign disease Hx of surgical procedure (~08/03/23) H/O vaginal hysterectomy History of incisional hernia repair (~11/29/19) History of nephrectomy, left (~06/2018) Status post biopsy of kidney (~04/2018) History of breast biopsy (~05/11/14) History of tonsillectomy and adenoidectomy S/P removal of left ovary (~1978) History of removal of cyst (~1972) History of ankle surgery (~2003) H/O kidney removal History of breast surgery Hx of tonsillectomy Family History Father Stomach cancer Prostate cancer High cholesterol Sister Stroke Mother High cholesterol CLL (chronic lymphocytic leukemia) Maternal Aunt Breast cancer Social History Household Members: Spouse Housing: House Alcohol intake: current Alcohol intake frequency: holidays/special occasions only Patient Tobacco Use Status: Never used Tobacco e-Cigarette/Vaping Use: Never Used Advance Directives Date on File: 07/25/20 service: No Current occupational status: 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 Amilcar Tyler, Lay Madison, Nicholas Hodge and colleagues, with an educational hung from [employer]. Physical exam (Primary Care) Vital Signs: Last Vital Signs Temp 98.7 F 06/04/25 16:05 Pulse 80 06/04/25 16:05 Resp 14 06/04/25 16:05 BP 124/96 H 06/04/25 16:05 Pulse Ox 99 06/04/25 16:05 Oxygen Delivery Method Room Air 06/04/25 16:05 BMI result Body Mass Index 24.4 Tobacco/Smoking Status: Tobacco use Status Tobacco use date assessed 01/24/25 06/04/25 16:15 Patient Tobacco Use Status Never used Tobacco 06/04/25 16:15 e-Cigarette/Vaping Use Never Used 06/04/25 16:15 Thrive Assessment: Date of Thrive Assessment Date Thrive assessed 01/24/25 06/04/25 16:15 Coding Level of Care Code Est Pt Level 4 (44692) Diagnoses Sinusitis J32.9 Bronchitis J40 Assessment & Plan Assessment & Plan (1) Sinusitis: Code(s): J32.9 - Chronic sinusitis, unspecified Category: Medical Plan: Trial course of Augmentin. Counseled on side effects. Recommend antihistamine as well as nasal sprays. Can also use nasal rinses such as Neti pot. Avoid decongestants. (2) Bronchitis: Code(s): J40 - Bronchitis, not specified as acute or chronic Category: Medical Plan: CXR ordered to evaluate for any pneumonia or other superimposed process. She is given refill for albuterol inhaler as well as another course of prednisone given diffuse wheezing. Consider referral to pulmonology should symptoms persist Plan Follow-up as scheduled Orders: Orders Complete Blood Count Auto Diff Today D72.829 - Elevated white blood cell count, unspecified XR chest 2V Today R05.8 - Other specified cough Medications: New prednisone 40 mg (2 x 20 mg) PO DAILY 10 tabs 0RF amoxicillin-pot clavulanate 875-125 mg 1 tab PO BID 20 tabs 0RF Changed From albuterol sulfate 90 mcg/actuation 2 puffs PO DAILY PRN Wheezing To albuterol sulfate 90 mcg/actuation 2 puffs PO Q4-6H PRN 8.5 grams 1RF shortness of breath or wheezing
[2025-06-04 16:05] VITALS: BP 124/96; PULSE 80; RESP 14; TEMP 37.1; O2SAT 99; BMI 24.4
--- OUTSIDE RECORDS SUMMARY | 2025-06-04 17:55 | XMS_ITS | Encounter Summary ---
Author Organization [facility] Address [address] [place] [address] Phone Care Team Providers Care Hop Grower Name Role Phone Regino Coleman MD Primary Care Provider Fallon Dillard MD Unavailable [phone] Jr Hogue MD Primary Care Provid er Encounter Details Date Type Department Care Team (Late st Contact Info) Description 06/16/2018 Procedure Pass [facility] Periop [address] [place] [address] Social History Tobacco Use Types Packs/Day Years [...] st Contact Info) Description 08/15/2024 Procedure Pass [address] [address] 08/06/2025 9:15 AM EDT Appointment [address] [address] Ayaan Corrales MD, [place] [address] [place] [address] [facility] [address] [place] [address] [email or web address] 08/06/2025 10:00 AM EDT Appointment [facility], X-Ray - [address] [address] Ayaan Corrales MD, [place] [address], [facility] [address] [place] [address] [email or web address] documented as of this encounter Visit Diagnoses Not on filedocumented in this encounter Care Teams Hop Grower Relationship Specialty Start Date End Date Regino Coleman MD [address] [place] [address] PCP - General Internal Medicine 04/29/18 04/04/25 Jr Hogue MD [address] [place] [address] PCP - General Internal Medicine 04/05/25 Fallon Dillard MD [address] [place] [address] [email or web address]promed[facility] flower hospitalDynam[facility] Referring Physician Hematology and Oncology 04/29/18 documented as of this encounter Additional Source Comments The information contained in this document represents components of the legal health record. It is not the complete legal health record.[facility]
--- OUTSIDE RECORDS SUMMARY | 2025-06-04 17:55 | XMS_ITS | Encounter Summary ---
Author Organization [facility] Address [address] [place] [address] Phone Care Team Providers Care Latin Teacher Name Role Phone Regino Coleman MD Primary Care Provider Fallon Dillard MD Unavailable [phone] Jr Hogue MD Primary Care Provid er Encounter Details Date Type Department Care Team (Late st Contact Info) Description 05/24/2018 Procedure Pass [facility] OUTSIDE IMG [address] [place] [address] Social History Tobacco Use Types Packs/Day Years Used Date Smoking Tobacco: Never Assessed Comments Unknown Sex and Gender Information Value Date Recorded Sex Assigned at Female 06/08/2018 12:14 PM EDT Legal Sex Female 11:57 AM EDT Gender Identity Female 06/08/2018 12:14 PM EDT Sexual Orientation Straight 06/08/2018 12 :14 PM EDT documented as of this encounter Plan of Treatment Upcoming Encounters Date Type Department Care Team (Late st Contact Info) Description 08/15/2024 Procedure Pass [address] [address] 08/06/2025 9:15 AM EDT Appointment [address] [address] Ayaan Corrales MD, [place] [address] [place] [address] [email or web address] 08/06/2025 10:00 AM EDT Appointment [facility], X-Ray - [address] [address] Ayaan Corrales MD, [place] 45 [facility], [facility] [address] [place] [address] [email or web address] documented as of this encounter Visit Diagnoses Not on filedocumented in this encounter Care Teams Latin Teacher Relationship Specialty Start Date End Date Regino Coleman MD [address] [place] [address] PCP - General Internal Medicine 04/29/18 04/04/25 Jr Hogue MD [address] [place] [address] PCP - General Internal Medicine 04/05/25 Fallon Dillard MD [address] [place] [address] [email or web address] Referring Physician Hematology and Oncology 04/29/18 documented as of this encounter Additional Source Comments The information contained in this document represents components of the legal health record. It is not the complete legal health record.[facility]
--- OUTSIDE RECORDS SUMMARY | 2025-06-04 17:55 | XMS_ITS | Encounter Summary ---
Author Organization [facility] Address [address] [place] [address] Phone Care Team Providers Care Rubber Goods Tester Name Role Phone Regino Coleman MD Primary Care Provider Fallon Dillard MD Unavailable [phone] Jr Hogue MD Primary Care Provid er Encounter Details Date Type Department Care Team (Late st Contact Info) Description 05/11/2022 Procedure Pass [address] [address] Social History Tobacco Use Types Packs/Day Years [...] st Contact Info) Description 08/15/2024 Procedure Pass [address] [address] 08/06/2025 9:15 AM EDT Appointment [address] [address] Ayaan Corrales MD, [place] [address], [facility] [address] [place] [address] [email or web address] 08/06/2025 10:00 AM EDT Appointment [facility], X-Ray - [facility] [address] [place] [address] Ayaan Corrales MD, [place] [address] [place], [facility] [address] [place] [address] [email or web address] documented as of this encounter Visit Diagnoses Not on filedocumented in this encounter Care Teams Rubber Goods Tester Relationship Specialty Start Date End Date Regino Coleman MD [address] [place] [address] PCP - General Internal Medicine 04/29/18 04/04/25 Jr Hogue MD [address] [place] [address] PCP - General Internal Medicine 04/05/25 Fallon Dillard MD [address] [place] [address] [email or web address] surgical [email or web address] Referring Physician Hematology and Oncology 04/29/18 documented as of this encounter Additional Source Comments The information contained in this document represents components of the legal health record. It is not the complete legal health record.[facility]
--- OUTSIDE RECORDS SUMMARY | 2025-06-04 17:55 | XMS_ITS | Encounter Summary ---
Author Organization [facility] Address [address] [place] [address] Phone Care Team Providers Care Guitar Repair Technician Name Role Phone Regino Coleman MD Primary Care Provider Fallon Dillard MD Unavailable [phone] Jr Hogue MD Primary Care Provid er Encounter Details Date Type Department Care Team (Late st Contact Info) Description 07/02/2020 Procedure Pass [address] [address] Social History Tobacco Use Types Packs/Day Years [...] st Contact Info) Description 08/15/2024 Procedure Pass [address] [address] 08/06/2025 9:15 AM EDT Appointment [address] [address] Ayaan Corrales MD, MS [address], [facility] [address] [place] [address] [email or web address] 08/06/2025 10:00 AM EDT Appointment [facility], X-Ray - [facility] [address] [place] [address] Ayaan Corrales MD, MS [address] [place], [facility] [address] [place] [address] [email or web address] documented as of this encounter Visit Diagnoses Not on filedocumented in this encounter Care Teams Guitar Repair Technician Relationship Specialty Start Date End Date Regino Coleman MD [address] [place] [address] PCP - General Internal Medicine 04/29/18 04/04/25 Jr Hogue MD [address] [place] [address] PCP - General Internal Medicine 04/05/25 Fallon Dillard MD [address] [place] [address] [email or web address] Referring Physician Hematology and Oncology 04/29/18 documented as of this encounter Additional Source Comments The information contained in this document represents components of the legal health record. It is not the complete legal health record.[facility]
--- OUTSIDE RECORDS SUMMARY | 2025-06-04 17:56 | XMS_ITS | Clinical Summary ---
Author Organization [facility] Address [address] [place] [address] Phone Care Team Providers Care Truss Assembler Name Role Phone Fallon Dillard MD Unavailable Jr Hogue MD Primary Care Provid er Allergies Active Allergy Reactions Criticality Noted Date Comments Fentanyl Headaches 05/24/2018 Medications propranolol (INDERAL) 10 MG immediate release tablet Take 10 mg by mouth daily. 8 Active fluticasone propionate (FLONASE) 50 mcg/actuation nasal spray 1 spray by Nasal route daily. Active albuterol 90 mcg/actuation inhaler Inhale 2 puffs into the lungs every 6 (six) hours as needed for wheezing. Active omeprazole (PRILOSEC) 10 MG capsule Take 10 mg by mouth daily. Active therapeutic multivitamin tablet Take 1 tablet by mouth daily. Active docusate sodium (COLACE) 100 MG capsule Take 1 capsule (100 mg total) by mouth 2 (two) times a day. 30 capsule 8 Active atorvastatin (LIPITOR) 20 MG tablet Take 20 mg by mouth daily. 4 Active alendronate (FOSAMAX) 70 MG tablet 70 mg. Active traMADoL (ULTRAM) 50 mg tablet Take 50 mg by mouth. 9 Active Active Problems Problem Noted Date Diagnosed Date H/O unilateral nephrectomy 04/06/2025 Overview (04/06/2025): 2018 Assessment & Plan (04/06/2025 12:34 PM EDT): Relative contraindication to regular use of oral NSAIDs Elevated sed rate 04/06/2025 Assessment & Plan (04/06/2025 12:33 PM EDT): Mildly elevated sed rate to 34 as of 01/24/2025, non-specific; will repeat for trend today Thrombocytosis 04/06/2025 Assessment & Plan (04/06/2025 12:39 PM EDT): Mild thrombocytosis to 500 as of 01/2025; repeat for trend with other routine labs today Osteoarthritis of carpometacarpal (CMC) joint of left thumb 04/06/2025 Assessment & Plan (04/06/2025 12:39 PM EDT): Significant symptomatic benefit from intra-articular steroid injections provided by hand surgeon every 4 months Stiffness of finger joint 04/05/2025 Overview (04/06/2025): Left first CMC OA; spontaneous ulnar subluxation of extensor tendons at bilateral third MCP joints, improving with conservative management Follows with hand surgeon Dr. Mary Boss in [place] Regular use of meloxicam previously effective, but avoids oral NSAIDs since 2018 nephrectomy Assessment & Plan (04/06/2025 12:37 PM EDT): No specific objective evidence to confirm underlying or comorbid rheumatoid arthritis despite bilateral ulnar subluxation of extensor tendons. 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 I agree that her finger joint exam does raise question of rheumatoid arthritis, and I have ordered baseline serologies and repeat inflammatory markers for completeness. Rheumatology follow-up deferred pending lab findings. Once daily colchicine is a potential alternative to oral NSAIDs if there is no clear indication for initiation of methotrexate or other DMARD. Personal history of kidney cancer 06/16/2018 Assessment & Plan (08/15/2024 8:39 AM EST): Assessment: Rebekah Hahn is a 68 y.o. female who is 6 years status post a left laparoscopic radical nephrectomy (06/16/18) for the management of pT3a N0 chromophobe renal cell carcinoma. She has no evidence of disease recurrence based on surveillance imaging (07/31/24). She has good performance status and normal renal function. Plan: 1. We spoke about the results of the surveillance imaging, which demonstrates no evidence of disease recurrence. 2. Return in 1 year with repeat surveillance imaging consisting of chest X-ray and MRI abdomen. She will also have her renal function assessed at that time with a basic metabolic panel. 3. Continue to see Gastroenterology regarding the incidentally detected pancreatic lesion. Assessment & Plan (07/01/2021 9:51 AM EDT): Assessment: Rebekah Hahn is a 64 y.o. female who is 3 years status post a left laparoscopic radical nephrectomy (06/16/18) for the management of pT3a N0 chromophobe renal cell carcinoma. She has no evidence of disease recurrence based on surveillance imaging (06/13/21). Her renal function is diminished but stable. Plan: 1. We spoke about the results of the surveillance imaging, which demonstrates no evidence of disease recurrence. 2. Return in 1 year with repeat surveillance imaging consisting of chest X-ray and MRI abdomen. While I would typically suggest switching to a US abdomen at this point, I think it is reasonable to continue with MRI abdomen given the finding of new incidental 5 mm renal cortical cysts on the right side, the probable hepatic hemangioma measuring 9 mm, and the possible sub-5 mm gallbladder polyp. She will also have her renal function assessed at that time with a basic metabolic panel. Assessment & Plan (07/02/2020 10:57 AM EDT): Assessment: Rebekah Hahn is a 64 y.o. female who is 2 years status post a left laparoscopic radical nephrectomy (06/16/18) for the management of pT3a N0 chromophobe renal cell carcinoma. She has no evidence of disease recurrence based on surveillance imaging (May 2020 and June 2020). Her renal function is diminished but stable. Plan: 1. We spoke about the results of the surveillance imaging, which demonstrates no evidence of disease recurrence. 2. Return in 1 year with repeat surveillance imaging consisting of chest X-ray and MRI abdomen. She will also have her renal function assessed at that time with a basic metabolic panel. Assessment & Plan (01/04/2020 2:35 PM EDT): Assessment: Rebekah Hahn is a 64 y.o. female who is 1.5 years status post a left laparoscopic radical nephrectomy (06/16/18) for the management of pT3a N0 chromophobe renal cell carcinoma. She has no evidence of disease recurrence based on surveillance imaging (12/28/19). Her renal function is diminished but stable. Plan: 1. We spoke about the results of the surveillance imaging, which demonstrates no evidence of disease recurrence. 2. Return in 6 months with repeat surveillance imaging consisting of chest X-ray and MRI abdomen. She will also have her renal function assessed at that time with a basic metabolic panel. After that time, she will shift to yearly evaluations. Assessment & Plan (06/15/2019 8:30 AM EDT): Assessment: Rebekah Hahn is a 63 y.o. female who is 1 year status post a left laparoscopic radical nephrectomy (06/16/18) for the management of pT3a N0 chromophobe renal cell carcinoma. She has no evidence of disease recurrence based on surveillance imaging (06/13/19). Her renal function is diminished but stable. Plan: 1. We spoke about the results of the surveillance imaging, which demonstrates no evidence of disease recurrence. 2. Return in 6 months with repeat surveillance imaging consisting of chest X-ray and MRI abdomen. She will also have her renal function assessed at that time with a basic metabolic panel. 3. We also spoke about the management of a possible incisional hernia at the extraction site in the left lower quadrant and I encouraged her to speak to a General Surgeon for further evaluation. She will monitor for signs including pain, an irreducible bulge, nausea, and vomiting. Assessment & Plan (04/27/2019 8:07 AM EDT): Assessment: Rebekah Hahn is a 63 y.o. female who is 10 months status post a left laparoscopic radical nephrectomy (06/16/18) for the management of pT3a N0 chromophobe renal cell carcinoma. She has no evidence of disease recurrence based on surveillance imaging (12/29/18). Her renal function is diminished but stable. Plan: 1. We spoke about the results of the surveillance imaging, which demonstrates no evidence of disease recurrence. We spoke about the use of adjuvant therapy or clinical trials; given the finding of the chromophobe variate of renal cell carcinoma, there are no currently recognized options at this time. 2. Return in 3 months with repeat surveillance imaging consisting of chest X-ray and MRI abdomen. She will also have her renal function assessed at that time with a basic metabolic panel. 3. We also spoke about the incidental finding of cholelithiasis, which is asymptomatic. If she develops right upper quadrant pain, she will set up a consultation with a General Surgeon. Assessment & Plan (01/05/2019 8:43 AM EDT): Assessment: Rebekah Hahn is a 62 y.o. female who is 6 months status post a left laparoscopic radical nephrectomy for the management of pT3a N0 chromophobe renal cell carcinoma. She has no evidence of disease recurrence based on surveillance imaging (12/29/18). Her renal function is diminished but stable. Plan: 1. We spoke about the results of the surveillance imaging, which demonstrates no evidence of disease recurrence. We spoke about the use of adjuvant therapy or clinical trials; given the finding of the chromophobe variate of renal cell carcinoma, there are no currently recognized options at this time. 2. Return in 3 months with repeat surveillance imaging consisting of chest X-ray and MRI abdomen. She will also have her renal function assessed at that time with a basic metabolic panel. 3. She will continue to follow up with her professional engineer to optimize renal function. Assessment & Plan (09/29/2018 11:28 AM EST): Assessment: Rebekah Hahn is a 62 y.o. female who is 3 months status post a left laparoscopic radical nephrectomy for the management of pT3a N0 chromophobe renal cell carcinoma. She has no evidence of disease recurrence based on surveillance imaging. Her renal function is diminished. Plan: 1. We spoke about the results of the surveillance imaging, which demonstrates no evidence of disease recurrence. We spoke about the use of adjuvant therapy or clinical trials; given the finding of the chromophobe variate of renal cell carcinoma, there are no currently recognized options at this time. 2. Return in 3 months with repeat surveillance imaging consisting of chest X-ray and MRI abdomen. She will also have her renal function assessed at that time with a basic metabolic panel. 3. She will continue to follow up with her professional engineer to optimize renal function. Assessment & Plan (06/30/2018 9:33 AM EDT): Assessment: Rebekah Hahn is a 62 y.o. female who is 2 weeks status post a left laparoscopic radical nephrectomy for the management of pT3aN0 chromophobe renal cell carcinoma. She is recovering well. Plan: 1. We spoke about pathology from the surgery. I explained that the presence of disease in the renal vein elevates this to a stage III renal cell carcinoma. Nevertheless, there is no indication for adjuvant therapy at this time. The recommendation is for close surveillance imaging of the chest and abdomen. I recommend that at 3 month intervals to begin with. 2. We talked about post-operative expections after surgery. I stated that fatigue, decrease appetite, and irregular bowel movements are exceedingly common and will likely resolve over the next few weeks. I encouraged avoiding strenuous activity for the next 4 weeks. 3. We discussed the issue of a small separation of the larger wound in her left lower quadrant. By report this is less than 1 cm in size. She was seen in her local emergency room at which time additional dressings were applied. I explained that the ocampo is to look for increasing redness, pain, and drainage which could be indicative of an underlying infection. She will monitor and let me know if things worsen. 4. Return to clinic in 3 months for surveillance imaging. Assessment & Plan (06/18/2018 7:58 AM EDT): Admit to urology N: Oxycodone, Tylenol, Dilaudid, did not resume Mobic CV: Resumed propranolol (w hold parameters) and simvastatin Pulm: - GI: Reg : Suarez till follow up (void trial) Heme: pboots, OOB, ZAHRA ID: [id number] [email or web address] Endo: stable Left renal mass 05/30/2018 Assessment & Plan (05/30/2018 4:12 AM EDT): Assessment: Rebekah Hahn is a 62 y.o. [...] initially though review of the pathology by [facility], Department [...] be scheduled on the next available date. Encounters Date Type Department Care Team Description 04/05/2025 4:02 PM EDT - 04/05/2025 11:59 PM EDT Hospital Encounter [facility] Laboratory [address] [place] [address] Celia Fraser MD, MPH Discharge Disposition: Home or Self Care 04/05/2025 2:40 PM EDT Office Visit [facility] Rhe[facility] [address] [place] [address] Celia Fraser MD, MPH Stiffness of finger joint, unspecified laterality (Primary Dx); Elevated sed rate; Thrombocytosis; H/O unilateral nephrectomy; Osteoarthritis of carpometacarpal (CMC) joint of left thumb, unspecified osteoarthritis type 04/03/2025 Telephone [facility] [address] [place] [address] [place] [address] Celia Fraser MD, MPH Appointment 03/06/2025 Transcribe Orders [facility] [address] [place] [address] [place] [address] Jr Hogue MD Osteoarthritis, unspecified osteoarthritis type, unspecified site (Primary Dx) from Last 3 Months Immunizations Immunization Administration Dates Next Due COVID-19 (Pre-08/02) Yesmywine Vaccine, [id number], P F 12/14/2020 COVID-19 (Pre-08/02) POPAPP Vaccine, mRNA, pat-sucrose, PF 08/06/2021 Family History Medical History Relation Comments Prostate cancer Father Stomach cancer Father Kidney Tumors Neg Hx Kidney cancer Neg Hx Relation Status Comments Father Social History Tobacco Use Types Packs/Day Years Used Date Smoking Tobacco: Never Smokeless Tobacco: Never Alcohol Use Standard Drinks/Week Comments No 0 (1 standard drink = 0.6 oz pur e alcohol) Education Answer Date Recorded Are you interested in more education? Not on alison e 02/05/2023 Are you concerned about learning? Not on file 02/05/2023 No 02/05/2023 No 02/05/2023 Digital Access Answer Date Recorded No 03/06/2023 No 03/06/2023 Reliable internet access at home? Not on file 03/06/2023 Device with a working camera? Not on file Comments No Sex and Gender Information Value Date Recorded Sex Assigned at Female 06/08/2018 12:14 PM EDT Legal Sex Female 11:57 AM EDT Gender Identity Female 06/08/2018 12:14 PM EDT Sexual Orientation Straight 06/08/2018 12 :14 PM EDT Last Filed Vital Signs Vital Sign Reading Time Taken Comments Blood Pressure 102/64 04/05/2025 2:38 PM EDT Pulse 75 04/05/2025 2:38 PM EDT Temperature 36.8 C (98.3 F) 06/18/2018 7:59 AM EDT Respiratory Rate 16 06/18/2018 7:59 AM EDT Oxygen Saturation 97% 04/05/2025 2:38 PM EDT Inhaled Oxygen Concentration - - Weight 62.1 kg (137 lb) 04/05/2025 2:38 PM EDT Height 160 cm (5' 3 ) 07/25/2024 1:33 PM EDT Body Mass Index 24.27 07/25/2024 1:33 PM EDT Plan of Treatment Upcoming Encounters Date Type Department Care Team (Late st Contact Info) Description 08/15/2024 Procedure Pass [address] [address] 08/06/2025 9:15 AM EDT Appointment [address] [address] Ayaan Corrales MD, [address] [address] [email or web address] 08/06/2025 10:00 AM EDT Appointment [address] [address] Ayaan Corrales MD, [address] [address] [email or web address] Health Maintenance Due Date Last Done Comments LIPID PANEL 1954 DEPRESSION SCREENING 1966 HEPATITIS C SCREENING 1972 MAMMOGRAM 1994 COLOGUARD 1999 COLONOSCOPY 1999 COLORECTAL CANCER SCREENING 1999 FIT TEST 1999 FOBT 1999 SIGMOIDOSCOPY 1999 VIRTUAL COLONOSCOPY 1999 ZOSTER VACCINES (1 of 2) 2004 OSTEOPOROSIS SCREENING INITIAL (ONE-TIME) 2019 Adult Td,Tdap Booster 05/01/2033 05/01/2023 RSV VACCINE Completed 09/27/2023 COVID-19 VACCINE Completed 03/09/2025, , 12/31/2023, Additional history exists PNEUMOCOCCAL VACCINES (50+ years) Completed 03/09/2025, 12/29/2019 SMOKING STATUS SCREENING (Once After 26 Yrs) Completed 04/05/2025 HEPATITIS A VACCINES Aged Out No long er eligible based on patient's age to complete this topic HIB VACCINES Aged Out No longer eligi ble based on patient's age to complete this topic MENINGOCOCCAL VACCINES (ACWY) Aged Out No longer eligible based on patient's age to complete this topic MENINGOCOCCAL VACCINES (B) Aged Out N o longer eligible based on patient's age to complete this topic Medical Devices Not on file Procedures Procedure Name Priority Date/Time Associated Diagnosis Comments CCP IGG ANTIBODIES Routine 04/05/2025 4: 03 PM EDT Stiffness of finger joint, unspecified laterality Elevated sed rate SEDIMENTATION RATE (ESR) Routine 04/05/2025 4:03 PM EDT Elevated sed rate CBC AND DIFFERENTIAL Routine 04/05/2025 4:03 PM EDT Elevated sed rate Thrombocytosis COMPREHENSIVE METABOLIC PANEL Routine 04/05/2025 4:03 PM EDT Stiffness of finger joint, unspecified laterality RHEUMATOID FACTOR Routine 04/05/2025 4:0 3 PM EDT Stiffness of finger joint, unspecified laterality Elevated sed rate C-REACTIVE PROTEIN Routine 04/05/2025 4: 03 PM EDT Elevated sed rate from Last 3 Months Results * (ABNORMAL) Comprehensive metabolic panel (04/05/2025 4:03 PM EDT) SODIUM 141 133 - 146 mmol/L [facility] POTASSIUM 4.4 3.3 - 5.1 mmol/L [facility] CHLORIDE 105 96 - 108 mmol/L [facility] CO2 28 21 - 35 mmol/L [facility] BUN 14 6 - 19 mg/dL [facility] CREATININE 1.10 0.5 - 1.5 mg/dL [facility] GLUCOSE 96 70 - 99 mg/dL [facility] ALBUMIN 4.2 3.9 - 4.8 g/dL [facility] TOTAL PROTEIN 7.3 6.5 - 8.0 g/dL [facility] CALCIUM 9.7 8.4 - 10.3 mg/dL [facility] ALKALINE PHOSPHATASE 84 39 - 117 U/L [facility] TOTAL BILIRUBIN 0.7 0.0 - 1.2 mg/dL [facility] AST 32 0 - 37 U/L [facility] ALT 17 0 - 40 U/L [facility] GLOBULIN 3.1 1 - 4.8 g/dL [facility] EGFR 54(L) >59 mL/min/1.7 3m2 [facility] Comment:Estimated glomerular filtration rate calculated using the CKD-EPI refit equation. ANION GAP 12 10 - 20 mmol/L [facility] Blood 04/05/2025 4:03 PM EDT 04/05/2025 4:04 PM EDT Celia Fraser MD, MPH LAB BLOOD ORDERABLES Fin al Result [facility] [address] [place] [address] * CCP IgG antibodies (04/05/2025 4:03 PM EDT) ANTI-CCP IGG <8 0 - 16 U/mL [facility] Blood 04/05/2025 4:03 PM EDT 04/05/2025 4:04 PM EDT Celia Fraser MD, MPH LAB BLOOD ORDERABLES Fin al Result [address] [address] * Sedimentation rate (ESR) (04/05/2025 4:03 PM EDT) ESR 8 0 - 30 mm/h [facility] Blood 04/05/2025 4:03 PM EDT 04/05/2025 4:04 PM EDT us Celia Fraser MD, MPH LAB BLOOD ORDERABLES Fin al Result [facility] [address] [place] [address] * (ABNORMAL) CBC and differential (04/05/2025 4:03 PM EDT) WBC 7.40 4.00 - 11.00 K/uL [facility] RBC 4.52 4.00 - 5.20 M/uL [facility] HGB 13.1 12.0 - 16.0 g/dL [facility] HCT 42.0 36.0 - 46.0 % [facility] PLT 435 150 - 450 K/uL [facility] MCV 92.9 80.0 - 100.0 fL [facility] MCH 29.0 27.0 - 31.0 pg [facility] MCHC 31.2(L) 32.0 - 36.0 g/dL [facility] RDW 13.2 11.5 - 14.5 % [facility] MPV 9.5 8.4 - 12.0 fL [facility] NRBC 0.00 0.00 /100 WBCs [facility] ABSOLUTE NRBC 0.00 0.00 K/uL [facility] DIFF METHOD Auto [facility] NEUTS 53.0 48.0 - 76.0 % [facility] LYMPHS 35.9 18.0 - 41.0 % [facility] MONOS 8.8 4.0 - 11.0 % [facility] EOS 1.5 0.0 - 5.0 % [facility] BASOS 0.7 0.0 - 1.5 % [facility] Granulocytes, immature (%) 0.1 0.0 - 0.9 % [facility] ABSOLUTE NEUTS 3.92 1.92 - 7.60 K/uL [facility] ABSOLUTE LYMPHS 2.66 0.72 - 4.10 K/uL [facility] ABSOLUTE MONOS 0.65 0.16 - 1.10 K/uL [facility] ABSOLUTE EOS 0.11 0.00 - 0.50 K/uL [facility] ABSOLUTE BASOS 0.05 0.00 - 0.15 K/uL [facility] Granulocytes, immature 0.01 0.00 - 0.09 K/uL [facility] Blood 04/05/2025 4:03 PM EDT 04/05/2025 4:04 PM EDT Celia Fraser MD, MPH LAB BLOOD ORDERABLES Fin al Result [address] [address] * Rheumatoid factor (04/05/2025 4:03 PM EDT) RHEUMATOID FACTOR <10.0 0.0 - 14.0 IU/ml [facility] Blood 04/05/2025 4:03 PM EDT 04/05/2025 4:04 PM EDT Celia Fraser MD, MPH LAB BLOOD ORDERABLES Fin al Result Performing Organization Address [facility] Co de Phone Number [address] [address] * C-Reactive Protein (04/05/2025 4:03 PM EDT) C REACTIVE PROTEIN <3.0 0.0 - 4.0 mg/L [facility] Blood 04/05/2025 4:03 PM EDT 04/05/2025 4:04 PM EDT Celia Fraser MD, MPH LAB BLOOD ORDERABLES Fin al Result Performing Organization Address [facility] Co de Phone Number [address] [address] from Last 3 Months Insurance MEDICARE PART A & B [employer] EXTENSION MEDICARE SUPPLEMENT MEDICARE PART A & B [employer] [facility] EXTENSION MEDICARE SUPPLEMENT MEDICARE PART A & B [employer] MEDICARE SUPPLEMENT Member Subscriber Plan / Payer ( fective 2019-) Name:Rebekah Hahn Member ID:[id number] Relation to Subscriber:Self Name:Selma Rebekah Stephen Subscriber ID:[id number] Payer ID:[id number] Group ID:Not on file Type:Medicare Address: [employer] [address] [employer] EXTENSION MEDICARE SUPPLEMENT MEDICARE PART A & B [facility] EXTENSION MEDICARE SUPPLEMENT MEDICARE PART A & B [employer] MEDICARE [place] [address] MEDICARE PART A & B Member Subscriber Plan / Payer (Ef fective 2019-Present) Name:Selma Rebekah E Member ID:[id number] Relation to Subscriber:Self Name:Rebekah Hahn Subscriber ID:[id number] Payer ID:[id number] Group ID:Not on file Type:Medicare Address: [employer] [address] EXTENSION MEDICARE SUPPLEMENT MEDICARE PART A & B [employer] MEDICARE SUPPLEMENT MEDICARE PART A & B [employer] MEDICARE SUPPLEMENT RICKY ORTIZ [phone] Advance Directives For more information, please contact: [phone] (9AM - 5PM [facility], Wednesday-Wednesday) Documents on File Type Date Recorded Patient Logistics Lead Expl anation Healthcare Proxy 06/09/2018 10:59 AM 09-19 * Full Code (Presumed) (Latest Code Status on File) Date Activated Date Inactivated Comments 06/16/2018 1:39 PM 06/18/2018 3:12 PM Healthcare Agents on File Name Relationship Healthcare Agent Relationship Communication Orlin Hahn Spouse .Primary Health Care Agent (Proxy form on file) Care Teams Truss Assembler Relationship Specialty Start Date End Date Jr Hogue MD [address] [place] [id number] PCP - General Internal Medicine 04/05/25 Fallon Dillard MD [address] [place] [address] [email or web address] Referring Physician Hematology and Oncology 04/29/18 Additional Source Comments The information contained in this document represents components of the legal health record. It is not the complete legal health record.[facility]
--- OUTSIDE RECORDS SUMMARY | 2025-06-04 17:56 | XMS_ITS | Encounter Summary ---
Author Organization [facility] Address [address] [place] [address] Phone Care Team Providers Care Shaper And Presser Name Role Phone Regino Coleamn MD Primary Care Provider [phone] Encounter Details Date Type Department Care Team (Late st Contact Info) Description 01/06/2023 Telephone [facility] [address] [place] [address] Ying Medrano Social History Tobacco [...] [facility] and [place] [facility] and they will call and book sooner appt. Pt stated that she is going to see her executive coach in 2 weeks and her MD stated she will do th US in office. Pls advise if you would like her executive coach to do US or move forward with the hospital. Her executive coach does not have a radiology department. * Telephone Encounter - Ying Medrano - 01/06/2023 9:51 AM EDT PT says she has renal ultrasound scheduled for 03/01/23. PT wants to be seen sooner, she is asking for an earlier appointment and is willing to commute to [place] if she can get a sooner appointment. documented in this encounter Plan of Treatment Not on file documented as of this encounter Visit Diagnoses Not on filedocumented in this encounter Care Teams Shaper And Presser Relationship Specialty Start Date End Date Regino Coleman MD [address] [place] [address] DR[address] [place] PCP - General 10/21/20 documented as of this encounter
--- OUTSIDE RECORDS SUMMARY | 2025-06-04 17:56 | XMS_ITS | Encounter Summary ---
Author Organization [facility] Address [address] [place] [address] Phone Care Team Providers Care Casino Duty Manager Name Role Phone Regino Coleman MD Primary Care Provider [phone] Encounter Details Date Type Department Care Team (Late st Contact Info) Description 11/25/2022 Telephone [facility] [address] [place] [address] Ying Medrano Social History Tobacco [...] called to relay that Dr. Reyes from [facility] had recently put a stent in [...] on filedocumented in this encounter Care Teams Casino Duty Manager Relationship Specialty Start Date End Date Regino Coleman MD [address] [place] PCP - General 10/21/20 documented as of this encounter
--- OUTSIDE RECORDS SUMMARY | 2025-06-04 17:56 | XMS_ITS | Encounter Summary ---
Author Organization [facility] Address [address] [place] [address] Phone Care Team Providers Care Digital Sales Representative Name Role Phone Regino Coleman MD Primary Care Provider Fallon Dillard MD Unavailable [phone] Jr Hogue MD Primary Care Provid er Encounter Details Date Type Department Care Team (Late st Contact Info) Description 06/15/2019 Procedure Pass [facility] MR Imaging, Black [address] [place] [address] Social History Tobacco Use Types Packs/Day Years [...] st Contact Info) Description 08/15/2024 Procedure Pass [address] [address] 08/06/2025 9:15 AM EDT Appointment [address] [address] Ayaan Corrales MD, MS 45 Regin[address] [place], ASB [address] [place] [address] [email or web address] 08/06/2025 10:00 AM EDT Appointment [facility], X-Ray - [facility] [address] [place] [address] Ayaan Corrales MD, MS 45 Regino Oliveira, [facility] [address] [place] [address] [email or web address] documented as of this encounter Visit Diagnoses Not on filedocumented in this encounter Care Teams Digital Sales Representative Relationship Specialty Start Date End Date Regino Coleman MD [address] [place] [address] PCP - General Internal Medicine 04/29/18 04/04/25 Jr Hogue MD [address] [place] [address] PCP - General Internal Medicine 04/05/25 Fallon Dillard MD [address] [place] [address] [email or web address] [facility] Referring Physician Hematology and Oncology 04/29/18 documented as of this encounter Additional Source Comments The information contained in this document represents components of the legal health record. It is not the complete legal health record.[facility]
--- OUTSIDE RECORDS SUMMARY | 2025-06-04 17:56 | XMS_ITS | Patient Health Record ---
Author Organization [facility] Address [address] [place] [address] Care Team Providers Care Administrative Staff Supervisor Name Role Phone DESHAUN OROURKE Primary Care Provider Amilcar Santiago Unavailable [phone] Allergies No Known Allergies Results Component Value Reference Range Notes Calprotectin, Fecal Reviewed date:07/21/2024 12:26:40 PM Interpretation: Performing Lab:[facility], [address] [place] [phone] Notes/Report: Calprotectin, Fecal 10 Reference Range: <50 [...] borderline values. THIS TEST WAS PERFORMED AT: [facility] [facility] [address] [place] [address] RAFFY WITT MD,PHD,CHITRA GI PANEL Reviewed date:07/08/2024 08:13:38 PM Interpretation: Performing Lab:[facility], [address] [place] [phone] Notes/Report: Campylobacter Not Detected Not Detect. Plesiomonas [...] is performed by Multiplexed PCR, utilizing the [employer] Array. Complete Blood Count Auto Di ff Reviewed date:07/06/2024 12:32:00 PM Interpretation: Performing Lab:[facility], [address] [place] [address], [place] [address] Notes/Report: White Blood Count 7.2 4.8-10.8 X10*3/uL [...] te Reviewed date:07/06/2024 04:52:01 PM Interpretation: Performing Lab:[address] [address] Notes/Report: Erythrocyte Sedimentation Rate 8 0-20 MM/HR Patients with polycythemia and many hemoglobin abnormalities may have depressed sed rates whereas patients with anemia may have elevated sed rates. C Reactive Protein Reviewed date:07/06/2024 04:51:54 PM Interpretation: Performing Lab:[address] [address] Notes/Report: C Reactive Protein < 0.10 < or = 0.50 mg/dL Leukocytes Stool Qualitative Reviewed date:07/08/2024 08:12:59 PM Interpretation: Performing Lab:[address] [address] Notes/Report: Leukocytes Stool Qualitative NEGATIVE NEGATIVE CDiff Gene PCR Reviewed date:07/08/2024 08:12:52 PM Interpretation: Performing Lab:[facility], [address] [place] [phone] Notes/Report: CDiff Gene PCR NEGATIVE Negative If C. difficile strongly suspected despite one negative test, a second test may be sent vs. empiric treatment for C. difficile infection. Complete Blood Count Auto Di ff Reviewed date:08/01/2024 12:13:53 PM Interpretation: Performing Lab:[facility], [address] [place] [phone] Notes/Report: White Blood Count 7.1 4.8-10.8 X10*3/uL [...] Status Risk Notes Problem Irritable bowel syndrome (25090457) Irritable bowel syndrome (K58.9) Active confirmed Problem 985518786 Encounter for screening for malignant neoplasm of colon (Z12.11) Active confirmed Problem Diarrhea (23954254) Diarrhea (R19.7) Active con firmed Problem Change in bowel habit (19723963) Change in bowel habits (R19.4) Active confirmed Problem Screening for malignant neoplasm of rectum (939633376) Encounter for screening for malignant neoplasm of rectum (Z12.12) Active confirmed Problem 56991770 Blood in stool (K92.1) Active confirmed Problem 126184844 Gastroesophageal reflux disease without esophagitis (K21.9) Active confirmed Problem 038856472 Gastroesophageal reflux disease, esophagitis presence not specified (K21.9) Active confirmed Problem Pancreatic cyst (26215431) 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) Active confirmed Problem 63038370 Constipation, unspecified constipation type (K59.00) Active confirmed Problem 682645179 Abdominal pain, left lower quadrant (R10.32) Active confirmed Problem Gastroesophageal reflux disease (722047761) GERD (gastroesophageal reflux disease) (K21.9) Active confirmed Problem Irritable bowel syndrome characterized by constipation (372450424) Irritable bowel syndrome with constipation (K58.1) Active confirmed Problem Irritable bowel syndrome (80774588) Irritable bowel syndrome with both constipation and diarrhea (K58.2) Active confirmed Problem Thrombocytosis (disorder) (8948612) Thrombocytosis, unspecified (D75.839) Active confirmed Problem Neoplasm of digestive system (198406134) IPMN (intraductal papillary mucinous neoplasm) (D49.0) Active confirmed Vital Signs Blood pressure diastolic 77 mm Hg 04/03/2025 Height 64 in 04/03/2025 Blood pressure systolic 111 mm Hg 04/03/2025 Weight 136 lbs 04/03/2025 BMI 23.34 kg/m2 04/03/2025 Procedures Procedure Date Ordered Date Performed Result Body Sit e UPPER GI ENDOSCOPY 04/03/2025 N/A COLONOSCOPY 04/03/2025 N/A Encounters Encounter Location Date Provider Diagnosis [facility] [address] [place] [address] 09/28/2024 Amilcar Sosa Gastroesophageal ref lux disease, esophagitis presence not specified K21.9 ; Irritable bowel syndrome with constipation K58.1 ; Encounter for screening for malignant neoplasm of colon Z12.11 ; Constipation, unspecified constipation type K59.00 and Pancreatic cyst K86.[address] [place] [address] [place] [address] 04/03/2025 Amilcar Sosa Change in bowel habi ts R19.4 ; Irritable bowel syndrome with both constipation and diarrhea K58.2 ; GERD (gastroesophageal reflux disease) K21.9 and IPMN (intraductal papillary mucinous neoplasm) D49.0 [facility] [address] [place] [address] 06/28/2024 Amilcar Sosa [facility] [address] [place] [address] 07/05/2024 Amilcar Sosa Diarrhea R19.7 [facility] [address] [place] [address] 07/10/2024 Amilcar Sosa Diarrhea R19.7 and Thrombocytosis, unspecified D75.839 [facility] [address] [place] [address] 07/20/2024 Amilcar Sosa [facility] [address] [place] [address] 09/28/2024 Amilcar Sosa Assessments Encounter Date Diagnosis [...] will be having it done up at [facility] as it is ordered by her [place] physicians in regard to the follow-up of [...] will be having it done up at [facility] as it is ordered by her [place] physicians in regard to the follow-up of [...] will be having it done up at [facility] as it is ordered by her [place] physicians in regard to the follow-up of [...] will be having it done up at [facility] as it is ordered by her [place] physicians in regard to the follow-up of [...] (ICD-10 - K86.2) Need MRI report from [facility] from 06/2024 Overall, Cordell appears well. [...] Name:Amilcar Quintero Sheila , 07/04/2025 10:20:00 AM, [address] [place] [address] , [place], [place], [id number], Provider Name:Amilcar Quintero Sheila , 09/27/2025 09:00:00 AM, [address] [place] [address], [address], [place], [address], Insurance Providers Payer Name Payer Address Payer Phone Subscriber Number Group Number Insured Name Patient Relationship to Insured Coverage Start Date Coverage End Date MEDICARE OF [place] [address] [place]UR[place] URB[place] [address] [id number] LENA Wright CORDELL Self - patient is the insured [facility] [address] [place] [address] [id number] CORDELL ORDAZ Self - patient is the insured Medical (General) History Medical History History ICD Code Screening colonoscopy 05-24-2009--negativ e EGD 01-05-2002 and in 11/2016--small HH, n o esophagitis, no Hernandes's Asthma--presently asymptomatic 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 Dillrad Mitral valve prolapse Lyme's disease/Fibromyalgia--Amitryptile ne and Gabapentin Migraines-on Propranolol Hyperlipidemia Arthritis in left foot--Meloxicam/Cortis one injections Denies AR,DM,CVA,renal disease Renal cancer with surgery in 06/2018 [...] 11/18/2022 [facility] Corrales 06/2018 Uterine polyps Breast biopsy -2013--breast-left--LCIS Left ovary removed and appy Broken ankle/beau and screws right Cyst removed both breasts Tonsillectomy
--- OUTSIDE RECORDS SUMMARY | 2025-06-04 17:56 | XMS_ITS | Encounter Summary ---
Author Organization [facility] Address [address] [place] [address] Phone Care Team Providers Care Tieing Machine Operator Name Role Phone Regino Coleman MD Primary Care Provider Fallon Dillard MD Unavailable [phone] Jr Hogue MD Primary Care Provid er Encounter Details Date Type Department Care Team (Late st Contact Info) Description 06/10/2021 Ancillary Orders [facility],Outside [address] [address] System, Provider Not In, [place] [address] Social History Tobacco Use Types Packs/Day Years [...] st Contact Info) Description 08/15/2024 Procedure Pass [address] [address] 08/06/2025 9:15 AM EDT Appointment [address] [place] [address] Ayaan Corrales MD, MS 45 Regino [place], [facility] [address] [place] [address] [email or web address] 08/06/2025 10:00 AM EDT Appointment [facility], X-Ray - [address] [address] Ayaan Corrales MD, MS 45 Regino [place], [facility] [address] [place] [address] [email or web address] documented as of this encounter Results * CT Abdomen/Pelvis Outside (No Interpretation) (02/07/2021 12:00 AM EDT) Narrative SYSTEMGENERATED, DOCUMENTATION - 06/10/2021 7:17 AM EDT This study is for PACS storage only and not for interpretation. us Provider Not In System PhD IMG OUTSIDE IMAGING W /OUT INTERPRETATION Final Result documented in this encounter Visit Diagnoses Not on filedocumented in this encounter Care Teams Tieing Machine Operator Relationship Specialty Start Date End Date Regino Coleman MD [address] [place] [address] PCP - General Internal Medicine 04/29/18 04/04/25 Jr Hogue MD [address] [place] [address] PCP - General Internal Medicine 04/05/25 Fallon Dillard MD [address] [place] [address] [email or web address] Referring Physician Hematology and Oncology 04/29/18 documented as of this encounter Additional Source Comments The information contained in this document represents components of the legal health record. It is not the complete legal health record.[facility]
--- OUTSIDE RECORDS SUMMARY | 2025-06-04 17:56 | XMS_ITS | Encounter Summary ---
Author Organization [facility] Address [address] [place] [address] Phone Care Team Providers Care Regulatory Submissions Associate Name Role Phone Regino Coleman MD Primary Care Provider Fallon Dillard MD Unavailable [phone] Jr Hogue MD Primary Care Provid er Encounter Details Date Type Department Care Team (Late st Contact Info) Description 06/10/2021 Ancillary Orders [facility],Outside [address] [address] System, Provider Not In, [place] [address] Social History Tobacco Use Types Packs/Day Years [...] st Contact Info) Description 08/15/2024 Procedure Pass [address] [address] 08/06/2025 9:15 AM EDT Appointment [address] [place] [address] Ayaan Corrales MD, MS 45 Regino [place], [facility] [address] [place] [address] [email or web address] 08/06/2025 10:00 AM EDT Appointment [facility], X-Ray - [address] [address] Ayaan Corrales MD, MS 45 Regino [place], [facility] [address] [place] [address] [email or web address] documented as of this encounter Results * MRI Abdomen Outside (No Interpretation) (06/19/2020 12:00 AM EDT) Narrative SYSTEMGENERATED, DOCUMENTATION - 06/10/2021 7:19 AM EDT This study is for PACS storage only and not for interpretation. us Provider Not In System PhD IMG OUTSIDE IMAGING W /OUT INTERPRETATION Final Result documented in this encounter Visit Diagnoses Not on filedocumented in this encounter Care Teams Regulatory Submissions Associate Relationship Specialty Start Date End Date Regino Coleman MD [address] [place] [address] PCP - General Internal Medicine 04/29/18 04/04/25 Jr Hogue MD [address] [place] [address] PCP - General Internal Medicine 04/05/25 Fallon Dillard MD [address] [place] [address] [email or web address] Referring Physician Hematology and Oncology 04/29/18 documented as of this encounter Additional Source Comments The information contained in this document represents components of the legal health record. It is not the complete legal health record.[facility]
--- OUTSIDE RECORDS SUMMARY | 2025-06-04 17:56 | XMS_ITS | Encounter Summary ---
Author Organization [facility] Address [address] [place] [address] Phone Care Team Providers Care Glue Jointer Operator Name Role Phone Regino Coleman MD Primary Care Provider Fallon Dillard MD Unavailable [phone] Jr Hogue MD Primary Care Provid er Encounter Details Date Type Department Care Team (Late st Contact Info) Description 04/27/[address] [facility] MR Imaging, Black [address] [place] [address] Social History Tobacco Use Types Packs/Day Years [...] st Contact Info) Description 08/15/2024 Procedure Pass [address] [address] 08/06/2025 9:15 AM EDT Appointment [address] [address] Ayaan Corrales MD, MS 45 Regino [place], [facility] [address] [place] [address] [email or web address] 08/06/2025 10:00 AM EDT Appointment [facility], X-Ray - [facility] [address] [place] [address] Ayaan Corrales MD, MS 45 Regino Oliveiar, [facility] [address] [place] [address] [email or web address] documented as of this encounter Visit Diagnoses Not on filedocumented in this encounter Care Teams Glue Jointer Operator Relationship Specialty Start Date End Date Regino Coleman MD [address] [place] [address] PCP - General Internal Medicine 04/29/18 04/04/25 Jr Hogue MD [address] [place] [address] PCP - General Internal Medicine 04/05/25 Fallon Dillard MD [address] [place] [address] [email or web address]. mary's medical center, iront[facility] campusZapcoder Referring Physician Hematology and Oncology 04/29/18 documented as of this encounter Additional Source Comments The information contained in this document represents components of the legal health record. It is not the complete legal health record.[facility]
--- OUTSIDE RECORDS SUMMARY | 2025-06-04 17:56 | XMS_ITS | Encounter Summary ---
Author Organization [facility] Address [address] [place] [address] Phone Care Team Providers Care Operations Accountant Name Role Phone Regino Coleman MD Primary Care Provider Fallon Dillard MD Unavailable [phone] Jr Hogue MD Primary Care Provid er Encounter Details Date Type Department Care Team (Late st Contact Info) Description 06/10/2021 Ancillary Orders [facility],Outside [address] [address] System, Provider Not In, [place] [address] Social History Tobacco Use Types Packs/Day Years [...] st Contact Info) Description 08/15/2024 Procedure Pass [address] [address] 08/06/2025 9:15 AM EDT Appointment [address] [place] [address] Ayaan Corrales MD, MS 45 Regino [place], [facility] [address] [place] [address] [email or web address] 08/06/2025 10:00 AM EDT Appointment [facility], X-Ray - [address] [address] Ayaan Corrales MD, MS 45 Regino [place], [facility] [address] [place] [address] [email or web address] documented as of this encounter Results * XR Chest Outside (No Interpretation) (05/23/2020 12:00 AM EDT) Narrative SYSTEMGENERATED, DOCUMENTATION - 06/10/2021 7:18 AM EDT This study is for PACS storage only and not for interpretation. us Provider Not In System PhD IMG OUTSIDE IMAGING W /OUT INTERPRETATION Final Result documented in this encounter Visit Diagnoses Not on filedocumented in this encounter Care Teams Operations Accountant Relationship Specialty Start Date End Date Regino Coleman MD [address] [place] [address] PCP - General Internal Medicine 04/29/18 04/04/25 Jr Hogue MD [address] [place] [address] PCP - General Internal Medicine 04/05/25 Fallon Dillard MD [address] [place] [address] [email or web address] Referring Physician Hematology and Oncology 04/29/18 documented as of this encounter Additional Source Comments The information contained in this document represents components of the legal health record. It is not the complete legal health record.[facility]
--- OUTSIDE RECORDS SUMMARY | 2025-06-04 17:56 | XMS_ITS | Encounter Summary ---
Author Organization [facility] Address [address] [place] [address] Phone Care Team Providers Care Line Inspector Name Role Phone Regino Coleman MD Primary Care Provider Fallon Dillard MD Unavailable [phone] Jr Hogue MD Primary Care Provid er Encounter Details Date Type Department Care Team (Late st Contact Info) Description 01/05/2019 Procedure Pass [facility] MR Imaging, Black [address] [place] [address] Social History Tobacco Use Types Packs/Day Years [...] st Contact Info) Description 08/15/2024 Procedure Pass [address] [address] 08/06/2025 9:15 AM EDT Appointment [address] [address] Ayaan Corrales MD, MS 45 Regino [place], [facility] [address] [place] [address] [email or web address] 08/06/2025 10:00 AM EDT Appointment [facility], X-Ray - [facility] [address] [place] [address] Ayaan Corrales MD, MS 45 Regino Oliveira, [facility] [address] [place] [address] [email or web address] documented as of this encounter Visit Diagnoses Not on filedocumented in this encounter Care Teams Line Inspector Relationship Specialty Start Date End Date Regino Coleman MD [address] [place] [address] PCP - General Internal Medicine 04/29/18 04/04/25 Jr Hogue MD [address] [place] [address] PCP - General Internal Medicine 04/05/25 Fallon Dillard MD [address] [place] [address] [email or web address] [facility] Health[facility] jewish hospitalDiscover Books, LLC Referring Physician Hematology and Oncology 04/29/18 documented as of this encounter Additional Source Comments The information contained in this document represents components of the legal health record. It is not the complete legal health record.[facility]
--- OUTSIDE RECORDS SUMMARY | 2025-06-04 17:57 | XMS_ITS | Patient Health Record ---
[facility] Address [address] [place] [address] Care Team Providers Care Combat Systems Officer Name Role Phone Jr Hogue Primary Care Provider Black, Aye Unavailable [phone] Allergies Allergen (clinical drug ingredient) Drug/Non Drug [...] Duration) Notes Start Date End Date Status Flonase 50 MCG/ACT 1 spray in each nostril Nasally Once a day; Duration: 30 day(s) Active Meloxicam 15 MG 1 tablet Orally Once a day; Duration: 30 Not-Taking Inderal XL Active Ammonium Lactate 12 % 1 application Externally Twice a day; Duration: 30 days Not-Taking Atorvastatin Calcium 20 MG 1 tablet Orally Once a day Active Topiramate once a day Not-Taki ng Medrol nj 4mg as directed orally as directed; Duration: 6 days 02/12/2025 Active Lyrica 100 MG 1 capsule Orally Twice a day Not-Taking Simvastatin 20 MG 1 tablet in the evening Orally Once a day; Duration: 30 day(s) Not-Taking Calcium Active Naproxen 500 MG 1 tablet as needed Orally every 12 hrs Not-Taking Centrum Active Amitriptyline HCl No t-Taking Alendronate Sodium 70 MG 1 tablet 30 minutes before the first food, beverage or medicine of the day with plain water Orally Active Gabapentin Not-Takin g Vitamin D3 Active Letrozole 2.5 MG Orally Not -Taking Tamoxifen Citrate No t-Taking traMADol HCl 2x a day prn Acti ve Fluoxetine Not-Takin g Immunizations Vaccine Route Administration Date Status Comme nts COVID-19 Quintin & Quintin/Precious Unknown 07/31/2021 Administered First Dose: 12/14/2020 Influenza Unknown 06/11/2024 Administered Social History Tobacco Use: Social History Observation [...] Problem Status W/U Status Risk Notes Problem Primary osteoarthritis , left ankle and foot (M19.072) Active confirmed Vital Signs Blood pressure diastolic 75 mm Hg 05/24/2025 Height 5ft3in in 05/24/2025 Blood pressure systolic 121 mm Hg 05/24/2025 Weight 136 lbs 05/24/2025 BMI 24.09 kg/m2 05/24/2025 Procedures Procedure Date Ordered Date Performed Result Body Sit e , X9498-DXAIW/INJECT, JOINT/BURSA 08/17/2024 N/A , N4473-ZSQHP/INJECT, JOINT/BURSA 05/24/2025 N/A Encounters Encounter Location Date Provider Diagnosis [facility] [address] [address] 08/17/2024 Aye Black Primary osteoarthrit is, left ankle and foot M19.072 ; Joint pain M25.50 ; Neuralgia and neuritis, unspecified M79.2 ; Hypertrophy of bone, 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 and Pain in left foot M79.672 [facility] [address] [address] 02/12/2025 Aye Bliss Primary osteoarthrit is, left [...] Other hammer toe(s) (acquired), right foot M20.[address] [address] 05/24/2025 Aye Bliss Primary osteoarthrit is, left ankle and foot M19.072 ; Joint pain M25.50 ; Neuralgia and neuritis, unspecified M79.2 and Hypertrophy of bone, 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 [address] 06/30/2024 [facility] [address] [facility] [address] [place] [address] 12/11/[address] [address] 02/12/2025 Aye Bliss Assessments Encounter Date Diagnosis (ICD Code) Assessment Notes Treatment Notes Treatment Clinical Notes Section Notes 08/17/2024 Primary osteoarthrit is, left ankle and foot (ICD-10 - M19.072) 02/12/2025 Primary osteoarthrit is, left ankle and foot (ICD-10 - M19.072) 02/12/2025 Joint pain (ICD-10 - M25.50) 05/24/2025 Primary osteoarthrit is, left ankle and foot (ICD-10 - M19.072) 05/24/2025 Joint pain (ICD-10 - M25.50) 05/24/2025 Neuralgia and neurit is, unspecified (ICD-10 - M79.2) 02/12/2025 Neuralgia and neurit is, unspecified (ICD-10 - M79.2) 08/17/2024 Neuralgia and neurit is, unspecified (ICD-10 - M79.2) 08/17/2024 Joint pain (ICD-10 - M25.50) 08/17/2024 Hypertrophy of bone, left ankle and foot (ICD-10 - M89.372) 02/12/2025 Hypertrophy of bone, left ankle and foot (ICD-10 - M89.372) 05/24/2025 Hypertrophy of bone, left ankle and foot [...] X ray : Foot, right 3V 04/24/2013 09196-Ohem Destruction, 1-14 02/08/2023 27233-Qkqs Destruction, 1-14 12/08/2021 15615, I6398-OKDAZ/INJECT, JOINT/BURSA 0 04/06/2022 01095, H4032-PGWQR/INJECT, JOINT/BURSA 1 82259, A9062-JSIZB/INJECT, JOINT/BURSA 0 02/08/2023 21049, N4557-CNURV/INJECT, JOINT/BURSA 1 11/02/201959282, N9185-OGCSW/INJECT, JOINT/BURSA 0 01/02/2021 27576, F9052-EBQQD/INJECT, JOINT/BURSA 1 96537, Z7725-FYDKH/INJECT, JOINT/BURSA 0 12/08/2021 50472, I7738-BSHER/INJECT, JOINT/BURSA 0 04/08/201605095, X1667-XDVSR/INJECT, JOINT/BURSA 0 11/02/2016 70605, K6587-IOMTF/INJECT, JOINT/BURSA 0 01/26/2017 02283, Q4984-MFGQR/INJECT, JOINT/BURSA 0 12/10/201710944, T3276-LWFJB/INJECT, JOINT/BURSA 0 03/14/201892050, E1330-SIACU/INJECT, JOINT/BURSA 0 12/19/2018 18575, M4627-PEKPK/INJECT, JOINT/BURSA 0 04/20/201988159, N2129-CCYVR/INJECT, JOINT/BURSA 1 10/24/201884307, B8225-UFODG/INJECT, JOINT/BURSA 0 01/01/202021144, X0495-LGMWS/INJECT, JOINT/BURSA 0 06/21/202322588, Z2727-QFYTG/INJECT, JOINT/BURSA 0 11/01/2023 11693, N2244-YUWJB/INJECT, JOINT/BURSA 0 02/28/202496713, M2951-AIHEY/INJECT, JOINT/BURSA 1 10/17/202362770, D1690-IZBDY/INJECT, JOINT/BURSA 0 05/24/202599793, Z1460-YPHEX/INJECT, JOINT/BURSA 0 05/05/202100906, P7995-ECJEW/INJECT, JOINT/BURSA 1 10/29/201752152, Z0260-QBQXD/INJECT, JOINT/BURSA 1 11/24/2016 62014,G3697-AVY TENDON SHEATH/LIGAMENT 0 05/02/2020 Next Appt Details Provider Name:Aye Miranda Izaiah , 08/27/2025 08:15:00 AM, [address] [facility], [place], [address], Insurance Providers Payer Name Payer Address Payer Phone Subscriber Number Group Number Insured Name Patient Relationship to Insured Coverage Start Date Coverage End Date Medicare National [employer]t [employer] [address] [facility] [place] [address] [id number] Rebekah Suh Self - patient is the insured [facility] [address] RICKY ORTIZ [id number] Rebekah Suh Self - patient is [...] osteoarthritis, left ankle and f oot M19.072 Other hammer toe(s) (acquired), right fo ot M20.41 Arthritis of joint of lesser toe, right M19.071 Hallux valgus (acquired), left foot M20. 12 Surgical History Surgery Date(Month/Year) ovarian surgery lumpectomy ankle surgery colonoscopy 08/2017 left kidney removed 06/16/18 Incisional Hernia repair-daystay 11/29/19 20 hysterectomy, bladder 11/18/22 Hernia Surgery 08/03/23 surgery for bladder prolapse 12/29/24 Hospitalization History Reason Date(Month/Year) [facility] for a day bad reaction to fentanyl w hen colonoscopy was done 08/2017
--- OUTSIDE RECORDS SUMMARY | 2025-06-04 17:57 | XMS_ITS | Encounter Summary ---
Author Organization [facility] Address [address] [place] [address] Phone Care Team Providers Care Banana Expert Name Role Phone Regino Coleman MD Primary Care Provider Fallon Dillard MD Unavailable [phone] Jr Hogue MD Primary Care Provid er Encounter Details Date Type Department Care Team (Late st Contact Info) Description 09/29/2018 Procedure Pass [facility] MR Imaging, Black [address] [place] [address] Social History Tobacco Use Types Packs/Day Years [...] st Contact Info) Description 08/15/2024 Procedure Pass [address] [address] 08/06/2025 9:15 AM EDT Appointment [address] [address] Ayaan Corrales MD, [place] [address] [place], ASB [address] [place] [address] [email or web address] 08/06/2025 10:00 AM EDT Appointment [facility], [facility] - [facility] [address] [place] [address] Ayaan Corrales MD, MS [address] R[address] Oliveira, [facility] [address] [place] [address] [email or web address] documented as of this encounter Visit Diagnoses Not on filedocumented in this encounter Care Teams Banana Expert Relationship Specialty Start Date End Date Regino Coleman MD [address] [place] [address] PCP - General Internal Medicine 04/29/18 04/04/25 Jr Hogue MD [address] [place] [address] PCP - General Internal Medicine 04/05/25 Fallon Dillard MD [address] [place] [address] [email or web address] Referring Physician Hematology and Oncology 04/29/18 documented as of this encounter Additional Source Comments The information contained in this document represents components of the legal health record. It is not the complete legal health record.[facility]
--- OUTSIDE RECORDS SUMMARY | 2025-06-04 17:57 | XMS_ITS | Encounter Summary ---
Author Organization [facility] Address [address] [place] [address] [place] [address] Phone Care Team Providers Care Army Officer Name Role Phone Regino Coleman MD Primary Care Provider Fallon Dillard MD Unavailable [phone] Jr Hogue MD Primary Care Provid er Encounter Details Date Type Department Care Team (Late st Contact Info) Description 08/19/2023 Procedure Pass [facility], [address] [address] Social History Tobacco Use Types Packs/Day Years [...] a working camera? Not on file Comments Unknown Sex and Gender Information Value Date Recorded Sex Assigned at Female 06/08/2018 12:14 PM EDT Legal Sex Female 11:57 AM EDT Gender Identity Female 06/08/2018 12:14 PM EDT Sexual Orientation Straight 06/08/2018 12 :14 PM EDT documented as of this encounter Plan of Treatment Upcoming Encounters Date Type Department Care Team (Late st Contact Info) Description 08/15/2024 Procedure Pass [facility], [address] [address] 08/06/2025 9:15 AM EDT Appointment [address] [address] Ayaan Corrales MD, [address] [address] [email or web address] 08/06/2025 10:00 AM EDT Appointment [facility], X-Ray - [address] [address] Ayaan Corrales MD, [address] [address] [email or web address] documented as of this encounter Visit Diagnoses Not on filedocumented in this encounter Care Teams Army Officer Relationship Specialty Start Date End Date Regino Coleman MD [address] [place] [address] PCP - General Internal Medicine 04/29/18 04/04/25 Jr Hogue MD [address] [place] [address] PCP - General Internal Medicine 04/05/25 Fallon Dillard MD [address] [place] [address] [email or web address] Referring Physician Hematology and Oncology 04/29/18 documented as of this encounter Additional Source Comments The information contained in this document represents components of the legal health record. It is not the complete legal health record.[facility]
--- OUTSIDE RECORDS SUMMARY | 2025-06-04 17:57 | XMS_ITS | Clinical Summary ---
Author Organization [facility] Facility Address [address] [facility] [place] [address] Care Team Providers Care Line And Frame Poler Name Role Phone Regino Coleman MD Primary Care Provider [phone] Allergies Active Allergy Reactions Criticality Noted Date [...] Overview (08/14/2021): Last Assessment & Plan: Assessment: Rebekah Hahn is a 64 y.o. [...] initially though review of the pathology by [facility], Department of Pathology suggests that it may [...] date. Immunizations Immunization Administration Dates Next Due 3rd Planet SARS-COV-2 12/14/2020 Rapid RMS SARS-COV-2 08/06/2021 Pneumococcal Conjugate 13-Valent 12/29/2019 Family [...] PCV20, or PCV21) 02/23/2020 12/29/2019 Influenza Vaccine (#1) 2025 Pneumococcal Vaccine: Peds ( 0 to 5 Years) and At-Risk Patients (6 to 49 Years) Discontinued 12/29/2019 Hepatitis B Vaccine Aged Out No longe r eligible based on patient's age to complete this topic Insurance Medicare [facility] Medicare [facility] Care Teams Line And Frame Poler Relationship Specialty Start Date End Date Regino Coleman MD [phone] RICKY CARO PCP - General 10/21/20
--- OUTSIDE RECORDS SUMMARY | 2025-06-04 17:57 | XMS_ITS | Encounter Summary ---
Author Organization [facility] Address [address] [place] [address] Phone Care Team Providers Care Endoscopy Support Specialist Name Role Phone Regino Coleman MD Primary Care Provider Fallon Dillard MD Unavailable [phone] Jr Hogue MD Primary Care Provid er Encounter Details Date Type Department Care Team (Late st Contact Info) Description 06/23/2018 Procedure Pass [facility] Radiology [address] [place] [address] Social History Tobacco Use Types Packs/Day Years [...] st Contact Info) Description 08/15/2024 Procedure Pass [address] [address] 08/06/2025 9:15 AM EDT Appointment [address] [address] Ayaan Corrales MD, [place] [address] [place], ASB [address] [place] [address] [email or web address] 08/06/2025 10:00 AM EDT Appointment [facility], X-Ray - [address] [address] Ayaan Corrales MD, MS 45 Regino Oliveira, [facility] [address] [place] [address] [email or web address] documented as of this encounter Visit Diagnoses Not on filedocumented in this encounter Care Teams Endoscopy Support Specialist Relationship Specialty Start Date End Date Regino Coleman MD [address] [place] [address] PCP - General Internal Medicine 04/29/18 04/04/25 Jr Hogue MD [address] [place] [address] PCP - General Internal Medicine 04/05/25 Fallon Dillard MD [address] [place] [address] [email or web address] Medicalsamar[facility] north health centerSpecific Media Referring Physician Hematology and Oncology 04/29/18 documented as of this encounter Additional Source Comments The information contained in this document represents components of the legal health record. It is not the complete legal health record.[facility]
--- OUTSIDE RECORDS SUMMARY | 2025-06-04 17:57 | XMS_ITS | Encounter Summary ---
Author Organization [facility] Address [address] [place] [address] Phone Care Team Providers Care Skip Operator Name Role Phone Regino Coleman MD Primary Care Provider Fallon Dillard MD Unavailable [phone] Jr Hogue MD Primary Care Provid er Encounter Details Date Type Department Care Team (Late st Contact Info) Description 07/07/2022 Procedure Pass [address] [address] Social History Tobacco Use Types Packs/Day Years [...] st Contact Info) Description 08/15/2024 Procedure Pass [address] [address] 08/06/2025 9:15 AM EDT Appointment [address] [address] Ayaan Corrales MD, MS 45 Regino Oliveira, [facility] [address] [place] [address] [email or web address] 08/06/2025 10:00 AM EDT Appointment [facility], X-Ray - [facility] [address] [place] [address] Ayaan Corrales MD, MS 45 Regin[address] [place], [facility] [address] [place] [address] [email or web address] documented as of this encounter Visit Diagnoses Not on filedocumented in this encounter Care Teams Skip Operator Relationship Specialty Start Date End Date Regino Coleman MD [address] [place] [address] PCP - General Internal Medicine 04/29/18 04/04/25 Jr Hogue MD [address] [place] [address] PCP - General Internal Medicine 04/05/25 Fallon Dillard MD [address] [place] [address] [email or web address] Referring Physician Hematology and Oncology 04/29/18 documented as of this encounter Additional Source Comments The information contained in this document represents components of the legal health record. It is not the complete legal health record.[facility]
== END 2025-06-04 17:01 | disposition home or self-care (01) ==
LOC: HO.HMCHD 16:01
PROVIDERS: PCP Internal Medicine; Visit Provider Physician Assistant
DX: J32.9 Chronic sinusitis, unspecified (principal); J40 Bronchitis, not specified as acute or chronic

== ENCOUNTER 2025-06-04 16:01 | Outpatient (REF) | payer MEDICARE, OTHER, SELFPAY ==
--- NOTE | ~2025-06-04 | XR_ITS ---
EXAMINATION: XR CHEST CLINICAL INFORMATION: R05.8 - Other specified cough COMPARISON: January 24, 2025 TECHNIQUE: 2 views of the chest were obtained. FINDINGS: No significant abnormality is noted involving the heart, lungs, mediastinum, bony thorax or soft tissues. XR/XR chest 2V IMPRESSION: No acute disease Electronically signed by: Frederic Milligan MD 06/04/2025 05:07 PM EDT RP
[2025-06-04 16:50] LABS: MANUAL DIFF FLAG NO
[2025-06-04 17:10] LABS: Hematocrit 43.7 % (37.0-47.0); Hemoglobin 13.9 g/dl (12.0-16.0); Imm Gran Abs Auto 0.10 X10*3/uL (0.00-0.03); Imm Gran Pct Auto 1.9 % (0.0-0.4); Lymphocytes Absolute Auto 2.0 X10*3/uL (1.2-4.9); Mean Corpuscular HGB Conc 31.8 g/dl (31.0-35.0); Mean Corpuscular Hemoglobin 29.4 pg (27.0-33.0); Mean Corpuscular Volume 92.6 fL (80.0-98.0); NRBC Abs Auto 0.000 X10*3/uL (0.0-0.012); NRBC Pct Auto 0.0 /100WBC (0.0-0.2); Platelet Count 316 X10*3/uL (160-400); Red Blood Count 4.72 X10*6/uL (4.20-5.50); White Blood Count 5.4 X10*3/uL (4.8-10.8)
== END 2025-06-04 16:02 | disposition home or self-care (01) ==
LOC: HO.XRAY 16:01
PROVIDERS: PCP Internal Medicine; Visit Provider Physician Assistant
DX: D72.829 Elevated white blood cell count, unspecified (principal); R05.8 Other specified cough; Z79.2 Long term (current) use of antibiotics; Z79.52 Long term (current) use of systemic steroids; Z79.899 Other long term (current) drug therapy
CPT/HCPCS: 36415; 71046; 85025; 99212

== ENCOUNTER → 2025-06-04 16:50 | Outpatient (BNV) | payer MEDICARE, OTHER, SELFPAY | PROVIDERS: PCP Internal Medicine; Visit Provider Radiology Diagnostic Radiology | DX: R05.8 Other specified cough (principal) | CPT/HCPCS: 71046 ==

== ENCOUNTER 2025-06-07 13:29 | Outpatient (AMB) | payer MEDICARE, OTHER, SELFPAY ==
--- OUTSIDE RECORDS SUMMARY | 2024-12-11 04:15 | XMS_ITS ---
Author Organization [facility] Address [address] [place] [address] Care Team Providers Care Bank Consultant Name Role Phone Lennie, Kartik Primary Care Provider [phone] Black, Aye Unavailable [phone] Allergies Allergen (clinical drug ingredient) Drug/Non Drug [...] Negative Encounters Encounter Location Date Provider Diagnosis [facility] [place] [address] [place] [address] 12/11/2024 Aye Bliss Plan Of Treatment Next Appt Details Provider Name:Aye Bliss , 08/27/2025 08:15:00 AM, [address] [place], [address], Progress Notes * Ashvin HAHNOB: [birth year] (69 yo F)Acc No.[id number]:12/11/2024 Progress Note Patient: Rebekah POLO Provider: Alicja Bliss DPM :1955 A ge:69 Y S ex:Female Date:12/11/2024 Address:[address] [place] [address] Pcp:Jr Hogue Subjective: * Chief Complaints: * [...] denies.? C ardiovascular: Pacemaker d enies. 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 W PW d enies. C [...] eakness d enies. P odiatric: Comments S [facility] for comments. I nteg.: Marques [...] 0 12/11/2024 Generated for Chandler bentley/Brennon/Nirav on: 0 06/07/2025 02:12 PM EDT
--- NOTE | 2025-06-07 13:31 | A.OFFVIS_ITS ---
Vital Signs 06/07/25 13:46 Height 5 ft 3 in Weight 137 lb BMI 24.3 BP 139/64 Blood Pressure Location Rt brachial Position Sitting Pulse 73 Intake Visit Reasons: s/p MRI 05/30 Intake Note: Patient is seen in office for MRI results, hx of (LCIS) of the breast. Pt c/o: worried about results but understands results are okay. MRI:05/30/25 mm:11/23/24 Clinical Biostatistics Director Required: No Accompanied by: Self / Same As Patient Allergies fentanyl (FENTANYL) Allergy (Severe, Verified 06/07/25 13:44) SEVERE VOMITING, severe headache, vomiting sulfamethoxazole (From BACTRIM) Allergy (Severe, Verified 06/07/25 13:44) CANNOT TAKE-ONLY HAS ONE KIDNEY trimethoprim (From BACTRIM) Allergy (Severe, Verified 06/07/25 13:44) CANNOT TAKE-ONLY HAS ONE KIDNEY azithromycin (AZITHROMYCIN) Allergy (Intermediate, Verified 06/07/25 13:44) DIARRHEA HPI HPI s/p MRI 05/30: Details: She is here for a history of LCIS of the right breast in 2013. She had been on tamoxifen and letrozole in the past. She undergoes high-risk surveillance with MRI and mammograms. She denies any palpable breast masses. She feels well overall. She continues to follow with Dr. Dillard. She says she just had another bladder suspension surgery but she says she thinks this has failed again. She had an MRI done last week and she is here to discuss the findings. 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 History of kidney cancer Chronic kidney disease Migraines Osteoarthritis Fibromyalgia Hypercholesteremia Surgical History History of bladder surgery History of colonoscopy (~08/12/17) History of hernia repair H/O hysterectomy for benign disease Hx of surgical procedure (~08/03/23) H/O vaginal hysterectomy History of incisional hernia repair (~11/29/19) History of nephrectomy, left (~06/2018) Status post biopsy of kidney (~04/2018) History of breast biopsy (~05/11/14) History of tonsillectomy and adenoidectomy S/P removal of left ovary (~1978) History of removal of cyst (~1972) History of ankle surgery (~2003) H/O kidney removal History of breast surgery Hx of tonsillectomy Family History Father Stomach cancer Prostate cancer High cholesterol Sister Stroke Mother High cholesterol CLL (chronic lymphocytic leukemia) Maternal Aunt Breast cancer Social History Household Members: Spouse Housing: House Alcohol intake: current Alcohol intake frequency: holidays/special occasions only Patient Tobacco Use Status: Never used Tobacco e-Cigarette/Vaping Use: Never Used Advance Directives Date on File: 07/25/20 service: No Current occupational status: 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 Sexual orientation: Straight/Heterosexual Gender identity: Female Cognitive needs: No Hearing needs: Yes (bilateral hearing aids) Vision needs: Yes (rx glasses) Female Reproductive History Menstrual Age of Menarche: 10 Review of Systems Const Denies chills and Denies fever(s) Card Denies chest pain, Denies dyspnea and Denies dyspnea on exertion Resp Denies cough, Denies dyspnea and Denies dyspnea on exertion GI Denies hematochezia and Denies change in bowel habits Denies hematuria Musc Denies back pain and Denies limited range of motion Neuro Denies focal weakness and Denies convulsions Psych Denies depression and Denies mood swings Physical Exam Const General: comfortable and no acute distress Orientation/consciousness: patient oriented x3 Neck Neck: Yes no lymphadenopathy Chest Other: No palpable breast masses, no nipple or skin changes, no axillary lymphadenopathy Resp Auscultation: clear to auscultation bilaterally Cardio Rhythm: regular rhythm GI Palpation (GI): Soft to palpation, nontender and no guarding Neuro General: patient oriented x3 Assessment & Plan Assessment & Plan (1) 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 This shows a 4 mm enhancing oval mass on the lower outer quadrant of the left breast that appears to be benign and likely to represent postsurgical changes.There were no enhancing masses or s uspicious findings However, in view of her history, I follow up imaging in 6 months had been recommended by the radiologist. I explained to her the above. She seems to understand the plan well and is comfortable with this. I will see her again in the office after her next imaging study. 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
[2025-06-07 13:46] VITALS: BP 139/64; PULSE 73; BMI 24.3
--- OUTSIDE RECORDS SUMMARY | 2025-06-07 14:12 | XMS_ITS | Encounter Summary ---
Author Organization [facility] Address [address] [place] [address] Phone Care Team Providers Care Cleaner Name Role Phone Regino Coleman MD Primary Care Provider Fallon Dillard MD Unavailable [phone] Jr Hogue MD Primary Care Provid er Encounter Details Date Type Department Care Team (Late st Contact Info) Description 07/02/2020 Procedure Pass [address] [address] Social History Tobacco Use Types Packs/Day Years [...] st Contact Info) Description 08/15/2024 Procedure Pass [address] [address] 08/06/2025 9:15 AM EDT Appointment [address] [address] Ayaan Corrales MD, [place] 45 Regino [place], ASB [address] [place] [address] [email or web address] 08/06/2025 10:00 AM EDT Appointment [facility], X-Ray - [facility] [address] [place] [address] Ayaan Corrales MD, MS 45 Regino [place], [facility] [address] [place] [address] [email or web address] documented as of this encounter Visit Diagnoses Not on filedocumented in this encounter Care Teams Cleaner Relationship Specialty Start Date End Date Regino Coleman MD [address] [place] [address] PCP - General Internal Medicine 04/29/18 04/04/25 Jr Hogue MD [address] [place] [address] PCP - General Internal Medicine 04/05/25 Fallon Dillard MD [address] [place] [address] [email or web address] Referring Physician Hematology and Oncology 04/29/18 documented as of this encounter Additional Source Comments The information contained in this document represents components of the legal health record. It is not the complete legal health record.[facility]
--- OUTSIDE RECORDS SUMMARY | 2025-06-07 14:12 | XMS_ITS | Encounter Summary ---
Author Organization [facility] Address [address] [address] Phone Care Team Providers Care Energy Administrator Name Role Phone Regino Coleman MD Primary Care Provider Fallon Dillard MD Unavailable [phone] Jr Hogue MD Primary Care Provid er Encounter Details Date Type Department Care Team (Late st Contact Info) Description 05/11/2022 Procedure Pass [address] [address] Social History Tobacco Use Types Packs/Day Years [...] Contact Info) Description 08/15/2024 Procedure Pass [address] [address] 08/06/2025 9:15 AM EDT Appointment [address] [address] Ayaan Corrales MD, [place] 45 Regino Oliveira, [facility] [address] [place] [address] [email or web address] 08/06/2025 10:00 AM EDT Appointment [facility], X-Ray - [facility] [address] [place] [address] Ayaan Corrales MD, MS 45 Regino [place], [facility] [address] [place] [address] [email or web address] documented as of this encounter Visit Diagnoses Not on filedocumented in this encounter Care Teams Energy Administrator Relationship Specialty Start Date End Date Regino Coleman MD [address] [place] [address] PCP - General Internal Medicine 04/29/18 04/04/25 Jr Hogue MD [address] [place] [address] PCP - General Internal Medicine 04/05/25 Fallon Dillard MD [address] [place] [address] [email or web address] MD Lingofulton county health centerAudienceRate Ltd Referring Physician Hematology and Oncology 04/29/18 documented as of this encounter Additional Source Comments The information contained in this document represents components of the legal health record. It is not the complete legal health record.[facility]
--- OUTSIDE RECORDS SUMMARY | 2025-06-07 14:12 | XMS_ITS | Encounter Summary ---
Author Organization [facility] Address [address] [place] [address] Phone Care Team Providers Care Ostomy Rn Name Role Phone Regino Coleman MD Primary Care Provider Fallon Dillard MD Unavailable [phone] Jr Hogue MD Primary Care Provid er Encounter Details Date Type Department Care Team (Late st Contact Info) Description 06/16/2018 Procedure Pass [facility] Periop [address] [place] [address] Social History Tobacco Use Types Packs/Day Years [...] st Contact Info) Description 08/15/2024 Procedure Pass [address] [address] 08/06/2025 9:15 AM EDT Appointment [address] [address] Ayaan Corrales MD, MS [address] [place] [address] [facility] [address] [place] [address] [email or web address] 08/06/2025 10:00 AM EDT Appointment [facility], X-Ray - [address] [address] Ayaan Corrales MD, MS 45 Regino Oliveira, [facility] [address] [place] [address] [email or web address] documented as of this encounter Visit Diagnoses Not on filedocumented in this encounter Care Teams Ostomy Rn Relationship Specialty Start Date End Date Regino Coleman MD [address] [place] [address] PCP - General Internal Medicine 04/29/18 04/04/25 Jr Hogue MD [address] [place] [address] PCP - General Internal Medicine 04/05/25 Fallon Dillard MD [address] [place] [address] [email or web address] Referring Physician Hematology and Oncology 04/29/18 documented as of this encounter Additional Source Comments The information contained in this document represents components of the legal health record. It is not the complete legal health record.[facility]
--- OUTSIDE RECORDS SUMMARY | 2025-06-07 14:12 | XMS_ITS | Encounter Summary ---
Author Organization [facility] Address [address] [place] [address] Phone Care Team Providers Care Ladle Liner Name Role Phone Regino Coleman MD Primary Care Provider Fallon Dillard MD Unavailable [phone] Jr Hogue MD Primary Care Provid er Encounter Details Date Type Department Care Team (Late st Contact Info) Description 05/24/2018 Procedure Pass [facility] OUTSIDE IMG [address] [place] [address] Social History Tobacco Use Types Packs/Day Years [...] st Contact Info) Description 08/15/2024 Procedure Pass [address] [address] 08/06/2025 9:15 AM EDT Appointment [address] [address] Ayaan Corrales MD, MS [address] [place] [address] [email or web address] 08/06/2025 10:00 AM EDT Appointment [facility], X-Ray - [address] [address] Ayaan Corrales MD, MS 45 [facility], [facility] [address] [place] [address] [email or web address] documented as of this encounter Visit Diagnoses Not on filedocumented in this encounter Care Teams Ladle Liner Relationship Specialty Start Date End Date Regino Coleman MD [address] [place] [address] PCP - General Internal Medicine 04/29/18 04/04/25 Jr Hogue MD [address] [place] [address] PCP - General Internal Medicine 04/05/25 Fallon Dillard MD [address] [place] [address] [email or web address] Referring Physician Hematology and Oncology 04/29/18 documented as of this encounter Additional Source Comments The information contained in this document represents components of the legal health record. It is not the complete legal health record.[facility]
--- OUTSIDE RECORDS SUMMARY | 2025-06-07 14:12 | XMS_ITS | Encounter Summary ---
Author Organization [facility] Address [address] [place] [address] Phone Care Team Providers Care Payroll And Benefits Coordinator Name Role Phone Regino Coleman MD Primary Care Provider Fallon Dillard MD Unavailable [phone] Jr Hogue MD Primary Care Provid er Encounter Details Date Type Department Care Team (Late st Contact Info) Description 06/10/2021 Ancillary Orders [facility],Outside [address] [address] System, Provider Not In, [place] [address] Social History Tobacco Use Types Packs/Day Years [...] st Contact Info) Description 08/15/2024 Procedure Pass [address] [address] 08/06/2025 9:15 AM EDT Appointment [address] [place] [address] Ayaan Corrales MD, MS 45 Regin[address] [place], [facility] [address] [place] [address] [email or web address] 08/06/2025 10:00 AM EDT Appointment [facility], X-Ray - [address] [address] Ayaan Corrales MD, MS 45 Regino [place], [facility] [address] [place] [address] [email or web address] documented as of this encounter Results * MRI Abdomen Outside (No Interpretation) (06/19/2020 12:00 AM EDT) Narrative SYSTEMGENERATED, DOCUMENTATION - 06/10/2021 7:19 AM EDT This study is for PACS storage only and not for interpretation. us Provider Not In System PhD IMG OUTSIDE IMAGING W /OUT INTERPRETATION Final Result documented in this encounter Visit Diagnoses Not on filedocumented in this encounter Care Teams Payroll And Benefits Coordinator Relationship Specialty Start Date End Date Regino Coleman MD [address] [place] [address] PCP - General Internal Medicine 04/29/18 04/04/25 Jr Hogue MD [address] [place] [address] PCP - General Internal Medicine 04/05/25 Fallon Dillard MD [address] [place] [address] [email or web address] Referring Physician Hematology and Oncology 04/29/18 documented as of this encounter Additional Source Comments The information contained in this document represents components of the legal health record. It is not the complete legal health record.[facility]
--- OUTSIDE RECORDS SUMMARY | 2025-06-07 14:12 | XMS_ITS | Encounter Summary ---
Author Organization [facility] Address [address] [place] [address] Phone Care Team Providers Care Newspaper Writer Name Role Phone Regino Coleman MD Primary Care Provider Fallon Dillard MD Unavailable Jr Hogue MD Primary Care Provid er Encounter Details Date Type Department Care Team (Late st Contact Info) Description 04/27/2019 Procedure Pass [facility] MR Imaging, Black [address] [place] [address] Social History Tobacco Use Types Packs/Day Years [...] st Contact Info) Description 08/15/2024 Procedure Pass [address] [address] 08/06/2025 9:15 AM EDT Appointment [address] [address] Ayaan Corrales MD, MS 45 Regino [place], [facility] [address] [place] [address] [email or web address] 08/06/2025 10:00 AM EDT Appointment [facility], X-Ray - [facility] [address] [place] [address] Ayaan Corrales MD, MS 45 Regino [place], [facility] [address] [place] [address] [email or web address] documented as of this encounter Visit Diagnoses Not on filedocumented in this encounter Care Teams Newspaper Writer Relationship Specialty Start Date End Date Regino Coleman MD [address] [place] [address] PCP - General Internal Medicine 04/29/18 04/04/25 Jr Hogue MD [address] [place] [address] PCP - General Internal Medicine 04/05/25 Fallon Dillard MD [address] [place] [address] [email or web address] health bryan [email or web address] Therapeutics Referring Physician Hematology and Oncology 04/29/18 documented as of this encounter Additional Source Comments The information contained in this document represents components of the legal health record. It is not the complete legal health record.[facility]
--- OUTSIDE RECORDS SUMMARY | 2025-06-07 14:12 | XMS_ITS | Encounter Summary ---
Author Organization [facility] Address [address] [place] [address] Phone Care Team Providers Care Tc Operator Name Role Phone Regino Coleman MD Primary Care Provider Fallon Dillard MD Unavailable [phone] Jr Hogue MD Primary Care Provid er Encounter Details Date Type Department Care Team (Late st Contact Info) Description 06/15/[address] [facility] MR Imaging, Black [address] [place] [address] Social History Tobacco Use Types Packs/Day Years [...] st Contact Info) Description 08/15/2024 Procedure Pass [address] [address] 08/06/2025 9:15 AM EDT Appointment [address] [address] Ayaan Corrales MD, MS 45 Regino [place], [facility] [address] [place] [address] [email or web address] 08/06/2025 10:00 AM EDT Appointment [facility], X-Ray - [facility] [address] [place] [address] Ayaan Corrales MD, MS 45 Regino [address]ira, [facility] [address] [place] [address] [email or web address] documented as of this encounter Visit Diagnoses Not on filedocumented in this encounter Care Teams Tc Operator Relationship Specialty Start Date End Date Regino Coleman MD [address] [place] [address] PCP - General Internal Medicine 04/29/18 04/04/25 rJ Hogue MD [address] [place] [address] PCP - General Internal Medicine 04/05/25 Fallon Dillard MD [address] [place] [address] [email or web address] [email or web address].[facility] fairfield hospitalOsper Referring Physician Hematology and Oncology 04/29/18 documented as of this encounter Additional Source Comments The information contained in this document represents components of the legal health record. It is not the complete legal health record.[facility]
--- OUTSIDE RECORDS SUMMARY | 2025-06-07 14:12 | XMS_ITS | Clinical Summary ---
Author Organization [facility] Address [address] [place] [address] Phone Care Team Providers Care Press Setter Name Role Phone Fallon Dillard MD Unavailable [phone] Jr Hogue MD Primary Care Provid [...] with hand surgeon Dr. Mary Boss in [place] Regular use of meloxicam previously effective, but [...] will continue to follow up with her armature connector to optimize renal function. Assessment & Plan [...] will continue to follow up with her armature connector to optimize renal function. Assessment & Plan [...] initially though review of the pathology by [facility], Department of Pathology suggests that it [...] - 04/05/2025 11:59 PM EDT Hospital Encounter [facility] [address] [place] [address] Celia Fraser MD, MPH Discharge Disposition: Home or Self Care 04/05/2025 2:40 PM EDT Office Visit [facility] Rheumatology [address] [place] [address] Celia Fraser MD, MPH Stiffness of finger joint, unspecified laterality (Primary Dx); Elevated sed rate; Thrombocytosis; H/O unilateral nephrectomy; Osteoarthritis of carpometacarpal (CMC) joint of left thumb, unspecified osteoarthritis type 04/03/2025 Telephone [facility] Rheumatology [address] [place] [address] Celia Fraser MD, MPH Appointment from Last 3 Months Immunizations Immunization Administration Dates Next Due COVID-19 (Pre-08/02) [employer] Vaccine, [id number], P F 12/14/2020 COVID-19 (Pre-08/02) Pfizer Vaccine, mRNA, pat-sucrose, PF 08/06/2021 Family History [...] Contact Info) Description 08/15/[address] [address] 08/06/2025 9:15 AM EDT Appointment [address] [address] Ayaan Corrales MD, MS [address] [address] [email or web address] 08/06/2025 10:00 AM EDT Appointment [facility] X-Ray [address] [address] Ayaan Corrales MD, MS [address] [place], [place] [address] [place] [address] [email or web address] Health Maintenance Due Date Last Done Comments LIPID PANEL 1954 DEPRESSION SCREENING 1966 HEPATITIS C SCREENING 1972 MAMMOGRAM 1994 COLOGUARD 1999 COLONOSCOPY 1999 COLORECTAL CANCER SCREENING 1999 FIT TEST 1999 FOBT 1999 SIGMOIDOSCOPY 1999 VIRTUAL COLONOSCOPY 1999 ZOSTER VACCINES (1 of 2) 2004 OSTEOPOROSIS SCREENING INITIAL (ONE-TIME) 2019 INFLUENZA VACCINE (#1) 2025 , 07/19/2018, 09/20/2017 Adult Td,Tdap Booster 05/01/2033 05/01/2023 RSV VACCINE [...] EDT) SODIUM 141 133 - 146 mmol/L [facility] POTASSIUM 4.4 3.3 - 5.1 mmol/L [facility] CHLORIDE 105 96 - 108 mmol/L [facility] CO2 28 21 - 35 mmol/L [facility] BUN 14 6 - 19 mg/dL [facility] CREATININE 1.10 0.5 - 1.5 mg/dL [facility] GLUCOSE 96 70 - 99 mg/dL [facility] ALBUMIN 4.2 3.9 - 4.8 g/dL [facility] TOTAL PROTEIN 7.3 6.5 - 8.0 g/dL [facility] CALCIUM 9.7 8.4 - 10.3 mg/dL [facility] ALKALINE PHOSPHATASE 84 39 - 117 U/L [facility] TOTAL BILIRUBIN 0.7 0.0 - 1.2 mg/dL [facility] AST 32 0 - 37 U/L [facility] ALT 17 0 - 40 U/L [facility] GLOBULIN 3.1 1 - 4.8 g/dL [facility] EGFR 54(L) >59 mL/min/1.7 3m2 [facility] Comment:Estimated glomerular filtration rate calculated using the CKD-EPI refit equation. ANION GAP 12 10 - 20 mmol/L [facility] Blood 04/05/2025 4:03 PM EDT 04/05/2025 4:04 PM EDT Result [facility] Celia Fraser MD, MPH LAB BLOOD ORDERABLES Fin al Result [facility] [address] [place] [address] * CCP IgG antibodies (04/05/2025 4:03 PM EDT) ANTI-CCP IGG <8 0 - 16 U/mL [facility] Blood 04/05/2025 4:03 PM EDT 04/05/2025 4:04 PM EDT Celia Fraser MD, MPH LAB BLOOD ORDERABLES Fin al Result [facility] [address] [place] [address] * Sedimentation rate (ESR) (04/05/2025 4:03 PM EDT) ESR 8 0 - 30 mm/h [facility] Blood 04/05/2025 4:03 PM EDT 04/05/2025 4:04 PM EDT Celia Fraser MD, MPH LAB BLOOD ORDERABLES Fin al Result [facility] [address] [place] [address] * (ABNORMAL) CBC and differential (04/05/2025 4:03 PM EDT) WBC 7.40 4.00 - 11.00 K/uL [facility] RBC 4.52 4.00 - 5.20 M/uL [facility] HGB 13.1 12.0 - 16.0 g/dL [facility] HCT 42.0 36.0 - 46.0 % [facility] PLT 435 150 - 450 K/uL [facility] MCV 92.9 80.0 - 100.0 fL [facility] MCH 29.0 27.0 - 31.0 pg [facility] MCHC 31.2(L) 32.0 - 36.0 g/dL [facility] RDW 13.2 11.5 - 14.5 % [facility] MPV 9.5 8.4 - 12.0 fL [facility] NRBC 0.00 0.00 /100 WBCs [facility] ABSOLUTE NRBC 0.00 0.00 K/uL [facility] DIFF METHOD Auto [facility] NEUTS 53.0 48.0 - 76.0 % [facility] LYMPHS 35.9 18.0 - 41.0 % [facility] MONOS 8.8 4.0 - 11.0 % [facility] EOS 1.5 0.0 - 5.0 % [facility] BASOS 0.7 0.0 - 1.5 % [facility] Granulocytes, immature (%) 0.1 0.0 - 0.9 % [facility] ABSOLUTE NEUTS 3.92 1.92 - 7.60 K/uL [facility] ABSOLUTE LYMPHS 2.66 0.72 - 4.10 K/uL [facility] ABSOLUTE MONOS 0.65 0.16 - 1.10 K/uL [facility] ABSOLUTE EOS 0.11 0.00 - 0.50 K/uL [facility] ABSOLUTE BASOS 0.05 0.00 - 0.15 K/uL [facility] Granulocytes, immature 0.01 0.00 - 0.09 K/uL [facility] Blood 04/05/2025 4:03 PM EDT 04/05/2025 4:04 PM EDT Celia Fraser MD, MPH LAB BLOOD ORDERABLES Fin al Result Performing Organization Address [facility]/ZIP Co de Phone Number [address] [address] * Rheumatoid factor (04/05/2025 4:03 PM EDT) RHEUMATOID FACTOR <10.0 0.0 - 14.0 IU/ml [facility] Blood 04/05/2025 4:03 PM EDT 04/05/2025 4:04 PM EDT Result [facility] Celia Fraser MD, MPH LAB BLOOD ORDERABLES Fin al Result Performing Organization Address [facility] Co de Phone Number [address] [address] * C-Reactive Protein (04/05/2025 4:03 PM EDT) C REACTIVE PROTEIN <3.0 0.0 - 4.0 mg/L [facility] Blood 04/05/2025 4:03 PM EDT 04/05/2025 4:04 PM EDT Result [facility] Celia Fraser MD, MPH LAB BLOOD ORDERABLES Fin al Result Performing Organization Address [facility] Co de Phone Number [address] [address] from Last 3 Months Insurance MEDICARE PART A & B Member Subscriber Plan / Payer (Ef fective 2019-Present) Name:Rebekah Hahn Member ID:[id number] Relation to Subscriber:Self Name:Rebekah Hahn Subscriber ID:[id number] Payer ID:[id number] Group ID:Not on file Type:Medicare Address: [facility] AdmitSee [facility] [address] EXTENSION MEDICARE SUPPLEMENT MEDICARE PART A & B [facility] EXTENSION MEDICARE SUPPLEMENT MEDICARE PART A & B [employer] MEDICARE SUPPLEMENT MEDICARE PART A & B [employer] MEDICARE SUPPLEMENT MEDICARE PART A & B [facility] MEDICARE SUPPLEMENT MEDICARE PART A & B Member Subscriber Plan / Payer (Ef fective 2019-Present) Name:Rebekah Hahn Member ID:[id number] Relation to Subscriber:Self Name:Rebekah Hahn Subscriber ID:[id number] Payer ID:[id number] Group ID:Not on file Type:Medicare Address: [facility] AdmitSee [facility] [address] [place] [address] [place] [address] [place] [phone] MEDICARE PART A & B [facility] MEDICARE SUPPLEMENT MEDICARE PART A & B [employer] MEDICARE SUPPLEMENT MEDICARE PART A & B [employer] EXTENSION MEDICARE SUPPLEMENT RICYK ORTIZ [phone] Advance Directives For more information, please contact: [phone] (9AM - 5PM Vivien/[facility], Wednesday-Wednesday) Documents on File Type Date Recorded Patient Exhaust Worker Expl anation Healthcare Proxy 06/09/2018 10:59 AM 09-19 * Full Code (Presumed) (Latest Code Status on File) Date Activated Date Inactivated Comments 06/16/2018 1:39 PM 06/18/2018 3:12 PM Healthcare Agents on File Name Relationship Healthcare Agent Relationship Communication Orlin Hahn Spouse .Primary Health Care Agent (Proxy form on file) Care Teams Press Setter Relationship Specialty Start Date End Date Jr Hogue MD [address] [place] [address] PCP - General Internal Medicine 04/05/25 Fallon Dillard MD [address] [place] [address] [email or web address] Referring Physician Hematology and Oncology 04/29/18 Additional Source Comments The information contained in this document represents components of the legal health record. It is not the complete legal health record.[facility]
--- OUTSIDE RECORDS SUMMARY | 2025-06-07 14:13 | XMS_ITS | Encounter Summary ---
Author Organization [facility] Address [address] [place] [address] Phone Care Team Providers Care Unemployment Benefits Claims Taker Name Role Phone Regino Coleman MD Primary Care Provider Fallon Dillard MD Unavailable [phone] Jr Hogue MD Primary Care Provid er Encounter Details Date Type Department Care Team (Late st Contact Info) Description 06/10/2021 Ancillary Orders [facility],Outside [address] [address] System, Provider [place] In, [place] [address] Social History Tobacco Use Types Packs/Day Years [...] st Contact Info) Description 08/15/2024 Procedure Pass [address] [address] 08/06/2025 9:15 AM EDT Appointment [address] [place] [address] Ayaan Corrales MD, MS 45 Regino [place], [facility] [address] [place] [address] [email or web address] 08/06/2025 10:00 AM EDT Appointment [facility], X-Ray - [address] [address] Ayaan Corrales MD, MS 45 Regino [place], [facility] [address] [place] [address] [email or web address] documented as of this encounter Results [...] on filedocumented in this encounter Care Teams Unemployment Benefits Claims Taker Relationship Specialty Start Date End Date Regino Coleman MD [address] [place] [address] PCP - General Internal Medicine 04/29/18 04/04/25 Jr Hogue MD [address] [place] [address] PCP - General Internal Medicine 04/05/25 Fallon Dillard MD [address] [place] [address] [email or web address] Referring Physician Hematology and Oncology 04/29/18 documented as of this encounter Additional Source Comments The information contained in this document represents components of the legal health record. It is not the complete legal health record.[facility]
--- OUTSIDE RECORDS SUMMARY | 2025-06-07 14:13 | XMS_ITS | Encounter Summary ---
Author Organization [facility] Address [address] [place] [address] Phone Care Team Providers Care Family Reunification Specialist Name Role Phone Regino Coleman MD Primary Care Provider [phone] Encounter Details Date Type Department Care Team (Late st Contact Info) Description 11/25/2022 Telephone [facility] [address] [place] [address] Ying Medrano Social History Tobacco [...] called to relay that Dr. Reyes from [facility] had recently put a stent in [...] on filedocumented in this encounter Care Teams Family Reunification Specialist Relationship Specialty Start Date End Date Regino Coleman MD [address] VIRGINIERICKY FAUSTIN PCP - General 10/21/20 documented as of this encounter
--- OUTSIDE RECORDS SUMMARY | 2025-06-07 14:13 | XMS_ITS | Encounter Summary ---
Author Organization [facility] Address [address] [place] [address] Phone Care Team Providers Care Electronic Publications Specialist Name Role Phone Regino Coleman MD Primary Care Provider Fallon Dillard MD Unavailable [phone] Jr Hogue MD Primary Care Provid er Encounter Details Date Type Department Care Team (Late st Contact Info) Description 07/07/2022 Procedure Pass [address] [address] Social History Tobacco Use Types Packs/Day Years [...] Contact Info) Description 08/15/2024 Procedure Pass [address] [address] 08/06/2025 9:15 AM EDT Appointment [address] [address] Ayaan Corrales MD, [place] 45 Regino Oliveira, [facility] [address] [place] [address] [email or web address] 08/06/2025 10:00 AM EDT Appointment [facility], X-Ray - [facility] [address] [place] [address] Ayaan Corrales MD, MS 45 eRgino Houghton, [facility] [address] [place] [address] [email or web address] documented as of this encounter Visit Diagnoses Not on filedocumented in this encounter Care Teams Electronic Publications Specialist Relationship Specialty Start Date End Date Regino Coleman MD [address] [place] [address] PCP - General Internal Medicine 04/29/18 04/04/25 Jr Hogue MD [address] [place] [address] PCP - General Internal Medicine 04/05/25 Fallon Dillard MD [address] [place] [address] [email or web address] Referring Physician Hematology and Oncology 04/29/18 documented as of this encounter Additional Source Comments The information contained in this document represents components of the legal health record. It is not the complete legal health record.[facility]
--- OUTSIDE RECORDS SUMMARY | 2025-06-07 14:13 | XMS_ITS | Encounter Summary ---
Author Organization [facility] Address [address] [place] [address] Phone Care Team Providers Care Industrial Relations Director Name Role Phone Regino Coleman MD Primary Care Provider Fallon Dillard MD Unavailable [phone] Jr Hogue MD Primary Care Provid er Encounter Details Date Type Department Care Team (Late st Contact Info) Description 06/10/2021 Ancillary Orders [facility],Outside [address] [address] System, Provider Not In, [place] [address] Social History Tobacco Use Types Packs/Day Years [...] st Contact Info) Description 08/15/2024 Procedure Pass [address] [address] 08/06/2025 9:15 AM EDT Appointment [address] [place] [address] Ayaan Corrales MD, [place] 45 Regino [place], [facility] [address] [place] [address] [email or web address] 08/06/2025 10:00 AM EDT Appointment [facility], X-Ray - [address] [address] Ayaan Corrales MD, MS 45 Regino [place], [facility] [address] [place] [address] [email or web address] documented as of this encounter Results [...] on filedocumented in this encounter Care Teams Industrial Relations Director Relationship Specialty Start Date End Date Regino Coleman MD [address] [place] [address] PCP - General Internal Medicine 04/29/18 04/04/25 Jr Hogue MD [address] [place] [address] PCP - General Internal Medicine 04/05/25 Fallon Dillard MD [address] [place] [address] [email or web address] Referring Physician Hematology and Oncology 04/29/18 documented as of this encounter Additional Source Comments The information contained in this document represents components of the legal health record. It is not the complete legal health record.[facility]
--- OUTSIDE RECORDS SUMMARY | 2025-06-07 14:13 | XMS_ITS | Encounter Summary ---
Author Organization [facility] Address [address] [place] [address] Phone Care Team Providers Care Weight Control Engineer Name Role Phone Regino Coleman MD Primary Care Provider Fallon Dillard MD Unavailable [phone] Jr Hogue MD Primary Care Provid er Encounter Details Date Type Department Care Team (Late st Contact Info) Description 01/05/2019 Procedure Pass [facility], Black [address] [place] [address] Social History Tobacco Use Types Packs/Day Years [...] Contact Info) Description 08/15/2024 Procedure Pass [address] [address] 08/06/2025 9:15 AM EDT Appointment [address] [address] Ayaan Corrales MD, MS 45 Regino [place], [facility] [address] [place] [address] [email or web address] 08/06/2025 10:00 AM EDT Appointment [facility], X-Ray - [facility] [address] [place] [address] Ayaan Corrales MD, MS 45 Regino Oliveira, [facility] [address] [place] [address] [email or web address] documented as of this encounter Visit Diagnoses Not on filedocumented in this encounter Care Teams Weight Control Engineer Relationship Specialty Start Date End Date Regino Coleman MD [address] [place] [address] PCP - General Internal Medicine 04/29/18 04/04/25 Jr Hogue MD [address] [place] [address] PCP - General Internal Medicine 04/05/25 Fallon Dillard MD [address] [place] [address] [email or web address] children's hospitalImprint Energy Referring Physician Hematology and Oncology 04/29/18 documented as of this encounter Additional Source Comments The information contained in this document represents components of the legal health record. It is not the complete legal health record.[facility]
--- OUTSIDE RECORDS SUMMARY | 2025-06-07 14:13 | XMS_ITS | Patient Health Record ---
Author [facility] Address [address] [place] [address] Care Team Providers Care Contracts Intern Name Role Phone Jr Hogue Primary Care Provider [phone] Black, Aye Unavailable [phone] Allergies Allergen (clinical drug ingredient) Drug/Non Drug [...] Administration Date Status Comme nts Influenza Unknown 06/11/2024 Administered COVID-19 Quintin [employer] Quintin/Precious Unknown 07/31/2021 Administered First Dose: 12/14/2020 Social History Tobacco Use: Social History Observation [...] primary osteoarthritis of the ankle and/or foot ([id number]) Primary osteoarthrit is, left ankle and foot (M19.072) Active confirmed Vital Signs Blood pressure diastolic 75 mm Hg 05/24/2025 Height 5ft3in in 05/24/2025 Blood pressure systolic 121 mm Hg 05/24/2025 Weight 136 lbs 05/24/2025 BMI 24.09 kg/m2 05/24/2025 Procedures Procedure Date Ordered Date Performed Result Body Sit e , G2836-EOJTS/INJECT, JOINT/BURSA 08/17/2024 N/A , Y8684-WSNYC/INJECT, JOINT/BURSA 05/24/2025 N/A Encounters Encounter Location Date Provider Diagnosis [facility] [address] [place] [address] 08/17/2024 Aye Black Primary osteoarthrit is, left ankle and foot M19.072 ; Joint pain M25.50 ; Neuralgia and neuritis, unspecified M79.2 ; Hypertrophy of bone, 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 and Pain in left foot M79.[address] [address] 02/12/2025 Aye Bliss Primary osteoarthrit is, left [...] Other hammer toe(s) (acquired), right foot M20.[address] [address] 05/24/2025 Aye Bliss Primary osteoarthrit is, left ankle and foot M19.072 ; Joint pain M25.50 ; Neuralgia and neuritis, unspecified M79.2 and Hypertrophy of bone, 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 [address] 06/30/2024 [facility] [address] [facility] [address] [place] [address] 12/11/[address] [address] 02/12/2025 Aye Bliss Assessments Encounter Date Diagnosis [...] X ray : Foot, right 3V 04/24/2013 06023-Synk Destruction, 1-02/08/2023 48238-Hbrt Destruction, 1-14 12/08/2021, V9741-JDVZJ/INJECT, JOINT/BURSA 0 04/06/2022, A0636-LEQFO/INJECT, JOINT/BURSA 1 , E9072-SIUFO/INJECT, JOINT/BURSA 0 02/08/2023, M1674-OGMQH/INJECT, JOINT/BURSA 1 11/02/2019, T3785-BMYLG/INJECT, JOINT/BURSA 0 01/02/2021, T6166-FJHOZ/INJECT, JOINT/BURSA 0 05/05/2021 85771, R4107-NTBTL/INJECT, JOINT/BURSA 1 [address], C5613-NAHTT/INJECT, JOINT/BURSA 0 12/08/2021 62079, B9697-EFHKU/INJECT, JOINT/BURSA 0 04/08/2016 15989, P8408-UGJIB/INJECT, JOINT/BURSA 0 11/02/2016 12157, Q3388-MEHDQ/INJECT, JOINT/BURSA 0 01/26/201765102, D1620-BVOGK/INJECT, JOINT/BURSA 1 11/24/201621684, N3566-NKIZX/INJECT, JOINT/BURSA 0 12/10/201743546, R4516-MRWGH/INJECT, JOINT/BURSA 0 03/14/201837344, A1651-RPNWJ/INJECT, JOINT/BURSA 1 10/29/2017 67917, G5275-DVHRK/INJECT, JOINT/BURSA 0 12/19/2018 08521, X8462-PTACP/INJECT, JOINT/BURSA 0 04/20/201989848, U6381-GTRDM/INJECT, JOINT/BURSA 1 10/24/2018 43624, T2491-RKLDS/INJECT, JOINT/BURSA 0 01/01/2020 06241, U7985-PHXKH/INJECT, JOINT/BURSA 0 06/21/2023 22642, S6658-OMHYM/INJECT, JOINT/BURSA 0 11/01/2023 52559, P8411-VDIYD/INJECT, JOINT/BURSA 0 02/28/2024 51029, V0053-UUVJO/INJECT, JOINT/BURSA 1 10/17/2023 47695, D8480-XXOKY/INJECT, JOINT/BURSA 0 05/24/202557809,K1542-NWS TENDON SHEATH/LIGAMENT 0 05/02/2020 Next Appt Details Provider Name:Aye Miranda Izaiah , 08/27/2025 08:15:00 AM, [address] [facility], [place], [address], Insurance Providers Payer Name Payer Address Payer Phone Subscriber Number Group Number Insured Name Patient Relationship to Insured Coverage Start Date Coverage End Date Medicare National Govt [employer] [address] [place] [address] [id number] Rebekah Suh Self - patient is the insured [facility] [employer] [employer]) [address] RICKY ORTIZ [id number] Kimo hammonds Rebekah Self - patient is the insured Medical [...] bladder prolapse 12/29/24 Hospitalization History Reason Date(Month/Year) [facility] [place] bad reaction to fentanyl w hen colonoscopy was done 08/2017
--- OUTSIDE RECORDS SUMMARY | 2025-06-07 14:13 | XMS_ITS | Encounter Summary ---
Author Organization [facility] Address [address] [place] [address] Phone Care Team Providers Care Diving Judge Name Role Phone Regino Coleman MD Primary Care Provider Fallon Dillard MD Unavailable [phone] Jr Hogue MD Primary Care Provid er Encounter Details Date Type Department Care Team (Late st Contact Info) Description 06/23/2018 Procedure Pass [facility] Radiology [address] [place] [address] Social History Tobacco Use Types Packs/Day Years [...] st Contact Info) Description 08/15/2024 Procedure Pass [address] [address] 08/06/2025 9:15 AM EDT Appointment [address] [address] Ayaan Corrales MD, MS 45 Regino [place], AS[facility] [address] [place] [address] [email or web address] 08/06/2025 10:00 AM EDT Appointment [facility], X-Ray - [address] [address] Ayaan Corrales MD, MS 45 Regino Oliveira, [facility] [address] [place] [address] [email or web address] documented as of this encounter Visit Diagnoses Not on filedocumented in this encounter Care Teams Diving Judge Relationship Specialty Start Date End Date Regino Coleman MD [address] [place] [address] PCP - General Internal Medicine 04/29/18 04/04/25 Jr Hogue MD [address] [place] [address] PCP - General Internal Medicine 04/05/25 Fallon Dillard MD [address] [place] [address] [email or web address] Nancy Konrad Holdingstr[facility] medical centerTwoFish Referring Physician Hematology and Oncology 04/29/18 documented as of this encounter Additional Source Comments The information contained in this document represents components of the legal health record. It is not the complete legal health record.[facility]
--- OUTSIDE RECORDS SUMMARY | 2025-06-07 14:13 | XMS_ITS | Encounter Summary ---
Author Organization [facility] Address [address] [place] [address] Phone Care Team Providers Care Hand Meat Salter Name Role Phone Regino Coleman MD Primary Care Provider [phone] Encounter Details Date Type Department Care Team (Late st Contact Info) Description 01/06/2023 Telephone [facility] [address] [place] [address] Ying Medrano Social History Tobacco [...] appt w/ [facility] and fax order to [facility] and they will call and book sooner appt. Pt stated that she is going to see her senior contracts manager in 2 weeks and her MD stated she will do th US in office. Pls advise if you would like her senior contracts manager to do US or move forward with the hospital. Her senior contracts manager does not have a radiology department. * Telephone Encounter - Ying Medrano - 01/06/2023 9:51 AM EDT PT says she has renal ultrasound scheduled for 03/01/23. PT wants to be seen sooner, she is asking for an earlier appointment and is willing to commute to [place] if she can get a sooner appointment. documented in this encounter Plan of Treatment Not on file documented as of this encounter Visit Diagnoses Not on filedocumented in this encounter Care Teams Hand Meat Salter Relationship Specialty Start Date End Date Regino Coleman MD [address] [place] [address] [address] [place] PCP - General 10/21/20 documented as of this encounter
--- OUTSIDE RECORDS SUMMARY | 2025-06-07 14:13 | XMS_ITS | Encounter Summary ---
Author Organization [facility] Address [address] [place] [address] [place] [address] Phone Care Team Providers Care Apiculturist Name Role Phone Regino Coleman MD Primary Care Provider Fallon Dillard MD Unavailable [phone] Jr Hogue MD Primary Care Provid er Encounter Details Date Type Department Care Team (Late st Contact Info) Description 08/19/2023 Procedure Pass [facility], [address] [address] Social History Tobacco Use Types Packs/Day Years [...] st Contact Info) Description 08/15/2024 Procedure Pass [facility], [address] [address] 08/06/2025 9:15 AM EDT Appointment [address] [address] Ayaan Corrales MD, [address] [address] [email or web address] 08/06/2025 10:00 AM EDT Appointment [facility], X-Ray - [address] [address] Ayaan Corrales MD, [address] [address] [email or web address] documented as of this encounter Visit Diagnoses Not on filedocumented in this encounter Care Teams Apiculturist Relationship Specialty Start Date End Date Regino Coleman MD [address] [place] [address] PCP - General Internal Medicine 04/29/18 04/04/25 Jr Hogue MD [address] [place] [address] PCP - General Internal Medicine 04/05/25 Fallon Dillard MD [address] [place] [address] [email or web address] Referring Physician Hematology and Oncology 04/29/18 documented as of this encounter Additional Source Comments The information contained in this document represents components of the legal health record. It is not the complete legal health record.[facility]
--- OUTSIDE RECORDS SUMMARY | 2025-06-07 14:13 | XMS_ITS | Clinical Summary ---
Author Organization [facility] Facility Address [address] [facility] [address] [address] [place] [address] Care Team Providers Care Furnace Stock Inspector Name Role Phone Regino Coleman MD Primary Care Provider [phone] Allergies Active Allergy Reactions Criticality Noted Date [...] initially though review of the pathology by [facility], Department of Pathology suggests that [...] date. Immunizations Immunization Administration Dates Next Due Bolt SARS-COV-2 12/14/2020 [employer] SARS-COV-2 08/06/2021 Pneumococcal Conjugate 13-Valent 12/29/2019 Family [...] age to complete this topic Insurance Medicare [facility] Medicare [facility] Care Teams Furnace Stock Inspector Relationship Specialty Start Date End Date Regino Coleman MD [id number] RICKY CARO PCP - General 10/21/20
--- OUTSIDE RECORDS SUMMARY | 2025-06-07 14:13 | XMS_ITS | Patient Health Record ---
Author Organization [facility] Address [address] [place] [address] Care Team Providers Care Paralegal Legal Secretary Name Role Phone DESHAUN OROURKE Primary Care Provider Amilcar Santiago Unavailable [phone] Allergies No Known Allergies Results Component Value Reference Range Notes Calprotectin, Fecal Reviewed date:07/21/2024 12:26:40 PM Interpretation: Performing Lab:[facility], [address] [place] [phone] Notes/Report: Calprotectin, Fecal 10 Reference Range: <50 [...] borderline values. THIS TEST WAS PERFORMED AT: [employer] [address] [place] [address] RAFFY WITT MD,PHD,CHITRA GI PANEL Reviewed date:07/08/2024 08:13:38 PM Interpretation: Performing Lab:[facility], [address] [place] [address] Notes/Report: Campylobacter Not Detected Not Detect. Plesiomonas [...] is performed by Multiplexed PCR, utilizing the [employer] Array. Complete Blood Count Auto Di ff Reviewed date:07/06/2024 12:32:00 PM Interpretation: Performing Lab:[facility], [address] [place] [address], [place] [address] Notes/Report: White Blood Count 7.2 4.8-10.8 X10*3/uL [...] te Reviewed date:07/06/2024 04:52:01 PM Interpretation: Performing Lab:[address] [address] Notes/Report: Erythrocyte Sedimentation Rate 8 0-20 MM/HR Patients with polycythemia and many hemoglobin abnormalities may have depressed sed rates whereas patients with anemia may have elevated sed rates. C Reactive Protein Reviewed date:07/06/2024 04:51:54 PM Interpretation: Performing Lab:[address] [address] Notes/Report: C Reactive Protein < 0.10 < or = 0.50 mg/dL Leukocytes Stool Qualitative Reviewed date:07/08/2024 08:12:59 PM Interpretation: Performing Lab:[address] [address] Notes/Report: Leukocytes Stool Qualitative NEGATIVE NEGATIVE CDiff Gene PCR Reviewed date:07/08/2024 08:12:52 PM Interpretation: Performing Lab:[facility], [address] [place] [address] Notes/Report: CDiff Gene PCR NEGATIVE Negative If C. difficile strongly suspected despite one negative test, a second test may be sent vs. empiric treatment for C. difficile infection. Complete Blood Count Auto Di ff Reviewed date:08/01/2024 12:13:53 PM Interpretation: Performing Lab:[facility], [address] [place] [address] Notes/Report: White Blood Count 7.1 4.8-10.8 X10*3/uL [...] Status Risk Notes Problem Irritable bowel syndrome (33399200) Irritable bowel syndrome (K58.9) Active confirmed Problem 400235219 Encounter for screening for malignant neoplasm of colon (Z12.11) Active confirmed Problem Diarrhea (45262087) Diarrhea (R19.7) Active con firmed Problem Change in bowel habit (40936534) Change in bowel habits (R19.4) Active confirmed Problem Screening for malignant neoplasm of rectum (907575266) Encounter for screening for malignant neoplasm of rectum (Z12.12) Active confirmed Problem 95538309 Blood in stool (K92.1) Active confirmed Problem 654855473 Gastroesophageal reflux disease without esophagitis (K21.9) Active confirmed Problem 301540179 Gastroesophageal reflux disease, esophagitis presence not specified (K21.9) Active confirmed Problem Pancreatic cyst (27442004) 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) Active confirmed Problem 42832989 Constipation, unspecified constipation type (K59.00) Active confirmed Problem 605191130 Abdominal pain, left lower quadrant (R10.32) Active confirmed Problem Gastroesophageal reflux disease (869985252) GERD (gastroesophageal reflux disease) (K21.9) Active confirmed Problem Irritable bowel syndrome characterized by constipation (702192911) Irritable bowel syndrome with constipation (K58.1) Active confirmed Problem Irritable bowel syndrome (63106940) Irritable bowel syndrome with both constipation and diarrhea (K58.2) Active confirmed Problem Thrombocytosis (disorder) (2622513) Thrombocytosis, unspecified (D75.839) Active confirmed Problem Neoplasm of digestive system (841896143) IPMN (intraductal papillary mucinous neoplasm) (D49.0) Active confirmed Vital Signs Blood pressure diastolic 77 mm Hg 04/03/2025 Height 64 in 04/03/2025 Blood pressure systolic 111 mm Hg 04/03/2025 Weight 136 lbs 04/03/2025 BMI 23.34 kg/m2 04/03/2025 Procedures Procedure Date Ordered Date Performed Result Body Sit e UPPER GI ENDOSCOPY 04/03/2025 N/A COLONOSCOPY 04/03/2025 N/A Encounters Encounter Location Date Provider Diagnosis [facility] [address] [place] [address] 09/28/2024 Amilcar Sosa Gastroesophageal ref lux disease, esophagitis presence not specified K21.9 ; Irritable bowel syndrome with constipation K58.1 ; Encounter for screening for malignant neoplasm of colon Z12.11 ; Constipation, unspecified constipation type K59.00 and Pancreatic cyst K86.[address] [place] [address] [place] [address] 04/03/2025 Amilcar Sosa Change in bowel habi ts R19.4 ; Irritable bowel syndrome with both constipation and diarrhea K58.2 ; GERD (gastroesophageal reflux disease) K21.9 and IPMN (intraductal papillary mucinous neoplasm) D49.0 [facility] [address] [place] [address] 06/28/2024 Amilcar Sosa [facility] [address] [place] [address] 07/05/2024 Amilcar Sosa Diarrhea R19.7 [facility] [address] [place] [address] 07/10/2024 Amilcar Sosa Diarrhea R19.7 and Thrombocytosis, unspecified D75.839 [facility] [address] [place] [address] 07/20/2024 Amilcar Sosa [facility] [address] [place] [address] 09/28/2024 Amilcar Sosa Assessments Encounter Date Diagnosis [...] will be having it done up at [facility] as it is ordered by her [place] [facility] in regard to the follow-up of [...] will be having it done up at [facility] as it is ordered by her [place] [facility] in regard to the follow-up of [...] will be having it done up at [facility] as it is ordered by her [place] [facility] in regard to the follow-up of [...] will be having it done up at [facility] as it is ordered by her [place] [facility] in regard to the follow-up of [...] (ICD-10 - K86.2) Need MRI report from [facility] from 06/2024 Overall, Cordell appears [...] Name:Amilcar Quintero Sheila , 07/04/2025 10:20:00 AM, [address] [place] [address] , [place], [place], [id number], Provider Name:Amilcar Quintero Sheila , 09/27/2025 09:00:00 AM, [address] [place] [address], [address], [place], [address], Insurance Providers Payer Name Payer Address Payer Phone Subscriber Number Group Number Insured Name Patient Relationship to Insured Coverage Start Date Coverage End Date MEDICARE OF [place] [address] [place] [address] [phone] [id number] LENA Wright CORDELL Self - patient is the insured [facility] (Counts Include [facility]) [address] [place] [address] [phone] [id number] CORDELL ORDAZ Self - patient is the insured Medical (General) History Medical History History ICD Code Screening colonoscopy 05-24-2009--negativ e EGD 01-05-2002 and in 11/2016--small HH, n o esophagitis, no Hernandes's Asthma--presently asymptomatic 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 Dillard Mitral valve prolapse Lyme's disease/Fibromyalgia--Amitryptile ne and Gabapentin Migraines-on Propranolol Hyperlipidemia Arthritis in left foot--Meloxicam/Cortis one injections Denies MD,DM,CVA,renal disease Renal cancer with surgery in 06/2018 [...] 11/18/2022 [facility] Corrales 06/2018 Uterine polyps Breast biopsy -2013--breast-left--LCIS Left ovary removed and appy Broken ankle/beau and screws right Cyst removed both breasts Tonsillectomy
--- OUTSIDE RECORDS SUMMARY | 2025-06-07 14:13 | XMS_ITS | Encounter Summary ---
Author Organization [facility] Address [address] [place] [address] Phone Care Team Providers Care Gelatin Dynamite Packing Operator Name Role Phone Regino Coleman MD Primary Care Provider Fallon Dillard MD Unavailable [phone] Jr Hogue MD Primary Care Provid er Encounter Details Date Type Department Care Team (Late st Contact Info) Description 09/29/2018 Procedure Pass [facility] MR Imaging, Black [address] [place] [address] Social History Tobacco Use Types Packs/Day Years [...] st Contact Info) Description 08/15/2024 Procedure Pass [address] [address] 08/06/2025 9:15 AM EDT Appointment [address] [address] Ayaan Corrales MD, [place] 45 Regin[address] [place], [facility] [address] [place] [address] [email or web address] 08/06/2025 10:00 AM EDT Appointment [facility], X-Ray - [facility] [address] [place] [address] Ayaan Corrales MD, MS 45 Regino [place], [facility] [address] [place] [address] [email or web address] documented as of this encounter Visit Diagnoses Not on filedocumented in this encounter Care Teams Gelatin Dynamite Packing Operator Relationship Specialty Start Date End Date Regino Coleman MD [address] [place] [address] PCP - General Internal Medicine 04/29/18 04/04/25 Jr Hogue MD [address] [place] [address] PCP - General Internal Medicine 04/05/25 Fallon Dillard MD [address] [place] [address] [email or web address] Wanamakertrinity health system west campusMValve technologies Referring Physician Hematology and Oncology 04/29/18 documented as of this encounter Additional Source Comments The information contained in this document represents components of the legal health record. It is not the complete legal health record.[facility]
== END 2025-06-07 14:11 | disposition home or self-care (01) ==
LOC: HO.HGS 13:30
PROVIDERS: PCP Internal Medicine; Visit Provider Surgery
DX: Z86.000 Personal history of in-situ neoplasm of breast (principal)
CPT/HCPCS: 99213; G2211

== ENCOUNTER → 2025-06-07 13:29 | Outpatient (BNVA) | payer MEDICARE, OTHER, SELFPAY | PROVIDERS: PCP Internal Medicine; Visit Provider Surgery | DX: Z09 Encounter for follow-up examination after completed treatment for conditions other than malignant neoplasm (principal); Z86.000 Personal history of in-situ neoplasm of breast | CPT/HCPCS: 99212 ==

== ENCOUNTER 2025-06-18 10:28 | Outpatient (AMB) | payer MEDICARE, OTHER, SELFPAY ==
--- OUTSIDE RECORDS SUMMARY | 2024-07-03 05:15 | XMS_ITS ---
Author Organization [facility] Address [address] [place] [phone] Care Team Providers Care Marketing Technologist Name Role Phone Jr Hogue Primary Care Provider [phone] Aye Bliss [phone] Encounters Encounter Location Date Provider Diagnosis [address] [address] 07/03/2024 Aye Bliss Plan Of Treatment Next Appt Details Provider Name:Aye A Izaiah , 08/27/2025 08:15:00 AM, [address] [place] [address], [phone], Progress Notes * Alexander HAHNeDOB: [birth year] (69 yo F)Acc No.[id number]:07/03/2024 Progress Note Patient: Rebekah POLO Provider: Alicja Bliss DPM :1955 A ge:68 Y S ex:Female Date:07/03/2024 Address:[address] [place] [address] [place], [id number] Pcp:Jr Hogue Subjective: * Chief Complaints: * * Medical History: Objective: * Vitals: Assessment: Plan: * Treatment: * Images: * The named appointment provid er may or may not be the originator of this progress note, and it is not deemed complete until electronically signed by the appointment provider. Sign off status: Pending * Provider: Alicja Bliss DPM Date: 07/03/2024 Generated for Chandler Curtis on: 06/18/2025 12:28 PM EDT
--- OUTSIDE RECORDS SUMMARY | 2024-12-11 04:15 | XMS_ITS ---
Author Organization [facility] Address [address] [place] [address] Care Team Providers Care Kettle Girl Name Role Phone Lennie, Kartik Primary Care Provider Black, Aye Unavailable [phone] Allergies Allergen (clinical drug ingredient) Drug/Non Drug [...] Negative Encounters Encounter Location Date Provider Diagnosis [facility] [place] [address] [place] [address] 12/11/2024 Aye Bliss Plan Of Treatment Next Appt Details Provider Name:Aye Bliss , 08/27/2025 08:15:00 AM, [address] [place], [address], Progress Notes * Ashvin HAHNOB: [birth year] (69 yo F)Acc No.[id number]:12/11/2024 Progress Note Patient: Rebekah POLO Provider: Alicja Bliss DPM :1955 A ge:69 Y S ex:Female Date:12/11/2024 Address:[address] [place] [address] Pcp:Jr Hogue Subjective: * Chief Complaints: * [...] denies.? C ardiovascular: Pacemaker d enies. 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 W PW d enies. C [...] eakness d enies. P odiatric: Comments S [facility] for comments. I nteg.: Marques d enies. [...] 12/11/2024 Generated for Chandler bentley/Brennon/Nirav on: 0 06/18/2025 12:27 PM EDT
--- OUTSIDE RECORDS SUMMARY | 2025-06-18 12:27 | XMS_ITS | Encounter Summary ---
Author Organization [facility] Address [address] [place] [address] Phone Care Team Providers Care Produce Specialist Name Role Phone Regino Coleman MD Primary Care Provider Fallon Dillard MD Unavailable [phone] Jr Hogue MD Primary Care Provid er Encounter Details Date Type Department Care Team (Late st Contact Info) Description 06/16/2018 Procedure Pass [facility] Periop [address] [place] [address] Social History Tobacco Use Types Packs/Day Years [...] st Contact Info) Description 08/15/2024 Procedure Pass [address] [address] 08/06/2025 9:15 AM EDT Appointment [address] [address] Ayaan Corrales MD, MS [address] [place] [address] [facility] [address] [place] [address] [email or web address] 08/06/2025 10:00 AM EDT Appointment [facility], X-Ray - [address] [address] Ayaan Corrales MD, MS 45 Regino [place], [facility] [address] [place] [address] [email or web address] documented as of this encounter Visit Diagnoses Not on filedocumented in this encounter Care Teams Produce Specialist Relationship Specialty Start Date End Date Regino Coleman MD [address] [place] [address] PCP - General Internal Medicine 04/29/18 04/04/25 Jr Hogue MD [address] [place] [address] PCP - General Internal Medicine 04/05/25 Fallon Dillard MD [address] [place] [address] [email or web address] Chaologixbrown memorial hospitalProject Green Referring Physician Hematology and Oncology 04/29/18 documented as of this encounter Additional Source Comments The information contained in this document represents components of the legal health record. It is not the complete legal health record.[facility]
--- OUTSIDE RECORDS SUMMARY | 2025-06-18 12:27 | XMS_ITS | Encounter Summary ---
Author Organization [facility] Address [address] [place] [address] Phone Care Team Providers Care Correctional Agency Director Name Role Phone Regino Coleman MD Primary Care Provider Fallon Dillard MD Unavailable [phone] Jr Hogue MD Primary Care Provid er Encounter Details Date Type Department Care Team (Late st Contact Info) Description 05/24/2018 Procedure Pass [facility] OUTSIDE IMG [address] [place] [address] Social History Tobacco Use Types Packs/Day Years [...] st Contact Info) Description 08/15/2024 Procedure Pass [address] [address] 08/06/2025 9:15 AM EDT Appointment [address] [address] Ayaan Corrales MD, MS [address] [place] [address] [email or web address] 08/06/2025 10:00 AM EDT Appointment [facility], X-Ray - [address] [address] Ayaan Corrales MD, MS 45 [facility], [facility] [address] [place] [address] [email or web address] documented as of this encounter Visit Diagnoses Not on filedocumented in this encounter Care Teams Correctional Agency Director Relationship Specialty Start Date End Date Regino Coleman MD [address] [place] [address] PCP - General Internal Medicine 04/29/18 04/04/25 Jr Hogue MD [address] [place] [address] PCP - General Internal Medicine 04/05/25 Fallon Dillard MD [address] [place] [address] [email or web address] Referring Physician Hematology and Oncology 04/29/18 documented as of this encounter Additional Source Comments The information contained in this document represents components of the legal health record. It is not the complete legal health record.[facility]
--- OUTSIDE RECORDS SUMMARY | 2025-06-18 12:27 | XMS_ITS | Encounter Summary ---
Author Organization [facility] Address [address] [place] [address] Phone Care Team Providers Care Sales Coach Name Role Phone Regino Coleman MD Primary Care Provider Fallon Dillard MD Unavailable [phone] Jr Hogue MD Primary Care Provid er Encounter Details Date Type Department Care Team (Late st Contact Info) Description 05/11/2022 Procedure Pass [address] [address] Social History Tobacco Use Types Packs/Day Years [...] st Contact Info) Description 08/15/2024 Procedure Pass [address] [address] 08/06/2025 9:15 AM EDT Appointment [address] [address] Ayaan Corrales MD, MS 45 Regino [place], [facility] [address] [place] [address] [email or web address] 08/06/2025 10:00 AM EDT Appointment [facility], X-Ray - [facility] [address] [place] [address] Ayaan Corrales MD, MS 45 Regin[address] [place], [facility] [address] [place] [address] [email or web address] documented as of this encounter Visit Diagnoses Not on filedocumented in this encounter Care Teams Sales Coach Relationship Specialty Start Date End Date Regino Coleman MD [address] [place] [address] PCP - General Internal Medicine 04/29/18 04/04/25 Jr Hogue MD [address] [place] [address] PCP - General Internal Medicine 04/05/25 Fallon Dillard MD [address] [place] [address] [email or web address] Keen Systemsuniversity hospitals beachwood medical centerCo-Work Referring Physician Hematology and Oncology 04/29/18 documented as of this encounter Additional Source Comments The information contained in this document represents components of the legal health record. It is not the complete legal health record.[facility]
--- OUTSIDE RECORDS SUMMARY | 2025-06-18 12:28 | XMS_ITS | Encounter Summary ---
Author Organization [facility] Address [address] [place] [address] Phone Care Team Providers Care Residential Collections Name Role Phone Regino Coleman MD Primary Care Provider Fallon Dillard MD Unavailable [phone] Jr Hogue MD Primary Care Provid er Encounter Details Date Type Department Care Team (Late st Contact Info) Description 06/10/2021 Ancillary Orders [facility],Outside [address] [address] System, Provider Not In, [place] [address] Social History Tobacco Use Types Packs/Day Years [...] st Contact Info) Description 08/15/2024 Procedure Pass [address] [address] 08/06/2025 9:15 AM EDT Appointment [address] [place] [address] Ayaan Corrales MD, MS 45 Regin[address] [place], [facility] [address] [place] [address] [email or web address] 08/06/2025 10:00 AM EDT Appointment [facility], X-Ray - [address] [address] Ayaan Corrales MD, MS 45 Regin[address] [place], [facility] [address] [place] [address] [email or web address]@[facility] documented as of this encounter Results [...] on filedocumented in this encounter Care Teams Residential Collections Relationship Specialty Start Date End Date Regino Coleman MD [address] [place] [address] PCP - General Internal Medicine 04/29/18 04/04/25 Jr Hogue MD [address] [place] [address] PCP - General Internal Medicine 04/05/25 Fallon Dillard MD [address] [place] [address] [email or web address] Referring Physician Hematology and Oncology 04/29/18 documented as of this encounter Additional Source Comments The information contained in this document represents components of the legal health record. It is not the complete legal health record.[facility]
--- OUTSIDE RECORDS SUMMARY | 2025-06-18 12:28 | XMS_ITS | Encounter Summary ---
Author Organization [facility] Address [address] [place] [address] Phone Care Team Providers Care Information Systems Specialist Name Role Phone Regino Coleman MD Primary Care Provider Fallon Dillard MD Unavailable [phone] Jr Hogue MD Primary Care Provid er Encounter Details Date Type Department Care Team (Late st Contact Info) Description 06/10/2021 Ancillary Orders [facility],Outside [address] [address] System, Provider Not In, [place] [address] Social History Tobacco Use Types Packs/Day Years [...] st Contact Info) Description 08/15/2024 Procedure Pass [address] [address] 08/06/2025 9:15 AM EDT Appointment [address] [place] [address] Ayaan Corrales MD, MS 45 Regin[address] [place], [facility] [address] [place] [address] [email or web address] 08/06/2025 10:00 AM EDT Appointment [facility], X-Ray - [address] [address] Ayaan Corrales MD, MS 45 Regino [place], [facility] [address] [place] [address] [email or web address] documented as of this encounter [...] on filedocumented in this encounter Care Teams Information Systems Specialist Relationship Specialty Start Date End Date Regino Coleman MD [address] [place] [address] PCP - General Internal Medicine 04/29/18 04/04/25 Jr Hogue MD [address] [place] [address] PCP - General Internal Medicine 04/05/25 Fallon Dillard MD [address] [place] [address] [email or web address] Referring Physician Hematology and Oncology 04/29/18 documented as of this encounter Additional Source Comments The information contained in this document represents components of the legal health record. It is not the complete legal health record.[facility]
--- OUTSIDE RECORDS SUMMARY | 2025-06-18 12:28 | XMS_ITS | Encounter Summary ---
Author Organization [facility] Address [address] [place] [address] Phone Care Team Providers Care Bell Neck Hammerer Name Role Phone Regino Coleman MD Primary Care Provider Fallon Dillard MD Unavailable [phone] Jr Hogue MD Primary Care Provid er Encounter Details Date Type Department Care Team (Late st Contact Info) Description 06/15/2019 Procedure Pass [facility] MR Imaging, Black [address] [place] [address] Social History Tobacco Use Types Packs/Day Years [...] st Contact Info) Description 08/15/2024 Procedure Pass [address] [address] 08/06/2025 9:15 AM EDT Appointment [address] [address] Ayaan Corrales MD, MS 45 Regin[address] [place], [facility] [address] [place] [address] [email or web address] 08/06/2025 10:00 AM EDT Appointment [facility], X-Ray - [facility] [address] [place] [address] Ayaan Corrales MD, MS 45 Regino [place], [facility] [address] [place] [address] [email or web address] documented as of this encounter Visit Diagnoses Not on filedocumented in this encounter Care Teams Bell Neck Hammerer Relationship Specialty Start Date End Date Regino Coleman MD [address] [place] [address] PCP - General Internal Medicine 04/29/18 04/04/25 Jr Hogue MD [address] [place] [address] PCP - General Internal Medicine 04/05/25 Fallon Dillard MD [address] [place] [address] [email or web address] Open Learningzanesville city hospitalBlitz [employer] Referring Physician Hematology and Oncology 04/29/18 documented as of this encounter Additional Source Comments The information contained in this document represents components of the legal health record. It is not the complete legal health record.[facility]
--- OUTSIDE RECORDS SUMMARY | 2025-06-18 12:28 | XMS_ITS | Encounter Summary ---
Author Organization [facility] Address [address] [place] [address] Phone Care Team Providers Care Shell Molding Roller Blast Operator Name Role Phone Regino Coleman MD Primary Care Provider Fallon Dillard MD Unavailable [phone] Jr Hogue MD Primary Care Provid er Encounter Details Date Type Department Care Team (Late st Contact Info) Description 07/02/2020 Procedure Pass [address] [address] Social History Tobacco Use Types Packs/Day Years [...] Contact Info) Description 08/15/2024 Procedure Pass [address] [address] 08/06/2025 9:15 AM EDT Appointment [address] [address] Ayaan Corrales MD, MS 45 Regino [place], [facility] [address] [place] [address] [email or web address] 08/06/2025 10:00 AM EDT Appointment [facility], X-Ray - [facility] [address] [place] [address] Ayaan Corrales MD, MS 45 Regino [place], [facility] [address] [place] [address] [email or web address]@[email or web address] documented as of this encounter Visit Diagnoses Not on filedocumented in this encounter Care Teams Shell Molding Roller Blast Operator Relationship Specialty Start Date End Date Regino Coleman MD [address] [place] [address] PCP - General Internal Medicine 04/29/18 04/04/25 Jr Hogue MD [address] [place] [address] PCP - General Internal Medicine 04/05/25 Fallon Dillard MD [address] [place] [address] [email or web address] [employer] Servicest. anthony's hospitalSkylabs Referring Physician Hematology and Oncology 04/29/18 documented as of this encounter Additional Source Comments The information contained in this document represents components of the legal health record. It is not the complete legal health record.[facility]
--- OUTSIDE RECORDS SUMMARY | 2025-06-18 12:28 | XMS_ITS | Encounter Summary ---
Author Organization [facility] Address [address] [place] [address] Phone Care Team Providers Care Grocery Cashier Name Role Phone Regino Coleman MD Primary Care Provider [phone] Encounter Details Date Type Department Care Team (Late st Contact Info) Description 11/25/2022 Telephone [facility] [address] [place] [address] Ying Medrano Social History Tobacco [...] called to relay that Dr. Reyes from [facility] had recently put a stent in [...] on filedocumented in this encounter Care Teams Grocery Cashier Relationship Specialty Start Date End Date Regino Coleman MD [address] VIRGINIERICKY FAUSTIN PCP - General 10/21/20 documented as of this encounter
--- OUTSIDE RECORDS SUMMARY | 2025-06-18 12:28 | XMS_ITS | Encounter Summary ---
Author Organization [facility] Address [address] [place] [address] Phone Care Team Providers Care Annual Giving Officer Name Role Phone Regino Coleman MD Primary Care Provider Fallon Dillard MD Unavailable [phone] Jr Hogue MD Primary Care Provid er Encounter Details Date Type Department Care Team (Late st Contact Info) Description 04/27/2019 Procedure Pass [facility] MR Imaging, Black [address] [place] [address] Social History Tobacco Use Types Packs/Day Years [...] st Contact Info) Description 08/15/2024 Procedure Pass [address] [address] 08/06/2025 9:15 AM EDT Appointment [address] [address] Ayaan Corrales MD, MS 45 Regino [place], ASB [address] [place] [address] [email or web address] 08/06/2025 10:00 AM EDT Appointment [facility], X-Ray - [facility] [address] [place] [address] Ayaan Corrales MD, MS 45 Regino Oliveira, [facility] [address] [place] [address] [email or web address] documented as of this encounter Visit Diagnoses Not on filedocumented in this encounter Care Teams Annual Giving Officer Relationship Specialty Start Date End Date Regino Coleman MD [address] [place] [address] PCP - General Internal Medicine 04/29/18 04/04/25 Jr Hogue MD [address] [place] [address] PCP - General Internal Medicine 04/05/25 Fallon Dillard MD [address] [place] [address] [email or web address] ([employer])[email or web address] [email or web address] Referring Physician Hematology and Oncology 04/29/18 documented as of this encounter Additional Source Comments The information contained in this document represents components of the legal health record. It is not the complete legal health record.[facility]
--- OUTSIDE RECORDS SUMMARY | 2025-06-18 12:28 | XMS_ITS | Clinical Summary ---
Author Organization [facility] Address [address] [place] [address] Phone Care Team Providers Care Yarn Bleaching Machine Operator Name Role Phone Fallon Dillard MD Unavailable [...] with hand surgeon Dr. Mary Boss in [place] Regular use of meloxicam previously effective, but [...] will continue to follow up with her dust control engineer to optimize renal function. Assessment & [...] will continue to follow up with her dust control engineer to optimize renal function. Assessment & [...] initially though review of the pathology by [facility], Department of Pathology suggests that [...] - 04/05/2025 11:59 PM EDT Hospital Encounter [facility] Laboratory [address] [place] [address] Celia Fraser MD, MPH Discharge Disposition: Home or Self Care 04/05/2025 2:40 PM EDT Office Visit [facility] [address] [place] [address] Celia Fraser MD, MPH Stiffness of finger joint, unspecified laterality (Primary Dx); Elevated sed rate; Thrombocytosis; H/O unilateral nephrectomy; Osteoarthritis of carpometacarpal (CMC) joint of left thumb, unspecified osteoarthritis type 04/03/2025 Telephone [facility] [address] [place] [address] Celia Fraser MD, MPH Appointment from Last 3 Months Immunizations Immunization Administration Dates Next Due COVID-19 (Pre-08/02) Diavibe Vaccine, [id number], P F 12/14/2020 COVID-19 (Pre-08/02) [...] st Contact Info) Description 08/15/2024 Procedure Pass [address] [address] 08/06/2025 9:15 AM EDT Appointment [address] [address] Ayaan Corrales MD, MS [address] [address] [email or web address] 08/06/2025 10:00 AM EDT Appointment [facility] X-Ray [address] [address] Ayaan Corrales MD, MS [address] [place], [place] [address] [place] [address] [email or web address] Health Maintenance Due Date Last Done Comments [...] EDT) SODIUM 141 133 - 146 mmol/L [facility] POTASSIUM 4.4 3.3 - 5.1 mmol/L [facility] CHLORIDE 105 96 - 108 mmol/L [facility] CO2 28 21 - 35 mmol/L [facility] BUN 14 6 - 19 mg/dL [facility] CREATININE 1.10 0.5 - 1.5 mg/dL [facility] GLUCOSE 96 70 - 99 mg/dL [facility] ALBUMIN 4.2 3.9 - 4.8 g/dL [facility] TOTAL PROTEIN 7.3 6.5 - 8.0 g/dL [facility] CALCIUM 9.7 8.4 - 10.3 mg/dL [facility] ALKALINE PHOSPHATASE 84 39 - 117 U/L [facility] TOTAL BILIRUBIN 0.7 0.0 - 1.2 mg/dL [facility] AST 32 0 - 37 U/L [facility] ALT 17 0 - 40 U/L [facility] GLOBULIN 3.1 1 - 4.8 g/dL [facility] EGFR 54(L) >59 mL/min/1.7 3m2 [facility] Comment:Estimated glomerular filtration rate calculated using the CKD-EPI refit equation. ANION GAP 12 10 - 20 mmol/L [facility] Blood 04/05/2025 4:03 PM EDT 04/05/2025 4:04 PM EDT Result [facility] Celia Fraser MD, MPH LAB BLOOD ORDERABLES Fin al Result [facility] [address] [place] [address] * CCP IgG antibodies (04/05/2025 4:03 PM EDT) ANTI-CCP IGG <8 0 - 16 U/mL [facility] Blood 04/05/2025 4:03 PM EDT 04/05/2025 4:04 PM EDT Celia Fraser MD, MPH LAB BLOOD ORDERABLES Fin al Result [facility] [address] [place] [address] * Sedimentation rate (ESR) (04/05/2025 4:03 PM EDT) ESR 8 0 - 30 mm/h [facility] Blood 04/05/2025 4:03 PM EDT 04/05/2025 4:04 PM EDT Celia Fraser MD, MPH LAB BLOOD ORDERABLES Fin al Result [facility] [address] [place] [address] * (ABNORMAL) CBC and differential (04/05/2025 4:03 PM EDT) WBC 7.40 4.00 - 11.00 K/uL [facility] RBC 4.52 4.00 - 5.20 M/uL [facility] HGB 13.1 12.0 - 16.0 g/dL [facility] HCT 42.0 36.0 - 46.0 % [facility] PLT 435 150 - 450 K/uL [facility] MCV 92.9 80.0 - 100.0 fL [facility] MCH 29.0 27.0 - 31.0 pg [facility] MCHC 31.2(L) 32.0 - 36.0 g/dL [facility] RDW 13.2 11.5 - 14.5 % [facility] MPV 9.5 8.4 - 12.0 fL [facility] NRBC 0.00 0.00 /100 WBCs [facility] ABSOLUTE NRBC 0.00 0.00 K/uL [facility] DIFF METHOD Auto [facility] NEUTS 53.0 48.0 - 76.0 % [facility] LYMPHS 35.9 18.0 - 41.0 % [facility] MONOS 8.8 4.0 - 11.0 % [facility] EOS 1.5 0.0 - 5.0 % [facility] BASOS 0.7 0.0 - 1.5 % [facility] Granulocytes, immature (%) 0.1 0.0 - 0.9 % [facility] ABSOLUTE NEUTS 3.92 1.92 - 7.60 K/uL [facility] ABSOLUTE LYMPHS 2.66 0.72 - 4.10 K/uL [facility] ABSOLUTE MONOS 0.65 0.16 - 1.10 K/uL [facility] ABSOLUTE EOS 0.11 0.00 - 0.50 K/uL [facility] ABSOLUTE BASOS 0.05 0.00 - 0.15 K/uL [facility] Granulocytes, immature 0.01 0.00 - 0.09 K/uL [facility] Blood 04/05/2025 4:03 PM EDT 04/05/2025 4:04 PM EDT Celia Fraser MD, MPH LAB BLOOD ORDERABLES Fin al Result Performing Organization Address [facility]/ZIP Co de Phone Number [address] [address] * Rheumatoid factor (04/05/2025 4:03 PM EDT) RHEUMATOID FACTOR <10.0 0.0 - 14.0 IU/ml [facility] Blood 04/05/2025 4:03 PM EDT 04/05/2025 4:04 PM EDT Result [facility] Celia Fraser MD, MPH LAB BLOOD ORDERABLES Fin al Result Performing Organization Address [facility] Co de Phone Number [address] [address] * C-Reactive Protein (04/05/2025 4:03 PM EDT) C REACTIVE PROTEIN <3.0 0.0 - 4.0 mg/L [facility] Blood 04/05/2025 4:03 PM EDT 04/05/2025 4:04 PM EDT Result [facility] Celia Fraser MD, MPH LAB BLOOD ORDERABLES Fin al Result Performing Organization Address [facility] Co de Phone Number [address] [address] from Last 3 Months Insurance MEDICARE PART A & B Member Subscriber Plan / Payer (Ef fective 2019-Present) Name:Rebekah Hahn Member ID:[id number] Relation to Subscriber:Self Name:Rebekah Hahn Subscriber ID:[id number] Payer ID:[id number] Group ID:Not on file Type:Medicare Address: [facility] [employer] [facility] [address] [employer] MEDICARE SUPPLEMENT MEDICARE PART A & B [facility] EXTENSION MEDICARE SUPPLEMENT MEDICARE PART A & B [employer] MEDICARE SUPPLEMENT MEDICARE PART A & B [employer] MEDICARE SUPPLEMENT MEDICARE PART A & B [facility] MEDICARE SUPPLEMENT MEDICARE PART A & [place] [address] [address] [place] [address] MEDICARE PART A & B [facility] MEDICARE SUPPLEMENT MEDICARE PART A & B [employer] MEDICARE SUPPLEMENT MEDICARE PART A & B [employer] MEDICARE SUPPLEMENT RICKY ORTIZ [id number] Advance Directives For more information, please contact: [phone] (9AM - 5PM [facility], Wednesday-Wednesday) Documents on File Type Date Recorded Patient Bus Monitor Expl anation Healthcare Proxy 06/09/2018 10:59 AM 09-19 * Full Code (Presumed) (Latest Code Status on File) Date Activated Date Inactivated Comments 06/16/2018 1:39 PM 06/18/2018 3:12 PM Healthcare Agents on File Name Relationship Healthcare Agent Relationship Communication Orlin Hahn Spouse .Primary Health Care Agent (Proxy form on file) Care Teams Yarn Bleaching Machine Operator Relationship Specialty Start Date End Date Jr Hogue MD [address] [place] [address] PCP - General Internal Medicine 04/05/25 Fallon Dillard MD [address] [place] [address] [email or web address] Referring Physician Hematology and Oncology 04/29/18 Additional Source Comments The information contained in this document represents components of the legal health record. It is not the complete legal health record.[facility]
--- OUTSIDE RECORDS SUMMARY | 2025-06-18 12:28 | XMS_ITS | Encounter Summary ---
Author Organization [facility] Address [address] [place] [address] Phone Care Team Providers Care Waiter/Waitress Tourist Class Name Role Phone Regino Coleman MD Primary Care Provider Fallon Dillard MD Unavailable [phone] rJ Hogue MD Primary Care Provid er Encounter Details Date Type Department Care Team (Late st Contact Info) Description 06/10/2021 Ancillary Orders [facility],Outside [address] [address] System, Provider Not In, [place] [address] Social History Tobacco Use Types Packs/Day Years [...] st Contact Info) Description 08/15/2024 Procedure Pass [address] [address] 08/06/2025 9:15 AM EDT Appointment [address] [place] [address] Ayaan Corrales MD, MS 45 Regino [place], [facility] [address] [place] [address] [email or web address] 08/06/2025 10:00 AM EDT Appointment [facility], X-Ray - [address] [address] Ayaan Corrales MD, MS 45 Regino [place], [facility] [address] [place] [address] [email or web address] documented as of this encounter [...] on filedocumented in this encounter Care Teams Waiter/Waitress Tourist Class Relationship Specialty Start Date End Date Regino Coleman MD [address] [place] [address] PCP - General Internal Medicine 04/29/18 04/04/25 Jr Hogue MD [address] [place] [address] PCP - General Internal Medicine 04/05/25 Fallon Dillard MD [address] [place] [address] [email or web address] Referring Physician Hematology and Oncology 04/29/18 documented as of this encounter Additional Source Comments The information contained in this document represents components of the legal health record. It is not the complete legal health record.[facility]
--- OUTSIDE RECORDS SUMMARY | 2025-06-18 12:28 | XMS_ITS | Encounter Summary ---
Author Organization [facility] Address [address] [place] [address] Phone Care Team Providers Care Asp Net Mvc Developer Name Role Phone Regino Coleman MD Primary Care Provider [phone] Encounter Details Date Type Department Care Team (Late st Contact Info) Description 01/06/2023 Telephone [facility] [address] [place] [address] Ying Medrano Social History Tobacco [...] appt w/ [facility] and [facility] order [facility] and they will call and book sooner appt. Pt stated that she is going to see her industrial garage servicer in 2 weeks and her MD stated she will do th US in office. Pls advise if you would like her industrial garage servicer to do US or move forward with the hospital. Her industrial garage servicer does not have a radiology department. * Telephone Encounter - Ying Medrano - 01/06/2023 9:51 AM EDT PT says she has renal ultrasound scheduled for 03/01/23. PT wants to be seen sooner, she is asking for an earlier appointment and is willing to commute to [place] if she can get a sooner appointment. documented in this encounter Plan of Treatment Not on file documented as of this encounter Visit Diagnoses Not on filedocumented in this encounter Care Teams Asp Net Mvc Developer Relationship Specialty Start Date End Date Regino Coleman MD [address] [place] [address] DR[address] [place] PCP - General 10/21/20 documented as of this encounter
--- OUTSIDE RECORDS SUMMARY | 2025-06-18 12:29 | XMS_ITS | Encounter Summary ---
Author Organization [facility] Address [address] [place] [address] Phone Care Team Providers Care Lime Boiler Name Role Phone Regino Coleman MD Primary Care Provider Fallon Dillard MD Unavailable [phone] Jr Hogue MD Primary Care Provid er Encounter Details Date Type Department Care Team (Late st Contact Info) Description 01/05/2019 Procedure Pass [facility] MR Imaging, Black [address] [place] [address] Social History Tobacco Use Types Packs/Day Years [...] st Contact Info) Description 08/15/2024 Procedure Pass [address] [address] 08/06/2025 9:15 AM EDT Appointment [address] [address] Ayaan Corrales MD, MS 45 Regino [place], AS[facility] [address] [place] [address] [email or web address] 08/06/2025 10:00 AM EDT Appointment [facility], X-Ray - [facility] [address] [place] [address] Ayaan Corrales MD, MS 45 Regino [place], [facility] [address] [place] [address] [email or web address] documented as of this encounter Visit Diagnoses Not on filedocumented in this encounter Care Teams Lime Boiler Relationship Specialty Start Date End Date Regino Coleman MD [address] [place] [address] PCP - General Internal Medicine 04/29/18 04/04/25 Jr Hogue MD [address] [place] [address] PCP - General Internal Medicine 04/05/25 Fallon Dillard MD [address] [place] [address] [email or web address] [email or web address] Referring Physician Hematology and Oncology 04/29/18 documented as of this encounter Additional Source Comments The information contained in this document represents components of the legal health record. It is not the complete legal health record.[facility]
--- OUTSIDE RECORDS SUMMARY | 2025-06-18 12:29 | XMS_ITS | Encounter Summary ---
Author Organization [facility] Address [address] [place] [address] Phone Care Team Providers Care Supervisor Diagnostic Name Role Phone Regino Coleman MD Primary Care Provider Fallon Dillard MD Unavailable [phone] Jr Hogue MD Primary Care Provid er Encounter Details Date Type Department Care Team (Late st Contact Info) Description 07/07/2022 Procedure Pass [address] [address] Social History Tobacco Use Types Packs/Day Years [...] st Contact Info) Description 08/15/2024 Procedure Pass [address] [address] 08/06/2025 9:15 AM EDT Appointment [address] [address] Ayaan Corrales MD, MS 45 Regin[address], [facility] [address] [place] [address] [email or web address] 08/06/2025 10:00 AM EDT Appointment [facility], X-Ray - [facility] [address] [place] [address] Ayaan Corrales MD, MS 45 Regin[address] [place], [facility] [address] [place] [address] [email or web address] documented as of this encounter Visit Diagnoses Not on filedocumented in this encounter Care Teams Supervisor Diagnostic Relationship Specialty Start Date End Date Regino Coleman MD [address] [place] [address] PCP - General Internal Medicine 04/29/18 04/04/25 Jr Hogue MD [address] [place] [address] PCP - General Internal Medicine 04/05/25 Fallon Dillard MD [address] [place] [address] [email or web address] Referring Physician Hematology and Oncology 04/29/18 documented as of this encounter Additional Source Comments The information contained in this document represents components of the legal health record. It is not the complete legal health record.[facility]
--- OUTSIDE RECORDS SUMMARY | 2025-06-18 12:29 | XMS_ITS | Encounter Summary ---
Author Organization [facility] Address [address] [place] [address] [place] [address] Phone Care Team Providers Care Exchange Teller Name Role Phone Regino Coleman MD Primary Care Provider Fallon Dillard MD Unavailable [phone] Jr Hogue MD Primary Care Provid er Encounter Details Date Type Department Care Team (Late st Contact Info) Description 08/19/2023 Procedure Pass [facility], [address] [address] Social History Tobacco Use Types Packs/Day Years [...] st Contact Info) Description 08/15/2024 Procedure Pass [facility], [address] [address] 08/06/2025 9:15 AM EDT Appointment [address] [address] Ayaan Corrales MD, [address] [address] [email or web address] 08/06/2025 10:00 AM EDT Appointment [facility], X-Ray - [address] [address] Ayaan Corrales MD, [address] [address] [email or web address] documented as of this encounter Visit Diagnoses Not on filedocumented in this encounter Care Teams Exchange Teller Relationship Specialty Start Date End Date Regino Coleman MD [address] [place] [address] PCP - General Internal Medicine 04/29/18 04/04/25 Jr Hogue MD [address] [place] [address] PCP - General Internal Medicine 04/05/25 Fallon Dillard MD [address] [place] [address] [email or web address] Referring Physician Hematology and Oncology 04/29/18 documented as of this encounter Additional Source Comments The information contained in this document represents components of the legal health record. It is not the complete legal health record.[facility]
--- OUTSIDE RECORDS SUMMARY | 2025-06-18 12:29 | XMS_ITS | Encounter Summary ---
Author Organization [facility] Address [address] [place] [address] Phone Care Team Providers Care V Block Saw Operator Name Role Phone Regino Coleman MD Primary Care Provider Fallon Dillard MD Unavailable [phone] Jr Hogue MD Primary Care Provid er Encounter Details Date Type Department Care Team (Late st Contact Info) Description 06/23/2018 Procedure Pass [facility] [address] [place] [address] Social History Tobacco Use Types Packs/Day Years [...] st Contact Info) Description 08/15/2024 Procedure Pass [address] [address] 08/06/2025 9:15 AM EDT Appointment [address] [address] Ayaan Corrales MD, MS 45 Regino [employer], [facility] [address] [place] [address] [email or web address] 08/06/2025 10:00 AM EDT Appointment [facility], X-Ray - [address] [address] Ayaan Corrales MD, MS 45 Regino [place], [facility] [address] [place] [address] [email or web address] documented as of this encounter Visit Diagnoses Not on filedocumented in this encounter Care Teams V Block Saw Operator Relationship Specialty Start Date End Date Regino Coleman MD [address] [place] [address] PCP - General Internal Medicine 04/29/18 04/04/25 Jr Hogue MD [address] [place] [address] PCP - General Internal Medicine 04/05/25 Fallon Dillard MD [address] [place] [address] [email or web address] [email or web address] [email or web address] campusCardiac Concepts Referring Physician Hematology and Oncology 04/29/18 documented as of this encounter Additional Source Comments The information contained in this document represents components of the legal health record. It is not the complete legal health record.[facility]
--- OUTSIDE RECORDS SUMMARY | 2025-06-18 12:29 | XMS_ITS | Clinical Summary ---
Author Organization [facility] Address [address] [facility] [address] [place] [address] Care Team Providers Care Core Analyst Name Role Phone Regino Coleman MD Primary Care Provider [phone] Allergies Active Allergy Reactions Criticality Noted Date [...] initially though review of the pathology by [facility], Department of Pathology suggests that it [...] date. Immunizations Immunization Administration Dates Next Due Editorially SARS-COV-2 12/14/2020 [employer] SARS-COV-2 08/06/2021 Pneumococcal Conjugate 13-Valent 12/29/2019 Family [...] age to complete this topic Insurance Medicare [facility] Medicare [facility] Care Teams Core Analyst Relationship Specialty Start Date End Date Regino Coleman MD [address] RICKY CARO PCP - General 10/21/20
--- OUTSIDE RECORDS SUMMARY | 2025-06-18 12:29 | XMS_ITS | Patient Health Record ---
[facility] Address [address] [place] [address] Care Team Providers Care Senior Financial Analyst Name Role Phone Jr Hogue Primary Care Provider Black, Aye Unavailable [phone] Allergies Allergen (clinical drug ingredient) Drug/Non Drug Allergy documented on EMR Reaction Allergy Type Onset Date Status Information temporarily unavailable Fentanyl Unknown Drug Allergy Active Results Component [...] primary osteoarthritis of the ankle and/or foot (129366565) Primary osteoarthrit is, left ankle and foot (M19.072) Active confirmed Vital Signs Blood pressure diastolic 75 mm Hg 05/24/2025 Height 5ft3in in 05/24/2025 Blood pressure systolic 121 mm Hg 05/24/2025 Weight 136 lbs 05/24/2025 BMI 24.09 kg/m2 05/24/2025 Procedures Procedure Date Ordered Date Performed Result Body Sit e , U7563-CGRCV/INJECT, JOINT/BURSA 08/17/2024 N/A , B9320-UBQFB/INJECT, JOINT/BURSA 05/24/2025 N/A Encounters Encounter Location Date Provider Diagnosis [facility] [address] [place] [address] 08/17/2024 Aye Black Primary osteoarthrit is, left ankle and foot M19.072 ; Joint pain M25.50 ; Neuralgia and neuritis, unspecified M79.2 ; Hypertrophy of bone, 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 and Pain in left foot M79.[address] [address] 02/12/2025 Aye Bliss Primary osteoarthrit is, left [...] Other hammer toe(s) (acquired), right foot M20.[address] [address] 05/24/2025 Aye Bliss Primary osteoarthrit is, left ankle and foot M19.072 ; Joint pain M25.50 ; Neuralgia and neuritis, unspecified M79.2 and Hypertrophy of bone, 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 [address] 06/30/2024 [facility] [address] [facility] [address] [place] [address] 12/11/[address] [address] 02/12/2025 Aye Bliss Assessments Encounter Date Diagnosis [...] X ray : Foot, right 3V 04/24/2013 91999-Avfr Destruction, 1-14 02/08/2023 72006-Gwxp Destruction, 1-14 12/08/2021, S0108-ABCSV/INJECT, JOINT/BURSA 0 04/06/2022, L1086-ZAQAT/INJECT, JOINT/BURSA 1 , W3715-OEHVZ/INJECT, JOINT/BURSA 0 02/08/2023, E6727-EBXNU/INJECT, JOINT/BURSA 1 11/02/201945273, O8557-NGZMF/INJECT, JOINT/BURSA 0 01/02/2021, B8522-LIKWG/INJECT, JOINT/BURSA 0 05/05/2021 12074, G8522-ZXGLS/INJECT, JOINT/BURSA 1 09733, R2457-QVFTZ/INJECT, JOINT/BURSA 0 12/08/2021 35746, C7330-WWMUY/INJECT, JOINT/BURSA 0 04/08/2016 78159, S0070-ZTDMS/INJECT, JOINT/BURSA 0 11/02/201690069, B9052-BDCKM/INJECT, JOINT/BURSA 0 01/26/201787413, H9332-XSOVP/INJECT, JOINT/BURSA 1 11/24/201675277, A3164-DLGSI/INJECT, JOINT/BURSA 0 12/10/201747395, Y2294-HAGBU/INJECT, JOINT/BURSA 0 03/14/201800278, F0882-NTADY/INJECT, JOINT/BURSA 1 10/29/2017 43008, Z1758-CRWKD/INJECT, JOINT/BURSA 0 12/19/2018 09727, B3539-MWCXS/INJECT, JOINT/BURSA 0 04/20/201990135, B5990-RBKVG/INJECT, JOINT/BURSA 1 10/24/2018 10806, Q0616-YLLXZ/INJECT, JOINT/BURSA 0 01/01/202067444, X7352-LIYQU/INJECT, JOINT/BURSA 0 06/21/2023 75376, U8395-NTXAK/INJECT, JOINT/BURSA 0 11/01/2023 27902, K0171-XFPCH/INJECT, JOINT/BURSA 0 02/28/202456740, N3138-KTTQP/INJECT, JOINT/BURSA 1 10/17/2023 11711, U3571-TENPS/INJECT, JOINT/BURSA 0 05/24/202530615,R3425-JCE TENDON SHEATH/LIGAMENT 0 05/02/2020 Next Appt Details Provider Name:Aye Miranda Izaiah , 08/27/2025 08:15:00 AM, [address] [place], [address], Insurance Providers Payer Name Payer Address Payer Phone Subscriber Number Group Number Insured Name Patient Relationship to Insured Coverage Start Date Coverage End Date Medicare National Govt [facility] [address] [place] [address] [id number] Rebekah Suh Self - patient is the insured [facility] ([facility]) [address] [place] [id number] [phone] [id number] Rebekah Suh Self - patient is [...] bladder prolapse 12/29/24 Hospitalization History Reason Date(Month/Year) [facility] [place] for a day bad reaction to fentanyl w hen colonoscopy was done 08/2017
--- OUTSIDE RECORDS SUMMARY | 2025-06-18 12:29 | XMS_ITS | Encounter Summary ---
Author Organization [facility] Address [address] [place] [address] Phone Care Team Providers Care Credit Associate Name Role Phone Regino Coleman MD Primary Care Provider Fallon Dillard MD Unavailable [phone] Jr Hogue MD Primary Care Provid er Encounter Details Date Type Department Care Team (Late st Contact Info) Description 09/29/2018 Procedure Pass [facility] MR Imaging, Black [address] [place] [address] Social History Tobacco Use Types Packs/Day Years [...] Contact Info) Description 08/15/2024 Procedure Pass [address] [address] 08/06/2025 9:15 AM EDT Appointment [address] [address] Ayaan Corrales MD, [place] [address], [facility] [address] [place] [address] [email or web address] 08/06/2025 10:00 AM EDT Appointment [facility], X-Ray - [facility] [address] [place] [address] Ayaan Corrales MD, MS [address] Oliveira, [facility] [address] [place] [address] [email or web address] documented as of this encounter Visit Diagnoses Not on filedocumented in this encounter Care Teams Credit Associate Relationship Specialty Start Date End Date Regino Coleman MD [address] [place] [address] PCP - General Internal Medicine 04/29/18 04/04/25 Jr Hogue MD [address] [place] [address] PCP - General Internal Medicine 04/05/25 Fallon Dillard MD [address] [place] [address] [email or web address] Referring Physician Hematology and Oncology 04/29/18 documented as of this encounter Additional Source Comments The information contained in this document represents components of the legal health record. It is not the complete legal health record.[facility]
--- OUTSIDE RECORDS SUMMARY | 2025-06-18 12:29 | XMS_ITS | Patient Health Record ---
Author Organization [facility] Address [address] [place] [address] Care Team Providers Care Director General Name Role Phone DESHAUN OROURKE Primary Care Provider Amilcar Santiago Unavailable [phone] Allergies No Known Allergies Results Component Value Reference Range Notes Calprotectin, Fecal Reviewed date:07/21/2024 12:26:40 PM Interpretation: Performing Lab:[facility], [address] [place] [address] Notes/Report: Calprotectin, Fecal 10 Reference Range: <50 [...] borderline values. THIS TEST WAS PERFORMED AT: [facility] [address] [place] [address] RAFFY WITT MD,PHD,CHITRA GI PANEL Reviewed date:07/08/2024 08:13:38 PM Interpretation: Performing Lab:[facility], [address] [place] [address] Notes/Report: Campylobacter Not Detected Not Detect. Plesiomonas [...] is performed by Multiplexed PCR, utilizing the [employer] Array. Complete Blood Count Auto Di ff Reviewed date:07/06/2024 12:32:00 PM Interpretation: Performing Lab:[facility], [address] [place] [address], [place] [address] Notes/Report: White Blood Count 7.2 4.8-10.8 X10*3/uL [...] te Reviewed date:07/06/2024 04:52:01 PM Interpretation: Performing Lab:[address] [address] Notes/Report: Erythrocyte Sedimentation Rate 8 0-20 MM/HR Patients with polycythemia and many hemoglobin abnormalities may have depressed sed rates whereas patients with anemia may have elevated sed rates. C Reactive Protein Reviewed date:07/06/2024 04:51:54 PM Interpretation: Performing Lab:[address] [address] Notes/Report: C Reactive Protein < 0.10 < or = 0.50 mg/dL Leukocytes Stool Qualitative Reviewed date:07/08/2024 08:12:59 PM Interpretation: Performing Lab:[address] [address] Notes/Report: Leukocytes Stool Qualitative NEGATIVE NEGATIVE CDiff Gene PCR Reviewed date:07/08/2024 08:12:52 PM Interpretation: Performing Lab:[facility], [address] [place] [address] Notes/Report: CDiff Gene PCR NEGATIVE Negative If C. difficile strongly suspected despite one negative test, a second test may be sent vs. empiric treatment for C. difficile infection. Complete Blood Count Auto Di ff Reviewed date:08/01/2024 12:13:53 PM Interpretation: Performing Lab:[facility], [address] [place] [address] Notes/Report: White Blood Count 7.1 4.8-10.8 X10*3/uL [...] Status Risk Notes Problem Irritable bowel syndrome (35188959) Irritable bowel syndrome (K58.9) Active confirmed Problem 189350685 Encounter for screening for malignant neoplasm of colon (Z12.11) Active confirmed Problem Diarrhea (27381508) Diarrhea (R19.7) Active con firmed Problem Change in bowel habit (67766293) Change in bowel habits (R19.4) Active confirmed Problem Screening for malignant neoplasm of rectum (224375023) Encounter for screening for malignant neoplasm of rectum (Z12.12) Active confirmed Problem 89566670 Blood in stool (K92.1) Active confirmed Problem 388482234 Gastroesophageal reflux disease without esophagitis (K21.9) Active confirmed Problem 159799761 Gastroesophageal reflux disease, esophagitis presence not specified (K21.9) Active confirmed Problem Pancreatic cyst (08826944) 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) Active confirmed Problem 06597584 Constipation, unspecified constipation type (K59.00) Active confirmed Problem 366491591 Abdominal pain, left lower quadrant (R10.32) Active confirmed Problem Gastroesophageal reflux disease (660861904) GERD (gastroesophageal reflux disease) (K21.9) Active confirmed Problem Irritable bowel syndrome characterized by constipation (292546253) Irritable bowel syndrome with constipation (K58.1) Active confirmed Problem Irritable bowel syndrome (08022353) Irritable bowel syndrome with both constipation and diarrhea (K58.2) Active confirmed Problem Thrombocytosis (disorder) (3536634) Thrombocytosis, unspecified (D75.839) Active confirmed Problem Neoplasm of digestive system (292713745) IPMN (intraductal papillary mucinous neoplasm) (D49.0) Active [...] Provider Diagnosis [facility] [address] [place] [address] 09/28/2024 Amilcar Sosa Gastroesophageal ref lux disease, esophagitis presence not specified K21.9 ; Irritable bowel syndrome with constipation K58.1 ; Encounter for screening for malignant neoplasm of colon Z12.11 ; Constipation, unspecified constipation type K59.00 and Pancreatic cyst K86.2 [place] [address] [place] [address] 04/03/2025 Amilcar Sosa Change in bowel habi ts R19.4 ; Irritable bowel syndrome with both constipation and diarrhea K58.2 ; GERD (gastroesophageal reflux disease) K21.9 and IPMN (intraductal papillary mucinous neoplasm) D49.0 [facility] [address] [place] [address] 06/28/2024 Amilcar Sosa [facility] [address] [place] [address] 07/05/2024 Amilcar Sosa Diarrhea R19.7 [facility] [address] [place] [address] 07/10/2024 Amilcar Sosa Diarrhea R19.7 and Thrombocytosis, unspecified D75.839 [facility] [address] [place] [address] 07/20/2024 Amilcar Sosa [facility] [address] [place] [address] 09/28/2024 Amilcar Sosa Assessments Encounter Date Diagnosis [...] will be having it done up at [facility] as it is ordered by her [place] physicians in regard to the follow-up of [...] will be having it done up at [facility] as it is ordered by her [place] physicians in regard to the follow-up of [...] will be having it done up at [facility] as it is ordered by her [place] physicians in regard to the follow-up of [...] that was to occur. I did advise Codrell to contact me prior to the procedures [...] will be having it done up at [facility] as it is ordered by her [place] physicians in regard to the follow-up of [...] (ICD-10 - K86.2) Need MRI report from [facility] from 06/2024 Overall, Cordell appears well. [...] Quintero Sheila , 07/04/2025 10:20:00 AM, [address] [place] [address] , [place], [place], [id number], Provider Name:Amilcar Quintero Sheila , 09/27/2025 09:00:00 AM, [address] [place] [address], [address], [place], [address], Insurance Providers Payer Name Payer Address Payer Phone Subscriber Number Group Number Insured Name Patient Relationship to Insured Coverage Start Date Coverage End Date MEDICARE OF [place] [address] [place] [address] [id number] LENA Wright CORDELL Self - patient is the insured [facility] ([facility] [address] [place] [address] [phone] [id number] CORDELL ORDAZ Self - patient is the insured Medical (General) History Medical History History ICD Code Screening colonoscopy 05-24-2009--negativ e EGD 01-05-2002 and in 11/2016--small HH, n o esophagitis, no Hernandes's Asthma--presently asymptomatic 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 Dillard Mitral valve prolapse Lyme's disease/Fibromyalgia--Amitryptile ne and Gabapentin Migraines-on Propranolol Hyperlipidemia Arthritis in left foot--Meloxicam/Cortis one injections Denies SD,DM,CVA,renal disease Renal cancer with surgery in 06/2018 [...] 11/18/2022 [facility] Corrales 06/2018 Uterine polyps Breast biopsy -2013--breast-left--LCIS Left ovary removed and appy Broken ankle/beau and screws right Cyst removed both breasts Tonsillectomy
== END 2025-06-18 10:52 | disposition home or self-care (01) ==
LOC: HO.HMGAL 10:28
PROVIDERS: PCP Internal Medicine; Visit Provider Registered Nurse Emergency
DX: J30.89 Other allergic rhinitis (principal)
CPT/HCPCS: 95117; 95165

== ENCOUNTER 2025-07-02 12:51 | Outpatient (REF) | payer MEDICARE, OTHER, SELFPAY ==
--- NOTE | ~2025-07-02 | XR_ITS ---
CLINICAL HISTORY: M25.511 - Pain in right shoulder 3 view right shoulder 3 view left shoulder Comparison: DX/SR - XR SHOULDER 2 OR MORE VIEWS LEFT - 04/09/23 12:00 EDT Findings: No fractures or dislocations. Mild narrowing in the bilateral glenohumeral joints with minor degenerative spurring. Moderately severe narrowing of the right acromioclavicular joint with prominent degenerative spurring. Mildly progressive moderate narrowing of the left acetabulofemoral joint with mild degenerative spurring. No erosions. No radiopaque foreign body. Small bone island versus nodular trabecular pattern in the right inferior bony glenoid. IMPRESSION: 1. No acute process in the right or left shoulder. 2. Moderately severe right and moderate left AC joint degenerative changes. This document has been electronically signed by: Niurka Stein DO on 07/03/2025 13:43:49
--- OUTSIDE RECORDS SUMMARY | 2025-07-02 15:17 | XMS_ITS | Encounter Summary ---
Author Organization [facility] Address [address] [place] [id number] Phone Support
== END 2025-07-02 12:52 | disposition home or self-care (01) ==
LOC: HO.HOSX 12:51
DX: M75.21 Bicipital tendinitis, right shoulder (principal); M19.011 Primary osteoarthritis, right shoulder; M19.012 Primary osteoarthritis, left shoulder
CPT/HCPCS: 73030; 99212

== ENCOUNTER 2025-07-02 13:20 | Outpatient (AMB) | payer MEDICARE, OTHER, SELFPAY ==
[2025-07-02 13:31] VITALS: BMI 24.3
--- NOTE | 2025-07-02 13:31 | A.OFFVIS_ITS ---
Vital Signs 07/02/25 13:31 Height 5 ft 3 in Weight 137 lb BMI 24.3 Intake Visit Reasons: Newprob-B/L shoulder pain/right side worse Intake Note: Rebekah is a 69 year old right hand dominant female who presents today for a New Problem Visit for evaluation of Bilateral Shoulder Pain, Right greater than Left. Patient reports pain began over 6 months, now primarily affecting her right shoulder blade and deltoid area. She is experiencing pain when abducting her right arm or bringing it to her back. She it taking Tylenol for other health problems without relief of her shoulder pain. She shares she cannot take NSAID's as she is status post nephrectomy, 2018. She denies any known injuries to the area. She denies previous surgeries to the right shoulder. Allergies fentanyl (FENTANYL) Allergy (Severe, Verified 07/02/25 13:32) SEVERE VOMITING, severe headache, vomiting sulfamethoxazole (From BACTRIM) Allergy (Severe, Verified 07/02/25 13:32) CANNOT TAKE-ONLY HAS ONE KIDNEY trimethoprim (From BACTRIM) Allergy (Severe, Verified 07/02/25 13:32) CANNOT TAKE-ONLY HAS ONE KIDNEY azithromycin (AZITHROMYCIN) Allergy (Intermediate, Verified 07/02/25 13:32) DIARRHEA HPI HPI Newprob-B/L shoulder pain/right side worse: Details: Rebekah is a 69 year old right hand dominant female who presents today for a New Problem Visit for evaluation of Bilateral Shoulder Pain, Right greater than Left. Patient reports pain began over 6 months, now primarily affecting her right shoulder blade and deltoid area. She is experiencing pain when abducting her right arm or bringing it to her back. She it taking Tylenol for other health problems without relief of her shoulder pain. She shares she cannot take NSAID's as she is status post nephrectomy, 2018. She denies any known injuries to the area. She denies previous surgeries to the right shoulder. 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 History of kidney cancer Chronic kidney disease Migraines Osteoarthritis Fibromyalgia Hypercholesteremia Surgical History History of bladder surgery History of colonoscopy (~11/02/17) History of hernia repair H/O hysterectomy for benign disease Hx of surgical procedure (~08/03/23) H/O vaginal hysterectomy History of incisional hernia repair (~11/29/19) History of nephrectomy, left (~06/2018) Status post biopsy of kidney (~04/2018) History of breast biopsy (~05/11/14) History of tonsillectomy and adenoidectomy S/P removal of left ovary (~1978) History of removal of cyst (~1972) History of ankle surgery (~2003) H/O kidney removal History of breast surgery Hx of tonsillectomy Family History Father Stomach cancer Prostate cancer High cholesterol Sister Stroke Mother High cholesterol CLL (chronic lymphocytic leukemia) Maternal Aunt Breast cancer Social History Household Members: Spouse Housing: House Are you a primary care information associate to a significant other at home: No Do you presently have visiting nurse or other home services: No Alcohol intake: current Alcohol intake frequency: holidays/special occasions only Patient Tobacco Use Status: Never used Tobacco e-Cigarette/Vaping Use: Never Used Advance Directives Date on File: 07/25/20 service: No Current occupational status: 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 Sexual orientation: Straight/Heterosexual Gender identity: Female Cognitive needs: No Hearing needs: Yes (bilateral hearing aids) Vision needs: Yes (rx glasses) Female Reproductive History Menstrual Age of Menarche: 10 Review of Systems Const All systems reviewed & are unremarkable except as noted in HPI and below Physical Exam Vital Signs: BMI result Body Mass Index 24.3 Extrem Other: Patient's bilateral shoulders normal to inspection No erythema, ecchymosis, edema noted No lacerations, abrasions, open areas No evidence of infection Patient reports tenderness to palpation of the bicipital groove of right shoulder No tenderness to palpation of bicipital groove of the left shoulder No further tenderness to palpation of bilateral shoulders noted Patient is able to forward flex bilateral shoulders to approximately 100 degrees and externally rotate to 60 degrees bilaterally without difficulty 5/5 strength empty can bilaterally 5/5 strength belly press bilaterally 5/5 strength lift-off bilaterally Mildly positive [place] on the right, negative on the left Distal sensation intact Capillary refill brisk Results Reviewed Results Reviewed: X-rays obtained in the office today and independently reviewed by me, Lion Rodríguez PA-C, demonstrate no fracture or acute bony abnormality of bilateral shoulder, however there is moderate AC joint arthritis of bilateral shoulders. Assessment & Plan Assessment & Plan (1) Biceps tendonitis on right: Code(s): M75.21 - Bicipital tendinitis, right shoulder Category: Medical (2) Bilateral acromioclavicular joint arthritis: Code(s): M19.011 - Primary osteoarthritis, right shoulder; M19.012 - Primary osteoarthritis, left shoulder Category: Medical Plan 1. Biceps tendinitis of the right 2. Bilateral AC joint arthritis Patient is educated about these conditions Patient is educated about the typical treatment of recovery course At this time, PT referral was placed for range of motion, strengthening, stabilization of bilateral shoulders in the setting of bilateral AC joint arthritis and right bicipital tendinitis Patient is educated that injections are also a treatment options for these conditions, but declines at this time, stating she would like to try therapy 1st Follow-up as needed with any acute concerns Orders: Orders XR Shoulder Rupesh min 2V 07/02/25 M25.511 - Pain in right shoulder, M25.512 - Pain in left shoulder PT Evaluation and Treatment 07/02/25 M75.21 - Bicipital tendinitis, right shoulder Coding Level of Care Code New Pt Level 3 (90404) Diagnoses Biceps tendonitis on right M75.21 Bilateral acromioclavicular joint arthritis M19.011; M19.012
== END 2025-07-02 13:54 | disposition home or self-care (01) ==
LOC: HO.HOS 13:20
PROVIDERS: PCP Internal Medicine
DX: M75.21 Bicipital tendinitis, right shoulder (principal); M19.011 Primary osteoarthritis, right shoulder; M19.012 Primary osteoarthritis, left shoulder
CPT/HCPCS: 99213

== ENCOUNTER → 2025-07-02 13:22 | Outpatient (BNV) | payer MEDICARE, OTHER, SELFPAY | PROVIDERS: Visit Provider Radiology Diagnostic Radiology | DX: M19.011 Primary osteoarthritis, right shoulder (principal); M19.012 Primary osteoarthritis, left shoulder | CPT/HCPCS: 73030 ==

== ENCOUNTER 2025-07-04 07:24 | Day surgery (SDC) | payer MEDICARE, OTHER, SELFPAY ==
--- OUTSIDE RECORDS SUMMARY | 2024-12-11 04:15 | XMS_ITS ---
Author Organization [facility] Address [address] [place] [address] Care Team Providers Care Plating Machine Operator Name Role Phone Lennie, Kartik Primary Care Provider [phone] Black, Aye Unavailable [phone] Allergies Allergen (clinical drug ingredient) Drug/Non Drug [...] Negative Encounters Encounter Location Date Provider Diagnosis [facility] [place] [address] [place] [address] 12/11/2024 Aye Bliss Plan Of Treatment Next Appt Details Provider Name:Aye Bliss , 05/24/2025 10:00:00 AM, [address] [place], [address], Progress Notes * Ashvin HAHNOB: [birth year] (69 yo F)Acc No.[id number]:12/11/2024 Progress Note Patient: Rebekah POLO Provider: Alicja Bliss DPM :1955 A ge:69 Y S ex:Female Date:12/11/2024 Address:[address] [place] [address] Pcp:Jr Hogue Subjective: * Chief Complaints: * [...] denies.? C ardiovascular: Pacemaker d enies. M TOP KNITTER a dmits. W PW d enies. C [...] eakness d enies. P odiatric: Comments S [facility] for comments. I nteg.: Marques d [...] 0 12/11/2024 Generated for Chandler bentley/Brennon/Nirav on: 05/07/2025 10:02 AM EDT
--- OUTSIDE RECORDS SUMMARY | 2025-05-07 10:02 | XMS_ITS | Encounter Summary ---
Author Organization [facility] Address [address] [place] [address] Phone Care Team Providers Care Safety Glass Installer Name Role Phone Regino Coleman MD Primary Care Provider Fallon Dillard MD Unavailable [phone] Jr Hogue MD Primary Care Provid er Encounter Details Date Type Department Care Team (Late st Contact Info) Description 06/16/2018 Procedure Pass [facility] [address] [place] [address] Social History Tobacco Use Types Packs/Day Years Used Date Smoking Tobacco: Never Smokeless Tobacco: Never Alcohol Use Standard Drinks/Week Comments No 0 (1 standard drink = 0.6 oz pur e alcohol) Comments Unknown Sex and Gender Information Value Date Recorded Sex Assigned at Female 06/08/2018 12:14 PM EDT Legal Sex Female 11:57 AM EDT Gender Identity Female 06/08/2018 12:14 PM EDT Sexual Orientation Straight 06/08/2018 12 :14 PM EDT documented as of this encounter Plan of Treatment Upcoming Encounters Date Type Department Care Team (Late st Contact Info) Description 08/15/2024 Procedure Pass [address] [address] 08/06/2025 9:15 AM EDT Appointment [address] [address] Ayaan Corrales MD, [place] [address] [place] [address] [facility] [address] [place] [address] [email or web address] 08/06/2025 10:00 AM EDT Appointment [facility], X-Ray - [address] [address] Ayaan Corrales MD, [place] [address], [facility] [address] [place] [address] [email or web address] documented as of this encounter Visit Diagnoses Not on filedocumented in this encounter Care Teams Safety Glass Installer Relationship Specialty Start Date End Date Regino Coleman MD [address] [place] [address] PCP - General Internal Medicine 04/29/18 04/04/25 Jr Hogue MD [address] [place] [address] PCP - General Internal Medicine 04/05/25 Fallon Dillard MD [address] [place] [address] [email or web address] [email or web address] Referring Physician Hematology and Oncology 04/29/18 documented as of this encounter Additional Source Comments The information contained in this document represents components of the legal health record. It is not the complete legal health record.[facility]
--- OUTSIDE RECORDS SUMMARY | 2025-05-07 10:02 | XMS_ITS | Encounter Summary ---
Author Organization [facility] Address [address] [place] [address] Phone Care Team Providers Care Financial Analysis Manager Name Role Phone Regino Coleman MD Primary Care Provider [phone] Encounter Details Date Type Department Care Team (Late st Contact Info) Description 11/25/2022 Telephone [facility] [address] [place] [address] Ying Medrano Social History Tobacco [...] called to relay that Dr. Reyes from [facility] had recently put a stent in [...] on filedocumented in this encounter Care Teams Financial Analysis Manager Relationship Specialty Start Date End Date Regino Coleman MD [address] [place] PCP - General 10/21/20 documented as of this encounter
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
[2025-07-02 14:04] VITALS: BMI 23.3
--- NOTE | 2025-07-02 14:17 | HO.ANESPROP2 ---
Documented by User: Sue Fermin NP 07/02/25 14:18 HPI - Anesthesia Eval Consult details Narrative: 69yo F for Upper Endoscopy and Colonoscopy PMFSH Active Problems Active Problems: All Active Problems Biceps tendonitis on right (Acute) Bronchitis (Acute) Sinusitis (Acute) Leukocytosis (Acute) Productive cough (Acute) Mass of joint of left hand (Acute) Right-sided low back pain with right-sided sciatica (Acute) Liver mass (Acute) History of hernia repair (Acute) At high risk for fracture (Acute) CKD (chronic kidney disease) stage 3, GFR 30-59 ml/min (Acute) History of nephrectomy, left (Acute ~06/2018) Chronic kidney disease (Acute) Well woman exam (Acute) Bursitis of left shoulder (Acute) Early satiety (Acute) Unsatisfactory cervical Papanicolaou smear (Acute) Cervical myofascial pain syndrome (Acute) Cervical spondylosis (Acute) Lumbar spondylosis (Acute) Unsatisfactory cervical Papanicolaou smear (Acute) Encounter for annual routine gynecological examination (Acute) Nontraumatic subluxation of extensor tendon at metacarpophalangeal joint of right hand (Acute) Nontraumatic subluxation of extensor tendon at metacarpophalangeal joint of left hand (Acute) Arthritis of carpometacarpal (CMC) joint of left thumb (Acute) Mass of soft tissue of hip (Acute) Breast CA (Chronic) Cystocele with uterine prolapse (Acute) Ventral hernia (Acute) Family history of prostate cancer (Acute) 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 (Acute) Osteoarthritis (Acute) Prolapse of uterus (Acute) Vaginal prolapse (Acute) Incisional hernia (Acute) Past Medical History Medical History Liver mass Ventral hernia Family history of prostate cancer 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 Prolapse of uterus Vaginal prolapse Incisional hernia 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 History of kidney cancer Chronic kidney disease Migraines Osteoarthritis Fibromyalgia Hypercholesteremia Family History Family History Father Stomach cancer Prostate cancer High cholesterol Sister Stroke Mother High cholesterol CLL (chronic lymphocytic leukemia) Maternal Aunt Breast cancer Family history of problems with anesthesia: No Surgical History Surgical History History of bladder surgery History of colonoscopy (~08/12/17) History of hernia repair H/O hysterectomy for benign disease Hx of surgical procedure (~08/03/23) H/O vaginal hysterectomy History of incisional hernia repair (~11/29/19) History of nephrectomy, left (~06/2018) Status post biopsy of kidney (~04/2018) History of breast biopsy (~05/11/14) History of tonsillectomy and adenoidectomy S/P removal of left ovary (~1978) History of removal of cyst (~1972) History of ankle surgery (~2003) H/O kidney removal History of breast surgery Hx of tonsillectomy History of Problems with Anesthesia: No Social History Social History Household Members: Spouse Housing: House Are you a primary human services care specialist to a significant other at home: No Do you presently have visiting nurse or other home services: No Alcohol intake: current Alcohol intake frequency: holidays/special occasions only Patient Tobacco Use Status: Never used Tobacco e-Cigarette/Vaping Use: Never Used Have you been hit, kicked, punched, or otherwise hurt by someone within the past year? 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 Sexual orientation: Straight/Heterosexual Gender identity: Female Cognitive needs: No Hearing needs: Yes (bilateral hearing aids) Vision needs: Yes (rx glasses) Meds Allergies Allergy/AdvReac Type Severity Reaction Status Date / Time fentanyl (FENTANYL) Allergy Severe SEVERE Verified 07/02/25 13:32 VOMITING, severe headache, vomiting sulfamethoxazole (From Allergy Severe CANNOT Verified 07/02/25 13:32 BACTRIM) TAKE-ONLY HAS ONE KIDNEY trimethoprim (From BACTRIM) Allergy Severe CANNOT Verified 07/02/25 13:32 TAKE-ONLY HAS ONE KIDNEY azithromycin (AZITHROMYCIN) Allergy Intermediate DIARRHEA Verified 07/02/25 13:32 Home Medications ?Medication ?Instructions ?Recorded ?Confirmed ?Last Taken ?Type propranolol 10 mg tablet 10 mg PO DAILY 08/14/20 06/04/25 08/03/23 History calcium 500 mg (as 1 tab PO DAILY 09/16/20 07/02/25 Unknown History carbonate)-vitamin D3 3.125 mcg (125 unit) tablet aghmusfbcast-lemmvgkk-uohiak tablet 1 tab PO DAILY 09/16/20 07/02/25 Unknown History omeprazole magnesium 20 mg 20 mg PO DAILY 09/16/20 07/02/25 08/03/23 History tablet,delayed release (Prilosec OTC) polyethylene glycol 3350 17 gram 17 g PO DAILY 01/22/21 07/02/25 Unknown History oral powder packet (Miralax) psyllium husk 0.4 gram capsule 0.4 g PO DAILY 01/22/21 06/04/25 Unknown History (Metamucil) atorvastatin 20 mg tablet (Lipitor) 20 mg PO DAILY 06/07/24 07/02/25 Unknown History fluticasone propionate 50 1 spray intranasal DAILY PRN Nasal 05/15/25 07/02/25 Unknown History mcg/actuation nasal Congestion spray,suspension Exam Height,Weight and Vital Signs: Height 5 ft 4 in Weight 61.689 kg Assessment and Plan Assessment Anesthesia Assessment: Chart Reviewed Final Anesthetic Review Family History of Problems with Anesthesia: No History of Problems with Anesthesia: No Documented by User: Amanda Ramires MD 07/04/25 08:26 [facility] Past Medical History Medical History Liver mass Ventral hernia Family history of prostate cancer 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 Prolapse of uterus Vaginal prolapse Incisional hernia 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 History of kidney cancer Chronic kidney disease Migraines Osteoarthritis Fibromyalgia Hypercholesteremia Family History Family History Father Stomach cancer Prostate cancer High cholesterol Sister Stroke Mother High cholesterol CLL (chronic lymphocytic leukemia) Maternal Aunt Breast cancer Surgical History Surgical History History of bladder surgery History of colonoscopy (~08/12/17) History of hernia repair H/O hysterectomy for benign disease Hx of surgical procedure (~08/03/23) H/O vaginal hysterectomy History of incisional hernia repair (~11/29/19) History of nephrectomy, left (~06/2018) Status post biopsy of kidney (~04/2018) History of breast biopsy (~05/11/14) History of tonsillectomy and adenoidectomy S/P removal of left ovary (~1978) History of removal of cyst (~1972) History of ankle surgery (~2003) H/O kidney removal History of breast surgery Hx of tonsillectomy Social History Social History Household Members: Spouse Housing: House Are you a primary human services care specialist to a significant other at home: No Do you presently have visiting nurse or other home services: No Alcohol intake: current Alcohol intake frequency: holidays/special occasions only Patient Tobacco Use Status: Never used Tobacco e-Cigarette/Vaping Use: Never Used Have you been hit, kicked, punched, or otherwise hurt by someone within the past year? 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 Sexual orientation: Straight/Heterosexual Gender identity: Female Cognitive needs: No Hearing needs: Yes (bilateral hearing aids) Vision needs: Yes (rx glasses) Meds Allergies Allergy/AdvReac Type Severity Reaction Status Date / Time fentanyl (FENTANYL) Allergy Severe SEVERE Verified 07/02/25 13:32 VOMITING, severe headache, vomiting sulfamethoxazole (From Allergy Severe CANNOT Verified 07/02/25 13:32 BACTRIM) TAKE-ONLY HAS ONE KIDNEY trimethoprim (From BACTRIM) Allergy Severe CANNOT Verified 07/02/25 13:32 TAKE-ONLY HAS ONE KIDNEY azithromycin (AZITHROMYCIN) Allergy Intermediate DIARRHEA Verified 07/02/25 13:32 Home Medications ?Medication ?Instructions ?Recorded ?Confirmed ?Last Taken ?Type propranolol 10 mg tablet 10 mg PO DAILY 08/14/20 06/04/25 08/03/23 History calcium 500 mg (as 1 tab PO DAILY 09/16/20 07/02/25 Unknown History carbonate)-vitamin D3 3.125 mcg (125 unit) tablet efcfkcfnfzoj-wzrzoqaj-ajrmku tablet 1 tab PO DAILY 09/16/20 07/02/25 Unknown History omeprazole magnesium 20 mg 20 mg PO DAILY 09/16/20 07/02/25 08/03/23 History tablet,delayed release (Prilosec OTC) polyethylene glycol 3350 17 gram 17 g PO DAILY 01/22/21 07/02/25 Unknown History oral powder packet (Miralax) psyllium husk 0.4 gram capsule 0.4 g PO DAILY 01/22/21 06/04/25 Unknown History (Metamucil) atorvastatin 20 mg tablet (Lipitor) 20 mg PO DAILY 06/07/24 07/02/25 Unknown History fluticasone propionate 50 1 spray intranasal DAILY PRN Nasal 05/15/25 07/02/25 Unknown History mcg/actuation nasal Congestion spray,suspension Exam Airway Mallampati Class: II TM Dist: >3cm Neck ROM: Full Heart: rrr Lungs: cta Assessment and Plan Final Anesthetic Review NPO: Yes ASA Class: II Final Preanesthetic Review: No Changes in Pt Med Stat, Meds/Allgs Chart Reviewed and Consent Obtained/Reviewed Patient Risk: Low Procedure Risk: Intermediate Anesthetic Plan Anesthetic Plan: MAC: Disposition: Standard PACU
[2025-07-04 07:54] VITALS: BP 141/79; PULSE 94; RESP 12; TEMP 37.2; O2SAT 97; BMI 23.3
[2025-07-04] MEDS: Lactated Ringers 1,000 ML 100 ML IVCONT (07:57)
[2025-07-04 10:18] VITALS: BP 111/58; PULSE 93; RESP 16; TEMP 36.5; O2SAT 98
--- NOTE | 2025-07-04 10:22 | PM.OP ---
Brief Operative Note Date of Service: 07/04/25 Pre-op diagnosis: GERD, Change in bowel habits Post-op diagnosis: other (Hiatal hernia, R/O Celiac disease, R/O microscopic colitis) Procedure: EGD with biopsies, Colonoscopy to the cecum with biopsies Surgeon: Amilcar Sosa MD Anesthesia: MAC Was an Weight Loss Sales Consultant used for this Procedure?: No Estimated blood loss (mL): 2.0 Pathology: other (A. 2nd/3rd portions of duodenum B. Gastric antrum C. Ascending colon D. Descending colon) Condition: stable Disposition: PACU
[2025-07-04 10:33] VITALS: BP 131/65; PULSE 78; RESP 18; TEMP 36.7; O2SAT 96
--- NOTE | 2025-07-04 10:48 | OP_ITS ---
DATE OF SERVICE: 07/04/2025 SURGEON: Amilcar Sosa MD INDICATIONS: The patient presents for evaluation of gastroesophageal reflux, abdominal discomfort, change in bowel habits. Full consent has been obtained from her for this, including risks of bleeding and perforation. PREOPERATIVE DIAGNOSIS: POSTOPERATIVE DIAGNOSIS: PROCEDURE PERFORMED: Esophagogastroduodenoscopy with biopsies, and colonoscopy to the cecum with biopsy. ESTIMATED BLOOD LOSS: COMPLICATIONS: ANESTHESIA: Medication used; monitored anesthesia care. ASSISTANTS: SPECIMENS: PREOPERATIVE DIAGNOSES: Gastroesophageal reflux, abdominal discomfort, change in bowel habits. POSTOPERATIVE DIAGNOSES: Gastroesophageal reflux, abdominal discomfort, change in bowel habits, hiatal hernia, rule out celiac disease, mild gastritis, rule out microscopic colitis, diverticulosis, and internal hemorrhoids. DESCRIPTION OF PROCEDURE: The patient was placed in the left lateral decubitus position. The Olympus video gastroscope was passed in the posterior oropharynx and upper esophagus under direct vision. The scope was passed slowly to the distal esophagus. The gastroesophageal junction was seen at 33 cm. This appeared regular and without any sign of inflammation or Hernandes's mucosa. The scope easily entered into the stomach. There was a moderate-sized hiatal hernia. The hiatal hernia mucosa appeared normal. The scope was advanced to the pylorus and the duodenum was cannulated to the descending portion. The duodenum including the bulb appeared normal without mass or ulceration. Biopsies were obtained from the 2nd and 3rd portions of duodenum. The scope was withdrawn back into the stomach. The gastric antrum had some areas of erythema, but no erosions or ulceration. There was good peristalsis. Biopsies were obtained from the antrum. The scope was retroflexed visualizing the proximal stomach carefully, which appeared normal, without any sign of mass or ulceration. The scope was straightened and withdrawn back to the esophagus. The esophageal mucosa appeared normal. Scope was withdrawn from the patient. She was turned around for the colonoscopy. The digital rectal exam revealed some external hemorrhoids. The Olympus video pediatric colonoscope was entered into the rectum and advanced to the cecum with the assistance of abdominal wall pressure. Once in the cecum, I did identify normal-appearing cecal pouch with appendiceal orifice and ileocecal valve. The entire cecum and ileocecal valve appeared normal. The scope was then slowly withdrawn assessing all mucosal surfaces carefully.. I did not visualize any sign of polyps, colitis, nor angiodysplasia. Random biopsies were obtained in the ascending and descending colon. There was a moderate amount of sigmoid diverticulosis. In the rectum, scope was retroflexed visualizing internal hemorrhoids, but no other pathology. The rectal mucosa appeared normal. The scope was straightened and withdrawn from the patient. She tolerated procedure well and was returned to recovery area in stable condition. IMPRESSION: 1. Moderate-sized hiatal hernia. 2. Minimal changes of gastritis. 3. Rule out celiac disease. 4. Rule out microscopic colitis. 5. Diverticulosis. 6. Internal and external hemorrhoids. PLAN: The results of the pathology will be checked. At this point, she will continue her current regimen of Prilosec once or twice a day as needed for reflux symptoms. As long as she is doing well in this regard, I do not think she would need any other intervention such as hiatal hernia surgery. Given her age, 2 negative colonoscopies in the past and no family history of colon cancer, I do not think she needs any further screening colonoscopies. She was advised to continue symptomatic treatment for irritable bowel syndrome with probiotic, simethicone, and a lactose-free diet. She will have an upcoming MRI of the abdomen for followup of her previous renal cancer and pancreatic cyst. She will see me in 1 year for followup. MD BENJAMIN Best/JANELLE / [id number] MTDD
== END 2025-07-04 11:00 | disposition home or self-care (01) ==
PROVIDERS: PCP Internal Medicine; Visit Provider Internal Medicine
PROC: (CPT 45380; principal; 2025-07-04 08:30)
DX: R19.4 Change in bowel habit (principal); Z80.0 Family history of malignant neoplasm of digestive organs; K58.2 Mixed irritable bowel syndrome; K57.30 Diverticulosis of large intestine without perforation or abscess without bleeding; K64.8 Other hemorrhoids; K64.4 Residual hemorrhoidal skin tags; R10.9 Unspecified abdominal pain; D49.0 Neoplasm of unspecified behavior of digestive system; K21.9 Gastro-esophageal reflux disease without esophagitis; K29.60 Other gastritis without bleeding; K44.9 Diaphragmatic hernia without obstruction or gangrene; K80.20 Calculus of gallbladder without cholecystitis without obstruction; K86.2 Cyst of pancreas; E78.5 Hyperlipidemia, unspecified; J45.909 Unspecified asthma, uncomplicated; Z86.000 Personal history of in-situ neoplasm of breast; M79.7 Fibromyalgia; G43.909 Migraine, unspecified, not intractable, without status migrainosus; Z85.528 Personal history of other malignant neoplasm of kidney; Z79.899 Other long term (current) drug therapy; Z88.1 Allergy status to other antibiotic agents; Z88.5 Allergy status to narcotic agent; Z88.2 Allergy status to sulfonamides; Z98.890 Other specified postprocedural states
CPT/HCPCS: 45380; 43239; 88305; 88313; 88342; J2003; J2704

== ENCOUNTER 2025-07-16 10:51 | Outpatient (AMB) | payer MEDICARE, OTHER, SELFPAY ==
--- OUTSIDE RECORDS SUMMARY | 2024-07-03 05:15 | XMS_ITS ---
Author Organization [facility] Address [address] [place] [phone] Care Team Providers Care Bag Shop Worker Name Role Phone Jr Hogue Primary Care Provider [phone] Aye Bliss [phone] Encounters Encounter Location Date Provider Diagnosis [address] [address] 07/03/2024 Aye Bliss Plan Of Treatment Next Appt Details Provider Name:Aye A Izaiah , 08/27/2025 08:15:00 AM, [address] [place] [address], [phone], Progress Notes * Alexander HAHNeDOB: [birth year] (69 yo F)Acc No.[id number]:07/03/2024 Progress Note Patient: Rebekah POLO Provider: Alicja Bliss DPM :1955 A ge:68 Y S ex:Female Date:07/03/2024 Address:[address] [place] [address] [place], [phone] Pcp:Jr Hogue Subjective: * Chief Complaints: * [...] 0 07/03/2024 Generated for Chandler Ortega/Nirav on: 01:09 PM EDT
--- OUTSIDE RECORDS SUMMARY | 2024-12-11 04:15 | XMS_ITS ---
Author Organization [facility] Address [address] [place] [address] Care Team Providers Care Steelworker Name Role Phone Lennie, Kartik Primary Care Provider [phone] Black, Aye Unavailable [phone] Allergies Allergen (clinical drug ingredient) Drug/Non Drug [...] Negative Encounters Encounter Location Date Provider Diagnosis [facility] [place] [address] [place] [address] 12/11/2024 Aye Bliss Plan Of Treatment Next Appt Details Provider Name:Aye Bliss , 08/27/2025 08:15:00 AM, [address] [place], [address], Progress Notes * Ashvin HAHNOB: [birth year] (69 yo F)Acc No.[id number]:12/11/2024 Progress Note Patient: Rebekah POLO Provider: Alicja Bliss DPM :1955 A ge:69 Y S ex:Female Date:12/11/2024 Address:[address] [place] [id number] Pcp:Jr Hogue Subjective: * Chief Complaints: * [...] denies.? C ardiovascular: Pacemaker d enies. 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 W PW d enies. C [...] eakness d enies. P odiatric: Comments S [facility] for comments. I nteg.: Marques d [...] 0 12/11/2024 Generated for Chandler bentley/Brennon/Nirav on: 01:08 PM EDT
--- OUTSIDE RECORDS SUMMARY | 2025-07-04 04:30 | XMS_ITS ---
Author Organization [facility] Address [address] [facility] [address] [place] [address] Care Team Providers Care Cattle Broker Name Role Phone DESHAUN OROURKE Primary Care Provider Amilcar Santiago [phone] REASON FOR VISIT gerd,IBS,change in bowel habits Encounters Encounter Location Date Provider Diagnosis [facility] [place] Out[place] [address] [place] [id number] 07/04/2025 Amilcar Sosa Plan Of Treatment Next Appt Details Provider Name:Amilcar Sosa , 09/27/2025 09:00:00 AM, [address] [place] [address], [address], [place], [address], Progress Notes * CORDELL COVARRUBIAS EDOB:[birth year] (69 yo F)Acc No.[id number]:07/04/2025 EGD and COL/MAC Patient: Kimberly JIMY CORDELL Mcnair Provider: Gary Sosa MD :1955 A ge:69 Y S ex:Female Date:07/04/2025 Address:[address] [id number] Pcp:DESHAUN OROURKE Subjective: * Chief Complaints: * [...] 0 07/04/2025 Generated for Chandler bentley/Brennon/Nirav on: 01:09 PM EDT
--- OUTSIDE RECORDS SUMMARY | 2025-07-16 13:08 | XMS_ITS | Encounter Summary ---
Author Organization [facility] Address [address] [place] [address] Phone Care Team Providers Care Social Security Assessor Name Role Phone Regino Coleman MD Primary Care Provider Fallon Dillard MD Unavailable [phone] Jr Hogue MD Primary Care Provid er Encounter Details Date Type Department Care Team (Late st Contact Info) Description 07/02/2020 Procedure Pass [address] [address] Social History Tobacco Use Types Packs/Day Years [...] st Contact Info) Description 08/15/2024 Procedure Pass [address] [address] 08/06/2025 9:15 AM EDT Appointment [address] [address] Ayaan Corrales MD, [place] 45 Regin[address] Oliveira, ASB [address] [place] [address] [email or web address] 08/06/2025 10:00 AM EDT Appointment [facility], X-Ray - [facility] [address] [place] [address] Ayaan Corrales MD, MS 45 Regin[address] [place], [facility] [address] [place] [address] [email or web address] documented as of this encounter Visit Diagnoses Not on filedocumented in this encounter Care Teams Social Security Assessor Relationship Specialty Start Date End Date Regino Coleman MD [address] [place] [address] PCP - General Internal Medicine 04/29/18 04/04/25 Jr Hogue MD [address] [place] [address] PCP - General Internal Medicine 04/05/25 Fallon Dillard MD [address] [place] [address] [email or web address] Referring Physician Hematology and Oncology 04/29/18 documented as of this encounter Additional Source Comments The information contained in this document represents components of the legal health record. It is not the complete legal health record.[facility]
--- OUTSIDE RECORDS SUMMARY | 2025-07-16 13:08 | XMS_ITS | Encounter Summary ---
Author Organization [facility] Address [address] [place] [address] Phone Care Team Providers Care Corporate Librarian Name Role Phone Regino Coleman MD Primary Care Provider Fallon Dillard MD Unavailable [phone] Jr Hogue MD Primary Care Provid er Encounter Details Date Type Department Care Team (Late st Contact Info) Description 06/15/2019 Procedure Pass [facility] MR Imaging, Black [address] [place] [address] Social History Tobacco Use Types Packs/Day Years [...] st Contact Info) Description 08/15/2024 Procedure Pass [address] [address] 08/06/2025 9:15 AM EDT Appointment [address] [address] Ayaan Corrales MD, MS 45 Regin[address] [place], ASB [address] [place] [address] [email or web address] 08/06/2025 10:00 AM EDT Appointment [facility], X-Ray - [facility] [address] [place] [address] Ayaan Corrales MD, MS 45 R[address]ira, [facility] [address] [place] [address] [email or web address] documented as of this encounter Visit Diagnoses Not on filedocumented in this encounter Care Teams Corporate Librarian Relationship Specialty Start Date End Date Regino Coleman MD [address] [place] [address] PCP - General Internal Medicine 04/29/18 04/04/25 Jr Hogue MD [address] [place] [address] PCP - General Internal Medicine 04/05/25 Fallon Dillard MD [address] [place] [address] [email or web address] Referring Physician Hematology and Oncology 04/29/18 documented as of this encounter Additional Source Comments The information contained in this document represents components of the legal health record. It is not the complete legal health record.[facility]
--- OUTSIDE RECORDS SUMMARY | 2025-07-16 13:08 | XMS_ITS | Encounter Summary ---
Author Organization [facility] Address [address] [place] [address] Phone Care Team Providers Care Cylinder Block Hole Reliner Name Role Phone Regino Coleman MD Primary Care Provider Fallon Dillard MD Unavailable [phone] Jr Hogue MD Primary Care Provid er Encounter Details Date Type Department Care Team (Late st Contact Info) Description 06/10/2021 Ancillary Orders [facility],Outside [address] [address] System, Provider Not In, [place] [address] Social History Tobacco Use Types Packs/Day Years [...] st Contact Info) Description 08/15/2024 Procedure Pass [address] [address] 08/06/2025 9:15 AM EDT Appointment [address] [place] [address] Ayaan Corrales MD, MS 45 Regin[address] [place], [facility] [address] [place] [address] [email or web address] 08/06/2025 10:00 AM EDT Appointment [facility], X-Ray - [address] [address] Ayaan Corrales MD, MS 45 Regino [place], [facility] [address] [place] [address] [email or web address] documented as of [...] on filedocumented in this encounter Care Teams Cylinder Block Hole Reliner Relationship Specialty Start Date End Date Regino Coleman MD [address] [place] [address] PCP - General Internal Medicine 04/29/18 04/04/25 Jr Hogue MD [address] [place] [address] PCP - General Internal Medicine 04/05/25 Fallon Dillard MD [address] [place] [address] [email or web address] Referring Physician Hematology and Oncology 04/29/18 documented as of this encounter Additional Source Comments The information contained in this document represents components of the legal health record. It is not the complete legal health record.[facility]
--- OUTSIDE RECORDS SUMMARY | 2025-07-16 13:08 | XMS_ITS | Encounter Summary ---
Author Organization [facility] Address [address] [place] [address] Phone Care Team Providers Care Computer Aide Name Role Phone Regino Coleman MD Primary Care Provider Fallon Dillard MD Unavailable [phone] Jr Hogue MD Primary Care Provid er Encounter Details Date Type Department Care Team (Late st Contact Info) Description 05/11/2022 Procedure Pass [address] [address] Social History Tobacco Use Types Packs/Day Years [...] st Contact Info) Description 08/15/2024 Procedure Pass [address] [address] 08/06/2025 9:15 AM EDT Appointment [address] [address] Ayaan Corrales MD, MS 45 Regin[address] [place], [facility] [address] [place] [address] [email or web address] 08/06/2025 10:00 AM EDT Appointment [facility], X-Ray - [facility] [address] [place] [address] Ayaan Corrales MD, MS 45 Regin[address] [place], [facility] [address] [place] [address] [email or web address] documented as of this encounter Visit Diagnoses Not on filedocumented in this encounter Care Teams Computer Aide Relationship Specialty Start Date End Date Regino Coleman MD [address] [place] [address] PCP - General Internal Medicine 04/29/18 04/04/25 Jr Hogue MD [address] [place] [address] PCP - General Internal Medicine 04/05/25 Fallon Dillard MD [address] [place] [address] [email or web address] [email or web address] Referring Physician Hematology and Oncology 04/29/18 documented as of this encounter Additional Source Comments The information contained in this document represents components of the legal health record. It is not the complete legal health record.[facility]
--- OUTSIDE RECORDS SUMMARY | 2025-07-16 13:08 | XMS_ITS | Clinical Summary ---
Author Organization [facility] Address [address] [place] [address] Phone Care Team Providers Care Pharmaceutical Representative Name Role Phone Fallon Dillard MD Unavailable [phone] Jr Hogue MD Primary Care Provid [...] with hand surgeon Dr. Mary Boss in [place] Regular use of meloxicam previously effective, but [...] will continue to follow up with her textile clothing and footwear mechanic to optimize renal function. Assessment & Plan [...] will continue to follow up with her textile clothing and footwear mechanic to optimize renal function. Assessment & Plan [...] initially though review of the pathology by [facility], Department [...] date. Immunizations Immunization Administration Dates Next Due COVID-19 (Pre-08/02) Precious Vaccine, rS-Ad26, P F 12/14/2020 COVID-19 (Pre-08/02) [...] st Contact Info) Description 08/15/2024 Procedure Pass [address] [address] 08/06/2025 9:15 AM EDT Appointment [address] [address] Ayaan Corrales MD, MS [address] [place] [address], [address] [address] [email or web address] 08/06/2025 10:00 AM EDT Appointment [facility], X-Ray - [facility] [address] [place] [address] Ayaan Corrales MD, MS 45 [facility], [facility] [address] [place] [address] [email or web address] Health Maintenance Due Date Last [...] this topic Medical Devices Not on file Insurance MEDICARE PART A & B [employer] MEDICARE SUPPLEMENT MEDICARE PART A & B [facility] EXTENSION [place] [address] MEDICARE PART A & B [employer] MEDICARE SUPPLEMENT Member Subscriber Plan / Payer (Ef fective 2019-Present) Name:Selma Rebekah E Relation to Subscriber:Self Name:Rebekah Hahn Stephen Payer ID:[id number] ([facility]) Type:Indemnity Address: [address] [place] [address] MEDICARE PART A & B [employer] MEDICARE SUPPLEMENT MEDICARE PART A & B [facility] MEDICARE SUPPLEMENT MEDICARE PART A & B [facility] MEDICARE SUPPLEMENT MEDICARE PART A & B [facility] MEDICARE SUPPLEMENT MEDICARE PART A & B [employer] MEDICARE SUPPLEMENT Member Subscriber Plan / Payer (Ef fective 2019-Present) Name:Rebekah Hahn Relation to Subscriber:Self Name:Rebekah Hahn Payer ID:[id number] ([facility]) Type:Indemnity Address: [address] [address] MEDICARE PART A & B [employer] EXTENSION MEDICARE SUPPLEMENT Advance Directives For more information, please contact: [phone] (9AM - 5PM [place], Wednesday-Wednesday) Documents on File Type Date Recorded Patient Yarder Operator Expl anation Healthcare Proxy 06/09/2018 10:59 AM 09-19 * Full Code (Presumed) (Latest Code Status on File) Date Activated Date Inactivated Comments 06/16/2018 1:39 PM 06/18/2018 3:12 PM Healthcare Agents on File Name Relationship Healthcare Agent Relationship Communication Orlin Hahn Spouse .Primary Health Care Agent (Proxy form on file) Care Teams Pharmaceutical Representative Relationship Specialty Start Date End Date Jr Hogue MD [address] [place] [address] PCP - General Internal Medicine 04/05/25 Fallon Dillard MD [address] [place] [address] [email or web address] Reply Referring Physician Hematology and Oncology 04/29/18 Additional Source Comments The information contained in this document represents components of the legal health record. It is not the complete legal health record.[facility]
--- OUTSIDE RECORDS SUMMARY | 2025-07-16 13:08 | XMS_ITS | Encounter Summary ---
Author Organization [facility] Address [address] [place] [address] Phone Care Team Providers Care Housing Officer Name Role Phone Regnio Coleman MD Primary Care Provider Fallon Dillard MD Unavailable [phone] Jr Hogue MD Primary Care Provid er Encounter Details Date Type Department Care Team (Late st Contact Info) Description 06/10/2021 Ancillary Orders [facility],Outside [address] [address] System, Provider [place] In, [place] [address] Social History Tobacco Use Types Packs/Day Years [...] st Contact Info) Description 08/15/2024 Procedure Pass [address] [address] 08/06/2025 9:15 AM EDT Appointment [address] [place] [address] Ayaan Corrales MD, MS 45 Regin[address] [place], [facility] [address] [place] [address] [email or web address] 08/06/2025 10:00 AM EDT Appointment [facility], X-Ray - [address] [address] Ayaan Corrales MD, MS 45 Regin[address] [place], [facility] [address] [place] [address] [email or web address] documented as of this encounter Results * XR Chest Outside (No Interpretation) (05/23/2020 12:00 AM EDT) Narrative SYSTEMGENERATED, DOCUMENTATION - 06/10/2021 7:18 AM EDT This study is for PACS storage only and not for interpretation. us Provider Not In System PhD IMG OUTSIDE IMAGING W /OUT INTERPRETATION Final Result documented in this encounter Visit Diagnoses Not on filedocumented in this encounter Care Teams Housing Officer Relationship Specialty Start Date End Date Regino Coleman MD [address] [place] [address] PCP - General Internal Medicine 04/29/18 04/04/25 Jr Hogue MD [address] [place] [address] PCP - General Internal Medicine 04/05/25 Fallon Dillard MD [address] [place] [address] [email or web address] Referring Physician Hematology and Oncology 04/29/18 documented as of this encounter Additional Source Comments The information contained in this document represents components of the legal health record. It is not the complete legal health record.[facility]
--- OUTSIDE RECORDS SUMMARY | 2025-07-16 13:08 | XMS_ITS | Encounter Summary ---
Author Organization [facility] Address [address] [place] [address] Phone Care Team Providers Care Second Shift Supervisor Name Role Phone Regino Coleman MD Primary Care Provider [phone] Encounter Details Date Type Department Care Team (Late st Contact Info) Description 11/25/2022 Telephone [facility] [address] [place] [address] Ying Medrano Social History Tobacco [...] called to relay that Dr. Reyes from [facility] had recently put a stent in [...] on filedocumented in this encounter Care Teams Second Shift Supervisor Relationship Specialty Start Date End Date Regino Coleman MD [address] VIRGINIERICKY FAUSTIN PCP - General 10/21/20 documented as of this encounter
--- OUTSIDE RECORDS SUMMARY | 2025-07-16 13:08 | XMS_ITS | Encounter Summary ---
Author Organization [facility] Address [address] [place] [address] Phone Care Team Providers Care Reservations Manager Name Role Phone Regino Coleman MD Primary Care Provider Fallon Dillard MD Unavailable [phone] Jr Hogue MD Primary Care Provid er Encounter Details Date Type Department Care Team (Late st Contact Info) Description 04/27/[address] [facility] MR Imaging, Black [address] [place] [address] Social History Tobacco Use Types Packs/Day Years [...] st Contact Info) Description 08/15/2024 Procedure Pass [address] [address] 08/06/2025 9:15 AM EDT Appointment [address] [address] Ayaan Corrales MD, MS 45 Regino [place], AS[facility] [address] [place] [address] [email or web address] 08/06/2025 10:00 AM EDT Appointment [facility], X-Ray - [facility] [address] [place] [address] Ayaan Corrales MD, MS 45 Regino [place], [facility] [address] [place] [address] [email or web address] documented as of this encounter Visit Diagnoses Not on filedocumented in this encounter Care Teams Reservations Manager Relationship Specialty Start Date End Date Regino Coleman MD [address] [place] [address] PCP - General Internal Medicine 04/29/18 04/04/25 Jr Hogue MD [address] [place] [address] PCP - General Internal Medicine 04/05/25 Fallon Dillard MD [address] [place] [address] [email or web address] hospitalF[facility]a Referring Physician Hematology and Oncology 04/29/18 documented as of this encounter Additional Source Comments The information contained in this document represents components of the legal health record. It is not the complete legal health record.[facility]
--- OUTSIDE RECORDS SUMMARY | 2025-07-16 13:08 | XMS_ITS | Encounter Summary ---
Author Organization [facility] Address [address] [place] [address] Phone Care Team Providers Care Agent Contract Clerk Name Role Phone Regino Coleman MD Primary Care Provider [phone] Encounter Details Date Type Department Care Team (Late st Contact Info) Description 01/06/2023 Telephone [facility] [address] [place] [address] Ying Medrano Social History Tobacco [...] appt w/ [facility] and fax order to [facility] and they will call and book sooner appt. Pt stated that she is going to see her teaching specialists in 2 weeks and her MD stated she will do th US in office. Pls advise if you would like her teaching specialists to do US or move forward with the hospital. Her teaching specialists does not have a radiology department. * Telephone Encounter - Ying Medrano - 01/06/2023 9:51 AM EDT PT says she has renal ultrasound scheduled for 03/01/23. PT wants to be seen sooner, she is asking for an earlier appointment and is willing to commute to [place] if she can get a sooner appointment. documented in this encounter Plan of Treatment Not on file documented as of this encounter Visit Diagnoses Not on filedocumented in this encounter Care Teams Agent Contract Clerk Relationship Specialty Start Date End Date Regino Coleman MD [address] [place] [address] DR[address] [place] PCP - General 10/21/20 documented as of this encounter
--- OUTSIDE RECORDS SUMMARY | 2025-07-16 13:08 | XMS_ITS | Encounter Summary ---
Author Organization [facility] Address [address] [place] [address] Phone Care Team Providers Care Senior Media Director Name Role Phone Regino Coleman MD Primary Care Provider Fallon Dillard MD Unavailable [phone] Jr Hogue MD Primary Care Provid er Encounter Details Date Type Department Care Team (Late st Contact Info) Description 05/24/2018 Procedure Pass [facility] OUTSIDE IMG [address] [place] [address] Social History Tobacco Use Types Packs/Day Years [...] Contact Info) Description 08/15/2024 Procedure Pass [address] [address] 08/06/2025 9:15 AM EDT Appointment [address] [address] Ayaan Corrales MD, MS [address] [place] [address] [email or web address] 08/06/2025 10:00 AM EDT Appointment [facility], X-Ray - [address] [address] Ayaan Corrales MD, MS 45 [facility], [facility] [address] [place] [address] [email or web address] documented as of this encounter Visit Diagnoses Not on filedocumented in this encounter Care Teams Senior Media Director Relationship Specialty Start Date End Date Regino Coleman MD [address] [place] [address] PCP - General Internal Medicine 04/29/18 04/04/25 Jr Hogue MD [address] [place] [address] PCP - General Internal Medicine 04/05/25 Fallon Dillard MD [address] [place] [address] [email or web address] Referring Physician Hematology and Oncology 04/29/18 documented as of this encounter Additional Source Comments The information contained in this document represents components of the legal health record. It is not the complete legal health record.[facility]
--- OUTSIDE RECORDS SUMMARY | 2025-07-16 13:08 | XMS_ITS | Encounter Summary ---
Author Organization [facility] Address [address] [place] [address] Phone Care Team Providers Care Buhr Dresser Name Role Phone Regino Coleman MD Primary Care Provider Fallon Dillard MD Unavailable [phone] Jr Hogue MD Primary Care Provid er Encounter Details Date Type Department Care Team (Late st Contact Info) Description 06/10/2021 Ancillary Orders [facility],Outside [address] [address] System, Provider Not In, [place] [address] Social History Tobacco Use Types Packs/Day Years [...] Contact Info) Description 08/15/2024 Procedure Pass [address] [address] 08/06/2025 9:15 AM EDT Appointment [address] [place] [address] Ayaan Corrales MD, [place] [address] R[address] [place], [facility] [address] [place] [address] [email or web address] 08/06/2025 10:00 AM EDT Appointment [facility], X-Ray - [address] [address] Ayaan Corrales MD, MS 45 Regino [place], [facility] [address] [place] [address] [email or web address] documented as of this encounter Results * CT Abdomen/Pelvis Outside (No Interpretation) (02/07/2021 12:00 AM EDT) Narrative SYSTEMGENERATED, DOCUMENTATION - 06/10/2021 7:17 AM EDT This study is for PACS storage only and not for interpretation. us Provider Not In System PhD IMG OUTSIDE IMAGING W /OUT INTERPRETATION Final Result documented in this encounter Visit Diagnoses Not on filedocumented in this encounter Care Teams Buhr Dresser Relationship Specialty Start Date End Date Regino Coleman MD [address] [place] [address] PCP - General Internal Medicine 04/29/18 04/04/25 Jr Hogue MD [address] [place] [address] PCP - General Internal Medicine 04/05/25 Fallon Dillard MD [address] [place] [address] [email or web address] Referring Physician Hematology and Oncology 04/29/18 documented as of this encounter Additional Source Comments The information contained in this document represents components of the legal health record. It is not the complete legal health record.[facility]
--- OUTSIDE RECORDS SUMMARY | 2025-07-16 13:08 | XMS_ITS | Encounter Summary ---
Author Organization [facility] Address [address] [place] [address] Phone Care Team Providers Care Gas Engine Operator Generators Name Role Phone Regino Coleman MD Primary Care Provider Fallon Dillard MD Unavailable [phone] Jr Hogue MD Primary Care Provid er Encounter Details Date Type Department Care Team (Late st Contact Info) Description 06/16/2018 Procedure Pass [facility] Periop [address] [place] [address] Social History Tobacco Use Types Packs/Day Years [...] st Contact Info) Description 08/15/2024 Procedure Pass [address] [address] 08/06/2025 9:15 AM EDT Appointment [address] [address] Ayaan Corrales MD, MS [address] [place] [address] [facility] [address] [place] [address] [email or web address] 08/06/2025 10:00 AM EDT Appointment [facility], X-Ray - [address] [address] Ayaan Corrales MD, MS 45 Regino [place], [facility] [address] [place] [address] [email or web address] documented as of this encounter Visit Diagnoses Not on filedocumented in this encounter Care Teams Gas Engine Operator Generators Relationship Specialty Start Date End Date Regino Coleman MD [address] [place] [address] PCP - General Internal Medicine 04/29/18 04/04/25 Jr Hogue MD [address] [place] [address] PCP - General Internal Medicine 04/05/25 Fallno Dillard MD [address] [place] [address] [email or web address] Referring Physician Hematology and Oncology 04/29/18 documented as of this encounter Additional Source Comments The information contained in this document represents components of the legal health record. It is not the complete legal health record.[facility]
--- OUTSIDE RECORDS SUMMARY | 2025-07-16 13:09 | XMS_ITS | Patient Health Record ---
Author Organization [facility] Address [address] [place] [address] Care Team Providers Care Cut Off Saw Operator Metal Name Role Phone SHARADJAEL PARKTIK Primary Care Provider Amilcar Santiago Unavailable [phone] Allergies No Known Allergies Results Component Value Reference Range Notes Complete Blood Count Auto Di ff Reviewed date:08/01/2024 12:13:53 PM Interpretation: Performing Lab:[facility], [address] [place] [phone] Notes/Report: White Blood Count 7.1 4.8-10.8 X10*3/uL [...] X10*3/uL NRBC Abs Auto 0.000 0.0-0.012 X10*3/uL Pathology (Not yet reviewed by provider) Interpretation: Performing Lab:[facility], [address] [place] [phone] Notes/Report: Reason For Referral No Information Medications Medication [...] Status Risk Notes Problem Irritable bowel syndrome (86102749) Irritable bowel syndrome (K58.9) Active confirmed Problem 953869466 Encounter for screening for malignant neoplasm of colon (Z12.11) Active confirmed Problem Diarrhea (29496695) Diarrhea (R19.7) Active con firmed Problem Change in bowel habit (89707910) Change in bowel habits (R19.4) Active confirmed Problem Screening for malignant neoplasm of rectum (681572189) Encounter for screening for malignant neoplasm of rectum (Z12.12) Active confirmed Problem 28808363 Blood in stool (K92.1) Active confirmed Problem 640221062 Gastroesophageal reflux disease without esophagitis (K21.9) Active confirmed Problem 646301617 Gastroesophageal reflux disease, esophagitis presence not specified (K21.9) Active confirmed Problem Pancreatic cyst (16800082) 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) Active confirmed Problem 73545934 Constipation, unspecified constipation type (K59.00) Active confirmed Problem 861862596 Abdominal pain, left lower quadrant (R10.32) Active confirmed Problem Gastroesophageal reflux disease (589305484) GERD (gastroesophageal reflux disease) (K21.9) Active confirmed Problem Irritable bowel syndrome characterized by constipation (603473212) Irritable bowel syndrome with constipation (K58.1) Active confirmed Problem Irritable bowel syndrome (02365040) Irritable bowel syndrome with both constipation and diarrhea (K58.2) Active confirmed Problem Thrombocytosis (disorder) (6002355) Thrombocytosis, unspecified (D75.839) Active confirmed Problem Neoplasm of digestive system (953002970) IPMN (intraductal papillary mucinous neoplasm) (D49.0) Active confirmed Vital Signs Blood pressure diastolic 77 mm Hg 04/03/2025 Height 64 in 04/03/2025 Blood pressure systolic 111 mm Hg 04/03/2025 Weight 136 lbs 04/03/2025 BMI 23.34 kg/m2 04/03/2025 Procedures Procedure Date Ordered Date Performed Result Body Sit e UPPER GI ENDOSCOPY 04/03/2025 N/A COLONOSCOPY 04/03/2025 N/A Encounters Encounter Location Date Provider Diagnosis [facility] Outpatient [address] [place], [place] [id number] 07/04/2025 Amilcar Sosa [facility] [address] [place] [address] 09/28/2024 Amilcar Sosa Gastroesophageal ref lux disease, esophagitis presence not specified K21.9 ; Irritable bowel syndrome with constipation K58.1 ; Encounter for screening for malignant neoplasm of colon Z12.11 ; Constipation, unspecified constipation type K59.00 and Pancreatic cyst K86.2 [facility] [address] [place] [address] 04/03/2025 Amilcar Sosa Change in bowel habi ts R19.4 ; Irritable bowel syndrome with both constipation and diarrhea K58.2 ; GERD (gastroesophageal reflux disease) K21.9 and IPMN (intraductal papillary mucinous neoplasm) D49.0 [facility] [address] [place] [address] 07/20/2024 Amilcar Sosa [facility] [address] [place] [address] 09/28/2024 Amilcar Sosa [facility] [address] [place] [address] 04/03/2025 Amilcar Sosa Assessments Encounter Date Diagnosis (ICD [...] will be having it done up at [facility] as it is ordered by her [facility] in regard to the follow-up of [...] will be having it done up at [facility] as it is ordered by her [facility] in regard to the follow-up of [...] keep you advised of her progress.. 09/28/2024 Encounter for screening for malignant neoplasm [...] will be having it done up at [facility] as it is ordered by her [facility] in regard to the follow-up of [...] will be having it done up at [facility] as it is ordered by her [facility] in regard to the follow-up of [...] K86.2) Need MRI report from [facility] from 06/2024 Overall, Cordell appears well. [...] WBC 07/05/2024 C DIFFICILE RFLX PCR 07/05/2024 Pathology 07/04/2025 Future Test Test Name Order Date UPPER GI ENDOSCOPY 07/24/2016 COLONOSCOPY 05/25/2017 Next Appt Details Provider Name:Amilcar Sosa , 09/27/2025 09:00:00 AM, [address], [address], [place], [address], Insurance Providers Payer Name Payer Address Payer Phone Subscriber Number Group Number Insured Name Patient Relationship to Insured Coverage Start Date Coverage End Date MEDICARE OF [place] [address] [place] [address] [id number] CORDELL ORDAZ Self - patient is the insured [employer] ([employer]) [address] [place] [id number] TRESTANRAMIRO Kyle CORDELL Self - patient is the insured Medical (General) History Medical History History ICD Code Screening colonoscopy 05-24-2009--negativ e EGD 01-05-2002 and in 11/2016--small HH, n o esophagitis, no Hernandes's Asthma--presently asymptomatic 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 Dillard Mitral valve prolapse Lyme's disease/Fibromyalgia--Amitryptile ne and Gabapentin Migraines-on Propranolol Hyperlipidemia Arthritis in left foot--Meloxicam/Cortis one injections Denies [place],DM,CVA,renal disease Renal cancer with surgery in 06/2018 [...] 11/18/2022 Left kidney removed for cancer at [facility] by Dr. Corrales 06/2018 Uterine polyps Breast biopsy -2013--breast-left--LCIS Left ovary removed and appy Broken ankle/beau and screws right Cyst removed both breasts Tonsillectomy
--- OUTSIDE RECORDS SUMMARY | 2025-07-16 13:09 | XMS_ITS | Encounter Summary ---
Author Organization [facility] Address [address] [place] [address] Phone Care Team Providers Care Spiritual Care Coordinator Name Role Phone Regino Coleman MD Primary Care Provider Fallon Dillard MD Unavailable [phone] Jr Hogue MD Primary Care Provid er Encounter Details Date Type Department Care Team (Late st Contact Info) Description 09/29/2018 Procedure Pass [facility] MR Imaging, Black [address] [place] [address] Social History Tobacco Use Types Packs/Day Years [...] st Contact Info) Description 08/15/2024 Procedure Pass [address] [address] 08/06/2025 9:15 AM EDT Appointment [address] [address] Ayaan Corrales MD, MS 45 Regin[address] [place], [facility] [address] [place] [address] [email or web address] 08/06/2025 10:00 AM EDT Appointment [facility], X-Ray - [facility] [address] [place] [address] Ayaan Corrales MD, MS 45 Regino Oliveira, [facility] [address] [place] [address] [email or web address] documented as of this encounter Visit Diagnoses Not on filedocumented in this encounter Care Teams Spiritual Care Coordinator Relationship Specialty Start Date End Date Regino Coleman MD [address] [place] [address] PCP - General Internal Medicine 04/29/18 04/04/25 Jr Hogue MD [address] [place] [address] PCP - General Internal Medicine 04/05/25 Fallon Dillard MD [address] [place] [address] [email or web address] hospitalNanoogo Referring Physician Hematology and Oncology 04/29/18 documented as of this encounter Additional Source Comments The information contained in this document represents components of the legal health record. It is not the complete legal health record.[facility]
--- OUTSIDE RECORDS SUMMARY | 2025-07-16 13:09 | XMS_ITS | Encounter Summary ---
Author Organization [facility] Address [address] [place] [address] Phone Care Team Providers Care Bead Builder Name Role Phone Regino Coleman MD Primary Care Provider Fallon Dillard MD Unavailable [phone] Jr Hogue MD Primary Care Provid er Encounter Details Date Type Department Care Team (Late st Contact Info) Description 01/05/2019 Procedure Pass [facility] MR Imaging, Black [address] [place] [address] Social History Tobacco Use Types Packs/Day Years [...] st Contact Info) Description 08/15/2024 Procedure Pass [address] [address] 08/06/2025 9:15 AM EDT Appointment [address] [address] Ayaan Corrales MD, MS 45 Regin[address] [place], [facility] [address] [place] [address] [email or web address] 08/06/2025 10:00 AM EDT Appointment [facility], X-Ray - [facility] [address] [place] [address] Ayaan Corrales MD, MS 45 Regino Oliveira, [facility] [address] [place] [address] [email or web address] documented as of this encounter Visit Diagnoses Not on filedocumented in this encounter Care Teams Bead Builder Relationship Specialty Start Date End Date Regino Coleman MD [address] [place] [address] PCP - General Internal Medicine 04/29/18 04/04/25 Jr Hogue MD [address] [place] [address] PCP - General Internal Medicine 04/05/25 Fallon Dillard MD [address] [place] [address] [email or web address]01[employer] Referring Physician Hematology and Oncology 04/29/18 documented as of this encounter Additional Source Comments The information contained in this document represents components of the legal health record. It is not the complete legal health record.[facility]
--- OUTSIDE RECORDS SUMMARY | 2025-07-16 13:09 | XMS_ITS | Encounter Summary ---
Author Organization [facility] Address [address] [place] [address] Phone Care Team Providers Care Justice Court Deputy Clerk Name Role Phone Regino Coleman MD Primary Care Provider Fallon Dillard MD Unavailable [phone] Jr Hogue MD Primary Care Provid er Encounter Details Date Type Department Care Team (Late st Contact Info) Description 07/07/2022 Procedure Pass [address] [address] Social History Tobacco Use Types Packs/Day Years [...] Contact Info) Description 08/15/2024 Procedure Pass [address] [address] 08/06/2025 9:15 AM EDT Appointment [address] [address] Ayaan Corrales MD, MS 45 Regino [place]ira, [facility] [address] [place] [address] [email or web address] 08/06/2025 10:00 AM EDT Appointment [facility], X-Ray - [facility] [address] [place] [address] Ayaan Corrales MD, MS 45 Regin[address] [place], [facility] [address] [place] [address] [email or web address] documented as of this encounter Visit Diagnoses Not on filedocumented in this encounter Care Teams Justice Court Deputy Clerk Relationship Specialty Start Date End Date Regino Coleman MD [address] [place] [address] PCP - General Internal Medicine 04/29/18 04/04/25 Jr Hogue MD [address] [place] [address] PCP - General Internal Medicine 04/05/25 Fallon Dillard MD [address] [place] [address] [email or web address] Riskohiohealth o'bleness hospitalDreamsoft Technologies Referring Physician Hematology and Oncology 04/29/18 documented as of this encounter Additional Source Comments The information contained in this document represents components of the legal health record. It is not the complete legal health record.[facility]
--- OUTSIDE RECORDS SUMMARY | 2025-07-16 13:09 | XMS_ITS | Encounter Summary ---
Author Organization [facility] Address [address] [place] [address] [place] [address] Phone Care Team Providers Care Plug Wirer Name Role Phone Regino Coleman MD Primary Care Provider Fallon Dillard MD Unavailable [phone] Jr Hogue MD Primary Care Provid er Encounter Details Date Type Department Care Team (Late st Contact Info) Description 08/19/2023 Procedure Pass [facility], [address] [address] Social History Tobacco Use Types Packs/Day Years [...] st Contact Info) Description 08/15/2024 Procedure Pass [facility], [address] [address] 08/06/2025 9:15 AM EDT Appointment [address] [address] Ayaan Corrales MD, [address] [address] [email or web address] 08/06/2025 10:00 AM EDT Appointment [facility], X-Ray - [address] [address] Ayaan Corrales MD, [address] [address] [email or web address] documented as of this encounter Visit Diagnoses Not on filedocumented in this encounter Care Teams Plug Wirer Relationship Specialty Start Date End Date Regino Coleman MD [address] [place] [address] PCP - General Internal Medicine 04/29/18 04/04/25 Jr Hogue MD [address] [place] [address] PCP - General Internal Medicine 04/05/25 Fallon Dillard MD [address] [place] [address] [email or web address] Referring Physician Hematology and Oncology 04/29/18 documented as of this encounter Additional Source Comments The information contained in this document represents components of the legal health record. It is not the complete legal health record.[facility]
--- OUTSIDE RECORDS SUMMARY | 2025-07-16 13:09 | XMS_ITS | Encounter Summary ---
Author Organization [facility] Address [address] [place] [address] Phone Care Team Providers Care Systems Lead Name Role Phone Regino Coleman MD Primary Care Provider Fallon Dillard MD Unavailable [phone] Jr Hogue MD Primary Care Provid er Encounter Details Date Type Department Care Team (Late st Contact Info) Description 06/23/2018 Procedure Pass [facility] Radiology [address] [place] [address] Social History Tobacco Use Types Packs/Day Years [...] Contact Info) Description 08/15/2024 Procedure Pass [address] [address] 08/06/2025 9:15 AM EDT Appointment [address] [address] Ayaan Corrales MD, MS 45 Regin[address] [place], [facility] [address] [place] [address] [email or web address] 08/06/2025 10:00 AM EDT Appointment [facility], X-Ray - [address] [address] Ayaan Corrales MD, MS 45 Regino Oliveira, [facility] [address] [place] [address] [email or web address] documented as of this encounter Visit Diagnoses Not on filedocumented in this encounter Care Teams Systems Lead Relationship Specialty Start Date End Date Regino Coleman MD [address] [place] [address] PCP - General Internal Medicine 04/29/18 04/04/25 Jr Hogue MD [address] [place] [address] PCP - General Internal Medicine 04/05/25 Fallon Dillard MD [address] [place] [address] [email or web address] Lalinaselect medical [facility] shawAvraham Pharmaceuticals Referring Physician Hematology and Oncology 04/29/18 documented as of this encounter Additional Source Comments The information contained in this document represents components of the legal health record. It is not the complete legal health record.[facility]
--- OUTSIDE RECORDS SUMMARY | 2025-07-16 13:10 | XMS_ITS | Clinical Summary ---
Author Organization [facility] Address [address] [place] [address] Care Team Providers Care Sock Knitter Name Role Phone Regino Coleman MD Primary Care Provider [phone] Allergies Active Allergy Reactions Criticality Noted Date [...] the pathology by [facility], Department of [...] date. Immunizations Immunization Administration Dates Next Due 4vets SARS-COV-2 12/14/2020 Musement SARS-COV-2 08/06/2021 Pneumococcal Conjugate 13-Valent 12/29/2019 Family [...] to complete this topic Insurance Medicare [facility] Medicare [facility] Care Teams Sock Knitter Relationship Specialty Start Date End Date Regino Coelman MD [address] [place] PCP - General 10/21/20
--- OUTSIDE RECORDS SUMMARY | 2025-07-16 13:10 | XMS_ITS | Patient Health Record ---
[facility] Address [address] [place] [address] Care Team Providers Care Brand Planner Name Role Phone Jr Hogue Primary Care Provider [phone] Black, Aye Unavailable [phone] Allergies Allergen (clinical drug ingredient) Drug/Non Drug [...] primary osteoarthritis of the ankle and/or foot (193446296) Primary osteoarthrit is, left ankle and foot (M19.072) Active confirmed Vital Signs Blood pressure diastolic 75 mm Hg 05/24/2025 Height 5ft3in in 05/24/2025 Blood pressure systolic 121 mm Hg 05/24/2025 Weight 136 lbs 05/24/2025 BMI 24.09 kg/m2 05/24/2025 Procedures Procedure Date Ordered Date Performed Result Body Sit e , G9506-QXPRL/INJECT, JOINT/BURSA 08/17/2024 N/A , S4855-NVBXX/INJECT, JOINT/BURSA 05/24/2025 N/A Encounters Encounter Location Date Provider Diagnosis [facility] [address] [place] [address] 08/17/2024 Aye Black Primary osteoarthrit is, left ankle and foot M19.072 ; Joint pain M25.50 ; Neuralgia and neuritis, unspecified M79.2 ; Hypertrophy of bone, 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 and Pain in left foot M79.[address] [address] 02/12/2025 Aye Bliss Primary osteoarthrit is, left [...] Other hammer toe(s) (acquired), right foot M20.[address] [address] 05/24/2025 Aye Bliss Primary osteoarthrit is, left ankle and foot M19.072 ; Joint pain M25.50 ; Neuralgia and neuritis, unspecified M79.2 and Hypertrophy of bone, 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 [facility] [address] [address] 12/11/2024 Aye Bliss [address] [address] 02/12/2025 Aye Bliss Assessments Encounter Date Diagnosis (ICD Code) Assessment Notes Treatment Notes Treatment Clinical Notes Section Notes 08/17/2024 Primary osteoarthrit is, left ankle and foot (ICD-10 - M19.072) 05/24/2025 Primary osteoarthrit is, left ankle and foot (ICD-10 - M19.072) 05/24/2025 Joint pain (ICD-10 - M25.50) 02/12/2025 Primary osteoarthrit is, left ankle and foot (ICD-10 - M19.072) 02/12/2025 Joint pain (ICD-10 - M25.50) 02/12/2025 Neuralgia and neurit is, unspecified (ICD-10 - M79.2) 05/24/2025 Neuralgia and neurit is, unspecified (ICD-10 [...] Pain in left foot (ICD-10 - M79.672) 08/17/2024 Pain in left foot (ICD-10 - [...] X ray : Foot, right 3V 04/24/2013 73694-Vmfi Destruction, 1-14 02/08/2023 29388-Zigv Destruction, 1-12/08/2021, U9485-UQJGS/INJECT, JOINT/BURSA 0 04/06/2022 41142, Q9478-EETDN/INJECT, JOINT/BURSA 1 00, X1144-YRPWY/INJECT, JOINT/BURSA 0 02/08/2023, L8511-EYKBV/INJECT, JOINT/BURSA 1 11/02/201914521, C8240-ZVKZH/INJECT, JOINT/BURSA 0 01/02/2021 12732, O4531-TJSLI/INJECT, JOINT/BURSA 0 05/05/2021 21505, A6286-DOJBH/INJECT, JOINT/BURSA 1 38552, L9691-VQOGP/INJECT, JOINT/BURSA 0 12/08/2021 60538, Z1703-EZJZC/INJECT, JOINT/BURSA 0 01/26/2017 37610, H9432-JIUER/INJECT, JOINT/BURSA 1 11/24/2016 96846, C1676-HFPCO/INJECT, JOINT/BURSA 0 12/10/2017 25534, T0431-FPCZO/INJECT, JOINT/BURSA 0 03/14/2018 83395, C8075-FXCEA/INJECT, JOINT/BURSA 1 10/29/2017 84521, Y3231-WSSQL/INJECT, JOINT/BURSA 1 10/24/2018 25044, Z0992-EYQRQ/INJECT, JOINT/BURSA 0 01/01/202060279, H6895-SMXIE/INJECT, JOINT/BURSA 0 06/21/2023 73042, Y6877-ULHRF/INJECT, JOINT/BURSA 0 11/01/2023 28653, R3451-KFKMC/INJECT, JOINT/BURSA 0 02/28/2024 21754, J7090-BFVIK/INJECT, JOINT/BURSA 1 10/17/2023 00105, U5111-MSZXU/INJECT, JOINT/BURSA 0 05/24/202535828, K5424-RXREG/INJECT, JOINT/BURSA 0 04/20/201985343, T5934-SGSSP/INJECT, JOINT/BURSA 0 11/02/2016 73335, P2085-MXRHI/INJECT, JOINT/BURSA 0 04/08/201613089, Y8165-KVMLI/INJECT, JOINT/BURSA 0 12/19/2018 97832,G8340-CWP TENDON SHEATH/LIGAMENT 0 05/02/2020 Next Appt Details Provider Name:Aye Miranda Izaiah , 08/27/2025 08:15:00 AM, [address] [place] [address], [place], [address], Insurance Providers Payer Name Payer Address Payer Phone Subscriber Number Group Number Insured Name Patient Relationship to Insured Coverage Start Date Coverage End Date Medicare National Govt [facility] [address] [place] [address] [id number] Rebekah Suh Self - patient is the insured [employer] ([employer]) [address] [place] [id number] Rebekah Suh Self - patient is [...]
== END 2025-07-16 11:02 | disposition home or self-care (01) ==
LOC: HO.HMGAL 10:51
PROVIDERS: PCP Internal Medicine; Visit Provider Registered Nurse Emergency
DX: J30.89 Other allergic rhinitis (principal)
CPT/HCPCS: 95117; 95165

== ENCOUNTER 2025-07-25 10:45 | Outpatient (AMB) | payer MEDICARE, OTHER, SELFPAY ==
--- OUTSIDE RECORDS SUMMARY | 2024-07-03 05:15 | XMS_ITS ---
Author Organization [facility] Address [address] [place] [address] Care Team Providers Care Skimmer Reverberatory Name Role Phone Jr Hogue Primary Care Provider Aye Bliss [phone] Encounters Encounter Location Date Provider Diagnosis [address] [address] 07/03/2024 Aye Bliss Plan Of Treatment Next Appt Details Provider Name:Aye A Izaiah , 08/27/2025 08:15:00 AM, [address] [place] [address], [phone], Progress Notes * Alexander HAHNeDOB: [birth year] (69 yo F)Acc No.[id number]:07/03/2024 Progress Note Patient: Rebekah POLO Provider: Alicja Bliss DPM :1955 A ge:68 Y S ex:Female Date:07/03/2024 Address:[address] [place] [address] [place], [phone] Pcp:Jr Hogue Subjective: * Chief Complaints: * [...] 07/03/2024 Generated for Chandler Ortega/Nirav on: 1 12:54 PM EDT
--- OUTSIDE RECORDS SUMMARY | 2024-12-11 04:15 | XMS_ITS ---
Author Organization [facility] Address [address] [place] [address] Care Team Providers Care Emergency Veterinary Technician Name Role Phone Lennie, Kartik Primary Care Provider [phone] Black, Aye Unavailable [phone] Allergies Allergen (clinical drug ingredient) Drug/Non Drug [...] Negative Encounters Encounter Location Date Provider Diagnosis [facility] [place] [address] [place] [address] 12/11/2024 Aye Bliss Plan Of Treatment Next Appt Details Provider Name:Aye Bliss , 08/27/2025 08:15:00 AM, [address] [place], [address], Progress Notes * Ashvin HAHNOB: [birth year] (69 yo F)Acc No.[id number]:12/11/2024 Progress Note Patient: Rebekah POLO Provider: Alicja Bliss DPM :1955 A ge:69 Y S ex:Female Date:12/11/2024 Address:[address] [place] [address] Pcp:Jr Hogue Subjective: * Chief Complaints: * * ROS: G eneral/Constitutional: Nausea d enies. V omiting d enies. H joa nn Thirst d enies. L oss appetite d [...] denies.? C ardiovascular: Pacemaker d enies. M AU PAIR a dmits. W PW d enies. C [...] eakness d enies. P odiatric: Comments S [facility] for comments. I nteg.: Marques d [...] 0 12/11/2024 Generated for Chandler bentley/Brennon/Nirav on: 12:54 PM EDT
--- OUTSIDE RECORDS SUMMARY | 2025-07-04 04:30 | XMS_ITS ---
Author Organization [facility] Address [address] [facility] [address] [place] [address] Care Team Providers Care Dredge Runner Name Role Phone DESHAUN OROURKE Primary Care Provider Amilcar Santiago [phone] REASON FOR VISIT gerd,IBS,change in bowel habits Encounters Encounter Location Date Provider Diagnosis [facility] Outpatient [address] [place] [phone] 07/04/2025 Amilcar Sosa Plan Of Treatment Next Appt Details Provider Name:Amilcar Sosa , 09/27/2025 09:00:00 AM, [address] [place] [address], [address], [place], [address], Progress Notes * CORDELL COVARRUBIAS EDOB:[birth year] (69 yo F)Acc No.[id number]:07/04/2025 EGD and COL/MAC Patient: Kimberly JIMY CORDELL Mcnair Provider: Gary Sosa MD :1955 A ge:69 Y S ex:Female Date:07/04/2025 Address:[address] [place] Pcp:DESHAUN OROURKE Subjective: * Chief Complaints: * [...] 07/04/2025 Generated for Chandler bentley/Brennon/Nirav on: 1 12:55 PM EDT
--- OUTSIDE RECORDS SUMMARY | 2025-07-25 12:54 | XMS_ITS | Encounter Summary ---
Author Organization [facility] Address [address] [place] [address] Phone Care Team Providers Care Dimension Warehouse Supervisor Name Role Phone Regino Coleman MD Primary Care Provider [phone] Encounter Details Date Type Department Care Team (Late st Contact Info) Description 11/25/2022 Telephone [facility] [address] [place] [address] Ying Medrano Social History Tobacco [...] called to relay that Dr. Reyes from [facility] had recently put a stent in [...] on filedocumented in this encounter Care Teams Dimension Warehouse Supervisor Relationship Specialty Start Date End Date Regino Coleman MD [address] [place] PCP - General 10/21/20 documented as of this encounter
--- OUTSIDE RECORDS SUMMARY | 2025-07-25 12:54 | XMS_ITS | Patient Health Record ---
Author Organization [facility] Address [address] [place] [address] Care Team Providers Care Telegraph Service Clerk Name Role Phone DESHAUN OROURKE Primary Care Provider Amilcar Santiago [phone] Allergies No Known Allergies Results Component Value Reference Range Notes Pathology (Not yet reviewed by provider) Interpretation: Performing Lab:[facility], [address] [place] [phone] Notes/Report: Reason For Referral No Information Medications Medication SIG (Take, Route, Frequency, Duration) Notes Start Date End Date Status Propranolol HCl 10 MG 1 tablet Orally on ce a day Active Calcium 1200 mg/100D3 Twice a day Active Flonase Active Multivitamin Active Alendronate Sodium 70 MG Oral; Duration: 84 Active Metamucil Active MiraLax Active Albuterol Sulfate HFA 108 (90 Base) MCG/ACT 1 puff as needed Inhalation every 4 hrs Active Atorvastatin Calcium 20 MG TAKE 1 TABLET BY MOUTH AT BEDTIME Oral; Duration: 90 Active traMADol HCl 50 MG TAKE 1 TABLET BY ADITHYA TH TWICE DAILY NEEDED FOR MODERATE PAIN Oral; Duration: 15 Active Prilosec 20 MG 2 capsules [...] Status Risk Notes Problem Irritable bowel syndrome (37061742) Irritable bowel syndrome (K58.9) Active confirmed Problem Screening for malignant neoplasm of colon (124230308) Encounter for screening for malignant neoplasm of colon (Z12.11) Active confirmed Problem Diarrhea (55032675) Diarrhea (R19.7) Active con firmed Problem Change in bowel habit (79105559) Change in bowel habits (R19.4) Active confirmed Problem Screening for malignant neoplasm of rectum (600704510) Encounter for screening for malignant neoplasm of rectum (Z12.12) Active confirmed Problem Blood in stool (200167540) Blood in stool (K92.1) Active confirmed Problem Gastroesophageal reflux disease without esophagitis (641161254) Gastroesophageal reflux disease without esophagitis (K21.9) Active confirmed Problem Gastroesophageal reflux disease (407126210) Gastroesophageal reflux disease, esophagitis presence not specified (K21.9) Active confirmed Problem Pancreatic cyst (04920937) 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) Active confirmed Problem Constipation (79178874) Constipation, unspecified constipation type (K59.00) Active confirmed Problem Left lower quadrant pain (413431408) Abdominal pain, left lower quadrant (R10.32) Active confirmed Problem Gastroesophageal reflux disease (934683520) GERD (gastroesophageal reflux disease) (K21.9) Active confirmed Problem Irritable bowel syndrome characterized by constipation (781750879) Irritable bowel syndrome with constipation (K58.1) Active confirmed Problem Irritable bowel syndrome (47562115) Irritable bowel syndrome with both constipation and diarrhea (K58.2) Active confirmed Problem Thrombocytosis (disorder) (5591585) Thrombocytosis, unspecified (D75.839) Active confirmed Problem Neoplasm of digestive system (036783986) IPMN (intraductal papillary mucinous neoplasm) (D49.0) Active confirmed Vital Signs Blood pressure diastolic 77 mm Hg 04/03/2025 Height 64 in 04/03/2025 Blood pressure systolic 111 mm Hg 04/03/2025 Weight 136 lbs 04/03/2025 BMI 23.34 kg/m2 04/03/2025 Procedures Procedure Date Ordered Date Performed Result Body Sit e UPPER GI ENDOSCOPY 04/03/2025 N/A COLONOSCOPY 04/03/2025 N/A Encounters Encounter Location Date Provider Diagnosis [facility] Outpatient [address] [place], [place] [id number] 07/04/2025 Amilcar Sosa [facility] [address] [facility] [address] [place] [address] 09/28/2024 Amilcar Sosa Gastroesophageal ref lux disease, esophagitis presence not specified K21.9 ; Irritable bowel syndrome with constipation K58.1 ; Encounter for screening for malignant neoplasm of colon Z12.11 ; Constipation, unspecified constipation type K59.00 and Pancreatic cyst K86.2 [facility] [address] [place] [address] 04/03/2025 Amilcar Sosa Change in bowel habi ts R19.4 ; Irritable bowel syndrome with both constipation and diarrhea K58.2 ; GERD (gastroesophageal reflux disease) K21.9 and IPMN (intraductal papillary mucinous neoplasm) D49.0 [facility] [address] [address] 09/28/2024 Amilcar Sosa [facility] [address] [place] [address] 04/03/2025 Amilcar Sosa Assessments Encounter Date Diagnosis [...] will be having it done up at [facility] as it is ordered by her [place] physicians in regard to the follow-up of [...] will be having it done up at [facility] as it is ordered by her [place] physicians in regard to the follow-up of [...] will be having it done up at [facility] as it is ordered by her [place] physicians in regard to the follow-up of [...] will be having it done up at [facility] as it is ordered by her [place] physicians in regard to the follow-up of [...] (ICD-10 - K86.2) Need MRI report from [facility] from 06/2024 Overall, Cordell appears [...] questions I can be of assistance with. Crodell was comfortable with this plan. Thank you [...] Appt Details Provider Name:Amilcar Ingrid Sosa , 09/27/2025 09:00:00 AM, [address] [facility], [address], [place], [address], Insurance Providers Payer Name Payer Address Payer Phone Subscriber Number Group Number Insured Name Patient Relationship to Insured Coverage Start Date Coverage End Date MEDICARE OF [place] [address] [place] [address] [id number] CORDELL ORDAZ Self - patient is the insured [employer] ([employer]) [address] [place] [address] [id number] LENA Wright CORDELL Self - patient is [...] 11/18/2022 [facility] Corrales 06/2018 Uterine polyps Breast biopsy -2013--breast-left--LCIS Left ovary removed and appy Broken ankle/beau and screws right Cyst removed both breasts Tonsillectomy
--- OUTSIDE RECORDS SUMMARY | 2025-07-25 12:54 | XMS_ITS | Encounter Summary ---
Author Organization [facility] Address [address] [place] [address] Phone Care Team Providers Care Rattle Leak And Squeak Repairer Name Role Phone Regino Coleman MD Primary Care Provider Fallon Dillard MD Unavailable [phone] Jr Hogue MD Primary Care Provid er Encounter Details Date Type Department Care Team (Late st Contact Info) Description 04/27/2019 Procedure Pass [facility] MR Imaging, Black [address] [place] [address] Social History Tobacco Use Types Packs/Day Years [...] Contact Info) Description 08/15/2024 Procedure Pass [address] [address] 08/08/2025 10:00 AM EDT Appointment [address] [address] Ayaan Corrales MD, [place] [address] [place], [facility] [address] [place] [address] [email or web address] 08/08/2025 11:00 AM EDT Appointment [facility], X-Ray - [address] [place] [address] Ayaan Corrales MD, MS [address] [place], [facility] [address] [place] [address] [email or web address] 09/04/2025 11:50 AM EST Telemedicine [facility] Urology 45 [facility] [place] [address] Ayaan Corrales MD, MS [address] [place], [facility] [address]- [place] [address] [email or web address] documented as of this encounter Visit Diagnoses Not on filedocumented in this encounter Care Teams Rattle Leak And Squeak Repairer Relationship Specialty Start Date End Date Regino Coleman MD [address] [place] [address] PCP - General Internal Medicine 04/29/18 04/04/25 Jr Hogue MD [address] [place] [address] PCP - General Internal Medicine 04/05/25 Fallon Dillard MD [address] [place] [address] [email or web address] Referring Physician Hematology and Oncology 04/29/18 documented as of this encounter Additional Source Comments The information contained in this document represents components of the legal health record. It is not the complete legal health record.[facility]
--- OUTSIDE RECORDS SUMMARY | 2025-07-25 12:54 | XMS_ITS | Encounter Summary ---
Author Organization [facility] Address [address] [place] [address] Phone Care Team Providers Care Sociology Teacher Name Role Phone Regino Coleman MD Primary Care Provider Fallon Dillard MD Unavailable [phone] Jr Hogue MD Primary Care Provid er Encounter Details Date Type Department Care Team (Late st Contact Info) Description 06/10/2021 Ancillary Orders [facility],Outside [address] [address] System, Provider Not In, [place] [address] Social History Tobacco Use Types Packs/Day Years [...] st Contact Info) Description 08/15/2024 Procedure Pass [address] [address] 08/08/2025 10:00 AM EDT Appointment [address] [place] [address] Ayaan Corrales MD, MS [address] [place], [facility] [address] [place] [address] [email or web address] 08/08/2025 11:00 AM EDT Appointment [facility], X-Ray - [address] [place] [address] Ayaan Corrales MD, MS [address] [place], [facility] [address] [place] [address] [email or web address] 09/04/2025 11:50 AM EST Telemedicine [facility] Urology 45 [facility] [place] [address] Ayaan Corrales MD, MS [address] [place], [facility] [address] [place] [address] [email or web address] documented as of this encounter Results * XR Chest Outside (No Interpretation) (05/23/2020 12:00 AM EDT) Narrative SYSTEMGENERATED, DOCUMENTATION - 06/10/2021 7:18 AM EDT This study is for PACS storage only and not for interpretation. us Provider Not In System PhD IMG OUTSIDE IMAGING W /OUT INTERPRETATION Final Result documented in this encounter Visit Diagnoses Not on filedocumented in this encounter Care Teams Sociology Teacher Relationship Specialty Start Date End Date Regino Coleman MD [address] [place] [address] ROB Bronson [place] [address] PCP - General Internal Medicine 04/29/18 04/04/25 Jr Hogue MD [address] [place] [address] [place] [address] PCP - General Internal Medicine 04/05/25 Fallon Dillard MD [address] [place] [address] .br Referring Physician Hematology and Oncology 04/29/18 documented as of this encounter Additional Source Comments The information contained in this document represents components of the legal health record. It is not the complete legal health record.[facility]
--- OUTSIDE RECORDS SUMMARY | 2025-07-25 12:54 | XMS_ITS | Clinical Summary ---
Author Organization [facility] Address [address] [place] [address] Phone Care Team Providers Care Telegraph Repeater Mechanic Name Role Phone Fallon Dillard MD Unavailable [phone] Jr Hogue MD Primary Care Provid [...] with hand surgeon Dr. Mary Boss in [place] Regular use of meloxicam previously effective, but [...] will continue to follow up with her cinder crew worker to optimize renal function. Assessment & Plan [...] will continue to follow up with her cinder crew worker to optimize renal function. Assessment & Plan [...] initially though review of the pathology by [facility], Department of Pathology suggests that [...] st Contact Info) Description 08/15/2024 Procedure Pass [address] [address] 08/08/2025 10:00 AM EDT Appointment [address] [address] Ayaan Corrales MD, MS [address] [place] [address], [address] [address] [email or web address] 08/08/2025 11:00 AM EDT Appointment [facility], X-Ray - [address] [place], [place] [address] Ayaan Corrales MD, MS [address] [place], [facility] [address] [place] [address] [email or web address] 09/04/2025 11:50 AM EST Telemedicine [facility] Urology 45 [facility] [place] [address] Ayaan Corrales MD, MS 45 [facility], [facility] [address] [place], [place] [email or web address] Health Maintenance Due Date Last Done Comments LIPID PANEL 1954 DEPRESSION SCREENING 1966 HEPATITIS C SCREENING 1972 MAMMOGRAM 1994 COLOGUARD 1999 COLONOSCOPY 1999 COLORECTAL CANCER SCREENING 1999 FIT TEST 1999 FOBT 1999 SIGMOIDOSCOPY 1999 VIRTUAL COLONOSCOPY 1999 ZOSTER VACCINES (1 of 2) 2004 OSTEOPOROSIS SCREENING INITIAL (ONE-TIME) 2019 INFLUENZA VACCINE (#1) 2025 , 07/19/2018, 09/20/2017 COVID-19 VACCINE (2024- season) 2025 03/09/2025, 08/25/2024, 12/31/2023, Additional history exists Adult Td,Tdap Booster 05/01/2033 05/01/2023 RSV VACCINE Completed 09/27/2023 PNEUMOCOCCAL VACCINES (50+ years) Completed 03/09/2025, 12/29/2019 [...] file Insurance MEDICARE PART A & B [address] [facility] EXTENSION MEDICARE SUPPLEMENT MEDICARE PART A & B [facility] EXTENSION MEDICARE SUPPLEMENT MEDICARE PART A & B [facility] EXTENSION MEDICARE SUPPLEMENT MEDICARE PART A & B Member Subscriber Plan / Payer (Ef fective 2019-Present) Name:Rebekah Hahn Member ID:[id number] Relation to Subscriber:Self Name:Rebekah Hahn Subscriber ID:[id number] Payer ID:[id number] Group ID:Not on file Type:Medicare Address: Desk [address] [place] [id number] [place] [address] EXTENSION MEDICARE SUPPLEMENT MEDICARE PART A & B [facility] EXTENSION MEDICARE SUPPLEMENT MEDICARE PART A & B [employer] MEDICARE SUPPLEMENT MEDICARE PART A & B [employer] MEDICARE SUPPLEMENT MEDICARE PART A & B [facility] MEDICARE SUPPLEMENT MEDICARE PART A & B [facility] EXTENSION MEDICARE SUPPLEMENT Advance Directives For more information, please contact: [phone] (9AM - 5PM [facility], Wednesday-Wednesday) Documents on File Type Date Recorded Patient Client Account Assistant Expl anation Healthcare Proxy 06/09/2018 10:59 AM 09-19 * Full Code (Presumed) (Latest Code Status on File) Date Activated Date Inactivated Comments 06/16/2018 1:39 PM 06/18/2018 3:12 PM Healthcare Agents on File Name Relationship Healthcare Agent Relationship Communication Orlin Hahn Spouse .Primary Health Care Agent (Proxy form on file) Care Teams Telegraph Repeater Mechanic Relationship Specialty Start Date End Date Jr Hogue MD [address] [place] [address] PCP - General Internal Medicine 04/05/25 Fallon Dillard MD [address] [place] [address] [email or web address] Referring Physician Hematology and Oncology 04/29/18 Additional Source Comments The information contained in this document represents components of the legal health record. It is not the complete legal health record.[facility]
--- OUTSIDE RECORDS SUMMARY | 2025-07-25 12:54 | XMS_ITS | Encounter Summary ---
Author Organization [facility] Address [address] [place] [address] Phone Care Team Providers Care Sander Wooden Pencils Name Role Phone Regino Coleman MD Primary Care Provider Fallon Dillard MD Unavailable [phone] Jr Hogue MD Primary Care Provid er Encounter Details Date Type Department Care Team (Late st Contact Info) Description 06/16/[address] [facility] Periop [address] [place] [address] Social History Tobacco Use Types Packs/Day Years [...] st Contact Info) Description 08/15/2024 Procedure Pass [address] [address] 08/08/2025 10:00 AM EDT Appointment [address] [address] Ayaan Corrales MD, MS [address] [place] [address] [facility] [address] [place] [address] [email or web address] 08/08/2025 11:00 AM EDT Appointment [facility], X-Ray - [address] [place] [address] Ayaan Corrales MD, MS [address] [place], [facility] [address] [place] [address] [email or web address] 09/04/2025 11:[address] [facility] Urology 45 [facility] [place] [address] Ayaan Corrales MD, MS [address] [place], [facility] 11- [place] [address] [email or web address] documented as of this encounter Visit Diagnoses Not on filedocumented in this encounter Care Teams Sander Wooden Pencils Relationship Specialty Start Date End Date Regino Coleman MD [address] [place] [address] PCP - General Internal Medicine 04/29/18 04/04/25 Jr Hogue MD [address] [place] [address] PCP - General Internal Medicine 04/05/25 Fallon Dillard MD [address] [place] [address] [email or web address] Referring Physician Hematology and Oncology 04/29/18 documented as of this encounter Additional Source Comments The information contained in this document represents components of the legal health record. It is not the complete legal health record.[facility]
--- OUTSIDE RECORDS SUMMARY | 2025-07-25 12:54 | XMS_ITS | Encounter Summary ---
Author Organization [facility] Address [address] [place] [address] Phone Care Team Providers Care Supervisor Gelatin Plant Name Role Phone Regino Coleman MD Primary Care Provider Fallon Dillard MD Unavailable [phone] Jr Hogue MD Primary Care Provid er Encounter Details Date Type Department Care Team (Late st Contact Info) Description 05/11/2022 Procedure Pass [address] [address] Social History Tobacco Use Types Packs/Day Years [...] Contact Info) Description 08/15/2024 Procedure Pass [address] [address] 08/08/2025 10:00 AM EDT Appointment [address] [address] Ayaan Corrales MD, [place] 45 Regino [place], [facility] 11[address] [place] [address] [email or web address]@[email or web address] 08/08/2025 11:00 AM EDT Appointment [facility], X-Ray - [address] [place] [address] Ayaan Corrales MD, MS 45 Regino [place], [facility] [address] [place] [address] [email or web address]@[facility] 09/04/2025 11:50 AM EST Telemedicine [facility] Urology 45 [facility]2-3 [place] [address] Ayaan Corrales MD, MS 45 Regino [place], [facility] 11- [place] [address] DAKOTAH@[facility] documented as of this encounter Visit Diagnoses Not on filedocumented in this encounter Care Teams Supervisor Gelatin Plant Relationship Specialty Start Date End Date Regino Coleman MD [address] [place] [address] PCP - General Internal Medicine 04/29/18 04/04/25 Jr Hogue MD [address] [place] [address] PCP - General Internal Medicine 04/05/25 Fallon Dillard MD [address] [place] [address] [email or web address] [employer] Referring Physician Hematology and Oncology 04/29/18 documented as of this encounter Additional Source Comments The information contained in this document represents components of the legal health record. It is not the complete legal health record.[facility]
--- OUTSIDE RECORDS SUMMARY | 2025-07-25 12:54 | XMS_ITS | Encounter Summary ---
Author Organization [facility] Address [address] [place] [address] Phone Care Team Providers Care Campus Rep Name Role Phone Regino Coleman MD Primary Care Provider Fallon Dillard MD Unavailable [phone] Jr Hogue MD Primary Care Provid er Encounter Details Date Type Department Care Team (Late st Contact Info) Description 06/10/2021 Ancillary Orders [facility],Outside [address] [address] System, Provider Not In, [place] [address] Social History Tobacco Use Types Packs/Day Years [...] Contact Info) Description 08/15/2024 Procedure Pass [address] [address] 08/08/2025 10:00 AM EDT Appointment [address] [place] [address] Ayaan Corrales MD, MS 45 Regino [place], [facility] [address] [place] [address] DAKOTAH@[facility] 08/08/2025 11:00 AM EDT Appointment [facility], X-Ray - [address] [place] [address] Ayaan Corrales MD, MS 45 Regino [place], [facility] [address] [place] [address] DAKOTAH@[facility] 09/04/2025 11:50 AM EST Telemedicine [facility] Urology 45 [facility]2-3 [place] [address] Ayaan Corrales MD, MS 45 Regino [place], [facility] [address] [place] [address] DAKOTAH@[facility] documented as of [...] on filedocumented in this encounter Care Teams Campus Rep Relationship Specialty Start Date End Date Regino Coleman MD [address] [place] [address] ROB Bronson R[place] [address] PCP - General Internal Medicine 04/29/18 04/04/25 Jr Hogue MD [address] [place] [address] Tamanna Rob [place] [address] PCP - General Internal Medicine 04/05/25 Fallon Dillard MD [address] [place] [address] [email or web address] Referring Physician Hematology and Oncology 04/29/18 documented as of this encounter Additional Source Comments The information contained in this document represents components of the legal health record. It is not the complete legal health record.[facility]
--- OUTSIDE RECORDS SUMMARY | 2025-07-25 12:54 | XMS_ITS | Encounter Summary ---
Author Organization [facility] Address [address] [place] [address] Phone Care Team Providers Care Fitting Room Associate Name Role Phone Regino Coleman MD Primary Care Provider Fallon Dillard MD Unavailable Jr Hogue MD Primary Care Provid er Encounter Details Date Type Department Care Team (Late st Contact Info) Description 06/15/2019 Procedure Pass [facility] MR Imaging, Black [address] [place] [address] Social History Tobacco Use Types Packs/Day Years [...] Contact Info) Description 08/15/2024 Procedure Pass [address] [address] 08/08/2025 10:00 AM EDT Appointment [address] [address] Ayaan Corrales MD, MS 45 Regino [place], [facility] [address] [place] [address] DAKOTAH@[facility] 08/08/2025 11:00 AM EDT Appointment [facility], X-Ray - [address] [place] [address] Ayaan Corrales MD, MS 45 Regino [place], [facility] [address] [place] [address] DAKOTAH@[facility] 09/04/2025 11:50 AM EST Telemedicine [facility] Urology 45 [facility]2-3 [place] [address] Ayaan Corrales MD, MS 45 Regino [place], [facility] 11- [place] [address] DAKOTAH@[facility] documented as of this encounter Visit Diagnoses Not on filedocumented in this encounter Care Teams Fitting Room Associate Relationship Specialty Start Date End Date Regino Coleman MD [address] [place] [address] PCP - General Internal Medicine 04/29/18 04/04/25 Jr Hogue MD [address] [place] [address] PCP - General Internal Medicine 04/05/25 Fallon Dillard MD [address] [place] [address] [email or web address] Referring Physician Hematology and Oncology 04/29/18 documented as of this encounter Additional Source Comments The information contained in this document represents components of the legal health record. It is not the complete legal health record.[facility]
--- OUTSIDE RECORDS SUMMARY | 2025-07-25 12:54 | XMS_ITS | Encounter Summary ---
Author Organization [facility] Address [address] [place] [address] Phone Care Team Providers Care Biomedical Technician Name Role Phone Regino Coleman MD Primary Care Provider [phone] Encounter Details Date Type Department Care Team (Late st Contact Info) Description 01/06/2023 Telephone [facility] [address] [place] [address] Ying Medrano Social History Tobacco [...] appt w/ [facility] and fax order to [facility] and they will call and book sooner appt. Pt stated that she is going to see her magnaflux operator in 2 weeks and her MD stated she will do th US in office. Pls advise if you would like her magnaflux operator to do US or move forward with the hospital. Her magnaflux operator does not have a radiology department. * Telephone Encounter - Ying Medrano - 01/06/2023 9:51 AM EDT PT says she has renal ultrasound scheduled for 03/01/23. PT wants to be seen sooner, she is asking for an earlier appointment and is willing to commute to [place] if she can get a sooner appointment. documented in this encounter Plan of Treatment Not on file documented as of this encounter Visit Diagnoses Not on filedocumented in this encounter Care Teams Biomedical Technician Relationship Specialty Start Date End Date Regino Coleman MD [address] [place] [address] [address] [place] PCP - General 10/21/20 documented as of this encounter
--- OUTSIDE RECORDS SUMMARY | 2025-07-25 12:54 | XMS_ITS | Encounter Summary ---
Author Organization [facility] Address [address] [place] [address] Phone Care Team Providers Care Park Recreation Manager Name Role Phone Regino Coleman MD Primary Care Provider Fallon Dillard MD Unavailable [phone] Jr Hogue MD Primary Care Provid er Encounter Details Date Type Department Care Team (Late st Contact Info) Description 07/02/2020 Procedure Pass [address] [address] Social History Tobacco Use Types Packs/Day Years [...] st Contact Info) Description 08/15/2024 Procedure Pass [address] [address] 08/08/2025 10:00 AM EDT Appointment [address] [address] Ayaan Corrales MD, MS 45 Regino [place], [facility] 11-[address] [place] [address] [email or web address]@[email or web address] 08/08/2025 11:00 AM EDT Appointment [facility], X-Ray - [address] [place] [address] Ayaan Corrales MD, MS 45 Regino [place], [facility] [address] [place] [address] [email or web address]@[email or web address] 09/04/2025 11:50 AM EST Telemedicine [facility] Urology 45 [facility]2-3 [place] [address] Ayaan Corrales MD, MS 45 Regino [place], [facility] 11- [place] [address] DAKOTAH@[facility] documented as of this encounter Visit Diagnoses Not on filedocumented in this encounter Care Teams Park Recreation Manager Relationship Specialty Start Date End Date Regino Coleman MD [address] [place] [address] PCP - General Internal Medicine 04/29/18 04/04/25 Jr Hogue MD [address] [place] [address] PCP - General Internal Medicine 04/05/25 Fallon Dillard MD [address] [place] [address] [email or web address] [employer] Referring Physician Hematology and Oncology 04/29/18 documented as of this encounter Additional Source Comments The information contained in this document represents components of the legal health record. It is not the complete legal health record.[facility]
--- OUTSIDE RECORDS SUMMARY | 2025-07-25 12:54 | XMS_ITS | Encounter Summary ---
Author Organization [facility] Address [address] [place] [address] Phone Care Team Providers Care Mailroom Messenger Name Role Phone Regino Coleman MD Primary Care Provider Fallon Dillard MD Unavailable [phone] Jr Hogue MD Primary Care Provid er Encounter Details Date Type Department Care Team (Late st Contact Info) Description 05/24/2018 Procedure Pass [facility] OUTSIDE IMG [address] [place] [address] Social History Tobacco Use Types Packs/Day Years [...] st Contact Info) Description 08/15/2024 Procedure Pass [address] [address] 08/08/2025 10:00 AM EDT Appointment [address] [address] Ayaan Corrales MD, MS [address] [place] [address] [email or web address] 08/08/2025 11:00 AM EDT Appointment [facility], X-Ray - [address] [place] [address] Ayaan Corrales MD, [place] 45 [facility], [facility] 11[address] [place] [address] [email or web address] 09/04/2025 11:50 AM EST Telemedicine [facility] Urology 45 [facility]2-3 [place] [address] Ayaan Corrales MD, MS 45 [facility] [address] [place] [address] DAKOTAH@[facility] documented as of this encounter Visit Diagnoses Not on filedocumented in this encounter Care Teams Mailroom Messenger Relationship Specialty Start Date End Date Regino Coleman MD [address] [place] [address] PCP - General Internal Medicine 04/29/18 04/04/25 Jr Hogue MD [address] [place] [address] PCP - General Internal Medicine 04/05/25 Fallon Dillard MD [address] [place] [address] [email or web address] Referring Physician Hematology and Oncology 04/29/18 documented as of this encounter Additional Source Comments The information contained in this document represents components of the legal health record. It is not the complete legal health record.[facility]
--- OUTSIDE RECORDS SUMMARY | 2025-07-25 12:54 | XMS_ITS | Encounter Summary ---
Author Organization [facility] Address [address] [place] [address] Phone Care Team Providers Care Radio Time Buyer Name Role Phone Regino Coleman MD Primary Care Provider Fallon Dillard MD Unavailable [phone] Jr Hogue MD Primary Care Provid er Encounter Details Date Type Department Care Team (Late st Contact Info) Description 06/10/2021 Ancillary Orders [facility],Outside [address] [address] System, Provider Not In, [place] [address] Social History Tobacco Use Types Packs/Day Years [...] st Contact Info) Description 08/15/2024 Procedure Pass [address] [address] 08/08/2025 10:00 AM EDT Appointment [address] [place] [address] Ayaan Corrales MD, MS 45 Regino [place], [facility] [address] [place] [address] DAKOTAH@[email or web address] 08/08/2025 11:00 AM EDT Appointment [facility], X-Ray - [address] [place] [address] Ayaan Corrales MD, MS 45 Regino [place], [facility] [address] [place] [address] DAKOTAH@[email or web address] 09/04/2025 11:50 AM EST Telemedicine [facility] Urology 45 [facility]2-3 [place] [address] Ayaan Corrales MD, MS 45 Regino [place], [facility] [address] [place] [address] [email or web address] documented as of this encounter Results * MRI Abdomen Outside (No Interpretation) (06/19/2020 12:00 AM EDT) Narrative SYSTEMGENERATED, DOCUMENTATION - 06/10/2021 7:19 AM EDT This study is for PACS storage only and not for interpretation. us Provider Not In System PhD IMG OUTSIDE IMAGING W /OUT INTERPRETATION Final Result documented in this encounter Visit Diagnoses Not on filedocumented in this encounter Care Teams Radio Time Buyer Relationship Specialty Start Date End Date Regino Coleman MD [address] [place] [address] ROB Bronson RICKY [address] PCP - General Internal Medicine 04/29/18 04/04/25 Jr Hogue MD [address] [place] [address] [place] [address] PCP - General Internal Medicine 04/05/25 Fallon Dillard MD [address] [place] [address] [email or web address] Referring Physician Hematology and Oncology 04/29/18 documented as of this encounter Additional Source Comments The information contained in this document represents components of the legal health record. It is not the complete legal health record.[facility]
--- OUTSIDE RECORDS SUMMARY | 2025-07-25 12:55 | XMS_ITS | Clinical Summary ---
Author Organization [facility] Address [address] [facility] [place] [address] Care Team Providers Care Piano Regulator Name Role Phone Regino Coleman MD Primary Care Provider [phone] Allergies Active Allergy Reactions Criticality Noted Date [...] initially though review of the pathology by [facility], Department of Pathology suggests that it [...] date. Immunizations Immunization Administration Dates Next Due ProspX SARS-COV-2 12/14/2020 Joinnus SARS-COV-2 08/06/2021 Pneumococcal Conjugate 13-Valent 12/29/2019 Family [...] age to complete this topic Insurance Medicare [facility] Medicare [facility] Care Teams Piano Regulator Relationship Specialty Start Date End Date Regino Coleman MD [address] RICKY CARO PCP - General 10/21/20
--- OUTSIDE RECORDS SUMMARY | 2025-07-25 12:55 | XMS_ITS | Encounter Summary ---
Author Organization [facility] Address [address] [place] [address] Phone Care Team Providers Care Engineering Programmer Name Role Phone Regino Coleman MD Primary Care Provider Fallon Dillard MD Unavailable Jr Hogue MD Primary Care Provid er Encounter Details Date Type Department Care Team (Late st Contact Info) Description 07/07/2022 Procedure Pass [address] [address] Social History Tobacco Use Types Packs/Day Years [...] Contact Info) Description 08/15/2024 Procedure Pass [address] [address] 08/08/2025 10:00 AM EDT Appointment [address] [address] Ayaan Corrales MD, [place] 45 Regino [place], [facility] [address] [place] [address] DAKOTAH@[email or web address] 08/08/2025 11:00 AM EDT Appointment [facility], X-Ray - [address] [place] [address] Ayaan Corrales MD, MS 45 Regino [place], [facility] [address] [place] [address] DAKOTAH@[facility] 09/04/2025 11:50 AM EST Telemedicine [facility] Urology 45 [facility]2-3 [place] [address] Ayaan Corrales MD, MS 45 Regino [place], [facility] 11- [place] [address] DAKOTAH@[email or web address] documented as of this encounter Visit Diagnoses Not on filedocumented in this encounter Care Teams Engineering Programmer Relationship Specialty Start Date End Date Regino Coleman MD [address] [place] [address] PCP - General Internal Medicine 04/29/18 04/04/25 Jr Hogue MD [address] [place] [address] PCP - General Internal Medicine 04/05/25 Fallon Dillard MD [address] [place] [address] [email or web address] [employer] Referring Physician Hematology and Oncology 04/29/18 documented as of this encounter Additional Source Comments The information contained in this document represents components of the legal health record. It is not the complete legal health record.[facility]
--- OUTSIDE RECORDS SUMMARY | 2025-07-25 12:55 | XMS_ITS | Patient Health Record ---
Author Organization [facility] Address [address] [place] [address] Care Team Providers Care In Home Baby Sitter Name Role Phone Jr Hogue Primary Care Provider Black, Aye Unavailable [phone] Allergies Allergen (clinical drug ingredient) Drug/Non Drug [...] primary osteoarthritis of the ankle and/or foot ([id number]) Primary osteoarthrit is, left ankle and foot (M19.072) Active confirmed Vital Signs Blood pressure diastolic 75 mm Hg 05/24/2025 Height 5ft3in in 05/24/2025 Blood pressure systolic 121 mm Hg 05/24/2025 Weight 136 lbs 05/24/2025 BMI 24.09 kg/m2 05/24/2025 Procedures Procedure Date Ordered Date Performed Result Body Sit e , M7422-APLEX/INJECT, JOINT/BURSA 08/17/2024 N/A , X2502-JPILO/INJECT, JOINT/BURSA 05/24/2025 N/A Encounters Encounter Location Date Provider Diagnosis [facility] [place] [address] [place] [address] 08/17/2024 Aye Black Primary osteoarthrit is, left ankle and foot M19.072 ; Joint pain M25.50 ; Neuralgia and neuritis, unspecified M79.2 ; Hypertrophy of bone, 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 and Pain in left foot M79.[address] [address] 02/12/2025 Aye Bliss Primary osteoarthrit is, left [...] Other hammer toe(s) (acquired), right foot M20.[address] [address] 05/24/2025 Aye Bliss Primary osteoarthrit is, left ankle and foot M19.072 ; Joint pain M25.50 ; Neuralgia and neuritis, unspecified M79.2 and Hypertrophy of bone, 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 [facility] [address] [address] 12/11/2024 Aye Bliss [address] [address] 02/12/2025 Aye Bliss Assessments Encounter Date Diagnosis [...] X ray : Foot, right 3V 04/24/2013 42984-Qkye Destruction, 1-14 02/08/2023 57689-Bfkm Destruction, 1-12/08/2021, O6549-HYOVS/INJECT, JOINT/BURSA 0 04/06/2022 38792, S3509-UGLHC/INJECT, JOINT/BURSA 1 00, H2381-DFPXY/INJECT, JOINT/BURSA 0 02/08/2023, W9037-TLUMK/INJECT, JOINT/BURSA 1 11/02/201948236, X7661-HAKWI/INJECT, JOINT/BURSA 0 01/02/2021 47917, R3063-EXOUK/INJECT, JOINT/BURSA 0 05/05/2021 [address]6739, W4505-UQSUU/INJECT, JOINT/BURSA 1 [address], J2729-TUHZQ/INJECT, JOINT/BURSA 0 12/08/2021 76573, U0177-OVVXL/INJECT, JOINT/BURSA 0 04/08/2016 93136, H2670-STFAM/INJECT, JOINT/BURSA 0 11/02/2016 32993, K5037-GTUGT/INJECT, JOINT/BURSA 0 01/26/2017 [address]1411, S6660-GOOVB/INJECT, JOINT/BURSA 1 11/24/201607403, G3077-DZGJY/INJECT, JOINT/BURSA 0 12/10/2017 45918, H0612-PCOYK/INJECT, JOINT/BURSA 0 03/14/201813317, K1526-QLRDX/INJECT, JOINT/BURSA 1 10/29/201757282, W8758-JSAGC/INJECT, JOINT/BURSA 0 12/19/2018 28773, Z8260-WDGBT/INJECT, JOINT/BURSA 0 04/20/2019, P3079-LEGBS/INJECT, JOINT/BURSA 1 10/24/201813260, M3534-HVPAK/INJECT, JOINT/BURSA 0 01/01/202074340, B1578-CPGGV/INJECT, JOINT/BURSA 0 06/21/2023 26732, B1253-EOXKF/INJECT, JOINT/BURSA 0 11/01/202311661, M6194-YHWFA/INJECT, JOINT/BURSA 0 02/28/202407301, A0456-KZODV/INJECT, JOINT/BURSA 1 10/17/2023 51262, R5560-URFWU/INJECT, JOINT/BURSA 0 05/24/202547052,M9951-BXW TENDON SHEATH/LIGAMENT 0 05/02/2020 Next Appt Details Provider Name:Aye Miranda Izaiah , 08/27/2025 08:15:00 AM, [address] [place] [address], [place], [address], Insurance Providers Payer Name Payer Address Payer Phone Subscriber Number Group Number Insured Name Patient Relationship to Insured Coverage Start Date Coverage End Date Medicare National Govt [facility] [address] [facility] [address] [id number] Rebekah Suh Self - patient is the insured [employer] ([employer]) [address] RICK[place] ORTIZ [address] [id number] Rebekah Suh Self - patient is [...]
--- OUTSIDE RECORDS SUMMARY | 2025-07-25 12:55 | XMS_ITS | Encounter Summary ---
Author Organization [facility] Address [address] [place] [address] [place] [address] Phone Care Team Providers Care First Aid Nurse Name Role Phone Regino Coleman MD Primary Care Provider Fallon Dillard MD Unavailable [phone] Jr Hogue MD Primary Care Provid er Encounter Details Date Type Department Care Team (Late st Contact Info) Description 08/19/2023 Procedure Pass [facility], [address] [address] Social History Tobacco Use Types Packs/Day Years [...] Contact Info) Description 08/15/2024 Procedure Pass [address] [address] 08/08/2025 10:00 AM EDT Appointment [address] [address] Ayaan Corrales MD, [place] [address] [place] [address] [address] [place] [address] DAKOTAH@[email or web address] 08/08/2025 11:00 AM EDT Appointment [facility], X-Ray - [address] [place] [address] Ayaan Corrales MD, [address] [place] [address] DAKOTAH@[facility] 09/04/2025 11:50 AM EST Telemedicine [facility] Urology [address] [place], [place] [address] [place] [address] Ayaan Corrales MD, [address] [place] [address] DAKOTAH@[facility] documented as of this encounter Visit Diagnoses Not on filedocumented in this encounter Care Teams First Aid Nurse Relationship Specialty Start Date End Date Regino Coleman MD [address] [place] [address] [place] [address] PCP - General Internal Medicine 04/29/18 04/04/25 Jr Hogue MD [address] [place] [address] [place] [address] PCP - General Internal Medicine 04/05/25 Fallon Dillard MD [address] [place] [address] [email or web address] Referring Physician Hematology and Oncology 04/29/18 documented as of this encounter Additional Source Comments The information contained in this document represents components of the legal health record. It is not the complete legal health record.[facility]
--- OUTSIDE RECORDS SUMMARY | 2025-07-25 12:55 | XMS_ITS | Encounter Summary ---
Author Organization [facility] Address [address] [place] [phone] Phone Care Team Providers Care Pouch Making Machine Operator Name Role Phone Regino Coleman MD Primary Care Provider aFllon Dillard MD Unavailable [phone] Jr Hogue MD Primary Care Provid er Encounter Details Date Type Department Care Team (Late st Contact Info) Description 09/29/2018 Procedure Pass [facility] MR Imaging, Black [address] [place] [address] Social History Tobacco Use Types Packs/Day Years [...] st Contact Info) Description 08/15/2024 Procedure Pass [address] [address] 08/08/2025 10:00 AM EDT Appointment [address] [address] Ayaan Corrales MD, MS [address] [place], [facility] [address] [place] [address] [email or web address] 08/08/2025 11:00 AM EDT Appointment [facility], X-Ray - [address] [place] [address] Ayaan Corrales MD, MS 45 Regin[address] [place], [facility] [address] [place] [address] [email or web address] 09/04/2025 11:50 AM EST Telemedicine [facility] Urology 45 [facility] [place] [address] Ayaan Corrales MD, MS 45 Regin[address] [place], [facility] [address]- [place] [address] [email or web address] documented as of this encounter Visit Diagnoses Not on filedocumented in this encounter Care Teams Pouch Making Machine Operator Relationship Specialty Start Date End Date Regino Coleman MD [address] [place] [phone] PCP - General Internal Medicine 04/29/18 04/04/25 Jr Hogue MD [address] [place] [phone] PCP - General Internal Medicine 04/05/25 Fallon Dillard MD [address] [place] [address] [email or web address] Referring Physician Hematology and Oncology 04/29/18 documented as of this encounter Additional Source Comments The information contained in this document represents components of the legal health record. It is not the complete legal health record.[facility]
--- OUTSIDE RECORDS SUMMARY | 2025-07-25 12:55 | XMS_ITS | Encounter Summary ---
Author Organization [facility] Address [address] [place] [phone] Phone Care Team Providers Care Custom Car Builder Name Role Phone Regino Coleman MD Primary Care Provider Fallon Dillard MD Unavailable [phone] Jr Hogue MD Primary Care Provid er Encounter Details Date Type Department Care Team (Late st Contact Info) Description 06/23/2018 Procedure Pass [facility] Radiology [address] [place] [address] Social History Tobacco Use Types Packs/Day Years [...] Contact Info) Description 08/15/2024 Procedure Pass [address] [address] 08/08/2025 10:00 AM EDT Appointment [address] [address] Ayaan Corrales MD, MS 45 Regino [place], [facility] [address] [place] [address] [email or web address] 08/08/2025 11:00 AM EDT Appointment [facility], X-Ray - [address] [place] [address] Ayaan Corrales MD, MS 45 Regino [place], [facility] [address] [place] [address] [email or web address] 09/04/2025 11:50 AM EST Telemedicine [facility] Urology 45 [facility] [place] [address] Ayaan Corrales MD, MS 45 Regino [place], [facility] [address] [place] [address] [email or web address] documented as of this encounter Visit Diagnoses Not on filedocumented in this encounter Care Teams Custom Car Builder Relationship Specialty Start Date End Date Regino Coleman MD [address] [place] [phone] PCP - General Internal Medicine 04/29/18 04/04/25 Jr Hogue MD [address] [place] [phone] PCP - General Internal Medicine 04/05/25 Fallon Dillard MD [address] [place] [phone] [email or web address] Referring Physician Hematology and Oncology 04/29/18 documented as of this encounter Additional Source Comments The information contained in this document represents components of the legal health record. It is not the complete legal health record.[facility]
--- OUTSIDE RECORDS SUMMARY | 2025-07-25 12:55 | XMS_ITS | Encounter Summary ---
Author Organization [facility] Address [address] [place] [address] Phone Care Team Providers Care Superintendent Operating Name Role Phone Regino Coleman MD Primary Care Provider Fallon Dillard MD Unavailable [phone] Jr Hogue MD Primary Care Provid er Encounter Details Date Type Department Care Team (Late st Contact Info) Description 01/05/2019 Procedure Pass [facility] MR Imaging, Black [address] [place] [address] Social History Tobacco Use Types Packs/Day Years [...] st Contact Info) Description 08/15/2024 Procedure Pass [address] [address] 08/08/2025 10:00 AM EDT Appointment [address] [address] Ayaan Corrales MD, MS 45 Regino [place], [facility] [address] [place] [address] [email or web address] 08/08/2025 11:00 AM EDT Appointment [facility], X-Ray - [address] [place] [address] Ayaan Corrales MD, MS 45 Regino [place], [facility] [address] [place] [address] [email or web address] 09/04/2025 11:50 AM EST Telemedicine [facility] Urology [address] [facility] [place] [address] Ayaan Corrales MD, MS 45 Regin[address] [place], [facility] [address] [place] [address] [email or web address] documented as of this encounter Visit Diagnoses Not on filedocumented in this encounter Care Teams Superintendent Operating Relationship Specialty Start Date End Date Regino Coleman MD [address] [place] [phone] PCP - General Internal Medicine 04/29/18 04/04/25 Jr Hogue MD [address] [place] [phone] PCP - General Internal Medicine 04/05/25 Fallon Dillard MD [address] [place] [address] [email or web address] Referring Physician Hematology and Oncology 04/29/18 documented as of this encounter Additional Source Comments The information contained in this document represents components of the legal health record. It is not the complete legal health record.[facility]
== END 2025-07-25 10:47 | disposition home or self-care (01) ==
LOC: HO.HMGAL 10:45
PROVIDERS: PCP Internal Medicine; Visit Provider Registered Nurse Emergency
DX: J30.89 Other allergic rhinitis (principal)
CPT/HCPCS: 95117; 95165

== ENCOUNTER 2025-08-01 10:49 | Outpatient (AMB) | payer MEDICARE, OTHER, SELFPAY ==
--- OUTSIDE RECORDS SUMMARY | 2024-07-03 05:15 | XMS_ITS ---
Author Organization [facility] Address [address] [place] [phone] Care Team Providers Care Trial Examiner Name Role Phone Jr Hogue Primary Care Provider Aye Bliss [phone] Encounters Encounter Location Date Provider Diagnosis [address] [address] 07/03/2024 Aye Bliss Plan Of Treatment Next Appt Details Provider Name:Aye A Izaiah , 08/27/2025 08:15:00 AM, [address] [place] [address], [phone], Progress Notes * Alexander HAHNeDOB: [birth year] (69 yo F)Acc No.[id number]:07/03/2024 Progress Note Patient: Rebekah POLO Provider: Alicja Bliss DPM :1955 A ge:68 Y S ex:Female Date:07/03/2024 Address:[address] [place] [address] [place], [phone] Pcp:Jr Hogue Subjective: * Chief Complaints: * [...] 0 07/03/2024 Generated for Chandler Ortega/Nirav on: 02:02 PM EDT
--- OUTSIDE RECORDS SUMMARY | 2024-12-11 04:15 | XMS_ITS ---
Author Organization [facility] Address [address] [place] [address] Care Team Providers Care Charge Histotechnologist Name Role Phone Lennie, Kartik Primary Care Provider Black, Aye Unavailable [phone] Allergies Allergen (clinical drug ingredient) Drug/Non Drug [...] Negative Encounters Encounter Location Date Provider Diagnosis [facility] [place] [address] [place] [address] 12/11/2024 Aye Bliss Plan Of Treatment Next Appt Details Provider Name:Aye Bliss , 08/27/2025 08:15:00 AM, [address] [place], [address], Progress Notes * Ashvin HAHNOB: [birth year] (69 yo F)Acc No.[id number]:12/11/2024 Progress Note Patient: Rebekah POLO Provider: Alicja Bilss DPM :1955 A ge:69 Y S ex:Female Date:12/11/2024 Address:[address] [place] [address] Pcp:Jr Hogue Subjective: * Chief Complaints: * [...] denies.? C ardiovascular: Pacemaker d enies. 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 W PW d enies. C [...] eakness d enies. P odiatric: Comments S [facility] for comments. I nteg.: Marques d [...] 0 12/11/2024 Generated for Chandler bentley/Brennon/Nirav on: 02:01 PM EDT
--- OUTSIDE RECORDS SUMMARY | 2025-07-04 04:30 | XMS_ITS ---
Author Organization [facility] Address [address] [facility] [place] [address] Care Team Providers Care Varying Exceptionalities Teacher Name Role Phone DESHAUN OROURKE Primary Care Provider Amilcar Santiago [phone] REASON FOR VISIT gerd,IBS,change in bowel habits Encounters Encounter Location Date Provider Diagnosis [facility] [address] [place] [phone] 07/04/2025 Amilcar Sosa Plan Of Treatment Next Appt Details Provider Name:Amilcar Sosa , 09/27/2025 09:00:00 AM, [address] [place] [address], [address], [place], [address], Progress Notes * CORDELL COVARRUBIAS EDOB:[birth year] (69 yo F)Acc No.[id number]:07/04/2025 EGD and COL/MAC Patient: Kimberly JIMY CORDELL Mcnair Provider: Gary Sosa MD :1955 A ge:69 Y S ex:Female Date:07/04/2025 Address:[address] [place] Pcp:DESHAUN OROURKE Subjective: * Chief Complaints: * 1 . gerd,IBS,change in bowel habits. * Medical History: Objective: * Vitals: Assessment: Plan: * Treatment: * * The named appointment provid er may or may not be the originator of this progress note, and it is not deemed complete until electronically signed by the appointment provider. Sign off status: Pending * Provider: Gary oSsa MD Date: 0 07/04/2025 Generated for Chandler bentley/Brennon/Nirav on: 02:02 PM EDT
[2025-08-01 09:54] VITALS: BP 130/84; PULSE 81; RESP 16; TEMP 36.8; O2SAT 98; BMI 24.2
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
--- OUTSIDE RECORDS SUMMARY | 2025-08-01 14:03 | XMS_ITS | Patient Health Record ---
Author Organization [facility] Address [address] [place] [address] Care Team Providers Care Cardiac Catheterization Technologist Name Role Phone DESHAUN OROURKE Primary Care Provider Amilcar Santiago [phone] Allergies No Known Allergies Results Component Value Reference Range Notes Pathology (Not yet reviewed by provider) Interpretation: Performing Lab:[facility], [address] [place] [phone] Notes/Report: Reason For Referral No Information Medications [...] Status Risk Notes Problem Irritable bowel syndrome (42285070) Irritable bowel syndrome (K58.9) Active confirmed Problem Screening for malignant neoplasm of colon (110664355) Encounter for screening for malignant neoplasm of colon (Z12.11) Active confirmed Problem Diarrhea (68710536) Diarrhea (R19.7) Active con firmed Problem Change in bowel habit (24231682) Change in bowel habits (R19.4) Active confirmed Problem Screening for malignant neoplasm of rectum (558730749) Encounter for screening for malignant neoplasm of rectum (Z12.12) Active confirmed Problem Blood in stool (831895703) Blood in stool (K92.1) Active confirmed Problem Gastroesophageal reflux disease without esophagitis (715152060) Gastroesophageal reflux disease without esophagitis (K21.9) Active confirmed Problem Gastroesophageal reflux disease (121090234) Gastroesophageal reflux disease, esophagitis presence not specified (K21.9) Active confirmed Problem Pancreatic cyst (56827915) 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) Active confirmed Problem Constipation (83448978) Constipation, unspecified constipation type (K59.00) Active confirmed Problem Left lower quadrant pain (678513727) Abdominal pain, left lower quadrant (R10.32) Active confirmed Problem Gastroesophageal reflux disease (696146335) GERD (gastroesophageal reflux disease) (K21.9) Active confirmed Problem Irritable bowel syndrome characterized by constipation (589287263) Irritable bowel syndrome with constipation (K58.1) Active confirmed Problem Irritable bowel syndrome (72066411) Irritable bowel syndrome with both constipation and diarrhea (K58.2) Active confirmed Problem Thrombocytosis (disorder) (0361394) Thrombocytosis, unspecified (D75.839) Active confirmed Problem Neoplasm of digestive system (329824647) IPMN (intraductal papillary mucinous neoplasm) (D49.0) Active confirmed Vital Signs Blood pressure diastolic 77 mm Hg 04/03/2025 Height 64 in 04/03/2025 Blood pressure systolic 111 mm Hg 04/03/2025 Weight 136 lbs 04/03/2025 BMI 23.34 kg/m2 04/03/2025 Procedures Procedure Date Ordered Date Performed Result Body Sit e UPPER GI ENDOSCOPY 04/03/2025 N/A COLONOSCOPY 04/03/2025 N/A Encounters Encounter Location Date Provider Diagnosis [facility] [address] [place], [place] [id number] 07/04/2025 Amilcar Sosa [facility] [address] [facility] [address] [place] [address] 09/28/2024 Amilcar Sosa Gastroesophageal ref lux disease, esophagitis presence not specified K21.9 ; Irritable bowel syndrome with constipation K58.1 ; Encounter for screening for malignant neoplasm of colon Z12.11 ; Constipation, unspecified constipation type K59.00 and Pancreatic cyst K86.2 [facility] [address] [place] [address] 04/03/2025 Amilcar Sosa Change in bowel habi ts R19.4 ; Irritable bowel syndrome with both constipation and diarrhea K58.2 ; GERD (gastroesophageal reflux disease) K21.9 and IPMN (intraductal papillary mucinous neoplasm) D49.0 [facility] [address] [address] 09/28/2024 Amilcar Sosa [facility] [address] [place] [address] 04/03/2025 Amilcar Sosa Assessments Encounter Date Diagnosis [...] will be having it done up at [facility] as it is ordered by her [facility] in regard to the follow-up of [...] will be having it done up at [facility] as it is ordered by her [facility] in regard to the follow-up of [...] will be having it done up at [facility] as it is ordered by her [facility] in regard to the follow-up of [...] will be having it done up at [facility] as it is ordered by her [facility] in regard to the follow-up of [...] (ICD-10 - K86.2) Need MRI report from [facility] from 06/2024 Overall, Cordell appears well. We [...] Ingrid Sosa , 09/27/2025 09:00:00 AM, [address] [facility], [address], [place], [address], Insurance Providers Payer Name Payer Address Payer Phone Subscriber Number Group Number Insured Name Patient Relationship to Insured Coverage Start Date Coverage End Date MEDICARE OF [place] [address] [place] [address] [id number] CORDELL ORDAZ Self - patient is the insured A [employer] (m[employer]p-labs) [address] [place] [id number] LENA Wright CORDELL Self - patient is [...] 11/18/2022 [facility] Corrales 06/2018 Uterine polyps Breast biopsy -2013--breast-left--LCIS Left ovary removed and appy Broken ankle/beau and screws right Cyst removed both breasts Tonsillectomy
--- OUTSIDE RECORDS SUMMARY | 2025-08-01 14:03 | XMS_ITS | Patient Health Record ---
Author Organization [facility] Address [address] [place] [address] Care Team Providers Care Residential Advisor Name Role Phone Jr Hogue Primary Care Provider Black, Aye Unavailable [phone] Allergies Allergen (clinical drug ingredient) Drug/Non Drug [...] primary osteoarthritis of the ankle and/or foot (889732457) Primary osteoarthrit is, left ankle and foot (M19.072) Active confirmed Vital Signs Blood pressure diastolic 75 mm Hg 05/24/2025 Height 5ft3in in 05/24/2025 Blood pressure systolic 121 mm Hg 05/24/2025 Weight 136 lbs 05/24/2025 BMI 24.09 kg/m2 05/24/2025 Procedures Procedure Date Ordered Date Performed Result Body Sit e , W2043-QHNBO/INJECT, JOINT/BURSA 08/17/2024 N/A , I8931-FLVEY/INJECT, JOINT/BURSA 05/24/2025 N/A Encounters Encounter Location Date Provider Diagnosis [facility] [address] [place] [address] 08/17/2024 Aye Black Primary osteoarthrit is, left ankle and foot M19.072 ; Joint pain M25.50 ; Neuralgia and neuritis, unspecified M79.2 ; Hypertrophy of bone, 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 [address] [address] 12/11/2024 Aye Bliss [address] [address] 02/12/2025 Aye Bliss Assessments Encounter Date Diagnosis [...] X ray : Foot, right 3V 04/24/2013 86664-Qusu Destruction, 1-14 02/08/2023 36770-Lxgs Destruction, 1-12/08/2021, P2875-QIMEB/INJECT, JOINT/BURSA 0 04/06/2022 72235, D0175-JJOFG/INJECT, JOINT/BURSA 1 00, Z2675-UTCHJ/INJECT, JOINT/BURSA 0 02/08/2023, L7218-GUANO/INJECT, JOINT/BURSA 1 11/02/201948898, N0872-NVWRF/INJECT, JOINT/BURSA 0 01/02/2021 53282, L9273-IPRTH/INJECT, JOINT/BURSA 0 05/05/2021 10286, S6702-DENZD/INJECT, JOINT/BURSA 1 97497, P4341-SMVTC/INJECT, JOINT/BURSA 0 12/08/2021 08834, Y5091-ZTRVP/INJECT, JOINT/BURSA 0 04/08/2016 27457, M5810-GMFCO/INJECT, JOINT/BURSA 0 11/02/2016 47966, M5632-FXMUY/INJECT, JOINT/BURSA 0 01/26/2017 09396, J5688-UDPQQ/INJECT, JOINT/BURSA 1 11/24/201657163, V6312-REXTC/INJECT, JOINT/BURSA 0 12/10/2017 72649, L5102-MYADS/INJECT, JOINT/BURSA 0 03/14/201815083, E8271-JZTAN/INJECT, JOINT/BURSA 1 10/29/201735610, H8986-JVKWJ/INJECT, JOINT/BURSA 0 12/19/2018 78115, E7600-OWDNJ/INJECT, JOINT/BURSA 0 04/20/2019, R9682-ZPBCN/INJECT, JOINT/BURSA 1 10/24/201842227, T8899-GVDIS/INJECT, JOINT/BURSA 0 01/01/202077741, B6054-VKCAQ/INJECT, JOINT/BURSA 0 06/21/2023 90596, I2671-XFAFB/INJECT, JOINT/BURSA 0 11/01/202332612, D1343-FSVPL/INJECT, JOINT/BURSA 0 02/28/202498225, T8529-IDRMV/INJECT, JOINT/BURSA 1 10/17/2023 32134, V4390-UJNCL/INJECT, JOINT/BURSA 0 05/24/202550309,O0243-CKC TENDON SHEATH/LIGAMENT 0 05/02/2020 Next Appt Details Provider Name:Aye Miranda Izaiah , 08/27/2025 08:15:00 AM, [address] [place] [address], [place], [address], Insurance Providers Payer Name Payer Address Payer Phone Subscriber Number Group Number Insured Name Patient Relationship to Insured Coverage Start Date Coverage End Date Medicare National Govt [facility] [address] [facility] [place] [address] [id number] Rebekah Suh Self - patient is the insured [employer] (Unic[employer]) [address] [place] [address] [phone] [id number] Rebekah Suh Self - patient is [...]
== END 2025-08-01 11:18 | disposition home or self-care (01) ==
LOC: HO.HMCHD 10:50
PROVIDERS: PCP Internal Medicine; Visit Provider Student in an Organized Health Care Education/Training Program
DX: R10.9 Unspecified abdominal pain (principal); Z90.5 Acquired absence of kidney; G43.009 Migraine without aura, not intractable, without status migrainosus; Z86.000 Personal history of in-situ neoplasm of breast; D72.821 Monocytosis (symptomatic); M47.816 Spondylosis without myelopathy or radiculopathy, lumbar region; K21.9 Gastro-esophageal reflux disease without esophagitis; Z85.528 Personal history of other malignant neoplasm of kidney

== ENCOUNTER 2025-08-01 11:24 | Outpatient (REF) | payer MEDICARE, OTHER, SELFPAY ==
[2025-08-01 12:33] LABS: Baso%MD 0.4 %; Eos%MD 3.2 %; Hematocrit 42.0 % (37.0-47.0); Hemoglobin 13.5 g/dl (12.0-16.0); IG%MD 0.3 %; Lymph%MD 27.4 %; Mean Corpuscular HGB Conc 32.1 g/dl (31.0-35.0); Mean Corpuscular Hemoglobin 29.5 pg (27.0-33.0); Mean Corpuscular Volume 91.9 fL (80.0-98.0); Mono%MD 9.2 %; NRBC Abs Auto 0.000 X10*3/uL (0.0-0.012); NRBC Pct Auto 0.0 /100WBC (0.0-0.2); Neut%MD 59.5 %; Platelet Count 384 X10*3/uL (160-400); Red Blood Count 4.57 X10*6/uL (4.20-5.50); White Blood Count 7.6 X10*3/uL (4.8-10.8)
[2025-08-01 14:35] LABS: Atypical Lymph Absolute Manual 0.1 x10*3/uL; Atypical Lymphs Percent Manual 1 % (0-6); Band Neutrophils Percent 1 % (3-5); Basophils Abs Manual 0.1 X10*3/uL (0.0-0.2); Basophils Percent Manual 1 % (0-2); Eosinophils Absolute Manual 0.2 X10*3/uL (0.0-0.4); Eosinophils Percent Manual 3 % (0-4); Lymphocytes Absolute Manual 1.7 X10*3/uL (1.2-4.9); Lymphocytes Percent Manual 23 % (20-40); Metamyelocytes Absolute 0.1 X10*3/uL; Metamyelocytes Percent 1 %; Monocytes Absolute Manual 0.3 X10*3/uL (0.1-1.2); Monocytes Percent Manual 4 % (2-11); Neutrophils Absolute Manual 5.1 X10*3/uL (2.0-8.3); Neutrophils Percent Manual 66 % (45-73)
[2025-08-01 14:37] LABS: Burr Cells 1+ (0-2) /OIF; Large Platelet PRESENT; RBC Morphology NOTED; Toxic Vacuolation PRESENT
--- OUTSIDE RECORDS SUMMARY | 2025-08-01 15:42 | XMS_ITS | Encounter Summary ---
Author Organization [facility] Address [address] [place] [address] Phone Care Team Providers Care Industrial Sweeper Cleaner Name Role Phone Regino Coleman MD Primary Care Provider Fallon Dillard MD Unavailable [phone] Jr Hogue MD Primary Care Provid er Encounter Details Date Type Department Care Team (Late st Contact Info) Description 05/24/2018 Procedure Pass [facility] OUTSIDE IMG [address] [place] [address] Social History Tobacco Use Types Packs/Day Years [...] st Contact Info) Description 08/15/2024 Procedure Pass [address] [place] [address] 08/08/2025 10:00 AM EDT Appointment [address] [place] [address] Ayaan Corrales MD, [place] 45 [facility], [address] [address] [email or web address] 08/08/2025 11:00 AM EDT Appointment [facility], X-Ray - [address] [place] [address] Ayaan Corrales MD, MS 45 Regino [place], [facility] [address] [place] [address] [email or web address] 09/04/2025 11:50 AM EST Telemedicine [facility] Urology 45 [facility] [place] [address] Ayaan Corrales MD, MS 45 [facility] [address] [place] [address] [email or web address] documented as of this encounter Visit Diagnoses Not on filedocumented in this encounter Care Teams Industrial Sweeper Cleaner Relationship Specialty Start Date End Date Regino Coleman MD [address] [place] [address] PCP - General Internal Medicine 04/29/18 04/04/25 Jr Hogue MD [address] [place] [address] PCP - General Internal Medicine 04/05/25 Fallon Dillard MD [address] [place] [address] [email or web address] Referring Physician Hematology and Oncology 04/29/18 documented as of this encounter Additional Source Comments The information contained in this document represents components of the legal health record. It is not the complete legal health record.[facility]
--- OUTSIDE RECORDS SUMMARY | 2025-08-01 15:42 | XMS_ITS | Encounter Summary ---
Author Organization [facility] Address [address] [place] [address] Phone Care Team Providers Care Supervisor Mold Cleaning And Storage Name Role Phone Regino Coleman MD Primary Care Provider Fallon Dillard MD Unavailable [phone] Jr Hogue MD Primary Care Provid er Encounter Details Date Type Department Care Team (Late st Contact Info) Description 06/16/2018 Procedure Pass [facility] Periop [address] [place] [address] Social History Tobacco Use Types Packs/Day Years [...] Contact Info) Description 08/15/2024 Procedure Pass [address] [place] [address] 08/08/2025 10:00 AM EDT Appointment [address] [place] [address] Ayaan Corrales MD, MS [address] [place] [address] [address] [place] [address] [email or web address] 08/08/2025 11:00 AM EDT Appointment [facility], X-Ray - [address] [place] [address] Ayaan Corrales MD, MS 45 Regino [place], [facility] [address] [place] [address] [email or web address] 09/04/2025 11:50 AM EST Telemedicine [facility] Urology 45 [facility] [place] [address] Ayaan Corrales MD, MS 45 Regino [place], [facility] 11- [place] [address] [email or web address] documented as of this encounter Visit Diagnoses Not on filedocumented in this encounter Care Teams Supervisor [employer] Cleaning [employer] Relationship Specialty Start Date End Date Regino Coleman MD [address] [place] [address] [place] [address] PCP - General Internal Medicine 04/29/18 04/04/25 Jr Hogue MD [address] [place] [address] PCP - General Internal Medicine 04/05/25 Fallon Dillard MD [address] [place] [address] [email or web address] Referring Physician Hematology and Oncology 04/29/18 documented as of this encounter Additional Source Comments The information contained in this document represents components of the legal health record. It is not the complete legal health record.[facility]
--- OUTSIDE RECORDS SUMMARY | 2025-08-01 15:44 | XMS_ITS | Encounter Summary ---
Author Organization [facility] Address [address] [place] [address] Phone Care Team Providers Care Noise Tester Name Role Phone Regino Coleman MD Primary Care Provider Fallon Dillard MD Unavailable [phone] Jr Hogue MD Primary Care Provid er Encounter Details Date Type Department Care Team (Late st Contact Info) Description 07/02/2020 Procedure Pass [address] [address] Social History Tobacco Use Types Packs/Day Years [...] Contact Info) Description 08/15/2024 Procedure Pass [address] [place] [address] 08/08/2025 10:00 AM EDT Appointment [address] [place] [address] Ayaan Corrales MD, MS 45 Regino [place], [facility] [address] [place] [address] [email or web address] 08/08/2025 11:00 AM EDT Appointment [facility], X-Ray - [address] [place] [address] Ayaan Corrales MD, MS 45 Regino [place], [facility] [address] [place] [address] [email or web address] 09/04/2025 11:50 AM EST Telemedicine [facility] Urology 45 [facility] [place] [address] Ayaan Corrales MD, MS 45 Regino [place], [facility] [address] [place] [address] [email or web address] documented as of this encounter Visit Diagnoses Not on filedocumented in this encounter Care Teams Noise Tester Relationship Specialty Start Date End Date Regino Colemna MD [address] [place] [address] PCP - General Internal Medicine 04/29/18 04/04/25 Jr Hogue MD [address] [place] [address] PCP - General Internal Medicine 04/05/25 Fallon Dillard MD [address] [place] [address] [email or web address] Referring Physician Hematology and Oncology 04/29/18 documented as of this encounter Additional Source Comments The information contained in this document represents components of the legal health record. It is not the complete legal health record.[facility]
--- OUTSIDE RECORDS SUMMARY | 2025-08-01 15:44 | XMS_ITS | Encounter Summary ---
Author Organization [facility] Address [address] [place] [address] Phone Care Team Providers Care Material Requirements Worker Name Role Phone Regino Coleman MD Primary Care Provider Fallon Dillard MD Unavailable Jr Hogue MD Primary Care Provid er Encounter Details Date Type Department Care Team (Late st Contact Info) Description 05/11/2022 Procedure Pass [address] [address] Social History Tobacco Use Types Packs/Day Years [...] st Contact Info) Description 08/15/2024 Procedure Pass [address] [place] [address] 08/08/2025 10:00 AM EDT Appointment [address] [place] [address] Ayaan Corrales MD, MS 45 Regino [place], [facility] [address] [place] [address] [email or web address] 08/08/2025 11:00 AM EDT Appointment [facility], X-Ray - [address] Pat[place]urtain[place] [address] Ayaan Corrales MD, MS 45 Regino [place], [facility] [address] [place] [address] [email or web address]@[email or web address] 09/04/2025 11:50 AM EST Telemedicine [facility] Urology 45 [facility] [place] [address] Ayaan Corrales MD, MS 45 Regino [place], [facility] [address] [place] [address] [email or web address]@[email or web address] documented as of this encounter Visit Diagnoses Not on filedocumented in this encounter Care Teams Material Requirements Worker Relationship Specialty Start Date End Date Regino Coleman MD [address] [place] [address] PCP - General Internal Medicine 04/29/18 04/04/25 Jr Hogue MD [address] [place] [address] PCP - General Internal Medicine 04/05/25 Fallon Dillard MD [address] [place] [address] [email or web address] Referring Physician Hematology and Oncology 04/29/18 documented as of this encounter Additional Source Comments The information contained in this document represents components of the legal health record. It is not the complete legal health record.[facility]
--- OUTSIDE RECORDS SUMMARY | 2025-08-01 15:45 | XMS_ITS | Clinical Summary ---
Author Organization [facility] Address [address] [place] [address] Phone Care Team Providers Care Bank Teller Machine Mechanic Name Role Phone Fallon Dillard MD [...] with hand surgeon Dr. Mary Boss in [place] Regular use of meloxicam previously effective, but [...] & Plan (07/02/2020 10:57 AM EDT): Assessment: Rebekha Hahn is a 64 y.o. female who [...] will continue to follow up with her cardiology associate to optimize renal function. Assessment & Plan [...] will continue to follow up with her cardiology associate to optimize renal function. Assessment & Plan [...] initially though review of the pathology by [facility], Department of Pathology suggests that it [...] EDT Inhaled Oxygen Concentration - - Weight 61.2 kg (135 lb) 07/31/2025 6:09 PM EDT Height 160 cm (5' 3 ) 07/31/2025 6:09 PM EDT Body Mass Index 23.91 07/31/2025 6:09 PM EDT Plan of Treatment Upcoming Encounters Date Type Department Care Team (Late st Contact Info) Description 08/15/2024 Procedure Pass [address] [place] [address] 08/08/2025 10:00 AM EDT Appointment [address] [place] [address] Ayaan Corrales MD, MS [address] [place] [address] [email or web address] 08/08/2025 11:00 AM EDT Appointment [facility], X-Ray - [address] [place], [place] [address] Ayaan Corrales MD, MS 45 [facility], [facility] [address] [place] [address] DAKOTAH@[email or web address] 09/04/2025 11:50 AM EST Telemedicine [facility] Urology 45 [facility] [place] [address] Ayaan Corrales MD, MS 45 [facility], [facility] [address] [place] [address] DAKOTAH@[facility] Health Maintenance Due Date Last Done Comments [...] file Insurance MEDICARE PART A & B [employer] [place] [address] MEDICARE PART A & B [employer] MEDICARE SUPPLEMENT MEDICARE PART A & B [facility] [employer] MEDICARE SUPPLEMENT MEDICARE PART A & B Member Subscriber Plan / Payer (Ef fective 2019-Present) Name:Rebekah Hahn Member ID:[id number] Relation to Subscriber:Self Name:Rebekah Hahn Subscriber ID:[id number] Payer ID:[id number] Group ID:Not on file Type:Medicare Address: [employer] [address] [place] [address] [place] [address] [employer] MEDICARE SUPPLEMENT MEDICARE PART A & B [facility] [employer] MEDICARE SUPPLEMENT MEDICARE PART A & B [employer] MEDICARE SUPPLEMENT MEDICARE PART A & B [employer] MEDICARE SUPPLEMENT MEDICARE PART A & B [facility] MEDICARE SUPPLEMENT MEDICARE PART A & B [facility] [employer] MEDICARE SUPPLEMENT Advance Directives For more information, please contact: [phone] (9AM - 5PM [facility], Wednesday-Wednesday) Documents on File Type Date Recorded Patient Rotating Equipment Specialist Expl anation Healthcare Proxy 06/09/2018 10:59 AM 09-19 * Full Code (Presumed) (Latest Code Status on File) Date Activated Date Inactivated Comments 06/16/2018 1:39 PM 06/18/2018 3:12 PM Healthcare Agents on File Name Relationship Healthcare Agent Relationship Communication Orlin Hahn Spouse .Primary Health Care Agent (Proxy form on file) Care Teams Bank Teller Machine Mechanic Relationship Specialty Start Date End Date Jr Hogue MD [address] [place] [address] PCP - General Internal Medicine 04/05/25 Fallon Dillard MD [address] [place] [address] [email or web address] Referring Physician Hematology and Oncology 04/29/18 Additional Source Comments The information contained in this document represents components of the legal health record. It is not the complete legal health record.[facility]
--- OUTSIDE RECORDS SUMMARY | 2025-08-01 15:45 | XMS_ITS | Encounter Summary ---
Author Organization [facility] Address [address] [place] [address] Phone Care Team Providers Care Master Dyer Name Role Phone Regino Coleman MD Primary Care Provider Fallon Dillard MD Unavailable [phone] Jr Hogue MD Primary Care Provid er Encounter Details Date Type Department Care Team (Late st Contact Info) Description 04/27/2019 Procedure Pass [facility] MR Imaging, Black [address] [place] [address] Social History Tobacco Use Types Packs/Day Years [...] Contact Info) Description 08/15/2024 Procedure Pass [address] [place] [address] 08/08/2025 10:00 AM EDT Appointment [address] [place] [address] Ayaan Corrales MD, MS [address] [place] [address], [facility] [address] [place] [address] [email or web address] 08/08/2025 11:00 AM EDT Appointment [facility], X-Ray - [address] [place] [address] Ayaan Corrales MD, MS 45 Regino [place], [facility] [address] [place] [address] [email or web address]@[facility] 09/04/2025 11:50 AM EST Telemedicine [facility] Urology 45 [facility] [place] [address] Ayaan Corrales MD, MS 45 Regino [place], [facility] [address] [place] [address] [email or web address]@[email or web address] documented as of this encounter Visit Diagnoses Not on filedocumented in this encounter Care Teams Master Dyer Relationship Specialty Start Date End Date Regino Coleman MD [address] [place] [address] PCP - General Internal Medicine 04/29/18 04/04/25 Jr Hogue MD [address] [place] [address] PCP - General Internal Medicine 04/05/25 Fallon Dillard MD [address] [place] [address] [employer] Referring Physician Hematology and Oncology 04/29/18 documented as of this encounter Additional Source Comments The information contained in this document represents components of the legal health record. It is not the complete legal health record.[facility]
--- OUTSIDE RECORDS SUMMARY | 2025-08-01 15:46 | XMS_ITS | Encounter Summary ---
Author Organization [facility] Address [address] [place] [address] Phone Care Team Providers Care Wool Mixer Name Role Phone Regino Coleman MD Primary Care Provider Fallon Dillard MD Unavailable [phone] Jr Hogue MD Primary Care Provid er Encounter Details Date Type Department Care Team (Late st Contact Info) Description 06/23/2018 Procedure Pass [facility] [address] [place] [address] Social History Tobacco Use Types Packs/Day Years [...] st Contact Info) Description 08/15/2024 Procedure Pass [address] [place] [address] 08/08/2025 10:00 AM EDT Appointment [address] [place] [address] Ayaan Corrales MD, [place] [address] Regin[address] [place], [facility] 11-[address] [place] [address] DAKOTAH@[facility] 08/08/2025 11:00 AM EDT Appointment [facility], X-Ray - [address] [place] [address] Ayaan Corrales MD, MS 45 Regino [place], [facility] [address] [place] [address] DAKOTAH@[facility] 09/04/2025 11:50 AM EST Telemedicine [facility] Urology 45 [facility] [place] [address] Ayaan Corrales MD, MS 45 Regino [place], [facility] [address] [place] [address] DAKOTAH@[facility] documented as of this encounter Visit Diagnoses Not on filedocumented in this encounter Care Teams Wool Mixer Relationship Specialty Start Date End Date Regino Coleman MD [address] [place] [address] PCP - General Internal Medicine 04/29/18 04/04/25 Jr Hogue MD [address] [place] [address] PCP - General Internal Medicine 04/05/25 Fallon Dillard MD [address] [place] [address] [email or web address] Referring Physician Hematology and Oncology 04/29/18 documented as of this encounter Additional Source Comments The information contained in this document represents components of the legal health record. It is not the complete legal health record.[facility]
--- OUTSIDE RECORDS SUMMARY | 2025-08-01 15:46 | XMS_ITS | Encounter Summary ---
Author Organization [facility] Address [address] [place] [address] Phone Care Team Providers Care Insulation Applicator Name Role Phone Regino Coleman MD Primary Care Provider Fallon Dillard MD Unavailable [phone] Jr Hogue MD Primary Care Provid er Encounter Details Date Type Department Care Team (Late st Contact Info) Description 06/10/2021 Ancillary Orders [facility],Outside Imaging [address] [place], [place] [phone] System, Provider Not In, [place] [address] Social History Tobacco Use Types Packs/Day Years [...] Contact Info) Description 08/15/2024 Procedure Pass [address] [place] [address] 08/08/2025 10:00 AM EDT Appointment [address] [place] [address] Ayaan Corrales MD, MS 45 [facility], [facility] [address] [place] [address] [email or web address] 08/08/2025 11:00 AM EDT Appointment [facility], X-Ray - [address] [place] [address] Ayaan Corrales MD, MS 45 Regino Van, [facility] [address] [place] [address] [email or web address]@[email or web address] 09/04/2025 11:50 AM EST Telemedicine [facility] Urology 45 [facility]3 [place] [address] Ayaan Corrales MD, MS 45 [facility] [address] [place] [address] [email or web address] documented as of this encounter [...] on filedocumented in this encounter Care Teams Insulation Applicator Relationship Specialty Start Date End Date Regino Coleman MD [address] [place] [address] [place] [address] PCP - General Internal Medicine 04/29/18 04/04/25 Jr Hogue MD [address] [place] [address] [place] [address] PCP - General Internal Medicine 04/05/25 Fallon Dillard MD [address] [place] [address] [email or web address] Referring Physician Hematology and Oncology 04/29/18 documented as of this encounter Additional Source Comments The information contained in this document represents components of the legal health record. It is not the complete legal health record.[facility]
--- OUTSIDE RECORDS SUMMARY | 2025-08-01 15:46 | XMS_ITS | Encounter Summary ---
Author Organization [facility] Address [address] [place] [address] Phone Care Team Providers Care Chief Of Staff Doctor Name Role Phone Regino Coleman MD Primary Care Provider Fallon Dillard MD Unavailable [phone] Jr Hogue MD Primary Care Provid er Encounter Details Date Type Department Care Team (Late st Contact Info) Description 09/29/2018 Procedure Pass [facility] MR Imaging, Black [address] [place] [address] Social History Tobacco Use Types Packs/Day Years [...] Contact Info) Description 08/15/2024 Procedure Pass [address] [place] [address] 08/08/2025 10:00 AM EDT Appointment [address] [place] [address] Ayaan Corrales MD, [address], [facility] [address] [place] [address] DAKOTAH@[email or web address] 08/08/2025 11:00 AM EDT Appointment [facility], X-Ray - [address] [place] [address] Ayaan Corrales MD, MS 45 Regino Marc[place], [facility] [address] [place] [address] DAKOTAH@[email or web address] 09/04/2025 11:50 AM EST Telemedicine [facility] Urology 45 [facility]3 [place] [address] Ayaan Corrales MD, MS 45 Regino Marc[place], [facility] [address] [place] [address] DAKOTAH@[email or web address] documented as of this encounter Visit Diagnoses Not on filedocumented in this encounter Care Teams Chief Of Staff Doctor Relationship Specialty Start Date End Date Regino Coleman MD [address] [place] [address] PCP - General Internal Medicine 04/29/18 04/04/25 Jr Hogue MD [address] [place] [address] PCP - General Internal Medicine 04/05/25 Fallon Dillard MD [address] [place] [address] [email or web address] Referring Physician Hematology and Oncology 04/29/18 documented as of this encounter Additional Source Comments The information contained in this document represents components of the legal health record. It is not the complete legal health record.[facility]
--- OUTSIDE RECORDS SUMMARY | 2025-08-01 15:46 | XMS_ITS | Encounter Summary ---
Author Organization [facility] Address [address] [place] [address] Phone Care Team Providers Care Hr Analyst Name Role Phone Regino Coleman MD Primary Care Provider aFllon Dillard MD Unavailable [phone] Jr Hogue MD Primary Care Provid er Encounter Details Date Type Department Care Team (Late st Contact Info) Description 06/15/2019 Procedure Pass [facility] MR Imaging, Black [address] [place] [address] Social History Tobacco Use Types Packs/Day Years [...] st Contact Info) Description 08/15/2024 Procedure Pass [address] [place] [address] 08/08/2025 10:00 AM EDT Appointment [address] [place] [address] Ayaan Corrales MD, MS [address] [place] [address], [facility] [address] [place] [address] DAKOTAH@[facility] 08/08/2025 11:00 AM EDT Appointment [facility], X-Ray - [address] [place] [address] Ayaan Corrales MD, MS 45 Regin[address] [place], [facility] [address] [place] [address] DAKOTAH@[facility] 09/04/2025 11:50 AM EST Telemedicine [facility] Urology 45 [facility]2-3 [place] [address] Ayaan Corrales MD, MS 45 Regin[address] [place], [facility] [address] [place] [address] DAKOTAH@[facility] documented as of this encounter Visit Diagnoses Not on filedocumented in this encounter Care Teams Hr Analyst Relationship Specialty Start Date End Date Regino Coleman MD [address] [place] [address] PCP - General Internal Medicine 04/29/18 04/04/25 Jr Hogue MD [address] [place] [address] PCP - General Internal Medicine 04/05/25 Fallon Dillard MD [address] [place] [address] [email or web address] Referring Physician Hematology and Oncology 04/29/18 documented as of this encounter Additional Source Comments The information contained in this document represents components of the legal health record. It is not the complete legal health record.[facility]
--- OUTSIDE RECORDS SUMMARY | 2025-08-01 15:46 | XMS_ITS | Encounter Summary ---
Author Organization [facility] Address [address] [place] [address] Phone Care Team Providers Care Lost And Found Clerk Name Role Phone Regino Coleman MD Primary Care Provider Fallon Dillard MD Unavailable [phone] Jr Hogue MD Primary Care Provid er Encounter Details Date Type Department Care Team (Late st Contact Info) Description 01/05/2019 Procedure Pass [facility] MR Imaging, Black [address] [place] [address] Social History Tobacco Use Types Packs/Day Years [...] st Contact Info) Description 08/15/2024 Procedure Pass [address] [place] [address] 08/08/2025 10:00 AM EDT Appointment [address] [place] [address] Ayaan Corrales MD, [address], [facility] [address] [place] [address] DAKOTAH@[facility] 08/08/2025 11:00 AM EDT Appointment [facility], X-Ray - [address] [place] [address] Ayaan Corrales MD, MS 45 Regino [place], [facility] [address] [place] [address] DAKOTAH@[facility] 09/04/2025 11:50 AM EST Telemedicine [facility] Urology 45 [facility]2-3 [place] [address] Ayaan Corrales MD, MS 45 Regino [place], [facility] [address] [place] [address] DAKOTAH@[facility] documented as of this encounter Visit Diagnoses Not on filedocumented in this encounter Care Teams Lost And Found Clerk Relationship Specialty Start Date End Date Regino Coleman MD [address] [place] [address] PCP - General Internal Medicine 04/29/18 04/04/25 Jr Hogue MD [address] [place] [address] PCP - General Internal Medicine 04/05/25 Fallon Dillard MD [address] [place] [address] [email or web address] Referring Physician Hematology and Oncology 04/29/18 documented as of this encounter Additional Source Comments The information contained in this document represents components of the legal health record. It is not the complete legal health record.[facility]
--- OUTSIDE RECORDS SUMMARY | 2025-08-01 15:46 | XMS_ITS | Encounter Summary ---
Author Organization [facility] Address [address] [place] [address] [place] [address] Phone Care Team Providers Care Allergist/Pediatric Pulmonologist Name Role Phone Regino Coleman MD Primary Care Provider Fallon Dillard MD Unavailable [phone] Jr Hogue MD Primary Care Provid er Encounter Details Date Type Department Care Team (Late st Contact Info) Description 08/19/2023 Procedure Pass [facility], [address] [address] Social History Tobacco Use Types Packs/Day Years [...] Contact Info) Description 08/15/2024 Procedure Pass [address] [place] [address] 08/08/2025 10:00 AM EDT Appointment [address] [place] [address] Ayaan Corrales MD, MS [address] [place], [place] [address] [place] [address] DAKOTAH@[facility] 08/08/2025 11:00 AM EDT Appointment [facility], X-Ray - [address] [place] [address] Ayaan Corrales MD, [address] [place] [address] DAKOTAH@[facility] 09/04/2025 11:50 AM EST Telemedicine [facility] Urology [address] [place], [place] [address]-3 [place] [address] Ayaan Corrales MD, [address] [place] [address] DAKOTAH@[facility] documented as of this encounter Visit Diagnoses Not on filedocumented in this encounter Care Teams Allergist/Pediatric Pulmonologist Relationship Specialty Start Date End Date Regino Coleman MD [address] [place] [address] [place] [address] PCP - General Internal Medicine 04/29/18 04/04/25 Jr Hogue MD [address] [place] [address] [place] [address] PCP - General Internal Medicine 04/05/25 Fallon Dillard MD [address] [place] [address] [email or web address] Referring Physician Hematology and Oncology 04/29/18 documented as of this encounter Additional Source Comments The information contained in this document represents components of the legal health record. It is not the complete legal health record.[facility]
--- OUTSIDE RECORDS SUMMARY | 2025-08-01 15:46 | XMS_ITS | Encounter Summary ---
Author Organization [facility] Address [address] [place] [address] Phone Care Team Providers Care Cemetery Manager Name Role Phone Regino Coleman MD Primary Care Provider Fallon Dillard MD Unavailable [phone] Jr Hogue MD Primary Care Provid er Encounter Details Date Type Department Care Team (Late st Contact Info) Description 06/10/2021 Ancillary Orders [facility],Outside Imaging [address] [place], [place] [phone] System, Provider Not In, [place] [address] Social History Tobacco Use Types Packs/Day Years [...] st Contact Info) Description 08/15/2024 Procedure Pass [address] [place] [address] 08/08/2025 10:00 AM EDT Appointment [address] [place] [address] Ayaan Corrales MD, MS 45 Regin[address] [place], [facility] [address] [place] [address] [email or web address]@[email or web address] 08/08/2025 11:00 AM EDT Appointment [facility], X-Ray - [address] [place] [address] Ayaan Corrales MD, MS 45 Regino [place], [facility] [address] [place] [address] DAKOTAH@[facility] 09/04/2025 11:50 AM EST Telemedicine [facility] Urology 45 [facility]2-3 [place] [address] Ayaan Corrales MD, MS 45 [facility] [address] [place] [address] DAKOTAH@[facility] documented as of this encounter [...] on filedocumented in this encounter Care Teams Cemetery Manager Relationship Specialty Start Date End Date Regino Coleman MD [address] [place] [address] ROB Hendrickson [place], [place] [address] PCP - General Internal Medicine 04/29/18 04/04/25 Jr Hogue MD [address] [place] [address] Tamanna Rob [place] [address] PCP - General Internal Medicine 04/05/25 Fallon Dillard MD [address] [place] [address] [email or web address] Referring Physician Hematology and Oncology 04/29/18 documented as of this encounter Additional Source Comments The information contained in this document represents components of the legal health record. It is not the complete legal health record.[facility]
--- OUTSIDE RECORDS SUMMARY | 2025-08-01 15:46 | XMS_ITS | Encounter Summary ---
Author Organization [facility] Address [address] [place] [address] Phone Care Team Providers Care Snuff Blender Name Role Phone Regino Coleman MD Primary Care Provider Fallon Dillard MD Unavailable [phone] Jr Hogue MD Primary Care Provid er Encounter Details Date Type Department Care Team (Late st Contact Info) Description 07/07/[address] [address] Social History Tobacco Use Types Packs/Day Years [...] Contact Info) Description 08/15/2024 Procedure Pass [address] [place] [address] 08/08/2025 10:00 AM EDT Appointment [address] [place] [address] Ayaan Corrales MD, MS 45 Regino [place], [facility] 11-[address] [place] [address] DAKOTAH@[facility] 08/08/2025 11:00 AM EDT Appointment [facility], X-Ray - [address] [place] [address] Ayaan Corrales MD, MS 45 Regino [place], [facility] [address] [place] [address] DAKOTAH@[facility] 09/04/2025 11:50 AM EST Telemedicine [facility] Urology 45 [facility]2-3 [place] [address] Ayaan Corrales MD, MS 45 Regino [place], [facility] [address] [place] [address] DAKOTAH@[facility] documented as of this encounter Visit Diagnoses Not on filedocumented in this encounter Care Teams Snuff Blender Relationship Specialty Start Date End Date Regino Coleman MD [address] [place] [address] PCP - General Internal Medicine 04/29/18 04/04/25 Jr Hogue MD [address] [place] [address] PCP - General Internal Medicine 04/05/25 Fallon Dillard MD [address] [place] [address] [email or web address] Referring Physician Hematology and Oncology 04/29/18 documented as of this encounter Additional Source Comments The information contained in this document represents components of the legal health record. It is not the complete legal health record.[facility]
--- OUTSIDE RECORDS SUMMARY | 2025-08-01 15:46 | XMS_ITS | Encounter Summary ---
Author Organization [facility] Address [address] [place] [address] Phone Care Team Providers Care Cardiac Catheterization Technologist Name Role Phone Regino Coleman MD Primary Care Provider Fallon Dillard MD Unavailable [phone] Jr Hogue MD Primary Care Provid er Encounter Details Date Type Department Care Team (Late st Contact Info) Description 06/10/2021 Ancillary Orders [facility],Outside Imaging [address] [place], [place] [phone] System, Provider Not In, [place] [address] Social History Tobacco Use Types Packs/Day Years [...] st Contact Info) Description 08/15/2024 Procedure Pass [address] [place] [address] 08/08/2025 10:00 AM EDT Appointment [address] [place] [address] Ayaan Corrales MD, MS 45 Regino [place], [facility] [address] [place] [address] DAKOTAH@[facility] 08/08/2025 11:00 AM EDT Appointment [facility], X-Ray - [address] [place] [address] Ayaan Corrales MD, MS 45 Regino [place], [facility] [address] [place] [address] DAKOTAH@[facility] 09/04/2025 11:50 AM EST Telemedicine [facility] Urology 45 [facility]2-[address] [place] [address] Ayaan Corrales MD, MS 45 [facility] [address] [place] [address] DAKOTAH@[facility] documented as of this encounter Results [...] on filedocumented in this encounter Care Teams Cardiac Catheterization Technologist Relationship Specialty Start Date End Date Regino Coleman MD [address] [place] [address] [place] [address] PCP - General Internal Medicine 04/29/18 04/04/25 Jr Hogeu MD [address] [place] [address] [place] [address] PCP - General Internal Medicine 04/05/25 Fallon Dillard MD 575 [place] [address] [email or web address] Referring Physician Hematology and Oncology 04/29/18 documented as of this encounter Additional Source Comments The information contained in this document represents components of the legal health record. It is not the complete legal health record.[facility]
== END 2025-08-01 11:25 | disposition home or self-care (01) ==
LOC: HO.10HDL 11:24
PROVIDERS: Visit Provider Student in an Organized Health Care Education/Training Program
DX: D72.821 Monocytosis (symptomatic) (principal); Z13.1 Encounter for screening for diabetes mellitus
CPT/HCPCS: 36415; 83036; 85007; 85027; 99212

== ENCOUNTER 2025-08-06 11:51 | Outpatient (AMB) | payer MEDICARE, OTHER, SELFPAY ==
--- OUTSIDE RECORDS SUMMARY | 2024-07-03 05:15 | XMS_ITS ---
Author Organization [facility] Address [address] [place] [address] Care Team Providers Care Fruit And Vegetable Factory Worker Name Role Phone Jr Hogue Primary Care Provider Aye Bliss [phone] Encounters Encounter Location Date Provider Diagnosis [address] [address] 07/03/2024 Aye Bliss Plan Of Treatment Next Appt Details Provider Name:Aye A Izaiah , 08/27/2025 08:15:00 AM, [address] [place] [address], [phone], Progress Notes * Alexander HAHNeDOB: [birth year] (69 yo F)Acc No.[id number]:07/03/2024 Progress Note Patient: Rebekah POLO Provider: Alicja Bliss DPM :1955 A ge:68 Y S ex:Female Date:07/03/2024 Address:[address] [place] [address] [place], [phone] Pcp:Jr Hogue Subjective: * Chief Complaints: * [...] 0 07/03/2024 Generated for Chandler Ortega/Nirav on: 03:17 PM EDT
--- OUTSIDE RECORDS SUMMARY | 2024-12-11 04:15 | XMS_ITS ---
Author Organization [facility] Address [address] [place] [address] Care Team Providers Care Family And Divorce Legal Assistant Name Role Phone Lennie, Kartik Primary Care Provider Black, Aye Unavailable [phone] Allergies Allergen (clinical drug ingredient) Drug/Non Drug [...] Negative Encounters Encounter Location Date Provider Diagnosis [facility] [place] [address] [place] [address] 12/11/2024 Aye Bliss Plan Of Treatment Next Appt Details Provider Name:Aye Bliss , 08/27/2025 08:15:00 AM, [address] [place], [address], Progress Notes * Ashvin HAHNOB: [birth year] (69 yo F)Acc No.[id number]:12/11/2024 Progress Note Patient: Rebekah POLO Provider: Alicja Bliss DPM :1955 A ge:69 Y S ex:Female Date:12/11/2024 Address:[address] [place] [address] Pcp:Jr Hogue Subjective: * Chief Complaints: * [...] denies.? C ardiovascular: Pacemaker d enies. M FUR COMBER a dmits. W PW d enies. C [...] eakness d enies. P odiatric: Comments S [facility] for comments. I nteg.: Marques [...] DPM Date: 0 12/11/2024 Generated for Chandler bentley/Brenonn/Nirav on: 03:16 PM EDT
--- OUTSIDE RECORDS SUMMARY | 2025-07-04 04:30 | XMS_ITS ---
Author Organization [facility] Address [address] [place] [address] Care Team Providers Care Doughnut Dough Mixer Name Role Phone DESHAUN OROURKE Primary Care Provider Amilcar Santiago [phone] REASON FOR VISIT gerd,IBS,change in bowel habits Encounters Encounter Location Date Provider Diagnosis [facility] [place] [place] Outpatient [address] [place] [phone] 07/04/2025 Amilcar Sosa Plan Of Treatment Next Appt Details Provider Name:Amilcar Sosa , 09/27/2025 09:00:00 AM, [address] [place] [address], [address], [place], [address], Progress Notes * CORDELL COVARRUBIAS EDOB:[birth year] (69 yo F)Acc No.[id number]:07/04/2025 EGD and COL/MAC Patient: Kimberly JIMY CORDELL Mcnair Provider: Gary Sosa MD :1955 A ge:69 Y S ex:Female Date:07/04/2025 Address:[address] [id number] Pcp:DESHAUN OROURKE Subjective: * Chief Complaints: * [...] 0 07/04/2025 Generated for Chandler bentley/Brennon/Nirav on: 03:18 PM EDT
--- OUTSIDE RECORDS SUMMARY | 2025-08-06 15:16 | XMS_ITS | Encounter Summary ---
Author Organization [facility] Address [address] [place] [address] Phone Care Team Providers Care Parole Agent Name Role Phone Regino Coleman MD Primary Care Provider Fallon Dillard MD Unavailable [phone] Jr Hogue MD Primary Care Provid er Encounter Details Date Type Department Care Team (Late st Contact Info) Description 06/16/2018 Procedure Pass [facility] Periop [address] [place] [address] Social History Tobacco Use Types Packs/Day Years [...] st Contact Info) Description 08/15/2024 Procedure Pass [address] [place] [address] 08/08/2025 10:00 AM EDT Appointment [address] [place] [address] Ayaan Corrales MD, MS [address] [place] [address] 11-[address] [place] [address] [email or web address] 08/08/2025 11:00 AM EDT Appointment [facility], X-Ray - [address] [place] [address] Ayaan Corrales MD, MS 45 Regino [place], [facility] [address] [place] [address] [email or web address]@[facility] 09/04/2025 11:50 AM EST Telemedicine [facility] Urology 45 [facility]2-[address] [place] [address] Ayaan Corrales MD, MS 45 Regino [place], [facility] 11- [place] [address] DAKOTAH@[facility] documented as of this encounter Visit Diagnoses Not on filedocumented in this encounter Care Teams Parole Agent Relationship Specialty Start Date End Date Regino Coleman MD [address] [place] [address] [place] [address] PCP - General Internal Medicine 04/29/18 04/04/25 Jr Hogue MD [address] [place] [address] PCP - General Internal Medicine 04/05/25 Fallon Dillard MD [address] [place] [address] [email or web address] Referring Physician Hematology and Oncology 04/29/18 documented as of this encounter Additional Source Comments The information contained in this document represents components of the legal health record. It is not the complete legal health record.[facility]
--- OUTSIDE RECORDS SUMMARY | 2025-08-06 15:16 | XMS_ITS | Encounter Summary ---
Author Organization [facility] Address [address] [place] [address] Phone Care Team Providers Care Towel Folder Name Role Phone Regino Coleman MD Primary Care Provider Fallon Dillard MD Unavailable [phone] Jr Hogue MD Primary Care Provid er Encounter Details Date Type Department Care Team (Late st Contact Info) Description 05/11/2022 Procedure Pass [address] [address] Social History Tobacco Use Types Packs/Day Years [...] Contact Info) Description 08/15/2024 Procedure Pass [address] [place] [address] 08/08/2025 10:00 AM EDT Appointment [address] [place] [address] Ayaan Corrales MD, MS [address] [place], [facility] [address] [place] [address] [email or web address] 08/08/2025 11:00 AM EDT Appointment [facility], X-Ray - [address] PatelYakimaRICKY reis [address] Ayaan Corrales MD, MS 45 Regin[address] [place], [facility] [address] [place] [address] DAKOTAH@[email or web address] 09/04/2025 11:50 AM EST Telemedicine [facility] Urology 45 [facility] [place] [address] Ayaan Corrales MD, MS 45 Regin[address] [place], [facility] [address] [place] [address] [email or web address]@[email or web address] documented as of this encounter Visit Diagnoses Not on filedocumented in this encounter Care Teams Towel Folder Relationship Specialty Start Date End Date Regino Coleman MD [address] [place] [address] PCP - General Internal Medicine 04/29/18 04/04/25 Jr Hogue MD [address] [place] [address] PCP - General Internal Medicine 04/05/25 Fallon Dillard MD [address] [place] [address] [employer] Referring Physician Hematology and Oncology 04/29/18 documented as of this encounter Additional Source Comments The information contained in this document represents components of the legal health record. It is not the complete legal health record.[facility]
--- OUTSIDE RECORDS SUMMARY | 2025-08-06 15:16 | XMS_ITS | Clinical Summary ---
Author Organization [facility] Address [address] [place] [address] Phone Care Team Providers Care Outdoor Emergency Care Technician Name Role Phone Fallon Dillard MD Unavailable [phone] Jr Hogue MD Primary Care Provid [...] with hand surgeon Dr. Mary Boss in [place] Regular use of meloxicam previously effective, but [...] will continue to follow up with her seo expert to optimize renal function. Assessment & Plan [...] will continue to follow up with her seo expert to optimize renal function. Assessment & Plan [...] pathology by [facility], Department of Pathology suggests that it [...] Contact Info) Description 08/15/2024 Procedure Pass [address] [place] [address] 08/08/2025 10:00 AM EDT Appointment [address] [place] [address] Ayaan Corrales MD, MS [address] [place] [address] [email or web address]@[email or web address] 08/08/2025 11:00 AM EDT Appointment [facility], X-Ray - [address] [place], [place] [address] Ayaan Corrales MD, MS 45 [facility], [facility] [address] [place] [address] DAKOTAH@[facility] 09/04/2025 11:50 AM EST Telemedicine [facility] Urology 45 [facility] [place] [address] Ayaan Corrales MD, MS 45 [facility], [facility] [address] [place] [address] DAKOTAH@[facility] Health Maintenance Due Date Last Done Comments [...] file Insurance MEDICARE PART A & [place] [employer] [id number] MEDICARE PART A & B [employer] MEDICARE SUPPLEMENT MEDICARE PART A & B [facility] MEDICARE SUPPLEMENT MEDICARE PART A & B Member Subscriber Plan / Payer (Ef fective 2019-Present) Name:Rebekah Hahn Member ID:[id number] Relation to Subscriber:Self Name:Rebekah Hahn Subscriber ID:[id number] Payer ID:[id number] Group ID:Not on file Type:Medicare Address: [email or web address] [address] [place] [id number] [place] [address] EXTENSION MEDICARE SUPPLEMENT MEDICARE PART A & B [facility] MEDICARE SUPPLEMENT MEDICARE PART A & B [employer] MEDICARE SUPPLEMENT MEDICARE PART A & B [employer] MEDICARE SUPPLEMENT MEDICARE PART A & B [facility] MEDICARE SUPPLEMENT MEDICARE PART A & B [facility] MEDICARE SUPPLEMENT Advance Directives For more information, please contact: [phone] (9AM - 5PM [facility], Wednesday-Wednesday) Documents on File Type Date Recorded Patient Pole Framer Machine Expl anation Healthcare Proxy 06/09/2018 10:59 AM 09-19 * Full Code (Presumed) (Latest Code Status on File) Date Activated Date Inactivated Comments 06/16/2018 1:39 PM 06/18/2018 3:12 PM Healthcare Agents on File Name Relationship Healthcare Agent Relationship Communication Orlin Hanh Spouse .Primary Health Care Agent (Proxy form on file) Care Teams Outdoor Emergency Care Technician Relationship Specialty Start Date End Date Jr Hogue MD [address] [place] [address] PCP - General Internal Medicine 04/05/25 Fallon Dillard MD [address] [place] [address] [email or web address] Referring Physician Hematology and Oncology 04/29/18 Additional Source Comments The information contained in this document represents components of the legal health record. It is not the complete legal health record.[facility]
--- OUTSIDE RECORDS SUMMARY | 2025-08-06 15:16 | XMS_ITS | Encounter Summary ---
Author Organization [facility] Address [address] [place] [address] Phone Care Team Providers Care Headrig Sawyer Name Role Phone Regino Coleman MD Primary Care Provider Fallon Dillard MD Unavailable [phone] Jr Hogue MD Primary Care Provid er Encounter Details Date Type Department Care Team (Late st Contact Info) Description 05/24/2018 Procedure Pass [facility] OUTSIDE IMG [address] [place] [address] Social History Tobacco Use Types Packs/Day Years [...] st Contact Info) Description 08/15/2024 Procedure Pass [address] [place] [address] 08/08/2025 10:00 AM EDT Appointment [address] [place] [address] Ayaan Corrales MD, MS 45 [facility], [address] [address] [email or web address] 08/08/2025 11:00 AM EDT Appointment [facility], X-Ray - [address] [place] [address] Ayaan Corrales MD, MS 45 Regin[address] [place], [facility] [address] [place] [address] DAKOTAH@[facility] 09/04/2025 11:50 AM EST Telemedicine [facility] Urology 45 [facility] [place] [address] Ayaan Corrales MD, MS 45 [facility] [address] [place] [address] [email or web address]@[facility] documented as of this encounter Visit Diagnoses Not on filedocumented in this encounter Care Teams Headrig Sawyer Relationship Specialty Start Date End Date Regino Coleman MD [address] [place] [address] PCP - General Internal Medicine 04/29/18 04/04/25 Jr Hogue MD [address] [place] [address] PCP - General Internal Medicine 04/05/25 Fallon Dillard MD [address] [place] [address] [email or web address] Referring Physician Hematology and Oncology 04/29/18 documented as of this encounter Additional Source Comments The information contained in this document represents components of the legal health record. It is not the complete legal health record.[facility]
--- OUTSIDE RECORDS SUMMARY | 2025-08-06 15:16 | XMS_ITS | Encounter Summary ---
Author Organization [facility] Address [address] [place] [address] Phone Care Team Providers Care Health Services Administrator Name Role Phone Regino Coleman MD Primary Care Provider Fallon Dillard MD Unavailable [phone] Jr Hogue MD Primary Care Provid er Encounter Details Date Type Department Care Team (Late st Contact Info) Description 06/15/2019 Procedure Pass [facility] MR Imaging, Black [address] [place] [address] Social History Tobacco Use Types Packs/Day Years [...] Contact Info) Description 08/15/2024 Procedure Pass [address] [place] [address] 08/08/2025 10:00 AM EDT Appointment [address] [place] [address] Ayaan Corrales MD, [address], [facility] [address] [place] [address] [email or web address] 08/08/2025 11:00 AM EDT Appointment [facility], X-Ray - [address] [place] [address] Ayaan Corrales MD, MS 45 Regin[address] [place], [facility] [address] [place] [address] [email or web address]@[email or web address] 09/04/2025 11:50 AM EST Telemedicine [facility] Urology 45 [facility] [place] [address] Ayaan Corrales MD, MS 45 Regin[address] [place], [facility] [address] [place] [address] DAKOTAH@[email or web address] documented as of this encounter Visit Diagnoses Not on filedocumented in this encounter Care Teams Health Services Administrator Relationship Specialty Start Date End Date Regino Coleman MD [address] [place] [address] PCP - General Internal Medicine 04/29/18 04/04/25 Jr Hogue MD [address] [place] [address] PCP - General Internal Medicine 04/05/25 Fallon Dillard MD [address] [place] [address] [email or web address] Referring Physician Hematology and Oncology 04/29/18 documented as of this encounter Additional Source Comments The information contained in this document represents components of the legal health record. It is not the complete legal health record.[facility]
--- OUTSIDE RECORDS SUMMARY | 2025-08-06 15:16 | XMS_ITS | Encounter Summary ---
Author Organization [facility] Address [address] [place] [address] Phone Care Team Providers Care Roll Forming Supervisor Name Role Phone Regino Coleman MD Primary Care Provider Fallon Dillard MD Unavailable [phone] Jr Hogue MD Primary Care Provid er Encounter Details Date Type Department Care Team (Late st Contact Info) Description 07/02/2020 Procedure Pass [address] [address] Social History Tobacco Use Types Packs/Day Years [...] st Contact Info) Description 08/15/2024 Procedure Pass [address] [place] [address] 08/08/2025 10:00 AM EDT Appointment [address] [place] [address] Ayaan Corrales MD, MS 45 Regin[address] [place], [facility] [address] [place] [address] [email or web address]@[email or web address] 08/08/2025 11:00 AM EDT Appointment [facility], X-Ray - [address] [place] [address] Ayaan Corrales MD, MS 45 Regin[address] [place], [facility] [address] [place] [address] DAKOTAH@[facility] 09/04/2025 11:50 AM EST Telemedicine [facility] Urology 45 [facility] [place] [address] Ayaan Corrales MD, MS 45 Regin[address] [place], [facility] [address] [place] [address] DAKOTAH@[facility] documented as of this encounter Visit Diagnoses Not on filedocumented in this encounter Care Teams Roll Forming Supervisor Relationship Specialty Start Date End Date Regino Coleman MD [address] [place] [address] PCP - General Internal Medicine 04/29/18 04/04/25 Jr Hogue MD [address] [place] [address] PCP - General Internal Medicine 04/05/25 Fallon Dillard MD [address] [place] [address] [email or web address] Referring Physician Hematology and Oncology 04/29/18 documented as of this encounter Additional Source Comments The information contained in this document represents components of the legal health record. It is not the complete legal health record.[facility]
--- OUTSIDE RECORDS SUMMARY | 2025-08-06 15:16 | XMS_ITS | Encounter Summary ---
Author Organization [facility] Address [address] [place] [address] Phone Care Team Providers Care Drafter Directional Survey Name Role Phone Regino Coleman MD Primary Care Provider Fallon Dillard MD Unavailable [phone] Jr Hogue MD Primary Care Provid er Encounter Details Date Type Department Care Team (Late st Contact Info) Description 04/27/2019 Procedure Pass [facility] MR Imaging, Black [address] [place] [address] Social History Tobacco Use Types Packs/Day Years [...] Contact Info) Description 08/15/2024 Procedure Pass [address] [place] [address] 08/08/2025 10:00 AM EDT Appointment [address] [place] [address] Ayaan Corrales MD, [address], [facility] [address] [place] [address] DAKOTAH@[facility] 08/08/2025 11:00 AM EDT Appointment [facility], X-Ray - [address] [place] [address] Ayaan Corrales MD, MS 45 Regin[address] [place], [facility] [address] [place] [address] DAKOTAH@[facility] 09/04/2025 11:50 AM EST Telemedicine [facility] Urology 45 [facility]2-[address] [place] [address] Ayaan Corrales MD, MS 45 Regin[address] [place], [facility] [address] [place] [address] [email or web address]@[facility] documented as of this encounter Visit Diagnoses Not on filedocumented in this encounter Care Teams Drafter Directional Survey Relationship Specialty Start Date End Date Regino Coleman MD [address] [place] [address] PCP - General Internal Medicine 04/29/18 04/04/25 Jr Hogue MD [address] [place] [address] PCP - General Internal Medicine 04/05/25 Fallon Dillard MD [address] [place] [address] [email or web address] Referring Physician Hematology and Oncology 04/29/18 documented as of this encounter Additional Source Comments The information contained in this document represents components of the legal health record. It is not the complete legal health record.[facility]
--- OUTSIDE RECORDS SUMMARY | 2025-08-06 15:17 | XMS_ITS | Encounter Summary ---
Author Organization [facility] Address [address] [place] [address] Phone Care Team Providers Care Manager Plumbing Name Role Phone Regino Coleman MD Primary Care Provider Fallon Dillard MD Unavailable Jr Hogue MD Primary Care Provid er Encounter Details Date Type Department Care Team (Late st Contact Info) Description 06/10/2021 Ancillary Orders [facility],Outside Imaging [address] [place], [place] [id number] System, Provider Not In, [place] [address] Social History Tobacco Use Types Packs/Day Years [...] st Contact Info) Description 08/15/2024 Procedure Pass [address] [place] [address] 08/08/2025 10:00 AM EDT Appointment [address] [place] [address] Ayaan Corrales MD, MS 45 Regin[address] [place], [facility] [address] [place] [address] DAKOTAH@[facility] 08/08/2025 11:00 AM EDT Appointment [facility], X-Ray - [address] [place] [address] Ayaan Corrales MD, MS 45 Regin[address] [place], [facility] [address] [place] [address] DAKOTAH@[facility] 09/04/2025 11:50 AM EST Telemedicine [facility] Urology 45 [facility]2-3 [place] [address] Ayaan Corrales MD, MS 45 [facility] [address] [place] [address] [email or web address]@[facility] documented as of this encounter Results [...] on filedocumented in this encounter Care Teams Manager Plumbing Relationship Specialty Start Date End Date Regino Coleman MD [address] [place] [address] [place] [id number] PCP - General Internal Medicine 04/29/18 04/04/25 Jr Hogue MD [address] [place] [address] [place] [address] PCP - General Internal Medicine 04/05/25 Fallon Dillard MD [address] [place] [address] [email or web address] Referring Physician Hematology and Oncology 04/29/18 documented as of this encounter Additional Source Comments The information contained in this document represents components of the legal health record. It is not the complete legal health record.[facility]
--- OUTSIDE RECORDS SUMMARY | 2025-08-06 15:17 | XMS_ITS | Encounter Summary ---
Author Organization [facility] Address [address] [place] [address] Phone Care Team Providers Care Tight Cooper Name Role Phone Regino Coleman MD Primary Care Provider Fallon Dillard MD Unavailable [phone] Jr Hogue MD Primary Care Provid er Encounter Details Date Type Department Care Team (Late st Contact Info) Description 06/10/2021 Ancillary Orders [facility],Outside Imaging [address] [place], [place] [id number] System, Provider Not In, [place] [address] Social History Tobacco Use Types Packs/Day Years [...] Contact Info) Description 08/15/2024 Procedure Pass [address] [place] [address] 08/08/2025 10:00 AM EDT Appointment [address] [place] [address] Ayaan Corrales MD, MS 45 Regino [place], [facility] [address] [place] [address] DAKOTAH@[facility] 08/08/2025 11:00 AM EDT Appointment [facility], X-Ray - [address] [place] [address] Ayaan Corrales MD, MS 45 Regino [place], [facility] [address] [place] [address] DAKOTAH@[facility] 09/04/2025 11:50 AM EST Telemedicine [facility] Urology 45 [facility]2-[address] [place] [address] Ayaan Corrales MD, MS 45 [facility] [address] [place] [address] DAKOTAH@[facility] documented as of this encounter Results [...] on filedocumented in this encounter Care Teams Tight Cooper Relationship Specialty Start Date End Date Regino Coleman MD [address] [place] [address] ROB Hendrickson [place], [place] [address] PCP - General Internal Medicine 04/29/18 04/04/25 Jr Hogue MD [address] [place] [address] Tamanna Rob [place] [address] PCP - General Internal Medicine 04/05/25 Fallon Dillard MD [address] [place] [address] [email or web address] Referring Physician Hematology and Oncology 04/29/18 documented as of this encounter Additional Source Comments The information contained in this document represents components of the legal health record. It is not the complete legal health record.[facility]
--- OUTSIDE RECORDS SUMMARY | 2025-08-06 15:17 | XMS_ITS | Encounter Summary ---
Author Organization [facility] Address [address] [place] [address] Phone Care Team Providers Care Home Aid Name Role Phone Regino Coleman MD Primary Care Provider [phone] Encounter Details Date Type Department Care Team (Late st Contact Info) Description 11/25/2022 Telephone [facility] [address] [place] [address] Ying Medrano Social History Tobacco [...] called to relay that Dr. Reyes from [facility] had recently put a stent in [...] on filedocumented in this encounter Care Teams Home Aid Relationship Specialty Start Date End Date Regino Coleman MD [address] [place] PCP - General 10/21/20 documented as of this encounter
--- OUTSIDE RECORDS SUMMARY | 2025-08-06 15:17 | XMS_ITS | Encounter Summary ---
Author Organization [facility] Address [address] [place] [address] Phone Care Team Providers Care County Court Judge Name Role Phone Regino Coleman MD Primary Care Provider [phone] Encounter Details Date Type Department Care Team (Late st Contact Info) Description 01/06/2023 Telephone [facility] [address] [place] [address] Ying Medrano Social History Tobacco [...] appt w/ [facility] and [facility] and they will call and book sooner appt. Pt stated that she is going to see her teaching young in 2 weeks and her MD stated she will do th US in office. Pls advise if you would like her teaching young to do US or move forward with the hospital. Her teaching young does not have a radiology department. * Telephone Encounter - Ying Medrano - 01/06/2023 9:51 AM EDT PT says she has renal ultrasound scheduled for 03/01/23. PT wants to be seen sooner, she is asking for an earlier appointment and is willing to commute to [place] if she can get a sooner appointment. documented in this encounter Plan of Treatment Not on file documented as of this encounter Visit Diagnoses Not on filedocumented in this encounter Care Teams County Court Judge Relationship Specialty Start Date End Date Regino Coleman MD [address] [place] [address] DR[address] [place] PCP - General 10/21/20 documented as of this encounter
--- OUTSIDE RECORDS SUMMARY | 2025-08-06 15:18 | XMS_ITS | Clinical Summary ---
Author Organization [facility] Address [address] [facility] [facility] [address] [place] [address] Care Team Providers Care Floor Technician Name Role Phone Regino Coleman MD Primary Care Provider [phone] Allergies Active Allergy Reactions Criticality Noted Date [...] initially though review of the pathology by [facility], Department of Pathology suggests that it may [...] date. Immunizations Immunization Administration Dates Next Due [employer] SARS-COV-2 12/14/2020 [employer] SARS-COV-2 08/06/2021 Pneumococcal Conjugate 13-Valent 12/29/2019 Family [...] age to complete this topic Insurance Medicare [facility] Medicare [facility] Care Teams Floor Technician Relationship Specialty Start Date End Date Regino Coleman MD [address] [place] PCP - General 10/21/20
--- OUTSIDE RECORDS SUMMARY | 2025-08-06 15:18 | XMS_ITS | Encounter Summary ---
Author Organization [facility] Address [address] [place] [address] [place] [address] Phone Care Team Providers Care Laborer Cutting Tool Name Role Phone Regino Coleman MD Primary Care Provider Fallon Dillard MD Unavailable [phone] Jr Hogue MD Primary Care Provid er Encounter Details Date Type Department Care Team (Late st Contact Info) Description 08/19/2023 Procedure Pass [facility], [address] [address] Social History Tobacco Use Types Packs/Day Years [...] Contact Info) Description 08/15/2024 Procedure Pass [address] [place] [address] 08/08/2025 10:00 AM EDT Appointment [address] [place] [address] Ayaan Corrales MD, MS [address] [place], [place] [address] [place] [address] [email or web address] 08/08/2025 11:00 AM EDT Appointment [facility], X-Ray - [address] [place] [address] Ayaan Corrales MD, [address] [place] [address] [email or web address] 09/04/2025 11:50 AM EST Telemedicine [facility] Urology [address] [place], [place] [address] [place] [address] Ayaan Corrales MD, [address] [place] [address] [email or web address] documented as of this encounter Visit Diagnoses Not on filedocumented in this encounter Care Teams Laborer Cutting Tool Relationship Specialty Start Date End Date Regino Coleman MD [address] [place] [address] [place] [address] PCP - General Internal Medicine 04/29/18 04/04/25 Jr Hogue MD [address] [place] [address] [place] [address] PCP - General Internal Medicine 04/05/25 Fallon Dillard MD [address] [place] [address] [email or web address] Referring Physician Hematology and Oncology 04/29/18 documented as of this encounter Additional Source Comments The information contained in this document represents components of the legal health record. It is not the complete legal health record.[facility]
--- OUTSIDE RECORDS SUMMARY | 2025-08-06 15:18 | XMS_ITS | Encounter Summary ---
Author Organization [facility] Address [address] [place] [address] Phone Care Team Providers Care Telegraph Service Rater Name Role Phone Regino Coleman MD Primary Care Provider Fallon Dillard MD Unavailable Jr Hogue MD Primary Care Provid er Encounter Details Date Type Department Care Team (Late st Contact Info) Description 07/07/2022 Procedure Pass [address] [address] Social History Tobacco Use Types Packs/Day Years [...] st Contact Info) Description 08/15/2024 Procedure Pass [address] [place] [address] 08/08/2025 10:00 AM EDT Appointment [address] [place] [address] Ayana Corrales MD, MS [address] [place], [facility] [address] [place] [address] [email or web address] 08/08/2025 11:00 AM EDT Appointment [facility], X-Ray - [address] [place] [address] Ayaan Corrales MD, MS [address] [place], [facility] [address] [place] [address] [email or web address] 09/04/2025 11:50 AM EST Telemedicine [facility] Urology 45 [facility]3 [place] [address] Ayaan Corrales MD, MS [address] [place], [facility] [address] [place] [address] [email or web address] documented as of this encounter Visit Diagnoses Not on filedocumented in this encounter Care Teams Telegraph Service Rater Relationship Specialty Start Date End Date Regino Coleman MD [address] [place] [address] PCP - General Internal Medicine 04/29/18 04/04/25 Jr Hogue MD [address] [place] [address] PCP - General Internal Medicine 04/05/25 Fallon Dillard MD [address] [place] [address] [email or web address] Referring Physician Hematology and Oncology 04/29/18 documented as of this encounter Additional Source Comments The information contained in this document represents components of the legal health record. It is not the complete legal health record.[facility]
--- OUTSIDE RECORDS SUMMARY | 2025-08-06 15:18 | XMS_ITS | Encounter Summary ---
Author Organization [facility] Address [address] [place] [address] Phone Care Team Providers Care Vocational Adviser Name Role Phone Regino Coleman MD Primary Care Provider Fallon Dillard MD Unavailable [phone] Jr Hogue MD Primary Care Provid er Encounter Details Date Type Department Care Team (Late st Contact Info) Description 06/10/2021 Ancillary Orders [facility],Outside Imaging [address] [place], [place] [id number] System, Provider [place] In, [place] [address] Social History Tobacco Use Types Packs/Day Years [...] Contact Info) Description 08/15/2024 Procedure Pass [address] [place] [address] 08/08/2025 10:00 AM EDT Appointment [address] [place] [address] Ayaan Corrales MD, MS 45 [facility], [facility] [address] [place] [address] [email or web address] 08/08/2025 11:00 AM EDT Appointment [facility], X-Ray - [address] [place] [address] Ayaan Corrales MD, MS [address] [place], [facility] [address] [place] [address] [email or web address] 09/04/2025 11:50 AM EST Telemedicine [facility] Urology 45 [facility] [place] [address] Ayaan Corrales MD, MS 45 [facility] 11[address] [place] [address] [email or web address] documented as of this encounter [...] on filedocumented in this encounter Care Teams Vocational Adviser Relationship Specialty Start Date End Date Regino Coleman MD [address] [place] [address] [place] [id number] PCP - General Internal Medicine 04/29/18 04/04/25 Jr Hogue MD [address] [place] [address] [place] [id number] PCP - General Internal Medicine 04/05/25 Fallon Dillard MD [address] [place] [address] [email or web address] Referring Physician Hematology and Oncology 04/29/18 documented as of this encounter Additional Source Comments The information contained in this document represents components of the legal health record. It is not the complete legal health record.[facility]
--- OUTSIDE RECORDS SUMMARY | 2025-08-06 15:18 | XMS_ITS | Encounter Summary ---
Author Organization [facility] Address [address] [place] [address] Phone Care Team Providers Care Asp Net Software Developer Name Role Phone Regino Coleman MD Primary Care Provider Fallon Dillard MD Unavailable [phone] Jr Hogue MD Primary Care Provid er Encounter Details Date Type Department Care Team (Late st Contact Info) Description 09/29/2018 Procedure Pass [facility] MR Imaging, Black [address] [place] [address] Social History Tobacco Use Types Packs/Day Years [...] st Contact Info) Description 08/15/2024 Procedure Pass [address] [place] [address] 08/08/2025 10:00 AM EDT Appointment [address] [place] [address] Ayaan Corrales MD, [address], [facility] [address] [place] [address] [email or web address] 08/08/2025 11:00 AM EDT Appointment [facility], X-Ray - [address] [place] [address] Ayaan Corrales MD, MS [address] [place], [facility] [address] [place] [address] [email or web address] 09/04/2025 11:50 AM EST Telemedicine [facility] Urology 45 [facility]3 [place] [address] Ayaan Corrales MD, MS [address] [place], [facility] [address] [place] [address] [email or web address] documented as of this encounter Visit Diagnoses Not on filedocumented in this encounter Care Teams Asp Net Software Developer Relationship Specialty Start Date End Date Regino Coleman MD [address] [place] [address] PCP - General Internal Medicine 04/29/18 04/04/25 Jr Hogue MD [address] [place] [address] PCP - General Internal Medicine 04/05/25 Fallon Dillard MD [address] [place] [address] [email or web address] Referring Physician Hematology and Oncology 04/29/18 documented as of this encounter Additional Source Comments The information contained in this document represents components of the legal health record. It is not the complete legal health record.[facility]
--- OUTSIDE RECORDS SUMMARY | 2025-08-06 15:18 | XMS_ITS | Patient Health Record ---
Author Organization [facility] Address [address] [place] [address] Care Team Providers Care Fibre Optic Cable Splicer Name Role Phone DESHAUN OROURKE Primary Care Provider Amilcar Santiago [phone] Allergies No Known Allergies Results Component Value Reference Range Notes Pathology (Not yet reviewed by provider) Interpretation: Performing Lab:[facility], [address] [place] [phone] Notes/Report: Reason For Referral No Information Medications [...] Status Risk Notes Problem Irritable bowel syndrome (51383665) Irritable bowel syndrome (K58.9) Active confirmed Problem Screening for malignant neoplasm of colon (713438184) Encounter for screening for malignant neoplasm of colon (Z12.11) Active confirmed Problem Diarrhea (53583585) Diarrhea (R19.7) Active con firmed Problem Change in bowel habit (93145102) Change in bowel habits (R19.4) Active confirmed Problem Screening for malignant neoplasm of rectum (165448126) Encounter for screening for malignant neoplasm of rectum (Z12.12) Active confirmed Problem Blood in stool (773984724) Blood in stool (K92.1) Active confirmed Problem Gastroesophageal reflux disease without esophagitis (534346761) Gastroesophageal reflux disease without esophagitis (K21.9) Active confirmed Problem Gastroesophageal reflux disease (268030253) Gastroesophageal reflux disease, esophagitis presence not specified (K21.9) Active confirmed Problem Pancreatic cyst (22311753) 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) Active confirmed Problem Constipation (58204623) Constipation, unspecified constipation type (K59.00) Active confirmed Problem Left lower quadrant pain (465595927) Abdominal pain, left lower quadrant (R10.32) Active confirmed Problem Gastroesophageal reflux disease (006394505) GERD (gastroesophageal reflux disease) (K21.9) Active confirmed Problem Irritable bowel syndrome characterized by constipation (279711908) Irritable bowel syndrome with constipation (K58.1) Active confirmed Problem Irritable bowel syndrome (68422885) Irritable bowel syndrome with both constipation and diarrhea (K58.2) Active confirmed Problem Thrombocytosis (disorder) (5262037) Thrombocytosis, unspecified (D75.839) Active confirmed Problem Neoplasm of digestive system (691094932) IPMN (intraductal papillary mucinous neoplasm) (D49.0) Active confirmed Vital Signs Blood pressure diastolic 77 mm Hg 04/03/2025 Height 64 in 04/03/2025 Blood pressure systolic 111 mm Hg 04/03/2025 Weight 136 lbs 04/03/2025 BMI 23.34 kg/m2 04/03/2025 Procedures Procedure Date Ordered Date Performed Result Body Sit e UPPER GI ENDOSCOPY 04/03/2025 N/A COLONOSCOPY 04/03/2025 N/A Encounters Encounter Location Date Provider Diagnosis [facility] Outpatient [address] [place], [place] [id number] 07/04/2025 Amilcar Sosa [facility] [address] [facility] [address] [place] [address] 09/28/2024 Amilcar Sosa Gastroesophageal ref lux disease, esophagitis presence not specified K21.9 ; Irritable bowel syndrome with constipation K58.1 ; Encounter for screening for malignant neoplasm of colon Z12.11 ; Constipation, unspecified constipation type K59.00 and Pancreatic cyst K86.2 [facility] [address] [place] [address] 04/03/2025 Amilcar Sosa Change in bowel habi ts R19.4 ; Irritable bowel syndrome with both constipation and diarrhea K58.2 ; GERD (gastroesophageal reflux disease) K21.9 and IPMN (intraductal papillary mucinous neoplasm) D49.0 [facility] [address] [phone] 09/28/2024 Amilcar Sosa [facility] [address] [place] [address] 04/03/2025 Amilcar Sosa Assessments Encounter Date Diagnosis [...] will be having it done up at [facility] as it is ordered by her [place] [facility] in regard to the follow-up of [...] will be having it done up at [facility] as it is ordered by her [place] [facility] in regard to the follow-up of [...] will be having it done up at [facility] as it is ordered by her [place] [facility] in regard to the follow-up of [...] will be having it done up at [facility] as it is ordered by her [place] [facility] in regard to the follow-up of [...] (ICD-10 - K86.2) Need MRI report from [facility] from 06/2024 Overall, Cordell appears well. We [...] 10 [facility], [address], [place], [address], Insurance Providers Payer Name Payer Address Payer Phone Subscriber Number Group Number Insured Name Patient Relationship to Insured Coverage Start Date Coverage End Date MEDICARE OF [place] [address] [place] [address] [phone] [id number] CORDELL ORDAZ Self - patient is the insured Punctil Insurance ([employer]) [address] [place] [id number] LENA Wright CORDELL Self - patient is the insured Medical (General) History Medical History History ICD Code Screening colonoscopy 05-24-2009--negativ e EGD 01-05-2002 and in 11/2016--small HH, n o esophagitis, no Hernandes's Asthma--presently asymptomatic 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 Dillard Mitral valve prolapse Lyme's disease/Fibromyalgia--Amitryptile ne and Gabapentin Migraines-on Propranolol Hyperlipidemia Arthritis in left foot--Meloxicam/Cortis one injections Denies CA,DM,CVA,renal disease Renal cancer with surgery in 06/2018 [...] 11/18/2022 [facility] Corrales 06/2018 Uterine polyps Breast biopsy -2013--breast-left--LCIS Left ovary removed and appy Broken ankle/beau and screws right Cyst removed both breasts Tonsillectomy
--- OUTSIDE RECORDS SUMMARY | 2025-08-06 15:18 | XMS_ITS | Encounter Summary ---
Author Organization [facility] Address [address] [place] [address] Phone Care Team Providers Care Spd Manager Name Role Phone Regino Coleman MD Primary Care Provider Fallon Dillard MD Unavailable Jr Hogue MD Primary Care Provid er Encounter Details Date Type Department Care Team (Late st Contact Info) Description 06/23/2018 Procedure Pass [facility] [address] [place] [address] Social History Tobacco Use Types Packs/Day Years [...] st Contact Info) Description 08/15/2024 Procedure Pass [address] [place] [address] 08/08/2025 10:00 AM EDT Appointment [address] [place] [address] Ayaan Corrales MD, MS [address] [place], [facility] 11[address] [place] [address] [email or web address] 08/08/2025 11:00 AM EDT Appointment [facility], X-Ray - [address] [place] [address] Ayaan Corrales MD, MS [address] [place], [facility] [address] [place] [address] [email or web address] 09/04/2025 11:50 AM EST Telemedicine [facility] Urology 45 [facility]2-3 [place] [address] Ayaan Corrales MD, MS [address] [place], [facility] [address] [place] [address] [email or web address] documented as of this encounter Visit Diagnoses Not on filedocumented in this encounter Care Teams Spd Manager Relationship Specialty Start Date End Date Regino Coleman MD [address] [place] [address] PCP - General Internal Medicine 04/29/18 04/04/25 Jr Hogue MD [address] [place] [address] PCP - General Internal Medicine 04/05/25 Fallon Dillard MD [address] [place] [address] [email or web address] Referring Physician Hematology and Oncology 04/29/18 documented as of this encounter Additional Source Comments The information contained in this document represents components of the legal health record. It is not the complete legal health record.[facility]
--- OUTSIDE RECORDS SUMMARY | 2025-08-06 15:18 | XMS_ITS | Encounter Summary ---
Author Organization [facility] Address [address] [place] [address] Phone Care Team Providers Care Home Delivery Driver Name Role Phone Regino Coleman MD Primary Care Provider Fallon Dillard MD Unavailable [phone] Jr Hogue MD Primary Care Provid er Encounter Details Date Type Department Care Team (Late st Contact Info) Description 01/05/2019 Procedure Pass [facility] MR Imaging, Black [address] [place] [address] Social History Tobacco Use Types Packs/Day Years [...] Contact Info) Description 08/15/2024 Procedure Pass [address] [place] [address] 08/08/2025 10:00 AM EDT Appointment [address] [place] [address] Ayaan Corrales MD, [address], [facility] [address] [place] [address] [email or web address] 08/08/2025 11:00 AM EDT Appointment [facility], X-Ray - [address] [place] [address] Ayaan Corrales MD, MS [address] [place], [facility] [address] [place] [address] [email or web address] 09/04/2025 11:50 AM EST Telemedicine [facility] Urology 45 [facility]3 [place] [address] Ayaan Corrales MD, MS [address] [place], [facility] [address] [place] [address] [email or web address] documented as of this encounter Visit Diagnoses Not on filedocumented in this encounter Care Teams Home Delivery Driver Relationship Specialty Start Date End Date Regino Coleman MD [address] [place] [address] PCP - General Internal Medicine 04/29/18 04/04/25 Jr Hogue MD [address] [place] [address] PCP - General Internal Medicine 04/05/25 Fallon Dillard MD [address] [place] [address] [email or web address] Referring Physician Hematology and Oncology 04/29/18 documented as of this encounter Additional Source Comments The information contained in this document represents components of the legal health record. It is not the complete legal health record.[facility]
--- OUTSIDE RECORDS SUMMARY | 2025-08-06 15:18 | XMS_ITS | Patient Health Record ---
Author Organization [facility] Address [address] [place] [address] Care Team Providers Care Hyster Driver Name Role Phone Jr Hogue Primary Care Provider [phone] Black, Aye Unavailable [phone] Allergies Allergen (clinical drug ingredient) Drug/Non Drug [...] primary osteoarthritis of the ankle and/or foot (086046242) Primary osteoarthrit is, left ankle and foot (M19.072) Active confirmed Vital Signs Blood pressure diastolic 75 mm Hg 05/24/2025 Height 5ft3in in 05/24/2025 Blood pressure systolic 121 mm Hg 05/24/2025 Weight 136 lbs 05/24/2025 BMI 24.09 kg/m2 05/24/2025 Procedures Procedure Date Ordered Date Performed Result Body Sit e , I4174-CRGLU/INJECT, JOINT/BURSA 08/17/2024 N/A , A4123-DOKUW/INJECT, JOINT/BURSA 05/24/2025 N/A Encounters Encounter Location Date Provider Diagnosis [facility] [place] [address] [place] [address] 08/17/2024 Aye Black Primary osteoarthrit is, left ankle and foot M19.072 ; Joint pain M25.50 ; Neuralgia and neuritis, unspecified M79.2 ; Hypertrophy of bone, 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 and Pain in left foot M79.[address] [address] 02/12/2025 Aye Bliss Primary osteoarthrit is, left [...] Other hammer toe(s) (acquired), right foot M20.[address] [address] 05/24/2025 Aye Bliss Primary osteoarthrit is, left ankle and foot M19.072 ; Joint pain M25.50 ; Neuralgia and neuritis, unspecified M79.2 and Hypertrophy of bone, 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 [facility] [address] [address] 12/11/2024 Aye Bliss [address] [address] 02/12/2025 Aye Bliss Assessments Encounter Date Diagnosis [...] X ray : Foot, right 3V 04/24/2013 29107-Zktf Destruction, 1-14 02/08/2023 91885-Ibrr Destruction, 1-12/08/2021, D4579-SKRVU/INJECT, JOINT/BURSA 0 04/06/2022 [address]326, K4636-OFTFR/INJECT, JOINT/BURSA 1 00, Z5360-PEJBW/INJECT, JOINT/BURSA 0 02/08/2023, H9232-UHRTM/INJECT, JOINT/BURSA 1 11/02/201971266, V6559-OUHIG/INJECT, JOINT/BURSA 0 01/02/2021 [address]8549, H8826-QCRVM/INJECT, JOINT/BURSA 0 05/05/2021 60449, U4813-ELHWS/INJECT, JOINT/BURSA 1 [address], H6152-NRUGR/INJECT, JOINT/BURSA 0 12/08/2021 31709, H0027-RFXSB/INJECT, JOINT/BURSA 0 04/08/2016 59762, S1956-KQODO/INJECT, JOINT/BURSA 0 11/02/2016 48661, G5098-QMHJV/INJECT, JOINT/BURSA 0 01/26/2017 56368, T9511-LBNKY/INJECT, JOINT/BURSA 1 11/24/201628411, H0649-UPNKW/INJECT, JOINT/BURSA 0 12/10/2017 [address]76[address], J0192-NBVQW/INJECT, JOINT/BURSA 0 03/14/201802233, M4646-NLRVM/INJECT, JOINT/BURSA 1 10/29/201726937, E6217-NNVDK/INJECT, JOINT/BURSA 0 12/19/2018 98233, X0832-UUGCI/INJECT, JOINT/BURSA 0 04/20/2019, P8976-IIIHQ/INJECT, JOINT/BURSA 1 10/24/201801930, E1627-JTIGE/INJECT, JOINT/BURSA 0 01/01/202075153, V1050-TPLOM/INJECT, JOINT/BURSA 0 06/21/2023 88610, T8595-FMWPH/INJECT, JOINT/BURSA 0 11/01/202355185, P1494-YIESB/INJECT, JOINT/BURSA 0 02/28/202425482, I8303-NDNLX/INJECT, JOINT/BURSA 1 10/17/2023 96909, D3521-BEXDO/INJECT, JOINT/BURSA 0 05/24/202563338,O1477-CNT TENDON SHEATH/LIGAMENT 0 05/02/2020 Next Appt Details Provider Name:Aye Miranda Izaiah , 08/27/2025 08:15:00 AM, [address] [place] [address], [place], [address], Insurance Providers Payer Name Payer Address Payer Phone Subscriber Number Group Number Insured Name Patient Relationship to Insured Coverage Start Date Coverage End Date Medicare National Govt [facility] [address] [place] [address] [id number] Rebekah Suh Self - patient is the insured [employer] ([employer]) [address] [place] [id number] Rebekah Suh Self - patient is [...]
== END 2025-08-06 11:53 | disposition home or self-care (01) ==
LOC: HO.HMGAL 11:51
PROVIDERS: PCP Internal Medicine; Visit Provider Registered Nurse Emergency
DX: J30.89 Other allergic rhinitis (principal)
CPT/HCPCS: 95117; 95165

== ENCOUNTER 2025-08-13 08:47 | Outpatient (REF) | payer MEDICARE, OTHER, SELFPAY ==
--- NOTE | ~2025-08-13 | XR_ITS ---
EXAMINATION: XR CHEST CLINICAL INFORMATION: J06.9 - Acute upper respiratory infection, unspecified COMPARISON: June 04, 2025 TECHNIQUE: 2 views of the chest were obtained. FINDINGS: The lungs are clear and well aerated. Punctate density in the lateral right lung bases consistent with a calcified granuloma, unchanged. The heart size is within normal limits. There is no sign of pleural effusion. There is mild to moderate disc space narrowing in the cervical thoracic spine. XR/XR chest 2V IMPRESSION: No acute disease Electronically signed by: Frederic Milligan MD 08/13/2025 09:47 AM EST
== END 2025-08-13 08:48 | disposition home or self-care (01) ==
LOC: HO.XRAY 08:47
PROVIDERS: PCP Internal Medicine; Visit Provider Student in an Organized Health Care Education/Training Program
DX: K21.9 Gastro-esophageal reflux disease without esophagitis (principal); J06.9 Acute upper respiratory infection, unspecified; M19.90 Unspecified osteoarthritis, unspecified site; G43.009 Migraine without aura, not intractable, without status migrainosus; R10.9 Unspecified abdominal pain; G43.909 Migraine, unspecified, not intractable, without status migrainosus; Z90.5 Acquired absence of kidney; Z85.118 Personal history of other malignant neoplasm of bronchus and lung
CPT/HCPCS: 71046; 96127; 99212

== ENCOUNTER 2025-08-13 08:47 | Outpatient (AMB) | payer MEDICARE, OTHER, SELFPAY ==
--- OUTSIDE RECORDS SUMMARY | 2024-07-03 04:15 | XMS_ITS ---
Author Organization [facility] Address [address] [place] [phone] Care Team Providers Care Urgent Care Technician Name Role Phone Jr Hogue Primary Care Provider [phone] Aye Bliss [phone] Encounters Encounter Location Date Provider Diagnosis [address] [address] 07/03/2024 Aye Bliss Plan Of Treatment Next Appt Details Provider Name:Aye A Izaiah , 08/27/2025 08:15:00 AM, [address] [place] [address], [phone], Progress Notes * Alexander HAHNeDOB: [birth year] (69 yo F)Acc No.[id number]:07/03/2024 Progress Note Patient: Rebekah POLO Provider: Alicja Bliss DPM :1955 A ge:68 Y S ex:Female Date:07/03/2024 Address:[address] [place] [address] [place], [id number] Pcp:Jr Hogue Subjective: * Chief Complaints: * * Medical History: Objective: * Vitals: Assessment: Plan: * Treatment: * Images: * The named appointment provid er may or may not be the originator of this progress note, and it is not deemed complete until electronically signed by the appointment provider. Sign off status: Pending * Provider: Alicja Bliss DPM Date: 0 07/03/2024 Generated for Chandler Curtis on: 10/13/2024 09:23 AM EST
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
--- OUTSIDE RECORDS SUMMARY | 2025-07-04 03:30 | XMS_ITS ---
Author Organization [facility] Address [address] [place] [address] Care Team Providers Care Data Architect Manager Name Role Phone DESHAUN OROURKE Primary Care Provider Amilcar Santiago [phone] REASON FOR VISIT gerd,IBS,change in bowel habits Encounters Encounter Location Date Provider Diagnosis [facility] [place] [address] [place] [phone] 07/04/2025 Amilcar Sosa Plan Of Treatment Next Appt Details Provider Name:Amilcar Sosa , 09/27/2025 09:00:00 AM, [address] [place] [address], [address], [place], [address], Progress Notes * CORDELL COVARRUBIAS EDOB:[birth year] (69 yo F)Acc No.[id number]:07/04/2025 EGD and COL/MAC Patient: Kimberly JIMY CORDELL Mcnair Provider: Gary Sosa MD :1955 A ge:69 Y S ex:Female Date:07/04/2025 Address:[address] [id number] Pcp:DESHAUN OROURKE Subjective: * Chief Complaints: * 1 . gerd,IBS,change in bowel habits. * Medical History: Objective: * Vitals: Assessment: Plan: * Treatment: * * The named appointment provid er may or may not be the originator of this progress note, and it is not deemed complete until electronically signed by the appointment provider. Sign off status: Pending * Provider: Gary Sosa MD Date: 0 07/04/2025 Generated for Chandler bentley/Brennon/Nirav on: 10/13/2024 09:23 AM EST
--- OUTSIDE RECORDS SUMMARY | 2025-08-07 12:54 | XMS_ITS | Encounter Summary ---
Author Organization [facility] Address [address] [place] [address] Phone Care Team Providers Care Seater Grinder Name Role Phone Fallon Dillard MD Unavailable [phone] Jr Hogue MD Primary Care Provid er Encounter Details Date Type Department Care Team (Latest Contact Info) Description 08/07/2025 1:54 PM EDT - 08/07/2025 11:59 PM EDT Hospital Encounter [facility] [place] [address] Ayaan Corrales MD [address] [place] [phone] [email or web address] Discharge Disposition: Home or Self Care Social History Tobacco Use Types Packs/Day Years [...] PM EDT documented as of this encounter Medications at Time of Discharge albuterol 90 mcg/actuation inhaler Inhale 2 puffs into the lungs every 6 (six) hours as needed for wheezing. alendronate (FOSAMAX) 70 MG tablet 70 mg. atorvastatin (LIPITOR) 20 MG tablet Take 20 mg by mouth daily. 03/01/2024 docusate sodium (COLACE) 100 MG capsule Take 1 capsule (100 mg total) by mouth 2 (two) times a day. 30 capsule 06/17/2018 fluticasone propionate (FLONASE) 50 mcg/actuation nasal spray 1 spray by Nasal route daily. omeprazole (PRILOSEC) 10 MG capsule Take 10 mg by mouth daily. propranolol (INDERAL) 10 MG immediate release tablet Take 10 mg by mouth daily. 04/06/2018 therapeutic multivitamin tablet Take 1 tablet by mouth daily. traMADoL (ULTRAM) 50 mg tablet Take 50 mg by mouth. 11/30/2018 documented as of this encounter Plan of Treatment Upcoming Encounters Date Type Department Care Team (Late st Contact Info) Description 09/04/2025 11:50 AM EST Telemedicine [facility] Urology [address] [place] [address] Ayaan Corrales MD [address] [place] [address] [address] [phone] [email or web address] documented as of this encounter Procedures Procedure Name Priority Date/Time Associated Diagnosis Comments BASIC METABOLIC PANEL (BMP) Routine 08/07/2025 2:18 PM EDT Personal history of kidney cancer documented in this encounter Results * (ABNORMAL) Basic metabolic panel (08/07/2025 2:18 PM EDT) SODIUM 139 133 - 146 mmol/L [facility] CHLORIDE 103 96 - 108 mmol/L [facility] POTASSIUM 4.5 3.3 - 5.1 mmol/L [facility] CO2 23 21 - 35 mmol/L [facility] BUN 10 6 - 19 mg/dL [facility] CREATININE 1.00 0.5 - 1.5 mg/dL [facility] GLUCOSE 130(H) 70 - 99 mg/dL [facility] CALCIUM 9.7 8.4 - 10.3 mg/dL [facility] EGFR 61 >59 mL/min/1.7 3m2 [facility] Comment:Estimated glomerular filtration rate calculated using the CKD-EPI refit equation. ANION GAP 18 10 - 20 mmol/L [facility] Blood 08/07/2025 2:18 PM EDT 08/07/2025 2:21 PM EDT us Ayaan Corrales MD LAB BLOOD BKR ORDERABLES Final Result [address] [address] documented in this encounter Visit Diagnoses Diagnosis Personal history of kidney cancer Personal history of malignant neoplasm of kidney documented in this encounter Care Teams Seater Grinder Relationship Specialty Start Date End Date Jr Hogue MD [address] [address] PCP - General Internal Medicine 04/05/25 08/07/25 Fallon Dillard MD [address] [place] [id number] [email or web address] Referring Physician Hematology and Oncology 04/29/18 documented as of this encounter Additional Source Comments The information contained in this document represents components of the legal health record. It is not the complete legal health record.[facility]
--- OUTSIDE RECORDS SUMMARY | 2025-08-08 08:34 | XMS_ITS | Encounter Summary ---
Author Organization [facility] Address [address] [place] [address] Phone Care Team Providers Care Vendor Management Associate Name Role Phone Fallon Dillard MD Unavailable [phone] Chicho Hargrove MD Primary Care Provider Encounter Details Date Type Department Care Team (Latest Contact Info) Description 08/08/2025 9:34 AM EDT - 08/08/2025 11:59 PM EDT Hospital Encounter [facility], X-Ray - [address] [place] [address] Ayaan Corrales MD [address] [place] [id number] [email or web address] Discharge Disposition: Home or Self Care Social [...] Info) Description 09/04/2025 11:50 AM EST Telemedicine [facility] Urology [address] [place] [address] Ayaan Corrales MD [address] [place] [address] [email or web address] documented as of this encounter Procedures Procedure Name Priority Date/Time Associated Diagnosis Comments XR CHEST PA AND LATERAL 2 VIEWS Routine 08/08/2025 11:11 AM EDT Personal history of kidney cancer documented in this encounter Results * XR CHEST PA AND LATERAL 2 VIEWS (08/08/2025 11:11 AM EDT) Anatomical Region Laterality Modality Chest Computed Radiogr aphy 08/08/2025 12:0 5 PM EDT Impressions 08/08/2025 12:06 PM EDT No acute findings. Narrative 08/08/2025 12:06 PM EDT XR CHEST PA AND LATERAL 2 VIEWS Referring clinician's provided indication for this examination in [facility]: Urologic cancer, surveillance; History of kidney cancer COMPARISON: XR CHEST PA AND LATERAL 2 VIEWS FINDINGS: Devices/Tubes/Lines: None. Lungs: The lungs are clear. No focal consolidation or pulmonary edema. Pleura: No pleural effusion or pneumothorax. Heart/Mediastinum: Cardiac silhouette and mediastinal contours are within normal limits. Bones/Soft Tissues: No acute osseous finding. Partially visualized upper abdomen: Unremarkable. Procedure Note Arielle Apodaca MD - 08/08/2025 XR CHEST PA AND LATERAL 2 VIEWS Referring clinician's provided indication for this examination in [facility]:Urologic cancer, surveillance; History of kidney cancer COMPARISON: XR CHEST PA AND LATERAL 2 VIEWS FINDINGS: Devices/Tubes/Lines: None. Lungs: The lungs are clear. No focal consolidation or pulmonary edema. Pleura: No pleural effusion or pneumothorax. Heart/Mediastinum: Cardiac silhouette and mediastinal contours are withinnormal limits. Bones/Soft Tissues: No acute osseous finding. Partially visualized upper abdomen: Unremarkable. IMPRESSION: No acute findings. Ayaan Corrales MD IMG XR CHEST Final Result documented in this encounter Visit Diagnoses Diagnosis Personal history of kidney cancer Personal history of malignant neoplasm of kidney documented in this encounter Care Teams Vendor Management Associate Relationship Specialty Start Date End Date Chicho Hargrove MD [address] [place] [address] Drive [address] [place] [address] PCP - General Internal Medicine 08/08/25 Fallon Dillard MD [address] [place] [address] [email or web address] Referring Physician Hematology and Oncology 04/29/18 documented as of this encounter Additional Source Comments The information contained in this document represents components of the legal health record. It is not the complete legal health record.[facility]
--- OUTSIDE RECORDS SUMMARY | 2025-08-08 08:34 | XMS_ITS | Encounter Summary ---
Author Organization [facility] Address [address] [place] [address] Phone Care Team Providers Care Director Of Personnel Name Role Phone Fallon Dillard MD Unavailable [phone] Chicho Hargrove MD Primary Care Provider [phone] Reason for Referral * MRI/CAT Scan - Closed Specialty Diagnoses / Procedures Referred By Tia alan Referred To Contact Radiology Diagnoses Personal history of kidney cancer Procedures MRI Abdomen Ayaan Corrales MD Phone: tel: fax: mailto:[email or web address] Referral ID Status Reason Start Date Expiration Date Visits Re quested Visits Authorized [id number] Closed 08/15/2024 08/15/2025 1 1 Reason for Visit * MRI/CAT Scan - Closed Specialty Diagnoses / Procedures Referred By Tia alan Referred To Contact Radiology Diagnoses Personal history of kidney cancer Procedures MRI Abdomen Ayaan Corrales MD Phone: tel: fax: mailto:[email or web address] Referral ID Status Reason Start Date Expiration Date Visits Re quested Visits Authorized [id number] Closed 08/15/2024 08/15/2025 1 1 Encounter Details Date Type Department Care Team (Latest Contact Info) Description 08/08/2025 9:34 AM EDT - 08/08/2025 11:59 PM EDT Hospital Encounter [facility], [facility] - [address] [place], [place] [address] Ayaan Corrales MD [address] [place] [address] [address] [place] [address] [email or web address] Discharge Disposition: Home or Self Care Social [...] Info) Description 09/04/2025 11:50 AM EST Telemedicine [facility] Urology [address] [facility] [place] [address] Ayaan Corrales MD [address] [place] [address] [address] [place] [address] [email or web address] Pending Results Name Type Priority Associated Diagnoses Date /Time MRI Abdomen Imaging Routine Personal history of kidney cancer 08/08/2025 1:02 PM EDT Scheduled Orders Name Type Priority Associated Diagnoses Orde r Schedule MRI Abdomen Imaging Routine Personal history of kidney cancer As Needed for 1 Occurrences starting 08/08/2025 until 08/08/2025 documented as of this encounter Visit Diagnoses Diagnosis Personal history of kidney cancer Personal history of malignant neoplasm of kidney documented in this encounter Administered Medications Inactive Administered Medications - up to 3 most recent administrations Medication Order MAR Action Action Date Dose Rate Site gadoterate meglumine (DOTAREM/CLARISCAN) 0.5 mmol/mL (376.9 mg/mL) injection 12 mL 12 mL (rounded from 12.24 mL = 0.1 mmol/kg 61.2 kg), Intravenous, Once as needed, pre procedure/treatment, imaging, Starting on Wed08/08/25 at 1140, For 1 dose, Procedural Contrast/Med Active Now Given 08/08/2025 11:41 AM EDT 12 mL Left Arm documented in this encounter Care Teams Director Of Personnel Relationship Specialty Start Date End Date Chicho Hargrove MD [address] [place] [address] PCP - General Internal Medicine 08/08/25 Fallon Dillard MD [address] [place] [address] [email or web address] Referring Physician Hematology and Oncology 04/29/18 documented as of this encounter Additional Source Comments The information contained in this document represents components of the legal health record. It is not the complete legal health record.[facility]
--- NOTE | 2025-08-13 08:52 | MHC.PC.OV ---
Vital Signs 08/13/25 08:53 Height 5 ft 4 in Weight 138 lb 6 oz BMI 23.7 BP 134/76 Blood Pressure Location Lt brachial Position Sitting Pulse 105 H Pulse Source Pulse Oximeter Temp 97.6 F Temp Source Temporal Artery Scan Pulse Oximetry (%) 97 Oxygen Delivery Method Room Air Intake Visit Reasons: Cough Congestion sinus pressure x2 week Family Day Carer Required: No Accompanied by: Self / Same As Patient Allergies fentanyl (FENTANYL) Allergy (Severe, Verified 08/13/25 08:53) SEVERE VOMITING, severe headache, vomiting sulfamethoxazole (From BACTRIM) Allergy (Severe, Verified 08/13/25 08:53) CANNOT TAKE-ONLY HAS ONE KIDNEY trimethoprim (From BACTRIM) Allergy (Severe, Verified 08/13/25 08:53) CANNOT TAKE-ONLY HAS ONE KIDNEY Medication List - Last Reconciled 08/13/25 by Chicho Hargrove MD albuterol sulfate 90 mcg/actuation 2 puffs PO Q4-6H PRN alendronate 70 mg PO QWEEK atorvastatin (Lipitor) 20 mg PO DAILY azithromycin For 250 mg dose pack: take 500 mg today (day 1), then 250 mg for 4 days (days 2-5) PO calcium carbonate-vitamin D3 500 mg-3.125 mcg (125 unit) 1 tab PO DAILY fluticasone propionate 50 mcg/actuation 1 spray intranasal DAILY PRN fmxcvynqgqly-zkutsriq-hzzvjv 1 tab PO DAILY omeprazole magnesium (Prilosec OTC) 20 mg PO DAILY polyethylene glycol 3350 (Miralax) 17 grams PO DAILY polyethylene glycol 3350 (Miralax) 17 grams PO BID prednisone 50 mg PO DAILY propranolol 10 mg PO DAILY psyllium husk (Metamucil) 0.4 grams PO DAILY sumatriptan succinate take 1 tab at onset of headache; if no relief may repeat 1 tab after at least 2 hrs; max = 4 tabs/24 hr PO Tobacco use date assessed: 08/13/25 Fall risk assessment: No Falls in past year Last assessed Fall Risk: 08/13/25 Dental Screening Dental Screen Date: 08/13/25 Did you have a dental visit in the last 12 months?: Yes Did you have a dental problem in the last 6 months where you did not have access to dental care?: No HPI HPI Comments History of Present Illness Details The patient is a 69-year-old female presenting with a significant cough. She reports coughing up copious amounts of clear mucus, which disrupts her sleep and persists throughout the day. This is a recurrence of a similar illness from May, which was diagnosed as bronchitis and required three rounds of both prednisone and antibiotics to resolve. Associated symptoms include chills, but she denies any fever. The patient has a history of being prone to sinus infections and has an upcoming appointment with a new ENT in December. For her symptoms, she has been taking Mucinex, Zyrtec, and Flonase daily, without significant relief. The patient has a history of cancer and is prone to lung cancer, for which she undergoes screening. A surveillance chest X-ray and MRI were performed last week, with the X-ray results reported as normal and the MRI results pending. In addition, she reports that for the past five days, her bowel movements have been very loose. She also has a history of arthritis in her shoulder, and recently experienced an episode of sweating and feeling awful during physical therapy, which was attributed to deconditioning. She was previously on tramadol for arthritis pain but was told to stop and is not currently taking anything for the pain. Her medical history is also significant for migraines, for which she takes propranolol and was prescribed sumatriptan, though she reports the latter has not been helpful in the two times she has taken it. Medical History: - Bronchitis (diagnosed in May) - Chronic sinusitis - History of unspecified cancer (undergoing screening) - Predisposition to lung cancer - Arthritis of the shoulder - Kidney condition (contraindication to Bactrim) - Migraines - Hypercholesterolemia - Acid reflux - Anxiety - Lumbar syndrome - Leukocytosis Medications: - Mucinex for cough - Zyrtec daily for allergies - Fluticasone (Flonase) nasal spray daily for allergies - Alendronate once weekly - Albuterol inhaler as needed, with recent use - Atorvastatin 20 mg for cholesterol - Calcium with vitamin D supplement - Omeprazole for acid reflux - MiraLax for bowel regularity - Propranolol for headaches - Sumatriptan for headaches, taken two or three times without relief - Psyllium for bowel regularity Diagnostic Results: - Chest X-ray (last week): Reported as normal. - MRI (last week): Results are pending. - CT scan: Performed recently, results pending. - Blood work (recent): Reported as looking good. - COVID-19 test (yesterday): Negative. Social History; - Functional Status: Patient reports being deconditioned, evidenced by an episode of becoming sweaty and feeling unwell after 30 minutes of physical therapy exercises. 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 History of kidney cancer Chronic kidney disease Migraines Osteoarthritis Fibromyalgia Hypercholesteremia Surgical History History of bladder surgery History of colonoscopy (07/04/25) History of hernia repair H/O hysterectomy for benign disease Hx of surgical procedure (~08/03/23) H/O vaginal hysterectomy History of incisional hernia repair (~11/29/19) History of nephrectomy, left (~06/2018) Status post biopsy of kidney (~04/2018) History of breast biopsy (~05/11/14) History of tonsillectomy and adenoidectomy S/P removal of left ovary (~1978) History of removal of cyst (~1972) History of ankle surgery (~2003) H/O kidney removal History of breast surgery Hx of tonsillectomy Family History (Updated 08/13/25 @ 09:00 by Che Richardson MA) Father Stomach cancer Prostate cancer High cholesterol Sister Stroke Mother High cholesterol CLL (chronic lymphocytic leukemia) Maternal Aunt Breast cancer Social History Household Members: Spouse Housing: House Are you a primary dog day care attendant to a significant other at home: No Do you presently have visiting nurse or other home services: No Alcohol intake: current Alcohol intake frequency: holidays/special occasions only Patient Tobacco Use Status: Never used Tobacco e-Cigarette/Vaping Use: Never Used Advance Directives Date on File: 07/25/20 service: No Current occupational status: 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 1. Little interest or pleasure in doing things: not at all 2. Feeling down, depressed, or hopeless: nearly every day 3. Trouble falling or staying asleep, or sleeping too much: nearly every day (trouble falling asleep and staying asleep) 4. Feeling tired or having little energy: nearly every day 5. Poor appetite or overeating: nearly every day (poor appetite) 6. Feeling bad about yourself - or that you are a failure or have let yourself or your family down: not at all 7. Trouble concentrating on things, such as reading the newspaper or watching television: not at all 8. Moving or speaking so slowly that other people could have noticed. Or the opposite - being so fidgety or restless that you have been moving around a lot more than usual: not at all 9. Thoughts that you would be better off or of hurting yourself in some way: not at all Total score: 12 Source: Developed by Drs. Amilcar Tyler, Lay Madison, Nicholas Hodge and colleagues, with an educational hung from [employer]. Thrive Questionnaire Date Thrive assessed: 08/13/25 I am a: Patient Within the past 12 months, did the food you bought not last and you didn't have the money to get more?: Never true Within the past 12 months, did you worry whether your food would run out before you got money to buy more?: Never true Do you have trouble paying for medicines?: No Do you have trouble getting transportation to medical appointments?: No Do you have trouble paying your heating and electricity bill?: No Do you have trouble taking care of your child, family member or friend?: No Do you have trouble with day-to-day activities such as bathing, preparing meals, shopping, managing finances, etc.?: No Are you currently unemployed and looking for a job?: No Are you interested in more education?: No THRIVE Score: 0 AUDIT C Alcohol Use Questionnaire (AUDIT-C) 1. How often do you have a drink containing alcohol?: Monthly or less 2. How many drinks containing alcohol do you have on a typical day when you are drinking?: 1 or 2 3. How often do you have six or more drinks on one occasion?: Less than monthly Total Score: 2 YUNI-7 AMB Questionnaire YUNI-7 Date YUNI - 7 assessed: 08/13/25 Feeling nervous, anxious, or on edge: 3 = Nearly every day (anxiety) Not being able to stop or control worryin = Nearly every day Worrying too much about different things: 3 = Nearly every day Trouble relaxin = Several days Being so restless that it is hard to sit still: 0 = Not at all Becoming easily annoyed or irritable: 0 = Not at all Feeling afraid as if something awful might happen: 0 = Not at all Total YUNI-7 score (0-4 normal; 5-9 mild; 10-14 moderate; 15-21 severe): 10 Source: Developed by Drs. Amilcar Tyler, Lay Madison, Nicholas Hodge and colleagues, with an educational hung from [employer]. Review of Systems Narrative - Respiratory: Reports a severe, productive cough with clear mucus, which disrupts sleep and occurs most of the day. - Constitutional: Reports chills and feeling deconditioned. Denies fever. - Cardiovascular: Reports a subjective feeling that her heart has been beating fast lately. - Gastrointestinal: Reports very loose stools for the past five days. Reports normal urination. - ENT: Reports being prone to sinus infections. - Neurological: Reports history of migraines. All systems reviewed & are unremarkable except as reviewed in HPI and above Physical exam (Primary Care) Vital Signs: Last Vital Signs Temp 97.6 F 08/13/25 08:53 Pulse 105 H 08/13/25 08:53 BP 134/76 08/13/25 08:53 Pulse Ox 97 08/13/25 08:53 Oxygen Delivery Method Room Air 08/13/25 08:53 BMI result Body Mass Index 23.7 Tobacco/Smoking Status: Tobacco use Status Tobacco use date assessed 08/13/25 08/13/25 09:02 Patient Tobacco Use Status Never used Tobacco 08/13/25 09:02 e-Cigarette/Vaping Use Never Used 08/13/25 09:02 PHQ-9: PHQ-9 Score PHQ-9: Total score 12 08/13/25 09:02 Thrive Assessment: Date of Thrive Assessment Date Thrive assessed 08/13/25 08/13/25 09:02 Narrative General: +Alert and oriented, Well nourished, No acute distress. Eye: Pupils are equal, round and reactive to light, Intact accommodation, Extraocular movements are intact, Normal conjunctiva, Vision unchanged. HENT: Normocephalic, Atraumatic, Tympanic membranes are clear, Normal hearing, Oral mucosa is moist, No pharyngeal erythema, Ear canals patent. Respiratory: Lungs CTA bilaterally, No wheeze, Respirations are non-labored, Coughing up clear mucus, History of bronchitis, Recent chest x-ray clear. Cardiovascular: Regular rate, Regular rhythm, S1 auscultated, S2 auscultated, No murmur, Good pulses equal in all extremities, Normal peripheral perfusion, No edema. Gastrointestinal: Soft, Non-tender, Non-distended, Normal bowel sounds, No organomegaly, Loose stools for the past five days. Musculoskeletal: Normal range of motion, Normal strength, No tenderness, No swelling, No deformity, Normal gait, History of shoulder arthritis, Recent physical therapy. Integumentary: Warm, Dry, [place], Intact. Neurologic: Alert, Oriented, Normal sensory, Normal motor function, No focal defects, Cranial Nerves II-XII are grossly intact, Normal deep tendon reflexes. Psychiatric: Cooperative, Appropriate mood & affect, Normal judgment, Reports anxiety related to waiting for MRI results. Coding Level of Care Code Est Pt Level 4 (77703) Complex EM visit Add On G2211 Diagnoses Upper respiratory tract infection, unspecified type J06.9 URI type: unspecified URI Acquired solitary kidney Z90.5 Osteoarthritis, unspecified osteoarthritis type, unspecified site M19.90 Osteoarthritis location: unspecified site Osteoarthritis type: unspecified Migraine without aura and without status migrainosus, not intractable G43.009 Migraine type: without aura Status migrainosus presence: without status migrainosus Intractability: not intractable Left sided abdominal pain of unknown cause R10.9 Assessment & Plan Assessment & Plan (1) URI (upper respiratory infection): Comment: - The patient presents with symptoms consistent with bronchitis, similar to a previous episode. - Although her lungs are clear on auscultation, there is concern for underlying pneumonia given the duration and severity of her cough. - The plan is to order a chest x-ray today. - She will be started on a 5-day course of prednisone and a 5-day course of azithromycin for its anti-inflammatory properties. - She has been advised to use Robitussin for cough, avoid Mucinex, and temporarily discontinue Flonase nasal spray. - She will also get tested for influenza. Code(s): J06.9 - Acute upper respiratory infection, unspecified Category: Medical Qualifiers: URI type: unspecified URI Qualified Code(s): J06.9 - Acute upper respiratory infection, unspecified (2) Acquired solitary kidney: Comment: - Continue routine surveillance for recurrence of kidney cancer with annual imaging. - Maintain appropriate management for single kidney function. - The patient is awaiting results from a recent surveillance MRI (Completed last week) - The results will be forwarded to this office for review. Code(s): Z90.5 - Acquired absence of kidney Category: Medical (3) Osteoarthritis: Comment: - The patient has been without medication for her arthritis pain since stopping tramadol. - She has been advised to use Tylenol as needed for pain. Code(s): M19.90 - Unspecified osteoarthritis, unspecified site Category: Medical Qualifiers: Osteoarthritis location: unspecified site Osteoarthritis type: unspecified Qualified Code(s): M19.90 - Unspecified osteoarthritis, unspecified site (4) Migraines: Comment: - The patient's prescribed sumatriptan has not been effective after two trials. - She is advised to continue giving it more time. - She will continue taking propranolol for migraine prevention. Code(s): G43.909 - Migraine, unspecified, not intractable, without status migrainosus Category: Medical Qualifiers: Migraine type: without aura Status migrainosus presence: without status migrainosus Intractability: not intractable Qualified Code(s): G43.009 - Migraine without aura, not intractable, without status migrainosus (5) Left sided abdominal pain of unknown cause: Comment: - Has reported improvement in symptoms since starting miralax, however now having diarrhea - She has been advised to reduce her intake of MiraLax. Code(s): R10.9 - Unspecified abdominal pain Category: Medical Plan: Health Maintenance: - Cancer Screening: Patient recently underwent a chest x-ray, CT scan, and MRI as part of her cancer screening protocol. MRI results are pending. - Influenza Testing: Advised to get tested for the flu. - Exercise: Encouraged to continue with physical therapy exercises for her back. Patient was informed and verbally consented to the use of an ambient scribe for clinic note documentation during this visit. Plan I discussed the patient's severe cough with her. I explained that although her lungs sound clear on exam, I am ordering a chest x-ray today to rule out pneumonia, given her symptoms and history. I informed her that I am prescribing a 5-day course of prednisone and a 5-day course of azithromycin. I explained that while I don't see clear signs of a bacterial infection, azithromycin has known anti-inflammatory properties that can help with her lung symptoms. We also reviewed her medications. I advised her to stop Mucinex and temporarily hold her Flonase nasal spray, explaining that overuse can sometimes worsen symptoms. For her migraines, I encouraged her to give sumatriptan more time to work. For arthritis pain, I recommended Tylenol as needed, as she is no longer taking tramadol. We discussed the pending results for her recent MRI screening, and I confirmed they will be sent to my office. Her next follow-up visit is already scheduled for September. Orders: Orders XR chest 2V Today J06.9 - Acute upper respiratory infection, unspecified Medications: New prednisone 50 mg PO DAILY 5 tabs 0RF azithromycin For 250 mg dose pack: take 500 mg today (day 1), then 250 mg for 4 days (days 2-5) PO 6 tabs 0RF Patient Instructions: - Please go for a chest x-ray today as ordered. - Take the 5-day course of prednisone as prescribed. - Take the 5-day course of azithromycin (Z-Espinoza) as prescribed. - Please get tested for the flu at a pharmacy such as [facility]. - You can use keku-[id number]-tepmoyu Robitussin for your cough if it is bothering you. - Please stop taking Mucinex. - Stop using your Flonase nasal spray for now unless your allergies are extreme. - Continue to use your albuterol inhaler if you need it. - For your loose stools, try cutting down on your MiraLax. - Continue taking propranolol for your headaches and give the new sumatriptan medication a few more tries before deciding it doesn't work. - You can take Tylenol as needed for your arthritis pain. - We will contact you if your x-ray results are abnormal. - Keep your scheduled follow-up appointment for September.
[2025-08-13 08:53] VITALS: BP 134/76; PULSE 105; TEMP 36.4; O2SAT 97; BMI 23.7
--- OUTSIDE RECORDS SUMMARY | 2025-08-13 09:22 | XMS_ITS | Encounter Summary ---
Author Organization [facility] Address [address] [place] [address] Phone Care Team Providers Care Firmware Architect Name Role Phone Regino Coleman MD Primary Care Provider Fallon Dillard MD Unavailable [phone] Jr Hogue MD Primary Care Provid er Chicho Hargrove MD Primary Care Provider [phone] Encounter Details Date Type Department Care Team (Late st Contact Info) Description 06/16/2018 Procedure Pass [facility] Periop [address] [place] [address] Social History Tobacco Use Types Packs/Day Years [...] Encounters Date Type Department Care Team (Late Contact Info) Description 09/04/2025 11:50 AM EST Telemedicine [facility] Urology [address] [facility]2-3 [place] [address] Ayaan Corrales MD [address] [place] [address] 11[address] [place] [address] [email or web address] documented as of this encounter Visit Diagnoses Not on filedocumented in this encounter Care Teams Firmware Architect Relationship Specialty Start Date End Date Regino Coleman MD [address] [place] [address] PCP - General Internal Medicine 04/29/18 04/04/25 Jr Hogue MD [address] [place] [address] PCP - General Internal Medicine 04/05/25 08/07/25 Chicho Hargrove MD [address] [place] [address] PCP - General Internal Medicine 08/08/25 Fallon Dillard MD [address] [place] [address] [email or web address] Referring Physician Hematology and Oncology 04/29/18 documented as of this encounter Additional Source Comments The information contained in this document represents components of the legal health record. It is not the complete legal health record.[facility]
--- OUTSIDE RECORDS SUMMARY | 2025-08-13 09:22 | XMS_ITS | Encounter Summary ---
Author Organization [facility] Address [address] [place] [address] Phone Care Team Providers Care Ammonia Still Operator Name Role Phone Regino Coleman MD Primary Care Provider Fallon Dillard MD Unavailable [phone] Jr Hogue MD Primary Care Provid er Chicho Hargrove MD Primary Care Provider [phone] Encounter Details Date Type Department Care Team (Late st Contact Info) Description 05/11/2022 Procedure Pass [facility], [address] [address] Social History Tobacco Use Types Packs/Day Years [...] Info) Description 09/04/2025 11:50 AM EST Telemedicine [facility] Urology [address] [place], [place] [address] [place] [address] Ayaan Corrales MD [address] [place] [address] [address] [place] [address] [email or web address] documented as of this encounter Visit Diagnoses Not on filedocumented in this encounter Care Teams Ammonia Still Operator Relationship Specialty Start Date End Date Regino Coleman MD [address] [place] [address] PCP - General Internal Medicine 04/29/18 04/04/25 Jr Hogue MD [address] [address] PCP - General Internal Medicine 04/05/25 08/07/25 Chicho Hargrove MD [address] [place] [address] PCP - General Internal Medicine 08/08/25 Fallon Dillard MD [address] [place] [address] [email or web address] Referring Physician Hematology and Oncology 04/29/18 documented as of this encounter Additional Source Comments The information contained in this document represents components of the legal health record. It is not the complete legal health record.[facility]
--- OUTSIDE RECORDS SUMMARY | 2025-08-13 09:22 | XMS_ITS | Encounter Summary ---
Author Organization [facility] Address [address] [place] [address] Phone Care Team Providers Care Lithographic Photographer Apprentice Name Role Phone Regino Coleman MD Primary Care Provider Fallon Dillard MD Unavailable [phone] Jr Hogue MD Primary Care Provid er Chicho Hargrove MD Primary Care Provider Encounter Details Date Type Department Care Team (Late st Contact Info) Description 05/24/2018 Procedure Pass [facility] OUTSIDE IMG [address] [place] [address] Social History Tobacco Use Types Packs/Day Years [...] Info) Description 09/04/2025 11:50 AM EST Telemedicine [facility] Urology [address] [place], [place] [address]52[address] [place] [address] Ayaan Corrales MD [address] [place] [address] 11[address] [place] [address] [email or web address] documented as of this encounter Visit Diagnoses Not on filedocumented in this encounter Care Teams Lithographic Photographer Apprentice Relationship Specialty Start Date End Date Regino Coleman MD [address] [place] [address] PCP - General Internal Medicine 04/29/18 04/04/25 Jr Hogue MD [address] [place] [address] PCP - General Internal Medicine 04/05/25 08/07/25 Chicho Hargrove MD [address] [place] [address] PCP - General Internal Medicine 08/08/25 Fallon Dillard MD [address] [place] [address] [email or web address] Referring Physician Hematology and Oncology 04/29/18 documented as of this encounter Additional Source Comments The information contained in this document represents components of the legal health record. It is not the complete legal health record.[facility]
--- OUTSIDE RECORDS SUMMARY | 2025-08-13 09:23 | XMS_ITS | Encounter Summary ---
Author Organization [facility] Address [address] [place] [address] Phone Care Team Providers Care Project Economist Name Role Phone Regino Coleman MD Primary Care Provider Fallon Dillard MD Unavailable [phone] Jr Hogue MD Primary Care Provid er Chicho Hargrove MD Primary Care Provider Encounter Details Date Type Department Care Team (Late st Contact Info) Description 06/10/2021 Ancillary Orders [facility],Outside Imaging [address] [place] [address] System, Provider Not In, PhD Partners [address] [address] Social History Tobacco Use Types Packs/Day Years [...] AM EST Telemedicine [facility] Urology 45 [facility] ASB2-3 [place] [address] Ayaan Corrales MD [address] [place] [address], [facility] 11-3 [place] [address] [email or web address] documented as of this encounter [...] on filedocumented in this encounter Care Teams Project Economist Relationship Specialty Start Date End Date Regino Coleman MD [address] [place] [address] PCP - General Internal Medicine 04/29/18 04/04/25 Jr Hogue MD [address] [place] [address] PCP - General Internal Medicine 04/05/25 08/07/25 Chicho Hargrove MD [address] [place] [address] PCP - General Internal Medicine 08/08/25 Fallon Dillard MD [address] [place] [address] [email or web address] Referring Physician Hematology and Oncology 04/29/18 documented as of this encounter Additional Source Comments The information contained in this document represents components of the legal health record. It is not the complete legal health record.[facility]
--- OUTSIDE RECORDS SUMMARY | 2025-08-13 09:23 | XMS_ITS | Encounter Summary ---
Author Organization [facility] Address [address] [place] [address] Phone Care Team Providers Care Nursing Support Worker Name Role Phone Regino Coleman MD Primary Care Provider Fallon Dillard MD Unavailable [phone] Jr Hogue MD Primary Care Provid er Chicho Hargrove MD Primary Care Provider [phone] Encounter Details Date Type Department Care Team (Late st Contact Info) Description 08/15/2024 Procedure Pass [address] [place] [address] Social History Tobacco Use Types Packs/Day Years [...] Info) Description 09/04/2025 11:50 AM EST Telemedicine [facility] Urology 45 [facility]2-3 [place] [address] Ayaan Corrales MD 45 [facility] 11-[address] [place] [address] [email or web address] documented as of this encounter Visit Diagnoses Not on filedocumented in this encounter Care Teams Nursing Support Worker Relationship Specialty Start Date End Date Regino Coleman MD [address] [place] [address] PCP - General Internal Medicine 04/29/18 04/04/25 Jr Hogue MD [address] [place] [address] PCP - General Internal Medicine 04/05/25 08/07/25 Chicho Hargrove MD [address] [place] [address] PCP - General Internal Medicine 08/08/25 Fallon Dillard MD [address] [place] [address] [email or web address] Referring Physician Hematology and Oncology 04/29/18 documented as of this encounter Additional Source Comments The information contained in this document represents components of the legal health record. It is not the complete legal health record.[facility]
--- OUTSIDE RECORDS SUMMARY | 2025-08-13 09:23 | XMS_ITS | Encounter Summary ---
Author Organization [facility] Address [address] [place] [address] Phone Care Team Providers Care Wet Mix Operator Name Role Phone Regino Coleman MD Primary Care Provider Fallon Dillard MD Unavailable [phone] Jr Hogue MD Primary Care Provid er Chicho Hargrove MD Primary Care Provider Encounter Details Date Type Department Care Team (Late st Contact Info) Description 06/10/2021 Ancillary Orders [facility],Outside Imaging 30 [place] [address] System, Provider Not In, PhD Partners [address] [address] Social History Tobacco Use Types Packs/Day Years [...] Info) Description 09/04/2025 11:50 AM EST Telemedicine [facility] Urology 45 [facility] ASB2-3 [place] [address] Ayaan Corrales MD [address] [place] [address], [facility] 11-[address] [place] [address] [email or web address] documented as of this encounter Results [...] on filedocumented in this encounter Care Teams Wet Mix Operator Relationship Specialty Start Date End Date Regino Coleman MD [address] [place] [address] PCP - General Internal Medicine 04/29/18 04/04/25 Jr Hogue MD [address] [place] [address] PCP - General Internal Medicine 04/05/25 08/07/25 Chicho Hargrove MD [address] [place] [address] PCP - General Internal Medicine 08/08/25 Fallon Dillard MD [address] [place] [address] [email or web address] Referring Physician Hematology and Oncology 04/29/18 documented as of this encounter Additional Source Comments The information contained in this document represents components of the legal health record. It is not the complete legal health record.[facility]
--- OUTSIDE RECORDS SUMMARY | 2025-08-13 09:23 | XMS_ITS | Encounter Summary ---
Author Organization [facility] Address [address] [place] [address] Phone Care Team Providers Care Technical Implementation Lead Name Role Phone Regino Coleman MD Primary Care Provider Fallon Dillard MD Unavailable [phone] Jr Hogue MD Primary Care Provid er Chicho Hargrove MD Primary Care Provider [phone] Encounter Details Date Type Department Care Team (Late st Contact Info) Description 08/19/2023 Procedure Pass [facility], [address] [address] Social History Tobacco Use Types Packs/Day Years [...] Info) Description 09/04/2025 11:[address] [facility] Urology 45 [facility]2-3 [place] [address] Ayaan Corrales MD 45 [facility] 11-3 [place] [address] [email or web address] documented as of this encounter Visit Diagnoses Not on filedocumented in this encounter Care Teams Technical Implementation Lead Relationship Specialty Start Date End Date Regino Coleman MD [address] [place] [address] PCP - General Internal Medicine 04/29/18 04/04/25 Jr Hogue MD [address] [place] [address] PCP - General Internal Medicine 04/05/25 08/07/25 Chicoh Hargrove MD [address] [place] [address] PCP - General Internal Medicine 08/08/25 Fallon Dillard MD [address] [place] [address] [email or web address] Referring Physician Hematology and Oncology 04/29/18 documented as of this encounter Additional Source Comments The information contained in this document represents components of the legal health record. It is not the complete legal health record.[facility]
--- OUTSIDE RECORDS SUMMARY | 2025-08-13 09:23 | XMS_ITS | Clinical Summary ---
Author Organization [facility] Address [address] [place] [address] Phone Care Team Providers Care Nurse Sexual Assault Name Role Phone Fallon Dillard MD Unavailable [phone] Chicho Hargrove MD Primary Care Provider [phone] Allergies Active Allergy Reactions Criticality Noted Date [...] with hand surgeon Dr. Mary Boss in [place] Regular use of meloxicam previously effective, but [...] & Plan (06/15/2019 8:30 AM EDT): Assessment: Rebeakh Hahn is a 63 y.o. female who [...] will continue to follow up with her natural gas trader to optimize renal function. Assessment & Plan [...] will continue to follow up with her natural gas trader to optimize renal function. Assessment & Plan [...] initially though review of the pathology by [facility], Department of Pathology suggests that it [...] Encounters Date Type Department Care Team Description 08/08/2025 9:34 AM EDT - 08/08/2025 11:59 PM EDT Hospital Encounter [facility], X-Ray - [address] [place] [address] Ayaan Corrales MD Discharge Disposition: Home or Self Care 08/08/2025 9:34 AM EDT - 08/08/2025 11:59 PM EDT Hospital Encounter [facility], [address] [place], [place] [address] Ayaan Corrales MD Discharge Disposition: Home or Self Care 08/07/2025 1:54 PM EDT - 08/07/2025 11:59 PM EDT Hospital Encounter [facility] [address] [place] [address] Ayaan Corrales MD Discharge Disposition: Home or Self Care 08/15/2024 Procedure Pass [address] [place], [place] [address] from Last 3 Months Immunizations Immunization Administration [...] Info) Description 09/04/2025 11:50 AM EST Telemedicine [facility] Urology [address] [place], [place] [address] [place] [address] Ayaan Corrales MD [address] [place] [address] 113 [place] [address] [email or web address] Health Maintenance Due Date Last [...] AM EDT Personal history of kidney cancer BASIC METABOLIC PANEL (BMP) Routine 08/07/2025 2:18 PM EDT Personal history of kidney cancer from Last 3 Months Results * XR CHEST PA AND LATERAL 2 VIEWS (08/08/2025 11:11 AM EDT) Anatomical Region Laterality Modality Chest Computed Radiogr aphy 08/08/2025 12:0 5 PM EDT Impressions 08/08/2025 12:06 PM EDT No acute findings. Narrative 08/08/2025 12:06 PM EDT XR CHEST PA AND LATERAL 2 VIEWS Referring clinician's provided indication for this examination in [facility]: Urologic cancer, surveillance; History of kidney cancer [...] clinician's provided indication for this examination in [facility]:Urologic cancer, surveillance; History of kidney cancer COMPARISON: [...] Corrales MD IMG XR CHEST Final Result * (ABNORMAL) Basic metabolic panel (08/07/2025 2:18 PM EDT) SODIUM 139 133 - 146 mmol/L [facility] CHLORIDE 103 96 - 108 mmol/L [facility] POTASSIUM 4.5 3.3 - 5.1 mmol/L [facility] CO2 23 21 - 35 mmol/L [facility] BUN 10 6 - 19 mg/dL [facility] CREATININE 1.00 0.5 - 1.5 mg/dL [facility] GLUCOSE 130(H) 70 - 99 mg/dL [facility] CALCIUM 9.7 8.4 - 10.3 mg/dL [facility] EGFR 61 >59 mL/min/1.7 3m2 [facility] Comment:Estimated glomerular filtration rate calculated using the CKD-EPI refit equation. ANION GAP 18 10 - 20 mmol/L [facility] Blood 08/07/2025 2:18 PM EDT 08/07/2025 2:21 PM EDT Ayaan Corrales MD LAB BLOOD BKR ORDERABLES Final Result Performing Organization Address City/State/[facility] Co de Phone Number [facility] [address] [place] [address] from Last 3 Months Insurance MEDICARE PART A & B [facility] EXTENSION MEDICARE SUPPLEMENT MEDICARE PART A & B [facility] EXTENSION MEDICARE SUPPLEMENT MEDICARE PART A & B Member Subscriber Plan / Payer (Ef fective 2019-Present) Name:Rebekah Hahn Member ID:[id number] Relation to Subscriber:Self Name:Rebekah Hahn Subscriber ID:[id number] Payer ID:[id number] Group ID:Not on file Type:Medicare Address: [employer] [address] [place] [address] [place] [address] EXTENSION MEDICARE SUPPLEMENT MEDICARE PART A & B [facility] EXTENSION MEDICARE SUPPLEMENT MEDICARE PART A & B [employer] MEDICARE SUPPLEMENT MEDICARE PART A & B [employer] MEDICARE SUPPLEMENT MEDICARE PART A & B [facility] EXTENSION MEDICARE SUPPLEMENT MEDICARE PART A & B [facility] [employer] [address] MEDICARE PART A & B [facility] EXTENSION MEDICARE SUPPLEMENT Member Subscriber Plan / Payer (Ef fective 2019-Present) Name:Rebekah Hahn Relation to Subscriber:Self Name:Rebekah Hahn Payer ID:[id number] (NAIC) Type:Indemnity Address: [address] [place] [address] [place] [address] Advance Directives For more information, please contact: [phone] (9AM - 5PM [facility], Wednesday-Wednesday) Documents on File Type Date Recorded Patient Attendance Officer Leona hanley Healthcare Proxy 06/09/2018 10:59 AM 09-19 * Full Code (Presumed) (Latest Code Status on File) Date Activated Date Inactivated Comments 06/16/2018 1:39 PM 06/18/2018 3:12 PM Healthcare Agents on File Name Relationship Healthcare Agent Relationship Communication Orlin Hahn Spouse .Primary Health Care Agent (Proxy form on file) Care Teams Nurse Sexual Assault Relationship Specialty Start Date End Date Chicho Hargrove MD [address] [place] [address] Drive [address] [place] [address] PCP - General Internal Medicine 08/08/25 Fallon Dillard MD [address] [place] [address] [email or web address] Referring Physician Hematology and Oncology 04/29/18 Additional Source Comments The information contained in this document represents components of the legal health record. It is not the complete legal health record.[facility]
--- OUTSIDE RECORDS SUMMARY | 2025-08-13 09:23 | XMS_ITS | Encounter Summary ---
Author Organization [facility] Address [address] [place] [address] Phone Care Team Providers Care Tv News Director Name Role Phone Regino Coleman MD Primary Care Provider Fallon Dillard MD Unavailable [phone] Jr Hogue MD Primary Care Provid er Chicho Hargrove MD Primary Care Provider [phone] Encounter Details Date Type Department Care Team (Late st Contact Info) Description 04/27/2019 Procedure Pass [facility] MR Imaging, Black [address] [place] [address] Social History Tobacco Use Types Packs/Day Years [...] Info) Description 09/04/2025 11:50 AM EST Telemedicine [facility] Urology 45 [facility]2-3 [place] [address] Ayaan Corrales MD [address] [place] [address] 11-3 [place] [address] [email or web address] documented as of this encounter Visit Diagnoses Not on filedocumented in this encounter Care Teams Tv News Director Relationship Specialty Start Date End Date Regino Coleman MD [address] [place] [address] PCP - General Internal Medicine 04/29/18 04/04/25 Jr Hogue MD [address] [place] [address] PCP - General Internal Medicine 04/05/25 08/07/25 Chicho Hargrove MD [address] [place] [address] PCP - General Internal Medicine 08/08/25 Fallon Dillard MD [address] [place] [address] [email or web address] Referring Physician Hematology and Oncology 04/29/18 documented as of this encounter Additional Source Comments The information contained in this document represents components of the legal health record. It is not the complete legal health record.[facility]
--- OUTSIDE RECORDS SUMMARY | 2025-08-13 09:23 | XMS_ITS | Encounter Summary ---
Author Organization [facility] Address [address] [place] [address] Phone Care Team Providers Care Radiology Orderly Name Role Phone Regino Coleman MD Primary Care Provider Fallon Dillard MD Unavailable [phone] Jr Hogue MD Primary Care Provid er Chicho Hargrove MD Primary Care Provider [phone] Encounter Details Date Type Department Care Team (Late st Contact Info) Description 01/05/2019 Procedure Pass [facility] MR Imaging, Black [address] [place] [address] Social History Tobacco Use Types Packs/Day Years [...] Info) Description 09/04/2025 11:50 AM EST Telemedicine [facility] Urology 45 [facility]2-3 [place] [address] Ayaan Corrales MD [address] [place] [address] 11-3 [place] [address] [email or web address] documented as of this encounter Visit Diagnoses Not on filedocumented in this encounter Care Teams Radiology Orderly Relationship Specialty Start Date End Date Regino Coleman MD [address] [place] [address] PCP - General Internal Medicine 04/29/18 04/04/25 Jr Hogue MD [address] [place] [address] PCP - General Internal Medicine 04/05/25 08/07/25 Chicho Hargrove MD [address] [place] [address] PCP - General Internal Medicine 08/08/25 Fallon Dillard MD [address] [place] [address] [email or web address] Referring Physician Hematology and Oncology 04/29/18 documented as of this encounter Additional Source Comments The information contained in this document represents components of the legal health record. It is not the complete legal health record.[facility]
--- OUTSIDE RECORDS SUMMARY | 2025-08-13 09:23 | XMS_ITS | Patient Health Record ---
Author Organization [facility] Address [address] [place] [address] Care Team Providers Care Adjunct Sociology Professor Name Role Phone DESHAUN OROURKE Primary Care Provider Amilcar Santiago [phone] Allergies No Known Allergies Results Component Value Reference Range Notes Pathology (Not yet reviewed by provider) Interpretation: Performing Lab:[facility], [address] [place] [phone] Notes/Report: Reason For Referral No Information Medications [...] Status Risk Notes Problem Irritable bowel syndrome (77765901) Irritable bowel syndrome (K58.9) Active confirmed Problem Screening for malignant neoplasm of colon (117248052) Encounter for screening for malignant neoplasm of colon (Z12.11) Active confirmed Problem Diarrhea (99059029) Diarrhea (R19.7) Active con firmed Problem Change in bowel habit (39227931) Change in bowel habits (R19.4) Active confirmed Problem Screening for malignant neoplasm of rectum (688589282) Encounter for screening for malignant neoplasm of rectum (Z12.12) Active confirmed Problem Blood in stool (561040370) Blood in stool (K92.1) Active confirmed Problem Gastroesophageal reflux disease without esophagitis (616273792) Gastroesophageal reflux disease without esophagitis (K21.9) Active confirmed Problem Gastroesophageal reflux disease (979087603) Gastroesophageal reflux disease, esophagitis presence not specified (K21.9) Active confirmed Problem Pancreatic cyst (63165014) 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) Active confirmed Problem Constipation (28713677) Constipation, unspecified constipation type (K59.00) Active confirmed Problem Left lower quadrant pain (252781716) Abdominal pain, left lower quadrant (R10.32) Active confirmed Problem Gastroesophageal reflux disease (475281811) GERD (gastroesophageal reflux disease) (K21.9) Active confirmed Problem Irritable bowel syndrome characterized by constipation (713758064) Irritable bowel syndrome with constipation (K58.1) Active confirmed Problem Irritable bowel syndrome (02077036) Irritable bowel syndrome with both constipation and diarrhea (K58.2) Active confirmed Problem Thrombocytosis (disorder) (0665748) Thrombocytosis, unspecified (D75.839) Active confirmed Problem Neoplasm of digestive system (645851270) IPMN (intraductal papillary mucinous neoplasm) (D49.0) Active confirmed Vital Signs Blood pressure diastolic 77 mm Hg 04/03/2025 Height 64 in 04/03/2025 Blood pressure systolic 111 mm Hg 04/03/2025 Weight 136 lbs 04/03/2025 BMI 23.34 kg/m2 04/03/2025 Procedures Procedure Date Ordered Date Performed Result Body Sit e UPPER GI ENDOSCOPY 04/03/2025 N/A COLONOSCOPY 04/03/2025 N/A Encounters Encounter Location Date Provider Diagnosis [facility] Outpatient [address] [place], [place] [id number] 07/04/2025 Amilcar Sosa [facility] [address] [facility] [address] [place] [phone] 09/28/2024 Amilcar Sosa Gastroesophageal ref lux disease, esophagitis presence not specified K21.9 ; Irritable bowel syndrome with constipation K58.1 ; Encounter for screening for malignant neoplasm of colon Z12.11 ; Constipation, unspecified constipation type K59.00 and Pancreatic cyst K86.2 [facility] [address] [place] [phone] 04/03/2025 Amilcar Sosa Change in bowel habi ts R19.4 ; Irritable bowel syndrome with both constipation and diarrhea K58.2 ; GERD (gastroesophageal reflux disease) K21.9 and IPMN (intraductal papillary mucinous neoplasm) D49.0 [facility] [address] [address] 09/28/2024 Amilcar Sosa [facility] [address] [place] [phone] 04/03/2025 Amilcar Sosa Assessments Encounter Date Diagnosis [...] will be having it done up at [facility] as it is ordered by her [facility] physicians in regard to the follow-up of [...] will be having it done up at [facility] as it is ordered by her [place] physicians in regard to the follow-up of [...] that was to occur. I did advise [facility] to contact me prior to the procedures [...] will be having it done up at [facility] as it is ordered by her [place] physicians in regard to the follow-up of [...] will be having it done up at [facility] as it is ordered by her [place] physicians in regard to the follow-up of [...] (ICD-10 - K86.2) Need MRI report from [facility] from 06/2024 Overall, Cordell appears [...] Ingrid Sosa , 09/27/2025 09:00:00 AM, [address] [facility], [address], [place], [address], Insurance Providers Payer Name Payer Address Payer Phone Subscriber Number Group Number Insured Name Patient Relationship to Insured Coverage Start Date Coverage End Date MEDICARE OF [place] [address] [place] [address] [id number] CORDELL ORDAZ Self - patient is the insured [employer] ([employer]) [address] [place] [id number] LENA Wright CORDELL Self - patient is the insured Medical (General) History Medical History History ICD Code Screening colonoscopy 05-24-2009--negativ e EGD 01-05-2002 and in 11/2016--small HH, n o esophagitis, no Hernandes's Asthma--presently asymptomatic 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 Dillard Mitral valve prolapse Lyme's disease/Fibromyalgia--Amitryptile ne and Gabapentin Migraines-on Propranolol Hyperlipidemia Arthritis in left foot--Meloxicam/Cortis one injections Denies NH,DM,CVA,renal disease Renal cancer with surgery in 06/2018 [...] 11/18/2022 [facility] Corrales 06/2018 Uterine polyps Breast biopsy -2013--breast-left--LCIS Left ovary removed and appy Broken ankle/beau and screws right Cyst removed both breasts Tonsillectomy
--- OUTSIDE RECORDS SUMMARY | 2025-08-13 09:23 | XMS_ITS | Encounter Summary ---
Author Organization [facility] Address [address] [place] [address] Phone Care Team Providers Care Mental Health Aides Teacher Name Role Phone Regino Coleman MD Primary Care Provider Fallon Dillard MD Unavailable [phone] Jr Hogue MD Primary Care Provid er Chicho Hargrove MD Primary Care Provider [phone] Encounter Details Date Type Department Care Team (Late st Contact Info) Description 06/15/2019 Procedure Pass [facility] MR Imaging, [place] [address] [place] [address] Social History Tobacco Use Types Packs/Day Years [...] Info) Description 09/04/2025 11:50 AM EST Telemedicine [facility] Urology 45 [facility]2-3 [place] [address] Ayaan Corrales MD [address] [place] [address] 11-3 [place] [address] [email or web address] documented as of this encounter Visit Diagnoses Not on filedocumented in this encounter Care Teams Mental Health Aides Teacher Relationship Specialty Start Date End Date Regino Coleman MD [address] [place] [address] PCP - General Internal Medicine 04/29/18 04/04/25 Jr Hogue MD [address] [place] [address] PCP - General Internal Medicine 04/05/25 08/07/25 Chicho Hargrove MD [address] [place] [address] PCP - General Internal Medicine 08/08/25 Fallon Dillard MD [address] [place] [address] [email or web address] Referring Physician Hematology and Oncology 04/29/18 documented as of this encounter Additional Source Comments The information contained in this document represents components of the legal health record. It is not the complete legal health record.[facility]
--- OUTSIDE RECORDS SUMMARY | 2025-08-13 09:23 | XMS_ITS | Encounter Summary ---
Author Organization [facility] Address [address] [place] [address] Phone Care Team Providers Care Nuclear Plant Construction Worker Name Role Phone Regino Coleman MD Primary Care Provider Fallon Dillard MD Unavailable [phone] Jr Hogue MD Primary Care Provid er Chicho Hargrove MD Primary Care Provider Encounter Details Date Type Department Care Team (Late st Contact Info) Description 06/10/2021 Ancillary Orders [facility],Outside Imaging [address] [place] [address] System, Provider Not In, [facility] Partners [address] [address] Social History Tobacco Use Types Packs/Day Years [...] Info) Description 09/04/2025 11:50 AM EST Telemedicine [facility] Urology 45 [facility] ASB2-3 [place] [address] Ayaan Corrales MD [address] [place] [address], [facility] 11-[address] [place] [address] [email or web address] documented as of this encounter Results * XR Chest Outside (No Interpretation) (05/23/2020 12:00 AM EDT) Narrative SYSTEMGENERATED, DOCUMENTATION - 06/10/2021 7:18 AM EDT This study is for PACS storage only and not for interpretation. us Provider Not In System PhD IMG OUTSIDE IMAGING W /OUT INTERPRETATION Final Result documented in this encounter Visit Diagnoses Not on filedocumented in this encounter Care Teams Nuclear Plant Construction Worker Relationship Specialty Start Date End Date Regino Coleman MD [address] [place] [address] PCP - General Internal Medicine 04/29/18 04/04/25 Jr Hogue MD [address] [place] [address] PCP - General Internal Medicine 04/05/25 08/07/25 Chicho Hargrove MD [address] [place] [address] PCP - General Internal Medicine 08/08/25 Fallon Dillard MD [address] [place] [address] [email or web address] Referring Physician Hematology and Oncology 04/29/18 documented as of this encounter Additional Source Comments The information contained in this document represents components of the legal health record. It is not the complete legal health record.[facility]
--- OUTSIDE RECORDS SUMMARY | 2025-08-13 09:23 | XMS_ITS | Encounter Summary ---
Author Organization [facility] Address [address] [place] [address] Phone Care Team Providers Care Casting Machine Set Up Operator Name Role Phone Regino Coleman MD Primary Care Provider Fallon Dillard MD Unavailable [phone] Jr Hogue MD Primary Care Provid er Chicho Hargrove MD Primary Care Provider [phone] Encounter Details Date Type Department Care Team (Late st Contact Info) Description 07/02/2020 Procedure Pass [facility], [address] [address] Social History Tobacco Use Types Packs/Day Years [...] Description 09/04/2025 11:[address] [facility] Urology [address] [place], [place] 351362-3 [place] [address] Ayaan Corrales MD [address] [place] [address] 11-3 [place] [address] [email or web address] documented as of this encounter Visit Diagnoses Not on filedocumented in this encounter Care Teams Casting Machine Set Up Operator Relationship Specialty Start Date End Date Regino Coleman MD [address] [place] [address] PCP - General Internal Medicine 04/29/18 04/04/25 Jr Hogue MD [address] [place] [address] PCP - General Internal Medicine 04/05/25 08/07/25 Chicho Hargrove MD [address] [place] [address] PCP - General Internal Medicine 08/08/25 Fallon Dillard MD [address] [place] [address] Vouch Referring Physician Hematology and Oncology 04/29/18 documented as of this encounter Additional Source Comments The information contained in this document represents components of the legal health record. It is not the complete legal health record.[facility]
--- OUTSIDE RECORDS SUMMARY | 2025-08-13 09:24 | XMS_ITS | Encounter Summary ---
Author Organization [facility] Address [address] [place] [address] Phone Care Team Providers Care Outside Sales Representative Insurance Name Role Phone Regino Coleman MD Primary Care Provider Fallon Dillard MD Unavailable [phone] Jr Hogue MD Primary Care Provid er Chicho Hargrove MD Primary Care Provider [phone] Encounter Details Date Type Department Care Team (Late st Contact Info) Description 06/23/2018 Procedure Pass [facility] [address] [id number] Social History Tobacco Use Types Packs/Day Years [...] Info) Description 09/04/2025 11:50 AM EST Telemedicine [facility] Urology 45 [facility]2-3 [place] [address] Ayaan Corrales MD [address] [place] [address] 11-3 [place] [address] [email or web address] documented as of this encounter Visit Diagnoses Not on filedocumented in this encounter Care Teams Outside Sales Representative Insurance Relationship Specialty Start Date End Date Regino Coleman MD [address] [place] [address] PCP - General Internal Medicine 04/29/18 04/04/25 Jr Hogue MD [address] [place] [address] PCP - General Internal Medicine 04/05/25 08/07/25 Chicho Hargrove MD [address] [place] [address] PCP - General Internal Medicine 08/08/25 Fallon Dillard MD [address] [place] [address] [email or web address] Referring Physician Hematology and Oncology 04/29/18 documented as of this encounter Additional Source Comments The information contained in this document represents components of the legal health record. It is not the complete legal health record.[facility]
--- OUTSIDE RECORDS SUMMARY | 2025-08-13 09:24 | XMS_ITS | Encounter Summary ---
Author Organization [facility] Address [address] [place] [address] Phone Care Team Providers Care Hand Folder Name Role Phone Regino Coleman MD Primary Care Provider Fallon Dillard MD Unavailable [phone] Jr Hogue MD Primary Care Provid er Chicho Hargrove MD Primary Care Provider [phone] Encounter Details Date Type Department Care Team (Late st Contact Info) Description 07/07/2022 Procedure Pass [facility], [address] [address] Social History Tobacco Use Types Packs/Day Years [...] Info) Description 09/04/2025 11:50 AM EST Telemedicine [facility] Urology [address] [place], [place] [address]472-3 [place] [address] Ayaan Corrales MD [address] [place] [address] 11-3 [place] [address] [email or web address] documented as of this encounter Visit Diagnoses Not on filedocumented in this encounter Care Teams Hand Folder Relationship Specialty Start Date End Date Regino Coleman MD [address] [place] [address] PCP - General Internal Medicine 04/29/18 04/04/25 Jr Hogue MD [address] [address] PCP - General Internal Medicine 04/05/25 08/07/25 Chicho Hargrove MD [address] [place] [address] PCP - General Internal Medicine 08/08/25 Fallon Dillard MD [address] [place] [address] [email or web address] Referring Physician Hematology and Oncology 04/29/18 documented as of this encounter Additional Source Comments The information contained in this document represents components of the legal health record. It is not the complete legal health record.[facility]
--- OUTSIDE RECORDS SUMMARY | 2025-08-13 09:24 | XMS_ITS | Encounter Summary ---
Author Organization [facility] Address [address] [place] [address] Phone Care Team Providers Care Center Customer Service Associate Name Role Phone Regino Coleman MD Primary Care Provider Fallon Dillard MD Unavailable [phone] Jr Hogue MD Primary Care Provid er Chicho Hargrove MD Primary Care Provider [phone] Encounter Details Date Type Department Care Team (Late st Contact Info) Description 09/29/2018 Procedure Pass [facility] MR Imaging, Black [address] [place] [address] Social History Tobacco Use Types Packs/Day Years [...] Info) Description 09/04/2025 11:50 AM EST Telemedicine [facility] Urology 45 [facility]2-3 [place] [address] Ayaan Corrales MD [address] [place] [address] 11-3 [place] [address] [email or web address] documented as of this encounter Visit Diagnoses Not on filedocumented in this encounter Care Teams Center Customer Service Associate Relationship Specialty Start Date End Date Regino Coleman MD [address] [place] [address] PCP - General Internal Medicine 04/29/18 04/04/25 Jr Hogue MD [address] [place] [address] PCP - General Internal Medicine 04/05/25 08/07/25 Chicho Hargrove MD [address] [place] [address] PCP - General Internal Medicine 08/08/25 Fallon Dillard MD [address] [place] [address] [email or web address] Referring Physician Hematology and Oncology 04/29/18 documented as of this encounter Additional Source Comments The information contained in this document represents components of the legal health record. It is not the complete legal health record.[facility]
--- OUTSIDE RECORDS SUMMARY | 2025-08-13 09:24 | XMS_ITS | Patient Health Record ---
Author Organization [facility] Address [address] [place] [address] Care Team Providers Care Powerhouse Electrician Apprentice Name Role Phone Jr Hogue Primary Care Provider [phone] Black, Aye Unavailable [phone] Allergies Allergen (clinical drug ingredient) Drug/Non Drug [...] primary osteoarthritis of the ankle and/or foot (121821372) Primary osteoarthrit is, left ankle and foot (M19.072) Active confirmed Vital Signs Blood pressure diastolic 75 mm Hg 05/24/2025 Height 5ft3in in 05/24/2025 Blood pressure systolic 121 mm Hg 05/24/2025 Weight 136 lbs 05/24/2025 BMI 24.09 kg/m2 05/24/2025 Procedures Procedure Date Ordered Date Performed Result Body Sit e , M9051-NTPZJ/INJECT, JOINT/BURSA 08/17/2024 N/A , F3550-BSWES/INJECT, JOINT/BURSA 05/24/2025 N/A Encounters Encounter Location Date Provider Diagnosis [facility] [address] [place] [address] 08/17/2024 Aye Black Primary osteoarthrit is, left ankle and foot M19.072 ; Joint pain M25.50 ; Neuralgia and neuritis, unspecified M79.2 ; Hypertrophy of bone, 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 and Pain in left foot M79.[address] [address] 02/12/2025 Aye Bliss Primary osteoarthrit is, left [...] Other hammer toe(s) (acquired), right foot M20.[address] [address] 05/24/2025 Aye Bliss Primary osteoarthrit is, left ankle and foot M19.072 ; Joint pain M25.50 ; Neuralgia and neuritis, unspecified M79.2 and Hypertrophy of bone, 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 [facility] [address] [address] 12/11/2024 Aye Bliss [address] [address] 02/12/2025 Aye Bliss Assessments Encounter Date Diagnosis [...] X ray : Foot, right 3V 04/24/2013 13804-Kkck Destruction, 1-14 02/08/2023 95715-Tukb Destruction, 1-12/08/2021, T5509-XSVKZ/INJECT, JOINT/BURSA 0 04/06/2022 10249, I9213-FEAMG/INJECT, JOINT/BURSA 1 00, H9318-NQSLS/INJECT, JOINT/BURSA 0 02/08/2023, E8768-JGSBZ/INJECT, JOINT/BURSA 1 11/02/201988635, T1263-BXGEP/INJECT, JOINT/BURSA 0 01/02/2021 37950, T1407-KNTHI/INJECT, JOINT/BURSA 0 05/05/2021 86328, C4786-FEZYR/INJECT, JOINT/BURSA 1 74018, C7352-CNKEE/INJECT, JOINT/BURSA 0 12/08/2021 22354, I7204-TLZIE/INJECT, JOINT/BURSA 0 04/08/2016 72385, F4116-RPPYH/INJECT, JOINT/BURSA 0 11/02/2016 88679, C7417-TDQLN/INJECT, JOINT/BURSA 0 01/26/2017 22750, M8048-STZFX/INJECT, JOINT/BURSA 1 11/24/201671543, H2868-TOBUI/INJECT, JOINT/BURSA 0 12/10/2017 97520, M8081-NAXIY/INJECT, JOINT/BURSA 0 03/14/201855377, O4578-SMCLW/INJECT, JOINT/BURSA 1 10/29/201790775, Z8475-ZUQPJ/INJECT, JOINT/BURSA 0 12/19/2018 82964, A4663-ZPPHV/INJECT, JOINT/BURSA 0 04/20/2019, N3367-MQRQN/INJECT, JOINT/BURSA 1 10/24/201850404, Q4098-WXMVN/INJECT, JOINT/BURSA 0 01/01/202077369, U2065-XOXCH/INJECT, JOINT/BURSA 0 06/21/2023 11197, K1551-HKXHI/INJECT, JOINT/BURSA 0 11/01/202311184, B7406-HXWWS/INJECT, JOINT/BURSA 0 02/28/202468221, C9597-YFTSD/INJECT, JOINT/BURSA 1 10/17/2023 43640, V6145-FEJIE/INJECT, JOINT/BURSA 0 05/24/202522692,I0273-HCB TENDON SHEATH/LIGAMENT 0 05/02/2020 Next Appt Details Provider Name:Aye Miranda Izaiah , 08/27/2025 08:15:00 AM, [address] [place] [address], [place], [address], Insurance Providers Payer Name Payer Address Payer Phone Subscriber Number Group Number Insured Name Patient Relationship to Insured Coverage Start Date Coverage End Date Medicare National Govt [facility] [address] [place] [address] [id number] Rebekah Suh Self - patient is the insured [employer] ([employer]) [address] [place] [address] [id number] Rebekah Suh Self - patient is [...]
== END 2025-08-13 09:17 | disposition home or self-care (01) ==
LOC: HO.HMCHD 08:47
PROVIDERS: PCP Internal Medicine; Visit Provider Student in an Organized Health Care Education/Training Program
DX: J06.9 Acute upper respiratory infection, unspecified (principal); Z90.5 Acquired absence of kidney; M19.90 Unspecified osteoarthritis, unspecified site; G43.009 Migraine without aura, not intractable, without status migrainosus; R10.9 Unspecified abdominal pain

== ENCOUNTER → 2025-08-13 09:23 | Outpatient (BNV) | payer MEDICARE, OTHER, SELFPAY | PROVIDERS: PCP Internal Medicine; Visit Provider Radiology Diagnostic Radiology | DX: J06.9 Acute upper respiratory infection, unspecified (principal) | CPT/HCPCS: 71046 ==

== ENCOUNTER 2025-08-21 13:45 | Outpatient (REF) | payer SELFPAY ==
--- OUTSIDE RECORDS SUMMARY | 2024-07-03 04:15 | XMS_ITS ---
Author Organization [facility] Address [address] [place] [address] Care Team Providers Care Business Planning Analyst Name Role Phone Jr Hogue Primary Care Provider Aye Bliss [phone] Encounters Encounter Location Date Provider Diagnosis [address] [address] 07/03/2024 Aye Bliss Plan Of Treatment Next Appt Details Provider Name:Aye A Izaiah , 08/27/2025 08:15:00 AM, [address] [place] [address], [phone], Progress Notes * Alexander HAHNeDOB: [birth year] (69 yo F)Acc No.[id number]:07/03/2024 Progress Note Patient: Rebekah POLO Provider: Alicja Bliss DPM :1955 A ge:68 Y S ex:Female Date:07/03/2024 Address:[address] [place] [address] [place], [id number] Pcp:Jr Hogue Subjective: * Chief Complaints: * [...] 0 07/03/2024 Generated for Chandler Curtis on: 10/21/2024 03:21 PM EST
--- OUTSIDE RECORDS SUMMARY | 2024-12-11 03:15 | XMS_ITS ---
Author Organization [facility] Address [address] [place] [address] Care Team Providers Care Air Brake Rigger Name Role Phone Lennie, Kartik Primary Care Provider [phone] Black, Aye Unavailable [phone] Allergies Allergen (clinical drug ingredient) Drug/Non Drug [...] Negative Encounters Encounter Location Date Provider Diagnosis [facility] [place] [address] [place] [address] 12/11/2024 Aye Bliss Plan Of Treatment Next Appt Details Provider Name:Aye Bliss , 08/27/2025 08:15:00 AM, [address] [place], [address], Progress Notes * Ashvin HAHNOB: [birth year] (69 yo F)Acc No.[id number]:12/11/2024 Progress Note Patient: Rebekah POLO Provider: Alicja Bliss DPM :1955 A ge:69 Y S ex:Female Date:12/11/2024 Address:[address] [place] [phone] Pcp:Jr Hogue Subjective: * Chief Complaints: * [...] denies.? C ardiovascular: Pacemaker d enies. M RF TECHNICIAN a dmits. W PW d enies. C [...] eakness d enies. P odiatric: Comments S [facility] for comments. I nteg.: Marques d [...] 0 12/11/2024 Generated for Chandler bentley/Brennon/Nirav on: 10/21/2024 03:20 PM EST
--- OUTSIDE RECORDS SUMMARY | 2025-07-04 03:30 | XMS_ITS ---
Author Organization [facility] Address [address] [place] [address] Care Team Providers Care Youth Accommodation Support Worker Name Role Phone DESHAUN OROURKE Primary Care Provider Amilcar Santiago [phone] REASON FOR VISIT gerd,IBS,change in bowel habits Encounters Encounter Location Date Provider Diagnosis [facility] [place] Outpatient [address] [place] [id number] 07/04/2025 Amilcar Sosa Plan Of Treatment Next Appt Details Provider Name:Amilcar Sosa , 09/27/2025 09:00:00 AM, [address] [facility], [address], [place], [address], Progress Notes * CORDELL COVARRUBIAS EDOB:[birth year] (69 yo F)Acc No.[id number]:07/04/2025 EGD and COL/MAC Patient: Kimberly JIMY CORDELL Mcnair Provider: Gary Sosa MD :1955 A ge:69 Y S ex:Female Date:07/04/2025 Address:[address] [id number] Pcp:DESHAUN OROURKE Subjective: * Chief Complaints: * [...] 0 07/04/2025 Generated for Chandler bentley/Brennon/Nirav on: 10/21/2024 03:21 PM EST
--- OUTSIDE RECORDS SUMMARY | 2025-08-21 15:20 | XMS_ITS | Encounter Summary ---
Author Organization [facility] Address [address] [place] [address] Phone Care Team Providers Care Busperson Name Role Phone Regino Coleman MD Primary Care Provider Fallon Dillard MD Unavailable [phone] Jr Hogue MD Primary Care Provid er Chicho Hargrove MD Primary Care Provider [phone] Encounter Details Date Type Department Care Team (Late st Contact Info) Description 05/11/2022 Procedure Pass [facility], [address] [address] Social History Tobacco Use Types Packs/Day Years [...] Info) Description 09/04/2025 11:50 AM EST Telemedicine [facility] Urology [address] [place], [place] [address]0312-3 [place] [address] Ayaan Corrales MD [address] [place] [address] 11-3 [place] [address] [email or web address] documented as of this encounter Visit Diagnoses Not on filedocumented in this encounter Care Teams Busperson Relationship Specialty Start Date End Date Regino Coleman MD [address] [place] [address] PCP - General Internal Medicine 04/29/18 04/04/25 Jr Hogue MD [address] [address] PCP - General Internal Medicine 04/05/25 08/07/25 Chicho Hargrove MD [address] [place] [address] PCP - General Internal Medicine 08/08/25 Fallon Dillard MD [address] [place] [address] [email or web address] Referring Physician Hematology and Oncology 04/29/18 documented as of this encounter Additional Source Comments The information contained in this document represents components of the legal health record. It is not the complete legal health record.[facility]
--- OUTSIDE RECORDS SUMMARY | 2025-08-21 15:20 | XMS_ITS | Encounter Summary ---
Author Organization [facility] Address [address] [place] [address] Phone Care Team Providers Care Mohs Surgeon/General Dermatologist Name Role Phone Regino Coleman MD Primary Care Provider Fallon Dillard MD Unavailable [phone] Jr Hogue MD Primary Care Provid er Chicho Hargrove MD Primary Care Provider Encounter Details Date Type Department Care Team (Late st Contact Info) Description 05/24/2018 Procedure Pass [facility] OUTSIDE IM[facility] [address] [place] [address] Social History Tobacco Use Types Packs/Day Years [...] Info) Description 09/04/2025 11:50 AM EST Telemedicine [facility] Urology [address] [place], [place] 046452-3 [place] [address] Ayaan Corrales MD [address] [place] [address] 11-3 [place] [address] [email or web address] documented as of this encounter Visit Diagnoses Not on filedocumented in this encounter Care Teams Mohs Surgeon/General Dermatologist Relationship Specialty Start Date End Date Regino Coleman MD [address] [place] [address] PCP - General Internal Medicine 04/29/18 04/04/25 Jr Hogue MD [address] [place] [address] PCP - General Internal Medicine 04/05/25 08/07/25 Chicho Hargrove MD [address] [place] [address] PCP - General Internal Medicine 08/08/25 Fallon Dillard MD [address] [place] [address] [email or web address] Referring Physician Hematology and Oncology 04/29/18 documented as of this encounter Additional Source Comments The information contained in this document represents components of the legal health record. It is not the complete legal health record.[facility]
--- OUTSIDE RECORDS SUMMARY | 2025-08-21 15:20 | XMS_ITS | Encounter Summary ---
Author Organization [facility] Address [address] [place] [address] Phone Care Team Providers Care Orthopedic Dentist Name Role Phone Regino Coleman MD Primary Care Provider Fallon Dillard MD Unavailable [phone] Jr Hogue MD Primary Care Provid er Chicho Hargrove MD Primary Care Provider [phone] Encounter Details Date Type Department Care Team (Late st Contact Info) Description 08/15/2024 Procedure Pass [address] [place] [address] Social History Tobacco Use Types Packs/Day Years [...] 09/04/2025 11:50 AM EST Telemedicine [facility] Urology 45 [facility]2-3 [place] [address] Ayaan Corrales MD 45 [facility] 11-[address] [place] [address] [email or web address] documented as of this encounter Visit Diagnoses Not on filedocumented in this encounter Care Teams Orthopedic Dentist Relationship Specialty Start Date End Date Regino Coleman MD [address] [place] [address] PCP - General Internal Medicine 04/29/18 04/04/25 Jr Hogue MD [address] [place] [address] PCP - General Internal Medicine 04/05/25 08/07/25 Chicho Hargrove MD [address] [place] [address] PCP - General Internal Medicine 08/08/25 Fallon Dillard MD [address] [place] [address] [email or web address] Referring Physician Hematology and Oncology 04/29/18 documented as of this encounter Additional Source Comments The information contained in this document represents components of the legal health record. It is not the complete legal health record.[facility]
--- OUTSIDE RECORDS SUMMARY | 2025-08-21 15:20 | XMS_ITS | Encounter Summary ---
Author Organization [facility] Address [address] [place] [address] Phone Care Team Providers Care Ferryboat Operator Name Role Phone Regino Coleman MD Primary Care Provider Fallon Dillard MD Unavailable [phone] Jr Hogue MD Primary Care Provid er Chicho Hargrove MD Primary Care Provider [phone] Encounter Details Date Type Department Care Team (Late st Contact Info) Description 07/02/2020 Procedure Pass [facility], [address] [address] Social History Tobacco Use Types Packs/Day Years [...] Info) Description 09/04/2025 11:50 AM EST Telemedicine [facility] Urology [address] [place], [place] [address]-3 [place] [address] Ayaan Corrales MD [address] [place] [address] 11-3 [place] [address] [email or web address] documented as of this encounter Visit Diagnoses Not on filedocumented in this encounter Care Teams Ferryboat Operator Relationship Specialty Start Date End Date Regino Coleman MD [address] [place] [address] PCP - General Internal Medicine 04/29/18 04/04/25 Jr Hogue MD [address] [place] [address] PCP - General Internal Medicine 04/05/25 08/07/25 Chicho Hargrove MD [address] [place] [address] PCP - General Internal Medicine 08/08/25 Fallon Dillard MD [address] [place] [address] [email or web address] Referring Physician Hematology and Oncology 04/29/18 documented as of this encounter Additional Source Comments The information contained in this document represents components of the legal health record. It is not the complete legal health record.[facility]
--- OUTSIDE RECORDS SUMMARY | 2025-08-21 15:20 | XMS_ITS | Clinical Summary ---
Author Organization [facility] Address [address] [place] [address] Phone Care Team Providers Care Bending Roll Hand Name Role Phone Fallon Dillard MD Unavailable [phone] Chicho Hargrove MD Primary Care Provider Allergies Active Allergy [...] with hand surgeon Dr. Mary Boss in [place] Regular use of meloxicam previously effective, but [...] Plan (07/01/2021 9:51 AM EDT): Assessment: Rebekah Hhan is a 64 y.o. 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 Assessment & Plan [...] initially though review of the pathology by [facility], Department of Pathology suggests [...] - 08/08/2025 11:59 PM EDT Hospital Encounter [facility], X-Ray - [address] [place] [address] Ayaan Corrales MD Discharge Disposition: Home or Self Care 08/08/2025 9:34 AM EDT - 08/08/2025 11:59 PM EDT Hospital Encounter [facility], [address] [place], [place] [address] Ayaan Corrales MD Discharge Disposition: Home or Self Care 08/07/2025 1:54 PM EDT - 08/07/2025 11:59 PM EDT Hospital Encounter [facility] [address] [place] [address] Ayaan Corrales MD Discharge Disposition: Home or Self Care 08/15/2024 Procedure Pass [address] [place], [place] [address] from Last 3 Months Immunizations Immunization Administration [...] Info) Description 09/04/2025 11:50 AM EST Telemedicine [facility] Urology [address] [place], [place] [id number] [place] [address] Ayaan Corrales MD [address] [place] [address] 113 [place] [address] [email or web address] Health Maintenance Due Date Last Done [...] on patient's age to complete this topic IPV VACCINES Aged Out No longer eligi ble based on patient's age to complete this topic MENINGOCOCCAL VACCINES (ACWY) Aged Out No longer eligible based on patient's age to complete this topic MENINGOCOCCAL VACCINES (B) Aged Out N o longer eligible based on patient's age to complete this topic Medical Devices Not on file Procedures Procedure Name Priority Date/Time Associated Diagnosis Comments MRI ABDOMEN (KIDNEYS) WITH AND WITHOUT CONTRAST Routine 08/08/2025 1:02 PM EDT Personal history of kidney cancer XR CHEST PA AND LATERAL 2 VIEWS Routine 08/08/2025 11:11 AM EDT Personal history of kidney cancer BASIC METABOLIC PANEL (BMP) Routine 08/07/2025 2:18 PM EDT Personal history of kidney cancer from Last 3 Months Results * MRI ABDOMEN (KIDNEYS) WITH AND WITHOUT CONTRAST (08/08/2025 1:02 PM EDT) Anatomical Region Laterality Modality Abdomen Magnetic Resonan ce 08/15/2025 12:0 7 PM EST Impressions 08/15/2025 12:25 PM EST 1. No evidence of local recurrence or abdominal metastases. 2. 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 Attention to follow up is recommended. Narrative 08/15/2025 12:25 PM EST MRI ABDOMEN (KIDNEYS) WITH AND WITHOUT CONTRAST Referring clinician's provided indication for this examination in Epic: renal cell carcinoma; History of kidney cancer TECHNIQUE: Multiplanar MR imaging of the abdomen was performed using T1, T2, fat saturated, and diffusion weighted techniques. Dynamic multiphase imaging was also performed after administration of an intravenous gadolinium contrast agent. COMPARISON: MRI ABDOMEN (KIDNEYS) WITH AND WITHOUT CONTRAST FINDINGS: Lower Chest: Normal. No effusions. Liver: Unchanged segment 3 hemangioma measuring 10 mm Biliary: Gallbladder sludge. Cholelithiasis. No biliary ductal dilatation. Spleen: Normal. No splenomegaly or focal lesions. Pancreas: 7 mm cystic focus in the uncinate process (4:19).. No masses or ductal dilatation. Adrenal Glands: Normal. No nodules. Kidneys/Ureters: Prior left nephrectomy. Punctate T1 hyperintense foci in the right kidney, are too small to characterize, but probably representing postsurgical/hemorrhagic cyst. No solid masses or hydronephrosis on the right. No evidence of local recurrence. Bowel: Moderate hiatal hernia. No dilatation or wall thickening. Peritoneum/Retroperitoneum: Normal. No masses or fluid. Lymph Nodes: Normal. No lymphadenopathy. Vessels: Normal. No abdominal aortic aneurysm. Bones/Soft Tissues: Tiny fat-containing umbilical hernia. No focal marrow replacing lesions. Procedure Note Rolo Bender MD, MPH - 08/15/2025 MRI ABDOMEN (KIDNEYS) WITH AND WITHOUT CONTRAST Referring clinician's provided indication for this examination in Epic:renal cell carcinoma; History of kidney cancer TECHNIQUE: Multiplanar MR imaging of the abdomen was performed using T1,T2, fat saturated, and diffusion weighted techniques. Dynamic multiphaseimaging was also performed after administration of an intravenousgadolinium contrast agent. COMPARISON: MRI ABDOMEN (KIDNEYS) WITH AND WITHOUT CONTRAST FINDINGS: Lower Chest: Normal. No effusions. Liver: Unchanged segment 3 hemangioma measuring 10 mm Biliary: Gallbladder sludge. Cholelithiasis. No biliary ductaldilatation. Spleen: Normal. No splenomegaly or focal lesions. Pancreas: 7 mm cystic focus in the uncinate process (4:19).. No masses orductal dilatation. Adrenal Glands: Normal. No nodules. Kidneys/Ureters: Prior left nephrectomy. Punctate T1 hyperintense foci inthe right kidney, are too small to characterize, but probably representingpostsurgical/hemorrhagic cyst. No solid masses or hydronephrosis on theright. No evidence of local recurrence. Bowel: Moderate hiatal hernia. No dilatation or wall thickening. Peritoneum/Retroperitoneum: Normal. No masses or fluid. Lymph Nodes: Normal. No lymphadenopathy. Vessels: Normal. No abdominal aortic aneurysm. Bones/Soft Tissues: Tiny fat-containing umbilical hernia. No focal marrowreplacing lesions. IMPRESSION: 1. No evidence of local recurrence or abdominal metastases. 2. 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 Attention to follow up is recommended. Ayaan Corrales MD IM MR ABDOMEN Final Result * XR CHEST PA AND LATERAL 2 VIEWS (08/08/2025 11:11 AM EDT) Anatomical Region Laterality Modality Chest Computed Radiogr aphy 08/08/2025 12:0 5 PM EDT Impressions 08/08/2025 12:06 PM EDT No acute findings. Narrative 08/08/2025 12:06 PM EDT XR CHEST PA AND LATERAL 2 VIEWS Referring clinician's provided indication for this examination in [facility]: Urologic cancer, surveillance; History of kidney cancer [...] clinician's provided indication for this examination in [facility]:Urologic cancer, surveillance; History of kidney cancer COMPARISON: XR CHEST PA AND LATERAL 2 VIEWS FINDINGS: Devices/Tubes/Lines: None. Lungs: The lungs are clear. No focal consolidation or pulmonary edema. Pleura: No pleural effusion or pneumothorax. Heart/Mediastinum: Cardiac silhouette and mediastinal contours are withinnormal limits. Bones/Soft Tissues: No acute osseous finding. Partially visualized upper abdomen: Unremarkable. IMPRESSION: No acute findings. Ayaan Corrales MD [facility] XR CHEST Final Result * (ABNORMAL) Basic metabolic panel (08/07/2025 2:18 PM EDT) SODIUM 139 133 - 146 mmol/L [facility] CHLORIDE 103 96 - 108 mmol/L [facility] POTASSIUM 4.5 3.3 - 5.1 mmol/L [facility] CO2 23 21 - 35 mmol/L [facility] BUN 10 6 - 19 mg/dL [facility] CREATININE 1.00 0.5 - 1.5 mg/dL [facility] GLUCOSE 130(H) 70 - 99 mg/dL [facility] CALCIUM 9.7 8.4 - 10.3 mg/dL [facility] EGFR 61 >59 mL/min/1.7 3m2 [facility] Comment:Estimated glomerular filtration rate calculated using the CKD-EPI refit equation. ANION GAP 18 10 - 20 mmol/L [facility] Blood 08/07/2025 2:18 PM EDT 08/07/2025 2:21 PM EDT us Ayaan Corrales MD LAB BLOOD BKR ORDERABLES Final Result [facility] [address] [place] [address] from Last 3 Months Insurance MEDIC[place] PART A & [place] [id number] [facility] MEDICARE SUPPLEMENT MEDICARE PART A & B [employer] MEDICARE SUPPLEMENT MEDICARE PART A & B [employer] MEDICARE SUPPLEMENT MEDICARE PART A & B [facility] MEDICARE SUPPLEMENT MEDICARE PART A & [place] [address] [place] [address] MEDICARE SUPPLEMENT MEDICARE PART A & B Member Subscriber Plan / Payer (Ef fective 2019-Present) Name:Rebekah Hahn Member ID:[id number] Relation to Subscriber:Self Name:Rebekah Hahn Subscriber ID:[id number] Payer ID:[id number] Group ID:Not on file Type:Medicare Address: [employer] [facility] [address] MEDICARE SUPPLEMENT MEDICARE PART A & B [employer] MEDICARE SUPPLEMENT MEDICARE PART A & B [employer] MEDICARE SUPPLEMENT MEDICARE PART A & B [facility] MEDICARE SUPPLEMENT Advance Directives For more information, please contact: [phone] (9AM - 5PM [facility], Wednesday-Wednesday) Documents on File Type Date Recorded Patient Compilation Clerk Expl anation Healthcare Proxy 06/09/2018 10:59 AM 09-19 * Full Code (Presumed) (Latest Code Status on File) Date Activated Date Inactivated Comments 06/16/2018 1:39 PM 06/18/2018 3:12 PM Healthcare Agents on File Name Relationship Healthcare Agent Relationship Communication Orlin Hahn Spouse .Primary Health Care Agent (Proxy form on file) Care Teams Bending Roll Hand Relationship Specialty Start Date End Date Chicho Hargrove MD [address] [place] [address] PCP - General Internal Medicine 08/08/25 Fallon Dillard MD [address] [place] [address] [email or web address] Referring Physician Hematology and Oncology 04/29/18 Additional Source Comments The information contained in this document represents components of the legal health record. It is not the complete legal health record.[facility]
--- OUTSIDE RECORDS SUMMARY | 2025-08-21 15:20 | XMS_ITS | Encounter Summary ---
Author Organization [facility] Address [address] [place] [address] Phone Care Team Providers Care Freight Solicitor Name Role Phone Regino Coleman MD Primary Care Provider Fallon Dillard MD Unavailable [phone] Jr Hogue MD Primary Care Provid er Chicho Hargrove MD Primary Care Provider [phone] Encounter Details Date Type Department Care Team (Late st Contact Info) Description 06/16/2018 Procedure Pass [facility] Periop [address] [place] [address] Social History Tobacco Use Types Packs/Day Years [...] Info) Description 09/04/2025 11:50 AM EST Telemedicine [facility] Urology [address] [facility] [place] [place] [address] Ayaan Corrales MD [address] [place] [address] 11-3 [place] [address] [email or web address] documented as of this encounter Visit Diagnoses Not on filedocumented in this encounter Care Teams Freight Solicitor Relationship Specialty Start Date End Date Regino Coleman MD [address] [place] [address] PCP - General Internal Medicine 04/29/18 04/04/25 Jr Hogue MD [address] [place] [address] PCP - General Internal Medicine 04/05/25 08/07/25 Chicho Hargrove MD [address] [place] [address] PCP - General Internal Medicine 08/08/25 Fallon Dillard MD [address] [place] [address] [email or web address] Referring Physician Hematology and Oncology 04/29/18 documented as of this encounter Additional Source Comments The information contained in this document represents components of the legal health record. It is not the complete legal health record.[facility]
--- OUTSIDE RECORDS SUMMARY | 2025-08-21 15:21 | XMS_ITS | Encounter Summary ---
Author Organization [facility] Address [address] [place] [address] Phone Care Team Providers Care Keg Varnisher Name Role Phone Regino Coleman MD Primary Care Provider Fallon Dillard MD Unavailable [phone] Jr Hogue MD Primary Care Provid er Chicho Hargrove MD Primary Care Provider [phone] Encounter Details Date Type Department Care Team (Late st Contact Info) Description 01/05/2019 Procedure Pass [facility] MR Imaging, Black [address] [place] [address] Social History Tobacco Use Types Packs/Day Years [...] AM EST Telemedicine [facility] Urology [address] [place], [place] [address] [place] [address] Ayaan Corrales MD [address] [place] [address] 11-3 [place] [address] [email or web address] documented as of this encounter Visit Diagnoses Not on filedocumented in this encounter Care Teams Keg Varnisher Relationship Specialty Start Date End Date Regino Coleman MD [address] [place] [address] PCP - General Internal Medicine 04/29/18 04/04/25 Jr Hogue MD [address] [place] [address] PCP - General Internal Medicine 04/05/25 08/07/25 Chicho Hargrove MD [address] [place] [address] PCP - General Internal Medicine 08/08/25 Fallon Dillard MD [address] [place] [address] [email or web address] Referring Physician Hematology and Oncology 04/29/18 documented as of this encounter Additional Source Comments The information contained in this document represents components of the legal health record. It is not the complete legal health record.[facility]
--- OUTSIDE RECORDS SUMMARY | 2025-08-21 15:21 | XMS_ITS | Encounter Summary ---
Author Organization [facility] Address [address] [place] [address] Phone Care Team Providers Care Supervisor Brake Repair Name Role Phone Regino Coleman MD Primary Care Provider Fallon Dillard MD Unavailable [phone] Jr Hogue MD Primary Care Provid er Chicho Hargrove MD Primary Care Provider Encounter Details Date Type Department Care Team (Late st Contact Info) Description 06/10/2021 Ancillary Orders [facility],Outside Imaging [address] [place] [address] System, Provider Not In, [facility] [address] [address] Social History Tobacco Use Types Packs/Day Years [...] Info) Description 09/04/2025 11:50 AM EST Telemedicine [facility] Urology 45 [facility] ASB2-[address] [place] [address] Ayaan Corrales MD [address] [place] [address], [facility] [address] [place] [address] [email or web address] documented as of this encounter Results [...] filedocumented in this encounter Care Teams Supervisor Brake Repair Relationship Specialty Start Date End Date Regino Coleman MD [address] [place] [address] PCP - General Internal Medicine 04/29/18 04/04/25 Jr Hogue MD [address] [place] [address] PCP - General Internal Medicine 04/05/25 08/07/25 Chicho Hargrove MD [address] [place] [address] PCP - General Internal Medicine 08/08/25 Fallon Dillard MD [address] [place] [address] [email or web address] Referring Physician Hematology and Oncology 04/29/18 documented as of this encounter Additional Source Comments The information contained in this document represents components of the legal health record. It is not the complete legal health record.[facility]
--- OUTSIDE RECORDS SUMMARY | 2025-08-21 15:21 | XMS_ITS | Encounter Summary ---
Author Organization [facility] Address [address] [place] [address] Phone Care Team Providers Care Lamp Cleaner Street Light Name Role Phone Regino Coleman MD Primary Care Provider Fallon Dillard MD Unavailable [phone] Jr Hogue MD Primary Care Provid er Chicho Hargrove MD Primary Care Provider [phone] Encounter Details Date Type Department Care Team (Late st Contact Info) Description 06/15/[address] [facility] MR Imaging, Black [address] [place] [address] Social History Tobacco Use Types Packs/Day Years [...] Description 09/04/2025 11:[address] [facility] Urology [address] [place], [place] [address]3 [place] [address] Ayaan Corrales MD [address] [place] [address] 11-[address] [place] [address] [email or web address] documented as of this encounter Visit Diagnoses Not on filedocumented in this encounter Care Teams Lamp Cleaner Street Light Relationship Specialty Start Date End Date Regino Coleman MD [address] [place] [address] PCP - General Internal Medicine 04/29/18 04/04/25 Jr Hogue MD [address] [place] [address] PCP - General Internal Medicine 04/05/25 08/07/25 Chicho Hargrove MD [address] [place] [address] PCP - General Internal Medicine 08/08/25 Fallon Dillard MD [address] [place] [address] [email or web address] Referring Physician Hematology and Oncology 04/29/18 documented as of this encounter Additional Source Comments The information contained in this document represents components of the legal health record. It is not the complete legal health record.[facility]
--- OUTSIDE RECORDS SUMMARY | 2025-08-21 15:21 | XMS_ITS | Encounter Summary ---
Author Organization [facility] Address [address] [place] [address] Phone Care Team Providers Care Measurement Specialist Name Role Phone Regino Coleman MD Primary Care Provider Fallon Dillard MD Unavailable [phone] Jr Hogue MD Primary Care Provid er Chicho Hargrove MD Primary Care Provider [phone] Encounter Details Date Type Department Care Team (Late st Contact Info) Description 04/27/2019 Procedure Pass [facility] MR Imaging, Black [address] [place] [address] Social History Tobacco Use Types Packs/Day Years [...] Info) Description 09/04/2025 11:50 AM EST Telemedicine [facility] Urology [address] [place], [place] [address]3 [place] [address] Ayaan Corrales MD [address] [place] [address] 11-[address] [place] [address] [email or web address] documented as of this encounter Visit Diagnoses Not on filedocumented in this encounter Care Teams Measurement Specialist Relationship Specialty Start Date End Date Regino Coleman MD [address] [place] [address] PCP - General Internal Medicine 04/29/18 04/04/25 Jr Hogue MD [address] [place] [address] PCP - General Internal Medicine 04/05/25 08/07/25 Chicho Hargrove MD [address] [place] [address] PCP - General Internal Medicine 08/08/25 Fallon Dillard MD [address] [place] [address] [email or web address] Referring Physician Hematology and Oncology 04/29/18 documented as of this encounter Additional Source Comments The information contained in this document represents components of the legal health record. It is not the complete legal health record.[facility]
--- OUTSIDE RECORDS SUMMARY | 2025-08-21 15:21 | XMS_ITS | Encounter Summary ---
Author Organization [facility] Address [address] [place] [address] Phone Care Team Providers Care Superintendent Mechanical Name Role Phone Regino Coleman MD Primary Care Provider Fallon Dillard MD Unavailable [phone] Jr Hogue MD Primary Care Provid er Chicho Hargrove MD Primary Care Provider Encounter Details Date Type Department Care Team (Late st Contact Info) Description 06/10/2021 Ancillary Orders [facility],Outside Imaging 30 [place] [address] System, Provider Not In, [facility] [address] [address] Social History Tobacco Use Types Packs/Day Years [...] EST Telemedicine [facility] Urology 45 [facility] ASB2-3 [place] [address] Ayaan Corrales MD [address] [place] [address], [facility] 11-[address] [place] [address] [email or web address] documented as of this encounter Results [...] filedocumented in this encounter Care Teams Superintendent Mechanical Relationship Specialty Start Date End Date Regino Coleman MD [address] [place] [address] PCP - General Internal Medicine 04/29/18 04/04/25 Jr Hogue MD [address] [place] [address] PCP - General Internal Medicine 04/05/25 08/07/25 Chicho Hargrove MD [address] [place] [address] PCP - General Internal Medicine 08/08/25 Fallon Dillard MD [address] [place] [address] [email or web address] Referring Physician Hematology and Oncology 04/29/18 documented as of this encounter Additional Source Comments The information contained in this document represents components of the legal health record. It is not the complete legal health record.[facility]
--- OUTSIDE RECORDS SUMMARY | 2025-08-21 15:21 | XMS_ITS | Encounter Summary ---
Author Organization [facility] Address [address] [place] [address] Phone Care Team Providers Care Water Team Leader Name Role Phone Regino Coleman MD Primary Care Provider Fallon Dillard MD Unavailable [phone] Jr Hogue MD Primary Care Provid er Chicho Hargrove MD Primary Care Provider [phone] Encounter Details Date Type Department Care Team (Late st Contact Info) Description 09/29/2018 Procedure Pass [facility] MR Imaging, Black [address] [place] [address] Social History Tobacco Use Types Packs/Day Years [...] Info) Description 09/04/2025 11:50 AM EST Telemedicine [facility] Urology [address] [place], [place] [address]-3 [place] [address] Ayaan Corrales MD [address] [place] [address] 11-[address] [place] [address] [email or web address] documented as of this encounter Visit Diagnoses Not on filedocumented in this encounter Care Teams Water Team Leader Relationship Specialty Start Date End Date Regino Coleman MD [address] [place] [address] PCP - General Internal Medicine 04/29/18 04/04/25 Jr Hogue MD [address] [place] [address] PCP - General Internal Medicine 04/05/25 08/07/25 Chicho Hargrove MD [address] [place] [address] PCP - General Internal Medicine 08/08/25 Fallon Dillard MD [address] [place] [address] [email or web address] Referring Physician Hematology and Oncology 04/29/18 documented as of this encounter Additional Source Comments The information contained in this document represents components of the legal health record. It is not the complete legal health record.[facility]
--- OUTSIDE RECORDS SUMMARY | 2025-08-21 15:21 | XMS_ITS | Encounter Summary ---
Author Organization [facility] Address [address] [place] [address] Phone Care Team Providers Care Ambulance Officer Name Role Phone Regino Coleman MD Primary Care Provider [phone] Encounter Details Date Type Department Care Team (Late st Contact Info) Description 01/06/2023 Telephone [facility] [address] [place] [address] Ying Medrano Social History Tobacco [...] appt w/ [facility] and fax order to [facility] and they will call and book sooner appt. Pt stated that she is going to see her urgent care physician in 2 weeks and her MD stated she will do th US in office. Pls advise if you would like her urgent care physician to do US or move forward with the hospital. Her urgent care physician does not have a radiology department. * Telephone Encounter - Ying Medrano - 01/06/2023 9:51 AM EDT PT says she has renal ultrasound scheduled for 03/01/23. PT wants to be seen sooner, she is asking for an earlier appointment and is willing to commute to [place] if she can get a sooner appointment. documented in this encounter Plan of Treatment Not on file documented as of this encounter Visit Diagnoses Not on filedocumented in this encounter Care Teams Ambulance Officer Relationship Specialty Start Date End Date Regino Coleman MD [address] [place] [address] DR[address] [place] PCP - General 10/21/20 documented as of this encounter
--- OUTSIDE RECORDS SUMMARY | 2025-08-21 15:21 | XMS_ITS | Patient Health Record ---
Author Organization [facility] Address [address] [place] [address] Care Team Providers Care Athletic Equipment Manager Name Role Phone DESHAUN OROURKE Primary Care Provider Amilcar Santiago [phone] Allergies No Known Allergies Results Component Value Reference Range Notes Pathology (Not yet reviewed by provider) Interpretation: Performing Lab:[facility], [address] [place] [phone] Notes/Report: Reason For Referral No Information Medications [...] Status Risk Notes Problem Irritable bowel syndrome (36682998) Irritable bowel syndrome (K58.9) Active confirmed Problem Screening for malignant neoplasm of colon (480207646) Encounter for screening for malignant neoplasm of colon (Z12.11) Active confirmed Problem Diarrhea (29846611) Diarrhea (R19.7) Active con firmed Problem Change in bowel habit (93630158) Change in bowel habits (R19.4) Active confirmed Problem Screening for malignant neoplasm of rectum (603945200) Encounter for screening for malignant neoplasm of rectum (Z12.12) Active confirmed Problem Blood in stool (356060754) Blood in stool (K92.1) Active confirmed Problem Gastroesophageal reflux disease without esophagitis (808963796) Gastroesophageal reflux disease without esophagitis (K21.9) Active confirmed Problem Gastroesophageal reflux disease (153992939) Gastroesophageal reflux disease, esophagitis presence not specified (K21.9) Active confirmed Problem Pancreatic cyst (27881192) 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) Active confirmed Problem Constipation (17611033) Constipation, unspecified constipation type (K59.00) Active confirmed Problem Left lower quadrant pain (564603703) Abdominal pain, left lower quadrant (R10.32) Active confirmed Problem Gastroesophageal reflux disease (170431728) GERD (gastroesophageal reflux disease) (K21.9) Active confirmed Problem Irritable bowel syndrome characterized by constipation (006047373) Irritable bowel syndrome with constipation (K58.1) Active confirmed Problem Irritable bowel syndrome (95474161) Irritable bowel syndrome with both constipation and diarrhea (K58.2) Active confirmed Problem Thrombocytosis (disorder) (2041869) Thrombocytosis, unspecified (D75.839) Active confirmed Problem Neoplasm of digestive system (948770647) IPMN (intraductal papillary mucinous neoplasm) (D49.0) Active confirmed Vital Signs Blood pressure diastolic 77 mm Hg 04/03/2025 Height 64 in 04/03/2025 Blood pressure systolic 111 mm Hg 04/03/2025 Weight 136 lbs 04/03/2025 BMI 23.34 kg/m2 04/03/2025 Procedures Procedure Date Ordered Date Performed Result Body Sit e UPPER GI ENDOSCOPY 04/03/2025 N/A COLONOSCOPY 04/03/2025 N/A Encounters Encounter Location Date Provider Diagnosis [facility] [place] [address] [place], [place] [phone] 07/04/2025 Amilcar Sosa [facility] [address] [facility] [address] [place] [address] 09/28/2024 Amilcar Sosa Gastroesophageal ref lux disease, esophagitis presence not specified K21.9 ; Irritable bowel syndrome with constipation K58.1 ; Encounter for screening for malignant neoplasm of colon Z12.11 ; Constipation, unspecified constipation type K59.00 and Pancreatic cyst K86.2 [facility] [address] [place] [address] 04/03/2025 Amilcar Sosa Change in bowel habi ts R19.4 ; Irritable bowel syndrome with both constipation and diarrhea K58.2 ; GERD (gastroesophageal reflux disease) K21.9 and IPMN (intraductal papillary mucinous neoplasm) D49.0 [facility] [address] [address] 09/28/2024 Amilcar Sosa [facility] [address] [place] [phone] 04/03/2025 Amilcar Sosa Assessments Encounter Date Diagnosis [...] will be having it done up at [facility] as it is ordered by her [place] physicians in regard to the follow-up of [...] will be having it done up at [facility] as it is ordered by her [place] physicians in regard to the follow-up of [...] will be having it done up at [facility] as it is ordered by her [place] physicians in regard to the follow-up of [...] will be having it done up at [facility] as it is ordered by her [place] physicians in regard to the follow-up of [...] (ICD-10 - K86.2) Need MRI report from [facility] from 06/2024 Overall, Cordell appears well. [...] Ingrid Sosa , 09/27/2025 09:00:00 AM, [address] [facility] [address], [address], [place], [address], Insurance Providers Payer Name Payer Address Payer Phone Subscriber Number Group Number Insured Name Patient Relationship to Insured Coverage Start Date Coverage End Date MEDICARE OF [place] [address] [place] [address] [id number] CORDELL ORDAZ Self - patient is the insured [employer] ([employer]) [address] [place] [id number] LENA Wright CORDELL Self - patient is the insured Medical (General) History Medical History History ICD Code Screening colonoscopy 05-24-2009--negativ e EGD 01-05-2002 and in 11/2016--small HH, n o esophagitis, no Hernandes's Asthma--presently asymptomatic 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 Dillard Mitral valve prolapse Lyme's disease/Fibromyalgia--Amitryptile ne and Gabapentin Migraines-on Propranolol Hyperlipidemia Arthritis in left foot--Meloxicam/Cortis one injections Denies [place],DM,CVA,renal disease Renal cancer with surgery in 06/2018 [...] 11/18/2022 [facility] Corrales 06/2018 Uterine polyps Breast biopsy -2013--breast-left--LCIS Left ovary removed and appy Broken ankle/beau and screws right Cyst removed both breasts Tonsillectomy
--- OUTSIDE RECORDS SUMMARY | 2025-08-21 15:21 | XMS_ITS | Encounter Summary ---
Author Organization [facility] Address [address] [place] [address] Phone Care Team Providers Care Set Up Mechanic Automatic Line Name Role Phone Regino Coleman MD Primary Care Provider [phone] Encounter Details Date Type Department Care Team (Late st Contact Info) Description 11/25/2022 Telephone [facility] [address] [place] [address] Ying Medrano Social History Tobacco [...] called to relay that Dr. Reyes from [facility] had recently put a stent in [...] on filedocumented in this encounter Care Teams Set Up Mechanic Automatic Line Relationship Specialty Start Date End Date Regino Coleman MD [address] [place] PCP - General 10/21/20 documented as of this encounter
--- OUTSIDE RECORDS SUMMARY | 2025-08-21 15:21 | XMS_ITS | Encounter Summary ---
Author Organization [facility] Address [address] [place] [address] Phone Care Team Providers Care Wrister Name Role Phone Regino Coleman MD Primary Care Provider Fallon Dillard MD Unavailable [phone] Jr Hogue MD Primary Care Provid er Chicho Hargrove MD Primary Care Provider Encounter Details Date Type Department Care Team (Late st Contact Info) Description 06/10/2021 Ancillary Orders [facility],Outside Imaging [address] [place] [address] System, Provider Not In, [facility] [address] [address] Social History Tobacco Use Types Packs/Day Years [...] Info) Description 09/04/2025 11:50 AM EST Telemedicine [facility] Urology [address] [facility] [address] [place] [address] Ayaan Corrales MD [address] [place] [address], [facility] [address] [place] [address] [email or web address] documented as of this encounter [...] on filedocumented in this encounter Care Teams Wrister Relationship Specialty Start Date End Date Regino Coleman MD [address] [place] [address] PCP - General Internal Medicine 04/29/18 04/04/25 Jr Hogue MD [address] [place] [address] PCP - General Internal Medicine 04/05/25 08/07/25 Chicho Hargrove MD [address] [place] [address] PCP - General Internal Medicine 08/08/25 Fallon Dillard MD [address] [place] [address] [email or web address] Referring Physician Hematology and Oncology 04/29/18 documented as of this encounter Additional Source Comments The information contained in this document represents components of the legal health record. It is not the complete legal health record.[facility]
--- OUTSIDE RECORDS SUMMARY | 2025-08-21 15:21 | XMS_ITS | Encounter Summary ---
Author Organization [facility] Address [address] [place] [address] Phone Care Team Providers Care Unemployment Insurance Director Name Role Phone Regino Coleman MD Primary Care Provider Fallon Dillard MD Unavailable [phone] Jr Hogue MD Primary Care Provid er Chicho Hargrove MD Primary Care Provider [phone] Encounter Details Date Type Department Care Team (Late st Contact Info) Description 08/19/2023 Procedure Pass [facility], [address] [address] Social History Tobacco Use Types Packs/Day Years [...] Info) Description 09/04/2025 11:50 AM EST Telemedicine [facility] Urology [address] [facility] [place] [address] Ayaan Corrales MD [address] [facility] [address] [place] [address] [email or web address] documented as of this encounter Visit Diagnoses Not on filedocumented in this encounter Care Teams Unemployment Insurance Director Relationship Specialty Start Date End Date Regino Coleman MD [address] [place] [address] PCP - General Internal Medicine 04/29/18 04/04/25 Jr Hogue MD [address] [place] [address] PCP - General Internal Medicine 04/05/25 08/07/25 Chicho Hargrove MD [address] [place] [address] PCP - General Internal Medicine 08/08/25 Fallon Dillard MD [address] [place] [address] [email or web address] Referring Physician Hematology and Oncology 04/29/18 documented as of this encounter Additional Source Comments The information contained in this document represents components of the legal health record. It is not the complete legal health record.[facility]
--- OUTSIDE RECORDS SUMMARY | 2025-08-21 15:22 | XMS_ITS | Encounter Summary ---
Author Organization [facility] Address [address] [place] [address] Phone Care Team Providers Care Polygraph Operator Name Role Phone Regino Coleman MD Primary Care Provider Fallon Dillard MD Unavailable [phone] Jr Hogue MD Primary Care Provid er Chicho Hargrove MD Primary Care Provider [phone] Encounter Details Date Type Department Care Team (Late st Contact Info) Description 07/07/2022 Procedure Pass [facility], [address] [address] Social History Tobacco Use Types Packs/Day Years [...] Info) Description 09/04/2025 11:50 AM EST Telemedicine [facility] Urology [address] [place], [place] [address] [place] [address] Ayaan Corrales MD [address] [place] [address] [address] [place] [address] [email or web address] documented as of this encounter Visit Diagnoses Not on filedocumented in this encounter Care Teams Polygraph Operator Relationship Specialty Start Date End Date Regino Coleman MD [address] [place] [address] PCP - General Internal Medicine 04/29/18 04/04/25 Jr Hogue MD [address] [address] PCP - General Internal Medicine 04/05/25 08/07/25 Chicho Hargrove MD [address] [place] [address] PCP - General Internal Medicine 08/08/25 Fallon Dillard MD [address] [place] [address] [email or web address] Referring Physician Hematology and Oncology 04/29/18 documented as of this encounter Additional Source Comments The information contained in this document represents components of the legal health record. It is not the complete legal health record.[facility]
--- OUTSIDE RECORDS SUMMARY | 2025-08-21 15:22 | XMS_ITS | Patient Health Record ---
Author Organization [facility] Address [address] [place] [address] Care Team Providers Care Webmethods Consultant Name Role Phone Jr Hogue Primary Care Provider [phone] Black, Aye Unavailable [phone] Allergies Allergen (clinical drug ingredient) Drug/Non Drug [...] primary osteoarthritis of the ankle and/or foot (104368652) Primary osteoarthrit is, left ankle and foot (M19.072) Active confirmed Vital Signs Blood pressure diastolic 75 mm Hg 05/24/2025 Height 5ft3in in 05/24/2025 Blood pressure systolic 121 mm Hg 05/24/2025 Weight 136 lbs 05/24/2025 BMI 24.09 kg/m2 05/24/2025 Procedures Procedure Date Ordered Date Performed Result Body Sit e , E5850-QIYVT/INJECT, JOINT/BURSA 05/24/2025 N/A Encounters Encounter Location Date Provider Diagnosis [facility] [address] [place] [address] 02/12/2025 Aye Black Primary osteoarthrit is, left [...] Other hammer toe(s) (acquired), right foot M20.[address] [facility] [address] 05/24/2025 Aye Bliss Primary osteoarthrit is, left ankle and foot M19.072 ; Joint pain M25.50 ; Neuralgia and neuritis, unspecified M79.2 and Hypertrophy of bone, 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 [facility] [address] [facility] [address] [place] [address] 12/11/2024 Aye Bliss [address] [address] 02/12/2025 Aye Bliss Assessments Encounter Date Diagnosis [...] neurit is, unspecified (ICD-10 - M79.2) 05/24/2025 Hypertrophy of bone, left ankle and [...] X ray : Foot, right 3V 04/24/2013 02304-Kxre Destruction, -02/08/2023 53889-Llop Destruction, -12/08/202192384, G2329-RRBXQ/INJECT, JOINT/BURSA 0 04/06/202223313, U2453-UYFPP/INJECT, JOINT/BURSA 1 00, P4371-JZSJI/INJECT, JOINT/BURSA 0 02/08/2023 65071, Y5941-PBEGQ/INJECT, JOINT/BURSA 1 11/02/201939760, Y8240-DSVMW/INJECT, JOINT/BURSA 0 01/02/2021, Z6838-HQRYT/INJECT, JOINT/BURSA 0 05/05/202172127, Q2800-URSIY/INJECT, JOINT/BURSA 1 [address], J7562-IHVQP/INJECT, JOINT/BURSA 0 12/08/202191447, I7740-TLKFT/INJECT, JOINT/BURSA 0 04/08/2016 78[address], P8684-PDJSE/INJECT, JOINT/BURSA 0 11/02/2016 87805, S7851-VWQWX/INJECT, JOINT/BURSA 0 01/26/201774582, N9222-JYHNZ/INJECT, JOINT/BURSA 1 11/24/201673290, K5142-YQGEK/INJECT, JOINT/BURSA 0 12/10/2017 [address], O8280-KVEKQ/INJECT, JOINT/BURSA 0 03/14/2018 87348, V9837-KFRNH/INJECT, JOINT/BURSA 1 10/29/2017 22351, P0902-INRDJ/INJECT, JOINT/BURSA 0 12/19/2018 82073, O6319-IUKKN/INJECT, JOINT/BURSA 0 04/20/201990089, L7863-NTOBY/INJECT, JOINT/BURSA 1 10/24/201842561, U6376-ACKSN/INJECT, JOINT/BURSA 0 01/01/2020, M8111-FTTDL/INJECT, JOINT/BURSA 0 06/21/2023, D9987-YNOQV/INJECT, JOINT/BURSA 0 11/01/2023, J3261-UIQRW/INJECT, JOINT/BURSA 0 02/28/2024, W4597-AMWJF/INJECT, JOINT/BURSA 1 10/17/2023, Q1204-UTECV/INJECT, JOINT/BURSA 0 05/24/2025,P7293-TFZ TENDON SHEATH/LIGAMENT 0 05/02/2020 Next Appt Details Provider Name:Aye Bliss , 08/27/2025 08:15:00 AM, [address] [place] [address], [phone], Insurance Providers Payer Name Payer Address Payer Phone Subscriber Number Group Number Insured Name Patient Relationship to Insured Coverage Start Date Coverage End Date Medicare National Govt [employer] [address] [place] [address] [id number] Rebekah Suh Self - patient is the insured [employer] ([facility]) [address] [place] [address] [id number] Rebekah Suh Self - patient is [...] bladder prolapse 12/29/24 Hospitalization History Reason Date([place]/Year[place] [facility] [place] to fent[place] w hen colonoscopy was done 08/2017
--- OUTSIDE RECORDS SUMMARY | 2025-08-21 15:22 | XMS_ITS | Encounter Summary ---
Author Organization [facility] Address [address] [place] [address] Phone Care Team Providers Care Dairy Worker Name Role Phone Regino Coleman MD Primary Care Provider Fallon Dillard MD Unavailable [phone] Jr Hogue MD Primary Care Provid er Chicho Hargrove MD Primary Care Provider [phone] Encounter Details Date Type Department Care Team (Late st Contact Info) Description 06/23/2018 Procedure Pass [facility] [address] [id number] Social History Tobacco Use Types Packs/Day Years [...] Info) Description 09/04/2025 11:50 AM EST Telemedicine [facility] Urology [address] [facility] [place] [address] Ayaan Corrales MD [address] [place] [address] [address] [place] [address] [email or web address] documented as of this encounter Visit Diagnoses Not on filedocumented in this encounter Care Teams Dairy Worker Relationship Specialty Start Date End Date Regino Coleman MD [address] [place] [address] PCP - General Internal Medicine 04/29/18 04/04/25 Jr Hogue MD [address] [place] [address] PCP - General Internal Medicine 04/05/25 08/07/25 Chicho Hargrove MD [address] [place] [address] PCP - General Internal Medicine 08/08/25 Fallon Dillard MD [address] [place] [address] [email or web address] [employer] Referring Physician Hematology and Oncology 04/29/18 documented as of this encounter Additional Source Comments The information contained in this document represents components of the legal health record. It is not the complete legal health record.[facility]
--- OUTSIDE RECORDS SUMMARY | 2025-08-21 15:22 | XMS_ITS | Clinical Summary ---
Author Organization [facility] Address [address] [facility] [address] [place] [address] Care Team Providers Care Money Order Clerk Name Role Phone Regino Coleman MD Primary Care Provider [phone] Allergies Active Allergy Reactions Criticality Noted Date [...] initially though review of the pathology by [facility], Department of Pathology suggests that it may [...] date. Immunizations Immunization Administration Dates Next Due Community [facility] SARS-COV-2 12/14/2020 [employer] SARS-COV-2 08/06/2021 Pneumococcal Conjugate 13-Valent 12/29/2019 Family [...] age to complete this topic Insurance Medicare [facility] Medicare [facility] Care Teams Money Order Clerk Relationship Specialty Start Date End Date Regino Coleman MD [address] [place] PCP - General 10/21/20
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
== END 2025-08-21 13:46 | disposition home or self-care (01) ==
LOC: HO.HAP 13:45
PROVIDERS: Visit Provider Internal Medicine
DX: Z46.1 Encounter for fitting and adjustment of hearing aid (principal); H90.3 Sensorineural hearing loss, bilateral
CPT/HCPCS: 92593

== ENCOUNTER 2025-08-28 12:42 | Outpatient (AMB) | payer MEDICARE, OTHER, SELFPAY ==
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
[2025-08-28 12:54] VITALS: BP 131/59; PULSE 72; O2SAT 100; BMI 23.9
== END 2025-08-28 13:29 | disposition home or self-care (01) ==
PROVIDERS: PCP Student in an Organized Health Care Education/Training Program; Visit Provider Nurse Practitioner Family
DX: M47.816 Spondylosis without myelopathy or radiculopathy, lumbar region (principal); M54.16 Radiculopathy, lumbar region; M51.369 Other intervertebral disc degeneration, lumbar region without mention of lumbar back pain or lower extremity pain; M54.50 Low back pain, unspecified; G89.29 Other chronic pain
CPT/HCPCS: 99214; G2211

== ENCOUNTER → 2025-08-28 12:42 | Outpatient (BNVA) | payer MEDICARE, OTHER, SELFPAY | PROVIDERS: PCP Student in an Organized Health Care Education/Training Program; Visit Provider Nurse Practitioner Family | DX: M47.816 Spondylosis without myelopathy or radiculopathy, lumbar region (principal); M54.16 Radiculopathy, lumbar region; M51.369 Other intervertebral disc degeneration, lumbar region without mention of lumbar back pain or lower extremity pain; M54.50 Low back pain, unspecified; G89.29 Other chronic pain | CPT/HCPCS: 99212 ==

== ENCOUNTER 2025-09-12 09:22 | Outpatient (AMB) | payer MEDICARE, OTHER, SELFPAY ==
--- NOTE | 2025-09-12 09:23 | MHC.PC.OV ---
Vital Signs 09/12/25 09:28 Height 5 ft 2.6 in Weight 139 lb BMI 24.9 BP 130/86 Blood Pressure Location Lt brachial Position Sitting Respiration 18 Pulse 68 Pulse Source Pulse Oximeter Temp 97.4 F Temp Source Temporal Artery Scan Pulse Oximetry (%) 98 Oxygen Delivery Method Room Air Intake Visit Reasons: 6 Week F/U New RX Traffic Rate Analyst Required: No Accompanied by: Self / Same As Patient Allergies fentanyl (FENTANYL) Allergy (Severe, Verified 09/12/25 09:23) SEVERE VOMITING, severe headache, vomiting sulfamethoxazole (From BACTRIM) Allergy (Severe, Verified 09/12/25 09:23) CANNOT TAKE-ONLY HAS ONE KIDNEY trimethoprim (From BACTRIM) Allergy (Severe, Verified 09/12/25 09:23) CANNOT TAKE-ONLY HAS ONE KIDNEY Medication List - Last Reconciled 09/12/25 by Chicho Hargrove MD albuterol sulfate 90 mcg/actuation 2 puffs PO Q4-6H PRN alendronate 70 mg PO QWEEK atorvastatin (Lipitor) 20 mg PO DAILY calcium carbonate-vitamin D3 500 mg-3.125 mcg (125 unit) 1 tab PO DAILY estradiol 0.01%(0.1mg/gram) 1 g vaginal 3XW fluticasone propionate 50 mcg/actuation 1 spray intranasal DAILY PRN fllzvwozires-epkqgmoe-rofeai 1 tab PO DAILY omeprazole magnesium (Prilosec OTC) 20 mg PO DAILY polyethylene glycol 3350 (Miralax) 17 grams PO BID propranolol 10 mg PO DAILY psyllium husk (Metamucil) 0.4 grams PO DAILY sumatriptan succinate take 1 tab at onset of headache; if no relief may repeat 1 tab after at least 2 hrs; max = 4 tabs/24 hr PO Tobacco use date assessed: 08/13/25 Fall risk assessment: No Falls in past year Last assessed Fall Risk: 09/12/25 Dental Screening Dental Screen Date: 08/13/25 HPI HPI Comments History of Present Illness Details History of Present Illness The patient is a 69 year old individual presenting for follow-up on a chronic cough and management of multiple chronic conditions. The patient reports a persistent cough since August 02, which is associated with postnasal drip and sinus issues. The cough occurs in episodes and has not resolved despite trying Zyrtec, Mucinex, and four bottles of Robitussin, though Robitussin provides some help. The patient also uses fluticasone nasal spray daily. A prior chest x-ray was clear, and the patient denies an increase in acid reflux symptoms. The patient has a history of stage 3B kidney disease with a single kidney. A recent kidney scan (MRI) was fine, and a virtual appointment with a specialist at [facility] confirmed the patient has better function in the single kidney than some people with two, with an excellent creatinine level. The patient complains of generalized chronic pain, which is not relieved by taking two 325 mg or 500 mg Tylenol tablets. The patient was previously told to avoid tramadol. For chronic conditions, the patient takes alendronate, calcium, and vitamin D for osteoporosis; atorvastatin 20 mg for high cholesterol; and omeprazole 20 mg for acid reflux. Abdominal pain related to IBS has somewhat improved with MiraLax and simethicone (Gas-X). For migraines, the patient uses propranolol for prophylaxis and sumatriptan for acute episodes, noting the sumatriptan has recently become effective after previously not working. The patient has a history of asthma and uses albuterol as needed. A recent A1c was 5.4. Medical History: - Chronic cough - Postnasal drip - Allergies - Asthma, diagnosed many years ago - Osteoporosis - Hypercholesterolemia - Gastroesophageal reflux disease - Irritable Bowel Syndrome (IBS) - Migraine - Chronic kidney disease, stage 3B - Chronic generalized pain - Osteoarthritis Surgical History: - Prior surgery at [facility], resulting in a single kidney Medications: - Albuterol, as needed for asthma - Alendronate for osteoporosis - Atorvastatin (Lipitor) 20 mg for hypercholesterolemia - Calcium and Vitamin D for osteoporosis - Fluticasone nasal spray for allergies - Omeprazole 20 mg for acid reflux - MiraLax for abdominal pain/IBS - Simethicone (Gas-X) for abdominal pain/IBS - Propranolol for migraine prophylaxis - Sumatriptan for acute migraines - Zyrtec for allergies - Robitussin for cough - Tramadol, used as needed for severe pain Family History: - Sister has severe migraines requiring injections and other medications, including sumatriptan. Diagnostic Results: - Labs: A1c is 5.4; creatinine level was reported as the best reading ever. - Imaging: Chest x-ray was clear; Kidney scan (MRI) results were fine. Social History - Exercise: Attends water aerobics classes. 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 History of kidney cancer Chronic kidney disease Migraines Osteoarthritis Fibromyalgia Hypercholesteremia Surgical History History of bladder surgery History of colonoscopy (07/04/25) History of hernia repair H/O hysterectomy for benign disease Hx of surgical procedure (~08/03/23) H/O vaginal hysterectomy History of incisional hernia repair (~11/29/19) History of nephrectomy, left (~06/2018) Status post biopsy of kidney (~04/2018) History of breast biopsy (~05/11/14) History of tonsillectomy and adenoidectomy S/P removal of left ovary (~1978) History of removal of cyst (~1972) History of ankle surgery (~2003) H/O kidney removal History of breast surgery Hx of tonsillectomy Family History (Updated 08/13/25 @ 09:00 by Che Richardson MA) Father Stomach cancer Prostate cancer High cholesterol Sister Stroke Mother High cholesterol CLL (chronic lymphocytic leukemia) Maternal Aunt Breast cancer Social History Household Members: Spouse Housing: House Are you a primary chronic care nurse to a significant other at home: No Do you presently have visiting nurse or other home services: No Alcohol intake: current Alcohol intake frequency: holidays/special occasions only Patient Tobacco Use Status: Never used Tobacco e-Cigarette/Vaping Use: Never Used Advance Directives Date on File: 07/25/20 service: No Current occupational status: 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 Amilcar Tyler, Lay Madison, Nicholas Hodge and colleagues, with an educational hung from [employer]. Review of Systems Narrative Review of Systems - Respiratory: Reports a persistent cough with episodes since August 02. - HEENT: Reports postnasal drip and sinus issues. - Gastrointestinal: Reports abdominal pain is somewhat better; denies increased acid reflux symptoms; reports normal urination and defecation. - Musculoskeletal: Reports generalized pain. - Neurological: Reports migraines, which have recently responded to sumatriptan. All systems reviewed & are unremarkable except as reviewed in HPI and above Physical exam (Primary Care) Vital Signs: Last Vital Signs Temp 97.4 F 09/12/25 09:28 Pulse 68 09/12/25 09:28 Resp 18 09/12/25 09:28 BP 130/86 09/12/25 09:28 Pulse Ox 98 09/12/25 09:28 Oxygen Delivery Method Room Air 09/12/25 09:28 BMI result Body Mass Index 24.9 Tobacco/Smoking Status: Tobacco use Status Tobacco use date assessed 08/13/25 09/12/25 09:30 Patient Tobacco Use Status Never used Tobacco 09/12/25 09:30 e-Cigarette/Vaping Use Never Used 09/12/25 09:30 Thrive Assessment: Date of Thrive Assessment Date Thrive assessed 08/13/25 09/12/25 09:30 Narrative Physical Exam General: +Alert and oriented, Well nourished, No acute distress. Eye: Pupils are equal, round and reactive to light, Intact accommodation, Extraocular movements are intact, Normal conjunctiva, Vision unchanged. HENT: Normocephalic, Atraumatic, Tympanic membranes are clear, Normal hearing, Oral mucosa is moist, No pharyngeal erythema, Ear canals patent. Respiratory: Lungs CTA bilaterally, No wheeze, Respirations are non-labored. Cardiovascular: Regular rate, Regular rhythm, S1 auscultated, S2 auscultated, No murmur, Good pulses equal in all extremities, Normal peripheral perfusion, No edema. Gastrointestinal: Soft, Non-tender, Non-distended, Normal bowel sounds, No organomegaly. Musculoskeletal: Normal range of motion, Normal strength, No tenderness, No swelling, No deformity, Normal gait. Integumentary: Warm, Dry, [place], Intact. Neurologic: Alert, Oriented, Normal sensory, Normal motor function, No focal defects, Cranial Nerves II-XII are grossly intact, Normal deep tendon reflexes. Psychiatric: Cooperative, Appropriate mood & affect, Normal judgment. Coding Level of Care Code Est Pt Level 4 (67403) Complex visit Add On G2211 Diagnoses Chronic cough R05.3 Osteoarthritis, unspecified osteoarthritis type, unspecified site M19.90 Osteoarthritis location: unspecified site Osteoarthritis type: unspecified Migraine without aura and without status migrainosus, not intractable G43.009 Migraine type: without aura Status migrainosus presence: without status migrainosus Intractability: not intractable Irritable bowel syndrome with both constipation and diarrhea K58.2 Irritable bowel syndrome type: with both diarrhea and constipation CKD stage 3b, GFR 30-44 ml/min N18.32 Acquired solitary kidney Z90.5 Gastroesophageal reflux disease without esophagitis K21.9 Esophagitis presence: without esophagitis Assessment & Plan Assessment & Plan (1) Chronic cough: Comment: - The cough is likely secondary to allergies or postnasal drip. - The patient reports some benefit from Robitussin and will continue its use. - The plan included pausing the fluticasone nasal spray for a week to rule out rebound symptoms and considering a stronger kuzn-ocq-mvwpvda anti-allergic medication. - The patient declined a prescription for a codeine-based cough suppressant. Code(s): R05.3 - Chronic cough Category: Medical (2) Osteoarthritis: Comment: - The patient reports generalized pain not controlled by Tylenol. - Due to the patient's Stage 3B CKD, pain management options are limited. - A prescription for tramadol (60 pills) was provided for as-needed use for unbearable pain, with counseling on the risks and the need for limited use. Code(s): M19.90 - Unspecified osteoarthritis, unspecified site Category: Medical Qualifiers: Osteoarthritis location: unspecified site Osteoarthritis type: unspecified Qualified Code(s): M19.90 - Unspecified osteoarthritis, unspecified site (3) Migraines: Comment: - The condition is stable with prophylactic propranolol. - Sumatriptan is now effective for abortive therapy. - The patient will continue the current regimen. Code(s): G43.909 - Migraine, unspecified, not intractable, without status migrainosus Category: Medical Qualifiers: Migraine type: without aura Status migrainosus presence: without status migrainosus Intractability: not intractable Qualified Code(s): G43.009 - Migraine without aura, not intractable, without status migrainosus (4) IBS (irritable bowel syndrome): Comment: - Symptoms of abdominal pain are somewhat better with MiraLax and simethicone. - The patient will continue this regimen as needed, adjusting the MiraLax dose based on bowel movement frequency. Code(s): K58.9 - Irritable bowel syndrome, unspecified Category: Medical Qualifiers: Irritable bowel syndrome type: with both diarrhea and constipation Qualified Code(s): K58.2 - Mixed irritable bowel syndrome (5) CKD stage 3b, GFR 30-44 ml/min: Comment: - The patient has a single kidney but excellent renal function confirmed by a recent specialist visit and labs, with a normal kidney scan. - Management includes avoiding nephrotoxic medications. Code(s): N18.32 - Chronic kidney disease, stage 3b Category: Medical (6) Acquired solitary kidney: Comment: - Continue routine surveillance for recurrence of kidney cancer with annual imaging. - Maintain appropriate management for single kidney function. - Most recent scan from August 2025 stable Code(s): Z90.5 - Acquired absence of kidney Category: Medical (7) GERD (gastroesophageal reflux disease): Comment: - Continue current medication regimen as necessary for symptom management. Code(s): K21.9 - Gastro-esophageal reflux disease without esophagitis Category: Medical Qualifiers: Esophagitis presence: without esophagitis Qualified Code(s): K21.9 - Gastro-esophageal reflux disease without esophagitis Plan: 6. Stable Chronic Conditions (Osteoporosis, Hypercholesterolemia, GERD, Asthma) - All conditions are stable on the current medication regimen. - The patient will continue alendronate, atorvastatin, omeprazole, and albuterol as prescribed. Health Maintenance: - Lab Monitoring: Recent A1c was 5.4, indicating good blood sugar control and low risk for diabetes. - Kidney Health: Reviewed recent kidney scan (MRI) and creatinine levels, which showed excellent function of the patient's single kidney. Patient was informed and verbally consented to the use of an ambient scribe for clinic note documentation during this visit. Plan I reviewed the patient's persistent cough, which we attribute to postnasal drip. I recommended a trial off the fluticasone nasal spray for one week, as it can sometimes cause rebound symptoms, and suggested a stronger hnfm-hst-vzdmbib anti-allergic medication. While a codeine-based cough suppressant was an option, the patient preferred to continue with Robitussin. We discussed management of the patient's chronic generalized pain. I explained my reluctance to prescribe tramadol due to the patient's stage 3B chronic kidney disease. However, given the pain's severity and its impact on function, I agreed to prescribe a limited quantity of 60 pills for as-needed use, emphasizing that it should be used as sparingly as possible for unbearable pain only. We reviewed the recent reassuring kidney scan results and labs, including an excellent creatinine level, which the patient had discussed with a specialist. We also noted the recent success of sumatriptan for migraine relief. All other chronic conditions appear stable, and the patient's A1c of 5.4 is excellent. I advised a follow-up visit in three months to monitor these conditions. Medications: Changed From tramadol 50 mg PO BID 60 tabs 0RF Moderate Pain (Scale Score 5-6) To tramadol 50 mg PO DAILY 60 tabs 0RF Moderate Pain (Scale Score 5-6) 60 days Refilled sumatriptan succinate take 1 tab at onset of headache; if no relief may repeat 1 tab after at least 2 hrs; max = 4 tabs/24 hr PO 30 tabs 0RF Patient Instructions: - Stop using your fluticasone nasal spray for one week to see if your cough and postnasal drip improve. - You can try a stronger eaym-xap-pfmssfm allergy pill if Zyrtec is not helping enough. - Continue using Robitussin as needed for your cough. - I have sent a prescription for tramadol to your pharmacy. Take one pill only when your pain is so unbearable that you cannot function. Use this medication as little as possible because of your kidney condition. - Continue taking all your other medications as prescribed for cholesterol, bone health, acid reflux, and migraines. - Your recent lab tests and kidney scan results were good. - Please schedule a follow-up appointment in three months.
[2025-09-12 09:28] VITALS: BP 130/86; PULSE 68; RESP 18; TEMP 36.3; O2SAT 98; BMI 24.9
--- OUTSIDE RECORDS SUMMARY | 2025-09-12 10:12 | XMS_ITS | Encounter Summary ---
Author Organization [facility] Address [address] [place] [phone] Phone Care Team Providers Care Manager Rn Case Name Role Phone Regino Coleman MD Primary Care Provider Fallon Dillard MD Unavailable [phone] Jr Hogue MD Primary Care Provid er Chicho Hargrove MD Primary Care Provider Encounter Details Date Type Department Care Team (Late st Contact Info) Description 05/24/2018 Procedure Pass [facility] OUTSIDE IMG [address] [place] [address] Social History Tobacco Use Types Packs/Day Years Used Date Smoking Tobacco: Never Assessed Comments Unknown Sex and Gender Information Value Date Recorded Sex Assigned at Female 06/08/2018 12:14 PM EDT Legal Sex Female 11:57 AM EDT Gender Identity Female 06/08/2018 12:14 PM EDT Sexual Orientation Straight 06/08/2018 12 :14 PM EDT documented as of this encounter Plan of Treatment Not on file documented as of this encounter Visit Diagnoses Not on filedocumented in this encounter Care Teams Manager Rn Case Relationship Specialty Start Date End Date Regino Coleman MD [address] [place] [address] Dr DYER RICKY [place]onson [address] PCP - General Internal Medicine 04/29/18 04/04/25 Jr Hogue MD [address] [place] [address] PCP - General Internal Medicine 04/05/25 08/07/25 Chicho Hargrove MD [address] [place] [address] PCP - General Internal Medicine 08/08/25 Fallon Dillard MD [address] [place] [address] [email or web address] Referring Physician Hematology and Oncology 04/29/18 documented as of this encounter Additional Source Comments The information contained in this document represents components of the legal health record. It is not the complete legal health record.[facility]
--- OUTSIDE RECORDS SUMMARY | 2025-09-12 10:12 | XMS_ITS | Encounter Summary ---
Author Organization [facility] Address [address] [place] [address] Phone Care Team Providers Care Orientation & Mobility Specialist Name Role Phone Regino Coleman MD Primary Care Provider Fallon Dilalrd MD Unavailable [phone] Jr Hogue MD Primary Care Provid er Chicho Hargrove MD Primary Care Provider [phone] Encounter Details Date Type Department Care Team (Late st Contact Info) Description 08/19/2023 Procedure Pass [facility], [address] [address] Social History Tobacco Use Types Packs/Day Years [...] on filedocumented in this encounter Care Teams Orientation & Mobility Specialist Relationship Specialty Start Date End Date Regino Coleman MD [address] [place] [address] PCP - General Internal Medicine 04/29/18 04/04/25 Jr Hogue MD [address] [place] [address] PCP - General Internal Medicine 04/05/25 08/07/25 Chicho Hargrove MD [address] [place] [address] PCP - General Internal Medicine 08/08/25 Fallon Dillard MD [address] [place] [address] [email or web address] Referring Physician Hematology and Oncology 04/29/18 documented as of this encounter Additional Source Comments The information contained in this document represents components of the legal health record. It is not the complete legal health record.[facility]
--- OUTSIDE RECORDS SUMMARY | 2025-09-12 10:12 | XMS_ITS | Encounter Summary ---
Author Organization [facility] Address [address] [place] [address] Phone Care Team Providers Care Wood Casket Maker Name Role Phone Regino Coleman MD Primary Care Provider Fallon Dillard MD Unavailable [phone] Jr Hogue MD Primary Care Provid er Chicho Hargrove MD Primary Care Provider [phone] Encounter Details Date Type Department Care Team (Late st Contact Info) Description 04/27/2019 Procedure Pass [facility] MR Imaging, Black [address] [place] [address] Social History Tobacco Use Types Packs/Day Years [...] on filedocumented in this encounter Care Teams Wood Casket Maker Relationship Specialty Start Date End Date Regino Coleman MD [address] [place] [address] Dr Greenke RICKY [address] PCP - General Internal Medicine 04/29/18 04/04/25 Jr Hogue MD [address] Rob [address] [place] [address] PCP - General Internal Medicine 04/05/25 08/07/25 Chicho Hargrove MD [address] [place] [address] [address] PCP - General Internal Medicine 08/08/25 Fallon Dillard MD [address] [place] [address] [email or web address] Referring Physician Hematology and Oncology 04/29/18 documented as of this encounter Additional Source Comments The information contained in this document represents components of the legal health record. It is not the complete legal health record.[facility]
--- OUTSIDE RECORDS SUMMARY | 2025-09-12 10:12 | XMS_ITS | Encounter Summary ---
Author Organization [facility] Address [address] [place] [address] [place] [address] Phone Care Team Providers Care Car Inspector Name Role Phone Regino Coleman MD Primary Care Provider Fallon Dillard MD Unavailable [phone] Jr Hogue MD Primary Care Provid er Chicho Hargrove MD Primary Care Provider [phone] Encounter Details Date Type Department Care Team (Late st Contact Info) Description 06/23/2018 Procedure Pass [facility] Radiology [address] [place] [address] Social History Tobacco Use Types Packs/Day Years [...] on filedocumented in this encounter Care Teams Car Inspector Relationship Specialty Start Date End Date Regino Coleman MD [address] [place] [address] Dr Jones RICKY [address] PCP - General Internal Medicine 04/29/18 04/04/25 Jr Hogue MD [address] Rob [address] [place] [address] PCP - General Internal Medicine 04/05/25 08/07/25 Chicho Hargrove MD [address] [place] [address] [address] PCP - General Internal Medicine 08/08/25 Fallon Dillard MD [address] [place] [address] [email or web address] Referring Physician Hematology and Oncology 04/29/18 documented as of this encounter Additional Source Comments The information contained in this document represents components of the legal health record. It is not the complete legal health record.[facility]
--- OUTSIDE RECORDS SUMMARY | 2025-09-12 10:12 | XMS_ITS | Encounter Summary ---
Author Organization [facility] Address [address] [place] [address] Phone Care Team Providers Care Marker Maker Name Role Phone Regino Coleman MD Primary Care Provider Fallon Dillard MD Unavailable [phone] Jr Hogue MD Primary Care Provid er Chicho Hargrove MD Primary Care Provider [phone] Encounter Details Date Type Department Care Team (Late st Contact Info) Description 09/29/2018 Procedure Pass [facility] MR Imaging, Black [address] [place] [address] Social History Tobacco Use Types Packs/Day Years [...] on filedocumented in this encounter Care Teams Marker Maker Relationship Specialty Start Date End Date Regino Coleman MD [address] [place] [address] Dr Greenke RICKY [address] PCP - General Internal Medicine 04/29/18 04/04/25 Jr Hogue MD [address] Rob [address] [place] [address] PCP - General Internal Medicine 04/05/25 08/07/25 Chicho Hargrove MD [address] [place] [address] [address] PCP - General Internal Medicine 08/08/25 Fallon Dillard MD [address] [place] [address] [email or web address] Referring Physician Hematology and Oncology 04/29/18 documented as of this encounter Additional Source Comments The information contained in this document represents components of the legal health record. It is not the complete legal health record.[facility]
--- OUTSIDE RECORDS SUMMARY | 2025-09-12 10:12 | XMS_ITS | Encounter Summary ---
Author Organization [facility] Address [address] [place] [address] Phone Care Team Providers Care Denture Contour Wire Specialist Name Role Phone Regino Coleman MD Primary Care Provider Fallon Dillard MD Unavailable [phone] Jr Hogue MD Primary Care Provid er Chicho Hargrove MD Primary Care Provider Encounter Details Date Type Department Care Team (Late st Contact Info) Description 06/10/2021 Ancillary Orders [facility],Outside Imaging [address] [place], [place] [id number] System, Provider [place] In, [place] [address] Social History Tobacco Use Types Packs/Day Years [...] on file documented as of this encounter Results * MRI Abdomen Outside (No Interpretation) (06/19/2020 12:00 AM EDT) Narrative SYSTEMGENERATED, DOCUMENTATION - 06/10/2021 7:19 AM EDT This study is for PACS storage only and not for interpretation. us Provider Not In System PhD IMG OUTSIDE IMAGING W /OUT INTERPRETATION Final Result documented in this encounter Visit Diagnoses Not on filedocumented in this encounter Care Teams Denture Contour Wire Specialist Relationship Specialty Start Date End Date Regino Coleman MD [address] [place] [address] PCP - General Internal Medicine 04/29/18 04/04/25 rJ Hogue MD [address] [place] [address] PCP - General Internal Medicine 04/05/25 08/07/25 Chicho Hargrove MD [address] [place] [address] PCP - General Internal Medicine 08/08/25 Fallon Dillard MD [address] [place] [address] [email or web address] Referring Physician Hematology and Oncology 04/29/18 documented as of this encounter Additional Source Comments The information contained in this document represents components of the legal health record. It is not the complete legal health record.[facility]
--- OUTSIDE RECORDS SUMMARY | 2025-09-12 10:12 | XMS_ITS | Encounter Summary ---
Author Organization [facility] Address [address] [place] [address] Phone Care Team Providers Care Crop Insurance Claims Adjuster Name Role Phone Regino Coleman MD Primary Care Provider Fallon Dillard MD Unavailable [phone] Jr Hogue MD Primary Care Provid er Chicho Hargrove MD Primary Care Provider [phone] Encounter Details Date Type Department Care Team (Late st Contact Info) Description 06/15/2019 Procedure Pass [facility] MR Imaging, Black [address] [place] [address] Social History Tobacco Use Types Packs/Day Years [...] on filedocumented in this encounter Care Teams Crop Insurance Claims Adjuster Relationship Specialty Start Date End Date Regino Coleman MD [address] [place] [address] Dr Greenke RICKY [address] PCP - General Internal Medicine 04/29/18 04/04/25 Jr Hogue MD [address] Rob [address] [place] [address] PCP - General Internal Medicine 04/05/25 08/07/25 Chicho Hargrove MD [address] [place] [address] [address] PCP - General Internal Medicine 08/08/25 Fallon Dillard MD [address] [place] [address] [email or web address] Referring Physician Hematology and Oncology 04/29/18 documented as of this encounter Additional Source Comments The information contained in this document represents components of the legal health record. It is not the complete legal health record.[facility]
--- OUTSIDE RECORDS SUMMARY | 2025-09-12 10:12 | XMS_ITS | Encounter Summary ---
Author Organization [facility] Address [address] [place] [address] Phone Care Team Providers Care Mold Maker Apprentice Name Role Phone Regino Coleman MD Primary Care Provider Fallon Dillard MD Unavailable [phone] Jr Hogue MD Primary Care Provid er Chicho Hargrove MD Primary Care Provider Encounter Details Date Type Department Care Team (Late st Contact Info) Description 07/02/2020 Procedure Pass [facility], [address] [address] Social History Tobacco Use Types Packs/Day Years [...] on filedocumented in this encounter Care Teams Mold Maker Apprentice Relationship Specialty Start Date End Date Regino Coleman MD [address] [place] [address] [place] [address] PCP - General Internal Medicine 04/29/18 04/04/25 Jr Hogue MD [facility] [address] Rob [address] [place] [address] PCP - General Internal Medicine 04/05/25 08/07/25 Chicho Hargrove MD [address] [place] [address] [address] PCP - General Internal Medicine 08/08/25 Fallon Dillard MD [address] [place] [address] [email or web address] Referring Physician Hematology and Oncology 04/29/18 documented as of this encounter Additional Source Comments The information contained in this document represents components of the legal health record. It is not the complete legal health record.[facility]
--- OUTSIDE RECORDS SUMMARY | 2025-09-12 10:12 | XMS_ITS | Encounter Summary ---
Author Organization [facility] Address [address] [place] [address] Phone Care Team Providers Care Public Address System Mechanic Name Role Phone Regino Coleman MD Primary Care Provider Fallon Dillard MD Unavailable [phone] Jr Hogue MD Primary Care Provid er Chicho Hargrove MD Primary Care Provider Encounter Details Date Type Department Care Team (Late st Contact Info) Description 07/07/2022 Procedure Pass [facility], [address] [address] Social History Tobacco Use Types Packs/Day Years [...] on filedocumented in this encounter Care Teams Public Address System Mechanic Relationship Specialty Start Date End Date Regino Coleman MD [address] [place] [address] Dr Jones RICKY [address] PCP - General Internal Medicine 04/29/18 04/04/25 Jr Hogue MD [address] [place] [address] Drive Rob [address] [place] [address] PCP - General Internal Medicine 04/05/25 08/07/25 Chicho Hargrove MD [address] [place] [address] [address] PCP - General Internal Medicine 08/08/25 Fallon Dillard MD [address] [place] [address] [email or web address] Referring Physician Hematology and Oncology 04/29/18 documented as of this encounter Additional Source Comments The information contained in this document represents components of the legal health record. It is not the complete legal health record.[facility]
--- OUTSIDE RECORDS SUMMARY | 2025-09-12 10:12 | XMS_ITS | Encounter Summary ---
Author Organization [facility] Address [address] [place] [address] Phone Care Team Providers Care Awning Spreader Name Role Phone Regino Coleman MD Primary Care Provider Fallon Dillard MD Unavailable [phone] Jr Hogue MD Primary Care Provid er Chicho Hargrove MD Primary Care Provider [phone] Encounter Details Date Type Department Care Team (Late st Contact Info) Description 06/16/2018 Procedure Pass [facility] Periop [address] [place] [address] Social History Tobacco Use Types Packs/Day Years [...] on filedocumented in this encounter Care Teams Awning Spreader Relationship Specialty Start Date End Date Regino Coleman MD [address] [place] [address] Dr Jones RICKY [address] PCP - General Internal Medicine 04/29/18 04/04/25 Jr Hogue MD [address] Rob [address] [place] [address] PCP - General Internal Medicine 04/05/25 08/07/25 Chicho Hargrove MD [address] [facility] [address] [address] PCP - General Internal Medicine 08/08/25 Fallon Dillard MD [address] [place] [address] [email or web address] Referring Physician Hematology and Oncology 04/29/18 documented as of this encounter Additional Source Comments The information contained in this document represents components of the legal health record. It is not the complete legal health record.[facility]
--- OUTSIDE RECORDS SUMMARY | 2025-09-12 10:12 | XMS_ITS | Encounter Summary ---
Author Organization [facility] Address [address] [place] [address] Phone Care Team Providers Care Knitting Teacher Name Role Phone Regino Coleman MD Primary Care Provider Fallon Dillard MD Unavailable [phone] Jr Hogue MD Primary Care Provid er Chicho Hargrove MD Primary Care Provider [phone] Encounter Details Date Type Department Care Team (Late st Contact Info) Description 01/05/2019 Procedure Pass [facility] MR Imaging, [place] [address] [place] [address] Social History Tobacco Use Types Packs/Day Years [...] on filedocumented in this encounter Care Teams Knitting Teacher Relationship Specialty Start Date End Date Regino Coleman MD [address] [place] [address] Dr Greenke RICKY [address] PCP - General Internal Medicine 04/29/18 04/04/25 Jr Hogue MD [address] [facility] [address] Rob [address] [place] [address] PCP - General Internal Medicine 04/05/25 08/07/25 Chicho Hargrove MD [address] [place] [address] [address] [address] PCP - General Internal Medicine 08/08/25 Fallon Dillard MD [address] [place] [address] [email or web address] Referring Physician Hematology and Oncology 04/29/18 documented as of this encounter Additional Source Comments The information contained in this document represents components of the legal health record. It is not the complete legal health record.[facility]
--- OUTSIDE RECORDS SUMMARY | 2025-09-12 10:12 | XMS_ITS | Encounter Summary ---
Author Organization [facility] Address [address] [place] [address] Phone Care Team Providers Care Sql Consultant Name Role Phone Regino Coleman MD Primary Care Provider Fallon Dillard MD Unavailable [phone] Jr Hogue MD Primary Care Provid er Chicho Hargrove MD Primary Care Provider Encounter Details Date Type Department Care Team (Late st Contact Info) Description 05/11/2022 Procedure Pass [facility], [address] [address] Social History Tobacco Use Types Packs/Day Years [...] on filedocumented in this encounter Care Teams Sql Consultant Relationship Specialty Start Date End Date Regino Coleman MD [address] [place] [address] Dr Jones RICKY [address] PCP - General Internal Medicine 04/29/18 04/04/25 Jr Hogue MD [address] [place] [address] Drive Rob [address] [place] [address] PCP - General Internal Medicine 04/05/25 08/07/25 Chicho Hargrove MD [address] [place] [address] [address] PCP - General Internal Medicine 08/08/25 Fallon Dillard MD [address] [place] [address] [email or web address] Referring Physician Hematology and Oncology 04/29/18 documented as of this encounter Additional Source Comments The information contained in this document represents components of the legal health record. It is not the complete legal health record.[facility]
--- OUTSIDE RECORDS SUMMARY | 2025-09-12 10:12 | XMS_ITS | Encounter Summary ---
Author Organization [facility] Address [address] [place] [address] Phone Care Team Providers Care Director Of Teacher Education Name Role Phone Regino Coleman MD Primary Care Provider Fallon Dillard MD Unavailable [phone] Jr Hogue MD Primary Care Provid er Chicho Hargrove MD Primary Care Provider Encounter Details Date Type Department Care Team (Late st Contact Info) Description 06/10/2021 Ancillary Orders [facility],Outside Imaging [address] [place], [place] [phone] System, Provider Not In, [place] [address] Social History Tobacco Use Types Packs/Day Years [...] on filedocumented in this encounter Care Teams Director Of Teacher Education Relationship Specialty Start Date End Date Regino Coleman MD [address] [place] [address] PCP - General Internal Medicine 04/29/18 04/04/25 Jr Hogue MD [address] [place] [address] PCP - General Internal Medicine 04/05/25 08/07/25 Chicho Hargorve MD [address] [place] [address] PCP - General Internal Medicine 08/08/25 Fallon Dillard MD [address] [place] [address] [email or web address] Referring Physician Hematology and Oncology 04/29/18 documented as of this encounter Additional Source Comments The information contained in this document represents components of the legal health record. It is not the complete legal health record.[facility]
--- OUTSIDE RECORDS SUMMARY | 2025-09-12 10:12 | XMS_ITS | Encounter Summary ---
Author Organization [facility] Address [address] [place] [address] Phone Care Team Providers Care Echo Technician Name Role Phone Regino Coleman MD Primary Care Provider Fallon Dillard MD Unavailable [phone] Jr Hogue MD Primary Care Provid er Chicho Hargrove MD Primary Care Provider Encounter Details Date Type Department Care Team (Late st Contact Info) Description 06/10/2021 Ancillary Orders [facility],Outside Imaging [address] [place], [place] [phone] System, Provider [place] In, [place] [address] Social History Tobacco Use Types Packs/Day Years [...] on filedocumented in this encounter Care Teams Echo Technician Relationship Specialty Start Date End Date Regino Coleman MD [address] [place] [address] PCP - General Internal Medicine 04/29/18 04/04/25 Jr Hogue MD [address] [place] [address] PCP - General Internal Medicine 04/05/25 08/07/25 Chicho Hargrove MD [address] [place] [address] PCP - General Internal Medicine 08/08/25 Fallon Dillard MD [address] [place] [address] [email or web address] Referring Physician Hematology and Oncology 04/29/18 documented as of this encounter Additional Source Comments The information contained in this document represents components of the legal health record. It is not the complete legal health record.[facility]
--- OUTSIDE RECORDS SUMMARY | 2025-09-12 10:13 | XMS_ITS | Clinical Summary ---
Author Organization [facility] Address [address] [place] [address] Phone Care Team Providers Care Leather Goods Assembler Name Role Phone Fallon Dillard MD Unavailable [phone] Chicho Hargrove MD Primary Care Provider [...] with hand surgeon Dr. Mary Boss in [place] Regular use of meloxicam previously effective, but [...] of kidney cancer 06/16/2018 Assessment & Plan (09/04/2025 11:59 AM EST): Assessment: Rebekah Hahn is a 69 y.o. female who is 7 years status post a left laparoscopic radical nephrectomy (06/16/18) for the management of pT3a N0 chromophobe renal cell carcinoma. She has no evidence of disease recurrence based on surveillance imaging (08/08/25). She has good performance status and normal renal function. Plan: Return in 1 year with repeat surveillance imaging consisting of chest X-ray and MRI abdomen. She will also have her renal function assessed at that time with a basic metabolic panel. Continue to see Gastroenterology regarding the incidentally detected pancreatic lesion. Assessment & Plan (08/15/2024 8:39 AM EST): [...] will continue to follow up with her solidworks designer to optimize renal function. Assessment & Plan [...] will continue to follow up with her solidworks designer to optimize renal function. Assessment & Plan [...] pathology by [facility], Department of Pathology suggests that [...] Encounters Date Type Department Care Team Description 09/04/2025 11:50 AM EST Telemedicine [facility] Urology [address] [facility] ASB[address] [place] [address] Ayaan Corrales MD Personal history of kidney cancer (Primary Dx) 08/08/2025 9:34 AM EDT - 08/08/2025 11:59 PM EDT Hospital Encounter [facility], X-Ray - [address] [place] [address] Ayaan Corrales MD Discharge Disposition: Home or Self Care 08/08/2025 9:34 AM EDT - 08/08/2025 11:59 PM EDT Hospital Encounter [address] [place] [address] Ayaan Corrales MD Discharge Disposition: Home or Self Care 08/07/2025 1:54 PM EDT - 08/07/2025 11:59 PM EDT Hospital Encounter [facility] [address] [place] [address] Ayaan Corrales MD Discharge Disposition: Home or Self Care 08/15/2024 Procedure Pass [address] [place] [address] from Last 3 Months Immunizations Immunization Administration [...] 07/31/2025 6:09 PM EDT Plan of Treatment Health Maintenance Due Date Last Done Comments LIPID PANEL 1954 DEPRESSION SCREENING 1966 HEPATITIS C SCREENING 1972 MAMMOGRAM 1994 COLOGUARD 1999 COLONOSCOPY 1999 COLORECTAL CANCER SCREENING 1999 FIT TEST 1999 FOBT 1999 SIGMOIDOSCOPY 1999 VIRTUAL COLONOSCOPY 1999 ZOSTER VACCINES (1 of 2) 2004 OSTEOPOROSIS SCREENING INITIAL (ONE-TIME) 2019 COVID-19 VACCINE ( season) 2025 06/26/2025, 03/09/2025, 08/25/2024, Additional history exists Adult Td,Tdap Booster 05/01/2033 05/01/2023 RSV VACCINE Completed 09/27/2023 PNEUMOCOCCAL VACCINES (50+ years) Completed 03/09/2025, 12/29/2019 SMOKING STATUS SCREENING (Once After 26 Yrs) Completed 04/05/2025 INFLUENZA VACCINE Completed 06/26/2025, , 07/19/2018, Additional history exists HEPATITIS A VACCINES Aged Out No long [...] sidebranchIPMN. Attention to follow up is recommended. us Ayaan Corrales MD IMG MR ABDOMEN Final Result * XR CHEST PA AND LATERAL 2 VIEWS (08/08/2025 11:11 AM EDT) Anatomical Region Laterality Modality Chest Computed Radiogr aphy 08/08/2025 12:0 5 PM EDT Impressions 08/08/2025 12:06 PM EDT No acute findings. Narrative 08/08/2025 12:06 PM EDT XR CHEST PA AND LATERAL 2 VIEWS Referring clinician's provided indication for this examination in [facility]: Urologic cancer, surveillance; History of kidney [...] clinician's provided indication for this examination in [facility]:Urologic cancer, surveillance; History of kidney cancer [...] EDT) SODIUM 139 133 - 146 mmol/L [facility] CHLORIDE 103 96 - 108 mmol/L [facility] POTASSIUM 4.5 3.3 - 5.1 mmol/L [facility] CO2 23 21 - 35 mmol/L [facility] BUN 10 6 - 19 mg/dL [facility] CREATININE 1.00 0.5 - 1.5 mg/dL [facility] GLUCOSE 130(H) 70 - 99 mg/dL [facility] CALCIUM 9.7 8.4 - 10.3 mg/dL [facility] EGFR 61 >59 mL/min/1.7 3m2 [facility] Comment:Estimated glomerular filtration rate calculated using the CKD-EPI refit equation. ANION GAP 18 10 - 20 mmol/L [facility] Blood 08/07/2025 2:18 PM EDT 08/07/2025 2:21 PM EDT Ayaan Corrales MD LAB BLOOD BKR ORDERABLES Final Result Performing Organization Address City/State/[facility] Co de Phone Number [facility] [address] [place] [address] from Last 3 Months Insurance MEDICARE PART A & B [facility] MEDICARE SUPPLEMENT MEDICARE PART A & B [facility] MEDIC[facility] SUPPLE[facility] MEDICARE PART A & B [facility] MEDICARE SUPPLEMENT MEDICARE PART A & B [facility] MEDICARE SUPPLEMENT MEDICARE PART A & B [employer] MEDICARE SUPPLEMENT MEDICARE PART A & B [employer] MEDICARE SUPPLEMENT MEDICARE PART A & B [facility] [employer] MEDICARE SUPPLEMENT MEDICARE PART A & B [facility] MEDICARE SUPPLEMENT MEDICARE PART A & B [facility] [employer] MEDICARE SUPPLEMENT Advance Directives For more information, please contact: [phone] (9AM - 5PM Vivien/[facility], Wednesday-Wednesday) Documents on File Type Date Recorded Patient Weatherseal Technician Expl anation Healthcare Proxy 06/09/2018 10:59 AM 09-19 * Full Code (Presumed) (Latest Code Status on File) Date Activated Date Inactivated Comments 06/16/2018 1:39 PM 06/18/2018 3:12 PM Healthcare Agents on File Name Relationship Healthcare Agent Relationship Communication Orlin Hahn Spouse .Primary Health Care Agent (Proxy form on file) Care Teams Leather Goods Assembler Relationship Specialty Start Date End Date Chicho Hargrove MD [address] [place] [address] [place] [address] PCP - General Internal Medicine 08/08/25 Fallon Dillard MD [address] [place] [address] [email or web address] Referring Physician Hematology and Oncology 04/29/18 Additional Source Comments The information contained in this document represents components of the legal health record. It is not the complete legal health record.[facility]
--- OUTSIDE RECORDS SUMMARY | 2025-09-12 10:13 | XMS_ITS | Encounter Summary ---
Author Organization [facility] Address [address] [place] [address] Phone Care Team Providers Care Group Leader Wafer Polishing Name Role Phone Regino Coleman MD Primary Care Provider Fallon Dillard MD Unavailable [phone] Jr Hogue MD Primary Care Provid er Chicho Hargrove MD Primary Care Provider [phone] Encounter Details Date Type Department Care Team (Late st Contact Info) Description 08/15/2024 Procedure Pass [address] [place] [address] Social History Tobacco Use Types Packs/Day Years [...] on filedocumented in this encounter Care Teams Group Leader Wafer Polishing Relationship Specialty Start Date End Date Regino Coleman MD [address] [place] [address] PCP - General Internal Medicine 04/29/18 04/04/25 Jr Hogue MD [address] [place] [address] PCP - General Internal Medicine 04/05/25 08/07/25 Chicho Hargrove MD [address] [place] [address] PCP - General Internal Medicine 08/08/25 Fallon Dillard MD [address] [place] [address] [email or web address] [employer] Referring Physician Hematology and Oncology 04/29/18 documented as of this encounter Additional Source Comments The information contained in this document represents components of the legal health record. It is not the complete legal health record.[facility]
== END 2025-09-12 09:46 | disposition home or self-care (01) ==
PROVIDERS: PCP Student in an Organized Health Care Education/Training Program; Visit Provider Student in an Organized Health Care Education/Training Program
DX: R05.3 Chronic cough (principal); M19.90 Unspecified osteoarthritis, unspecified site; G43.009 Migraine without aura, not intractable, without status migrainosus; K58.2 Mixed irritable bowel syndrome; N18.32 Chronic kidney disease, stage 3b; Z90.5 Acquired absence of kidney; K21.9 Gastro-esophageal reflux disease without esophagitis

== ENCOUNTER → 2025-09-12 09:22 | Outpatient (BNVA) | payer MEDICARE, OTHER, SELFPAY | PROVIDERS: PCP Internal Medicine; Visit Provider Student in an Organized Health Care Education/Training Program | DX: R05.3 Chronic cough (principal); M19.90 Unspecified osteoarthritis, unspecified site; G43.009 Migraine without aura, not intractable, without status migrainosus; N18.32 Chronic kidney disease, stage 3b; K58.2 Mixed irritable bowel syndrome; K21.9 Gastro-esophageal reflux disease without esophagitis; Z90.5 Acquired absence of kidney; Z79.899 Other long term (current) drug therapy | CPT/HCPCS: 99212 ==

== ENCOUNTER 2025-09-17 08:44 | Outpatient (RCR) | payer MEDICARE, OTHER, SELFPAY ==
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
--- NOTE | 2025-09-17 10:00 | MHC.PT.DC ---
[facility] [place] Office [place] Office [place] Office [address] Chanell Leija [address] [phone] F: [phone] F: [phone] F: [phone] F: [phone] Physical Therapy Discharge Report Diagnosis: AC Jt ARTHRITISBICIPITAL TENDINITIS , RIGHT SHOULDER-> ROM AND STRENGTHENING, SCAP STAB Date of Surgery: Date of Evaluation: 08/02/25 Date of Discharge: 09/17/25 Treatments to Date: 8 Cancellations to Date: 2 No Shows to Date: Discharge Status: Achieved Goals Improved Function Independent with HEP Patient Elected to Stop Discharge Summary: CORDELL HAS PROGRESSED VERY NICELY IN PT, ADDRESSING HER Rt SH PAIN AND IMPROVING HER OVERALL ADL/ FUNCTIONAL MOB MARIA E- SHE HAS MET HER PT GOALS EVIDENT W IMPROVED Rt SH ROM AND STRENGTH, INDEP POSTURAL CORRECTION, AND HER SPADI SCORE IMPROVED FROM A 69/130 AT EVAL TO 9/130 AT D/C. HER SUBJECTIVE PAIN RANGES FROM 0 TO 2-3/10 . Electronically signed by: BETTIE DUBOSE,PT Please sign and return to therapist. Thank you for your referral.
== END 2025-09-17 10:01 | disposition home or self-care (01) ==
LOC: HO.PT 08:44
PROVIDERS: PCP Internal Medicine
DX: M75.21 Bicipital tendinitis, right shoulder (principal)
CPT/HCPCS: 97110; 97140; 97162; 97530

== ENCOUNTER 2025-09-19 14:16 | Outpatient (AMB) | payer MEDICARE, OTHER, SELFPAY ==
--- OUTSIDE RECORDS SUMMARY | 2024-07-03 04:15 | XMS_ITS ---
Author Organization [facility] Address [address] [place] [address] Care Team Providers Care Sign Builder Name Role Phone Chicho Fraser Primary Care Provider UnavailAye Alva [phone] Encounters Encounter Location Date Provider Diagnosis [address] [address] 07/03/2024 Aye Bliss Plan Of Treatment Next Appt Details Provider Name:Aye Bliss , 12/24/2025 01:45:00 PM, [address] [place] [address], [phone], Progress Notes * Alexander HAHNeDOB: [birth year] (69 yo F)Acc No.[id number]:07/03/2024 Progress Note Patient: Rebekah POLO Provider: Alicja Bliss DPM :1955 A ge:68 Y S ex:Female Date:07/03/2024 Address:[address] [place] [phone] Pcp:Chicho Fraser Subjective: * Chief Complaints: * [...] 07/03/2024 Generated for Chandler Ortega/Nirav on: 1 11/20/2024 10:27 PM EST
--- OUTSIDE RECORDS SUMMARY | 2024-12-11 03:15 | XMS_ITS ---
Author Organization [facility] Address [address] [place] [address] Care Team Providers Care Delivery Room Supervisor Name Role Phone Chicho Fraser Primary Care Provider Unavailabl e Black, Aye Unavailable [phone] Allergies Allergen (clinical drug ingredient) Drug/Non Drug [...] Negative Encounters Encounter Location Date Provider Diagnosis [facility] [address] [address] 12/11/2024 Aye Bliss Plan Of Treatment Next Appt Details Provider Name:Aye Bliss , 12/24/2025 01:45:00 PM, [address] [place], [address], Progress Notes * Alexander HAHNeDOB: [birth year] (69 yo F)Acc No.[id number]:12/11/2024 Progress Note Patient: Rebekah POLO Provider: Alicja Bliss DPM :1955 A ge:69 Y S ex:Female Date:12/11/2024 Address:[address] [place] [address] Pcp:Chicho Fraser Subjective: * Chief Complaints: * * ROS: [...] denies.? C ardiovascular: Pacemaker d enies. M MEAT COUNTER WORKER a dmits. W PW d enies. C [...] eakness d enies. P odiatric: Comments S [facility] for comments. I nteg.: Marques d enies. [...] , Notes to Pharmacist: once a day, Not- Taking/PRN Gabapentin , Not-Taking/PRN Letrozole 2.5 MG Tablet [...] 0 12/11/2024 Generated for Chandler bentley/Brennon/Nirav on: 1 11/20/2024 10:26 PM EST
--- OUTSIDE RECORDS SUMMARY | 2025-07-04 03:30 | XMS_ITS ---
Author Organization [facility] Address [address] [place] [address] Care Team Providers Care Color Print Inspector Name Role Phone DESHAUN OROURKE Primary Care Provider Amilcar Santiago [phone] REASON FOR VISIT gerd,IBS,change in bowel habits Encounters Encounter Location Date Provider Diagnosis [facility] [place] Out[place] [address] [place] [id number] 07/04/2025 Amilcar Sosa Plan Of Treatment Next Appt Details Provider Name:Amilcar Sosa , 09/27/2025 09:00:00 AM, [address] [place] [address], [address], [place], [address], Progress Notes * CORDELL COVARRUBIAS EDOB:[birth year] (69 yo F)Acc No.[id number]:07/04/2025 EGD and COL/MAC Patient: Kimberly CORDELL AHN Provider: Gary Sosa MD :1955 A ge:69 Y S ex:Female Date:07/04/2025 Address:[address] [id number] Pcp:DESHAUN OROURKE Subjective: * Chief Complaints: * g erd,IBS,change in bowel habits Billing Information: * Procedure Codes: * The named appointment provid er may or may not be the originator of this progress note, and it is not deemed complete until electronically signed by the appointment provider. Sign off status: Pending * Provider: Gary Sosa MD Date: 0 07/04/2025 Generated for Chandler bentley/Brennon/Nirav on: 1 11/20/2024 10:27 PM EST
--- OUTSIDE RECORDS SUMMARY | 2025-08-27 03:15 | XMS_ITS ---
Author Organization [facility] Address [address] [place] [address] Care Team Providers Care Recreation Supervisor Name Role Phone Chicho Fraser Primary Care Provider Unavailabl Aye Foster Unavailable [phone] Russ Encounters Encounter Location Date Provider Diagnosis [address] [address] 08/27/2025 Aye Bliss Plan Of Treatment Next Appt Details Provider Name:Aye A Izaiah , 12/24/2025 01:45:00 PM, [address] [place] [address], [phone], Progress Notes * Alexander HAHNeDOB: [birth year] (69 yo F)Acc No.[id number]:08/27/2025 Progress Note Patient: Rebekah POLO Provider: Alicja Bliss DPM :1955 A ge:69 Y S ex:Female Date:08/27/2025 Address:[address] [place] [address] Pcp:Chicho Fraser Subjective: * Chief Complaints: * [address] * Medical History: Objective: * Vitals: Assessment: Plan: * Treatment: * Images: * The named appointment provid er may or may not be the originator of this progress note, and it is not deemed complete until electronically signed by the appointment provider. Sign off status: Pending * Provider: Alicja Bliss DPM Date: 1 10/27/2024 Generated for Chandler Curtis on: 11/20/2024 10:28 PM EST
--- OUTSIDE RECORDS SUMMARY | 2025-09-19 22:26 | XMS_ITS | Encounter Summary ---
Author Organization [facility] Address [address] [place] [address] Phone Care Team Providers Care Upper Cutter Machine Name Role Phone Regino Coleman MD Primary Care Provider Fallon Dillard MD Unavailable [phone] Jr Hogue MD Primary Care Provid er Chicho Hargrove MD Primary Care Provider [phone] Encounter Details Date Type Department Care Team (Late st Contact Info) Description 06/16/2018 Procedure Pass [facility] Periop [address] [place] [address] Social History Tobacco Use Types Packs/Day Years [...] on filedocumented in this encounter Care Teams Upper Cutter Machine Relationship Specialty Start Date End Date Regino Coleman MD [address] [place] [address] Dr Jones RICKY [address] PCP - General Internal Medicine 04/29/18 04/04/25 Jr Hogue MD [address] [place] [address] PCP - General Internal Medicine 04/05/25 08/07/25 Chicho Hargrove MD [address] [facility] [address] [address] PCP - General Internal Medicine 08/08/25 Fallon Dillard MD [address] [place] [address] [email or web address] Referring Physician Hematology and Oncology 04/29/18 documented as of this encounter Additional Source Comments The information contained in this document represents components of the legal health record. It is not the complete legal health record.[facility]
--- OUTSIDE RECORDS SUMMARY | 2025-09-19 22:26 | XMS_ITS | Encounter Summary ---
Author Organization [facility] Address [address] [place] [address] Phone Care Team Providers Care Rn Oncology Name Role Phone Regino Coleman MD Primary Care Provider Fallon Dillard MD Unavailable [phone] Jr Hogue MD Primary Care Provid er Chicho Hargrove MD Primary Care Provider Encounter Details Date Type Department Care Team (Late st Contact Info) Description 05/11/2022 Procedure Pass [facility], [address] [address] Social History Tobacco Use Types Packs/Day Years [...] on filedocumented in this encounter Care Teams Rn Oncology Relationship Specialty Start Date End Date Regino Coleman MD [address] [place] [address] Dr Jones RICKY [address] PCP - General Internal Medicine 04/29/18 04/04/25 Jr Hogue MD [address] [place] [address] Drive Rob [address] [place] [address] PCP - General Internal Medicine 04/05/25 08/07/25 Chicho Hargrove MD [address] [place] [address] [address] PCP - General Internal Medicine 08/08/25 Fallon Dillard MD [address] [place] [address] [email or web address] Referring Physician Hematology and Oncology 04/29/18 documented as of this encounter Additional Source Comments The information contained in this document represents components of the legal health record. It is not the complete legal health record.[facility]
--- OUTSIDE RECORDS SUMMARY | 2025-09-19 22:26 | XMS_ITS | Encounter Summary ---
Author Organization [facility] Address [address] [place] [address] Phone Care Team Providers Care Neonatal Intensive Care Nurse Name Role Phone Regino Coleman MD Primary Care Provider Fallon Dillard MD Unavailable [phone] Jr Hogue MD Primary Care Provid er Chicho Hargrove MD Primary Care Provider Encounter Details Date Type Department Care Team (Late st Contact Info) Description 05/24/2018 Procedure Pass [facility] OUT[facility]IDE [facility]G [address] [place] [address] Social History Tobacco Use Types Packs/Day Years [...] on filedocumented in this encounter Care Teams Neonatal Intensive Care Nurse Relationship Specialty Start Date End Date Regino Coleman MD [address] [place] [address] Dr DYER RICKY [place]onson [address] PCP - General Internal Medicine 04/29/18 04/04/25 Jr Hogue MD [address] Rob [address] [place] [address] PCP - General Internal Medicine 04/05/25 08/07/25 Chicho Hargrove MD [address] [place] [address] PCP - General Internal Medicine 08/08/25 Fallon Dillard MD [address] [place] [address] [email or web address] Referring Physician Hematology and Oncology 04/29/18 documented as of this encounter Additional Source Comments The information contained in this document represents components of the legal health record. It is not the complete legal health record.[facility]
--- OUTSIDE RECORDS SUMMARY | 2025-09-19 22:27 | XMS_ITS | Encounter Summary ---
Author Organization [facility] Address [address] [place] [address] Phone Care Team Providers Care Spindraw Operator Name Role Phone Regino Coleman MD Primary Care Provider [phone] Encounter Details Date Type Department Care Team (Late st Contact Info) Description 01/06/2023 Telephone [facility] [address] [place] [address] Ying Medrano Social History Tobacco [...] appt w/ [facility] and fax order to [facility] and they will call and book sooner appt. Pt stated that she is going to see her information broker in 2 weeks and her MD stated she will do th US in office. Pls advise if you would like her information broker to do US or move forward with the hospital. Her information broker does not have a radiology department. * Telephone Encounter - Ying Medrano - 01/06/2023 9:51 AM EDT PT says she has renal ultrasound scheduled for 03/01/23. PT wants to be seen sooner, she is asking for an earlier appointment and is willing to commute to [place] if she can get a sooner appointment. documented in this encounter Plan of Treatment Not on file documented as of this encounter Visit Diagnoses Not on filedocumented in this encounter Care Teams Spindraw Operator Relationship Specialty Start Date End Date Regino Coleman MD [address] [place] [address] DR[address] [place] PCP - General 10/21/20 documented as of this encounter
--- OUTSIDE RECORDS SUMMARY | 2025-09-19 22:27 | XMS_ITS | Encounter Summary ---
Author Organization [facility] Address [address] [place] [address] Phone Care Team Providers Care Mail Handler Equipment Operator Name Role Phone Regino Coleman MD Primary Care Provider Fallon Dillard MD Unavailable [phone] Jr Hogue MD Primary Care Provid er Chicho Hargrove MD Primary Care Provider Encounter Details Date Type Department Care Team (Late st Contact Info) Description 06/10/2021 Ancillary Orders [facility],Outside Imaging [address] [place], [place] [id number] System, Provider Not In, [place] [address] Social History Tobacco Use Types Packs/Day Years [...] on filedocumented in this encounter Care Teams Mail Handler Equipment Operator Relationship Specialty Start Date End Date Regino Coleman MD [address] [place] [address] PCP - General Internal Medicine 04/29/18 04/04/25 Jr Hogue MD [address] [place] [address] PCP - General Internal Medicine 04/05/25 08/07/25 Chicho Hargrove MD [address] [place] [address] PCP - General Internal Medicine 08/08/25 Fallon Dillard MD [address] [place] [address] [email or web address] Referring Physician Hematology and Oncology 04/29/18 documented as of this encounter Additional Source Comments The information contained in this document represents components of the legal health record. It is not the complete legal health record.[facility]
--- OUTSIDE RECORDS SUMMARY | 2025-09-19 22:27 | XMS_ITS | Encounter Summary ---
Author Organization [facility] Address [address] [place] [address] Phone Care Team Providers Care Engineering Executive Name Role Phone Regino Coleman MD Primary Care Provider [phone] Encounter Details Date Type Department Care Team (Late st Contact Info) Description 11/25/2022 Telephone [facility] [address] [place] [address] Ying Medrano Social History Tobacco [...] called to relay that Dr. Reyes from [facility] had recently put a stent in [...] filedocumented in this encounter Care Teams Engineering Executive Relationship Specialty Start Date End Date Regino Coleman MD [address] [facility] [address] [place] PCP - General 10/21/20 documented as of this encounter
--- OUTSIDE RECORDS SUMMARY | 2025-09-19 22:27 | XMS_ITS | Encounter Summary ---
Author Organization [facility] Address [address] [place] [address] Phone Care Team Providers Care Tabulating Supervisor Name Role Phone Regino Coleman MD Primary Care Provider Fallon Dillard MD Unavailable [phone] Jr Hogue MD Primary Care Provid er Chicho Hargrove MD Primary Care Provider [phone] Encounter Details Date Type Department Care Team (Late st Contact Info) Description 04/27/2019 Procedure Pass [facility] MR Imaging, Black [address] [place] [address] Social History Tobacco Use Types Packs/Day Years [...] on filedocumented in this encounter Care Teams Tabulating Supervisor Relationship Specialty Start Date End Date Regino Coleman MD [address] [place] [address] Dr Greenke RICKY [address] PCP - General Internal Medicine 04/29/18 04/04/25 Jr Hogue MD [address] [facility] [address] Rob [address] [place] [address] PCP - General Internal Medicine 04/05/25 08/07/25 Chicho Hargrove MD [address] [place] [address] [address] PCP - General Internal Medicine 08/08/25 Fallon Dillard MD [address] [place] [address] [email or web address] Referring Physician Hematology and Oncology 04/29/18 documented as of this encounter Additional Source Comments The information contained in this document represents components of the legal health record. It is not the complete legal health record.[facility]
--- OUTSIDE RECORDS SUMMARY | 2025-09-19 22:27 | XMS_ITS | Patient Health Record ---
Author Organization [facility] Address [address] [place] [address] Care Team Providers Care Key Punch Teacher Name Role Phone DESHAUN OROURKE Primary Care Provider Amilcar Santiago Unavailable [phone] Allergies No Known Allergies Results Component Value Reference Range Notes Pathology (Not yet reviewed by provider) Interpretation: Performing Lab:[facility], [address] [place] [phone] Notes/Report: Reason For Referral No Information Medications Medication SIG (Take, Route, Frequency, Duration) Notes Start Date End Date Status Propranolol HCl 10 MG Tablet 1 tablet Orally once a day Active Calcium 1200 mg/100D3 Twice a day Active Flonase Active Multivitamin Active Alendronate Sodium 70 MG Tablet Oral; Duration: 84 Active Metamucil Active MiraLax Active Albuterol Sulfate HFA 108 (90 Base) MCG/ACT Aerosol Solution 1 puff as needed Inhalation every 4 hrs Active Atorvastatin Calcium 20 MG Tablet TAKE 1 TABLET BY MOUTH AT BEDTIME Oral; Duration: 90 Active traMADol HCl 50 MG Tablet TAKE 1 TABLET BY MOUTH TWICE DAILY NEEDED FOR MODERATE PAIN Oral; Duration: 15 Active Prilosec 20 MG Capsule Delayed Release 2 capsules Orally Once a day Active Immunizations Vaccine Route Administration Date Status Comme nts Influenza Unknown 07/11/2021 Administered Social History Social History Drugs/Alcohol: Social Info Question Answer Notes Alcohol Screen Did you have a drink containing alcohol in the past year? 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 Caffeine: 1-2 cups per day Section Notes: Nonsmoker; no sig alcohol Nonsmoker; no sig alcohol Nonsmoker; no sig alcohol Nonsmoker; no sig alcohol Nonsmoker; no sig alcohol Nonsmoker; no sig alcohol Problems Problem Type SNOMED Code ICD Code Onset Dates Problem Status W/U Status Risk Notes Problem Irritable bowel syndrome (49514725) Irritable bowel syndrome (K58.9) Active confirmed Problem Screening for malignant neoplasm of colon (435544017) Encounter for screening for malignant neoplasm of colon (Z12.11) Active confirmed Problem Diarrhea (90922015) Diarrhea (R19.7) Active con firmed Problem Change in bowel habit (65221883) Change in bowel habits (R19.4) Active confirmed Problem Screening for malignant neoplasm of rectum (794352338) Encounter for screening for malignant neoplasm of rectum (Z12.12) Active confirmed Problem Blood in stool (871116160) Blood in stool (K92.1) Active confirmed Problem Gastroesophageal reflux disease without esophagitis (788273172) Gastroesophageal reflux disease without esophagitis (K21.9) Active confirmed Problem Gastroesophageal reflux disease (659437942) Gastroesophageal reflux disease, esophagitis presence not specified (K21.9) Active confirmed Problem Pancreatic cyst (41017861) 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) Active confirmed Problem Constipation (61857890) Constipation, unspecified constipation type (K59.00) Active confirmed Problem Left lower quadrant pain (691022240) Abdominal pain, left lower quadrant (R10.32) Active confirmed Problem Gastroesophageal reflux disease (454273340) GERD (gastroesophageal reflux disease) (K21.9) Active confirmed Problem Irritable bowel syndrome characterized by constipation (196291380) Irritable bowel syndrome with constipation (K58.1) Active confirmed Problem Irritable bowel syndrome (91274689) Irritable bowel syndrome with both constipation and diarrhea (K58.2) Active confirmed Problem Thrombocytosis (disorder) (2061279) Thrombocytosis, unspecified (D75.839) Active confirmed Problem Neoplasm of digestive system (370609486) IPMN (intraductal papillary mucinous neoplasm) (D49.0) Active confirmed Vital Signs Blood pressure diastolic 77 mm Hg 04/03/2025 Height 64 in 04/03/2025 Blood pressure systolic 111 mm Hg 04/03/2025 Weight 136 lbs 04/03/2025 BMI 23.34 kg/m2 04/03/2025 Procedures Procedure Date Ordered Date Performed Result Body Sit e UPPER GI ENDOSCOPY 04/03/2025 N/A COLONOSCOPY 04/03/2025 N/A Encounters Encounter Location Date Provider Diagnosis [facility] Outpatient [address] [place], [place] [id number] 07/04/2025 Amilcar Sosa [facility] [address] [place] [phone] 09/28/2024 Amilcar Sosa Gastroesophageal ref lux disease, esophagitis presence not specified K21.9 ; Irritable bowel syndrome with constipation K58.1 ; Encounter for screening for malignant neoplasm of colon Z12.11 ; Constipation, unspecified constipation type K59.00 and Pancreatic cyst K86.2 [facility] [address] [address] 04/03/2025 Amilcar Sosa Change in bowel habi ts R19.4 ; Irritable bowel syndrome with both constipation and diarrhea K58.2 ; GERD (gastroesophageal reflux disease) K21.9 and IPMN (intraductal papillary mucinous neoplasm) D49.0 [facility] [address] [place] [phone] 09/28/2024 Amilcar Sosa [facility] [address] [address] 04/03/2025 Amilcar Sosa Assessments Encounter Date Diagnosis [...] will be having it done up at as it is ordered by her [place] [facility] in regard to the follow-up of [...] will be having it done up at as it is ordered by her [place] [facility] in regard to the follow-up of [...] keep you advised of her progress.. 04/03/2025 GERD (gastroesophageal reflux disease) (ICD-10 - [...] will be having it done up at as it is ordered by her [place] [facility] in regard to the follow-up of [...] will be having it done up at as it is ordered by her [place] [facility] in regard to the follow-up of [...] (ICD-10 - K86.2) Need MRI report from [facility] from 06/2024 Overall, Cordell appears well. [...] 09:00:00 AM, [address], [address], [place], [address], Insurance Providers Payer Name Payer Address Payer Phone Subscriber Number Group Number Insured Name Patient Relationship to Insured Coverage Start Date Coverage End Date [place] [address] [place] [address] [phone] [id number] CORDELL ORDAZ Self - patient is the insured [employer] ([employer]) [address] [place] [address] [id number] CORDELL ORDAZ Self - patient is the insured Medical (General) History Medical History History ICD Code Screening colonoscopy 05-24-2009--negativ e EGD 01-05-2002 and in 11/2016--small HH, n o esophagitis, no Hernandes's Asthma--presently asymptomatic 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 Dillard Mitral valve prolapse Lyme's disease/Fibromyalgia--Amitryptile ne and Gabapentin Migraines-on Propranolol Hyperlipidemia Arthritis in left foot--Meloxicam/Cortis one injections Denies [place],DM,CVA,renal disease Renal cancer with surgery in 06/2018 [...] [facility] by Dr. Corrales 06/2018 Partial hysterectomy and linnea dder suspension with complications of the right ureteral injury that needed stenting, then repeat laparoscopy for internal bleeding 11/18/2022 Incisional hernia repair x 2 in 2020 and 07/2023 prolapse/bladder 12/29/2024
--- OUTSIDE RECORDS SUMMARY | 2025-09-19 22:27 | XMS_ITS | Clinical Summary ---
Author Organization [facility] Address [address] [place] [address] Phone Care Team Providers Care Enterprise Data Architect Name Role Phone Fallon Dillard MD Unavailable [phone] Chicho Hargrove MD Primary Care Provider [...] conservative management Follows with hand surgeon Dr. aMry Boss in [place] Regular use of meloxicam previously effective, but [...] will continue to follow up with her plasterer stucco to optimize renal function. Assessment & Plan [...] will continue to follow up with her plasterer stucco to optimize renal function. Assessment & Plan [...] [facility], Department of Pathology suggests that it [...] Team Description 09/04/2025 11:50 AM EST Telemedicine [facility] Urology [address] [facility] [address] [place] [address] Ayaan Corrales MD Personal history of kidney cancer (Primary Dx) 08/08/2025 9:34 AM EDT - 08/08/2025 11:59 PM EDT Hospital Encounter [facility], X-Ray - [address] [place] [address] Ayaan Corrales MD Discharge Disposition: Home or Self Care 08/08/2025 9:34 AM EDT - 08/08/2025 11:59 PM EDT Hospital Encounter [address] [place] [address] Ayaan Corrales MD Discharge Disposition: Home or Self Care 08/07/2025 1:54 PM EDT - 08/07/2025 11:59 PM EDT Hospital Encounter [facility] [address] [place] [address] Ayaan Corrales MD Discharge Disposition: Home or Self Care 08/15/2024 Procedure Pass [address] [place] [address] from Last 3 Months Immunizations Immunization Administration [...] clinician's provided indication for this examination in [facility]: Urologic cancer, surveillance; History of kidney [...] clinician's provided indication for this examination in [facility]:Urologic cancer, surveillance; History of kidney cancer [...] EDT) SODIUM 139 133 - 146 mmol/L [facility] CHLORIDE 103 96 - 108 mmol/L [facility] POTASSIUM 4.5 3.3 - 5.1 mmol/L [facility] CO2 23 21 - 35 mmol/L [facility] BUN 10 6 - 19 mg/dL [facility] CREATININE 1.00 0.5 - 1.5 mg/dL [facility] GLUCOSE 130(H) 70 - 99 mg/dL [facility] CALCIUM 9.7 8.4 - 10.3 mg/dL [facility] EGFR 61 >59 mL/min/1.7 3m2 [facility] Comment:Estimated glomerular filtration rate calculated using the CKD-EPI refit equation. ANION GAP 18 10 - 20 mmol/L [facility] Blood 08/07/2025 2:18 PM EDT 08/07/2025 2:21 PM EDT Ayaan Corrales MD LAB BLOOD BKR ORDERABLES Final Result Performing Organization Address City/State/[facility] Co de Phone Number [facility] [address] [place] [address] from Last 3 Months Insurance MEDICARE PART A & B [facility] [employer] MEDICARE SUPPLEMENT MEDICARE PART A & B Member Subscriber Plan / Payer (Ef fective 2019-Present) Name:Rebekah Hahn Member ID:[id number] Relation to Subscriber:Self Name:Rebekah Hahn Subscriber ID:[id number] Payer ID:[id number] Group ID:Not on file Type:Medicare Address: [facility] [employer] [facility] [address] [place] [phone] [facility] MEDICARE SUPPLEMENT MEDICARE PART A & B [facility] MEDICARE SUPPLEMENT MEDICARE PART A & B [facility] MEDICARE SUPPLEMENT MEDICARE PART A & B [employer] MEDICARE SUPPLEMENT MEDICARE PART A & B [employer] MEDICARE SUPPLEMENT MEDICARE PART A & B Member Subscriber Plan / Payer (Ef fective 2019-Present) Name:Rebekah Hahn Stephen Member ID:[id number] Relation to Subscriber:Self Name:Rebekah Hahn Subscriber ID:[id number] Payer ID:[id number] Group ID:Not on file Type:Medicare Address: [facility] [employer] [address] [address] [facility] [employer]ENSION MEDICARE SUPPLEMENT MEDICARE PART A & B [facility] [employer] MEDICARE SUPPLEMENT MEDICARE PART A & B [facility] [employer] MEDICARE SUPPLEMENT Advance Directives For more information, please contact: [phone] (9AM - 5PM [facility], Wednesday-Wednesday) Documents on File Type Date Recorded Patient Lithographic Etcher Expl anation Healthcare Proxy 06/09/2018 10:59 AM 09-19 * Full Code (Presumed) (Latest Code Status on File) Date Activated Date Inactivated Comments 06/16/2018 1:39 PM 06/18/2018 3:12 PM Healthcare Agents on File Name Relationship Healthcare Agent Relationship Communication Orlin Hahn Spouse .Primary Health Care Agent (Proxy form on file) Care Teams Enterprise Data Architect Relationship Specialty Start Date End Date Chicho Hargrove MD [address] [place] [address] [place] [address] PCP - General Internal Medicine 08/08/25 Fallon Dillard MD [address] [place] [address] [email or web address] Referring Physician Hematology and Oncology 04/29/18 Additional Source Comments The information contained in this document represents components of the legal health record. It is not the complete legal health record.[facility]
--- OUTSIDE RECORDS SUMMARY | 2025-09-19 22:27 | XMS_ITS | Encounter Summary ---
Author Organization [facility] Address [address] [place] [address] Phone Care Team Providers Care Workforce Management Analyst Name Role Phone Regino Coleman MD Primary Care Provider Fallon Dillard MD Unavailable [phone] Jr Hogue MD Primary Care Provid er Chicho Hargrove MD Primary Care Provider Encounter Details Date Type Department Care Team (Late st Contact Info) Description 06/10/2021 Ancillary Orders [facility],Outside Imaging [address] [place], [place] [id number] System, Provider [place] In, [place] [address] Social History Tobacco Use Types Packs/Day Years [...] on filedocumented in this encounter Care Teams Workforce Management Analyst Relationship Specialty Start Date End Date Regino Coleman MD [address] [place] [address] PCP - General Internal Medicine 04/29/18 04/04/25 Jr Hogue MD [address] [place] [address] PCP - General Internal Medicine 04/05/25 08/07/25 Chicho Hargrove MD [address] [place] [address] PCP - General Internal Medicine 08/08/25 Fallon Dillard MD [address] [place] [address] [email or web address] Referring Physician Hematology and Oncology 04/29/18 documented as of this encounter Additional Source Comments The information contained in this document represents components of the legal health record. It is not the complete legal health record.[facility]
--- OUTSIDE RECORDS SUMMARY | 2025-09-19 22:27 | XMS_ITS | Encounter Summary ---
Author Organization [facility] Address [address] [place] [address] Phone Care Team Providers Care Advertising Job Titles Name Role Phone Regino Coleman MD Primary Care Provider Fallon Dillard MD Unavailable [phone] Jr Hogue MD Primary Care Provid er Chicho Hargrove MD Primary Care Provider Encounter Details Date Type Department Care Team (Late st Contact Info) Description 07/02/2020 Procedure Pass [facility], [address] [address] Social History Tobacco Use Types Packs/Day Years [...] on filedocumented in this encounter Care Teams Advertising Job Titles Relationship Specialty Start Date End Date Regino Coleman MD [address] [place] [address] Dr Jones RICKY [address] PCP - General Internal Medicine 04/29/18 04/04/25 Jr Hogue MD [facility] [address] Rob [address] [place] [address] PCP - General Internal Medicine 04/05/25 08/07/25 Chicho Hargrove MD [address] [place] [address] [address] PCP - General Internal Medicine 08/08/25 Fallon Dillard MD [address] [place] [address] [email or web address] Referring Physician Hematology and Oncology 04/29/18 documented as of this encounter Additional Source Comments The information contained in this document represents components of the legal health record. It is not the complete legal health record.[facility]
--- OUTSIDE RECORDS SUMMARY | 2025-09-19 22:27 | XMS_ITS | Encounter Summary ---
Author Organization [facility] Address [address] [place] [address] Phone Care Team Providers Care Foreign Service Teacher Name Role Phone Regino Coleman MD Primary Care Provider Fallon Dillard MD Unavailable [phone] Jr Hogue MD Primary Care Provid er Chicho Hargrove MD Primary Care Provider Encounter Details Date Type Department Care Team (Late st Contact Info) Description 06/10/2021 Ancillary Orders [facility],Outside Imaging [address] [place], [place] [id number] System, Provider [place] In, [place] [address] Social History Tobacco Use Types Packs/Day Years [...] on filedocumented in this encounter Care Teams Foreign Service Teacher Relationship Specialty Start Date End Date Regino Coleman MD [address] [place] [address] PCP - General Internal Medicine 04/29/18 04/04/25 Jr Hogue MD [address] [place] [address] PCP - General Internal Medicine 04/05/25 08/07/25 Chicho Hargrove MD [address] [place] [address] PCP - General Internal Medicine 08/08/25 Fallon Dillard MD [address] [place] [address] [email or web address] Referring Physician Hematology and Oncology 04/29/18 documented as of this encounter Additional Source Comments The information contained in this document represents components of the legal health record. It is not the complete legal health record.[facility]
--- OUTSIDE RECORDS SUMMARY | 2025-09-19 22:27 | XMS_ITS | Encounter Summary ---
Author Organization [facility] Address [address] [place] [address] Phone Care Team Providers Care Physical Optics Teacher Name Role Phone Regino Coleman MD Primary Care Provider Fallon Dillard MD Unavailable [phone] Jr Hogue MD Primary Care Provid er Chicho Hargrove MD Primary Care Provider [phone] Encounter Details Date Type Department Care Team (Late st Contact Info) Description 08/15/2024 Procedure Pass [address] [place] [address] Social History Tobacco Use Types Packs/Day Years [...] on filedocumented in this encounter Care Teams Physical Optics Teacher Relationship Specialty Start Date End Date Regino Coleman MD [address] [place] [address] PCP - General Internal Medicine 04/29/18 04/04/25 Jr Hogue MD [address] [place] [address] PCP - General Internal Medicine 04/05/25 08/07/25 Chicho Hargrove MD [address] [place] [address] PCP - General Internal Medicine 08/08/25 Fallon Dillard MD [address] [place] [address] [email or web address] Referring Physician Hematology and Oncology 04/29/18 documented as of this encounter Additional Source Comments The information contained in this document represents components of the legal health record. It is not the complete legal health record.[facility]
--- OUTSIDE RECORDS SUMMARY | 2025-09-19 22:27 | XMS_ITS | Encounter Summary ---
Author Organization [facility] Address [address] [place] [address] Phone Care Team Providers Care Medical Staff Credentialing Coordinator Name Role Phone Regino Coleman MD Primary Care Provider Fallon Dillard MD Unavailable [phone] Jr Hogue MD Primary Care Provid er Chicho Hargrove MD Primary Care Provider [phone] Encounter Details Date Type Department Care Team (Late st Contact Info) Description 06/15/2019 Procedure Pass [facility] MR Imaging, Black [address] [place] [address] Social History Tobacco Use Types Packs/Day Years [...] on filedocumented in this encounter Care Teams Medical Staff Credentialing Coordinator Relationship Specialty Start Date End Date Regino Coleman MD [address] [place] [address] Dr Greenke RICKY [address] PCP - General Internal Medicine 04/29/18 04/04/25 Jr Hogue MD [address] [facility] [address] Rob [address] [place] [address] PCP - General Internal Medicine 04/05/25 08/07/25 Chicho Hargrove MD [address] [place] [address] [address] PCP - General Internal Medicine 08/08/25 Fallon Dillard MD [address] [place] [address] [email or web address] Referring Physician Hematology and Oncology 04/29/18 documented as of this encounter Additional Source Comments The information contained in this document represents components of the legal health record. It is not the complete legal health record.[facility]
--- OUTSIDE RECORDS SUMMARY | 2025-09-19 22:28 | XMS_ITS | Encounter Summary ---
Author Organization [facility] Address [address] [place] [address] Phone Care Team Providers Care Physician Specialist Name Role Phone Regino Coleman MD Primary Care Provider Fallon Dillard MD Unavailable [phone] Jr Hogue MD Primary Care Provid er Chicho Hargrove MD Primary Care Provider [phone] Encounter Details Date Type Department Care Team (Late st Contact Info) Description 01/05/2019 Procedure Pass [facility] MR Imaging, Black [address] [place] [address] Social History Tobacco Use Types Packs/Day Years [...] on filedocumented in this encounter Care Teams Physician Specialist Relationship Specialty Start Date End Date Regino Coleman MD [address] [place] [address] Dr Greenke RICKY [address] PCP - General Internal Medicine 04/29/18 04/04/25 Jr Hogue MD [address] [facility] [address] Rob [address] [place] [address] PCP - General Internal Medicine 04/05/25 08/07/25 Chicho Hargrove MD [address] [place] [address] [address] PCP - General Internal Medicine 08/08/25 Fallon Dillard MD [address] [place] [address] [email or web address] Referring Physician Hematology and Oncology 04/29/18 documented as of this encounter Additional Source Comments The information contained in this document represents components of the legal health record. It is not the complete legal health record.[facility]
--- OUTSIDE RECORDS SUMMARY | 2025-09-19 22:28 | XMS_ITS | Encounter Summary ---
Author Organization [facility] Address [address] [place] [address] Phone Care Team Providers Care Mens Locker Room Attendant Name Role Phone Regino Coleman MD Primary Care Provider Fallon Dillard MD Unavailable [phone] Jr Hogue MD Primary Care Provid er Chicho Hargrove MD Primary Care Provider [phone] Encounter Details Date Type Department Care Team (Late st Contact Info) Description 08/19/2023 Procedure Pass [facility], [address] [address] Social History Tobacco Use Types Packs/Day Years [...] on filedocumented in this encounter Care Teams Mens Locker Room Attendant Relationship Specialty Start Date End Date Regino Coleman MD [address] [place] [address] PCP - General Internal Medicine 04/29/18 04/04/25 Jr Hogue MD [address] [place] [address] PCP - General Internal Medicine 04/05/25 08/07/25 Chicho Hargrove MD [address] [place] [address] PCP - General Internal Medicine 08/08/25 Fallon Dillard MD [address] [place] [address] [email or web address] Referring Physician Hematology and Oncology 04/29/18 documented as of this encounter Additional Source Comments The information contained in this document represents components of the legal health record. It is not the complete legal health record.[facility]
--- OUTSIDE RECORDS SUMMARY | 2025-09-19 22:28 | XMS_ITS | Encounter Summary ---
Author Organization [facility] Address [address] [place] [address] [place] [address] Phone Care Team Providers Care Gasket Maker Name Role Phone Regino Coleman MD Primary Care Provider Fallon Dillard MD Unavailable [phone] Jr Hogue MD Primary Care Provid er Chicho Hargrove MD Primary Care Provider [phone] Encounter Details Date Type Department Care Team (Late st Contact Info) Description 06/23/2018 Procedure Pass [facility] [address] [place] [address] Social History Tobacco Use Types Packs/Day Years [...] on filedocumented in this encounter Care Teams Gasket Maker Relationship Specialty Start Date End Date Regino Coleman MD [address] [place] [address] Dr Jones RICKY [address] PCP - General Internal Medicine 04/29/18 04/04/25 Jr Hogue MD [address] Rob [address] [place] [address] PCP - General Internal Medicine 04/05/25 08/07/25 Chicho Hargrove MD [address] [place] [address] [address] PCP - General Internal Medicine 08/08/25 Fallon Dillard MD [address] [place] [address] [email or web address] Referring Physician Hematology and Oncology 04/29/18 documented as of this encounter Additional Source Comments The information contained in this document represents components of the legal health record. It is not the complete legal health record.[facility]
--- OUTSIDE RECORDS SUMMARY | 2025-09-19 22:28 | XMS_ITS | Encounter Summary ---
Author Organization [facility] Address [address] [place] [address] Phone Care Team Providers Care Dye Reel Operator Helper Name Role Phone Regino Coleman MD Primary Care Provider Fallon Dillard MD Unavailable [phone] Jr Hogue MD Primary Care Provid er Chicho Hargrove MD Primary Care Provider Encounter Details Date Type Department Care Team (Late st Contact Info) Description 07/07/2022 Procedure Pass [facility], [address] [address] Social History Tobacco Use Types Packs/Day Years [...] on filedocumented in this encounter Care Teams Dye Reel Operator Helper Relationship Specialty Start Date End Date Regino Coleman MD [address] [place] [address] Dr Jones RICKY [address] PCP - General Internal Medicine 04/29/18 04/04/25 Jr Hogue MD [address] [place] [address] Drive Rob [address] [place] [address] PCP - General Internal Medicine 04/05/25 08/07/25 Chicho Hargrove MD [address] [place] [address] [address] PCP - General Internal Medicine 08/08/25 Fallon Dillard MD [address] [place] [address] [email or web address] Referring Physician Hematology and Oncology 04/29/18 documented as of this encounter Additional Source Comments The information contained in this document represents components of the legal health record. It is not the complete legal health record.[facility]
--- OUTSIDE RECORDS SUMMARY | 2025-09-19 22:28 | XMS_ITS | Encounter Summary ---
Author Organization [facility] Address [address] [place] [address] Phone Care Team Providers Care Hot Baller Name Role Phone Regino Coleman MD Primary Care Provider Fallon Dillard MD Unavailable [phone] Jr Hogue MD Primary Care Provid er Chicho Hargrove MD Primary Care Provider [phone] Encounter Details Date Type Department Care Team (Late st Contact Info) Description 09/29/2018 Procedure Pass [facility] MR Imaging, Black [address] [place] [address] Social History Tobacco Use Types Packs/Day Years [...] on filedocumented in this encounter Care Teams Hot Baller Relationship Specialty Start Date End Date Regino Coleman MD [address] [place] [address] Dr Greenke RICKY [address] PCP - General Internal Medicine 04/29/18 04/04/25 Jr Hogue MD [address] [facility] [address] Rob [address] [place] [address] PCP - General Internal Medicine 04/05/25 08/07/25 Chicho Hargrove MD [address] [place] [address] [address] PCP - General Internal Medicine 08/08/25 Fallon Dillard MD [address] [place] [address] [email or web address] Referring Physician Hematology and Oncology 04/29/18 documented as of this encounter Additional Source Comments The information contained in this document represents components of the legal health record. It is not the complete legal health record.[facility]
--- OUTSIDE RECORDS SUMMARY | 2025-09-19 22:29 | XMS_ITS | Clinical Summary ---
Author Organization [facility] Address [address] [facility] [place] [address] Care Team Providers Care Unit Tender Name Role Phone Regino Coleman MD Primary [...] initially though review of the pathology by [facility], Department of Pathology suggests that [...] date. Immunizations Immunization Administration Dates Next Due [employer] SARS-COV-2 12/14/2020 [employer] SARS-COV-2 08/06/2021 Pneumococcal Conjugate 13-Valent 12/29/2019 Family [...] complete this topic Insurance Medicare [facility] Medicare [facility] Care Teams Unit Tender Relationship Specialty Start Date End Date Region Coleman MD [address] [address] RICKY CARO PCP - General 10/21/20
--- OUTSIDE RECORDS SUMMARY | 2025-09-19 22:29 | XMS_ITS | Patient Health Record ---
Author Organization [facility] Address [address] [facility] [place] [address] Care Team Providers Care Field Secretary Name Role Phone Chicho Fraser Primary Care Provider Unavailabl e Black, Aye Unavailable [phone] Allergies Allergen (clinical drug ingredient) Drug/Non Drug [...] Duration) Notes Start Date End Date Status traMADol HCl 2x a day prn Acti ve Inderal XL Active Flonase 50 MCG/ACT 1 spray in each nostril Nasally Once a day; Duration: 30 day(s) Active Centrum Active Topiramate once a day Not-Taki ng Ammonium Lactate 12 % 1 application Externally Twice a day; Duration: 30 days Not-Taking Night Splint AFO - L1930 1 wear at rest; Duration: 30 days Active Simvastatin 20 MG 1 tablet in the evening Orally Once a day; Duration: 30 day(s) Not-Taking Medrol nj 4mg as directed orally as directed; Duration: 6 days 02/12/2025 Not-Taking Lyrica 100 MG 1 capsule Orally Twice a day Not-Taking Amitriptyline HCl No t-Taking Naproxen 500 MG 1 tablet as needed Orally every 12 hrs Not-Taking Letrozole 2.5 MG Orally Not -Taking Gabapentin Not-Takin g Fluoxetine Not-Takin g Tamoxifen Citrate No t-Taking Meloxicam 15 MG 1 tablet Orally Once a day; Duration: 30 Not-Taking Calcium Active Vitamin D3 Active Alendronate Sodium 70 MG 1 tablet 30 minutes before the first food, beverage or medicine of the day with plain water Orally Active Atorvastatin Calcium 20 MG 1 tablet Orally Once a day Active Immunizations Vaccine Route Administration Date Status Comme nts Influenza Unknown 06/11/2024 Administered Influenza Unknown 07/13/2025 Administered COVID-19 [employer]in [employer] Quintin/Precious Unknown 07/31/2021 [...] primary osteoarthritis of the ankle and/or foot (514047754) Primary osteoarthritis, left ankle and foot (M19.072) Active confirmed Problem Plantar fasciitis of right foot (78914333376858593 ) Plantar fasciitis of right foot (M72.2) Active confirmed Problem Interstitial myositis (90747992) Interstitial myositis of right foot (M60.171) Active confirmed Vital Signs Blood pressure diastolic 70 mm Hg 09/03/2025 Height 5ft3in in 09/03/2025 Blood pressure systolic 126 mm Hg 09/03/2025 Weight 136 lbs 09/03/2025 BMI 24.09 kg/m2 09/03/2025 Procedures Procedure Date Ordered Date Performed Result Body Sit e , X9054-VFPMT/INJECT, JOINT/BURSA 05/24/2025 N/A , W5927-XAIHB/INJECT, JOINT/BURSA 09/03/2025 N/A Encounters Encounter Location Date Provider Diagnosis [address] [address] 02/12/2025 Aye Bliss Primary osteoarthrit is, left [...] Other hammer toe(s) (acquired), right foot M20.[address] [address] 05/24/2025 Aye Bliss Primary osteoarthrit is, left ankle and foot M19.072 ; Joint pain M25.50 ; Neuralgia and neuritis, unspecified M79.2 and Hypertrophy of bone, 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 [address] 09/03/2025 Aye Bliss Primary osteoarthrit is, left ankle and foot M19.072 ; Joint pain M25.50 ; Neuralgia and neuritis, unspecified M79.2 ; Hypertrophy of bone, 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 ; Pain in right foot M79.671 ; Plantar fasciitis of right foot M72.2 ; Calcaneal spur, right foot M77.31 ; Interstitial myositis of right foot M60.171 and Bursitis of right foot M77.51 [facility] [address] [address] 12/11/2024 Aye Bliss [address] [address] 02/12/2025 Aye Bliss Assessments Encounter Date Diagnosis (ICD Code) Assessment Notes Treatment Notes Treatment Clinical Notes Section Notes 02/12/2025 Primary osteoarthrit is, left ankle and foot (ICD-10 - M19.072) 02/12/2025 Joint pain (ICD-10 - M25.50) 05/24/2025 Primary osteoarthrit is, left ankle and foot (ICD-10 - M19.072) 05/24/2025 Joint pain (ICD-10 - M25.50) 09/03/2025 Primary osteoarthrit is, left ankle and foot (ICD-10 - M19.072) 09/03/2025 Joint pain (ICD-10 - M25.50) 05/24/2025 Neuralgia and neurit is, unspecified (ICD-10 - M79.2) 02/12/2025 Neuralgia and neurit is, unspecified (ICD-10 - M79.2) 05/24/2025 Hypertrophy of bone, left ankle and foot (ICD-10 - M89.372) 02/12/2025 Hypertrophy of bone, left ankle and foot (ICD-10 - M89.372) 09/03/2025 Neuralgia and neurit is, unspecified (ICD-10 - M79.2) 09/03/2025 Hypertrophy of bone, left ankle and foot (ICD-10 - M89.372) 02/12/2025 Pain in left foot (ICD-10 - M79.672) 02/12/2025 Pain in right toe(s) (ICD-10 - M79.674) 09/03/2025 Pain in right foot (ICD-10 - M79.671) 09/03/2025 Plantar fasciitis of right foot (ICD-10 - M72.2) Patient Educated with: HEEL CORD STRETCHES.pdf (HEEL CORD STRETCHES.pdf ) Patient Educated with: RICE THERAPY.pdf (RICE THERAPY.pdf) 02/12/2025 Arthritis of joint o f lesser toe, right (ICD-10 - M19.071) 02/12/2025 Subluxation of metatarsophalangeal joint of toe, initial encounter (ICD-10 - S93.149A) 09/03/2025 Calcaneal spur, righ t foot (ICD-10 - M77.31) 09/03/2025 Interstitial myositi s of right foot (ICD-10 - M60.171) 02/12/2025 Other hammer toe(s) (acquired), right foot (ICD-10 - M20.41) 09/03/2025 Bursitis of right fo ot (ICD-10 - M77.51) Plan Of Treatment Pending Test Test Name Order Date Tc99 3 phase Bone Scan 04/03/2016 X ray : Foot, left 3V 04/24/2013 X ray : Foot, right 3V 04/24/2013 15272-Alyf Destruction, -02/08/2023 81925-Mxyu Destruction, -12/08/2021 81053, Y0638-JMWLY/INJECT, JOINT/BURSA 0 04/06/202228190, I9676-MBZYN/INJECT, JOINT/BURSA 1 94020, S8047-UVJLP/INJECT, JOINT/BURSA 0 02/08/202364150, K3851-PTHIW/INJECT, JOINT/BURSA 1 11/02/201900802, N3018-GFBSA/INJECT, JOINT/BURSA 0 01/02/202114201, O8713-UPFWJ/INJECT, JOINT/BURSA 0 05/05/2021, J3836-OJBMJ/INJECT, JOINT/BURSA 1 79675, B9693-ZGAXN/INJECT, JOINT/BURSA 0 12/08/2021 30538, A6018-EKIFA/INJECT, JOINT/BURSA 0 04/08/2016 06262, D4074-UAZDS/INJECT, JOINT/BURSA 0 11/02/2016 55904, L0671-WTIYV/INJECT, JOINT/BURSA 0 01/26/2017 77229, Q0392-UTOZQ/INJECT, JOINT/BURSA 1 11/24/2016 69973, W8998-LMPRH/INJECT, JOINT/BURSA 0 12/10/2017 05794, L1051-JMUXT/INJECT, JOINT/BURSA 0 03/14/2018 66151, M3789-BRBAV/INJECT, JOINT/BURSA 1 10/29/2017 32956, Q3715-SXHMI/INJECT, JOINT/BURSA 0 12/19/2018 26591, P0302-CWOOV/INJECT, JOINT/BURSA 0 04/20/2019 32583, Y0088-YKESH/INJECT, JOINT/BURSA 1 10/24/2018 66177, Q3261-GOCUT/INJECT, JOINT/BURSA 0 01/01/202072085, V1785-VLSNE/INJECT, JOINT/BURSA 0 06/21/2023 96283, F9370-CGEEO/INJECT, JOINT/BURSA 0 11/01/2023 24098, L8136-GIWUK/INJECT, JOINT/BURSA 0 02/28/2024 31853, S9641-YHQAD/INJECT, JOINT/BURSA 1 10/17/2023 15254, O4837-ITRAT/INJECT, JOINT/BURSA 0 05/24/2025 66100, I8069-DFAJH/INJECT, JOINT/BURSA 1 11/03/2024 48164,O9417-OQF TENDON SHEATH/LIGAMENT 0 05/02/2020 Next Appt Details Provider Name:Aye Bliss , 12/24/2025 01:45:00 PM, [address] [place] [address], [place], [address], Insurance Providers Payer Name Payer Address Payer Phone Subscriber Number Group Number Insured Name Patient Relationship to Insured Coverage Start Date Coverage End Date Medicare National Govt S[employer] [address] [place] [address] [id number] Rebekah Suh Self - patient is the insured [employer]) [address] [place] [address] [id number] Rebekah Suh Self - patient is [...] bladder prolapse 12/29/24 Hospitalization History Reason Date(Month/Year) [facility] for a day bad reaction to fentanyl w yuliana colonoscopy was done 08/2017
== END 2025-09-19 14:17 | disposition home or self-care (01) ==
LOC: HO.HMGAL 14:16
PROVIDERS: PCP Student in an Organized Health Care Education/Training Program; Visit Provider Registered Nurse Emergency
DX: J30.89 Other allergic rhinitis (principal)
CPT/HCPCS: 95117; 95165

== ENCOUNTER 2025-09-23 10:15 | Outpatient (REF) | payer MEDICARE, OTHER, SELFPAY ==
--- OUTSIDE RECORDS SUMMARY | 2024-07-03 04:15 | XMS_ITS ---
Author Organization [facility] Address [address] [place] [address] Care Team Providers Care Pc Network Technician Name Role Phone Chicho Fraser Primary Care Provider UnavailAye Alva [phone] Encounters Encounter Location Date Provider Diagnosis [address] [address] 07/03/2024 Aye Bliss Plan Of Treatment Next Appt Details Provider Name:Aye Bliss , 12/24/2025 01:45:00 PM, [address] [place] [address], [phone], Progress Notes * Alexander HAHNeDOB: [birth year] (69 yo F)Acc No.[id number]:07/03/2024 Progress Note Patient: Rebekah POLO Provider: Alicja Bliss DPM :1955 A ge:68 Y S ex:Female Date:07/03/2024 Address:[address] [place] [phone] Pcp:Chicho Fraser Subjective: * Chief Complaints: * * Medical History: Objective: * Vitals: Assessment: Plan: * Treatment: * Images: * The named appointment provid er may or may not be the originator of this progress note, and it is not deemed complete until electronically signed by the appointment provider. Sign off status: Pending * Provider: Alicja Bliss DPM Date: 0 07/03/2024 Generated for Chandler Ortega/Nirav on: 1 11/24/2024 10:23 AM EST
--- OUTSIDE RECORDS SUMMARY | 2024-12-11 03:15 | XMS_ITS ---
Author Organization [facility] Address [address] [place] [address] Care Team Providers Care Registrar College Or University Name Role Phone Chicho Fraser Primary Care Provider Unavailabl e Black, Aye Unavailable [phone] Allergies Allergen (clinical drug ingredient) Drug/Non Drug [...] Negative Encounters Encounter Location Date Provider Diagnosis [facility] [address] [address] 12/11/2024 Aye Bliss Plan Of Treatment Next Appt Details Provider Name:Aye Bliss , 12/24/2025 01:45:00 PM, [address] [place], [address], Progress Notes * Alexander HAHNeDOB: [birth year] (69 yo F)Acc No.[id number]:12/11/2024 Progress Note Patient: Rebekah POLO Provider: Alicja Bliss DPM :1955 A ge:69 Y S ex:Female Date:12/11/2024 Address:[address] [place] [address] Pcp:Chicho Fraser Subjective: * Chief Complaints: * [...] denies.? C ardiovascular: Pacemaker d enies. M PERFORMANCE SOLUTIONS SPECIALIST a dmits. W PW d enies. C [...] eakness d enies. P odiatric: Comments S [facility] for comments. I nteg.: Marques [...] 12/11/2024 Generated for Chandler bentley/Brennon/Nirav on: 1 11/24/2024 10:22 AM EST
--- OUTSIDE RECORDS SUMMARY | 2025-07-04 03:30 | XMS_ITS ---
Author Organization [facility] Address [address] [facility] [address] [place] [address] Care Team Providers Care Sack Lifter Name Role Phone DESHAUN OROURKE Primary Care Provider Amilcar Santigao [phone] REASON FOR VISIT gerd,IBS,change in bowel habits Encounters Encounter Location Date Provider Diagnosis [facility] [place] [address] [place] [phone] 07/04/2025 Amilcar Sosa Plan Of Treatment Next Appt Details Provider Name:Amilcar Sosa , 09/27/2025 09:00:00 AM, [address] [place] [address], [address], [place], [address], Progress Notes * CORDELL COVARRUBIAS EDOB:[birth year] (69 yo F)Acc No.[id number]:07/04/2025 EGD and COL/MAC Patient: Kimberly CORDELL AHN Provider: Gary Sosa MD :1955 A ge:69 Y S ex:Female Date:07/04/2025 Address:[address] [id number] Pcp:DESHAUN OROURKE Subjective: * Chief Complaints: * [...] 07/04/2025 Generated for Chandler bentley/Brennon/Nirav on: 1 11/24/2024 10:23 AM EST
--- OUTSIDE RECORDS SUMMARY | 2025-08-27 03:15 | XMS_ITS ---
Author Organization [facility] Address [address] [place] [id number] Care Team Providers Care Padded Box Sewer Name Role Phone Chicho Fraser Primary Care Provider Unavailabl Aye Foster Unavailable [phone] Russ Encounters Encounter Location Date Provider Diagnosis [address] [address] 08/27/2025 Aye Bliss Plan Of Treatment Next Appt Details Provider Name:Aye A Izaiah , 12/24/2025 01:45:00 PM, [address] [place] [address], [phone], Progress Notes * Alxeander HAHNeDOB: [birth year] (69 yo F)Acc No.[id number]:08/27/2025 Progress Note Patient: Rebekah POLO Provider: Alicja Bliss DPM :1955 A ge:69 Y S ex:Female Date:08/27/2025 Address:[address] [place] [id number] Pcp:Chicho Fraser Subjective: * Chief Complaints: * [...] DPM Date: 1 10/27/2024 Generated for Chandler Ortega/Nirav on: 11/24/2024 10:23 AM EST
--- NOTE | ~2025-09-23 | MR_ITS ---
EXAMINATION: MR LUMBAR SPINE WITHOUT CONTRAST CLINICAL INFORMATION: Ingrid 47.816 COMPARISON: February 14, 2016. TECHNIQUE: MRI of the lumbar spine was obtained using routine sequences without contrast. FINDINGS: Last rib-bearing vertebra labeled T12. There is a focal, 7 mm hypointense T1 and T2 and hyperintense STIR bone marrow signal in the posterior superior endplate of T11. There is multilevel marginal osteophyte formation and disc desiccation throughout the axial skeleton. There is a 1 mm retrolisthesis at L1-2. There is a 1 mm anterolisthesis at L2-3.. The conus medullaris ends at pedicle of L2 with normal signal. T11-12: No disc herniation. No neuroforamina stenosis. T12-L1: Broad-based disc bulging. Facet joint hypertrophy. No central spinal canal or neuroforamina stenosis. L1-2: Broad-based disc bulging. Facet joint and ligamentum flavum hypertrophy. No central spinal canal or neuroforamina stenosis. L2-3: Broad-based disc bulging. Facet joint and ligamentum flavum hypertrophy. No central spinal canal or neuroforamina stenosis. L3-4: Broad-based disc bulging. Facet joint and ligamentum flavum hypertrophy. Reduced AP diameter of the thecal sac. Bilateral neuroforamina narrowing. L5-S1: Broad-based disc bulging. Facet joint and ligamentum flavum hypertrophy. Reduced AP diameter of the thecal sac and neuroforamina. L5-S1: Broad-based disc bulging. Facet joint hypertrophy. Reduced AP diameter of the thecal sac and neuroforamina, right greater than the left side. No prevertebral compartment hematoma, mass or fluid collections. Absent left kidney in its normal retroperitoneal position. MR/MR lumbar spine wo con IMPRESSION: Multilevel spondylosis pronounced from L3-4 to L5-S1 without compression upon neural elements. Absent left kidney. Electronically signed by: Brenden Calvillo MD 09/24/2025 08:44 AM EST
--- OUTSIDE RECORDS SUMMARY | 2025-09-23 10:22 | XMS_ITS | Encounter Summary ---
Author Organization [facility] Address [address] [place] [address] Phone Care Team Providers Care Mechanical Striper Name Role Phone Regino Coleman MD Primary Care Provider Fallon Dillard MD Unavailable [phone] Jr Hogue MD Primary Care Provid er Chicho Hargrove MD Primary Care Provider [phone] Encounter Details Date Type Department Care Team (Late st Contact Info) Description 06/16/2018 Procedure Pass [facility] Periop [address] [place] [address] Social History Tobacco Use Types Packs/Day Years [...] on filedocumented in this encounter Care Teams Mechanical Striper Relationship Specialty Start Date End Date Regino Coleman MD [address] [place] [address] Dr Jones RICKY [address] PCP - General Internal Medicine 04/29/18 04/04/25 Jr Hogue MD [address] Rob [address] [place] [address] PCP - General Internal Medicine 04/05/25 08/07/25 Chicho Hargrove MD [address] [facility] [address] [address] PCP - General Internal Medicine 08/08/25 Fallon Dillard MD [address] [place] [address] [email or web address] Referring Physician Hematology and Oncology 04/29/18 documented as of this encounter Additional Source Comments The information contained in this document represents components of the legal health record. It is not the complete legal health record.[facility]
--- OUTSIDE RECORDS SUMMARY | 2025-09-23 10:22 | XMS_ITS | Encounter Summary ---
Author Organization [facility] Address [address] [place] [address] Phone Care Team Providers Care Leaf Blender Name Role Phone Regino Coleman MD Primary Care Provider Fallon Dillard MD Unavailable [phone] Jr Hogue MD Primary Care Provid er Chicho Hargrove MD Primary Care Provider Encounter Details Date Type Department Care Team (Late st Contact Info) Description 05/11/2022 Procedure Pass [facility], [address] [address] Social History Tobacco Use Types Packs/Day Years [...] on filedocumented in this encounter Care Teams Leaf Blender Relationship Specialty Start Date End Date Regino Coleman MD [address] [place] [address] Dr Jones RICKY [address] PCP - General Internal Medicine 04/29/18 04/04/25 Jr Hogue MD [address] [place] [address] Drive Rob [address] [place] [address] PCP - General Internal Medicine 04/05/25 08/07/25 Chicho Hargrove MD [address] [place] [address] [address] PCP - General Internal Medicine 08/08/25 Fallon Dillard MD [address] [place] [address] [email or web address] Referring Physician Hematology and Oncology 04/29/18 documented as of this encounter Additional Source Comments The information contained in this document represents components of the legal health record. It is not the complete legal health record.[facility]
--- OUTSIDE RECORDS SUMMARY | 2025-09-23 10:22 | XMS_ITS | Encounter Summary ---
Author Organization [facility] Address [address] [place] [address] Phone Care Team Providers Care Stem Mounter Name Role Phone Regino Coleman MD Primary Care Provider Fallon Dillard MD Unavailable [phone] Jr Hogue MD Primary Care Provid er Chicho Hargrove MD Primary Care Provider Encounter Details Date Type Department Care Team (Late st Contact Info) Description 05/24/2018 Procedure Pass [facility] OUTSIDE IMG [address] [place] [address] Social History Tobacco Use Types Packs/Day Years [...] on filedocumented in this encounter Care Teams Stem Mounter Relationship Specialty Start Date End Date Regino Coleman MD [address] [place] [address] Dr DYER RICKY [place]onson [address] PCP - General Internal Medicine 04/29/18 04/04/25 Jr Hogue MD [address] Rob [address] [place] [address] PCP - General Internal Medicine 04/05/25 08/07/25 Chicho Hargrove MD [address] [place] [address] PCP - General Internal Medicine 08/08/25 Fallon Dillard MD [address] [place] [address] [email or web address] Referring Physician Hematology and Oncology 04/29/18 documented as of this encounter Additional Source Comments The information contained in this document represents components of the legal health record. It is not the complete legal health record.[facility]
--- OUTSIDE RECORDS SUMMARY | 2025-09-23 10:23 | XMS_ITS | Encounter Summary ---
Author Organization [facility] Address [address] [place] [address] Phone Care Team Providers Care Roll Coverer Name Role Phone Regino Coleman MD Primary Care Provider Fallon Dillard MD Unavailable [phone] Jr Hogue MD Primary Care Provid er Chicho Hargrove MD Primary Care Provider [phone] Encounter Details Date Type Department Care Team (Late st Contact Info) Description 09/29/2018 Procedure Pass [facility] MR Imaging, Black [address] [place] [address] Social History Tobacco Use Types Packs/Day Years [...] filedocumented in this encounter Care Teams Roll Coverer Relationship Specialty Start Date End Date Regino Coleman MD [address] [place] [address] Dr Greenke RICKY [address] PCP - General Internal Medicine 04/29/18 04/04/25 Jr Hogue MD [address] Rob [address] [place] [address] PCP - General Internal Medicine 04/05/25 08/07/25 Chicho Hargrove MD [address] [place] [address] [address] PCP - General Internal Medicine 08/08/25 Fallon Dillard MD [address] [place] [address] [email or web address] Referring Physician Hematology and Oncology 04/29/18 documented as of this encounter Additional Source Comments The information contained in this document represents components of the legal health record. It is not the complete legal health record.[facility]
--- OUTSIDE RECORDS SUMMARY | 2025-09-23 10:23 | XMS_ITS | Encounter Summary ---
Author Organization [facility] Address [address] [place] [address] [place] [address] Phone Care Team Providers Care Senior Network Engineer Name Role Phone Regino Coleman MD Primary Care Provider Fallon Dillard MD Unavailable [phone] Jr Hogue MD Primary Care Provid er Chicho Hargrove MD Primary Care Provider [phone] Encounter Details Date Type Department Care Team (Late st Contact Info) Description 06/23/2018 Procedure Pass [facility] [address] [place] [address] Social History Tobacco Use Types Packs/Day Years [...] filedocumented in this encounter Care Teams Senior Network Engineer Relationship Specialty Start Date End Date Regino Coleman MD [address] [place] [address] Dr Jones RICKY [address] PCP - General Internal Medicine 04/29/18 04/04/25 Jr Hogue MD [address] [facility] [address] Rob [address] [place] [address] PCP - General Internal Medicine 04/05/25 08/07/25 Chicho Hargrove MD [address] [place] [address] [address] PCP - General Internal Medicine 08/08/25 Fallon Dillard MD [address] [place] [address] [email or web address] Referring Physician Hematology and Oncology 04/29/18 documented as of this encounter Additional Source Comments The information contained in this document represents components of the legal health record. It is not the complete legal health record.[facility]
--- OUTSIDE RECORDS SUMMARY | 2025-09-23 10:23 | XMS_ITS | Encounter Summary ---
Author Organization [facility] Address [address] [place] [address] Phone Care Team Providers Care Stud Driver Name Role Phone Regino Coleman MD Primary Care Provider [phone] Encounter Details Date Type Department Care Team (Late st Contact Info) Description 01/06/2023 Telephone [facility] [address] [place] [address] Ying Medrano Social History Tobacco [...] appt w/ [facility] and fax order to [facility] and they will call and book sooner appt. Pt stated that she is going to see her dynamometer tuner in 2 weeks and her MD stated she will do th US in office. Pls advise if you would like her dynamometer tuner to do US or move forward with the hospital. Her dynamometer tuner does not have a radiology department. * Telephone Encounter - Ying Medrano - 01/06/2023 9:51 AM EDT PT says she has renal ultrasound scheduled for 03/01/23. PT wants to be seen sooner, she is asking for an earlier appointment and is willing to commute to [place] if she can get a sooner appointment. documented in this encounter Plan of Treatment Not on file documented as of this encounter Visit Diagnoses Not on filedocumented in this encounter Care Teams Stud Driver Relationship Specialty Start Date End Date Regino Coleman MD [address] [place] [address] DR[address] [facility] PCP - General 10/21/20 documented as of this encounter
--- OUTSIDE RECORDS SUMMARY | 2025-09-23 10:23 | XMS_ITS | Encounter Summary ---
Author Organization [facility] Address [address] [place] [address] Phone Care Team Providers Care Public Information Coordinator Name Role Phone Regino Coleman MD Primary Care Provider Fallon Dillard MD Unavailable [phone] Jr Hogue MD Primary Care Provid er Chicho Hargrove MD Primary Care Provider [phone] Encounter Details Date Type Department Care Team (Late st Contact Info) Description 08/19/2023 Procedure Pass [facility], [address] [address] Social History Tobacco Use Types Packs/Day Years [...] filedocumented in this encounter Care Teams Public Information Coordinator Relationship Specialty Start Date End Date Regino Coleman MD [address] [place] [address] PCP - General Internal Medicine 04/29/18 04/04/25 Jr Hogue MD [address] [place] [address] PCP - General Internal Medicine 04/05/25 08/07/25 Chicho Hargrove MD [address] [place] [address] PCP - General Internal Medicine 08/08/25 Fallon Dillard MD [address] [place] [address] [email or web address] [email or web address] Referring Physician Hematology and Oncology 04/29/18 documented as of this encounter Additional Source Comments The information contained in this document represents components of the legal health record. It is not the complete legal health record.[facility]
--- OUTSIDE RECORDS SUMMARY | 2025-09-23 10:23 | XMS_ITS | Encounter Summary ---
Author Organization [facility] Address [address] [place] [address] Phone Care Team Providers Care Barn Manager Name Role Phone Regino Coleman MD Primary Care Provider [phone] Encounter Details Date Type Department Care Team (Late st Contact Info) Description 11/25/2022 Telephone [facility] [address] [place] [address] Ying Medrano Social History Tobacco [...] called to relay that Dr. Reyes from [facility] had recently put a stent in [...] on filedocumented in this encounter Care Teams Barn Manager Relationship Specialty Start Date End Date Regino Coleman MD [address] [address] [place]IR[place] PCP - General 10/21/20 documented as of this encounter
--- OUTSIDE RECORDS SUMMARY | 2025-09-23 10:23 | XMS_ITS | Encounter Summary ---
Author Organization [facility] Address [address] [place] [address] Phone Care Team Providers Care Police Specialist Name Role Phone Regino Coleman MD Primary Care Provider Fallon Dillard MD Unavailable [phone] Jr Hogue MD Primary Care Provid er Chicho Hargrove MD Primary Care Provider Encounter Details Date Type Department Care Team (Late st Contact Info) Description 07/07/2022 Procedure Pass [facility], [address] [address] Social History Tobacco Use Types Packs/Day Years [...] on filedocumented in this encounter Care Teams Police Specialist Relationship Specialty Start Date End Date Regino Coleman MD [address] [place] [address] Dr Jones RICKY [address] PCP - General Internal Medicine 04/29/18 04/04/25 Jr Hogue MD [address] [place] [address] Drive Rob [address] [place] [address] PCP - General Internal Medicine 04/05/25 08/07/25 Chicho Hargrove MD [address] [place] [address] [address] PCP - General Internal Medicine 08/08/25 Fallon Dillard MD [address] [place] [address] [email or web address] Referring Physician Hematology and Oncology 04/29/18 documented as of this encounter Additional Source Comments The information contained in this document represents components of the legal health record. It is not the complete legal health record.[facility]
--- OUTSIDE RECORDS SUMMARY | 2025-09-23 10:23 | XMS_ITS | Encounter Summary ---
Author Organization [facility] Address [address] [place] [address] Phone Care Team Providers Care Wagon Washer Name Role Phone Regino Coleman MD Primary Care Provider Fallon Dillard MD Unavailable [phone] Jr Hogue MD Primary Care Provid er Chicho Hargrove MD Primary Care Provider Encounter Details Date Type Department Care Team (Late st Contact Info) Description 07/02/2020 Procedure Pass [facility], [address] [address] Social History Tobacco Use Types Packs/Day Years [...] on filedocumented in this encounter Care Teams Wagon Washer Relationship Specialty Start Date End Date Regino Coleman MD [address] [place] [address] Dr Jones RICKY [address] PCP - General Internal Medicine 04/29/18 04/04/25 Jr Hogue MD [address] Rob [address] [place] [address] PCP - General Internal Medicine 04/05/25 08/07/25 Chicho Hargrove MD [address] [place] [address] [address] PCP - General Internal Medicine 08/08/25 Fallon Dillard MD [address] [place] [address] [email or web address] Referring Physician Hematology and Oncology 04/29/18 documented as of this encounter Additional Source Comments The information contained in this document represents components of the legal health record. It is not the complete legal health record.[facility]
--- OUTSIDE RECORDS SUMMARY | 2025-09-23 10:23 | XMS_ITS | Encounter Summary ---
Author Organization [facility] Address [address] [place] [address] Phone Care Team Providers Care Drapery Inspector Name Role Phone Regino Coleman MD Primary Care Provider Fallon Dillard MD Unavailable [phone] Jr Hogue MD Primary Care Provid er Chicho Hargrove MD Primary Care Provider [phone] Encounter Details Date Type Department Care Team (Late st Contact Info) Description 01/05/2019 Procedure Pass [facility] MR Imaging, Black [address] [place] [address] Social History Tobacco Use Types Packs/Day Years [...] on filedocumented in this encounter Care Teams Drapery Inspector Relationship Specialty Start Date End Date Regino Coleman MD [address] [place] [address] Dr Greenke RICKY [address] PCP - General Internal Medicine 04/29/18 04/04/25 Jr Hogue MD [address] [facility] [address] Rob [address] [place] [address] PCP - General Internal Medicine 04/05/25 08/07/25 Chicho Hargrove MD [address] [place] [address] [address] PCP - General Internal Medicine 08/08/25 Fallon Dillard MD [address] [place] [address] [email or web address] Referring Physician Hematology and Oncology 04/29/18 documented as of this encounter Additional Source Comments The information contained in this document represents components of the legal health record. It is not the complete legal health record.[facility]
--- OUTSIDE RECORDS SUMMARY | 2025-09-23 10:23 | XMS_ITS | Encounter Summary ---
Author Organization [facility] Address [address] [place] [address] Phone Care Team Providers Care Rn Resource Nurse Name Role Phone Regino Coleman MD Primary Care Provider Fallon Dillard MD Unavailable [phone] Jr Hogue MD Primary Care Provid er Chicho Hargrove MD Primary Care Provider [phone] Encounter Details Date Type Department Care Team (Late st Contact Info) Description 08/15/2024 Procedure Pass [address] [place] [address] Social History Tobacco Use Types Packs/Day Years [...] filedocumented in this encounter Care Teams Rn Resource Nurse Relationship Specialty Start Date End Date Regino Coleman MD [address] [place] [address] PCP - General Internal Medicine 04/29/18 04/04/25 Jr Hogue MD [address] [place] [address] PCP - General Internal Medicine 04/05/25 08/07/25 Chicho Hargrove MD [address] [place] [address] PCP - General Internal Medicine 08/08/25 Fallon Dillard MD [address] [place] [address] [email or web address] Referring Physician Hematology and Oncology 04/29/18 documented as of this encounter Additional Source Comments The information contained in this document represents components of the legal health record. It is not the complete legal health record.[facility]
--- OUTSIDE RECORDS SUMMARY | 2025-09-23 10:23 | XMS_ITS | Encounter Summary ---
Author Organization [facility] Address [address] [place] [address] Phone Care Team Providers Care Volunteer Recruitment Coordinator Name Role Phone Regino Coleman MD Primary Care Provider Fallon Dillard MD Unavailable [phone] Jr Hogue MD Primary Care Provid er Chicho Hargrove MD Primary Care Provider Encounter Details Date Type Department Care Team (Late st Contact Info) Description 06/10/2021 Ancillary Orders [facility],Outside Imaging [address] [place], [place] [id number] System, Provider Not In, [place] [address] Social History Tobacco Use Types Packs/Day Years [...] on filedocumented in this encounter Care Teams Volunteer Recruitment Coordinator Relationship Specialty Start Date End Date Regino Coleman MD [address] [place] [address] PCP - General Internal Medicine 04/29/18 04/04/25 Jr Hogue MD [address] [place] [address] PCP - General Internal Medicine 04/05/25 08/07/25 Chicho Hargrove MD [address] [place] [address] PCP - General Internal Medicine 08/08/25 Fallon Dillard MD [address] [place] [address] [email or web address] Referring Physician Hematology and Oncology 04/29/18 documented as of this encounter Additional Source Comments The information contained in this document represents components of the legal health record. It is not the complete legal health record.[facility]
--- OUTSIDE RECORDS SUMMARY | 2025-09-23 10:23 | XMS_ITS | Encounter Summary ---
Author Organization [facility] Address [address] [place] [address] Phone Care Team Providers Care Public Address Technician Name Role Phone Regino Coleman MD Primary Care Provider Fallon Dillard MD Unavailable [phone] Jr Hogue MD Primary Care Provid er Chicho Hargrove MD Primary Care Provider [phone] Encounter Details Date Type Department Care Team (Late st Contact Info) Description 06/15/2019 Procedure Pass [facility] MR Imaging, Black [address] [place] [address] Social History Tobacco Use Types Packs/Day Years [...] in this encounter Care Teams Public Address Technician Relationship Specialty Start Date End Date Regino Coleman MD [address] [place] [address] Dr Greenke RICKY [address] PCP - General Internal Medicine 04/29/18 04/04/25 Jr Hogue MD [address] [facility] [address] Rob [address] [place] [address] PCP - General Internal Medicine 04/05/25 08/07/25 Chicho Hargrove MD [address] [place] [address] [address] PCP - General Internal Medicine 08/08/25 Fallon Dillard MD [address] [place] [address] [email or web address] Referring Physician Hematology and Oncology 04/29/18 documented as of this encounter Additional Source Comments The information contained in this document represents components of the legal health record. It is not the complete legal health record.[facility]
--- OUTSIDE RECORDS SUMMARY | 2025-09-23 10:23 | XMS_ITS | Encounter Summary ---
Author Organization [facility] Address [address] [place] [address] Phone Care Team Providers Care Dairy And Food Laboratory Assistant Name Role Phone Regino Coleman MD Primary Care Provider Fallon Dillard MD Unavailable [phone] Jr Hogue MD Primary Care Provid er Chicho Hargrove MD Primary Care Provider Encounter Details Date Type Department Care Team (Late st Contact Info) Description 06/10/2021 Ancillary Orders [facility],Outside Imaging [address] [place], [place] [id number] System, Provider [place] In, [place] [address] Social History Tobacco Use Types Packs/Day Years [...] filedocumented in this encounter Care Teams Dairy And Food Laboratory Assistant Relationship Specialty Start Date End Date Regino Coleman MD [address] [place] [address] PCP - General Internal Medicine 04/29/18 04/04/25 Jr Hogue MD [address] [place] [address] PCP - General Internal Medicine 04/05/25 08/07/25 Chicho Hargrove MD [address] [place] [address] PCP - General Internal Medicine 08/08/25 Fallon Dillard MD [address] [place] [address] [email or web address] Referring Physician Hematology and Oncology 04/29/18 documented as of this encounter Additional Source Comments The information contained in this document represents components of the legal health record. It is not the complete legal health record.[facility]
--- OUTSIDE RECORDS SUMMARY | 2025-09-23 10:23 | XMS_ITS | Encounter Summary ---
Author Organization [facility] Address [address] [place] [address] Phone Care Team Providers Care Service Line Coordinator Name Role Phone Regino Coleman MD Primary Care Provider Fallon Dillard MD Unavailable [phone] rJ Hogue MD Primary Care Provid er Chicho Hargrove MD Primary Care Provider Encounter Details Date Type Department Care Team (Late st Contact Info) Description 06/10/2021 Ancillary Orders [facility],Outside Imaging [address] [place], [place] [id number] System, Provider [place] In, [place] [address] Social History Tobacco Use Types Packs/Day Years [...] on filedocumented in this encounter Care Teams Service Line Coordinator Relationship Specialty Start Date End Date Regino Coleman MD [address] [place] [address] PCP - General Internal Medicine 04/29/18 04/04/25 Jr Hogue MD [address] [place] [address] PCP - General Internal Medicine 04/05/25 08/07/25 Chicho Hargrove MD [address] [place] [address] PCP - General Internal Medicine 08/08/25 Fallon Dillard MD [address] [place] [address] [email or web address] Referring Physician Hematology and Oncology 04/29/18 documented as of this encounter Additional Source Comments The information contained in this document represents components of the legal health record. It is not the complete legal health record.[facility]
--- OUTSIDE RECORDS SUMMARY | 2025-09-23 10:23 | XMS_ITS | Encounter Summary ---
Author Organization [facility] Address [address] [place] [address] Phone Care Team Providers Care Funding Coordinator Name Role Phone Regino Coleman MD Primary Care Provider Fallon Dillard MD Unavailable [phone] Jr Hogue MD Primary Care Provid er Chicho Hargrove MD Primary Care Provider [phone] Encounter Details Date Type Department Care Team (Late st Contact Info) Description 04/27/2019 Procedure Pass [facility] MR Imaging, Black [address] [place] [address] Social History Tobacco Use Types Packs/Day Years [...] on filedocumented in this encounter Care Teams Funding Coordinator Relationship Specialty Start Date End Date Regino Coleman MD [address] [place] [address] Dr Greenke RICKY [address] PCP - General Internal Medicine 04/29/18 04/04/25 Jr Hogue MD [address] Rob [address] [place] [address] PCP - General Internal Medicine 04/05/25 08/07/25 Chicho Hargrove MD [address] [place] [address] [address] PCP - General Internal Medicine 08/08/25 Fallon Dillard MD [address] [place] [address] [email or web address] Referring Physician Hematology and Oncology 04/29/18 documented as of this encounter Additional Source Comments The information contained in this document represents components of the legal health record. It is not the complete legal health record.[facility]
--- OUTSIDE RECORDS SUMMARY | 2025-09-23 10:23 | XMS_ITS | Patient Health Record ---
Author Organization [facility] Address [address] [place] [address] Care Team Providers Care Shop Technician Name Role Phone DESHAUN OROURKE Primary Care Provider Amilcar Santiago Unavailable [phone] Allergies No Known Allergies Results Component Value Reference Range Notes Pathology (Not yet reviewed by provider) Interpretation: Performing Lab:[facility], [address] [place] [phone] Notes/Report: Reason For Referral No Information Medications [...] Status Risk Notes Problem Irritable bowel syndrome (99206103) Irritable bowel syndrome (K58.9) Active confirmed Problem Screening for malignant neoplasm of colon (697236727) Encounter for screening for malignant neoplasm of colon (Z12.11) Active confirmed Problem Diarrhea (15034294) Diarrhea (R19.7) Active con firmed Problem Change in bowel habit (94948952) Change in bowel habits (R19.4) Active confirmed Problem Screening for malignant neoplasm of rectum (717252511) Encounter for screening for malignant neoplasm of rectum (Z12.12) Active confirmed Problem Blood in stool (565260472) Blood in stool (K92.1) Active confirmed Problem Gastroesophageal reflux disease without esophagitis (077396577) Gastroesophageal reflux disease without esophagitis (K21.9) Active confirmed Problem Gastroesophageal reflux disease (054520745) Gastroesophageal reflux disease, esophagitis presence not specified (K21.9) Active confirmed Problem Pancreatic cyst (46954001) 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) Active confirmed Problem Constipation (01700518) Constipation, unspecified constipation type (K59.00) Active confirmed Problem Left lower quadrant pain (899593146) Abdominal pain, left lower quadrant (R10.32) Active confirmed Problem Gastroesophageal reflux disease (860351266) GERD (gastroesophageal reflux disease) (K21.9) Active confirmed Problem Irritable bowel syndrome characterized by constipation (490564334) Irritable bowel syndrome with constipation (K58.1) Active confirmed Problem Irritable bowel syndrome (81592434) Irritable bowel syndrome with both constipation and diarrhea (K58.2) Active confirmed Problem Thrombocytosis (disorder) (3473750) Thrombocytosis, unspecified (D75.839) Active confirmed Problem Neoplasm of digestive system (515646379) IPMN (intraductal papillary mucinous neoplasm) (D49.0) Active confirmed Vital Signs Blood pressure diastolic 77 mm Hg 04/03/2025 Height 64 in 04/03/2025 Blood pressure systolic 111 mm Hg 04/03/2025 Weight 136 lbs 04/03/2025 BMI 23.34 kg/m2 04/03/2025 Procedures Procedure Date Ordered Date Performed Result Body Sit e UPPER GI ENDOSCOPY 04/03/2025 N/A COLONOSCOPY 04/03/2025 N/A Encounters Encounter Location Date Provider Diagnosis [facility] [address] [place], [place] [id number] 07/04/2025 Amilcar Sosa [facility] [address] [place] [address] 09/28/2024 Amilcar Sosa Gastroesophageal ref lux disease, esophagitis presence not specified K21.9 ; Irritable bowel syndrome with constipation K58.1 ; Encounter for screening for malignant neoplasm of colon Z12.11 ; Constipation, unspecified constipation type K59.00 and Pancreatic cyst K86.2 [facility] [address] [address] 04/03/2025 Amilcar Sosa Change in bowel habi ts R19.4 ; Irritable bowel syndrome with both constipation and diarrhea K58.2 ; GERD (gastroesophageal reflux disease) K21.9 and IPMN (intraductal papillary mucinous neoplasm) D49.0 [facility] [address] [place] [address] 09/28/2024 Amilcar Sosa [facility] [address] [address] 04/03/2025 Amilcar Sosa Assessments Encounter Date Diagnosis [...] having it done up at [facility] as it is ordered by her [place] [facility] in regard to the follow-up of [...] having it done up at [facility] as it is ordered by her [place] [facility] in regard to the follow-up of [...] having it done up at [facility] as it is ordered by her [place] [facility] in regard to the follow-up of [...] having it done up at [facility] as it is ordered by her [place] [facility] in regard to the follow-up of [...] (ICD-10 - K86.2) Need MRI report from [facility] from 06/2024 Overall, Cordell appears well. [...] 09:00:00 AM, [address], [address], [place], [address], Insurance Providers Payer Name Payer Address Payer Phone Subscriber Number Group Number Insured Name Patient Relationship to Insured Coverage Start Date Coverage End Date MEDICARE [place] [address] [place] [address] [id number] CORDELL ORDAZ Self - patient is the insured [employer] ([employer]) [address] [place] [address] [phone] [id number] CORDELL ORDAZ Self - patient is the insured Medical (General) History Medical History History ICD Code Screening colonoscopy 05-24-2009--negativ e EGD 01-05-2002 and in 11/2016--small HH, n o esophagitis, no Hernandes's Asthma--presently asymptomatic 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 Dillard Mitral valve prolapse Lyme's disease/Fibromyalgia--Amitryptile ne and Gabapentin Migraines-on Propranolol Hyperlipidemia Arthritis in left foot--Meloxicam/Cortis one injections Denies CT,DM,CVA,renal disease Renal cancer with surgery in 06/2018 [...] polyps Left kidney removed for cancer at [facility] by Dr. Corrales 06/2018 Partial hysterectomy and linnea dder suspension with complications of the right ureteral injury that needed stenting, then repeat laparoscopy for internal bleeding 11/18/2022 Incisional hernia repair x 2 in 2020 and 07/2023 prolapse/bladder 12/29/2024
--- OUTSIDE RECORDS SUMMARY | 2025-09-23 10:23 | XMS_ITS | Clinical Summary ---
Author Organization [facility] Address [address] [place] [address] Phone Care Team Providers Care Medical Staff Coordinator Name Role Phone Fallon Dillard MD Unavailable [phone] Chicho Hargrove MD Primary Care Provider [...] with hand surgeon Dr. 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 Assessment & Plan [...] initially though review of the pathology by [facility], Department [...] Team Description 09/04/2025 11:50 AM EST Telemedicine [facility] Urology [address] [facility] [address] [place] [address] Ayaan Corrales MD Personal history of kidney cancer (Primary Dx) 08/08/2025 9:34 AM EDT - 08/08/2025 11:59 PM EDT Hospital Encounter [facility], X-Ray - [address] [place] [address] Ayaan Corrales MD Discharge Disposition: Home or Self Care 08/08/2025 9:34 AM EDT - 08/08/2025 11:59 PM EDT Hospital Encounter [address] [place] [address] Ayaan Corrales MD Discharge Disposition: Home or Self Care 08/07/2025 1:54 PM EDT - 08/07/2025 11:59 PM EDT Hospital Encounter [facility] [address] [place] [address] Ayaan Corrales MD Discharge Disposition: Home or Self Care 08/15/2024 Procedure Pass [address] [place] [address] from Last 3 Months Immunizations Immunization Administration [...] clinician's provided indication for this examination in [facility]: Urologic cancer, surveillance; History of [...] clinician's provided indication for this examination in [facility]:Urologic cancer, surveillance; History of kidney [...] EDT) SODIUM 139 133 - 146 mmol/L [facility] CHLORIDE 103 96 - 108 mmol/L [facility] POTASSIUM 4.5 3.3 - 5.1 mmol/L [facility] CO2 23 21 - 35 mmol/L [facility] BUN 10 6 - 19 mg/dL [facility] CREATININE 1.00 0.5 - 1.5 mg/dL [facility] GLUCOSE 130(H) 70 - 99 mg/dL [facility] CALCIUM 9.7 8.4 - 10.3 mg/dL [facility] EGFR 61 >59 mL/min/1.7 3m2 [facility] Comment:Estimated glomerular filtration rate calculated using the CKD-EPI refit equation. ANION GAP 18 10 - 20 mmol/L [facility] Blood 08/07/2025 2:18 PM EDT 08/07/2025 2:21 PM EDT Ayaan Corrales MD LAB BLOOD BKR ORDERABLES Final Result Performing Organization Address City/State/[facility] Co de Phone Number [facility] [address] [place] [address] from Last 3 Months Insurance MEDICARE PART A & B [facility] MEDICARE SUPPLEMENT MEDICARE PART A & B [facility] MEDICARE SUPPLEMENT MEDICARE PART A & B [facility] MEDICARE SUPPLEMENT MEDICARE PART A & B [facility] MEDICARE SUPPLEMENT MEDICARE PART A & B [employer] MEDICARE SUPPLEMENT MEDICARE PART A & B [employer] MEDICARE SUPPLEMENT MEDICARE PART A & B [facility] [employer] MEDICARE SUPPLEMENT MEDICARE PART A & B [facility] [employer] MEDICARE SUPPLEMENT MEDICARE PART A & B [facility] [employer] MEDICARE SUPPLEMENT Advance Directives For more information, please contact: [phone] (9AM - 5PM [facility], Wednesday-Wednesday) Documents on File Type Date Recorded 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 06/09/2018 10:59 AM 09-19 * Full Code (Presumed) (Latest Code Status on File) Date Activated Date Inactivated Comments 06/16/2018 1:39 PM 06/18/2018 3:12 PM Healthcare Agents on File Name Relationship Healthcare Agent Relationship Communication Orlni Hahn Spouse .Primary Health Care Agent (Proxy form on file) Care Teams Medical Staff Coordinator Relationship Specialty Start Date End Date Chicho Hargrove MD [address] [place] [address] [place] [address] PCP - General Internal Medicine 08/08/25 Fallon Dillard MD [address] [place] [address] [email or web address] Referring Physician Hematology and Oncology 04/29/18 Additional Source Comments The information contained in this document represents components of the legal health record. It is not the complete legal health record.[facility]
--- OUTSIDE RECORDS SUMMARY | 2025-09-23 10:24 | XMS_ITS | Patient Health Record ---
[facility] Address [address] [place] [address] Care Team Providers Care Burrer Marker Axle Name Role Phone Chicho Fraser Primary Care Provider Unavailabl e Black, Aye Unavailable [phone] Allergies Allergen (clinical drug ingredient) Drug/Non Drug [...] primary osteoarthritis of the ankle and/or foot (629130289) Primary osteoarthritis, left ankle and foot (M19.072) Active confirmed Problem Plantar fasciitis of right foot (70411909507708784 ) Plantar fasciitis of right foot (M72.2) Active confirmed Problem Interstitial myositis (36978437) Interstitial myositis of right foot (M60.171) Active confirmed Vital Signs Blood pressure diastolic 70 mm Hg 09/03/2025 Height 5ft3in in 09/03/2025 Blood pressure systolic 126 mm Hg 09/03/2025 Weight 136 lbs 09/03/2025 BMI 24.09 kg/m2 09/03/2025 Procedures Procedure Date Ordered Date Performed Result Body Sit e , Q9035-SSRRV/INJECT, JOINT/BURSA 05/24/2025 N/A , R9664-OUBAM/INJECT, JOINT/BURSA 09/03/2025 N/A Encounters Encounter Location Date Provider Diagnosis [address] [address] 02/12/2025 Aye Bliss Primary osteoarthrit is, left [...] Other hammer toe(s) (acquired), right foot M20.[address] [address] 05/24/2025 Aye Bliss Primary osteoarthrit is, left ankle and foot M19.072 ; Joint pain M25.50 ; Neuralgia and neuritis, unspecified M79.2 and Hypertrophy of bone, 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 [address] 09/03/2025 Aey Bliss Primary osteoarthrit is, left ankle and foot M19.072 ; Joint pain M25.50 ; Neuralgia and neuritis, unspecified M79.2 ; Hypertrophy of bone, 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 ; Pain in right foot M79.671 ; Plantar fasciitis of right foot M72.2 ; Calcaneal spur, right foot M77.31 ; Interstitial myositis of right foot M60.171 and Bursitis of right foot M77.51 [facility] [address] [address] 12/11/2024 Aye Bliss [address] [address] 02/12/2025 Aye Bliss Assessments Encounter Date Diagnosis [...] X ray : Foot, right 3V 04/24/2013 20079-Rssn Destruction, -02/08/2023 94370-Oiop Destruction, -12/08/2021 30347, A8287-TOLOB/INJECT, JOINT/BURSA 0 04/06/202276623, V1948-JVNZX/INJECT, JOINT/BURSA 1 24106, H6108-JKNKF/INJECT, JOINT/BURSA 0 02/08/202314690, O3615-NINLN/INJECT, JOINT/BURSA 1 11/02/201994374, R6746-HNCMK/INJECT, JOINT/BURSA 0 01/02/202175238, Y2615-CULNO/INJECT, JOINT/BURSA 0 05/05/2021, K6611-PFYSB/INJECT, JOINT/BURSA 1 09772, D2463-JXJAY/INJECT, JOINT/BURSA 0 12/08/2021 19695, J4622-WROXH/INJECT, JOINT/BURSA 0 04/08/2016 32061, V8795-NUSSN/INJECT, JOINT/BURSA 0 11/02/2016 86724, O1319-XLPTS/INJECT, JOINT/BURSA 0 01/26/2017 83881, R2420-SQFXC/INJECT, JOINT/BURSA 1 11/24/2016 30910, M7006-GTEPN/INJECT, JOINT/BURSA 0 12/10/2017 64501, F0660-KMCLC/INJECT, JOINT/BURSA 0 03/14/2018 53769, V3270-NJZFM/INJECT, JOINT/BURSA 1 10/29/2017 31032, I7600-KUTKV/INJECT, JOINT/BURSA 0 12/19/2018 38946, A5624-DPLWF/INJECT, JOINT/BURSA 0 04/20/2019 48675, A0231-IOQNJ/INJECT, JOINT/BURSA 1 10/24/2018 02764, L4057-OBHXG/INJECT, JOINT/BURSA 0 01/01/202079861, B1130-JVYQG/INJECT, JOINT/BURSA 0 06/21/2023 53107, T4266-HXVJO/INJECT, JOINT/BURSA 0 11/01/2023 45790, D9921-QLNHQ/INJECT, JOINT/BURSA 0 02/28/2024 02263, R1238-TDQIF/INJECT, JOINT/BURSA 1 10/17/2023 97924, X7377-DVHMO/INJECT, JOINT/BURSA 0 05/24/2025 73062, I4600-KKPFL/INJECT, JOINT/BURSA 1 11/03/2024 68388,E6567-XXM TENDON SHEATH/LIGAMENT 0 05/02/2020 Next Appt Details Provider Name:Aye Bliss , 12/24/2025 01:45:00 PM, [address] [place] [address], [place], [address], Insurance Providers Payer Name Payer Address Payer Phone Subscriber Number Group Number Insured Name Patient Relationship to Insured Coverage Start Date Coverage End Date Medicare National [employer] [address] [facility] [place] [address] [id number] Rebekah Suh Self - patient is the insured [employer] ([employer]) [address] [place] [address] [phone] [id number] Rebekah Suh Self - patient is [...] bladder prolapse 12/29/24 Hospitalization History Reason Date(Month/Year) [facility] for a day bad reaction to fentanyl w yuliana colonoscopy was done 08/2017
--- OUTSIDE RECORDS SUMMARY | 2025-09-23 10:24 | XMS_ITS | Clinical Summary ---
Author Organization [facility] Address [address] [place] [address] Care Team Providers Care Administrative Program Specialist Name Role Phone Regino Coleman MD [...] initially though review of the pathology by [facility], Department of Pathology suggests [...] date. Immunizations Immunization Administration Dates Next Due [employer] SARS-COV-2 12/14/2020 [employer] SARS-COV-2 08/06/2021 Pneumococcal Conjugate 13-Valent 12/29/2019 Family [...] complete this topic Insurance Medicare [facility] Medicare [facility] Care Teams Administrative Program Specialist Relationship Specialty Start Date End Date Regino Coleman MD [address] RICKY CARO PCP - General 10/21/20
== END 2025-09-23 10:16 | disposition home or self-care (01) ==
LOC: HO.MRI 10:15
PROVIDERS: PCP Student in an Organized Health Care Education/Training Program; Visit Provider Nurse Practitioner Family
DX: M47.816 Spondylosis without myelopathy or radiculopathy, lumbar region (principal); M54.16 Radiculopathy, lumbar region; M51.360 Other intervertebral disc degeneration, lumbar region with discogenic back pain only; G89.29 Other chronic pain
CPT/HCPCS: 72148

== ENCOUNTER → 2025-09-23 10:21 | Outpatient (BNV) | payer MEDICARE, OTHER, SELFPAY | PROVIDERS: PCP Student in an Organized Health Care Education/Training Program; Visit Provider Radiology Diagnostic Radiology | DX: M47.816 Spondylosis without myelopathy or radiculopathy, lumbar region (principal); Z90.5 Acquired absence of kidney | CPT/HCPCS: 72148 ==

== ENCOUNTER 2025-09-28 15:49 | Outpatient (AMB) | payer MEDICARE, OTHER, SELFPAY ==
--- OUTSIDE RECORDS SUMMARY | 2024-07-03 04:15 | XMS_ITS ---
Author Organization [facility] Address [address] [place] [address] Care Team Providers Care Transit Survey Worker Name Role Phone Chicho Hargrove Primary Care Provider UnavailAye Alva [phone] Encounters Encounter Location Date Provider Diagnosis [address] [address] 07/03/2024 Aye Bliss Plan Of Treatment Next Appt Details Provider Name:Aye Ruth Bliss , 12/24/2025 01:45:00 PM, [address] [place] [address], [phone], Progress Notes * Alexander HAHNeDOB: [birth year] (69 yo F)Acc No.[id number]:07/03/2024 Progress Note Patient: Rebekah POLO Provider: Alicja Bliss DPM :1955 A ge:68 Y S ex:Female Date:07/03/2024 Address:[address] [place] [phone] Pcp:Chicho Hargrove Subjective: * Chief Complaints: * * Medical History: Objective: * Vitals: Assessment: Plan: * Treatment: * Images: * The named appointment provid er may or may not be the originator of this progress note, and it is not deemed complete until electronically signed by the appointment provider. Sign off status: Pending * Provider: Alicja Bliss DPM Date: 0 07/03/2024 Generated for Chandler bentley/Brennon/Nirav on: 11/29/2024 04:40 PM EST
--- OUTSIDE RECORDS SUMMARY | 2024-12-11 03:15 | XMS_ITS ---
Author Organization [facility] Address [address] [place] [address] Care Team Providers Care Administrative Technician Name Role Phone Chicho Hargrove Primary Care Provider Unavailabl e Black, Aye Unavailable [phone] Allergies Allergen (clinical drug ingredient) Drug/Non Drug [...] Negative Encounters Encounter Location Date Provider Diagnosis [facility] [address] [address] 12/11/2024 Aye Bliss Plan Of Treatment Next Appt Details Provider Name:Aye Bliss , 12/24/2025 01:45:00 PM, [address] [place] [address], [address], Progress Notes * Alexander HAHNeDOB: [birth year] (69 yo F)Acc No.[id number]:12/11/2024 Progress Note Patient: Rebekah POLO Provider: Alicja Bliss DPM :1955 A ge:69 Y S ex:Female Date:12/11/2024 Address:[address] [place] [address] Pcp:Chicho Hargrove Subjective: * Chief Complaints: * * ROS: [...] denies.? C ardiovascular: Pacemaker d enies. M MERCHANDISE CLERK a dmits. W PW d enies. C [...] eakness d enies. P odiatric: Comments S [facility] for comments. I nteg.: Marques d [...] 0 12/11/2024 Generated for Chandler bentley/Brennon/Nirav on: 11/29/2024 04:40 PM EST
--- OUTSIDE RECORDS SUMMARY | 2025-07-04 03:30 | XMS_ITS ---
Author Organization [facility] Address [address] [place] [address] Care Team Providers Care Family Day Care Provider Name Role Phone HANS FANG M.D. Primary Care Provider Amilcar Oconnor [phone] REASON FOR VISIT gerd,IBS,change in bowel habits Encounters Encounter Location Date Provider Diagnosis [facility] [place] [address] [place] [address] Adrian[place]lsen [place] [phone] 07/04/2025 Amilcar Sosa Plan Of Treatment No Information Progress Notes * CORDELL COVARRUBIAS EDOB:[birth year] (69 yo F)Acc No.[id number]:07/04/2025 EGD and COL/MAC Patient: CORDELL POLO Provider: Gary Sosa MD :1955 A ge:69 Y S ex:Female Date:07/04/2025 Address:[address] [place], [place] Pcp:HANS FANG M.D. Subjective: * Chief Complaints: * g erd,IBS,change in bowel habits Billing Information: * Procedure Codes: * The named appointment provid er may or may not be the originator of this progress note, and it is not deemed complete until electronically signed by the appointment provider. Sign off status: Pending * Provider: Gary Sosa MD Date: 0 07/04/2025 Generated for Jaii ng/Famanjulag/eTransmitting on: 1 11/29/2024 04:41 PM EST
--- OUTSIDE RECORDS SUMMARY | 2025-08-27 03:15 | XMS_ITS ---
Author Organization [facility] Address [address] [place] [id number] Care Team Providers Care Marina Sales And Service Supervisor Name Role Phone Chicho Hargrove Primary Care Provider Unavailabl Aye Foster Unavailable [phone] Russ Encounters Encounter Location Date Provider Diagnosis [address] [address] 08/27/2025 Aye Bliss Plan Of Treatment Next Appt Details Provider Name:Aye A Izaiah , 12/24/2025 01:45:00 PM, [address] [place] [address], [phone], Progress Notes * Alexander HAHNeDOB: [birth year] (69 yo F)Acc No.[id number]:08/27/2025 Progress Note Patient: Rebekah POLO Provider: Alicja Bliss DPM :1955 A ge:69 Y S ex:Female Date:08/27/2025 Address:[address] [place] [phone] Pcp:Chicho Hargrove Subjective: * Chief Complaints: * [address] Russ[address] * Medical History: Objective: * Vitals: Assessment: Plan: * Treatment: * Images: * The named appointment provid er may or may not be the originator of this progress note, and it is not deemed complete until electronically signed by the appointment provider. Sign off status: Pending * Provider: Alicja Bliss DPM Date: 10/27/2024 Generated for Chandler Curtis on: 11/29/2024 04:41 PM EST
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
[2025-09-28 15:58] VITALS: BP 149/70; PULSE 75; O2SAT 99; BMI 23.9
--- OUTSIDE RECORDS SUMMARY | 2025-09-28 16:41 | XMS_ITS | Clinical Summary ---
Author Organization [facility] Address [address] [place] [address] Phone Care Team Providers Care Inspector Scales Name Role Phone Fallon Dillard MD Unavailable [phone] Chicho Hargrove MD Primary Care Provider [...] with hand surgeon Dr. Mary Boss in [place] Regular use of meloxicam previously effective, but [...] will continue to follow up with her strategic consultant to optimize renal function. Assessment & Plan [...] will continue to follow up with her strategic consultant to optimize renal function. Assessment & Plan [...] initially though review of the pathology by [facility], Department of Pathology suggests that it [...] Team Description 09/04/2025 11:50 AM EST Telemedicine [facility] [address] [address] Ayaan Corrales MD Personal history of kidney cancer (Primary Dx) 08/08/2025 9:34 AM EDT - 08/08/2025 11:59 PM EDT Hospital Encounter [facility], X-Ray - [address] [place] [address] Ayaan Corrales MD Discharge Disposition: Home or Self Care 08/08/2025 9:34 AM EDT - 08/08/2025 11:59 PM EDT Hospital Encounter [address] [place] [address] Ayaan Corrales MD Discharge Disposition: Home or Self Care 08/07/2025 1:54 PM EDT - 08/07/2025 11:59 PM EDT Hospital Encounter [facility] [address] [place] [address] Ayaan Corrales MD Discharge Disposition: Home or Self Care 08/15/2024 Procedure Pass [address] [place] [address] from Last 3 Months Immunizations Immunization Administration [...] follow up is recommended. Ayaan Corrales MD IMG MR ABDOMEN Final Result * XR CHEST PA AND LATERAL 2 VIEWS (08/08/2025 11:11 AM EDT) Anatomical Region Laterality Modality Chest Computed Radiogr aphy 08/08/2025 12:0 5 PM EDT Impressions 08/08/2025 12:06 PM EDT No acute findings. Narrative 08/08/2025 12:06 PM EDT XR CHEST PA AND LATERAL 2 VIEWS Referring clinician's provided indication for this examination in [facility]: Urologic cancer, surveillance; History of kidney [...] clinician's provided indication for this examination in [facility]:Urologic cancer, surveillance; History of kidney cancer COMPARISON: XR CHEST PA AND LATERAL 2 VIEWS FINDINGS: Devices/Tubes/Lines: None. Lungs: The lungs are clear. No focal consolidation or pulmonary edema. Pleura: No pleural effusion or pneumothorax. Heart/Mediastinum: Cardiac silhouette and mediastinal contours are withinnormal limits. Bones/Soft Tissues: No acute osseous finding. Partially visualized upper abdomen: Unremarkable. IMPRESSION: No acute findings. us Ayaan Corrales MD IMG XR CHEST Final Result * (ABNORMAL) Basic metabolic panel (08/07/2025 2:18 PM EDT) SODIUM 139 133 - 146 mmol/L [facility] CHLORIDE 103 96 - 108 mmol/L [facility] POTASSIUM 4.5 3.3 - 5.1 mmol/L [facility] CO2 23 21 - 35 mmol/L [facility] BUN 10 6 - 19 mg/dL [facility] CREATININE 1.00 0.5 - 1.5 mg/dL [facility] GLUCOSE 130(H) 70 - 99 mg/dL [facility] CALCIUM 9.7 8.4 - 10.3 mg/dL [facility] EGFR 61 >59 mL/min/1.7 3m2 [facility] Comment:Estimated glomerular filtration rate calculated using the CKD-EPI refit equation. ANION GAP 18 10 - 20 mmol/L [facility] Blood 08/07/2025 2:18 PM EDT 08/07/2025 2:21 PM EDT Ayaan Corrales MD LAB BLOOD BKR ORDERABLES Final Result Performing Organization Address City/State/[facility] Co de Phone Number [address] [address] from Last 3 Months Insurance MEDICARE PART A & B Member Subscriber Plan / Payer (Ef fective 2019-Present) Name:Rebekah Hahn Member ID:[id number] Relation to Subscriber:Self Name:Rebekah Hahn Subscriber ID:[id number] Payer ID:[id number] Group ID:Not on file Type:Medicare Address: [facility] [employer] [facility]. [address] [facility] [address] [employer] MEDICARE SUPPLEMENT MEDICARE PART A & B [facility] EXT[employer]ION MEDICARE SUPPLEMENT MEDICARE PART A & B MEDICARE SUPPLEMENT MEDICARE PART A & B [facility] MEDICARE SUPPLEMENT MEDICARE PART A & B [employer] MEDICARE SUPPLEMENT MEDICARE PART A & B [employer] [place] [address] MEDICARE PART A & B [facility] MEDICARE SUPPLEMENT MEDICARE PART A & B [facility] EXTENSION MEDICARE SUPPLEMENT MEDICARE PART A & B Member Subscriber Plan / Payer ( fective 2019-Present) Name:Rebekah Hahn Stephen Member ID:[id number] Relation to Subscriber:Self Name:Rebekah Hahn Subscriber ID:[id number] Payer ID:[id number] Group ID:Not on file Type:Medicare Address: [employer] [address] [place] [phone] [facility] EXTENSION MEDICARE SUPPLEMENT Advance Directives For more information, please contact: [phone] (9AM - 5PM [facility], Wednesday-Wednesday) Documents on File Type Date Recorded Patient Reel Repairer Expl anation Healthcare Proxy 06/09/2018 10:59 AM 12-10 -2015 * Full Code (Presumed) (Latest Code Status on File) Date Activated Date Inactivated Comments 06/16/2018 1:39 PM 06/18/2018 3:12 PM Healthcare Agents on File Name Relationship Healthcare Agent Relationship Communication Orlin Hahn Spouse .Primary Health Care Agent (Proxy form on file) Care Teams Inspector Scales Relationship Specialty Start Date End Date Chicho Hargrove MD [address] [place] [address] [place] [address] PCP - General Internal Medicine 08/08/25 Fallon Dillard MD [address] [place] [address] [email or web address] Referring Physician Hematology and Oncology 04/29/18 Additional Source Comments The information contained in this document represents components of the legal health record. It is not the complete legal health record.[facility]
--- OUTSIDE RECORDS SUMMARY | 2025-09-28 16:41 | XMS_ITS | Encounter Summary ---
Author Organization [facility] Address [address] [place] [address] Phone Care Team Providers Care Word Processor Technician Name Role Phone Regino Coleman MD Primary Care Provider Fallon Dillard MD Unavailable [phone] Jr Hogue MD Primary Care Provid er Chicho Harrgove MD Primary Care Provider [phone] Encounter Details Date Type Department Care Team (Late st Contact Info) Description 06/16/2018 Procedure Pass [facility] Periop [address] [place] [address] Social History Tobacco Use Types Packs/Day Years [...] on filedocumented in this encounter Care Teams Word Processor Technician Relationship Specialty Start Date End Date Regino Coleman MD [address] [place] [address] Dr [place] [address] PCP - General Internal Medicine 04/29/18 04/04/25 Jr Hogue MD [address] [place] [address] PCP - General Internal Medicine 04/05/25 08/07/25 Chicho Hargrove MD [address] [address] PCP - General Internal Medicine 08/08/25 Fallon Dillard MD [address] [place] [address] [email or web address] Referring Physician Hematology and Oncology 04/29/18 documented as of this encounter Additional Source Comments The information contained in this document represents components of the legal health record. It is not the complete legal health record.[facility]
--- OUTSIDE RECORDS SUMMARY | 2025-09-28 16:41 | XMS_ITS | Encounter Summary ---
Author Organization [facility] Address [address] [place] [address] Phone Care Team Providers Care Network Control Technician Name Role Phone Regino Coleman MD Primary Care Provider Fallon Dillard MD Unavailable [phone] Jr Hogue MD Primary Care Provid er Chicho Hargrove MD Primary Care Provider Encounter Details Date Type Department Care Team (Late st Contact Info) Description 07/02/2020 Procedure Pass [facility], [address] [address] Social History Tobacco Use Types Packs/Day Years [...] on filedocumented in this encounter Care Teams Network Control Technician Relationship Specialty Start Date End Date Rgeino Coleman MD [address] [place] [address] Dr [place] [address] PCP - General Internal Medicine 04/29/18 04/04/25 Jr Hogue MD [address] [place] [address] PCP - General Internal Medicine 04/05/25 08/07/25 Chicho Hargrove MD [address] [place] [address] [address] PCP - General Internal Medicine 08/08/25 Fallon Dillard MD [address] [place] [address] [email or web address] Referring Physician Hematology and Oncology 04/29/18 documented as of this encounter Additional Source Comments The information contained in this document represents components of the legal health record. It is not the complete legal health record.[facility]
--- OUTSIDE RECORDS SUMMARY | 2025-09-28 16:41 | XMS_ITS | Encounter Summary ---
Author Organization [facility] Address [address] [place] [address] Phone Care Team Providers Care Building Maintenance Custodian Name Role Phone Regino Coleman MD Primary Care Provider Fallon Dillard MD Unavailable [phone] Jr Hogue MD Primary Care Provid er Chicho Hargrove MD Primary Care Provider Encounter Details Date Type Department Care Team (Late st Contact Info) Description 05/24/2018 Procedure Pass [facility] OUTSIDE IMG [address] [place] [address] Social History Tobacco Use Types Packs/Day Years [...] on filedocumented in this encounter Care Teams Building Maintenance Custodian Relationship Specialty Start Date End Date Regino Coleman MD [address] [place] [address] Dr DYER RICKY Bronson [address] PCP - General Internal Medicine 04/29/18 04/04/25 Jr Hogue MD [address] [place] [address] PCP - General Internal Medicine 04/05/25 08/07/25 Chicho Hargrove MD [address] [place] [address] PCP - General Internal Medicine 08/08/25 Fallon Dillard MD [address] [place] [address] [email or web address] Referring Physician Hematology and Oncology 04/29/18 documented as of this encounter Additional Source Comments The information contained in this document represents components of the legal health record. It is not the complete legal health record.[facility]
--- OUTSIDE RECORDS SUMMARY | 2025-09-28 16:41 | XMS_ITS | Encounter Summary ---
Author Organization [facility] Address [address] [place] [address] Phone Care Team Providers Care Neck Cutter Name Role Phone Regino Coleman MD Primary Care Provider Fallon Dillard MD Unavailable [phone] Jr Hogue MD Primary Care Provid er Chicho Hargrove MD Primary Care Provider Encounter Details Date Type Department Care Team (Late st Contact Info) Description 05/11/2022 Procedure Pass [facility], [address] [address] Social History Tobacco Use Types Packs/Day Years [...] on filedocumented in this encounter Care Teams Neck Cutter Relationship Specialty Start Date End Date Regino Coleman MD [address] [place] [address] Dr Jones RICKY [address] PCP - General Internal Medicine 04/29/18 04/04/25 Jr Hogue MD [address] [place] [address] Drive Rob [address] [place] [address] PCP - General Internal Medicine 04/05/25 08/07/25 Chicho Hargrove MD [address] [place] [address] [address] PCP - General Internal Medicine 08/08/25 Fallon Dillard MD [address] [place] [address] [email or web address] Referring Physician Hematology and Oncology 04/29/18 documented as of this encounter Additional Source Comments The information contained in this document represents components of the legal health record. It is not the complete legal health record.[facility]
--- OUTSIDE RECORDS SUMMARY | 2025-09-28 16:42 | XMS_ITS | Encounter Summary ---
Author Organization [facility] Address [address] [place] [address] Phone Care Team Providers Care Jute Bag Clipper Name Role Phone Regino Coleman MD Primary Care Provider Fallon Dillard MD Unavailable [phone] Jr Hogue MD Primary Care Provid er Chicho Hargrove MD Primary Care Provider Encounter Details Date Type Department Care Team (Late st Contact Info) Description 07/07/2022 Procedure Pass [facility], [address] [address] Social History Tobacco Use Types Packs/Day Years [...] on filedocumented in this encounter Care Teams Jute Bag Clipper Relationship Specialty Start Date End Date Regino Coleman MD [address] [place] [address] Dr Jones RICKY [address] PCP - General Internal Medicine 04/29/18 04/04/25 Jr Hogeu MD [address] [place] [address] Drive Rob [address] [place] [address] PCP - General Internal Medicine 04/05/25 08/07/25 Chicho Hargrove MD [address] [place] [address] [address] PCP - General Internal Medicine 08/08/25 Fallon Dillard MD [address] [place] [address] [email or web address] Referring Physician Hematology and Oncology 04/29/18 documented as of this encounter Additional Source Comments The information contained in this document represents components of the legal health record. It is not the complete legal health record.[facility]
--- OUTSIDE RECORDS SUMMARY | 2025-09-28 16:42 | XMS_ITS | Encounter Summary ---
Author Organization [facility] Address [address] [place] [address] Phone Care Team Providers Care Mobile Home Mechanic Name Role Phone Regino Coleman MD Primary Care Provider Fallon Dillard MD Unavailable [phone] Jr Hogue MD Primary Care Provid er Chicho Hargrove MD Primary Care Provider Encounter Details Date Type Department Care Team (Late st Contact Info) Description 06/10/2021 Ancillary Orders [facility],Outside Imaging [address] [place], [place] [id number] System, Provider [place] In, [place] [address] Social History Tobacco Use Types Packs/Day Years [...] on filedocumented in this encounter Care Teams Mobile Home Mechanic Relationship Specialty Start Date End Date Regino Coleman MD [address] [place] [address] PCP - General Internal Medicine 04/29/18 04/04/25 Jr Hogue MD [address] [place] [address] PCP - General Internal Medicine 04/05/25 08/07/25 Chicho Hargrove MD [address] [place] [address] PCP - General Internal Medicine 08/08/25 Fallon Dillard MD [address] [place] [address] [email or web address] Referring Physician Hematology and Oncology 04/29/18 documented as of this encounter Additional Source Comments The information contained in this document represents components of the legal health record. It is not the complete legal health record.[facility]
--- OUTSIDE RECORDS SUMMARY | 2025-09-28 16:42 | XMS_ITS | Clinical Summary ---
Author Organization [facility] Address [address] [place] [address] Care Team Providers Care Exploration Manager Name Role Phone Regino Coleman MD Primary Care Provider [phone] Allergies Active Allergy Reactions Criticality Noted Date [...] initially though review of the pathology by [facility], Department of Pathology suggests that it [...] date. Immunizations Immunization Administration Dates Next Due [employer] SARS-COV-2 12/14/2020 [employer] SARS-COV-2 08/06/2021 Pneumococcal Conjugate 13-Valent 12/29/2019 Family [...] age to complete this topic Insurance Medicare [facility] Medicare [facility] Care Teams Exploration Manager Relationship Specialty Start Date End Date Regino Coleman MD [address] RICKY CARO PCP - General 10/21/20
--- OUTSIDE RECORDS SUMMARY | 2025-09-28 16:42 | XMS_ITS | Encounter Summary ---
Author Organization [facility] Address [address] [place] [address] Phone Care Team Providers Care Welder Pipe Making Name Role Phone Regino Coleman MD Primary Care Provider Fallon Dillard MD Unavailable [phone] Jr Hogue MD Primary Care Provid er Chicho Hargrove MD Primary Care Provider [phone] Encounter Details Date Type Department Care Team (Late st Contact Info) Description 01/05/2019 Procedure Pass [facility] MR Imaging, Black [address] [place] [address] Social History Tobacco Use Types Packs/Day Years [...] on filedocumented in this encounter Care Teams Welder Pipe Making Relationship Specialty Start Date End Date Regino Coleman MD [address] [place] [address] Dr Greenke RICKY [address] PCP - General Internal Medicine 04/29/18 04/04/25 Jr Hogue MD [address] [facility] [address] [facility] [address] Rob [address] [place] [address] PCP - General Internal Medicine 04/05/25 08/07/25 Chicho Hargrove MD [address] [place] [address] [address] [address] PCP - General Internal Medicine 08/08/25 Fallon Dillard MD [address] [place] [address] [email or web address] Referring Physician Hematology and Oncology 04/29/18 documented as of this encounter Additional Source Comments The information contained in this document represents components of the legal health record. It is not the complete legal health record.[facility]
--- OUTSIDE RECORDS SUMMARY | 2025-09-28 16:42 | XMS_ITS | Encounter Summary ---
Author Organization [facility] Address [address] [place] [address] Phone Care Team Providers Care Forest Resource Specialist Name Role Phone Regino Coleman MD Primary Care Provider Fallon Dillard MD Unavailable [phone] Jr Hogue MD Primary Care Provid er Chicho Hargrove MD Primary Care Provider [phone] Encounter Details Date Type Department Care Team (Late st Contact Info) Description 06/10/2021 Ancillary Orders [facility],Outside Imaging [address] [place], [place] [id number] System, Provider [place] In, [place] [address] Social History Tobacco Use Types Packs/Day Years [...] on filedocumented in this encounter Care Teams Forest Resource Specialist Relationship Specialty Start Date End Date Regino Coleman MD [address] [place] [address] PCP - General Internal Medicine 04/29/18 04/04/25 Jr Hogue MD [address] [place] [address] PCP - General Internal Medicine 04/05/25 08/07/25 Chicho Hargrove MD [address] [place] [address] PCP - General Internal Medicine 08/08/25 Fallon Dillard MD [address] [place] [address] [email or web address] Referring Physician Hematology and Oncology 04/29/18 documented as of this encounter Additional Source Comments The information contained in this document represents components of the legal health record. It is not the complete legal health record.[facility]
--- OUTSIDE RECORDS SUMMARY | 2025-09-28 16:42 | XMS_ITS | Encounter Summary ---
Author Organization [facility] Address [address] [place] [address] [place] [address] Phone Care Team Providers Care Senior Back End Java Developer Name Role Phone Regino Coleman MD Primary Care Provider Fallon Dillard MD Unavailable [phone] Jr Hogue MD Primary Care Provid er Chicho Hargrove MD Primary Care Provider [phone] Encounter Details Date Type Department Care Team (Late st Contact Info) Description 06/23/2018 Procedure Pass [facility] Radiology [address] [place] [address] Social History Tobacco Use Types Packs/Day Years [...] filedocumented in this encounter Care Teams Senior Back End Java Developer Relationship Specialty Start Date End Date Regino Coleman MD [address] [place] [address] Dr Jones RICKY [address] PCP - General Internal Medicine 04/29/18 04/04/25 Jr Hogue MD [address] Rob [address] [place] [address] PCP - General Internal Medicine 04/05/25 08/07/25 Chicho Hargrove MD [address] [place] [address] [address] PCP - General Internal Medicine 08/08/25 Fallon Dillard MD [address] [place] [address] [email or web address] Referring Physician Hematology and Oncology 04/29/18 documented as of this encounter Additional Source Comments The information contained in this document represents components of the legal health record. It is not the complete legal health record.[facility]
--- OUTSIDE RECORDS SUMMARY | 2025-09-28 16:42 | XMS_ITS | Encounter Summary ---
Author Organization [facility] Address [address] [place] [address] Phone Care Team Providers Care Fitter Welder Name Role Phone Regino Coleman MD Primary Care Provider [phone] Encounter Details Date Type Department Care Team (Late st Contact Info) Description 01/06/2023 Telephone [facility] [address] [place] [address] Ying Medrano Social History Tobacco [...] appt w/ [facility] and fax order to [facility] and they will call and book sooner appt. Pt stated that she is going to see her res habilitation assistant in 2 weeks and her MD stated she will do th US in office. Pls advise if you would like her res habilitation assistant to do US or move forward with the hospital. Her res habilitation assistant does not have a radiology department. * Telephone Encounter - Ying Medrano - 01/06/2023 9:51 AM EDT PT says she has renal ultrasound scheduled for 03/01/23. PT wants to be seen sooner, she is asking for an earlier appointment and is willing to commute to [place] if she can get a sooner appointment. documented in this encounter Plan of Treatment Not on file documented as of this encounter Visit Diagnoses Not on filedocumented in this encounter Care Teams Fitter Welder Relationship Specialty Start Date End Date Regino Coleman MD [address] [place] [address] DR[address] [place] PCP - General 10/21/20 documented as of this encounter
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
--- OUTSIDE RECORDS SUMMARY | 2025-09-28 16:42 | XMS_ITS | Encounter Summary ---
Author Organization [facility] Address [address] [place] [address] Phone Care Team Providers Care Mold Filling Operator Name Role Phone Regino Coleman MD Primary Care Provider Fallon Dillard MD Unavailable [phone] Jr Hogue MD Primary Care Provid er Chicho Hargrove MD Primary Care Provider [phone] Encounter Details Date Type Department Care Team (Late st Contact Info) Description 06/15/2019 Procedure Pass [facility] MR Imaging, Black [address] [place] [address] Social History Tobacco Use Types Packs/Day Years [...] filedocumented in this encounter Care Teams Mold Filling Operator Relationship Specialty Start Date End Date Regino Coleman MD [address] [place] [address] Dr Greenke RICKY [address] PCP - General Internal Medicine 04/29/18 04/04/25 Jr Hogue MD [address] [facility] Rob [address] [place] [address] PCP - General Internal Medicine 04/05/25 08/07/25 Chicho Hargrove MD [address] [place] [address] [address] PCP - General Internal Medicine 08/08/25 Fallon Dillard MD [address] [place] [address] [email or web address] Referring Physician Hematology and Oncology 04/29/18 documented as of this encounter Additional Source Comments The information contained in this document represents components of the legal health record. It is not the complete legal health record.[facility]
--- OUTSIDE RECORDS SUMMARY | 2025-09-28 16:42 | XMS_ITS | Encounter Summary ---
Author Organization [facility] Address [address] [place] [address] Phone Care Team Providers Care Citizenship Teacher Name Role Phone Regino Coleman MD Primary Care Provider Fallon Dillard MD Unavailable [phone] Jr Hogue MD Primary Care Provid er Chicho Hargrove MD Primary Care Provider [phone] Encounter Details Date Type Department Care Team (Late st Contact Info) Description 04/27/2019 Procedure Pass [facility] MR Imaging, Black [address] [place] [address] Social History Tobacco Use Types Packs/Day Years [...] on filedocumented in this encounter Care Teams Citizenship Teacher Relationship Specialty Start Date End Date Regino Coleman MD [address] [place] [address] Dr Greenke RICKY [address] PCP - General Internal Medicine 04/29/18 04/04/25 Jr Hogue MD [address] Rob [address] [place] [address] PCP - General Internal Medicine 04/05/25 08/07/25 Chicho Hargrove MD [address] [place] [address] [address] PCP - General Internal Medicine 08/08/25 Fallon Dillard MD [address] [place] [address] [email or web address] Referring Physician Hematology and Oncology 04/29/18 documented as of this encounter Additional Source Comments The information contained in this document represents components of the legal health record. It is not the complete legal health record.[facility]
--- OUTSIDE RECORDS SUMMARY | 2025-09-28 16:42 | XMS_ITS | Encounter Summary ---
Author Organization [facility] Address [address] [place] [address] Phone Care Team Providers Care Agency Director Name Role Phone Regino Coleman MD Primary Care Provider Fallon Dillard MD Unavailable [phone] Jr Hogue MD Primary Care Provid er Chicho Hargrove MD Primary Care Provider [phone] Encounter Details Date Type Department Care Team (Late st Contact Info) Description 06/10/2021 Ancillary Orders [facility],Outside Imaging [address] [place], [place] [id number] System, Provider [place] In, [place] [address] Social History Tobacco Use Types Packs/Day Years [...] on filedocumented in this encounter Care Teams Agency Director Relationship Specialty Start Date End Date Regino Coleman MD [address] [place] [address] PCP - General Internal Medicine 04/29/18 04/04/25 Jr Hogue MD [address] [place] [address] PCP - General Internal Medicine 04/05/25 08/07/25 Chicho Hargrove MD [address] [place] [address] PCP - General Internal Medicine 08/08/25 Fallon Dillard MD [address] [place] [address] [email or web address] Referring Physician Hematology and Oncology 04/29/18 documented as of this encounter Additional Source Comments The information contained in this document represents components of the legal health record. It is not the complete legal health record.[facility]
--- OUTSIDE RECORDS SUMMARY | 2025-09-28 16:42 | XMS_ITS | Encounter Summary ---
Author Organization [facility] Address [address] [place] [address] Phone Care Team Providers Care Toilet Products Molder Name Role Phone Regino Coleman MD Primary Care Provider [phone] Encounter Details Date Type Department Care Team (Late st Contact Info) Description 11/25/2022 Telephone [facility] [address] [place] [address] Ying Medrano Social History Tobacco [...] called to relay that Dr. Reyes from [facility] had recently put a stent in [...] on filedocumented in this encounter Care Teams Toilet Products Molder Relationship Specialty Start Date End Date Regino Coleman MD [address] VIR[place]IER[place] FAUSTIN PCP - General 10/21/20 documented as of this encounter
--- OUTSIDE RECORDS SUMMARY | 2025-09-28 16:42 | XMS_ITS | Patient Health Record ---
Author Organization [facility] Address [address] [facility] [place] [address] Care Team Providers Care Karate Instructor Name Role Phone Chicho Hargrove Primary Care Provider Unavailabl e Black, Aye Unavailable [phone] Allergies Allergen (clinical drug ingredient) Drug/Non Drug [...] primary osteoarthritis of the ankle and/or foot (884199439) Primary osteoarthritis, left ankle and foot (M19.072) Active confirmed Problem Plantar fasciitis of right foot (15649535407878498 ) Plantar fasciitis of right foot (M72.2) Active confirmed Problem Interstitial myositis (09977988) Interstitial myositis of right foot (M60.171) Active confirmed Vital Signs Blood pressure diastolic 70 mm Hg 09/03/2025 Height 5ft3in in 09/03/2025 Blood pressure systolic 126 mm Hg 09/03/2025 Weight 136 lbs 09/03/2025 BMI 24.09 kg/m2 09/03/2025 Procedures Procedure Date Ordered Date Performed Result Body Sit e , X9664-NSKJK/INJECT, JOINT/BURSA 05/24/2025 N/A , D4223-JSVUN/INJECT, JOINT/BURSA 09/03/2025 N/A Encounters Encounter Location Date Provider Diagnosis [place] [address] [address] 02/12/2025 Aye Bliss Primary osteoarthrit is, left [...] Other hammer toe(s) (acquired), right foot M20.[address] [address] 05/24/2025 Aye Bliss Primary osteoarthrit is, left ankle and foot M19.072 ; Joint pain M25.50 ; Neuralgia and neuritis, unspecified M79.2 and Hypertrophy of bone, 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 [address] 09/03/2025 Aye Bliss Primary osteoarthrit is, left ankle and foot M19.072 ; Joint pain M25.50 ; Neuralgia and neuritis, unspecified M79.2 ; Hypertrophy of bone, 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 ; Pain in right foot M79.671 ; Plantar fasciitis of right foot M72.2 ; Calcaneal spur, right foot M77.31 ; Interstitial myositis of right foot M60.171 and Bursitis of right foot M77.51 [facility] [address] [address] 12/11/2024 Aye Bliss [address] [address] 02/12/2025 Aye Bliss Assessments Encounter Date Diagnosis [...] X ray : Foot, right 3V 04/24/2013 17006-Sheh Destruction, -02/08/2023 75934-Cepf Destruction, 1-12/08/2021 77685, G2372-UZHZR/INJECT, JOINT/BURSA 0 04/06/2022 47694, V1589-QMRHB/INJECT, JOINT/BURSA 1 42402, Y7309-XZNEA/INJECT, JOINT/BURSA 0 02/08/202391090, W2514-BNDLY/INJECT, JOINT/BURSA 1 11/02/201927962, B0575-PNHPB/INJECT, JOINT/BURSA 0 01/02/2021 66311, W8662-DNPVE/INJECT, JOINT/BURSA 0 05/05/2021, D9392-BJHST/INJECT, JOINT/BURSA 1 64604, O5971-XCSYY/INJECT, JOINT/BURSA 0 12/08/2021 67635, G3741-SOMVX/INJECT, JOINT/BURSA 0 04/08/2016 53957, Y1380-HUPGW/INJECT, JOINT/BURSA 0 11/02/2016 56099, T9183-PCQGA/INJECT, JOINT/BURSA 0 01/26/2017 24351, C1081-HJWDE/INJECT, JOINT/BURSA 1 11/24/2016 26912, N4890-UMZXY/INJECT, JOINT/BURSA 0 12/10/2017 78889, M9486-RHIWQ/INJECT, JOINT/BURSA 0 03/14/2018 31628, F1652-WYFFN/INJECT, JOINT/BURSA 1 10/29/2017 79583, Q2240-TBFBI/INJECT, JOINT/BURSA 0 12/19/2018 59224, Q9213-FGNRJ/INJECT, JOINT/BURSA 0 04/20/2019 48026, Y2587-AZAWI/INJECT, JOINT/BURSA 1 10/24/2018 36543, Q4036-TGGGI/INJECT, JOINT/BURSA 0 01/01/202015533, I2184-NGQAZ/INJECT, JOINT/BURSA 0 06/21/2023 97447, R3892-YHOTC/INJECT, JOINT/BURSA 0 11/01/2023 36233, L2798-EQOXM/INJECT, JOINT/BURSA 0 02/28/2024 24702, N0877-OHRGV/INJECT, JOINT/BURSA 1 10/17/2023 18554, J5571-EQOJP/INJECT, JOINT/BURSA 0 05/24/2025 84972, T7533-TLUNX/INJECT, JOINT/BURSA 1 11/03/2024 39617,J5866-ASR TENDON SHEATH/LIGAMENT 0 05/02/2020 Next Appt Details Provider Name:Aye Bliss , 12/24/2025 01:45:00 PM, [address] [place] [address], [id number], Insurance Providers Payer Name Payer Address Payer Phone Subscriber Number Group Number Insured Name Patient Relationship to Insured Coverage Start Date Coverage End Date Medicare National Govt Svcs Inc [address] [place] [address] [id number] Rebekah Suh Self - patient is the insured [employer] ([employer]) [address] [place] [address] [id number] Rebekah Suh Self - patient is [...] left kidney removed 06/16/18 Incisional Hernia repair-daystay 2/19/20 20 hysterectomy, bladder 2/8/23 Hernia Surgery 08/03/23 surgery for bladder prolapse 12/29/24 Hospitalization History Reason Date(Month/Year) [facility] [place] for a day bad reaction to fentanyl w hen colonoscopy was done 08/2017
--- OUTSIDE RECORDS SUMMARY | 2025-09-28 16:42 | XMS_ITS | Encounter Summary ---
Author Organization [facility] Address [address] [place] [address] Phone Care Team Providers Care Journeyman Pipe Fitter Name Role Phone Regino Coleman MD Primary Care Provider Fallon Dillard MD Unavailable [phone] Jr Hogue MD Primary Care Provid er Chicho Hargrove MD Primary Care Provider [phone] Encounter Details Date Type Department Care Team (Late st Contact Info) Description 08/19/2023 Procedure Pass [facility], [address] [address] Social History Tobacco Use Types Packs/Day Years [...] on filedocumented in this encounter Care Teams Journeyman Pipe Fitter Relationship Specialty Start Date End Date Regino Coleman MD [address] [place] [address] PCP - General Internal Medicine 04/29/18 04/04/25 Jr Hogue MD [address] [place] [address] PCP - General Internal Medicine 04/05/25 08/07/25 Chicho Hargrove MD [address] [place] [address] PCP - General Internal Medicine 08/08/25 Fallon Dillard MD [address] [place] [address] [email or web address] Referring Physician Hematology and Oncology 04/29/18 documented as of this encounter Additional Source Comments The information contained in this document represents components of the legal health record. It is not the complete legal health record.[facility]
--- OUTSIDE RECORDS SUMMARY | 2025-09-28 16:42 | XMS_ITS | Encounter Summary ---
Author Organization [facility] Address [address] [place] [address] Phone Care Team Providers Care Striker Out Name Role Phone Regino Coleman MD Primary Care Provider Fallon Dillard MD Unavailable [phone] Jr Hogue MD Primary Care Provid er Chicho Hargrove MD Primary Care Provider [phone] Encounter Details Date Type Department Care Team (Late st Contact Info) Description 08/15/2024 Procedure Pass [address] [place] [address] Social History Tobacco Use Types Packs/Day Years [...] on filedocumented in this encounter Care Teams Striker Out Relationship Specialty Start Date End Date Regino Coleman MD [address] [place] [address] PCP - General Internal Medicine 04/29/18 04/04/25 Jr Hogue MD [address] [place] [address] PCP - General Internal Medicine 04/05/25 08/07/25 Chicho Hargrove MD [address] [place] [address] PCP - General Internal Medicine 08/08/25 Fallon Dillard MD [address] [place] [address] [email or web address] Referring Physician Hematology and Oncology 04/29/18 documented as of this encounter Additional Source Comments The information contained in this document represents components of the legal health record. It is not the complete legal health record.[facility]
--- OUTSIDE RECORDS SUMMARY | 2025-09-28 16:42 | XMS_ITS | Encounter Summary ---
Author Organization [facility] Address [address] [place] [address] Phone Care Team Providers Care Quencher Operator Name Role Phone Regino Coleman MD Primary Care Provider Fallon Dillard MD Unavailable [phone] Jr Hogue MD Primary Care Provid er Chicho Hargrove MD Primary Care Provider [phone] Encounter Details Date Type Department Care Team (Late st Contact Info) Description 09/29/[address] [facility] MR Imaging, Black [address] [place] [address] Social History Tobacco Use Types Packs/Day Years [...] on filedocumented in this encounter Care Teams Quencher Operator Relationship Specialty Start Date End Date Regino Coleman MD [address] [place] [address] Dr Greenke RICKY [address] PCP - General Internal Medicine 04/29/18 04/04/25 Jr Hogue MD [address] Rob [address] [place] [address] PCP - General Internal Medicine 04/05/25 08/07/25 Chicho Hargrove MD [address] [place] [address] [address] PCP - General Internal Medicine 08/08/25 Fallon Dillard MD [address] [place] [address] [email or web address] Referring Physician Hematology and Oncology 04/29/18 documented as of this encounter Additional Source Comments The information contained in this document represents components of the legal health record. It is not the complete legal health record.[facility]
== END 2025-09-28 16:15 | disposition home or self-care (01) ==
LOC: HO.PMC 15:50
PROVIDERS: PCP Student in an Organized Health Care Education/Training Program; Visit Provider Nurse Practitioner Family
DX: M54.50 Low back pain, unspecified (principal); G89.29 Other chronic pain; M54.9 Dorsalgia, unspecified; M89.9 Disorder of bone, unspecified; M51.369 Other intervertebral disc degeneration, lumbar region without mention of lumbar back pain or lower extremity pain; M47.817 Spondylosis without myelopathy or radiculopathy, lumbosacral region
CPT/HCPCS: 99214

== ENCOUNTER 2025-09-28 15:49 | Outpatient (REF) | payer MEDICARE, OTHER, SELFPAY ==
--- NOTE | ~2025-09-28 | XR_ITS ---
EXAMINATION: XR THORACIC SPINE CLINICAL INFORMATION: M54.50 - Low back pain, unspecified COMPARISON: Chest 2 views 06/04/2025 TECHNIQUE: 3 views of the thoracic spine were obtained. FINDINGS: There is maintained thoracic kyphosis. The vertebral heights and alignment are normal. Mild degenerative disc changes are seen throughout dorsal spine. There is no visible acute fracture, dislocation or subluxation seen. There is mild levoscoliosis dorsolumbar spine. The soft tissues are normal. XR/XR thoracic spine 3V IMPRESSION: Mild levoscoliosis dorsolumbar junction. Otherwise no visible acute fracture or lytic or sclerotic process.. Electronically signed by: Perry Fernandez MD 10/01/2025 07:26 AM DEREK
== END 2025-09-28 15:50 | disposition home or self-care (01) ==
LOC: HO.XRAY 15:49
PROVIDERS: PCP Student in an Organized Health Care Education/Training Program; Visit Provider Nurse Practitioner Family
DX: M51.362 Other intervertebral disc degeneration, lumbar region with discogenic back pain and lower extremity pain (principal); M47.817 Spondylosis without myelopathy or radiculopathy, lumbosacral region; M89.9 Disorder of bone, unspecified; R07.89 Other chest pain
CPT/HCPCS: 36415; 72072; 85652; 86141; 99212

== ENCOUNTER → 2025-09-28 16:21 | Outpatient (BNV) | payer MEDICARE, OTHER, SELFPAY | PROVIDERS: PCP Student in an Organized Health Care Education/Training Program; Visit Provider Radiology Diagnostic Radiology | DX: M41.86 Other forms of scoliosis, lumbar region (principal) | CPT/HCPCS: 72072 ==

== ENCOUNTER 2025-10-01 10:25 | Outpatient (AMB) | payer MEDICARE, OTHER, SELFPAY ==
--- OUTSIDE RECORDS SUMMARY | 2025-10-01 12:45 | XMS_ITS | Encounter Summary ---
Author Organization [facility] Address [address] [place] [address] Phone Care Team Providers Care Engineering Group Manager Name Role Phone Regino Coleman MD Primary Care Provider Fallon Dillard MD Unavailable [phone] Jr Hogue MD Primary Care Provid er Chicho Hargrove MD Primary Care Provider [phone] Encounter Details Date Type Department Care Team (Late st Contact Info) Description 06/16/2018 Procedure Pass [facility] Periop [address] [place] [address] Social History Tobacco Use Types Packs/Day Years [...] filedocumented in this encounter Care Teams Engineering Group Manager Relationship Specialty Start Date End Date Regino Coleman MD [address] [place] [address] Dr Jones RICKY [address] PCP - General Internal Medicine 04/29/18 04/04/25 Jr Hogue MD [address] Rob [address] [place] [address] PCP - General Internal Medicine 04/05/25 08/07/25 Chicho Hargrove MD [address] [address] PCP - General Internal Medicine 08/08/25 Fallon Dillard MD [address] [place] [address] [email or web address] Referring Physician Hematology and Oncology 04/29/18 documented as of this encounter Additional Source Comments The information contained in this document represents components of the legal health record. It is not the complete legal health record.[facility]
--- OUTSIDE RECORDS SUMMARY | 2025-10-01 12:45 | XMS_ITS | Encounter Summary ---
Author Organization [facility] Address [address] [place] [address] Phone Care Team Providers Care Electric Motor Winders Assembler Name Role Phone Regino Coleman MD Primary Care Provider Fallon Dillard MD Unavailable [phone] Jr Hogue MD Primary Care Provid er Chicho Hargrove MD Primary Care Provider [phone] Encounter Details Date Type Department Care Team (Late st Contact Info) Description 05/11/2022 Procedure Pass [facility], [address] [address] Social History Tobacco Use Types Packs/Day Years [...] on filedocumented in this encounter Care Teams Electric Motor Winders Assembler Relationship Specialty Start Date End Date Regino Coleman MD [address] [place] [address] Dr Jones RICKY [address] PCP - General Internal Medicine 04/29/18 04/04/25 Jr Hogue MD [address] [place] [address] Drive Rob [address] [place] [address] PCP - General Internal Medicine 04/05/25 08/07/25 Chicho Hargrove MD [address] [place] [address] [address] PCP - General Internal Medicine 08/08/25 Fallon Dillard MD [address] [place] [address] [email or web address] Referring Physician Hematology and Oncology 04/29/18 documented as of this encounter Additional Source Comments The information contained in this document represents components of the legal health record. It is not the complete legal health record.[facility]
--- OUTSIDE RECORDS SUMMARY | 2025-10-01 12:45 | XMS_ITS | Encounter Summary ---
Author Organization [facility] Address [address] [place] [address] Phone Care Team Providers Care Real Estate Lawyer Name Role Phone Regino Coleman MD Primary Care Provider [phone] Encounter Details Date Type Department Care Team (Late st Contact Info) Description 01/06/2023 Telephone [facility] [address] [place] [address] Ying Medrano Social History Tobacco [...] appt w/ [facility] and fax order to [facility] and they will call and book sooner appt. Pt stated that she is going to see her desk lieutenant in 2 weeks and her MD stated she will do th US in office. Pls advise if you would like her desk lieutenant to do US or move forward with the hospital. Her desk lieutenant does not have a radiology department. * Telephone Encounter - Ying Medrano - 01/06/2023 9:51 AM EDT PT says she has renal ultrasound scheduled for 03/01/23. PT wants to be seen sooner, she is asking for an earlier appointment and is willing to commute to [place] if she can get a sooner appointment. documented in this encounter Plan of Treatment Not on file documented as of this encounter Visit Diagnoses Not on filedocumented in this encounter Care Teams Real Estate Lawyer Relationship Specialty Start Date End Date Regino Coleman MD [address] [place] [address] DR[address] [place] PCP - General 10/21/20 documented as of this encounter
--- OUTSIDE RECORDS SUMMARY | 2025-10-01 12:45 | XMS_ITS | Encounter Summary ---
Author Organization [facility] Address [address] [place] [address] Phone Care Team Providers Care Tool Room Supervisor Name Role Phone Regino Coleman MD Primary Care Provider Fallon Dillard MD Unavailable [phone] Jr Hogue MD Primary Care Provid er Chicho Hargrove MD Primary Care Provider Encounter Details Date Type Department Care Team (Late st Contact Info) Description 06/10/2021 Ancillary Orders [facility],Outside Imaging [address] [place], [place] [id number] System, Provider [place] In, [place] [address] Social History Tobacco Use Types Packs/Day Years [...] on filedocumented in this encounter Care Teams Tool Room Supervisor Relationship Specialty Start Date End Date Regino Coleman MD [address] [place] [address] PCP - General Internal Medicine 04/29/18 04/04/25 Jr Hogue MD [address] [place] [address] PCP - General Internal Medicine 04/05/25 08/07/25 Chicho Hargrove MD [address] [place] [address] PCP - General Internal Medicine 08/08/25 Fallon Dillard MD [address] [place] [address] [email or web address] Referring Physician Hematology and Oncology 04/29/18 documented as of this encounter Additional Source Comments The information contained in this document represents components of the legal health record. It is not the complete legal health record.[facility]
--- OUTSIDE RECORDS SUMMARY | 2025-10-01 12:45 | XMS_ITS | Encounter Summary ---
Author Organization [facility] Address [address] [place] [address] Phone Care Team Providers Care Whittling Room Operator Name Role Phone Regino Coleman MD Primary Care Provider Fallon Dillard MD Unavailable [phone] Jr Hogue MD Primary Care Provid er Chicho Hargrove MD Primary Care Provider [phone] Encounter Details Date Type Department Care Team (Late st Contact Info) Description 08/15/2024 Procedure Pass [address] [place] [address] Social History Tobacco Use Types Packs/Day Years [...] on filedocumented in this encounter Care Teams Whittling Room Operator Relationship Specialty Start Date End Date Regino Coleman MD [address] [place] [address] PCP - General Internal Medicine 04/29/18 04/04/25 Jr Hogue MD [address] [place] [address] PCP - General Internal Medicine 04/05/25 08/07/25 Chicho Hargrove MD [address] [place] [address] PCP - General Internal Medicine 08/08/25 Fallon Dillard MD [address] [place] [address] [email or web address] Referring Physician Hematology and Oncology 04/29/18 documented as of this encounter Additional Source Comments The information contained in this document represents components of the legal health record. It is not the complete legal health record.[facility]
--- OUTSIDE RECORDS SUMMARY | 2025-10-01 12:45 | XMS_ITS | Encounter Summary ---
Author Organization [facility] Address [address] [place] [address] Phone Care Team Providers Care Talent Development Manager Name Role Phone Regino Coleman MD Primary Care Provider Fallon Dillard MD Unavailable [phone] Jr Hogue MD Primary Care Provid er Chicho Hargrove MD Primary Care Provider [phone] Encounter Details Date Type Department Care Team (Late st Contact Info) Description 04/27/2019 Procedure Pass [facility] MR Imaging, Black [address] [place] [address] Social History Tobacco Use Types Packs/Day Years [...] on filedocumented in this encounter Care Teams Talent Development Manager Relationship Specialty Start Date End Date Regino Coleman MD [address] [place] [address] Dr Greenke RICKY [address] PCP - General Internal Medicine 04/29/18 04/04/25 Jr Hogue MD [address] Rob [address] [place] [address] PCP - General Internal Medicine 04/05/25 08/07/25 Chicho Hargrove MD [address] [place] [address] [address] PCP - General Internal Medicine 08/08/25 Fallon Dillard MD [address] [place] [address] [email or web address] Referring Physician Hematology and Oncology 04/29/18 documented as of this encounter Additional Source Comments The information contained in this document represents components of the legal health record. It is not the complete legal health record.[facility]
--- OUTSIDE RECORDS SUMMARY | 2025-10-01 12:45 | XMS_ITS | Encounter Summary ---
Author Organization [facility] Address [address] [place] [address] Phone Care Team Providers Care Hemmer Chainstitch Name Role Phone Regino Coleman MD Primary Care Provider [phone] Encounter Details Date Type Department Care Team (Late st Contact Info) Description 11/25/2022 Telephone [facility] [address] [place] [address] Ying Medrano Social History Tobacco [...] called to relay that Dr. Reyes from [facility] had recently put a stent in [...] on filedocumented in this encounter Care Teams Hemmer Chainstitch Relationship Specialty Start Date End Date Regino Coleman MD [address] [address] VIRGINIERICKY FAUSTIN PCP - General 10/21/20 documented as of this encounter
--- OUTSIDE RECORDS SUMMARY | 2025-10-01 12:45 | XMS_ITS | Encounter Summary ---
Author Organization [facility] Address [address] [place] [address] Phone Care Team Providers Care Visual Merchandising Specialist Name Role Phone Regino Coleman MD Primary Care Provider Fallon Dillard MD Unavailable [phone] Jr Hogue MD Primary Care Provid er Chicho Hargrove MD Primary Care Provider Encounter Details Date Type Department Care Team (Late st Contact Info) Description 06/10/2021 Ancillary Orders [facility],Outside Imaging [address] [place], [place] [id number] System, Provider Not In, [place] [address] Social History Tobacco Use Types Packs/Day Years [...] on filedocumented in this encounter Care Teams Visual Merchandising Specialist Relationship Specialty Start Date End Date Regino Coleman MD [address] [place] [address] PCP - General Internal Medicine 04/29/18 04/04/25 Jr Hogue MD [address] [place] [address] PCP - General Internal Medicine 04/05/25 08/07/25 Chicho Hargrove MD [address] [place] [address] PCP - General Internal Medicine 08/08/25 Fallon Dillard MD [address] [place] [address] [email or web address] Referring Physician Hematology and Oncology 04/29/18 documented as of this encounter Additional Source Comments The information contained in this document represents components of the legal health record. It is not the complete legal health record.[facility]
--- OUTSIDE RECORDS SUMMARY | 2025-10-01 12:45 | XMS_ITS | Encounter Summary ---
Author Organization [facility] Address [address] [place] [address] Phone Care Team Providers Care Sintering Plant Supervisor Name Role Phone Regino Coleman MD Primary Care Provider Fallon Dillard MD Unavailable [phone] Jr Hogue MD Primary Care Provid er Chicho Hargrove MD Primary Care Provider Encounter Details Date Type Department Care Team (Late st Contact Info) Description 05/24/2018 Procedure Pass [facility] OUTSIDE IMG [address] [place] [address] Social History Tobacco Use Types Packs/Day Years [...] on filedocumented in this encounter Care Teams Sintering Plant Supervisor Relationship Specialty Start Date End Date Regino Coleman MD [address] [place] [address] Dr DYER RICKY Bronson [address] PCP - General Internal Medicine 04/29/18 04/04/25 Jr Hogue MD [address] Rob [address] [place] [address] PCP - General Internal Medicine 04/05/25 08/07/25 Chicho Hargrove MD [address] [facility] [address] [place] [address] PCP - General Internal Medicine 08/08/25 Fallon Dillard MD [address] [place] [address] [email or web address] Referring Physician Hematology and Oncology 04/29/18 documented as of this encounter Additional Source Comments The information contained in this document represents components of the legal health record. It is not the complete legal health record.[facility]
--- OUTSIDE RECORDS SUMMARY | 2025-10-01 12:45 | XMS_ITS | Encounter Summary ---
Author Organization [facility] Address [address] [place] [address] Phone Care Team Providers Care Soft Metals Engraver Hand Name Role Phone Regino Coleman MD Primary Care Provider Fallon Dillard MD Unavailable [phone] Jr Hogue MD Primary Care Provid er Chicho Hargrove MD Primary Care Provider Encounter Details Date Type Department Care Team (Late st Contact Info) Description 06/10/2021 Ancillary Orders [facility],Outside Imaging [address] [place], [place] [id number] System, Provider Not In, [place] [address] Social History Tobacco Use Types Packs/Day Years [...] on filedocumented in this encounter Care Teams Soft Metals Engraver Hand Relationship Specialty Start Date End Date Regino Coleman MD [address] [place] [address] PCP - General Internal Medicine 04/29/18 04/04/25 Jr Hogue MD [address] [place] [address] PCP - General Internal Medicine 04/05/25 08/07/25 Chicho Hargrove MD [address] [place] [address] PCP - General Internal Medicine 08/08/25 Fallon Dillard MD [address] [place] [address] [email or web address] Referring Physician Hematology and Oncology 04/29/18 documented as of this encounter Additional Source Comments The information contained in this document represents components of the legal health record. It is not the complete legal health record.[facility]
--- OUTSIDE RECORDS SUMMARY | 2025-10-01 12:45 | XMS_ITS | Encounter Summary ---
Author Organization [facility] Address [address] [place] [address] Phone Care Team Providers Care Derrick Builder Name Role Phone Regino Coleman MD Primary Care Provider Fallon Dillard MD Unavailable [phone] Jr Hogue MD Primary Care Provid er Chicho Hargrove MD Primary Care Provider [phone] Encounter Details Date Type Department Care Team (Late st Contact Info) Description 06/15/2019 Procedure Pass [facility] MR Imaging, Black [address] [place] [address] Social History Tobacco Use Types Packs/Day Years [...] on filedocumented in this encounter Care Teams Derrick Builder Relationship Specialty Start Date End Date Regino Coleman MD [address] [place] [address] Dr Greenke RICKY [address] PCP - General Internal Medicine 04/29/18 04/04/25 Jr Hogue MD [address] Rob [address] [place] [address] PCP - General Internal Medicine 04/05/25 08/07/25 Chicho Hargrove MD [address] [place] [address] [address] PCP - General Internal Medicine 08/08/25 Fallon Dillard MD [address] [place] [address] [email or web address] Referring Physician Hematology and Oncology 04/29/18 documented as of this encounter Additional Source Comments The information contained in this document represents components of the legal health record. It is not the complete legal health record.[facility]
--- OUTSIDE RECORDS SUMMARY | 2025-10-01 12:45 | XMS_ITS | Clinical Summary ---
Author Organization [facility] Address [address] [place] [address] Phone Care Team Providers Care Artistic Associate Name Role Phone Fallon Dillard MD Unavailable [phone] Chicho Hargrove MD Primary Care Provider [...] with hand surgeon Dr. Mary Boss in [place] Regular use of meloxicam previously effective, but [...] will continue to follow up with her rate clerk passenger to optimize renal function. Assessment & Plan [...] will continue to follow up with her rate clerk passenger to optimize renal function. Assessment & Plan [...] pathology by [facility], Department of Pathology suggests that it [...] Team Description 09/04/2025 11:50 AM EST Telemedicine [facility] [address] [address] Ayaan Corrales MD Personal history of kidney cancer (Primary Dx) 08/08/2025 9:34 AM EDT - 08/08/2025 11:59 PM EDT Hospital Encounter [facility], X-Ray - [address] [place] [address] Ayaan Corrales MD Discharge Disposition: Home or Self Care 08/08/2025 9:34 AM EDT - 08/08/2025 11:59 PM EDT Hospital Encounter [address] [place] [address] Ayaan Corrales MD Discharge Disposition: Home or Self Care 08/07/2025 1:54 PM EDT - 08/07/2025 11:59 PM EDT Hospital Encounter [facility] [address] [place] [address] Ayaan Corrales MD Discharge Disposition: Home or Self Care 08/15/2024 Procedure Pass [address] [place] [address] from Last 3 Months Immunizations Immunization Administration [...] clinician's provided indication for this examination in [facility]: Urologic cancer, surveillance; History of [...] clinician's provided indication for this examination in [facility]:Urologic cancer, surveillance; History of kidney [...] EDT) SODIUM 139 133 - 146 mmol/L [facility] CHLORIDE 103 96 - 108 mmol/L [facility] POTASSIUM 4.5 3.3 - 5.1 mmol/L [facility] CO2 23 21 - 35 mmol/L [facility] BUN 10 6 - 19 mg/dL [facility] CREATININE 1.00 0.5 - 1.5 mg/dL [facility] GLUCOSE 130(H) 70 - 99 mg/dL [facility] CALCIUM 9.7 8.4 - 10.3 mg/dL [facility] EGFR 61 >59 mL/min/1.7 3m2 [facility] Comment:Estimated glomerular filtration rate calculated using the CKD-EPI refit equation. ANION GAP 18 10 - 20 mmol/L [facility] Blood 08/07/2025 2:18 PM EDT 08/07/2025 2:21 PM EDT Ayaan Corrales MD LAB BLOOD BKR ORDERABLES Final Result Performing Organization Address City/State/[facility] Co de Phone Number [address] [address] from Last 3 Months Insurance MEDICARE PART A & B [facility] [employer] MEDICARE SUPPLEMENT MEDICARE PART A & B [facility] EXTENSION MEDICARE SUPPLEMENT MEDICARE PART A & B MEDICARE SUPPLEMENT MEDICARE PART A & B [facility] MEDICARE SUPPLEMENT MEDICARE PART A & B [employer] MEDICARE SUPPLEMENT MEDICARE PART A & B [employer] [place] [address] MEDICARE PART A & B [facility] MEDICARE SUPPLEMENT MEDICARE PART A & [facility]TENSION MEDICARE SUPPLEMENT MEDICARE PART A & B Member Subscriber Plan / Payer ( fective 2019-Present) Name:Rebekah Hahn Stehpen Member ID:[id number] Relation to Subscriber:Self Name:Rebekah Hahn Subscriber ID:[id number] Payer ID:[id number] Group ID:Not on file Type:Medicare Address: [employer] 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 Healthcare Proxy 06/09/2018 10:59 AM 12-10 -2015 * Full Code (Presumed) (Latest Code Status on File) Date Activated Date Inactivated Comments 06/16/2018 1:39 PM 06/18/2018 3:12 PM Healthcare Agents on File Name Relationship Healthcare Agent Relationship Communication Orlin Hahn Spouse .Primary Health Care Agent (Proxy form on file) Care Teams Artistic Associate Relationship Specialty Start Date End Date Chicho Hargrove MD [address] [place] [address] [place] [address] PCP - General Internal Medicine 08/08/25 Fallon Dillard MD [address] [place] [address] [email or web address] [facility].[employer]uation App Referring Physician Hematology and Oncology 04/29/18 Additional Source Comments The information contained in this document represents components of the legal health record. It is not the complete legal health record.[facility]
--- OUTSIDE RECORDS SUMMARY | 2025-10-01 12:45 | XMS_ITS | Encounter Summary ---
Author Organization [facility] Address [address] [place] [address] Phone Care Team Providers Care Black Top Paver Operator Name Role Phone Regino Coleman MD Primary Care Provider Fallon Dillard MD Unavailable [phone] Jr Hogue MD Primary Care Provid er Chicho Hargrove MD Primary Care Provider Encounter Details Date Type Department Care Team (Late st Contact Info) Description 07/02/2020 Procedure Pass [facility], [address] [address] Social History Tobacco Use Types Packs/Day Years [...] on filedocumented in this encounter Care Teams Black Top Paver Operator Relationship Specialty Start Date End Date Regino Coleman MD [address] [place] [address] [place] [address] PCP - General Internal Medicine 04/29/18 04/04/25 Jr Hogue MD [facility] [address] Rob [address] [place] [address] PCP - General Internal Medicine 04/05/25 08/07/25 Chicho Hargrove MD [address] [place] [address] [address] PCP - General Internal Medicine 08/08/25 Fallon Dillard MD [address] [place] [address] [email or web address] Referring Physician Hematology and Oncology 04/29/18 documented as of this encounter Additional Source Comments The information contained in this document represents components of the legal health record. It is not the complete legal health record.[facility]
--- OUTSIDE RECORDS SUMMARY | 2025-10-01 12:46 | XMS_ITS | Clinical Summary ---
Author Organization [facility] Address [address] [facility] [place] [address] Care Team Providers Care Guard Dance Hall Name Role Phone Regino Coleman MD Primary Care Provider [phone] Allergies Active Allergy Reactions Criticality Noted Date [...] initially though review of the pathology by [facility], Department of Pathology suggests that [...] date. Immunizations Immunization Administration Dates Next Due [employer] SARS-COV-2 12/14/2020 Snoox SARS-COV-2 08/06/2021 Pneumococcal Conjugate 13-Valent 12/29/2019 Family [...] age to complete this topic Insurance Medicare Community Health Medicare Community Health Care Teams Guard Dance Hall Relationship Specialty Start Date End Date Regino Coleman MD [address] RICKY CARO PCP - General 10/21/20
--- OUTSIDE RECORDS SUMMARY | 2025-10-01 12:46 | XMS_ITS | Encounter Summary ---
Author Organization [facility] Address [address] [place] [address] Phone Care Team Providers Care Porcelain Enamel Laborer Name Role Phone Regino Coleman MD Primary Care Provider Fallon Dillard MD Unavailable [phone] Jr Hogue MD Primary Care Provid er Chicho Hargrove MD Primary Care Provider Encounter Details Date Type Department Care Team (Late st Contact Info) Description 07/07/2022 Procedure Pass [facility], [address] [address] Social History Tobacco Use Types Packs/Day Years [...] on filedocumented in this encounter Care Teams Porcelain Enamel Laborer Relationship Specialty Start Date End Date Regino Coleman MD [address] [place] [address] Dr Jones RICKY [address] PCP - General Internal Medicine 04/29/18 04/04/25 Jr Hogue MD [address] [place] [address] Drive Rob [address] [place] [address] PCP - General Internal Medicine 04/05/25 08/07/25 Chicho Hargrove MD [address] [place] [address] [address] PCP - General Internal Medicine 08/08/25 Fallon Dillard MD [address] [place] [address] [email or web address] Referring Physician Hematology and Oncology 04/29/18 documented as of this encounter Additional Source Comments The information contained in this document represents components of the legal health record. It is not the complete legal health record.[facility]
--- OUTSIDE RECORDS SUMMARY | 2025-10-01 12:46 | XMS_ITS | Encounter Summary ---
Author Organization [facility] Address [address] [place] [address] [place] [address] Phone Care Team Providers Care Senior Media Planner Name Role Phone Regino Coleman MD Primary Care Provider Fallon Dillard MD Unavailable [phone] Jr Hogue MD Primary Care Provid er Chicho Hargrove MD Primary Care Provider [phone] Encounter Details Date Type Department Care Team (Late st Contact Info) Description 06/23/2018 Procedure Pass [facility] [address] [place] [address] Social History Tobacco Use Types Packs/Day Years [...] in this encounter Care Teams Senior Media Planner Relationship Specialty Start Date End Date Regino Coleman MD [address] [place] [address] Dr Jones RICKY [address] PCP - General Internal Medicine 04/29/18 04/04/25 Jr Hogue MD [address] [facility] [address] Rob [address] [place] [address] PCP - General Internal Medicine 04/05/25 08/07/25 Chicho Hargrove MD [address] [place] [address] [address] PCP - General Internal Medicine 08/08/25 Fallon Dillard MD [address] [place] [address] [email or web address] Referring Physician Hematology and Oncology 04/29/18 documented as of this encounter Additional Source Comments The information contained in this document represents components of the legal health record. It is not the complete legal health record.[facility]
--- OUTSIDE RECORDS SUMMARY | 2025-10-01 12:46 | XMS_ITS | Encounter Summary ---
Author Organization [facility] Address [address] [place] [address] Phone Care Team Providers Care Brim Stiffener Name Role Phone Regino Coleman MD Primary Care Provider Fallon Dillard MD Unavailable Jr Hogue MD Primary Care Provid er Chicho Hargrove MD Primary Care Provider [phone] Encounter Details Date Type Department Care Team (Late st Contact Info) Description 08/19/2023 Procedure Pass [facility], [address] [address] Social History Tobacco Use Types Packs/Day Years [...] on filedocumented in this encounter Care Teams Brim Stiffener Relationship Specialty Start Date End Date Regino Coleman MD [address] [place] [address] PCP - General Internal Medicine 04/29/18 04/04/25 Jr Hogue MD [address] [place] [address] PCP - General Internal Medicine 04/05/25 08/07/25 Chicho Hargrove MD [address] [place] [address] PCP - General Internal Medicine 08/08/25 Fallon Dillard MD [address] [place] [address] [email or web address] Referring Physician Hematology and Oncology 04/29/18 documented as of this encounter Additional Source Comments The information contained in this document represents components of the legal health record. It is not the complete legal health record.[facility]
--- OUTSIDE RECORDS SUMMARY | 2025-10-01 12:46 | XMS_ITS | Encounter Summary ---
Author Organization [facility] Address [address] [place] [address] Phone Care Team Providers Care Translator Interpreter Name Role Phone Regino Coleman MD Primary Care Provider Fallon Dillard MD Unavailable [phone] Jr Hogue MD Primary Care Provid er Chicho Hargrove MD Primary Care Provider [phone] Encounter Details Date Type Department Care Team (Late st Contact Info) Description 01/05/2019 Procedure Pass [facility] MR Imaging, Black [address] [place] [address] Social History Tobacco Use Types Packs/Day Years [...] on filedocumented in this encounter Care Teams Translator Interpreter Relationship Specialty Start Date End Date Regino Coleman MD [address] [place] [address] Dr Greenke RICKY [address] PCP - General Internal Medicine 04/29/18 04/04/25 Jr Hogue MD [address] [facility] [facility] [address] Rob [address] [place] [address] PCP - General Internal Medicine 04/05/25 08/07/25 Chicho Hargrove MD [address] [place] [address] [address] PCP - General Internal Medicine 08/08/25 Fallon Dillard MD [address] [place] [address] [email or web address] Referring Physician Hematology and Oncology 04/29/18 documented as of this encounter Additional Source Comments The information contained in this document represents components of the legal health record. It is not the complete legal health record.[facility]
--- OUTSIDE RECORDS SUMMARY | 2025-10-01 12:46 | XMS_ITS | Encounter Summary ---
Author Organization [facility] Address [address] [place] [address] Phone Care Team Providers Care Foundation Relations Director Name Role Phone Regino Coleman MD Primary Care Provider Fallon Dillard MD Unavailable [phone] Jr Hogue MD Primary Care Provid er Chicho Hargrove MD Primary Care Provider [phone] Encounter Details Date Type Department Care Team (Late st Contact Info) Description 09/29/2018 Procedure Pass [facility] MR Imaging, Black [address] [place] [address] Social History Tobacco Use Types Packs/Day Years [...] on filedocumented in this encounter Care Teams Foundation Relations Director Relationship Specialty Start Date End Date Regino Coleman MD [address] [place] [address] Dr Greenke RICKY [address] PCP - General Internal Medicine 04/29/18 04/04/25 Jr Hogue MD [address] [facility] [address] [facility] [address] Rob [address] [place] [address] PCP - General Internal Medicine 04/05/25 08/07/25 Chicho Hargrove MD [address] [place] [address] [address] PCP - General Internal Medicine 08/08/25 Fallon Dillard MD [address] [place] [address] [employer] Referring Physician Hematology and Oncology 04/29/18 documented as of this encounter Additional Source Comments The information contained in this document represents components of the legal health record. It is not the complete legal health record.[facility]
== END 2025-10-01 10:26 | disposition home or self-care (01) ==
LOC: HO.HMGAL 10:25
PROVIDERS: PCP Student in an Organized Health Care Education/Training Program; Visit Provider Registered Nurse Emergency
DX: J30.89 Other allergic rhinitis (principal)
CPT/HCPCS: 95117; 95165